=== PATIENT | male | born 1950 | race Caucasian/White ===

== ENCOUNTER → 2023-08-13 07:32 | Outpatient (REF) | payer MEDICARE, OTHER, SELFPAY ==
[2023-08-13 08:12] LABS: % Basophils 0.7 % (0-2); % Eosinophils 2.5 % (0-6); % Immature Granulocytes 1.1 % (0-0.5); % Lymphocytes 27.8 % (20.5-51.1); % Monocytes 11.7 % (1.7-9.3); % Neutrophils 56.2 % (42.2-75.2); Absolute Eosinophils 0.1 10^3/uL (0-0.7); Absolute Immature Granulocytes 0.1 10^3/uL (0-0.05); Absolute Lymphocytes 1.2 10^3/uL (1.2-3.4); Absolute Monocytes 0.5 10^3/uL (0.1-0.6); Absolute Neutrophils 2.5 10^3/uL (1.4-6.5); Hematocrit 29.2 % (39.0-52.0); Hemoglobin 9.4 g/dL (13.0-18.0); Mean Corp Hgb Conc. 32.2 g/dL (33.0-37.0); Mean Corpuscular Hgb 32.9 pg (27.0-31.0); Mean Corpuscular Volume 102.1 fL (80.0-94.0); Mean Platelet Volume 10.2 fL (7.4-10.4); Nucleated Red Blood Cells % 0 % (-); Platelet Count 190 10^3/uL (130-400); Red Blood Cell Count 2.86 10^6/uL (4.70-6.10); Red Cell Dist. Width 14.7 % (11.5-14.5); White Blood Cell Count 4.4 10^3/uL (4.8-10.8)
[2023-08-13 08:49] LABS: ALT (SGPT) 16 U/L (0-50); AST (SGOT) 14 U/L (17-59); Albumin 3.2 g/dl (3.5-5.0); Alkaline Phosphatase 59 U/L (38-126); Blood Urea Nitrogen 25 mg/dl (9-20); Calcium 9.1 mg/dl (8.4-10.2); Carbon Dioxide 22 mmol/L (22-30); Chloride 108 mmol/L (98-107); Glucose 166 mg/dl (70-99); Potassium 4.4 mmol/L (3.5-5.1); Sodium 134 mmol/L (135-145); Total Bilirubin 1.1 mg/dl (0.2-1.3); Total Protein 7.3 g/dl (6.3-8.2); eGFR > 60.00
[2023-08-13 11:16] LABS: Iron 103 ug/dl (49-181)
[2023-08-13 11:25] LABS: Percent Saturation 39 % (20-50); Total Iron Binding Capacity 263 ug/dl (261-462)
== END ==
LOC: REG 07:32
PROVIDERS: ATTENDING PHYSICIAN Internal Medicine Hematology & Oncology; FAMILY PHYSICIAN Internal Medicine Hematology & Oncology; OTHER PHYSICIAN Family Medicine; OTHER PHYSICIAN Internal Medicine Hematology & Oncology; REFERRING PHYSICIAN Internal Medicine Hematology & Oncology
DX: C61 Malignant neoplasm of prostate (principal); E53.9 Vitamin B deficiency, unspecified; D64.9 Anemia, unspecified; C90.00 Multiple myeloma not having achieved remission; C79.51 Secondary malignant neoplasm of bone; D64.81 Anemia due to antineoplastic chemotherapy; N39.0 Urinary tract infection, site not specified
CPT/HCPCS: 36415; 80053; 82728; 83540; 83550; 85025

== ENCOUNTER → 2023-08-20 08:43 | Outpatient (REF) | payer MEDICARE, OTHER, SELFPAY ==
[2023-08-20 09:15] LABS: % Basophils 0.2 % (0-2); % Eosinophils 3.4 % (0-6); % Immature Granulocytes 2.2 % (0-0.5); % Lymphocytes 37.3 % (20.5-51.1); % Neutrophils 42.9 % (42.2-75.2); Absolute Eosinophils 0.1 10^3/uL (0-0.7); Absolute Immature Granulocytes 0.1 10^3/uL (0-0.05); Absolute Lymphocytes 1.5 10^3/uL (1.2-3.4); Absolute Monocytes 0.6 10^3/uL (0.1-0.6); Absolute Neutrophils 1.8 10^3/uL (1.4-6.5); Hematocrit 32.5 % (39.0-52.0); Hemoglobin 10.3 g/dL (13.0-18.0); Mean Corp Hgb Conc. 31.7 g/dL (33.0-37.0); Mean Corpuscular Hgb 33.2 pg (27.0-31.0); Mean Corpuscular Volume 104.8 fL (80.0-94.0); Nucleated Red Blood Cells % 0.5 % (-); Red Cell Dist. Width 15.9 % (11.5-14.5); White Blood Cell Count 4.1 10^3/uL (4.8-10.8)
[2023-08-20 09:27] LABS: ALT (SGPT) 17 U/L (0-50); AST (SGOT) 13 U/L (17-59); Alkaline Phosphatase 66 U/L (38-126); Blood Urea Nitrogen 28 mg/dl (9-20); Calcium 7.9 mg/dl (8.4-10.2); Carbon Dioxide 21 mmol/L (22-30); Chloride 110 mmol/L (98-107); Glucose 166 mg/dl (70-99); Potassium 4.5 mmol/L (3.5-5.1); Sodium 135 mmol/L (135-145); Total Bilirubin 1.1 mg/dl (0.2-1.3); Total Protein 6.6 g/dl (6.3-8.2); eGFR > 60.00
[2023-08-20 10:00] LABS: PSA, Total - Diagnostic < 0.06 ng/ml (0.0-4.0)
[2023-08-20 10:40] LABS: Mean Platelet Volume 11.2 fL (7.4-10.4); Platelet Count 126 10^3/uL (130-400)
== END ==
LOC: REG 08:43
PROVIDERS: ATTENDING PHYSICIAN Internal Medicine Hematology & Oncology; OTHER PHYSICIAN Family Medicine; OTHER PHYSICIAN Internal Medicine Hematology & Oncology; REFERRING PHYSICIAN Specialist
DX: C61 Malignant neoplasm of prostate (principal); E53.9 Vitamin B deficiency, unspecified; D64.9 Anemia, unspecified; C90.00 Multiple myeloma not having achieved remission; D64.81 Anemia due to antineoplastic chemotherapy; N39.0 Urinary tract infection, site not specified
CPT/HCPCS: 36415; 80053; 84153; 84403; 85025

== ENCOUNTER → 2023-08-27 08:11 | Outpatient (REF) | payer MEDICARE, OTHER, SELFPAY ==
[2023-08-27 09:00] LABS: % Eosinophils 1.2 % (0-6); % Immature Granulocytes 0.7 % (0-0.5); % Monocytes 14.4 % (1.7-9.3); % Neutrophils 55.7 % (42.2-75.2); Absolute Eosinophils 0.1 10^3/uL (0-0.7); Absolute Lymphocytes 1.1 10^3/uL (1.2-3.4); Absolute Monocytes 0.6 10^3/uL (0.1-0.6); Absolute Neutrophils 2.2 10^3/uL (1.4-6.5); Hemoglobin 9.9 g/dL (13.0-18.0); Mean Corp Hgb Conc. 31.9 g/dL (33.0-37.0); Mean Corpuscular Hgb 32.7 pg (27.0-31.0); Mean Corpuscular Volume 102.3 fL (80.0-94.0); Mean Platelet Volume 11.2 fL (7.4-10.4); Nucleated Red Blood Cells % 0 % (-); Platelet Count 150 10^3/uL (130-400); Red Blood Cell Count 3.03 10^6/uL (4.70-6.10); Red Cell Dist. Width 16.3 % (11.5-14.5)
[2023-08-27 09:31] LABS: ALT (SGPT) 15 U/L (0-50); AST (SGOT) 12 U/L (17-59); Albumin 2.8 g/dl (3.5-5.0); Alkaline Phosphatase 64 U/L (38-126); Blood Urea Nitrogen 29 mg/dl (9-20); Calcium 8.5 mg/dl (8.4-10.2); Carbon Dioxide 20 mmol/L (22-30); Chloride 107 mmol/L (98-107); Glucose 176 mg/dl (70-99); Potassium 4.7 mmol/L (3.5-5.1); Sodium 136 mmol/L (135-145); Total Protein 6.9 g/dl (6.3-8.2); eGFR > 60.00
== END ==
LOC: REG 08:11
PROVIDERS: ATTENDING PHYSICIAN Internal Medicine Hematology & Oncology; FAMILY PHYSICIAN Family Medicine; OTHER PHYSICIAN Internal Medicine Cardiovascular Disease; REFERRING PHYSICIAN Internal Medicine Hematology & Oncology
DX: C61 Malignant neoplasm of prostate (principal); E53.9 Vitamin B deficiency, unspecified; D64.9 Anemia, unspecified
CPT/HCPCS: 36415; 80053; 85025

== ENCOUNTER 2023-08-30 21:15 | Observation (INO) | payer MEDICARE, OTHER, SELFPAY ==
[2023-08-30] VITALS (8 sets, daily range): BP systolic 120–142; BP diastolic 75–87; BMI 31.7; BMI 30.8
[2023-08-30 16:23] LABS: % Eosinophils 0.9 % (0-6); % Immature Granulocytes 1.2 % (0-0.5); % Lymphocytes 19.4 % (20.5-51.1); % Monocytes 18.2 % (1.7-9.3); % Neutrophils 60.3 % (42.2-75.2); Absolute Lymphocytes 0.7 10^3/uL (1.2-3.4); Absolute Monocytes 0.6 10^3/uL (0.1-0.6); Absolute Neutrophils 2.1 10^3/uL (1.4-6.5); Hematocrit 29.3 % (39.0-52.0); Hemoglobin 9.8 g/dL (13.0-18.0); Mean Corp Hgb Conc. 33.4 g/dL (33.0-37.0); Mean Corpuscular Hgb 33.1 pg (27.0-31.0); Nucleated Red Blood Cells % 2.1 % (-); Platelet Count 140 10^3/uL (130-400); Red Blood Cell Count 2.96 10^6/uL (4.70-6.10); Red Cell Dist. Width 16.1 % (11.5-14.5); White Blood Cell Count 3.4 10^3/uL (4.8-10.8)
[2023-08-30 16:32] LABS: INR 1.15; PT 14.8 Sec (11.4-14.6)
[2023-08-30 16:33] LABS: APTT 25.4 Sec (23.4-35.0)
--- NOTE | 2023-08-30 16:34 | ED.GENMED ---
History of Present Illness
General
Chief Complaint: Breathing Problem
Source: patient
Exam Limitations: none
Time Seen by Provider: 08/30/23 16:22
Travel History
Have you had any contact with someone who has COVID-19?: No
Do you have any symptoms of coronavirus? Fever > 100 degrees, chills, cough, shortness of breath, sore throat, loss of taste or smell, muscle aches, or headache?: No
History of Present Illness
History of Present Illness:
See MDM
Past History
Past History
ED Past Medical History: Cancer, HTN and Other (renal stones, diveticulitis, hx of urosepsis)
ED Past Surgical History: None
Social History
Tobacco: Non-smoker
Personal:
Living: with family
Employment: Employed
Phy Exam
Physical Exam
Physical Exam:
See MDM
Scores
Heart Failure Risk
Heart Failure Risk Score: Yes
History of Stroke or TIA: No
History of intubation for respiratory distress: No
Heart rate on ED arrival >/= 110: Yes
SaO2 <90% on arrival on room air: No
HR >/=110 during 3min walk test (or too ill to perform test): Yes
ECG has acute ischemic changes: No
Urea >/=12mmol/L (BUN 33.6mg/dL): Yes
Serum CO2>/=35mmol/L: No
Troponin I or T elevated to SC Level (0.4mg/dL): No
NT-proBNP >/=5,000ng/L (5,000pg/ml): Yes
HF Risk Score: 4
Admission Status: HIGH RISK 26.1% Consider SNF treatment or admission to hospital
Course
Orders/Labs/Results
Orders:
Orders
08/30/23 16:05
Electrocardiogram (*1) Urgent
Reason for Study: Tachycardia
08/30/23 16:06
EKG- Treatment ONCE
08/30/23 16:16
COVID-19 Antigen Urgent
Source: Nasal Swab
Complete Blood Count/With Diff Urgent
Comprehensive Metabolic Panel Urgent
Protime/PTT Urgent
Troponin I Urgent
Influenza A+B Rapid Molecular Urgent
EMELY Source: Nasal Swab
Specimen Description:
08/30/23 16:31
CT Chest Pe Study Urgent
Comment:
Reason For Exam: SOB, hx cancer
08/30/23 16:47
NT-proBNP Urgent
08/30/23 19:29
Furosemide [Lasix] 40 mg IV NOW STA
Abnormal Lab Results
08/30/23
16:16
WBC 3.4 L 10^3/uL
(4.8-10.8)
RBC 2.96 L 10^6/uL
(4.70-6.10)
Hgb 9.8 L g/dL
(13.0-18.0)
Hct 29.3 L %
(39.0-52.0)
MCV 99.0 H fL
(80.0-94.0)
MCH 33.1 H pg
(27.0-31.0)
RDW 16.1 H %
(11.5-14.5)
MPV 11.0 H fL
(7.4-10.4)
Absolute Lymphs (auto) 0.7 L 10^3/uL
(1.2-3.4)
Immature Gran % 1.2 H %
(0-0.5)
Lymphocytes % 19.4 L %
(20.5-51.1)
Monocytes % 18.2 H %
(1.7-9.3)
PT 14.8 H Sec
(11.4-14.6)
Carbon Dioxide 17 L mmol/L
(22-30)
BUN 48 H mg/dl
(9-20)
Glucose 289 H mg/dl
(70-99)
AST 14 L U/L
(17-59)
Albumin 3.1 L g/dl
(3.5-5.0)
08/30/23 16:16
08/30/23 16:16
Vital Signs
Initial and Last Documented VS:
Initial Vital Signs
Temp Pulse Resp BP Pulse Ox
98.1 F 115 18 125/75 95
08/30/23 16:03 08/30/23 16:03 08/30/23 16:03 08/30/23 16:03 08/30/23 16:03
Last Documented Vital Signs
Temp Pulse Resp BP Pulse Ox
98.1 F 110 30 138/87 91
08/30/23 16:03 08/30/23 18:45 08/30/23 18:45 08/30/23 18:16 08/30/23 18:45
MDM/Problems Addressed
Differential Diagnosis Includes:
HPI and MDM Narrative:
73-year-old male presenting for shortness of breath. He was seen by his process manufacturing engineer today and had an echo showing enlarged right ventricle. Given his tachycardia and history of active multiple myeloma, he was sent in to rule out PE. Patient
denies chest pain. He denies unilateral leg pain. He had developed bilateral distal leg pitting edema for which she was placed on Lasix.
Given his history, will obtain CT rule out PE
Physical exam
General: Well appearing and non-toxic
HEENT: protecting airway
Neck: appears supple
CV: No evidence of cyanosis. Tachycardic
Resp: No accessory muscle use. Tachypnea. Lungs clear
Abd: Non-distended
Extremities: No deformities. No leg tenderness
Neuro: alert
Psych: Normal affect
Skin: Intact
Problems Addressed including Acute and Chronic Conditions affecting care:
1. Shortness of breath
Acuity: acute
Prognosis: stable
Details: Given his history of cancer and worsening RV dilation on outpatient echo, will obtain CT to rule out PE
Updates
CT negative for PE. There are multiple nodules which could be metastatic disease. Given his elevated BNP, will give IV Lasix
I did touch base with his process manufacturing engineer who agrees with plan.
Differential Diagnosis (but not limited to): Pulmonary embolism, pneumonia
Testing considered: D-dimer but patient is high risk
Drug therapy (if applicable): OTC meds, please see d/c instruction regarding Rx drugs
Amount and/or Complexity of Data Reviewed
Clinical info obtained from: Patient
External data reviewed: N/A
Labs I independently reviewed (but not limited to): Elevated BNP
Radiology: The CT scan was personally and independently reviewed. In addition, official CT report reviewed.
Pulse Ox: not hypoxic
EKG independently reviewed: Sinus tachycardia, PACs, right bundle branch block, no STEMI
Gauge Maker Apprentice: N/A
Critical Care: N/A
Risk of Complication:
Social Determinants of health: Good social support
Discussed with other providers: Cardiology, hospitalist
Escalation of Care includes Admit/Obs: Given CHF exacerbation, will admit
Occasional wrong word or 'sound a like' substitutions may have occurred due to the inherent limitations of voice recognition software. Read the chart carefully and recognize, using context, where substitutions have occurred.
*Critical Care Note
Total Time (30-74mins, 75-104mins- exclusive of procedures): Not Applicable
ED Attending Note
-
Portions of this chart may have been created with voice recognition software.� Occasional wrong word or��sound alike� substitutions may have occurred due to the inherent limitations of voice recognition software.
Discharge Plan
Departure
Patient Disposition: Admit
Date of Disposition: 08/30/23
Time of Disposition: 19:35
Admit to: Telemetry
Presentation/result/management discussed w/ accepting MD/DO: Hospitalist
Discharge Problem:
Acute exacerbation of CHF (congestive heart failure)
Prescriptions:
No Action
aspirin 81 MG tablet,delayed release (DR/EC)
81 mg PO DAILY Qty: 0
valsartan 40 MG tablet
40 mg PO DAILY
red yeast rice 600 MG tablet
1,200 mg PO DAILY
cholecalciferol (vitamin D3) 1,000 UNITS tablet
1,000 units PO DAILY
cyanocobalamin (vitamin B-12) 1,000 mcg Tablet
1,000 mcg PO DAILY
acyclovir 400 mg Tablet
400 mg PO BID
tamsulosin [Flomax] 0.4 mg Capsule
0.4 mg PO QPM
dexamethasone 4 mg tablet
20 mg PO USEASDIRECTD
Patient Comments:
10/22/22- patients take with he gets valcade infuison
Rx Instructions:
Take once weekly on Sun/ for 3 weeks, 1 week off
loratadine [Claritin] 10 mg Tablet
10 mg PO DAILY PRN (Reason: allergies)
Xgeva 120 mg/1.7 mL (70 mg/mL) Solution
120 mg SC [id number]
coQ10 (ubiquinol) 100 mg Capsule
100 mg PO DAILY
zolpidem [Ambien] 5 mg Tablet
5 mg PO HS PRN (Reason: insomnia)
Patient Comments:
08/30/2023: last filled 04/23/23, 30 tabs for 30 days from [id number]
furosemide 40 mg tablet
40 mg PO DAILY
glipizide 5 mg tablet extended release 24hr
5 mg PO DAILY
sildenafil 100 mg tablet
100 mg PO DAILY PRN (Reason: ed)
metformin 750 mg tablet extended release 24 hr
1,500 mg PO BID
Pomalyst 2 mg capsule
2 mg PO USEASDIRECTD
Patient Comments:
08/30/2023: Pt just started cycle on Sunday (08/27/23)
Rx Instructions:
Take 1 tab daily for 21 days, 7 days off.
Kyprolis
0 mg IV USEASDIRECTD
Rx Instructions:
Once weekly for 3 weeks, 1 week off
Referrals:
Eloy Hunter MD [Family Provider] -
Interventions
Interventions:
*Risk Screen - Suicide Last Done: 08/30/23 16:03
*General Assessment Last Done: 08/30/23 16:03
*Neglect/Abuse Screening Last Done: 08/30/23 16:03
ED- Fall Risk Assessment Last Done: 08/30/23 17:41
*ED COVID-19 Vaccine History Last Done: 08/30/23 16:03
ED- Cardiac Assessment Last Done: 08/30/23 17:40
ED- Pulmonary Assessment Last Done: 08/30/23 17:40
[2023-08-30 16:45] LABS: ALT (SGPT) 22 U/L (0-50); AST (SGOT) 14 U/L (17-59); Albumin 3.1 g/dl (3.5-5.0); Alkaline Phosphatase 60 U/L (38-126); Blood Urea Nitrogen 48 mg/dl (9-20); Calcium 8.4 mg/dl (8.4-10.2); Carbon Dioxide 17 mmol/L (22-30); Chloride 107 mmol/L (98-107); Estimated Creatinine Clearance 56 ml/min; Glucose 289 mg/dl (70-99); Potassium 4.6 mmol/L (3.5-5.1); Sodium 135 mmol/L (135-145); Total Bilirubin 0.8 mg/dl (0.2-1.3); Total Protein 7.4 g/dl (6.3-8.2); Troponin I < 0.012 ng/ml; eGFR 57.65
[2023-08-30 16:55] LABS: COVID-19 Antigen Negative (Negative)
[2023-08-30 17:16] LABS: NT-proBNP 7040 pg/ml
[2023-08-30] MEDS: LASIX 40 MG IV (19:37)
--- NOTE | 2023-08-30 20:21 | HPS.HSE ---
Family Physician
-
Family Physician: Eloy Hunter
Chief Complaint
-
shortness of breath
History of Present Illness
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
June which has become significantly noticeable over the past few days. Shortness of breath with exertion. He denies any cough or hemoptysis or fevers or chills. He has also noticed increased heart rate over the past few days. Denies any
palpitations or dizziness. Denies any lower extremity edema. He was thought to be volume overloaded in June and was started on Lasix by his lead cashier Dr. Ginger Lal and lost 11 pounds at that time.
He was seen by Ginger and had echocardiogram today which showed enlarged RV and sent to emergency room to evaluate for pulmonary embolism.
Patient has history of multiple myeloma followed at [place]. He is currently on treatment with pomalidomide and Xgeva infusions which he has been on for a long time.
He is no longer on treatment for prostate cancer.
Denies smoking or alcohol use.
Medical History
Past Medical History
Past Medical History: Reports Other (multiple myeloma, anemia, prostate cancer status post prostatectomy and radiation, diabetes, hypertension, renal stones)
Past Surgical History: Reports None
Social History
Tobacco: Non-smoker
Alcohol: None
Drug: None
Family History
Family History: Not pertinent
Allergies / Home Medications
Allergies reflects when Allergies were last updated in [facility].
Home Medications with original date entered in [facility]
Allergy/Medication List:
Allergies
Allergy/AdvReac Type Severity Reaction Status Date / Time
bacitracin Allergy redness Verified 08/30/23 16:05
[From Neosporin
([id number])]
neomycin Allergy redness Verified 08/30/23 16:05
[From Neosporin
([id number])]
polymyxin B Allergy redness Verified 08/30/23 16:05
[From Neosporin
([id number])]
Home Medications
aspirin 81 mg tablet,delayed release 81 mg PO DAILY Blood clot prevention/tx ##0 03/12/15
valsartan 40 mg tablet 40 mg PO DAILY Blood pressure 03/12/15
red yeast rice 600 mg tablet 1,200 mg PO DAILY Supplement 11/13/15
cholecalciferol (vitamin D3) 25 mcg (1,000 unit) tablet 1,000 units PO DAILY Supplement 08/20/20
acyclovir 400 mg tablet 400 mg PO BID Infection 10/22/22
coQ10 (ubiquinol) 100 mg capsule 100 mg PO DAILY Supplement 10/22/22
cyanocobalamin (vitamin B-12) 1,000 mcg tablet 1,000 mcg PO DAILY Supplement 10/22/22
denosumab 120 mg/1.7 mL (70 mg/mL) subcutaneous solution (Xgeva) 120 mg SC [id number] Cancer 10/22/22
dexamethasone 4 mg tablet 20 mg PO USEASDIRECTD Anti-inflammatory 10/22/22
loratadine 10 mg tablet (Claritin) 10 mg PO DAILY PRN allergies 10/22/22
tamsulosin 0.4 mg capsule (Flomax) 0.4 mg PO QPM Urinary issue 10/22/22
zolpidem 5 mg tablet (Ambien) 5 mg PO HS PRN insomnia 01/15/23
Kyprolis 0 mg IV USEASDIRECTD 08/30/23
furosemide 40 mg tablet 40 mg PO DAILY 08/30/23
glipizide 5 mg tablet, extended release 24 hr 5 mg PO DAILY 08/30/23
metformin 750 mg tablet,extended release 24 hr 1,500 mg PO BID 08/30/23
pomalidomide 2 mg capsule (Pomalyst) 2 mg PO USEASDIRECTD 08/30/23
sildenafil 100 mg tablet 100 mg PO DAILY PRN ed 08/30/23
Review of Systems
-
History Source: Patient
A 12 point ROS was completed and negative except as noted: Yes
Constitutional: Reports No Symptoms
EENT: Reports No Symptoms
Respiratory: Reports See HPI
Cardiac: Reports See HPI
Abdomen/GI: Reports No Symptoms
: Reports No Symptoms
Musculoskeletal: Reports No Symptoms
Skin: Reports No Symptoms
Neurological: Reports No Symptoms
Endocrine: Reports No Symptoms
Hematologic/Lymphatic: Reports No Symptoms
Psych: Reports No Symptoms
Physical Exam
Vital Signs
Vital Signs
Temp Pulse Resp BP Pulse Ox
98.1 F 111 29 124/77 91
08/30/23 16:03 08/30/23 19:41 08/30/23 19:41 08/30/23 19:41 08/30/23 19:41
Physical Exam
General: Well Developed, Well Nourished and No Apparent Distress
HEENT: NormoCephalic, Moist mucous membranes and Atraumatic
Respiratory: Clear
Cardiac: S1/S2 and Regular Rhythm; No Murmur or Rub
GI: Soft, Non Tender, Non Distended and Normal Bowel Sounds; No Organomegaly
Rectal: Deferred by Provider
Musculoskeletal: No Clubbing, No Cyanosis and No Edema
Skin: No Rash
Neuro: Nonfocal/grossly intact
Laboratory Results
-
08/30/23 16:16
08/30/23 16:16
Laboratory Results
PT 14.8 Sec (11.4-14.6) H 08/30/23 16:16
INR 1.15 08/30/23 16:16
APTT 25.4 Sec (23.4-35.0) 08/30/23 16:16
Total Bilirubin 0.8 mg/dl (0.2-1.3) 08/30/23 16:16
AST 14 U/L (17-59) L 08/30/23 16:16
ALT 22 U/L (0-50) 08/30/23 16:16
Alkaline Phosphatase 60 U/L (38-126) 08/30/23 16:16
Troponin I < 0.012 ng/ml 08/30/23 16:16
Data Reviewed
-
Lab Data: Labs Reviewed by me
Old Records: Reviewed
Impression/Plan
-
IMPRESSION:
PLAN:
# Dyspnea secondary to acute on chronic HFpEF exacerbation
# Right ventricular dysfunction likely related to cardiotoxicity from myeloma medications
-CT PE does not show evidence of pulmonary embolism
-Echo shows EF of 55 to 60%, increased RV pressure with moderately enlarged right ventricle with moderate right ventricular dysfunction
-Cardiac BNP of 7000 from 500 in June
-Check I's and O's, daily weights
-40 IV Lasix daily
-Cardiology consulted
# Chronic pulmonary nodules within upper/mid lungs/right upper lobe apical cavitary nodule
-Prior PET scan did not show increased uptake on prior PET scan from 2021
-Thought to not related to malignancy by oncology
-Outpatient follow-up with pulmonary
Multiple myeloma
-Continue pomalidomide
-On Xgeva with dexamethasone
-Continue prophylactic acyclovir
Chronic anemia
-Hemoglobin stable
Chronic leukopenia
-Likely secondary to pomalidomide
Prostate cancer status post prostatectomy/radiation
-Continue tamsulosin
Type 2 diabetes
-Continue glipizide, metformin
Essential hypertension
-Continue valsartan
-Continue prophylactic aspirin
History of renal stones
Full code
DVT prophylaxis�heparin
Cardiac diet
--- NOTE | 2023-08-30 22:15 | PTCARENOTE ---
Patient received from ED via stretcher. Patient ambulated into the room. AAOx3, VSS. 96% on RA. Reports shortness of breath with exertion. Denies any pain. Patient and educated on medications, plan of care, and visiting hours. Patient given
call bal, made comfortable in the room.
[2023-08-31 03:30] VITALS: BP 112/57
[2023-08-31 05:30] VITALS: BMI 30.3
[2023-08-31 07:37] LABS: % Eosinophils 0.5 % (0-6); % Immature Granulocytes 1.2 % (0-0.5); % Lymphocytes 25.1 % (20.5-51.1); % Monocytes 15.4 % (1.7-9.3); % Neutrophils 57.8 % (42.2-75.2); Absolute Immature Granulocytes 0.1 10^3/uL (0-0.05); Absolute Lymphocytes 1.1 10^3/uL (1.2-3.4); Absolute Monocytes 0.7 10^3/uL (0.1-0.6); Absolute Neutrophils 2.4 10^3/uL (1.4-6.5); Hematocrit 31.1 % (39.0-52.0); Hemoglobin 10.3 g/dL (13.0-18.0); Mean Corp Hgb Conc. 33.1 g/dL (33.0-37.0); Mean Corpuscular Hgb 32.7 pg (27.0-31.0); Mean Corpuscular Volume 98.7 fL (80.0-94.0); Mean Platelet Volume 11.2 fL (7.4-10.4); Nucleated Red Blood Cells % 3.3 % (-); Platelet Count 149 10^3/uL (130-400); Red Blood Cell Count 3.15 10^6/uL (4.70-6.10); White Blood Cell Count 4.2 10^3/uL (4.8-10.8)
[2023-08-31 07:41] LABS: Glucose - Point of Care 191 mg/dl (70-99)
[2023-08-31 07:55] VITALS: BP 100/66
--- NOTE | 2023-08-31 08:03 | CON.CAR ---
Addendum entered and electronically signed by Thierno Covarrubias MD 08/31/23 10:19:
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
diuresis but now with RV dysfunction by echo with pulmonary hypertension. CT scan was negative for pulmonary embolus, proBNP 7040 and admitted for presumed acute on chronic HFpEF with RV involvement. He has diuresed very successfully overnight and
wants to go home now.
Allergies: Neosporin
Home medications: Acyclovir, aspirin, cholecalciferol, co-Q10, furosemide 40 mg a day, glipizide 5 mg daily, Chi prolapse, metformin 1500 mg twice daily, Pomalyst, red yeast rice, sildenafil, tamsulosin, valsartan 40 mg a day, Xgeva, Ambien
PMH: Diabetes, hypertension, hyperlipidemia, HFpEF, right bundle branch block, mild aortic stenosis, multiple myeloma, prostate cancer, status post prostatectomy, fatty liver, degenerative disc disease
PSH: Prostatectomy, cataracts
Social history non-smoker nonalcoholic, , retired
FH: Reviewed
ROS negative except as above
100/66, pulse 96, respirate 18, temp 37, sats 95%, weight is 90.3 kg, had been 94.6 kg on admission
Lungs are clear
Head neck exam is unremarkable, regular rate and rhythm, no obvious murmurs neck veins are okay, abdomen benign extremities without edema neuro nonfocal musculoskeletal intact, pulses intact
Hemoglobin 10.3, platelets 149, BUN and creatinine 40 and 1.2, potassium 4.5, bili is 1.5, proBNP 7040, troponin undetectable,
EKG sinus tach cardia, right bundle branch block, PVCs
Impression:
Presents 08/30/2022 with SOB
Acute on chronic heart failure with preserved EF, proBNP
Abnormal echocardiogram
Type 2 DM
Hyperlipidemia
Hypertension
Heart failure with preserved ejection fraction
RBBB
Mild aortic valve stenosis
Multiple myeloma on monthly Xgeva and pomalidomide infusions (Dr. Love Sandoval)
Chronic pulmonary nodules within upper/mid lungs/right upper lobe apical cavitary nodule
Prostate cancer s/p prostatectomy
Kidney Stones
Adenomatous polyps����
Lumbar Spine DDD, h/o sciatica
H/o Sepsis, 03/2015 E coli d/t prostatitis
Hx diverticulitis
Echo 08/30/2023: EF 55 to 60%.� Mild concentric LVH. Jose EPIQ left ventricular� global longitudinal strain is -16.1%. D-shaped interventricular septum in systole and diastole consistent with RV pressure and volume overload.� Moderately enlarged
RV with mild to moderate RV dysfunction.� Mild aortic stenosis peak/mean gradient 18/11 mmHg with MARYELLEN 1.5 cm�.� Mild TR with PAP 55 mmHg
Echocardiogram 03/29/2023:�EF 60 to 65%. Mild LVH. LV Jose epic global longitudinal strain is -17.5%. Dilated right ventricle with overall preserved RV systolic function. Trace MR. Trace to mild TR. Trileaflet mildly stenotic aortic valve with
peak/mean gradients 25/15 mmHg. Trivial aortic regurgitation.
Plan:
He seems improved at this time from a heart failure standpoint.
Okay to transition to oral furosemide. I will start 80 mg a day tomorrow.
Previously he has been on Jardiance and did not tolerate. Would not restart.
I discussed with Dr. Miles regarding addition of spironolactone. She would prefer to hold off.
Okay for discharge from cardiac standpoint.
Recommended cardiac medications at discharge:
Aspirin 81 mg a day
Furosemide 80 mg a day
Valsartan 40 mg a day
Other medications per hospitalist
Please order BMP and proBNP for next week
We will arrange for cardiac follow-up. Please call if questions.
Kyprolis associated with CHF and pulmonary hypertension, interstitial lung disease inhibits 26S proteasome
Original Note:
Documented by User: Whit Da Silva PA-C 08/31/23 10:05
Consultation
Consultation Request
Date/Time Consultation Requested: 08/30/2023
Date/Time Consultation Performed: 08/31/2023
Requesting Provider: Dr. Gipson
Performing Provider: Whit Da Silva PA-C for Dr. CHRISTIANO Covarrubias
Reason for Consultation: SOB
Medical History
-
History of Present Illness:
Patient is a 73-year-old male with past medical history of hypertension, hyperlipidemia, heart failure with preserved ejection fraction, right bundle branch block, mild aortic stenosis, multiple myeloma, prostate cancer status post prostatectomy who
presents to emergency department with complaints of shortness of breath since June. Patient was placed on Lasix as outpatient and diuresed at least 11 pounds. He was seen in outpatient cardiology office with ongoing shortness of breath despite
diuretic therapy and an echocardiogram was performed 08/30/2023 which demonstrated moderately enlarged RV with mild to moderate right ventricular dysfunction and PA pressure of 55 mmHg. There was concern given new findings patient may have pulmonary
embolism and he was sent to emergency department for evaluation. Workup in emergency department included CT chest which was negative for pulmonary embolism. There was numerous pulmonary nodules and diffuse fatty liver infiltration. proBNP was
7040 up from 545 in June. Troponin was undetectable. EKG demonstrated sinus tachycardia at 121 bpm with right bundle branch block and PVCs. Patient was provided IV Lasix 40 mg.
PMH:
Type 2 DM
Hyperlipidemia
Hypertension
Heart failure with preserved ejection fraction
RBBB
Mild aortic valve stenosis
Multiple myeloma
Prostate cancer s/p prostatectomy
Kidney Stones
Adenomatous polyps����
Moderate diffuse fatty liver
Lumbar Spine DDD, h/o sciatica
H/o Sepsis, 03/2015 E coli d/t prostatitis
Hx diverticulitis
Past Medical History
Past Medical History: Other (See HPI)
Past Surgical History: Urological (s/p Prostatectomy 08/24/2020) and Other (Cataract extraction)
Social History
Tobacco: Non-Smoker
Alcohol: None
Drug: None
Personal:
Living: With Family
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
Family History
Family History: Other (Father: Heart disease, hypertension. Mother: Diabetes, hypertension)
Allergies / Home Medications
Allergy/AdvReac Type Severity Reaction Status Date / Time
bacitracin Allergy redness Verified 08/30/23 16:05
[From Neosporin
([id number])]
neomycin Allergy redness Verified 08/30/23 16:05
[From Neosporin
([id number])]
polymyxin B Allergy redness Verified 08/30/23 16:05
[From Neosporin
([id number])]
Medication Instructions Recorded Confirmed Type
aspirin 81 mg tablet,delayed 81 mg PO DAILY Blood clot 03/12/15 08/30/23 History
release prevention/tx ##0
valsartan 40 mg tablet 40 mg PO DAILY Blood pressure 03/12/15 08/30/23 History
red yeast rice 600 mg tablet 1,200 mg PO DAILY Supplement 11/13/15 08/30/23 History
cholecalciferol (vitamin D3) 25 1,000 units PO DAILY Supplement 08/20/20 08/30/23 History
mcg (1,000 unit) tablet
acyclovir 400 mg tablet 400 mg PO BID Infection 10/22/22 08/30/23 History
coQ10 (ubiquinol) 100 mg capsule 100 mg PO DAILY Supplement 10/22/22 08/30/23 History
cyanocobalamin (vitamin B-12) 1,000 mcg PO DAILY Supplement 10/22/22 08/30/23 History
1,000 mcg tablet
denosumab 120 mg/1.7 mL (70 mg/mL) 120 mg SC [id number] Cancer 10/22/22 08/30/23 History
subcutaneous solution (Xgeva)
dexamethasone 4 mg tablet 20 mg PO USEASDIRECTD 10/22/22 08/30/23 History
Anti-inflammatory
loratadine 10 mg tablet (Claritin) 10 mg PO DAILY PRN allergies 10/22/22 08/30/23 History
tamsulosin 0.4 mg capsule (Flomax) 0.4 mg PO QPM Urinary issue 10/22/22 08/30/23 History
zolpidem 5 mg tablet (Ambien) 5 mg PO HS PRN insomnia 01/15/23 08/30/23 History
Kyprolis 0 mg IV USEASDIRECTD 08/30/23 08/30/23 History
furosemide 40 mg tablet 40 mg PO DAILY 08/30/23 08/30/23 History
glipizide 5 mg tablet, extended 5 mg PO DAILY 08/30/23 08/30/23 History
release 24 hr
metformin 750 mg tablet,extended 1,500 mg PO BID 08/30/23 08/30/23 History
release 24 hr
pomalidomide 2 mg capsule 2 mg PO USEASDIRECTD 08/30/23 08/30/23 History
(Pomalyst)
sildenafil 100 mg tablet 100 mg PO DAILY PRN ed 08/30/23 08/30/23 History
Review of Systems
-
History Source: Patient
All other systems: Negative unless noted
Physical Exam
Vital Signs
Temp Pulse Resp BP Pulse Ox
98.0 F 100 18 112/57 95
08/31/23 03:30 08/31/23 03:30 08/31/23 03:30 08/31/23 03:30 08/31/23 03:30
GEN: No distress, awake, Ox3
HEENT: supple, anicteric, mmm
LUNGS: CTA, no wheezes/rales
CV: Reg, S1/S2, 1/6 syst LSB murmur
ABD: soft, BS+, NT/ND
EXT: No edema, clubbing or cyanosis
NEURO: Gross non-focal
SKIN: No rash, warm dry, pink
Lab Results
08/31/23 07:13
Troponin I < 0.012 ng/ml 08/30/23 16:16
Ouc-X-Aaineovhlay Pept 7040 pg/ml 08/30/23 16:47
Impression / Plan
-
PCP: Eloy Hunter
Spa Associate: Ginger Lal
Impression:
Presents 08/30/2022 with SOB
Acute on chronic heart failure with preserved EF, proBNP
Abnormal echocardiogram
Type 2 DM
Hyperlipidemia
Hypertension
Heart failure with preserved ejection fraction
RBBB
Mild aortic valve stenosis
Multiple myeloma on monthly Xgeva and pomalidomide infusions (Dr. Love Sadnoval)
Chronic pulmonary nodules within upper/mid lungs/right upper lobe apical cavitary nodule
Prostate cancer s/p prostatectomy
Kidney Stones
Adenomatous polyps����
Lumbar Spine DDD, h/o sciatica
H/o Sepsis, 03/2015 E coli d/t prostatitis
Hx diverticulitis
Echo 08/30/2023: EF 55 to 60%. Mild concentric LVH. Jose EPIQ left ventricular global longitudinal strain is -16.1%. D-shaped interventricular septum in systole and diastole consistent with RV pressure and volume overload. Moderately enlarged
RV with mild to moderate RV dysfunction. Mild aortic stenosis peak/mean gradient 18/11 mmHg with MARYELLEN 1.5 cm�. Mild TR with PAP 55 mmHg
Echocardiogram 03/29/2023: EF 60 to 65%. Mild LVH. LV Jose epic global longitudinal strain is -17.5%. Dilated right ventricle with overall preserved RV systolic function. Trace MR. Trace to mild TR. Trileaflet mildly stenotic aortic valve with
peak/mean gradients 25/15 mmHg. Trivial aortic regurgitation.
Plan:
Patient is a 73-year-old male with past medical history of hypertension, hyperlipidemia, heart failure with preserved ejection fraction, right bundle branch block, mild aortic stenosis, multiple myeloma, prostate cancer status post prostatectomy who
presents to emergency department with complaints of shortness of breath since June. Patient was placed on Lasix as outpatient and diuresed at least 11 pounds. He was seen in outpatient cardiology office with ongoing shortness of breath despite
diuretic therapy and an echocardiogram was performed 08/30/2023 which demonstrated moderately enlarged RV with mild to moderate right ventricular dysfunction and PA pressure of 55 mmHg. There was concern given new findings patient may have pulmonary
embolism and he was sent to emergency department for evaluation. Workup in emergency department included CT chest which was negative for pulmonary embolism. There was numerous pulmonary nodules and diffuse fatty liver infiltration. proBNP was
7040 up from 545 in June. Troponin was undetectable. EKG demonstrated sinus tachycardia at 121 bpm with right bundle branch block and PVCs. Patient was provided IV Lasix 40 mg.
-Presented 08/30/2022 with persistent shortness of breath despite outpatient diuretic therapy.
-Acute on chronic heart failure with preserved ejection fraction, proBNP 7040 up from 545 in June 2023.
-Patient has good response and is down at least 3 to 4 pounds overnight if not more. Continue IV diuresis with Lasix 40 mg
-Monitor and trend electrolytes and renal function
-History of hypertension maintained on valsartan as outpatient. Continue to monitor blood pressure with diuresis with hold parameters
-Chronic anemia, hemoglobin stable at 10.3
-Diabetes maintained on metformin and glipizide as outpatient
-History of multiple myeloma maintained on monthly Xgeva and pomalidomide infusions (Dr. Love Sandoval)

Documented by User: Thierno Covarrubias MD 08/31/23 10:16
Data Reviewed
-
EKG: Tracing Personally Visualized and interpreted
Radiology: Image Personally Visualized and interpreted
CT Scan: Report Reviewed by me
Medical Tests (Nuc Med, Echo etc): Report Reviewed by me
Labs: Labs Reviewed by me
Old Records: Reviewed
[2023-08-31] MEDS: LASIX 40 MG IV (08:05)
[2023-08-31] MEDS: HEPARIN 5000 UNITS SC (08:05)
[2023-08-31 08:22] LABS: ALT (SGPT) 20 U/L (0-50); AST (SGOT) 13 U/L (17-59); Albumin 3.2 g/dl (3.5-5.0); Alkaline Phosphatase 67 U/L (38-126); Blood Urea Nitrogen 40 mg/dl (9-20); Calcium 8.1 mg/dl (8.4-10.2); Carbon Dioxide 18 mmol/L (22-30); Chloride 110 mmol/L (98-107); Estimated Creatinine Clearance 59 ml/min; Glucose 187 mg/dl (70-99); Potassium 4.5 mmol/L (3.5-5.1); Sodium 135 mmol/L (135-145); Total Bilirubin 1.5 mg/dl (0.2-1.3); Total Protein 7.9 g/dl (6.3-8.2); eGFR > 60.00
--- NOTE | 2023-08-31 11:06 | W.HF.CON ---
Heart Failure
- LV Function
Left ventricular function study result: LV Ejection fraction >40%
Ejection Fraction Percentage: 55-60
- ARNI
Patient already on ARNI: No
Heart Failure ARNI Not Indicated: LV Ejection Fraction >/= 40%
- ACEI/ARB
Patient already on ACEI/ARB: Yes
- Beta Margo
Patient already on Evidence Based Beta Margo: No
Heart Failure Evidence Based Beta Margo Not Indicated: LV Ejection Fraction > 40%
- Mineralocorticord Receptor Antagonist
Patient already on MRA: No
Heart Failure MRA Not Indicated: LV Ejection Fraction > 40%
- SGLT-2 Inhibitor
Patient already on SGLT-2 Inhibitor: No
Heart Failure SGLT-2 Inhibitor Not Indicated: LV Ejection Fraction >40%
- NYHA CHF Classification
NYHA CHF Classification Level: Class III - Symptoms w/ min exertion, interferes w/ nml daily activity
- ACC/AHA Stage
ACC/AHA Stage: Stage C: Symptomatic Heart Failure
[2023-08-31 11:55] VITALS: BP 107/66
[2023-08-31 11:56] LABS: Glucose - Point of Care 214 mg/dl (70-99)
--- NOTE | 2023-08-31 12:42 | W.DS.TRANS ---
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
-
Discharge Instructions:
Sleep Apnea Risk Intermediate
Discharge Diagnosis/Procedures Acute CHF.
Diet 2 Gram Sodium,Diabetic, Carb Controlled
Blood Work BMP and proBNP in 1 week
Instructions: *DCA Heart Failure Instructions
Stand-Alone Forms:
Changes to Home Medications: Yes
Discharge Medications:
DC Medications w/original date entered in [employer]
aspirin 81 mg tablet,delayed release 81 mg PO DAILY Blood clot prevention/tx ##0 03/12/15
valsartan 40 mg tablet 40 mg PO DAILY Blood pressure 03/12/15
red yeast rice 600 mg tablet 1,200 mg PO DAILY Supplement 11/13/15
cholecalciferol (vitamin D3) 25 mcg (1,000 unit) tablet 1,000 units PO DAILY Supplement 08/20/20
acyclovir 400 mg tablet 400 mg PO BID Infection 10/22/22
coQ10 (ubiquinol) 100 mg capsule 100 mg PO DAILY Supplement 10/22/22
cyanocobalamin (vitamin B-12) 1,000 mcg tablet 1,000 mcg PO DAILY Supplement 10/22/22
denosumab 120 mg/1.7 mL (70 mg/mL) subcutaneous solution (Xgeva) 120 mg SC [id number] Cancer 10/22/22
dexamethasone 4 mg tablet 20 mg PO USEASDIRECTD Anti-inflammatory 10/22/22
loratadine 10 mg tablet (Claritin) 10 mg PO DAILY PRN allergies 10/22/22
tamsulosin 0.4 mg capsule (Flomax) 0.4 mg PO QPM Urinary issue 10/22/22
zolpidem 5 mg tablet (Ambien) 5 mg PO HS PRN insomnia 01/15/23
Kyprolis 0 mg IV USEASDIRECTD Cancer 08/30/23
glipizide 5 mg tablet, extended release 24 hr 5 mg PO DAILY Diabetes 08/30/23
metformin 750 mg tablet,extended release 24 hr 1,500 mg PO BID Diabetes 08/30/23
pomalidomide 2 mg capsule (Pomalyst) 2 mg PO USEASDIRECTD Cancer 08/30/23
sildenafil 100 mg tablet 100 mg PO DAILY PRN ed 08/30/23
furosemide 80 mg tablet (Lasix) 80 mg PO DAILY #60 tabs 08/31/23
Home Medication Changes
Increased Lasix dose
Pending Results: No
[2023-08-31] MEDS: GLUCOTROL XL (EXTENDED RELEASE) 5 MG PO (12:55)
[2023-08-31] MEDS: GLUCOPHAGE XR EXTENDED RELEASE 1500 MG PO (12:55)
[2023-08-31] MEDS: DIOVAN 40 MG PO (12:55)
[2023-08-31] MEDS: ZOVIRAX 400 MG PO (12:56)
--- NOTE | 2023-08-31 13:15 | SUR.OPER ---
Patient ready for discharge. Removed IV. Went over discharge instructions with patient and patient's . Wheeled out for discharge.
--- NOTE | 2023-08-31 13:37 | W.PN.HOSP.TC ---
Today's Communication/Plan
-
- Discharge today.
Assessment / Plan
Assessment / Plan
Assessment:
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
June which has become significantly noticeable over the past few days.� Shortness of breath with exertion.� He denies any cough or hemoptysis or fevers or chills.� He has also noticed increased heart rate over the past few days.� Denies any
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 Ginger Lal and lost 11 pounds at that time.
He was seen by� Ginger and had echocardiogram today which showed enlarged RV and sent to emergency room to evaluate for pulmonary embolism. Patient has history of multiple myeloma followed at [facility].� He is currently on treatment with pomalidomide and
Xgeva infusions which he has been on for a long time. He is no longer on treatment for prostate cancer. Denies smoking or alcohol use.
Workup in emergency department included CT chest which was negative for pulmonary embolism.� There was numerous pulmonary nodules and diffuse fatty liver infiltration.��proBNP was 7040 up from 545 in June.� Troponin was undetectable.� EKG
demonstrated sinus tachycardia at 121 bpm with right bundle branch block and PVCs. Patient was provided IV Lasix 40 mg.
Impression:
* Acute on chronic heart failure with preserved EF
Plan:
Acute on chronic heart failure with preserved EF
- CT PE does not show evidence of pulmonary embolism
- Echo shows EF of 55 to 60%, increased RV pressure with moderately enlarged right ventricle with moderate right ventricular dysfunction
- proBNP 7040 up from 545 in June 2023.
- Received 40 IV Lasix
- Improved today; patient has good response and is down at least 3 to 4 pounds overnight if not more.
- Cleared for discharge from a cardiology stand-point.
- MM meds possibly contributory; would consider medication change per oncology outpatient.
- Follow-up with cardiology outpatient.
Chronic pulmonary nodules within upper/mid lungs/right upper lobe apical cavitary nodule
- Prior PET scan did not show increased uptake on prior PET scan from 2021
- Thought to not related to malignancy by oncology
- Outpatient follow-up with pulmonary
Multiple myeloma
- On pomalidomide
- On Xgeva with dexamethasone
- Continue prophylactic acyclovir
- Outpatient oncology follow-up to discuss medication changes
Chronic anemia
- Hemoglobin stable
Chronic leukopenia
- Likely secondary to pomalidomide
Prostate cancer status post prostatectomy/radiation
- Continue tamsulosin
Type 2 diabetes
- Continue glipizide, metformin
Essential hypertension
- Continue valsartan
- Continue prophylactic aspirin
DVT prophylaxis
- Heparin SC.
Code status
- Full.
Anticipated Discharge: Today
Subjective/Interval History
-
Date of Service: August 31, 2023
Objective Data
-
Labs:
Laboratory Results
08/31/23
07:13
WBC 4.2 L
Hgb 10.3 L
Hct 31.1 L
Plt Count 149
Sodium 135
Potassium 4.5
Chloride 110 H
Carbon Dioxide 18 L
BUN 40 H
Creatinine 1.2
Glucose 187 H
Calcium 8.1 L
Total Bilirubin 1.5 H
AST 13 L
ALT 20
Alkaline Phosphatase 67
Vital Signs:
Vital Signs
Temp Pulse Resp BP Pulse Ox
97.8 F 93 18 107/66 98
08/31/23 11:55 08/31/23 11:55 08/31/23 11:55 08/31/23 11:55 08/31/23 11:55
I&O
02/08/31/23 09/01/23
06:59 06:59 06:59
Intake Total 240 / 240
Balance 240 / 240
Review of Systems
-
History Source: Patient
Constitutional: Reports No Symptoms
Respiratory: Reports No Symptoms
Cardiac: Reports No Symptoms
Abdomen/GI: Reports No Symptoms
Genitourinary: Reports No Symptoms
Musculoskeletal: Reports No Symptoms
Skin: Reports No Symptoms
Neuro: Reports No Symptoms
Endocrine: Reports No Symptoms
Physical Exam
-
General: No Apparent Distress and Comfortable
HEENT: Normocephalic, Atraumatic, Moist Mucous Membranes and Anicteric
Respiratory: Clear to Auscultation
Cardiac: Regular Rhythm and S1/S2
GI: Soft, Nontender, Nondistended, Normal Bowel Sounds and No Hepatosplenomegaly
Genito-urinary: No Costovertebral Tender
Musculoskeletal: No Clubbing, No Cyanosis and No Edema
Neuro: Awake, Alert, Oriented and No Motor Deficits
Hematologic / Lymphatic: No Lymphadenopathy
Psych: Calm
--- NOTE | 2023-08-31 13:38 | CM ---
CM following re: d/c planning
Chart reviewed
CM met with the patient and his spouse at bedside; IA completed
Pt is here as observation, [facility] letter reviewed and copy provided
Pt states that he and his spouse reside in a [place] with 2[facility]
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
Pt has no previous SNF hx, has had VN provided by [facility] 3 yrs or so ago and the only DME owned is a r/w
Pt has prescription coverage and rx's are filled at [facility]
Pt PCP-Ministerio Hunter
Pt has been cleared medically stable for d/c and has no needs
PLAN; d/c home no needs
== END 2023-08-31 13:23 | disposition home or self-care (01) ==
LOC: 4 EAST ACU 21:15
PROVIDERS: Emergency Medicine; ADMITTING PHYSICIAN Hospitalist; ATTENDING PHYSICIAN Internal Medicine; CONSULT PHYSICIAN Internal Medicine Cardiovascular Disease; EMERGENCY PHYSICIAN Student in an Organized Health Care Education/Training Program; FAMILY PHYSICIAN Family Medicine
DX: I11.0 Hypertensive heart disease with heart failure (principal); I50.33 Acute on chronic diastolic (congestive) heart failure; C90.00 Multiple myeloma not having achieved remission; D64.9 Anemia, unspecified; R91.8 Other nonspecific abnormal finding of lung field; D72.819 Decreased white blood cell count, unspecified; E11.9 Type 2 diabetes mellitus without complications; K76.0 Fatty (change of) liver, not elsewhere classified; I45.10 Unspecified right bundle-branch block; I35.0 Nonrheumatic aortic (valve) stenosis; M51.36 Other intervertebral disc degeneration, lumbar region; Z11.52 Encounter for screening for COVID-19; Z79.61 Long term (current) use of immunomodulator; Z79.624 Long term (current) use of inhibitors of nucleotide synthesis; Z79.82 Long term (current) use of aspirin; Z79.84 Long term (current) use of oral hypoglycemic drugs; Z79.899 Other long term (current) drug therapy; Z85.46 Personal history of malignant neoplasm of prostate; Z87.442 Personal history of urinary calculi; Z90.79 Acquired absence of other genital organ(s); Z92.3 Personal history of irradiation
CPT/HCPCS: 71275; 80053; 82962; 83880; 84484; 85025; 85610; 85730; 87502; 87811; 93005; 93306; 93356; 96374; 99285; G0378; Q9967

== ENCOUNTER → 2023-09-03 09:22 | Outpatient (REF) | payer MEDICARE, OTHER, SELFPAY ==
[2023-09-03 10:06] LABS: % Basophils 0.5 % (0-2); % Eosinophils 1.3 % (0-6); % Immature Granulocytes 1.8 % (0-0.5); % Lymphocytes 24.2 % (20.5-51.1); % Monocytes 8.1 % (1.7-9.3); % Neutrophils 64.1 % (42.2-75.2); Absolute Eosinophils 0.1 10^3/uL (0-0.7); Absolute Immature Granulocytes 0.1 10^3/uL (0-0.05); Absolute Lymphocytes 0.9 10^3/uL (1.2-3.4); Absolute Monocytes 0.3 10^3/uL (0.1-0.6); Absolute Neutrophils 2.5 10^3/uL (1.4-6.5); Hematocrit 32.2 % (39.0-52.0); Hemoglobin 10.4 g/dL (13.0-18.0); Mean Corp Hgb Conc. 32.3 g/dL (33.0-37.0); Mean Corpuscular Hgb 32.4 pg (27.0-31.0); Mean Corpuscular Volume 100.3 fL (80.0-94.0); Mean Platelet Volume 11.2 fL (7.4-10.4); Nucleated Red Blood Cells % 0.5 % (-); Platelet Count 191 10^3/uL (130-400); Red Blood Cell Count 3.21 10^6/uL (4.70-6.10); Red Cell Dist. Width 16.3 % (11.5-14.5); White Blood Cell Count 3.9 10^3/uL (4.8-10.8)
[2023-09-03 11:32] LABS: ALT (SGPT) 17 U/L (0-50); AST (SGOT) 16 U/L (17-59); Albumin 3.2 g/dl (3.5-5.0); Alkaline Phosphatase 68 U/L (38-126); Blood Urea Nitrogen 34 mg/dl (9-20); Calcium 7.9 mg/dl (8.4-10.2); Carbon Dioxide 20 mmol/L (22-30); Chloride 109 mmol/L (98-107); Glucose 167 mg/dl (70-99); Potassium 4.9 mmol/L (3.5-5.1); Sodium 135 mmol/L (135-145); eGFR 57.65
[2023-09-03 11:37] LABS: NT-proBNP 1430 pg/ml
[2023-09-06 04:22] LABS: Albumin 2.67 g/dL (3.75-5.01); Alpha 1 Globulin 0.36 g/dL (0.19-0.46); Alpha 2 Globulin 0.75 g/dL (0.48-1.05); Free Kappa Light Chains,Quant 4590.04 mg/L (3.30-19.40); Free Lambda Light Chains,Quant 3.06 mg/L (5.71-26.30); IgA 4 mg/dL (68-408); IgG 3692 mg/dL (768-1632); IgM <10 mg/dL (35-263); Immunofixation Electrophoresis IFE Done; Kappa/Lambda Fr Light Ratio 1500.01 (0.26-1.65); Monoclonal Protein 3.74 g/dL (<=0.00); Total Protein-Electrophoresis 8.2 g/dL (6.3-8.2)
== END ==
LOC: REG 09:22
PROVIDERS: ATTENDING PHYSICIAN Internal Medicine Hematology & Oncology; FAMILY PHYSICIAN Internal Medicine Cardiovascular Disease; OTHER PHYSICIAN Internal Medicine Hematology & Oncology; REFERRING PHYSICIAN Family Medicine
DX: C61 Malignant neoplasm of prostate (principal); E53.9 Vitamin B deficiency, unspecified; D64.9 Anemia, unspecified; C90.00 Multiple myeloma not having achieved remission; C79.51 Secondary malignant neoplasm of bone; D64.81 Anemia due to antineoplastic chemotherapy; N39.0 Urinary tract infection, site not specified; I50.30 Unspecified diastolic (congestive) heart failure
CPT/HCPCS: 36415; 80053; 82784; 83521; 83880; 84155; 84165; 85025; 86334

== ENCOUNTER → 2023-09-05 12:50 | Outpatient (REF) | payer MEDICARE, OTHER, SELFPAY | LOC: RAD 12:50 | PROVIDERS: ATTENDING PHYSICIAN Internal Medicine Cardiovascular Disease; FAMILY PHYSICIAN Family Medicine; OTHER PHYSICIAN Internal Medicine Hematology & Oncology; REFERRING PHYSICIAN Internal Medicine Hematology & Oncology | DX: I26.99 Other pulmonary embolism without acute cor pulmonale (principal) | CPT/HCPCS: 71046; 78582; A9540; A9567 ==

== ENCOUNTER 2023-09-09 17:00 | Inpatient (IN) | payer MEDICARE, OTHER, SELFPAY ==
[2023-09-09] VITALS (9 sets, daily range): BP systolic 90–118; BP diastolic 59–71; BMI 31.7; BMI 31.4
--- NOTE | 2023-09-09 12:06 | ED.GENMED ---
History of Present Illness
<ЕЛЕНА Manuel - Last Filed: 09/09/23 15:24>
General
Chief Complaint: Musculo-Skeletal Complaint
Source: patient and spouse
Exam Limitations: none
Time Seen by Provider: 09/09/23 11:33
Nursing documentation reviewed up to this point in time: agreed with
Travel History
Have you had any contact with someone who has COVID-19?: No
Do you have any symptoms of coronavirus? Fever > 100 degrees, chills, cough, shortness of breath, sore throat, loss of taste or smell, muscle aches, or headache?: No
History of Present Illness
History of Present Illness:
73-year-old male past medical history multiple myeloma CHF prostate cancer prostatectomy hypertension, type 2 diabetes, right bundle branch block, nephrolithiasis, sciatica, diverticulitis presents to the ER for evaluation. Patient complains of
pain to the right abdominal/rib area since night. worse w/ laying on side. He denies any injury on Sunday he took Aleve which seemed to improve symptoms but pain continues. He feels a little shortness of breath is he is definitely
short of breath. He is followed by Dr.REnee Lion for CHF. CHF was diagnosed in June. Patient was recently admitted August 30 and discharged August 31 for congestive heart failure with preserved ejection fraction. During that visit
he had a CAT scan which was negative for PE and had an echo which showed an EF of 50-60% with RV pressure and volume overload. Patient was given Lasix at that time. He reports cardiology recently increased his Lasix from 40 mg a day to 120 mg for
2 days and now he is at 80 mg a day.
Cardiology also ordered a VQ scan which patient had 09/05 which was negative low prob for PE
Past History
<ЕЛЕНА Manuel - Last Filed: 09/09/23 15:24>
Past History
ED Past Medical History: Cancer, HTN and Other (renal stones, diveticulitis, hx of urosepsis)
ED Past Surgical History: None
Social History
Tobacco: Non-smoker
Personal:
Living: with family
Employment: Employed
Review of Systems
<ЕЛЕНА aMnuel - Last Filed: 09/09/23 15:24>
Review of Systems
Allergies reviewed?: Yes
All Other Systems: ROS reviewed and negative except as documented in HPI and ROS
Constitutional: Reports no symptoms; Denies fever, fatigue or chills
EENT: Reports no symptoms
Respiratory: Reports trouble breathing and other (pain to right rib area )
Cardiac: Denies chest pain
ABD/GI: Reports other (right upper abd pain ); Denies nausea or vomiting
: Reports no symptoms
Musculoskeletal: Reports no symptoms and other ( no l/e swelling )
Skin: Reports no symptoms
Neurological: Reports no symptoms
Psychiatric: Reports no symptoms
Phy Exam
<ЕЛЕНА Manuel - Last Filed: 09/09/23 15:24>
General Physical Exam
General Presentation: no apparent distress
General age: appears stated age
General Skin: warm and dry
General Habitus: normal
General Mental: alert
General Hydration: appears well hydrated
Cardiovascular Exam
Cardiovascular Exam: tachycardia
Pulmonary Exam
Pulmonary Exam: no respiratory distress and other (crackles b/l bases )
Gastrointestinal Exam
Gastrointestinal Exam: soft and other (tender ruq )
Neurological Exam
Neurological Exam: alert and oriented x3
[place] Coma Scale
Eye Opening: Spontaneous
Verbal Response: Oriented
Motor Response: Obeys Commands
GCS Total Score: 15
Musculoskeletal Exam
Musculoskeletal Exam: full ROM
Skin Exam
Skin Exam: normal color and warm/dry
Psychiatric Exam
Psychiatric Exam: normal mood/affect
<Ken Cohn DO - Last Filed: 09/09/23 16:02>
[place] Coma Scale
GCS Total Score: 15
Course
<ЕЛЕНА Manuel - Last Filed: 09/09/23 15:24>
Orders/Labs/Results
Orders:
Orders
09/09/23 12:27
Complete Blood Count/With Diff Routine
Comprehensive Metabolic Panel Urgent
Lipase Urgent
Pro-BNP [NT-proBNP] Urgent
09/09/23 12:29
Chest [CR Chest - 2 Views ] Urgent
Comment:
Reason For Exam: sob right rib pain
US Abdomen Complete/Upper Urgent
Comment:
Reason For Exam: ruq pain
09/09/23 14:19
UA Reflex to Culture [Urinalysis Reflex To Culture] Urgent
Date Specimen was Collected: 09/09/23
Time Specimen was Collected: 14:05
Urine Microscopic Reflex Cult Urgent
09/09/23 14:42
Add On- LAB Urgent
Tests Added?: lipase
09/09/23 15:17
CT Abd/pel Without Iv Or Oral Urgent
Comment:
Reason For Exam: ruq pain /tender
Abnormal Lab Results
09/09/23 09/09/23
12:27 14:19
WBC 4.7 L 10^3/uL
(4.8-10.8)
RBC 2.92 L 10^6/uL
(4.70-6.10)
Hgb 9.6 L g/dL
(13.0-18.0)
Hct 29.6 L %
(39.0-52.0)
MCV 101.4 H fL
(80.0-94.0)
MCH 32.9 H pg
(27.0-31.0)
MCHC 32.4 L g/dL
(33.0-37.0)
RDW 15.8 H %
(11.5-14.5)
Absolute Lymphs (auto) 0.7 L 10^3/uL
(1.2-3.4)
Immature Gran % 0.6 H %
(0-0.5)
Lymphocytes % 14.5 L %
(20.5-51.1)
Monocytes % 9.4 H %
(1.7-9.3)
Sodium 133 L mmol/L
(135-145)
Potassium 5.3 H mmol/L
(3.5-5.1)
BUN 31 H mg/dl
(9-20)
Creatinine 1.9 H mg/dL
(0.7-1.3)
Glucose 171 H mg/dl
(70-99)
Calcium 7.7 L mg/dl
(8.4-10.2)
Total Bilirubin 2.0 H mg/dl
(0.2-1.3)
AST 16 L U/L
(17-59)
Total Protein 8.4 H g/dl
(6.3-8.2)
Albumin 3.2 L g/dl
(3.5-5.0)
Ur Occult Blood Reflex Trace A
(Negative)
Urine Bacteria (Reflex) Few A
(Negative)
Urine Albumin (Reflex) 2+ A
(Neg - Trace)
09/09/23 12:27
09/09/23 12:27
Vital Signs
Initial and Last Documented VS:
Initial Vital Signs
Temp Pulse Resp BP Pulse Ox
98.5 F 102 16 118/63 98
09/09/23 10:19 09/09/23 10:19 09/09/23 10:19 09/09/23 10:19 09/09/23 10:19
Last Documented Vital Signs
Temp Pulse Resp BP Pulse Ox
98.3 F 99 29 107/70 93
09/09/23 14:00 09/09/23 12:45 09/09/23 12:45 09/09/23 12:13 09/09/23 12:45
Leather Carver consulted with Physician
Leather Carver consulted with physician?: Yes
Name of Physician Consulted: Harpreet
<Ken Cohn, DO - Last Filed: 09/09/23 16:02>
Orders/Labs/Results
Orders:
Orders
09/09/23 12:27
Complete Blood Count/With Diff Routine
Comprehensive Metabolic Panel Urgent
Lipase Urgent
Pro-BNP [NT-proBNP] Urgent
09/09/23 12:29
Chest [CR Chest - 2 Views ] Urgent
Comment:
Reason For Exam: sob right rib pain
US Abdomen Complete/Upper Urgent
Comment:
Reason For Exam: ruq pain
09/09/23 14:19
UA Reflex to Culture [Urinalysis Reflex To Culture] Urgent
Date Specimen was Collected: 09/09/23
Time Specimen was Collected: 14:05
Urine Microscopic Reflex Cult Urgent
09/09/23 14:42
Add On- LAB Urgent
Tests Added?: lipase
09/09/23 15:17
CT Abd/pel Without Iv Or Oral Urgent
Comment:
Reason For Exam: ruq pain /tender
Abnormal Lab Results
09/09/23 09/09/23
12:27 14:19
WBC 4.7 L 10^3/uL
(4.8-10.8)
RBC 2.92 L 10^6/uL
(4.70-6.10)
Hgb 9.6 L g/dL
(13.0-18.0)
Hct 29.6 L %
(39.0-52.0)
MCV 101.4 H fL
(80.0-94.0)
MCH 32.9 H pg
(27.0-31.0)
MCHC 32.4 L g/dL
(33.0-37.0)
RDW 15.8 H %
(11.5-14.5)
Absolute Lymphs (auto) 0.7 L 10^3/uL
(1.2-3.4)
Immature Gran % 0.6 H %
(0-0.5)
Lymphocytes % 14.5 L %
(20.5-51.1)
Monocytes % 9.4 H %
(1.7-9.3)
Sodium 133 L mmol/L
(135-145)
Potassium 5.3 H mmol/L
(3.5-5.1)
BUN 31 H mg/dl
(9-20)
Creatinine 1.9 H mg/dL
(0.7-1.3)
Glucose 171 H mg/dl
(70-99)
Calcium 7.7 L mg/dl
(8.4-10.2)
Total Bilirubin 2.0 H mg/dl
(0.2-1.3)
AST 16 L U/L
(17-59)
Total Protein 8.4 H g/dl
(6.3-8.2)
Albumin 3.2 L g/dl
(3.5-5.0)
Ur Occult Blood Reflex Trace A
(Negative)
Urine Bacteria (Reflex) Few A
(Negative)
Urine Albumin (Reflex) 2+ A
(Neg - Trace)
09/09/23 12:27
09/09/23 12:27
Vital Signs
Initial and Last Documented VS:
Initial Vital Signs
Temp Pulse Resp BP Pulse Ox
98.5 F 102 16 118/63 98
09/09/23 10:19 09/09/23 10:19 09/09/23 10:19 09/09/23 10:19 09/09/23 10:19
Last Documented Vital Signs
Temp Pulse Resp BP Pulse Ox
98.3 F 99 29 107/70 93
09/09/23 14:00 09/09/23 12:45 09/09/23 12:45 09/09/23 12:13 09/09/23 12:45
<ЕЛЕНА Manuel - Last Filed: 09/09/23 15:24>
MDM/Problems Addressed
Differential Diagnosis Includes:
not limited to: Muscular pain PE less likely, biliary colic renal colic
MDM/Problems Addressed:
73-year-old male with documented has history of CHF multiple myeloma hypertension recently admitted for CHF August 30 presents back to the ER with complaints of right lateral rib/side pain and shortness of breath. While here patient had full work
up had CT scan which was negative for PE and since then had V/Q which was low probability. Patient had his Lasix increased from 40-1 20 and now is an 80 mg. This pain started 3 days ago and has persisted. He does report however it is worse with
moving /laying on his right side. reports he is definitely short of breath. He denies any nausea vomiting fever chills. On exam he is awake alert not hypoxic crackles at bases. On exam he does seem mildly tender in the right upper quadrant
his white count is 4.7 his hemoglobin is 9.6 slightly low from 10.4 September 03 however at baseline. Patient does however have increased BUN of 31 creatinine 1.9 which is increased from prior admission likely from Lasix being increased . BUN 31
creatinine 1.9. Potassium however is minimally elevated at 5.3. Bilirubin elevated 2.0 which is increased from 09/03 (1.0). Cardiac BNP elevated 5498 was 1430 on 09/03. Ultrasound negative for biliary ductal dilatation normal gallbladder.
Patient evaluate ED physician will order plain dry scan of abdomen. Patient will require admission for hypoxia renal insufficiency discomfort fluid overload. Patient mated to Dr. Chester. CT pending.
<ЕЛЕНА Manuel - Last Filed: 09/09/23 15:24>
*Critical Care Note
Total Time (30-74mins, 75-104mins- exclusive of procedures): Not Applicable
Data Reviewed
Review of Other/Old Records Reveals: Other (Lung VQ scan done 09/05: Low probability of PE)
<Ken Cohn DO - Last Filed: 09/09/23 16:02>
*Radiology
Radiology exam reviewed: radiology read reviewed
*Pulse Oximetry
Patient hypoxic: yes
ED Attending Note
<ЕЛЕНА Manuel - Last Filed: 09/09/23 15:24>
-
Portions of this chart may have been created with voice recognition software.� Occasional wrong word or��sound alike� substitutions may have occurred due to the inherent limitations of voice recognition software.
<Ken Cohn DO - Last Filed: 09/09/23 16:02>
ED Attending Note
Patient seen and examined by attending physician: Yes
I performed the substantive portion of visit, reviewed & personally made and approve the management plan that is documented in note by myself or JIMI.: Yes
ED Attending Note:
73-year-old male presents with right lateral sore chest wall discomfort. Also with some generalized abdominal discomfort. Has been laying on the right side and wondered if it was musculoskeletal. He is currently being treated for multilobar lung
lobe with multiple medications. He is planned for right heart cath later this week. He does admit he has been short of breath with exertion. He feels like his abdomen is little bit distended. Exam: Awake and alert, mild crackles at bilateral
bases, heart regular, abdomen with mild diffuse tenderness. No rash. Assessment and plan: Labs reviewed. BNP is elevated again. Creatinine also elevated. Could be multifactorial. Likely will need right heart cath. Check CT abdomen without
contrast and. Case was discussed with Dr. Naqvi
Discharge Plan
Departure
Patient Disposition: Admit
Date of Disposition: 09/09/23
Time of Disposition: 15:23
Admit to: Telemetry
Admit to doctor: hospitalist
Presentation/result/management discussed w/ accepting MD/DO: Hospitalist
Patient with high blood pressure during this ER visit?: No
Condition: Fair
Covid-19: Not Applicable
Discharge Problem:
Acute dyspnea, hypoxia, renal insufficiency, Abdominal pain
Prescriptions:
No Action
aspirin 81 MG tablet,delayed release (DR/EC)
81 mg PO DAILY Qty: 0
valsartan 40 MG tablet
40 mg PO DAILY
red yeast rice 600 MG tablet
1,200 mg PO DAILY
cholecalciferol (vitamin D3) 1,000 UNITS tablet
1,000 units PO DAILY
cyanocobalamin (vitamin B-12) 1,000 mcg Tablet
1,000 mcg PO DAILY
acyclovir 400 mg Tablet
400 mg PO BID
tamsulosin [Flomax] 0.4 mg Capsule
0.4 mg PO QPM
dexamethasone 4 mg tablet
20 mg PO USEASDIRECTD
Patient Comments:
10/22/22- patients take with he gets valcade infuison
Rx Instructions:
Take once weekly on Mon/Tu for 3 weeks, 1 week off
loratadine [Claritin] 10 mg Tablet
10 mg PO DAILY PRN (Reason: allergies)
Xgeva 120 mg/1.7 mL (70 mg/mL) Solution
120 mg SC [id number]
coQ10 (ubiquinol) 100 mg Capsule
100 mg PO DAILY
zolpidem [Ambien] 5 mg Tablet
5 mg PO HS PRN (Reason: insomnia)
Patient Comments:
08/30/2023: last filled 10/16/23, 30 tabs for 30 days from [facility]
glipizide 5 mg tablet extended release 24hr
5 mg PO DAILY
sildenafil 100 mg tablet
100 mg PO DAILY PRN (Reason: ed)
metformin 750 mg tablet extended release 24 hr
1,500 mg PO BID
Pomalyst 2 mg capsule
2 mg PO USEASDIRECTD
Patient Comments:
08/30/2023: Pt just started cycle on Sunday (08/27/23)
Rx Instructions:
Take 1 tab daily for 21 days, 7 days off.
Kyprolis
0 mg IV USEASDIRECTD
Rx Instructions:
Once weekly for 3 weeks, 1 week off
furosemide [Lasix] 80 mg tablet
80 mg PO DAILY Qty: 60 0RF
Referrals:
Eloy Hunter MD [Family Provider] -
Interventions
Interventions:
*Risk Screen - Suicide Last Done: 09/09/23 11:46
*General Assessment Last Done: 09/09/23 11:46
*Neglect/Abuse Screening Last Done: 09/09/23 11:46
ED- Fall Risk Assessment Last Done: 09/09/23 12:43
*ED COVID-19 Vaccine History Last Done: 09/09/23 11:46
ED-Musculoskeletal Assessment Last Done: 09/09/23 12:43
[2023-09-09 12:34] LABS: % Basophils 0.2 % (0-2); % Eosinophils 0.4 % (0-6); % Immature Granulocytes 0.6 % (0-0.5); % Lymphocytes 14.5 % (20.5-51.1); % Monocytes 9.4 % (1.7-9.3); % Neutrophils 74.9 % (42.2-75.2); Absolute Lymphocytes 0.7 10^3/uL (1.2-3.4); Absolute Monocytes 0.4 10^3/uL (0.1-0.6); Absolute Neutrophils 3.5 10^3/uL (1.4-6.5); Hematocrit 29.6 % (39.0-52.0); Hemoglobin 9.6 g/dL (13.0-18.0); Mean Corp Hgb Conc. 32.4 g/dL (33.0-37.0); Mean Corpuscular Hgb 32.9 pg (27.0-31.0); Mean Corpuscular Volume 101.4 fL (80.0-94.0); Mean Platelet Volume 10.2 fL (7.4-10.4); Nucleated Red Blood Cells % 0 % (-); Platelet Count 248 10^3/uL (130-400); Red Blood Cell Count 2.92 10^6/uL (4.70-6.10); Red Cell Dist. Width 15.8 % (11.5-14.5); White Blood Cell Count 4.7 10^3/uL (4.8-10.8)
[2023-09-09 12:50] LABS: ALT (SGPT) 24 U/L (0-50); AST (SGOT) 16 U/L (17-59); Albumin 3.2 g/dl (3.5-5.0); Alkaline Phosphatase 68 U/L (38-126); Blood Urea Nitrogen 31 mg/dl (9-20); Calcium 7.7 mg/dl (8.4-10.2); Carbon Dioxide 23 mmol/L (22-30); Chloride 107 mmol/L (98-107); Estimated Creatinine Clearance 37 ml/min; Glucose 171 mg/dl (70-99); Potassium 5.3 mmol/L (3.5-5.1); Sodium 133 mmol/L (135-145); Total Protein 8.4 g/dl (6.3-8.2); eGFR 36.56
[2023-09-09 12:57] LABS: NT-proBNP 5490 pg/ml
[2023-09-09 14:32] LABS: Urine Albumin 2+ (Neg - Trace); Urine Bilirubin Negative (Negative); Urine Character Slightly Cloudy (Clear); Urine Color Yellow; Urine Glucose Negative (Negative); Urine Ketone Negative (Negative); Urine Leukocyte Negative (Negative); Urine Nitrite Negative (Negative); Urine Occult Blood Trace (Negative); Urine Specific Gravity 1.015 (<1.030); Urine Urobilinogen Negative (Neg - 1+)
[2023-09-09 14:50] LABS: Urine Amorphous Seen; Urine Squamous Cell 0-2 /LPF (Few)
[2023-09-09 14:51] LABS: Urine Red Blood Cell 0-2 /HPF (0-2); Urine White Cell 0-2 /HPF (0-5)
[2023-09-09 14:53] LABS: Glucose - Point of Care 77 mg/dl (70-99)
[2023-09-09 14:55] LABS: Urine Bacteria Few (Negative)
[2023-09-09 15:46] LABS: Lipase 28 U/L (23-300)
--- NOTE | 2023-09-09 16:04 | HPS.HSE ---
Family Physician
-
Family Physician: Eloy Hunter
Chief Complaint
-
Right upper quadrant pain
History of Present Illness
Patient is a 73-year-old male with a history of multiple myeloma receiving Krypolis and Pomalyst along with history of prostate cancer status post surgery and radiation therapy, diastolic congestive heart failure, type 2 diabetes mellitus who
presented with right upper abdomen and lower rib pain. Initially patient thought this was muscular. He describes it as achy. He does states that the pain is present with movement. He denies fever, chills, lightheadedness, nausea, vomiting,
constipation, diarrhea, shortness of breath. Family does admit that his abdomen is distended. He also admits to nocturia.
Patient's weight fluctuates between 200-203 pounds. He has been on higher dose Lasix given to him by his site acquisition specialist in preparation for his right heart cath this coming . As there is consideration for pulmonary hypertension. Patient's
workup in the emergency department finds him to have an unremarkable ultrasound, creatinine of almost 2, pulse ox of 92% on room air, with pro BNP of 5400. Patient is being admitted
Medical History
Past Medical History
Past Medical History: Reports Other
Additional Past Medical History:
Multiple myeloma
Prostate cancer
Type 2 diabetes mellitus
B12 deficiency
Diastolic congestive heart failure
Essential hypertension
Past Surgical History: Reports Other
Additional Past Surgical History:
Prostate cancer surgery
Stem cell harvest 2021
Social History
Tobacco: Former Smoker (Quit 40 years ago)
Alcohol: Occasional
Drug: None
Personal:
Living: With Family
Employment: Retired
Family History
Family History: Not pertinent
Allergies / Home Medications
Allergies reflects when Allergies were last updated in [facility].
Home Medications with original date entered in [facility]
Allergy/Medication List:
Allergies
Allergy/AdvReac Type Severity Reaction Status Date / Time
bacitracin Allergy redness Verified 09/09/23 10:19
[From Neosporin
([id number])]
neomycin Allergy redness Verified 09/09/23 10:19
[From Neosporin
([id number])]
polymyxin B Allergy redness Verified 09/09/23 10:19
[From Neosporin
([id number])]
Home Medications
Medications are not reconciled however I did review the list myself with the patient and these medications are correct
aspirin 81 mg tablet,delayed release 81 mg PO DAILY Blood clot prevention/tx ##0 03/12/15
valsartan 40 mg tablet 40 mg PO DAILY Blood pressure 03/12/15
red yeast rice 600 mg tablet 1,200 mg PO DAILY Supplement 11/13/15
cholecalciferol (vitamin D3) 25 mcg (1,000 unit) tablet 1,000 units PO DAILY Supplement 08/20/20
acyclovir 400 mg tablet 400 mg PO BID Infection 10/22/22
coQ10 (ubiquinol) 100 mg capsule 100 mg PO DAILY Supplement 10/22/22
cyanocobalamin (vitamin B-12) 1,000 mcg tablet 1,000 mcg PO DAILY Supplement 10/22/22
denosumab 120 mg/1.7 mL (70 mg/mL) subcutaneous solution (Xgeva) 120 mg SC [id number] Cancer 10/22/22
dexamethasone 4 mg tablet 20 mg PO USEASDIRECTD Anti-inflammatory 10/22/22
loratadine 10 mg tablet (Claritin) 10 mg PO DAILY PRN allergies 10/22/22
tamsulosin 0.4 mg capsule (Flomax) 0.4 mg PO QPM Urinary issue 10/22/22
zolpidem 5 mg tablet (Ambien) 5 mg PO HS PRN insomnia 01/15/23
glipizide 5 mg tablet, extended release 24 hr 5 mg PO DAILY Diabetes 08/30/23
metformin 750 mg tablet,extended release 24 hr 1,500 mg PO BID Diabetes 08/30/23
pomalidomide 2 mg capsule (Pomalyst) 2 mg PO USEASDIRECTD Cancer 08/30/23
sildenafil 100 mg tablet 100 mg PO DAILY PRN ed 08/30/23
furosemide 80 mg tablet (Lasix) 80 mg PO DAILY #60 tabs 08/31/23
Review of Systems
-
History Source: Patient and Family
A 12 point ROS was completed and negative except as noted: Yes
Constitutional: Denies Fever, Weight Gain, Weight Loss or Chills
EENT: Reports No Symptoms
Respiratory: Reports Trouble Breathing (Exertional); Denies Cough or Hemoptysis
Cardiac: Denies Chest Pain or Palpitations
Abdomen/GI: Reports Abdominal Pain (Right upper quadrant); Denies Nausea, Vomiting, Diarrhea or Constipated
: Reports No Symptoms
Musculoskeletal: Reports No Symptoms
Skin: Reports No Symptoms
Neurological: Reports No Symptoms; Denies Dizzy, Headache or Weakness
Endocrine: Reports No Symptoms
Hematologic/Lymphatic: Reports No Symptoms
Psych: Reports No Symptoms
Physical Exam
Vital Signs
Vital Signs
Temp Pulse Resp BP Pulse Ox
98.3 F 99 29 107/70 93
09/09/23 14:00 09/09/23 12:45 09/09/23 12:45 09/09/23 12:13 09/09/23 12:45
Physical Exam
General: Well Developed, Well Nourished and No Apparent Distress
HEENT: NormoCephalic, Anicteric and Atraumatic; No Oxygen
Respiratory: Crackles (At bases bilaterally otherwise clear); No Rhonchi
Cardiac: S1/S2, Regular Rhythm, Tachycardia, Murmur and Gallop
GI: Soft, Tender (Right upper quadrant), Distended and Organomegaly (Hepatomegaly by my exam); No Normal Bowel Sounds (Hyperactive bowel sounds)
Musculoskeletal: No Clubbing, No Cyanosis and No Edema
Skin: Warm and Dry
Neuro: Awake, Alert and Oriented
Psych: Calm
Laboratory Results
-
09/09/23 12:
09/09/23 12:
Laboratory Results
Total Bilirubin 2.0 mg/dl (0.2-1.3) H 09/09/23 12:
AST 16 U/L (17-59) L 09/09/23 12:
ALT 24 U/L (0-50) 09/09/23 12:
Alkaline Phosphatase 68 U/L (38-126) 09/09/23 12:
Lipase 28 U/L (23-300) 09/09/23 12:
Impression/Plan
-
Patient is a 73-year-old male
Right upper quadrant abdominal pain--normal LFTs, but still suspect possibly passive congestion as liver seems bigger on exam--abdominal ultrasound does not show ascites--suspect will improve with diuresis--however will hold for now
Acute borderline hypoxemic respiratory insufficiency--pulse ox 92% on room air--possibly due to passive congestion from acute congestive heart failure exacerbation, patient reportedly also has worsening pulmonary nodules--due to have appointment
with Dr. Marks tomorrow--will consult pulmonary
Possible acute diastolic congestive heart failure exacerbation--proBNP of 5490, suspect volume overload but hesitant to give diuretics as patient was on higher dose Lasix as an outpatient and creatinine now almost 2--also however, hesitant to give
IV fluids given heart failure--consult cardiology
Acute kidney injury--creatinine 1.9--likely combination of metformin, contrast from CAT scan to rule out PE (patient did not hold his metformin for 48 hours post CAT scan), valsartan, Lasix (patient has been on a higher than usual dose for the last
few days)--hold valsartan, metformin, Lasix--consult renal--think needs right heart cath sooner rather than later--urinalysis bland
Type 2 diabetes mellitus--hold metformin--Accu-Cheks with sliding scale coverage--continue glipizide
Multiple myeloma/history of prostate cancer--holding Kyprolis, Pomalyst, Xgeva--consult heme-onc--patient does take 20 mg of dexamethasone every Sunday--does not appear to need stress dose steroids at this point--watch for needs
Vitamin B12 deficiency--cont B12 supplementation
DVT prophylaxis
CODE STATUS--full code
--- NOTE | 2023-09-09 17:43 | W.CON.NEPH ---
Consultation
-
Date/Time Consultation Requested: 09/09/2023 5 PM
Date/Time Consultation Performed: 09/09/2023 6 PM
Requesting Provider: Dr. Bonilla
Performing Provider: Dr. Chiang
Reason for Consultation: Acute kidney injury
Medical History
-
Chief Complaint: Acute kidney injury
History of Present Illness:
Mr. Guidry is a 73-year-old gentleman with myeloma treated with Pomalyst as well as Krypolis. He has diabetes mellitus type 2 on oral medications. He was recently found to have right ventricular overload on echocardiogram. He was placed on Lasix
with escalating doses to try improve his volume status in preparation for a right heart cath this week. Recently his Lasix was increased from 40 mg daily to 80 mg daily. On he had developed right-sided rib and upper quadrant pain very
sensitive this did spontaneously improve though he still has some discomfort to palpation on that side. He came to the emergency room with his family given his above symptoms. He was found to have a creatinine 1.9 off his baseline rapidly acute
kidney injury with hyperkalemia and hyponatremia
Past Medical History
Multiple myeloma
Prostate cancer
Type 2 diabetes mellitus
B12 deficiency
Diastolic congestive heart failure
Essential hypertension
Prostate cancer surgery
Stem cell harvest 2021
Social History
Tobacco: Non-Smoker
Alcohol: Occasional
Family History
Family History: Not Pertinent
Allergies / Home Medications
Allergy/AdvReac Type Severity Reaction Status Date / Time
bacitracin Allergy redness Verified 09/09/23 10:19
[From Neosporin
([id number])]
neomycin Allergy redness Verified 09/09/23 10:19
[From Neosporin
([id number])]
polymyxin B Allergy redness Verified 09/09/23 10:19
[From Neosporin
([id number])]
Medication Instructions Recorded Confirmed Type
aspirin 81 mg tablet,delayed 81 mg PO DAILY Blood clot 03/12/15 09/09/23 History
release prevention/tx ##0
valsartan 40 mg tablet 40 mg PO DAILY Blood pressure 03/12/15 09/09/23 History
red yeast rice 600 mg tablet 1,200 mg PO DAILY Supplement 11/13/15 09/09/23 History
cholecalciferol (vitamin D3) 25 1,000 units PO DAILY Supplement 08/20/20 09/09/23 History
mcg (1,000 unit) tablet
acyclovir 400 mg tablet 400 mg PO BID Infection 10/22/22 09/09/23 History
coQ10 (ubiquinol) 100 mg capsule 100 mg PO DAILY Supplement 10/22/22 09/09/23 History
cyanocobalamin (vitamin B-12) 1,000 mcg PO DAILY Supplement 10/22/22 09/09/23 History
1,000 mcg tablet
denosumab 120 mg/1.7 mL (70 mg/mL) 120 mg SC [id number] Cancer 10/22/22 09/09/23 History
subcutaneous solution (Xgeva)
dexamethasone 4 mg tablet 20 mg PO UD Anti-inflammatory 10/22/22 09/09/23 History
loratadine 10 mg tablet (Claritin) 10 mg PO DAILY PRN allergies 10/22/22 09/09/23 History
tamsulosin 0.4 mg capsule (Flomax) 0.4 mg PO QPM Urinary issue 10/22/22 09/09/23 History
zolpidem 5 mg tablet (Ambien) 5 mg PO HS PRN insomnia 01/15/23 09/09/23 History
glipizide 5 mg tablet, extended 5 mg PO DAILY Diabetes 08/30/23 09/09/23 History
release 24 hr
metformin 750 mg tablet,extended 1,500 mg PO BID Diabetes 08/30/23 09/09/23 History
release 24 hr
pomalidomide 2 mg capsule 2 mg PO QPM Cancer 08/30/23 09/09/23 History
(Pomalyst)
sildenafil 100 mg tablet 100 mg PO DAILY PRN ed 08/30/23 09/09/23 History
furosemide 80 mg tablet (Lasix) 80 mg PO DAILY #60 tabs 08/31/23 09/09/23 Rx
Review of Systems
-
Right-sided abdominal pain. Dyspnea on exertion. No orthopnea. No change in oral intake. No diarrhea or constipation. No change in urine output. He denies edema. The remainder of the complete review of systems was negative
Physical Exam
Vital Signs
Vital Signs
Temp Pulse Resp BP Pulse Ox
98.3 F 103 28 108/61 92
09/09/23 14:00 09/09/23 15:45 09/09/23 15:45 09/09/23 16:00 09/09/23 15:45
Lab Results
WBC 4.7 10^3/uL (4.8-10.8) L 09/09/23 12:27
RBC 2.92 10^6/uL (4.70-6.10) L 09/09/23 12:27
Hgb 9.6 g/dL (13.0-18.0) L 09/09/23 12:27
Hct 29.6 % (39.0-52.0) L 09/09/23 12:27
Plt Count 248 10^3/uL (130-400) D 09/09/23 12:27
Sodium 133 mmol/L (135-145) L 09/09/23 12:27
Potassium 5.3 mmol/L (3.5-5.1) H 09/09/23 12:27
Chloride 107 mmol/L (98-107) 09/09/23 12:
Carbon Dioxide 23 mmol/L (22-30) 09/09/23 12:27
BUN 31 mg/dl (9-20) H 09/09/23 12:27
Creatinine 1.9 mg/dL (0.7-1.3) H 09/09/23 12:
eGFR 36.56 09/09/23 12:27
Glucose 171 mg/dl (70-99) H 09/09/23 12:27
Calcium 7.7 mg/dl (8.4-10.2) L 09/09/23 12:27
Jfu-O-Puvmpxjapij Pept 5490 pg/ml 09/09/23 12:27
Albumin 3.2 g/dl (3.5-5.0) L 09/09/23 12:
Physical Exam
General: AOx3
HEENT: PERRL, EOMI, Ear/Nose Intact, Hearing Normal, Oropharynx Clear/Moist, Neck Supple, Trachea Midline and No Thyromegaly
Respiratory: Clear
Cardiac: Regular Rate/Rhythm
Abdomen: Soft, Nondistended, Normal Bowel Sounds, No Hepatosplenomegaly and Other (Slightly tender to palpation in the right side)
Musculoskeletal: No Edema
Skin: No Rash and Normal Turgor
Psych: Mood/afflect pleasant and Insight/judgement good
Assessment/Plan
-
Assessment
Multiple myeloma on Krypolis and Pomalyst
Right ventricular overload on recent echocardiogram but with preserved ejection fraction
Diabetes mellitus type 2
Acute kidney injury
Hyperkalemia
Hyponatremia
Anemia
Right-sided abdominal pain
Plan
We will check a fractional increase of sodium. Clinically, he appears to be either euvolemic or slightly volume depleted. He has no resting shortness of breath or orthopnea. However he also has no orthostasis or lightheadedness.
Check orthostatic vital signs
There are plans for right heart catheterization this week
I would offer 500 cc of saline today
We will follow his basic metabolic panel along with you. If his potassium rises higher, Lokelma may be given
A bowel regimen is recommended
Data Reviewed
-
Radiology: Image Personally Visualized and interpreted (Chest x-ray on 09/08/2022 by my reading shows left eighth rib deformity elevated right hemidiaphragm atelectasis no edema)
CT Scan: Report Reviewed by me (CT scan on 09/09/2023 by my reading shows significant stool in the intestine)
Ultrasound: Report Reviewed by me (Ultrasound abdomen on 09/09/2023 shows liver cysts right kidney 12 cm left kidney 12.8 cm)
Medical Tests (Nuc Med, Echo etc): Report Reviewed by me (Echocardiogram on 08/30/2023 shows ejection fraction 55%, right ventricular overload)
Labs: Labs Reviewed by me
Old Records: Reviewed
[2023-09-09] MEDS: NSS 500 IV (18:09)
[2023-09-09 18:46] LABS: Urine Sodium 44 mmol/L (30-90)
[2023-09-09] MEDS: FLOMAX 0.400000000000000022 MG PO (18:49)
[2023-09-09] MEDS: ZOVIRAX 400 MG PO (19:34)
[2023-09-09] MEDS: LOVENOX 30 MG SC (19:34)
--- NOTE | 2023-09-09 21:28 | CON.CAR ---
Consultation
Consultation Request
Date/Time Consultation Requested: 09/09/23
Date/Time Consultation Performed: 09/09/23
Requesting Provider: Dr. Bonilla
Performing Provider: Dr. Montalvo
Reason for Consultation: Known to [facility] with plans for right heart catheterization this week fo
Medical History
-
Chief Complaint: Right rib pain
History of Present Illness:
I had the pleasure to meet Dasia Guidry in [id number] after he presented to [facility] ED with ongoing right rib/upper abdominal pain which started morning. Dasia denies recent trauma/falls/injury, forceful coughing and has no rash or prior
history of shingles. He describes pain as an constant ache worse with movement, touch or deep inspiration/cough. Denies chest pain or pressure. No fevers/chills. Denies nausea vomiting or recent GI illness. No diarrhea/melena or bright red
blood per rectum. No urinary complaints. No rash or ecchymosis. No recent travel or upper respiratory infections; denies recent COVID or flu. Workup reviewed with patient in detail including CT scan raising concern for right-sided colitis. CT
of the chest without acute abnormality or evidence of rib fracture/dislocation. He reports some shortness of breath but feels breathing is likely related to splinting because of rib pain. He took 1 Aleve yesterday with some improvement of pain but
overall avoids NSAIDs.
Cardiology consulted as patient is scheduled for a right heart catheterization for workup of pulmonary hypertension this week with Dr. Hodges. Dasia follows with Dr. Ginger Lal for RV dysfunction/heart failure with preserved ejection fraction
and pulmonary hypertension. He also has a history of mild aortic stenosis, hypertension, dyslipidemia on red yeast rice, CT imaging noting coronary atherosclerosis without history of [place], and aortic atherosclerosis without aneurysm and right bundle
branch block.. Additionally he has type 2 diabetes mellitus and fatty liver infiltration, prostate cancer status post prostatectomy, multiple myeloma followed by [facility], and a history of diverticulitis in 2016. He has no history of
thromboembolic disease with recent reassuring workup including CTA of the chest and VQ scan. He denies a history of sleep apnea. He has an upcoming new appointment with pulmonary, Dr. Hood this week. Over the last month he has had increased
weight intensification of diuretics most recently 80 mg daily with 2 days last week where he took an additional 40 mg in the evening. He took his Lasix 80 mg this morning.
Past medical history/past surgical history: Type 2 diabetes mellitus on metformin, hypertension, multiple myeloma, prostate cancer, heart failure with preserved ejection fraction, right-sided heart failure with pulmonary hypertension, diffuse fatty
liver disease, lumbar spine disease, diverticulitis in 2016, kidney stones, dyslipidemia, atherosclerosis of coronary arteries and aorta on CT imaging
Past surgical history: Prostatectomy Dr. Escalona 2020, bilateral pelvic lymphadenectomy 2020, cataract surgery
Past Medical History
Past Medical History: Other (See HPI)
Past Surgical History: Other (See HPI)
Social History
Tobacco: Non-Smoker
Alcohol: None
Drug: None
Personal:
Living: With Family
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
Family History
Family History: Other (Family history of hypertension, diabetes mellitus type 2, glaucoma, hypertension, lung cancer)
Allergies / Home Medications
Allergy/AdvReac Type Severity Reaction Status Date / Time
bacitracin Allergy redness Verified 09/09/23 10:19
[From Neosporin
([id number])]
neomycin Allergy redness Verified 09/09/23 10:19
[From Neosporin
([id number])]
polymyxin B Allergy redness Verified 09/09/23 10:19
[From Neosporin
([id number])]
Medication Instructions Recorded Confirmed Type
aspirin 81 mg tablet,delayed 81 mg PO DAILY Blood clot 03/12/15 09/09/23 History
release prevention/tx ##0
valsartan 40 mg tablet 40 mg PO DAILY Blood pressure 03/12/15 09/09/23 History
red yeast rice 600 mg tablet 1,200 mg PO DAILY Supplement 11/13/15 09/09/23 History
cholecalciferol (vitamin D3) 25 1,000 units PO DAILY Supplement 08/20/20 09/09/23 History
mcg (1,000 unit) tablet
acyclovir 400 mg tablet 400 mg PO BID Infection 10/22/22 09/09/23 History
coQ10 (ubiquinol) 100 mg capsule 100 mg PO DAILY Supplement 10/22/22 09/09/23 History
cyanocobalamin (vitamin B-12) 1,000 mcg PO DAILY Supplement 10/22/22 09/09/23 History
1,000 mcg tablet
denosumab 120 mg/1.7 mL (70 mg/mL) 120 mg SC [id number] Cancer 10/22/22 09/09/23 History
subcutaneous solution (Xgeva)
dexamethasone 4 mg tablet 20 mg PO UD Anti-inflammatory 10/22/22 09/09/23 History
loratadine 10 mg tablet (Claritin) 10 mg PO DAILY PRN allergies 10/22/22 09/09/23 History
tamsulosin 0.4 mg capsule (Flomax) 0.4 mg PO QPM Urinary issue 10/22/22 09/09/23 History
zolpidem 5 mg tablet (Ambien) 5 mg PO HS PRN insomnia 01/15/23 09/09/23 History
glipizide 5 mg tablet, extended 5 mg PO DAILY Diabetes 08/30/23 09/09/23 History
release 24 hr
metformin 750 mg tablet,extended 1,500 mg PO BID Diabetes 08/30/23 09/09/23 History
release 24 hr
pomalidomide 2 mg capsule 2 mg PO QPM Cancer 08/30/23 09/09/23 History
(Pomalyst)
sildenafil 100 mg tablet 100 mg PO DAILY PRN ed 08/30/23 09/09/23 History
furosemide 80 mg tablet (Lasix) 80 mg PO DAILY #60 tabs 08/31/23 09/09/23 Rx
Review of Systems
-
History Source: Patient
All other systems: Negative unless noted
Constitutional: No Symptoms
EENT: No Symptoms
Respiratory: Trouble Breathing
Cardiac: No Symptoms
Abdomen/GI: Abdominal Pain (Right upper quadrant abdominal/rib pain)
: No Symptoms
Musculoskeletal: No Symptoms
Skin: No Symptoms
Neurological: No Symptoms
Endocrine: No Symptoms
Hematologic/Lymphatic: No Symptoms
Physical Exam
Vital Signs
Temp Pulse Resp BP Pulse Ox
98.8 F 97 18 96/62 93
09/09/23 19:37 09/09/23 21:00 09/09/23 19:37 09/09/23 19:37 09/09/23 21:17
Lab Results
09/09/23 12:27
09/09/23 12:27
Jvx-S-Eociuhlyonm Pept 5490 pg/ml 09/09/23 12:27
lipase not elevated.
Reviewed prior twelve-lead EKGs and echocardiogram from March 29, 2023 and August 30, 2023.
Reviewed outpatient [facility] chart
Reviewed chest x-ray and CT scan of the abdomen pelvis done on admission
Physical Exam
General: Well Developed, Well Nourished, No Apparent Distress and Comfortable
HEENT: Normocephalic, Anicteric and Moist Mucous Membranes
Respiratory: Clear, Crackles (Faint right-sided crackles at base) and Non Labored Respirations; Negative Wheezes or Rhonchi
Cardiac: S1/S2, Regular Rhythm and Murmur (2/6 SM. No RV heave); Negative Peripheral Edema
GI: Tender (Right upper quadrant tenderness without rebound) and Distended
Musculoskeletal: No Edema
Skin: Warm; Negative Rash
Neuro: AO x 3 and Nonfocal/Grossly Intact
Psych: Calm
Impression / Plan
-
Candy Cutter Machine: Dr. Ginger Lal
Impression:
Right-sided upper abdominal pain/rib pain likely related to right-sided diverticulitis noted on CT scan
Acute renal insufficiency
Chronic RV dysfunction/heart failure with preserved ejection fraction and pulmonary hypertension, Workup ongoing with plan for right heart catheterization this week
Mild aortic stenosis
Hypertension
Dyslipidemia on red yeast rice
CT imaging noting coronary atherosclerosis without history of [place]
Aortic atherosclerosis without aneurysm
Right bundle branch block
Type 2 diabetes mellitus
Fatty liver infiltration
History of prostate cancer status post prostatectomy
Multiple myeloma
History of diverticulitis in 2016
Degenerative joint disease of lumbar spine
Plan:
Admitted with right upper abdominal pain who appears nontoxic with CT abdomen findings of right-sided colonic diverticulitis adjacent to the right lobe of the liver
-Discussed with hospitalist and antibiotics will be started
Acute renal insufficiency on increasing dose of diuretics
-Appears relatively euvolemic despite elevated proBNP
-IV fluid bolus ordered by nephrology
-Hold metformin and valsartan
-Will check renal function tomorrow prior to restarting Lasix 80 mg daily
-Nephrology consulted
RV dysfunction/pulmonary hypertension workup ongoing
-No acute or chronic thromboembolic disease on recent testing
-Will discuss with Dr. Hodges timing of right heart catheterization given acute right-sided diverticulitis
Hypotension with history of hypertension
-Will hold valsartan and Lasix
-Monitor blood pressure trends
Type 2 diabetes mellitus, per medicine
-Hemoglobin A1c ordered by primary and pending
Multiple myeloma�noted
Data Reviewed
-
EKG: Report Reviewed by me
Radiology: Report Reviewed by me
CT Scan: Report Reviewed by me
Medical Tests (Nuc Med, Echo etc): Report Reviewed by me
Labs: Labs Reviewed by me
Old Records: Reviewed
--- NOTE | 2023-09-09 21:41 | PTCARENOTE ---
Pt received at start of shift, HR SR/ST 80s-100s. Pt OOB in chair. 500 mL bag NSS infusing at 60mL/hr per order. Pt denies any abdominal discomfort at this time. States the pain he was feeling earlier has disappeared. Pt educated on cardiac cath
procedure and plan of care. Pt informed of NPO status at 0000. Pt denies SOB at rest. Informed to notify RN if SOB worsens, lightheadedness/dizziness occurs, or if pain returns. Call bal within reach.
[2023-09-09 22:06] LABS: Glucose - Point of Care 183 mg/dl (70-99)
[2023-09-10] VITALS (12 sets, daily range): BP systolic 85–120; BP diastolic 28–69; PULSE 90–94; O2SAT 94–97; BMI 31.2
[2023-09-10] MEDS: UNASYN IV ×5 (00:21→23:15)
[2023-09-10] MEDS: NSS IV ×3 (03:22→21:00)
[2023-09-10 03:35] LABS: Hematocrit 26.5 % (39.0-52.0); Hemoglobin 8.6 g/dL (13.0-18.0); Mean Corp Hgb Conc. 32.5 g/dL (33.0-37.0); Mean Corpuscular Hgb 32.5 pg (27.0-31.0); Mean Platelet Volume 10.4 fL (7.4-10.4); Platelet Count 220 10^3/uL (130-400); Red Blood Cell Count 2.65 10^6/uL (4.70-6.10); Red Cell Dist. Width 15.6 % (11.5-14.5); White Blood Cell Count 3.6 10^3/uL (4.8-10.8)
[2023-09-10 03:45] LABS: Blood Urea Nitrogen 36 mg/dl (9-20); Calcium 7.5 mg/dl (8.4-10.2); Carbon Dioxide 22 mmol/L (22-30); Chloride 110 mmol/L (98-107); Estimated Creatinine Clearance 35 ml/min; Glucose 121 mg/dl (70-99); HDL Cholesterol 30 mg/dl; LDL Cholesterol, Calculated 13 mg/dl; Potassium 4.1 mmol/L (3.5-5.1); Sodium 133 mmol/L (135-145); Total Cholesterol 52 mg/dl (50-199); Triglyceride 45 mg/dl (10-149); Very Low Density Lipoprotein 9 mg/dl (0-30); eGFR 34.38
[2023-09-10 08:52] LABS: Glucose - Point of Care 133 mg/dl (70-99)
[2023-09-10 09:08] LABS: Glycohemoglobin (HgbA1c) 6.5 % (4.0-5.6)
--- NOTE | 2023-09-10 10:00 | CON.PUL ---
Consultation
Consultation Request
Date/Time Consultation Requested: 09/10/23-9 AM
Date/Time Consultation Performed: 09/29-9:30 AM
Requesting Provider: Hospitalist
Performing Provider: Dr. Vargas
Reason for Consultation: Pulmonary nodules and pulmonary hypertension
Medical History
-
Chief Complaint: Abdominal pain
History of Present Illness:
73-year-old male with history of prostate cancer status post prostatectomy and radiation therapy who also has a history of multiple myeloma receiving Krypolis and Pomalyst, diastolic CHF and diabetes who presented with right upper abdominal pain and
recent workup for pulmonary hypertension including CT chest showed multiple pulmonary nodules slightly increased in size-patient was to have an appointment with Dr. Marks on 09/10/23 now in the hospital pulmonary is consulted 09/10/23. Patient states
that Sunday he started developing right-sided abdominal pain. His abdominal pain became very tender. He finally came to the emergency room was noted to have probable diverticulitis. Abdominal pain has improved. He has some mild shortness of
breath when climbing stairs. He has been diagnosed with diastolic CHF and pulmonary hypertension. Pulm hypertension workup ruled out acute and chronic venous thromboembolic disease with CT chest and VQ scan. Pulmonary nodules increased in size
and he was to see Dr. Marks today. He states that his last scans when reviewed at [facility] said that his pulmonary nodules were stable and benign, ever, he has not had a scan in over a year and now the nodules are slightly increased in size.
Denies any pleurisy, mopped assist, chest congestion, nausea, diarrhea, or weakness.
Past Medical History
Past Medical History: None (Prostate cancer status post prostatectomy and radiation-Dr. Escalona and [facility]. Multiple myeloma. Diabetes. B12 deficiency. Diastolic CHF. Hypertension. Pulmonary hypertension. Stem cell harvest station 2021.)
Social History
Tobacco: Former Smoker (Quit 40 years ago)
Alcohol: None
Personal:
Living: With Family
Occupational Exposures: No known asbestos exposure
Environmental Exposures: No known tuberculosis exposure
Family History
Family History: Reviewed & Not Pertinent
Allergies / Home Medications
Allergies
Allergy/AdvReac Type Severity Reaction Status Date / Time
bacitracin Allergy redness Verified 09/09/23 10:19
[From Neosporin
([id number])]
neomycin Allergy redness Verified 09/09/23 10:19
[From Neosporin
([id number])]
polymyxin B Allergy redness Verified 09/09/23 10:19
[From Neosporin
([id number])]
Home Medications
Medication Instructions Recorded Confirmed Last Taken Type
aspirin 81 mg tablet,delayed 81 mg PO DAILY Blood clot 03/12/15 09/09/23 09/09/23 History
release prevention/tx ##0
valsartan 40 mg tablet 40 mg PO DAILY Blood pressure 03/12/15 09/09/23 09/09/23 History
red yeast rice 600 mg tablet 1,200 mg PO DAILY Supplement 11/13/15 09/09/23 09/09/23 History
cholecalciferol (vitamin D3) 25 1,000 units PO DAILY Supplement 08/20/20 09/09/23 09/09/23 History
mcg (1,000 unit) tablet
acyclovir 400 mg tablet 400 mg PO BID Infection 10/22/22 09/09/23 09/09/23 History
coQ10 (ubiquinol) 100 mg capsule 100 mg PO DAILY Supplement 10/22/22 09/09/23 09/09/23 History
cyanocobalamin (vitamin B-12) 1,000 mcg PO DAILY Supplement 10/22/22 09/09/23 09/09/23 History
1,000 mcg tablet
denosumab 120 mg/1.7 mL (70 mg/mL) 120 mg SC [id number] Cancer 10/22/22 09/09/23 Unknown History
subcutaneous solution (Xgeva)
dexamethasone 4 mg tablet 20 mg PO UD Anti-inflammatory 10/22/22 09/09/23 Unknown History
loratadine 10 mg tablet (Claritin) 10 mg PO DAILY PRN allergies 10/22/22 09/09/23 Unknown History
tamsulosin 0.4 mg capsule (Flomax) 0.4 mg PO QPM Urinary issue 10/22/22 09/09/23 09/08/23 History
zolpidem 5 mg tablet (Ambien) 5 mg PO HS PRN insomnia 01/15/23 09/09/23 Unknown History
glipizide 5 mg tablet, extended 5 mg PO DAILY Diabetes 08/30/23 09/09/23 09/09/23 History
release 24 hr
metformin 750 mg tablet,extended 1,500 mg PO BID Diabetes 08/30/23 09/09/23 09/09/23 History
release 24 hr
pomalidomide 2 mg capsule 2 mg PO QPM Cancer 08/30/23 09/09/23 09/08/23 History
(Pomalyst)
sildenafil 100 mg tablet 100 mg PO DAILY PRN ed 08/30/23 09/09/23 Unknown History
furosemide 80 mg tablet (Lasix) 80 mg PO DAILY #60 tabs 08/31/23 09/09/23 09/09/23 Rx
Review of Systems
-
Unable to Obtain full review of systems at this time due to: Other (Per HPI)
Vitals / Labs / Diagnostic Testing
Vital Signs
Temp Pulse Resp BP Pulse Ox
98.1 F 98 18 96/66 94
09/10/23 07:00 09/10/23 05:45 09/10/23 07:00 09/10/23 02:36 09/10/23 07:00
Lab Data
09/10/23 02:48
09/10/23 02:48
Diagnostic Testing:
Physical Exam
-
Exam:
Well-nourished and well-developed in no apparent distress
HEENT-atraumatic, normocephalic
Neck-supple, no JVD, no bruit
Heart-regular rate and rhythm-no murmurs, rubs or gallops
Chest-clear to auscultation, no wheezes, rare crackles at the bases
Back-no tenderness
Abdomen-soft, nontender, nondistended, no hepatosplenomegaly
Extremities-no cyanosis, clubbing, edema and good peripheral pulses
Integument-intact, no rashes, lesions or ecchymosis
Neurology-alert and oriented, nonfocal motor and sensory exam
Assessment
-
73-year-old male with history of prostate cancer status post prostatectomy and radiation therapy who also has a history of multiple myeloma receiving Krypolis and Pomalyst, diastolic CHF and diabetes who presented with right upper abdominal pain and
recent workup for pulmonary hypertension including CT chest showed multiple pulmonary nodules slightly increased in size-patient was to have an appointment with Dr. Marks on 09/10/23 now in the hospital pulmonary is consulted 09/10/23.
Assessment
Abdominal pain/diverticulitis
Volume overload with elevated proBNP
Multiple pulmonary nodules-some increased in size
ANAI-serum creatinine 2.0
Pulm hypertension with negative workup for venous thromboembolic disease (CT chest and VQ scan) for right heart catheterization
Hypokalemia
Hyponatremia
Rluwce-secngulbvw-iuxlugyyoz 8.6
Leukopenia-WBC 3.6
Fatty liver infiltration
Mild hyperglycemia-171
Conditions present prior to admission:
Prostate cancer status post prostatectomy 2020 with bilateral pelvic lymphadenectomy and radiation-Dr. Escalona and [facility].
Multiple myeloma.
Diabetes.
B12 deficiency.
Diastolic CHF.
Hypertension.
Hyperlipidemia
Pulmonary hypertension.
Diastolic dysfunction with preserved left ventricular function
Mild aortic stenosis
Lumbar spine disease
History of diverticulitis 2015
Renal calculi
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
Cataract surgery
Plan
Patient's acute decompensation appears to be related mostly to his acute diverticulitis
CT chest was personally reviewed-continues to have numerous small well-defined pulmonary nodules but overall increased in size
Last PET scan was June 2022-he was told at [facility] that things were stable and likely benign
Patient was to have appointment with Dr. Marks in the office to review these nodules
Once medically stabilized would likely benefit from PET scan, close radiographic follow-up and consideration towards biopsy especially if oncology in need of additional tissue
Patient follows up with oncology closely
Current medications for multiple myeloma may have some side effect including causing congestion
I briefly spoke to him about CAR-T technology recently approved for multiple myeloma-[employer]
Nephrology following
Replace electrolytes
Avoid dye for now
Pulmonary hypertension does not appear to be primary pulmonary related-negative for acute and chronic venous thromboembolic disease, no obvious interstitial lung disease
For right heart catheterization once stabilized
Check cultures
Empiric antibiotics
Follow abdominal exam
Follow hemoglobin-macrocytic and currently 8.6-likely related to multiple myeloma-no signs of acute blood loss
Monitor blood sugar
Insulin supplementation as needed
DVT prophylaxis-on Lovenox
Nutrition after bowel rest for diverticulitis
Outpatient follow-up with Dr. Marks as outlined above
Diagnostic data:
Chest x-ray 03/12/2015-NAD
Chest x-ray 10/22/2022-left lower lobe pneumonia
Chest x-ray 09/09/2023-hypoinflated, basilar atelectasis, no evidence for right-sided rib fracture
CT abdomen and pelvis 06/30/2020-few tiny pulmonary nodules developed since 2018, 2.2 mm right lower lobe, 2.7 mm right lower lobe, 1.2 mm right lower lobe and 3 mm right lower lobe, chronic diverticulosis
CT chest 08/30/2023-numerous small well-defined pulmonary nodules mainly in the upper to mid lungs relatively sparing the lower lungs have increased in size and number when compared to PET scan June 2022, cavitation of a nodule in the apical
region of the right upper lobe, diffuse fatty infiltration
CT abdomen 09/09/2023-mild to moderate dependent atelectasis posterior right lung, several small well-defined pulmonary nodules in the right lung appears unchanged from previous CT, fatty infiltration of the liver, no abscess identified, right-sided
colonic diverticulitis
PET scan 12/22/2020-FDG avid mixed lytic sclerotic expansile lesion lateral left sixth ribs suspicious for metastatic disease, FDG avid sclerotic focus proximal right tibia suspicious for metastatic disease, T6/7 vertebral area also suspicious as
well as mildly enlarged left axillary lymph nodes
PET scan 06/21/2022-recurrent prostate cancer and prostatectomy surgical bed, moderate number of new small subcentimeter solid nodules in the lungs suspicious for metastatic disease
VQ scan 09/05/2023-low probability for pulm embolism
Echocardiogram 03/29/2023-EF 60-65%, trace mitral regurgitation, mildly stenotic aortic valve
Data Reviewed
-
EKG: Report reviewed by me
Radiology: Report reviewed by me
CT Scan: Image personally visualized and interpreted
Ultrasound: Report reviewed by me
Labs: Labs reviewed by me
Old Records: Reviewed
Total Time Spent with Patient (in minutes): 55
--- NOTE | 2023-09-10 10:33 | PTOTSP ---
Pt is independent with mobility without an assistive device. HR slightly elevated. No complaints. No skilled PT needs were identified. Will sign off.
[2023-09-10] MEDS: VITAMIN B-12 1000 MCG PO (10:40)
[2023-09-10] MEDS: VITAMIN D3 (cholecalciferol) 25 MCG PO (10:40)
[2023-09-10] MEDS: ASPIR LOW (ENTERIC COATED) 81 MG PO (10:40)
[2023-09-10] MEDS: ZOVIRAX 400 MG PO ×2 (10:41→19:45)
--- NOTE | 2023-09-10 11:45 | CON.ONC ---
Addendum entered and electronically signed by Andie Brown MD 09/10/23 19:47:
Pt seen and examined, chart reviewed. Agree with H&P as per ЕЛЕНА Rodriguez.
Myeloma currently well controlled.
Holding myeloma tx for now as pt requiring R heart cath for pulmonary hypertension, also has cellulitis.
Original Note:
Impression
Impression
Multiple myeloma (Carfilzomib, pomalidomide)
Hx Patt 9 prostate cancer s/p prostatectomy/XRT (2020)
Congestive heart failure
Hyponatremia
Acute kidney injury
Acute right-sided abdominal pain
Acute diverticulitis
Abdominal distention
Pulmonary HTN for right heart cath this week
Plan
Plan
Hold Carfilzomib and Pomalidomide
Most recent myeloma panel performed 09/03/23
Continue Acyclovir for prophylaxis
CBC w/ diff daily
Transfuse to maintain Hgb >7, PLT >20
Continue B12 supplement daily
3/4 Creat 2.0
Follow CMP. (Baseline creatinine 1.0-1.3)
Nephrology following
Await Cardiology recs for right heart cath
Treatment of diverticulitis per primary team
Continue Lovenox
Supportive care
[facility] office notified of patient's hospitalization.
We will follow along.
Patient History
History of Present Illness
Floyd Guidry is a very pleasant 73 year old male known to Dr. Lewis with [facility] for history of multiple myeloma. He also follows with Dr. Solo at [facility]. He is maintained on Carfilzomib, Pomalidomide, and dexamethasone. He has a hx prostate cancer
s/p prostatectomy and radiation with Dr. Escalona in 2020. Patient presented to the ER yesterday, 09/08, with complaints of RLQ abdominal tenderness x4 days unrelieved by Ibuprofen which became tender to the touch. Denies N/V/D or any changes in
appetite. He admits to shortness of breath, which has been ongoing. All imaging thus far has been negative for acute PE. He has hx CHF with preserved EF for which he follows with Dr. Ginger Lal. He was recently admitted at for CHF
exacerbation and discharged on Lasix. He has continued on Lasix daily at doses as high as 120mg; currently 80mg. He was scheduled for a right heart catheterization for workup of pulmonary hypertension this with Dr. Hodges. Labs in the ED
revealed elevated of Creatinine to 1.9. He has been admitted for further evaluation and workup.
Past-Medical/Surgical History
Multiple Myeloma (Carfilzomib, Pomalidomide, dex)
Hx Patt 4+5=9 prostate cancer s/p prostatectomy, XRT (Dr. Escalona, 2020)
Bilateral pelvic lymphadenectomy (2020)
Chronic pulmonary nodules
Chronic anemia (receives Aranesp)
Vitamin B12 deficiency
DM type 2 (A1c 6.5%)
Hypertension
Congestive heart failure
Pulmonary hypertension
Nephrolithiasis
Right bundle branch block
Diverticulitis (2015)
Former smoker (quit 40 years ago)
Sciatica
Fatty liver
Cataract surgery
Patient Medication
Medication Instructions Recorded Confirmed Last Taken Type
aspirin 81 mg tablet,delayed 81 mg PO DAILY Blood clot 03/12/15 09/09/23 09/09/23 History
release prevention/tx ##0
valsartan 40 mg tablet 40 mg PO DAILY Blood pressure 03/12/15 09/09/23 09/09/23 History
red yeast rice 600 mg tablet 1,200 mg PO DAILY Supplement 11/13/15 09/09/23 09/09/23 History
cholecalciferol (vitamin D3) 25 1,000 units PO DAILY Supplement 08/20/20 09/09/23 09/09/23 History
mcg (1,000 unit) tablet
acyclovir 400 mg tablet 400 mg PO BID Infection 10/22/22 09/09/23 09/09/23 History
coQ10 (ubiquinol) 100 mg capsule 100 mg PO DAILY Supplement 10/22/22 09/09/23 09/09/23 History
cyanocobalamin (vitamin B-12) 1,000 mcg PO DAILY Supplement 10/22/22 09/09/23 09/09/23 History
1,000 mcg tablet
denosumab 120 mg/1.7 mL (70 mg/mL) 120 mg SC [id number] Cancer 10/22/22 09/09/23 Unknown History
subcutaneous solution (Xgeva)
dexamethasone 4 mg tablet 20 mg PO UD Anti-inflammatory 10/22/22 09/09/23 Unknown History
loratadine 10 mg tablet (Claritin) 10 mg PO DAILY PRN allergies 10/22/22 09/09/23 Unknown History
tamsulosin 0.4 mg capsule (Flomax) 0.4 mg PO QPM Urinary issue 10/22/22 09/09/23 09/08/23 History
zolpidem 5 mg tablet (Ambien) 5 mg PO HS PRN insomnia 01/15/23 09/09/23 Unknown History
glipizide 5 mg tablet, extended 5 mg PO DAILY Diabetes 08/30/23 09/09/23 09/09/23 History
release 24 hr
metformin 750 mg tablet,extended 1,500 mg PO BID Diabetes 08/30/23 09/09/23 09/09/23 History
release 24 hr
pomalidomide 2 mg capsule 2 mg PO QPM Cancer 08/30/23 09/09/23 09/08/23 History
(Pomalyst)
sildenafil 100 mg tablet 100 mg PO DAILY PRN ed 08/30/23 09/09/23 Unknown History
furosemide 80 mg tablet (Lasix) 80 mg PO DAILY #60 tabs 08/31/23 09/09/23 09/09/23 Rx
Active Medications
Generic Name Dose Route Start Last Admin
Trade Name Freq PRN Reason Stop Dose Admin
Acetaminophen 650 mg 09/09/23 18:07
Acetaminophen 325 Mg Tablet PO 10/07/23 18:06
Q6HPRN PRN
mild pain/ fever>100.5F
Acyclovir Sodium 400 mg 09/09/23 20:00 09/10/23 10:41
Acyclovir Sodium 200 Mg Capsule PO 09/19/23 19:59 400 mg
BID SOULEYMANE Administration
Aspirin 81 mg 09/10/23 08:00 09/10/23 10:40
Aspirin 81 Mg (Enteric Coated) Tablet PO 10/08/23 07:59 81 mg
DAILY SOULEYMANE Administration
Cholecalciferol 25 mcg 09/10/23 08:00 09/10/23 10:40
Cholecalciferol (Vitamin D3) 25 Mcg Tablet (1,000 Units) PO 10/08/23 07:59 25 mcg
DAILY SOULEYMANE Administration
Cyanocobalamin 1,000 mcg 09/10/23 08:00 09/10/23 10:40
Cyanocobalamin 1,000 Mcg Tablet PO 10/08/23 07:59 1,000 mcg
DAILY SOULEYMANE Administration
Dextrose 12.5 grams 09/09/23 19:47
Dextrose 50% (0.5 Grams/Ml) 50 Ml Syringe IV 10/07/23 19:46
[id number] PRN
hypoglycemia
Protocol
Enoxaparin Sodium 30 mg 09/09/23 18:07 09/09/23 19:34
Enoxaparin Sodium 30 Mg/0.3 Ml Syringe SC 10/07/23 18:06 30 mg
QPM SOULEYMANE Administration
Glipizide 5 mg 09/10/23 08:00 09/10/23 10:40
Glipizide 5 Mg Extended Release (24 H) Tablet PO 10/08/23 07:59 Not Given
DAILY SOULEYMANE
Glucagon 1 mg 09/09/23 19:47
Glucagon 1 Mg Vial IM 10/07/23 19:46
PRN PRN
hypoglycemia
Protocol
Sodium Chloride 500 mls @ 60 mls/hr 09/09/23 18:00 09/10/23 03:22
Nss IV Not Given
.Q8H20M SOULEYMANE
Ampicillin Sodium/Sulbactam 120 mls @ 240 mls/hr 09/10/23 00:00 09/10/23 06:16
Sodium 3 gm/ Sodium Chloride IV 120 mls
Q6H SOULEYMANE Administration
Insulin Aspart 0 units 09/10/23 07:30 09/10/23 10:39
Insulin Aspart Low Resistance 300 Units/3 Ml Pen.Injctr SC 10/08/23 07:29 Not Given
AC SOULEYMANE
Protocol
Loratadine 10 mg 09/09/23 18:07
Loratadine 10 Mg Tablet PO 10/07/23 18:06
DAILY PRN
allergies
Sodium Chloride 0 flush 09/09/23 18:00
Sodium Chloride 0.9% (Flush) Syringe IV 10/07/23 17:59
PER PROTOCOL SOULEYMANE
Tamsulosin HCl 0.4 mg 09/09/23 18:07 09/09/23 18:49
Tamsulosin 0.4 Mg Capsule PO 10/07/23 18:06 0.4 mg
QPM SOULEYMANE Administration
Zolpidem Tartrate 5 mg 09/09/23 18:07
Zolpidem Tartrate 5 Mg Tablet PO 10/07/23 18:06
HS PRN
insomnia
09/03/23 IgG 3692, IgA 4, IgM <10, Free kappa .04, Free lambda .06, Free K/L ratio: 1500.01
09/09/23: CT abdomen/pelvis: Several well-defined pulmonary nodules within the right lower lung, and appear unchanged from CT of the abdomen and pelvis of November 02, 2022. These are likely benign, but consideration for continued surveillance with CT of
the chest.As described, findings suggestive of right-sided colonic diverticulitis, involving the right colon directly inferior to the right lobe of the liver. There is adjacent inflammatory stranding and edema, but no evidence of an abscess.There is
also probably a second focal area of mild diverticulitis involving the sigmoid colon as described.No evidence for free intraperitoneal air.Hepatomegaly with diffuse fatty infiltration of the liver. Low-density lesions within the liver appear
unchanged, compatible with cysts and/or hemangioma.Stable splenomegaly.Bony degenerative changes as described
Review of Systems
-
History Source: Patient, Family, Coordinated Provider and Records
Constitutional: Reports No Symptoms; Denies Fever or Chills
EENT: Reports No Symptoms
Respiratory: Reports Trouble Breathing
Cardiac: Reports No Symptoms
GI: Reports Abdominal Pain (improved per patient)
Breast: Reports N/A
: Reports No Symptoms
Musculoskeletal: Reports No Symptoms
Skin: Reports No Symptoms
Neuro: Reports No Symptoms
Endocrine: Reports No Symptoms
Hematologic/Lymphatic: Reports No Symptoms
Allergy / Immunology: Reports No Symptoms
Psych: Reports No Symptoms
Physical Exam
-
Patient OOB to the chair. Family at bedside. He states his pain/abdominal tenderness has improved. He denies fever, chills, N/V/D.
General: Well Developed, Well Nourished, No Apparent Distress, Comfortable and Conversant
HEENT: Negative Jaundice
Cardiology: S1 and S2
Pulmonary: Other (diminished, faint scattered crackles)
GI: Normal Bowel Sounds (hyperactive bowel sounds), Distended and Other (RUQ/RLQ slightly tender to palpation, denies rebound tenderness )
Genito-Urinary: Deferred by me
Musculoskeletal: No Edema
Extremities: Pulses Present
Neurology: Non Focal
Skin: Warm and Dry
Psych: Calm
Labs
Lab Results
WBC 3.6 10^3/uL (4.8-10.8) L 09/10/23 02:48
RBC 2.65 10^6/uL (4.70-6.10) L 09/10/23 02:48
Hgb 8.6 g/dL (13.0-18.0) L 09/10/23 02:48
Hct 26.5 % (39.0-52.0) L 09/10/23 02:48
MCV 100.0 fL (80.0-94.0) H 09/10/23 02:48
MCH 32.5 pg (27.0-31.0) H 09/10/23 02:48
MCHC 32.5 g/dL (33.0-37.0) L 09/10/23 02:48
RDW 15.6 % (11.5-14.5) H 09/10/23 02:48
Plt Count 220 10^3/uL (130-400) 09/10/23 02:48
MPV 10.4 fL (7.4-10.4) 09/10/23 02:48
Abs Immat Gran (auto) 0.0 10^3/uL (0-0.05) 09/09/23 12:
Absolute Neuts (auto) 3.5 10^3/uL (1.4-6.5) 09/09/23 12:27
Absolute Lymphs (auto) 0.7 10^3/uL (1.2-3.4) L 09/09/23 12:27
Absolute Monos (auto) 0.4 10^3/uL (0.1-0.6) 09/09/23 12:27
Absolute Eos (auto) 0.0 10^3/uL (0-0.7) 09/09/23 12:
Absolute Basos (auto) 0.0 10^3/uL (0-0.2) 09/09/23 12:27
Immature Gran % 0.6 % (0-0.5) H 09/09/23 12:
Neutrophils % 74.9 % (42.2-75.2) 09/09/23 12:
Lymphocytes % 14.5 % (20.5-51.1) L 09/09/23 12:
Monocytes % 9.4 % (1.7-9.3) H 09/09/23 12:
Eosinophils % 0.4 % (0-6) 09/09/23 12:27
Basophils % 0.2 % (0-2) 09/09/23 12:27
Creatinine 2.0 mg/dL (0.7-1.3) H 09/10/23 02:48
Vital Signs
Vital Signs
Temp Pulse Resp BP Pulse Ox
98.1 F 98 18 96/66 94
09/10/23 07:00 09/10/23 05:45 09/10/23 07:00 09/10/23 02:36 09/10/23 07:00
--- NOTE | 2023-09-10 11:59 | CM ---
Chart reviewed. Patient is independent of ADLS, lives with his in a 2 [address], 2 MP, 0 DME. Plan is for the patient to return home. CM to follow
[2023-09-10 12:32] LABS: Glucose - Point of Care 157 mg/dl (70-99)
--- NOTE | 2023-09-10 14:47 | W.PN.CARDCBS ---
Today's Communication / Plan
-
RECOMMENDATIONS:
-ColoRectal surgery is evaluating now
-Feeling better on IV ABx's.
-Right heart catheterization tentatively scheduled for . It can be done at any time but would wait until clinically euvolemic and labs back to baseline levels.
Impression / Plan
-
Saloon Keeper: Dr. Ginger Lal
Impression:
-Right-sided upper abdominal pain/rib pain likely related to right-sided diverticulitis noted on CT scan
-Acute renal insufficiency
-Pulmonary hypertension and chronic RV dysfunction/heart failure with preserved ejection fraction: Planned right heart catheterization once back to normal clinical status.
-Mild aortic stenosis
-Hypertension
-Dyslipidemia on red yeast rice
-CT imaging noting coronary atherosclerosis without history of SC
-Aortic atherosclerosis without aneurysm
-Right bundle branch block
-Type 2 diabetes mellitus
-Fatty liver infiltration
-History of prostate cancer status post prostatectomy
-Active Multiple myeloma
-History of diverticulitis in 2016
-Degenerative joint disease of lumbar spine
Plan:
-Admitted with right upper abdominal pain who appears nontoxic with CT abdomen findings of right-sided colonic diverticulitis adjacent to the right lobe of the liver
Feels better on IV antibiotics
ColoRectal evaluating now
-Acute renal insufficiency on increasing dose of diuretics
Probably will wait on right heart until closer to typical volume status
Cr mildly elevated from baseline
Clinically euvolemic but elevated proBNP and Cr. Difficult to assess.
IV fluid bolus ordered by nephrology
Holding metformin and valsartan
-RV dysfunction/pulmonary hypertension workup ongoing
Eventual right heart catheterization
-Hypotension with history of hypertension: Slowly improving
Will hold valsartan and Lasix
Follow blood pressures
-Type 2 diabetes mellitus, per medicine
Hemoglobin A1c ordered by primary and pending
Multiple myeloma
Follows with Dr. Lewis ; [facility].
Progress Note - Saloon Keeper
Subjective
Date of Service: September 10, 2023
Feels better post IV ABx's. Abdomen less tender. Breathing okay.
Total Time Spent with Patient (in minutes): 50 min
Objective
Labs:
09/10/23 02:48
09/10/23 02:48
Labs
Hgb 8.6 g/dL (13.0-18.0) L 09/10/23 02:48
Hct 26.5 % (39.0-52.0) L 09/10/23 02:48
Plt Count 220 10^3/uL (130-400) 09/10/23 02:48
Sodium 133 mmol/L (135-145) L 09/10/23 02:48
Potassium 4.1 mmol/L (3.5-5.1) 09/10/23 02:48
BUN 36 mg/dl (9-20) H 09/10/23 02:48
Creatinine 2.0 mg/dL (0.7-1.3) H 09/10/23 02:48
Glucose 121 mg/dl (70-99) H 09/10/23 02:48
Vital Signs and I&O:
Vital Signs
Temp Pulse Resp BP Pulse Ox
98.2 F 90 18 102/69 96
09/10/23 12:27 09/10/23 14:15 09/10/23 12:27 09/10/23 12:25 09/10/23 12:27
Vital Signs
Temp Pulse Resp BP Pulse Ox
98.2 F 90 18 102/69 96
09/10/23 12:27 09/10/23 14:15 09/10/23 12:27 09/10/23 12:25 09/10/23 12:27
Intake & Output
09/07/23 09/08/23 09/09/23 09/10/23
23:59 23:59 23:59 23:59
Intake Total 480 / 480 560 / 560
Balance 480 / 480 560 / 560
Physical Exam
Physical Exam
GEN: AAO x 3. No acute distress
HEENT: NC/AT, sclera are anicteric
LUNGS: Clear to bases bilaterally. No wheezing
CV: Regular rate and rhythm. Normal S1/S2. No S3, No S4. Murmur: None
ABD : Soft, very mild discomfort RUQ. Bowel sounds are present.
EXT: No CCE
NEURO: No focal neurologic deficits
--- NOTE | 2023-09-10 15:04 | CON.CRS ---
Consultation
-
Performing Provider: Александр Burnett MD
Reason for Consultation: diverticulitis
Medical History
-
History of Present Illness:
Patient is a 73-year-old male with a PMH of multiple myeloma (s/p stem cell transplant, on Carfilzomib, pomalidomide managed by Dr. Lewis), prostate cancer s/p RT and prostatectomy in 2020, HTN, HLD, CAD, DM, pulmonary hypertension (pending right
heart cath), episode of diverticulitis in 2015 (confirmed on CT) who presented on 09/09/2023 with 3 days of severe right-sided abdominal pain. Denies any N/V, fevers or change in bowel habits. His last colonoscopy was in [address] Murillo which
was significant for 1 tubular adenoma, diverticulitis and internal hemorrhoids. In the ED, a CT scan was done showing acute diverticulitis of the ascending colon as well as small segment of the sigmoid colon without free air or abscess. WBC was
4.7, Hb 9.6, and Cr 1.9. He was admitted for bowel rest and IV antibiotics.
Past Medical History
Past Medical History: Other (per HPI)
Past Surgical History: Other (Prostatectomy 2020, cataracts)
Social History
Tobacco: Former Smoker (Quit 40 years ago)
Alcohol: Occasional
Drug: None
Personal:
Living: With Family
Employment: Retired
Family History
Family History: Other (Denies CRC or IBD, mother had diverticulitis)
Allergies / Home Medications
Allergy/AdvReac Type Severity Reaction Status Date / Time
bacitracin Allergy redness Verified 09/09/23 10:19
[From Neosporin
([id number])]
neomycin Allergy redness Verified 09/09/23 10:19
[From Neosporin
([id number])]
polymyxin B Allergy redness Verified 09/09/23 10:19
[From Neosporin
([id number])]
Medication Instructions Recorded Confirmed Type
aspirin 81 mg tablet,delayed 81 mg PO DAILY Blood clot 03/12/15 09/09/23 History
release prevention/tx ##0
valsartan 40 mg tablet 40 mg PO DAILY Blood pressure 03/12/15 09/09/23 History
red yeast rice 600 mg tablet 1,200 mg PO DAILY Supplement 11/13/15 09/09/23 History
cholecalciferol (vitamin D3) 25 1,000 units PO DAILY Supplement 08/20/20 09/09/23 History
mcg (1,000 unit) tablet
acyclovir 400 mg tablet 400 mg PO BID Infection 10/22/22 09/09/23 History
coQ10 (ubiquinol) 100 mg capsule 100 mg PO DAILY Supplement 10/22/22 09/09/23 History
cyanocobalamin (vitamin B-12) 1,000 mcg PO DAILY Supplement 10/22/22 09/09/23 History
1,000 mcg tablet
denosumab 120 mg/1.7 mL (70 mg/mL) 120 mg SC [id number] Cancer 10/22/22 09/09/23 History
subcutaneous solution (Xgeva)
dexamethasone 4 mg tablet 20 mg PO UD Anti-inflammatory 10/22/22 09/09/23 History
loratadine 10 mg tablet (Claritin) 10 mg PO DAILY PRN allergies 10/22/22 09/09/23 History
tamsulosin 0.4 mg capsule (Flomax) 0.4 mg PO QPM Urinary issue 10/22/22 09/09/23 History
zolpidem 5 mg tablet (Ambien) 5 mg PO HS PRN insomnia 01/15/23 09/09/23 History
glipizide 5 mg tablet, extended 5 mg PO DAILY Diabetes 08/30/23 09/09/23 History
release 24 hr
metformin 750 mg tablet,extended 1,500 mg PO BID Diabetes 08/30/23 09/09/23 History
release 24 hr
pomalidomide 2 mg capsule 2 mg PO QPM Cancer 02/22/24 03/03/24 History
(Pomalyst)
sildenafil 100 mg tablet 100 mg PO DAILY PRN ed 08/30/23 09/09/23 History
furosemide 80 mg tablet (Lasix) 80 mg PO DAILY #60 tabs 08/31/23 09/09/23 Rx
Review of Systems
-
All other systems: Negative unless noted
A 10 point review of systems was completed, and was negative except as per HPI.
Physical Exam
Vital Signs
Temp 98.2 F 09/10/23 12:27
Pulse 90 09/10/23 14:15
Resp Rate 18 09/10/23 12:27
Blood pressure 102/69 09/10/23 12:25
SaO2 96 09/10/23 12:27
09/09/23 09/10/23 09/11/23
06:59 06:59 06:59
Actual Weight 91.7 kg
Body Mass Index (BMI) 31.2
Lab Results / Allergies
09/10/23 02:48
09/10/23 02:48
WBC 3.6 10^3/uL (4.8-10.8) L 09/10/23 02:48
Hgb 8.6 g/dL (13.0-18.0) L 09/10/23 02:48
Hct 26.5 % (39.0-52.0) L 09/10/23 02:48
Plt Count 220 10^3/uL (130-400) 09/10/23 02:48
Abs Immat Gran (auto) 0.0 10^3/uL (0-0.05) 09/09/23 12:27
Neutrophils % 74.9 % (42.2-75.2) 09/09/23 12:27
Allergy/AdvReac Type Severity Reaction Status Date / Time
bacitracin Allergy redness Verified 09/09/23 10:19
[From Neosporin
([id number])]
neomycin Allergy redness Verified 09/09/23 10:19
[From Neosporin
([id number])]
polymyxin B Allergy redness Verified 09/09/23 10:19
[From Neosporin
([id number])]
Physical Exam
General: Well Developed, No Apparent Distress and Comfortable
HEENT: Normocephalic and Atraumatic
Respiratory: Non Labored Respirations
GI: Soft, Non Distended and Tender (Minimally to mildly tender in the right hemiabdomen, no rebound or guarding)
Skin: Warm and Dry
Neuro: AO x 3
Data Reviewed
-
Radiology: Image Personally Visualized and interpreted and Discussed with Patient
Labs: Labs Reviewed by me and Discussed with Patient
Assessment / Plan
-
73-year-old male with a PMH of multiple myeloma (s/p stem cell transplant, on Carfilzomib, pomalidomide managed by Dr. Lewis), prostate cancer s/p RT and prostatectomy in 2020, HTN, HLD, CAD, DM, pulmonary hypertension (pending right heart cath),
episode of diverticulitis in 2015 (confirmed on CT) who presented on 09/09/2023 with 3 days of severe right-sided abdominal pain. Denies any N/V, fevers or change in bowel habits. His last colonoscopy was in [address] Murillo which was significant
for 1 tubular adenoma, diverticulitis and internal hemorrhoids. In the ED, a CT scan was done showing acute diverticulitis of the ascending colon as well as small segment of the sigmoid colon without free air or abscess. WBC was 4.7, Hb 9.6, and
Cr 1.9. He was admitted for bowel rest and IV antibiotics.
AFVSS (was mildly hypotensive overnight, but corrected itself this morning with fluids)
WBC 3.6
�Exam and CT most consistent with right-sided diverticulitis with segment of sigmoid diverticulitis; however, right-sided diverticulitis is atypical and differential also includes infectious (less likely, denies any N/V/D), inflammatory or ischemic;
explained the pathophysiology of uncomplicated versus complicated diverticulitis; urgent surgery for diverticulitis has increased risk for an open surgery as well as creation of an ostomy, therefore, if no signs of hemodynamic instability or
peritonitis, nonoperative management is recommended; I explained the risks of nonoperative management including, but not limited to, failure and needing an urgent surgery
�Agree with clear liquid diet for now
� Continue IV Unasyn; if any decline or failure to progress, would switch to IV Zosyn to cover for hospital�acquired bacteria
� Okay for DVT PPx
� OOB/IS
� Will benefit from repeat colonoscopy as outpatient; per the patient, he is scheduled for a repeat this month on 09/27
�Appreciate primary, cardiology, oncology and pulmonology
--- NOTE | 2023-09-10 15:29 | W.PN.NEPH.PH ---
Today's Communication / Plan
-
- no fluids or diuretics today
Assessment/Plan
-
Assessment
Multiple myeloma on Krypolis and Pomalyst
Right ventricular overload on recent echocardiogram but with preserved ejection fraction
Diabetes mellitus type 2
Acute kidney injury
Hyperkalemia
Hyponatremia
Anemia
Right-sided abdominal pain
Plan
Eder inconclusive at this time. Appears to be euvolemic at this time. He has no resting shortness of breath or orthopnea. No orthostasis or lightheadedness.
Agree with [facility] to better understand volume status
Hold off on diuresis and fluids today
K has normalized
Patient being treated with abx for diverticulitis with improvement in abd pain
Please avoid nephrotoxic agents (valsartan, etc) and dose all medications for GFR
We will follow his basic metabolic panel along with you.
-
-
Date of Service: September 10, 2023
CC / HPI / ROS
-
Chief Complaint:
ANAI
History of Present Illness:
ANAI bl 0.8, up to 2
hyponatremia
Review of Systems:
UOP not recorded
abd pain improved
Labs
-
Labs:
WBC 3.6 10^3/uL (4.8-10.8) L 09/10/23 02:48
RBC 2.65 10^6/uL (4.70-6.10) L 09/10/23 02:48
Hgb 8.6 g/dL (13.0-18.0) L 09/10/23 02:48
Hct 26.5 % (39.0-52.0) L 09/10/23 02:48
Plt Count 220 10^3/uL (130-400) 09/10/23 02:48
Sodium 133 mmol/L (135-145) L 09/10/23 02:48
Potassium 4.1 mmol/L (3.5-5.1) 09/10/23 02:48
Chloride 110 mmol/L (98-107) H 09/10/23 02:48
Carbon Dioxide 22 mmol/L (22-30) 09/10/23 02:48
BUN 36 mg/dl (9-20) H 09/10/23 02:48
Creatinine 2.0 mg/dL (0.7-1.3) H 09/10/23 02:48
eGFR 34.38 09/10/23 02:48
Glucose 121 mg/dl (70-99) H 09/10/23 02:48
Calcium 7.5 mg/dl (8.4-10.2) L 09/10/23 02:48
Tzh-A-Kfrgqwrwmsn Pept 5490 pg/ml 09/09/23 12:27
Albumin 3.2 g/dl (3.5-5.0) L 09/09/23 12:27
Physical Exam
-
Vital Signs:
Vital Signs
Temp Pulse Resp BP Pulse Ox
98.2 F 90 18 102/69 96
09/10/23 12:27 09/10/23 14:15 09/10/23 12:27 09/10/23 12:25 09/10/23 12:27
Cardiovascular:: Regular rate and rhythm
Respiratory:: Bilateral: Coarse
Lung Excursion:: Normal
Abdomen:: Soft and Tender
Bowel Sounds:: Normal
Extremity Edema:: +2: Bilateral:
Flowers Catheter: No
--- NOTE | 2023-09-10 15:48 | W.PN.HOSP.TC ---
Today's Communication/Plan
-
Continue IV Unasyn
Continue basal insulin with sliding scale corrections and Accu-Cheks; hold metformin, valsartan, glipizide.
IV fluid
Follow BMP and CBC.
Assessment / Plan
Assessment / Plan
Impression:
Presentation with RUQ abdominal pain.
Acute ANAI.
Acute hypoxemic respiratory failure.
Acute on chronic heart failure with preserved ejection fraction.
Conditions PETROPHYSICIST:
Prostate cancer status post prostatectomy 2020 with bilateral pelvic lymphadenectomy and radiation-Dr. Escalona and [facility].�
B12 deficiency.�
Diastolic heart failure with preserved ejection fraction.
Hyperlipidemia
Mild aortic stenosis
Lumbar spine disease
History of diverticulitis 2015
Renal calculi
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
Cataract surgery
Multiple myeloma
Chronic anemia
Chronic leukopenia
Essential hypertension
Diabetes mellitus type 2
Chronic pulmonary nodules
Plan:
Presentation with RUQ abdominal pain.
-CT scan with right-sided diverticulitis, inflammatory versus ischemic.
-Improved pain with initiation of IV Unasyn.
-Continue antibiotics due to risk of perforations.
-Continue liquid diet.
-Appreciate colorectal surgery evaluation.
-Patient would benefit from outpatient colonoscopy with resolution of current symptoms.
Acute ANAI.
-Presentation with increased creatinine at 1.9, hyperkalemia, hyponatremia, and corrected hypocalcemia of 8.14.
-Currently euvolemic with no orthostasis, lightheadedness, shortness of breath, orthopnea.
-Potassium normalized, mildly hyponatremic, follow BMP.
-Hold valsartan (nephrotoxic), metformin, and glipizide.
-Hold IV Lasix.
-IV fluid.
-Nephrology evaluation appreciated.
Acute hypoxemic respiratory failure.
-Current O2 sat 98% on room air.
-Outpatient appointment with Dr. Marks tomorrow.
-Patient scheduled for right heart catheterization with Dr. Hodges for PETROPHYSICIST, for pulmonary hypertension assessment.
-Prior studies including CT scan and VQ scan were negative for acute/chronic VTE disease.
-Recent CT chest with increased number of well-defined pulmonary nodules.
-PET scan June 2022 at [place] with stable/likely benign results.
-Outpatient oncology follow-up advised, patient may benefit from repeat PET scan.
-Pulmonary evaluation appreciated.
Acute on chronic heart failure with preserved ejection fraction.
-Patient with chronic RV dysfunction/heart failure with preserved EF on recent echo, suspected pulmonary hypertension due to aforementioned.
-Plan right heart catheterization for pending clinical improvement.
-proBNP 5490 although patient is euvolemic with no shortness of breath, orthopnea etc.
-Hold IV Lasix due to ongoing ANAI.
-Follow BMP and weight.
-Cardiology evaluation appreciated.
Multiple myeloma
-Hold pomalidomide and carfilzomib per oncology.
-Continue prophylactic acyclovir
-Continue outpatient oncology follow-up.
Anemia of chronic disease.
-Current hemoglobin 8.6. Likely due to multiple myeloma, no evidence of bleeding.
-Monitor hemoglobin level with CBC in AM.
Chronic leukopenia
- Likely secondary to pomalidomide
-Hold for now.
Prostate cancer status post prostatectomy/radiation
-Continue tamsulosin.
Type 2 diabetes
-A1c 6.5
-Hold glipizide and metformin.
-Continue basal insulin with Accu-Cheks and sliding scale coverage.
Essential hypertension
-Hold valsartan.
-Continue prophylactic aspirin.
Vitamin B12 deficiency
-Continue vitamin B12 supplementation.
DVT prophylaxis
-Lovenox
Anticipated Discharge: Within 24 hours
Subjective/Interval History
-
Date of Service: September 10, 2023
Objective Data
-
Vital Signs:
Vital Signs
Temp Pulse Resp BP Pulse Ox
98.2 F 90 18 102/69 96
09/10/23 12:27 09/10/23 14:15 09/10/23 12:27 09/10/23 12:25 09/10/23 12:27
I&O
09/09/23 09/10/23 09/11/23
06:59 06:59 06:59
Intake Total 480 / 480 560 / 560
Balance 480 / 480 560 / 560
Review of Systems
-
History Source: Patient
Constitutional: Reports No Symptoms
Respiratory: Reports No Symptoms
Cardiac: Reports No Symptoms
Abdomen/GI: Reports No Symptoms
Genitourinary: Reports No Symptoms
Musculoskeletal: Reports No Symptoms
Skin: Reports No Symptoms
Neuro: Reports No Symptoms
Endocrine: Reports No Symptoms
Physical Exam
-
General: No Apparent Distress and Comfortable
HEENT: Normocephalic, Atraumatic, Moist Mucous Membranes and Anicteric
Respiratory: Clear to Auscultation; Negative Rhonchi or Crackles
Cardiac: Regular Rhythm and S1/S2
GI: Soft, Nontender, Nondistended, Normal Bowel Sounds, Distended and No Hepatosplenomegaly
Genito-urinary: No Costovertebral Tender
Musculoskeletal: No Clubbing, No Cyanosis and No Edema
Skin: Warm and Dry
Neuro: Awake, Alert, Oriented, AO x 3 and No Motor Deficits
Hematologic / Lymphatic: No Lymphadenopathy
Psych: Calm and Intact Judgement/Insight
Data Reviewed
-
Diagnostic Radiology: Image personally visualized and interpreted, Report Reviewed by me and Discussed with Physician
CT Scan: Image personally visualized and interpreted, Report Reviewed by me and Discussed with Physician
Ultrasound: Image personally visualized and interpreted, Report Reviewed by me and Discussed with Physician
Labs: Labs Reviewed by me and Discussed with Physician
Old Records: Reviewed
--- NOTE | 2023-09-10 16:51 | W.PN.UPDATE ---
Update Note
Progress Note Update
Patient seen and examined
Discussed with resident
Impression:
Presentation with right upper quadrant abdominal pain
Acute right-sided diverticulitis
Acute CHF preserved EF
ANAI with serum creatinine up to 2.0
Hyperkalemia
-
Conditions prior to admission:
Multiple myeloma.
Chronic diastolic CHF
Essential hypertension
Dyslipidemia
Pulmonary hypertension.
Prostate CA.
Prior history of diverticulitis in 2016
History of nephrolithiasis
Plan:
Acute right-sided diverticulitis confirmed with CT scan
I evidence for complications including abscess or perforation
Initiated on Unasyn 09/08 with no improved pain
Continue IV antibiotics Unasyn
Bowel rest, diet downgraded to clear liquid.
Colorectal surgery evaluation appreciated
Acute CHF preserved EF.
Pulmonary hypertension.
Has recent workup negative for pulmonary embolism including CT PE and VQ scan.
Has been diuresed with recent hospitalization and increased dose of Lasix now with rising creatinine up to 2.
Currently stable respiratory status with no evidence of distress or increased work of breathing. Does not require supplemental oxygen
Hold further Lasix and monitor closely.
Right heart cath has been contemplated by cardiology with hope of better volume assessment.
ANAI likely in the settings of loop diuretics, angiotensin receptor kalen, NSAIDs.
FeNa 0.74 advocating for low volume status
Status post IV fluid bolus on admission
Monitor closely while off diuretics.
Hold Lasix and valsartan.
Nephrology input appreciated
Multiple myeloma.
On carfilzomib and pomalidomide.
Above regimen likely contributing to volume retention and decompensated CHF.
Hold given CHF as well as acute infection/diverticulitis
Continue acyclovir.
Neutropenia
Chronic normocytic anemia
Follow CBC closely
Type 2 diabetes [id number].
Hemoglobin A1c 6.5
Clear liquid diet.
Hold glipizide and metformin.
Basal bolus protocol.
[2023-09-10 17:02] LABS: Glucose - Point of Care 133 mg/dl (70-99)
[2023-09-10] MEDS: FLOMAX 0.400000000000000022 MG PO (18:09)
[2023-09-10] MEDS: LOVENOX SC (18:10)
[2023-09-10 21:33] LABS: Glucose - Point of Care 103 mg/dl (70-99)
--- NOTE | 2023-09-10 23:28 | PTCARENOTE ---
Pt received start of shift, HR SR w/BBB 80s-90s. Pt in bed, states they feel very tired. Reinforced RHC procedure with pt. Pt states no questions at this time regarding plan of care. Pt denies CP, abdominal pain, or SOB at rest. Informed to notify
RN if any changes, call bal within reach.
Upon obtaining evening vitals, pt woken from sleep. O2 88-90% RA. Placed on 1L NC, 95%.
[2023-09-11 03:09] VITALS: BP 122/76
[2023-09-11 04:11] LABS: Blood Urea Nitrogen 32 mg/dl (9-20); Calcium 7.5 mg/dl (8.4-10.2); Carbon Dioxide 22 mmol/L (22-30); Chloride 108 mmol/L (98-107); Estimated Creatinine Clearance 39 ml/min; Glucose 109 mg/dl (70-99); Magnesium 2.2 mg/dl (1.6-2.3); Potassium 4.4 mmol/L (3.5-5.1); Sodium 134 mmol/L (135-145); eGFR 39.01
[2023-09-11] MEDS: UNASYN IV ×4 (05:32→23:08)
[2023-09-11 06:00] VITALS: BMI 29.1
[2023-09-11 07:30] VITALS: BP 103/71
[2023-09-11 07:32] LABS: Glucose - Point of Care 113 mg/dl (70-99)
[2023-09-11] MEDS: ASPIR LOW (ENTERIC COATED) 81 MG PO (08:43)
[2023-09-11] MEDS: VITAMIN B-12 1000 MCG PO (08:43)
[2023-09-11] MEDS: ZOVIRAX 400 MG PO ×2 (08:43→19:05)
[2023-09-11] MEDS: VITAMIN D3 (cholecalciferol) 25 MCG PO (08:44)
--- NOTE | 2023-09-11 10:52 | W.PN.CARDCBS ---
Addendum entered and electronically signed by Greg Sagastume DO 09/11/23 11:44:
I saw and examined the patient.
The [employer] Helper's note was reviewed and I agree with the note.
Comment:
Plan:
Right heart cath scheduled for September 12
Cr improving
Nephrology following. Cont to hold lasix and nephrotoxic agents
Cont tx for diverticulitis.
Continues to improve.
Original Note:
Today's Communication / Plan
-
Continue treatment of diverticulitis
Right heart cath on
Follow creatinine. Continue to hold Lasix/nephrotoxic agents
Impression / Plan
-
Decal Transferrer: Dr. Ginger Lal
Impression:
-Right-sided upper abdominal pain/rib pain likely related to right-sided diverticulitis noted on CT scan
-Acute renal insufficiency
-Pulmonary hypertension and chronic RV dysfunction/heart failure with preserved ejection fraction: Planned right heart catheterization once back to normal clinical status.
-Mild aortic stenosis
-Hypertension
-Dyslipidemia on red yeast rice
-CT imaging noting coronary atherosclerosis without history of VA
-Aortic atherosclerosis without aneurysm
-Right bundle branch block
-Type 2 diabetes mellitus
-Fatty liver infiltration
-History of prostate cancer status post prostatectomy
-Active Multiple myeloma
-History of diverticulitis in 2016
-Degenerative joint disease of lumbar spine
Plan:
-He is improving from a diverticulitis standpoint. Tolerating clear liquids. Colorectal following. Continue antibiotics per their recommendations
-Creatinine improving, 1.8 on 09/10. Lasix, glipizide, metformin, valsartan remain on hold
-Plan for right heart cath on , 09/13/2023
-Blood pressure stable
-Discussed with patient and at bedside
Progress Note - Decal Transferrer
Subjective
Date of Service: September 11, 2023
Reports very mild residual right-sided abdominal pain. Denies shortness of breath
Objective
Labs:
09/10/23 02:48
09/11/23 03:27
Labs
Hgb 8.6 g/dL (13.0-18.0) L 09/10/23 02:48
Hct 26.5 % (39.0-52.0) L 09/10/23 02:48
Plt Count 220 10^3/uL (130-400) 09/10/23 02:48
Sodium 134 mmol/L (135-145) L 09/11/23 03:27
Potassium 4.4 mmol/L (3.5-5.1) 09/11/23 03:27
BUN 32 mg/dl (9-20) H 09/11/23 03:27
Creatinine 1.8 mg/dL (0.7-1.3) H 09/11/23 03:27
Glucose 109 mg/dl (70-99) H 09/11/23 03:27
Vital Signs and I&O:
Vital Signs
Temp Pulse Resp BP Pulse Ox
98.1 F 87 16 103/71 95
09/11/23 07:28 09/11/23 08:30 09/11/23 07:28 09/11/23 07:30 09/11/23 07:28
Vital Signs
Temp Pulse Resp BP Pulse Ox
98.1 F 87 16 103/71 95
09/11/23 07:28 09/11/23 08:30 09/11/23 07:28 09/11/23 07:30 09/11/23 07:28
Intake & Output
09/09/23 09/10/23 09/11/23 09/12/23
07:59 07:59 07:59 07:59
Intake Total 480 / 480 1390 / 1390 240 / 240
Balance 480 / 480 1390 / 1390 240 / 240
Physical Exam
Physical Exam
GEN: No distress, awake, alert, oriented x3. Sitting in chair
HEENT: supple, anicteric, mmm, EOMI
LUNGS: CTA bilaterally, no wheezes/rales
CV: Reg, S1/S2, no murmur
ABD: soft, BS+, NT/ND
EXT: No cyanosis, clubbing, edema
NEURO: Gross non-focal
SKIN: Warm, pink, dry. No rash
--- NOTE | 2023-09-11 10:53 | W.PN.PUL.V3 ---
Today's Communication / Plan
-
Wean oxygen.
Increase activity.
Out of bed.
Outpatient pulmonary follow-up
Assessment
-
73-year-old male with history of prostate cancer status post prostatectomy and radiation therapy who also has a history of multiple myeloma receiving Krypolis and Pomalyst, diastolic CHF and diabetes who presented with right upper abdominal pain and
recent workup for pulmonary hypertension including CT chest showed multiple pulmonary nodules slightly increased in size-patient was to have an appointment with Dr. Marks on 09/10/23 now in the hospital pulmonary is consulted 09/10/23.
Assessment
Abdominal pain/diverticulitis
Volume overload with elevated proBNP
Multiple pulmonary nodules-some increased in size
ANAI-serum creatinine 2.0
Pulm hypertension with negative workup for venous thromboembolic disease (CT chest and VQ scan) for right heart catheterization
Hypokalemia
Hyponatremia
Meamue-jbmgzjkrux-jmylkbkmtm 8.6
Leukopenia-WBC 3.6
Fatty liver infiltration
Mild hyperglycemia-171
Conditions present prior to admission:
Prostate cancer status post prostatectomy 2020 with bilateral pelvic lymphadenectomy and radiation-Dr. Escalona and [facility].
Multiple myeloma.
Diabetes.
B12 deficiency.
Diastolic CHF.
Hypertension.
Hyperlipidemia
Pulmonary hypertension.
Diastolic dysfunction with preserved left ventricular function
Mild aortic stenosis
Lumbar spine disease
History of diverticulitis 2016
Renal calculi
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
Cataract surgery
Plan
Abdominal pain improved with antibiotics and rest.
His most recent acute decompensation appears to be related mostly to his acute diverticulitis
Once again, his CT chest was personally reviewed-continues to have numerous small well-defined pulmonary nodules but overall increased in size
Last PET scan was June 2022-he was told at [place] that things were stable and likely benign
Patient was to have appointment with Dr. Marks in the office to review these nodules
Once medically stabilized would likely benefit from PET scan, close radiographic follow-up and consideration towards biopsy especially if oncology in need of additional tissue
Patient follows up with oncology closely
Current medications for multiple myeloma may have some side effect including causing congestion
Dr. Vargas briefly spoke to him about CAR-T technology recently approved for multiple myeloma-[employer]
Nephrology following.
Continue to replace electrolytes
Avoid dye for now
Pulmonary hypertension does not appear to be primary pulmonary related-negative for acute and chronic venous thromboembolic disease, no obvious interstitial lung disease
For right heart catheterization once stabilized-tentatively scheduled for 09/13/[address] Hodges
Cultures unrevealing-last cultures nasal swab 08/30/23
Empiric antibiotics
Follow abdominal exam-improved
Follow hemoglobin-macrocytic and currently 8.6-likely related to multiple myeloma-no signs of acute blood loss
Monitor blood sugar
Insulin supplementation as needed
DVT prophylaxis-on Lovenox
Nutrition after bowel rest for diverticulitis
Outpatient follow-up with Dr. Marks as outlined above
Diagnostic data:
Chest x-ray 03/12/2015-NAD
Chest x-ray 10/22/2022-left lower lobe pneumonia
Chest x-ray 09/09/2023-hypoinflated, basilar atelectasis, no evidence for right-sided rib fracture
CT abdomen and pelvis 06/30/2020-few tiny pulmonary nodules developed since 2017, 2.2 mm right lower lobe, 2.7 mm right lower lobe, 1.2 mm right lower lobe and 3 mm right lower lobe, chronic diverticulosis
CT chest 08/30/2023-numerous small well-defined pulmonary nodules mainly in the upper to mid lungs relatively sparing the lower lungs have increased in size and number when compared to PET scan June 2022, cavitation of a nodule in the apical
region of the right upper lobe, diffuse fatty infiltration
CT abdomen 09/09/2023-mild to moderate dependent atelectasis posterior right lung, several small well-defined pulmonary nodules in the right lung appears unchanged from previous CT, fatty infiltration of the liver, no abscess identified, right-sided
colonic diverticulitis
PET scan 12/22/2020-FDG avid mixed lytic sclerotic expansile lesion lateral left sixth ribs suspicious for metastatic disease, FDG avid sclerotic focus proximal right tibia suspicious for metastatic disease, T6/7 vertebral area also suspicious as
well as mildly enlarged left axillary lymph nodes
PET scan 06/21/2022-recurrent prostate cancer and prostatectomy surgical bed, moderate number of new small subcentimeter solid nodules in the lungs suspicious for metastatic disease
VQ scan 09/05/2023-low probability for pulm embolism
Echocardiogram 03/29/2023-EF 60-65%, trace mitral regurgitation, mildly stenotic aortic valve
Subjective Data
-
Date of Service:
Date of Service: September 11, 2023
Chief Complaint: Pulmonary Follow Up and Dyspnea Follow Up
Subjective:
No complaints of shortness of breath, chest pain, productive cough, abdominal pain, much improved
Review of Systems
General: Other ( per HPI)
Objective Data
Data Reviewed
Vital Signs / I&O:
Vital Signs
Temp Pulse Resp BP Pulse Ox
98.1 F 87 16 103/71 95
09/11/23 07:28 09/11/23 08:30 09/11/23 07:28 09/11/23 07:30 09/11/23 07:28
Intake and Output
09/10/23 09/11/23 09/12/23
06:59 06:59 06:59
Intake Total 480 / 480 1390 / 1390 240 / 240
Balance 480 / 480 1390 / 1390 240 / 240
SaO2: 95
Nasal Cannula flow liters per minute: 1
Labs/Micro/Reports
Lab Data
09/10/23 02:48
09/11/23 03:27
[2023-09-11 10:54] VITALS: BMI 31.4
[2023-09-11 11:24] VITALS: BP 127/56
--- NOTE | 2023-09-11 11:55 | CM ---
Chart reviewed. Patient is scheduled for a right heart cath on 09/13/23. Patient is independent of ADLS, lives with his in a 2 STH, 2 MP, 0 DME. Plan is for the patient to return home when medically stable. CM to follow
--- NOTE | 2023-09-11 12:08 | PTCARENOTE ---
Patient continues IV abx and now on full liquid diet. He is walking with family around the unit this shift and denies and pain, shortness of breath, palpitations. No edema seen upon assessment. Pt re-weighed with standing scale and weight updated in
chart. See reports/flowsheets/MAR for further care details.
--- NOTE | 2023-09-11 13:05 | W.PN.CRS1 ---
Today's Communication / Plan
-
Fulls.
Assessment/Plan
-
Ascending colon diverticulitis and possible mild sigmoid colon diverticulitis.
1. Pain and tenderness much improved.
2. Afebrile and nontachycardic.
3. Tolerating clears. Advanced to fulls.
4. Continue antibiotics.
Subjective Data
Subjective Data
Date of Service: September 11, 2023
Seen in AM. Discomfort much improved. Tolerating clears with BMs. In good spirits.
Objective Data
-
Vital Signs
Temp Pulse Resp BP Pulse Ox
98.5 F 88 18 127/56 96
09/11/23 11:18 09/11/23 12:00 09/11/23 11:18 09/11/23 11:24 09/11/23 11:18
Intake & Output
09/10/23 09/11/23 09/12/23
06:59 06:59 06:59
Intake Total 480 / 480 1390 / 1390 240 / 240
Balance 480 / 480 1390 / 1390 240 / 240
Intake:
Oral fluids 480 / 480 1170 / 1170 240 / 240
IV piggybacks 220 / 220
Other:
Number of approximated MODERATE 1 3 2
amounts of urine
Lab Results
09/10/23 02:48
09/11/23 03:27
Physical Exam
-
General: No Acute Distress
Chest: Clear
Cardiovascular: Regular Rate & Rhythm
Abdomen: Non Distended and Tender (Minimal right-sided)
--- NOTE | 2023-09-11 13:12 | W.PN.HOSP.TC ---
Addendum entered and electronically signed by Chico Rodríguez MD 09/11/23 16:23:
Patient seen and examined
Discussed with resident
Impression:
Presentation with right upper quadrant abdominal pain
Acute right-sided diverticulitis
Acute CHF preserved EF
ANAI with serum creatinine up to 2.0
Hyperkalemia
-
Conditions prior to admission:
Multiple myeloma.
Chronic diastolic CHF
Essential hypertension
Dyslipidemia
Pulmonary hypertension.
Prostate CA.
Prior history of diverticulitis in 2016
History of nephrolithiasis
Plan:
Acute right-sided diverticulitis confirmed with CT scan
I evidence for complications including abscess or perforation
Initiated on Unasyn 09/08 with no improved pain
Continue IV antibiotics Unasyn
Bowel rest, diet downgraded to full liquid.
Colorectal surgery evaluation appreciated
Acute CHF preserved EF.
Pulmonary hypertension.
Has recent workup negative for pulmonary embolism including CT PE and VQ scan.
Has been diuresed with recent hospitalization and increased dose of Lasix now with rising creatinine up to 2.
Currently stable respiratory status with no evidence of distress or increased work of breathing.� Does not require supplemental oxygen
Hold further Lasix and monitor closely.
Right heart cath has been contemplated by cardiology with hope of better volume assessment tentatively for 09/12
ANAI likely in the settings of loop diuretics, angiotensin receptor kalen, NSAIDs.
FeNa 0.74 advocating for low volume status
Status post IV fluid bolus on admission
Monitor closely while off diuretics.
Hold Lasix and valsartan.
Nephrology input appreciated
Multiple myeloma.
On carfilzomib and pomalidomide.
Above regimen likely contributing to volume retention and decompensated CHF.
Hold given CHF as well as acute infection/diverticulitis
Continue acyclovir.
Neutropenia
Chronic normocytic anemia
Follow CBC closely
Type 2 diabetes uim-czkbndw-oqgniptck.
Hemoglobin A1c 6.5
Clear liquid diet.
Hold glipizide and metformin.
Basal bolus protocol.
Original Note:
Today's Communication/Plan
-
Improving renal function
Continue holding Lasix and nephrotoxic agents
Continue antibiotics for now diverticulitis, pain greatly improved.
Continue clear diet, patient tolerating.
Assessment / Plan
Assessment / Plan
Impression:
Presentation with RUQ abdominal pain.
Acute ANAI.
Acute hypoxemic respiratory failure.
Acute on chronic heart failure with preserved ejection fraction.
Conditions [employer]:
Prostate cancer status post prostatectomy 2020 with bilateral pelvic lymphadenectomy and radiation-Dr. Escalona and [facility].�
B12 deficiency.�
Diastolic heart failure with preserved ejection fraction.
Hyperlipidemia
Mild aortic stenosis
Lumbar spine disease
History of diverticulitis 2015
Renal calculi
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
Cataract surgery
Multiple myeloma
Chronic anemia
Chronic leukopenia
Essential hypertension
Diabetes mellitus type 2
Chronic pulmonary nodules
Plan:
Presentation with RUQ abdominal pain.
-CT scan with right-sided diverticulitis, inflammatory versus ischemic with no evidence of complications including perforations or abscesses.
-Improved pain with initiation of IV Unasyn.
-Continue IV antibiotics due to risk of perforations.
-Bowel rest, continue liquid diet.
-Appreciate colorectal surgery evaluation.
-Patient would benefit from outpatient colonoscopy with resolution of current symptoms.
Acute ANAI.
-Presentation with increased creatinine at 1.9, hyperkalemia, hyponatremia, and corrected hypocalcemia of 8.14.
-Currently euvolemic with no orthostasis, lightheadedness, shortness of breath, orthopnea.
-Potassium normalized, mildly hyponatremic, follow BMP.
-Hold valsartan (nephrotoxic), metformin, and glipizide.
-Hold IV Lasix.
-IV fluid.
-Nephrology evaluation appreciated.
Acute hypoxemic respiratory failure.
-Currently stable respiratory status with O2 sat 98% on room air.
-Patient scheduled for right heart catheterization with Dr. Hodges for [employer], for pulmonary hypertension assessment.
-Prior studies including CT scan and VQ scan were negative for acute/chronic VTE disease.
-Recent CT chest with increased number of well-defined pulmonary nodules.
-PET scan June 2022 at [place] with stable/likely benign results.
-Outpatient oncology follow-up advised, patient may benefit from repeat PET scan.
-Pulmonary evaluation appreciated.
Acute on chronic heart failure with preserved ejection fraction.
-Patient with chronic RV dysfunction/heart failure with preserved EF on recent echo, suspected pulmonary hypertension due to aforementioned.
-Plan for right heart catheterization for in place with improving renal function.
-proBNP 5490 although patient is euvolemic with no shortness of breath, orthopnea etc.
-Hold IV Lasix and valsartan due to ongoing ANAI.
-Follow BMP and weight.
-Cardiology evaluation appreciated.
Multiple myeloma
-Hold pomalidomide and carfilzomib per oncology given current CHF exacerbation, acute diverticulitis likely worsened by above regimen.
-Continue prophylactic acyclovir
-Neutropenia
-Continue outpatient oncology follow-up.
Anemia of chronic disease.
-Current hemoglobin 8.6. Likely due to multiple myeloma, no evidence of bleeding.
-Monitor hemoglobin level with CBC in AM.
Chronic leukopenia
- Likely secondary to pomalidomide
-Hold for now.
Prostate cancer status post prostatectomy/radiation
-Continue tamsulosin.
Type 2 diabetes
-A1c 6.5
-Hold glipizide and metformin.
-Continue basal insulin with Accu-Cheks and sliding scale coverage.
Essential hypertension
-Hold valsartan.
-Continue prophylactic aspirin.
Vitamin B12 deficiency
-Continue vitamin B12 supplementation.
DVT prophylaxis
-Lovenox
Anticipated Discharge: 24 - 48 hours
Subjective/Interval History
-
Date of Service: September 11, 2023
Objective Data
-
Labs:
Laboratory Results
09/11/23
03:27
Sodium 134 L
Potassium 4.4
Chloride 108 H
Carbon Dioxide 22
BUN 32 H
Creatinine 1.8 H
Glucose 109 H
Calcium 7.5 L
Vital Signs:
Vital Signs
Temp Pulse Resp BP Pulse Ox
98.5 F 88 18 127/56 96
09/11/23 11:18 09/11/23 12:00 09/11/23 11:18 09/11/23 11:24 09/11/23 11:18
I&O
09/10/23 09/11/23 09/12/23
06:59 06:59 06:59
Intake Total 480 / 480 1390 / 1390 240 / 240
Balance 480 / 480 1390 / 1390 240 / 240
Review of Systems
-
History Source: Patient
Constitutional: Reports No Symptoms
Respiratory: Reports No Symptoms
Cardiac: Reports No Symptoms
Abdomen/GI: Reports No Symptoms
Genitourinary: Reports No Symptoms
Musculoskeletal: Reports No Symptoms
Skin: Reports No Symptoms
Neuro: Reports No Symptoms
Endocrine: Reports No Symptoms
Physical Exam
-
General: No Apparent Distress and Comfortable
HEENT: Normocephalic, Atraumatic, Moist Mucous Membranes and Anicteric
Respiratory: Clear to Auscultation; Negative Rhonchi or Crackles
Cardiac: Regular Rhythm and S1/S2
GI: Soft, Nontender, Nondistended, Normal Bowel Sounds, Distended and No Hepatosplenomegaly
Genito-urinary: No Costovertebral Tender
Musculoskeletal: No Clubbing, No Cyanosis and No Edema
Skin: Warm and Dry
Neuro: Awake, Alert, Oriented, AO x 3 and No Motor Deficits
Hematologic / Lymphatic: No Lymphadenopathy
Psych: Calm and Intact Judgement/Insight
Data Reviewed
-
Diagnostic Radiology: Image personally visualized and interpreted, Report Reviewed by me and Discussed with Physician
CT Scan: Image personally visualized and interpreted, Report Reviewed by me and Discussed with Physician
Ultrasound: Image personally visualized and interpreted, Report Reviewed by me and Discussed with Physician
Labs: Labs Reviewed by me and Discussed with Physician
Old Records: Reviewed
[2023-09-11 13:13] LABS: Glucose - Point of Care 128 mg/dl (70-99)
--- NOTE | 2023-09-11 13:29 | W.PN.ONC ---
Today's Communication / Plan
-
Mgmt of diverticulitis per CRS, liquid diet for now, antibiotics
Cardiac w/u ongoing, for right heart catheterization on
Monitor ANAI, likely from Lasix, though progression of myeloma could be contributory
09/03/23 myeloma labs noted for rising light chains and IgG - kyprolis and pomalyst stopped for progression + new cardiotoxicity
Will plan to update myeloma studies again in 1-2 weeks; further treatment plans TBD based on results of cardiac testing and discussions w/ Dr. Solo at [place]
DVT ppx
Impression
Impression
Acute right-sided abdominal pain, Acute diverticulitis
Multiple myeloma
Hx Patt 9 prostate cancer s/p prostatectomy/XRT (2020)
Congestive heart failure
Hyponatremia
Acute kidney injury
Acute right-sided abdominal pain
Acute diverticulitis
Abdominal distention
Pulmonary HTN for right heart cath this week
Plan
Plan
Mgmt of diverticulitis per CRS, liquid diet for now, antibiotics
Cardiac w/u ongoing, for right heart catheterization on
Monitor ANAI, likely from Lasix, though progression of myeloma could be contributory
09/03/23 myeloma labs noted for rising light chains and IgG - kyprolis and pomalyst stopped for progression + new cardiotoxicity
Will plan to update myeloma studies again in 1-2 weeks; further treatment plans TBD based on results of cardiac testing and discussions w/ Dr. Solo at [place]
DVT ppx
Subjective/Objective
Subjective/Objective
abd pain getting better
tolerating liquid diet
at bedside
Vital Signs:
Vital Signs
Temp Pulse Resp BP Pulse Ox
98.5 F 88 18 127/56 96
09/11/23 11:18 09/11/23 12:00 09/11/23 11:18 09/11/23 11:24 09/11/23 11:18
Lab Results:
Laboratory Data
WBC 3.6 10^3/uL (4.8-10.8) L 09/10/23 02:48
Hgb 8.6 g/dL (13.0-18.0) L 09/10/23 02:48
Plt Count 220 10^3/uL (130-400) 09/10/23 02:48
eGFR 39.01 09/11/23 03:27
[2023-09-11 14:48] VITALS: BP 95/68
--- NOTE | 2023-09-11 16:59 | W.PN.NEPH.PH ---
Today's Communication / Plan
-
no diuresis, no fluids
Assessment/Plan
-
Assessment
Multiple myeloma on Krypolis and Pomalyst
Right ventricular overload on recent echocardiogram but with preserved ejection fraction
Diabetes mellitus type 2
Acute kidney injury
Hyperkalemia
Hyponatremia
Anemia
Right-sided abdominal pain
Plan
Cr slightly improved
Eder inconclusive at this time. Appears to be euvolemic at this time. He has no resting shortness of breath or orthopnea. No orthostasis or lightheadedness.
Agree with [facility] to better understand volume status, planned for
Hold off on diuresis and fluids today
K has normalized
Patient being treated with abx for diverticulitis with improvement in abd pain
Please avoid nephrotoxic agents (valsartan, etc) and dose all medications for GFR
We will follow his basic metabolic panel along with you.
-
-
Date of Service: September 11, 2023
CC / HPI / ROS
-
Chief Complaint:
ANAI
History of Present Illness:
ANAI bl 0.8, up to 2, down to 1.8
hyponatremia
Review of Systems:
UOP not recorded
abd pain improved
Labs
-
Labs:
WBC 3.6 10^3/uL (4.8-10.8) L 09/10/23 02:48
RBC 2.65 10^6/uL (4.70-6.10) L 09/10/23 02:48
Hgb 8.6 g/dL (13.0-18.0) L 09/10/23 02:48
Hct 26.5 % (39.0-52.0) L 09/10/23 02:48
Plt Count 220 10^3/uL (130-400) 09/10/23 02:48
Sodium 134 mmol/L (135-145) L 09/11/23 03:27
Potassium 4.4 mmol/L (3.5-5.1) 09/11/23 03:27
Chloride 108 mmol/L (98-107) H 09/11/23 03:27
Carbon Dioxide 22 mmol/L (22-30) 09/11/23 03:27
BUN 32 mg/dl (9-20) H 09/11/23 03:27
Creatinine 1.8 mg/dL (0.7-1.3) H 09/11/23 03:27
eGFR 39.01 09/11/23 03:27
Glucose 109 mg/dl (70-99) H 09/11/23 03:27
Calcium 7.5 mg/dl (8.4-10.2) L 09/11/23 03:27
Crd-O-Mioxvvwnxqm Pept 5490 pg/ml 09/09/23 12:27
Albumin 3.2 g/dl (3.5-5.0) L 09/09/23 12:27
Physical Exam
-
Vital Signs:
Vital Signs
Temp Pulse Resp BP Pulse Ox
98.2 F 86 16 95/68 95
09/11/23 15:36 09/11/23 14:48 09/11/23 15:36 09/11/23 14:48 09/11/23 14:48
Cardiovascular:: Regular rate and rhythm
Respiratory:: Bilateral: Coarse
Lung Excursion:: Normal
Abdomen:: Nontender and Soft
Bowel Sounds:: Normal
Extremity Edema:: None: Bilateral:
Flowers Catheter: No
[2023-09-11] MEDS: LOVENOX SC (17:34)
[2023-09-11] MEDS: FLOMAX 0.400000000000000022 MG PO (17:35)
[2023-09-11 17:47] LABS: Glucose - Point of Care 111 mg/dl (70-99)
[2023-09-11 18:53] VITALS: BP 120/61
[2023-09-11 21:36] LABS: Glucose - Point of Care 118 mg/dl (70-99)
[2023-09-11 23:12] VITALS: BP 110/82
--- NOTE | 2023-09-11 23:18 | PTCARENOTE ---
Pt received start of shift, HR SR/ST w/ BBB 80s-100s. Pt OOB in chair with family in room. Pt appears in high spirits, states he is happy his tele box was working properly so that he could take a walk around the unit a couple times. Pt aware of plan
of care, no questions at this time. Pt denies any abdominal discomfort at rest, SOB, or lightheadedness/dizziness. Informed to notify RN if any changes, call bal within reach.
[2023-09-12] VITALS (8 sets, daily range): BP systolic 100–124; BP diastolic 56–81; BMI 31.5
[2023-09-12 05:08] LABS: Blood Urea Nitrogen 27 mg/dl (9-20); Calcium 7.2 mg/dl (8.4-10.2); Carbon Dioxide 23 mmol/L (22-30); Chloride 109 mmol/L (98-107); Estimated Creatinine Clearance 39 ml/min; Glucose 112 mg/dl (70-99); Magnesium 2.3 mg/dl (1.6-2.3); Potassium 4.1 mmol/L (3.5-5.1); Sodium 135 mmol/L (135-145); eGFR 39.01
[2023-09-12] MEDS: UNASYN IV ×4 (06:16→23:24)
[2023-09-12 06:58] LABS: Glucose - Point of Care 122 mg/dl (70-99)
--- NOTE | 2023-09-12 08:29 | W.PN.CRS1 ---
Today's Communication / Plan
-
LRD.
Assessment/Plan
-
Ascending colon diverticulitis and possible mild sigmoid colon diverticulitis.
1.� Pain and tenderness continues to improve.
2.� Afebrile and nontachycardic.
3.� Tolerating fulls. Advanced to LRD.
4.� Continue antibiotics.
Subjective Data
Subjective Data
Date of Service: September 12, 2023
Minimal discomfort. Tolerated fulls.
Objective Data
-
Vital Signs
Temp Pulse Resp BP Pulse Ox
98.2 F 88 18 124/56 97
09/12/23 07:02 09/12/23 07:45 09/12/23 07:02 09/12/23 07:02 09/12/23 07:02
Intake & Output
09/11/23 09/12/23 09/13/23
06:59 06:59 06:59
Intake Total 1390 / 1390 1060 / 1060
Balance 1390 / 1390 1060 / 1060
Intake:
Oral fluids 1170 / 1170 960 / 960
IV piggybacks 220 / 220 100 / 100
Other:
Number of approximated MODERATE 3 1
amounts of urine
Lab Results
09/10/23 02:48
09/12/23 04:23
Physical Exam
-
General: No Acute Distress
Chest: Clear
Cardiovascular: Regular Rate & Rhythm
Abdomen: Non Distended and Tender (minimal R sided)
--- NOTE | 2023-09-12 08:34 | W.PN.PUL.V3 ---
Today's Communication / Plan
-
antibiotics.
Increase activity.
Right heart catheter tomorrow
Assessment
-
73-year-old male with history of prostate cancer status post prostatectomy and radiation therapy who also has a history of multiple myeloma receiving Krypolis and Pomalyst, diastolic CHF and diabetes who presented with right upper abdominal pain and
recent workup for pulmonary hypertension including CT chest showed multiple pulmonary nodules slightly increased in size-patient was to have an appointment with Dr. Marks on 09/10/23 now in the hospital pulmonary is consulted 09/10/23.
Assessment
Abdominal pain/diverticulitis
Volume overload with elevated proBNP
Multiple pulmonary nodules-some increased in size
ANAI-serum creatinine 2.0
Pulm hypertension with negative workup for venous thromboembolic disease (CT chest and VQ scan) for right heart catheterization
Hypokalemia
Hyponatremia
Mbgcfl-fftkrtysjo-mnjhiwyerb 8.6
Leukopenia-WBC 3.6
Fatty liver infiltration
Mild hyperglycemia-171
Conditions present prior to admission:
Prostate cancer status post prostatectomy 2020 with bilateral pelvic lymphadenectomy and radiation-Dr. Escalona and [facility].
Multiple myeloma.
Diabetes.
B12 deficiency.
Diastolic CHF.
Hypertension.
Hyperlipidemia
Pulmonary hypertension.
Diastolic dysfunction with preserved left ventricular function
Mild aortic stenosis
Lumbar spine disease
History of diverticulitis 2016
Renal calculi
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
Cataract surgery
Plan
.
Abdominal exam continues to improve with antibiotics
His most recent acute decompensation appears to be related mostly to his acute diverticulitis
Once again, his CT chest was personally reviewed-continues to have numerous small well-defined pulmonary nodules but overall increased in size
Last PET scan was June 2022-he was told at [place] that things were stable and likely benign
Patient was to have appointment with Dr. Marks in the office to review these nodules
Once medically stabilized would likely benefit from PET scan, close radiographic follow-up and consideration towards biopsy especially if oncology in need of additional tissue
Patient follows up with oncology closely
Current medications for multiple myeloma may have some side effect including causing congestion
Dr. Vargas briefly spoke to him about CAR-T technology recently approved for multiple myeloma-[facility]
Nephrology following-correspondence reviewed
Continue to replace electrolytes
Pulmonary hypertension does not appear to be primary pulmonary related-negative for acute and chronic venous thromboembolic disease, no obvious interstitial lung disease
tentatively scheduled for right heart catheterization 09/13/[address] Hodges
Cultures unrevealing-last cultures nasal swab 08/30/23
Empiric antibiotics
Follow abdominal exam-improved
Follow hemoglobin-macrocytic and currently 8.6-likely related to multiple myeloma-no signs of acute blood loss
Monitor blood sugar
Insulin supplementation as needed
DVT prophylaxis-on Lovenox
Nutrition after bowel rest for diverticulitis
Outpatient follow-up with Dr. Marks as outlined above
Diagnostic data:
Chest x-ray 03/12/2015-NAD
Chest x-ray 10/22/2022-left lower lobe pneumonia
Chest x-ray 09/09/2023-hypoinflated, basilar atelectasis, no evidence for right-sided rib fracture
CT abdomen and pelvis 06/30/2020-few tiny pulmonary nodules developed since 2018, 2.2 mm right lower lobe, 2.7 mm right lower lobe, 1.2 mm right lower lobe and 3 mm right lower lobe, chronic diverticulosis
CT chest 08/30/2023-numerous small well-defined pulmonary nodules mainly in the upper to mid lungs relatively sparing the lower lungs have increased in size and number when compared to PET scan June 2022, cavitation of a nodule in the apical
region of the right upper lobe, diffuse fatty infiltration
CT abdomen 09/09/2023-mild to moderate dependent atelectasis posterior right lung, several small well-defined pulmonary nodules in the right lung appears unchanged from previous CT, fatty infiltration of the liver, no abscess identified, right-sided
colonic diverticulitis
PET scan 12/22/2020-FDG avid mixed lytic sclerotic expansile lesion lateral left sixth ribs suspicious for metastatic disease, FDG avid sclerotic focus proximal right tibia suspicious for metastatic disease, T6/7 vertebral area also suspicious as
well as mildly enlarged left axillary lymph nodes
PET scan 06/21/2022-recurrent prostate cancer and prostatectomy surgical bed, moderate number of new small subcentimeter solid nodules in the lungs suspicious for metastatic disease
VQ scan 09/05/2023-low probability for pulm embolism
Echocardiogram 03/29/2023-EF 60-65%, trace mitral regurgitation, mildly stenotic aortic valve
Subjective Data
-
Date of Service:
Date of Service: September 12, 2023
Chief Complaint: Pulmonary Follow Up and Dyspnea Follow Up
Subjective:
Feels better, less abdominal pain, no complaints shortness of breath or cough
Review of Systems
General: Other ( per HPI)
Objective Data
Data Reviewed
Vital Signs / I&O:
Vital Signs
Temp Pulse Resp BP Pulse Ox
98.2 F 88 18 124/56 97
09/12/23 07:02 09/12/23 07:45 09/12/23 07:02 09/12/23 07:02 09/12/23 07:02
Intake and Output
09/11/23 09/12/23 09/13/23
06:59 06:59 06:59
Intake Total 1390 / 1390 1060 / 1060
Balance 1390 / 1390 1060 / 1060
SaO2: 97
Nasal Cannula flow liters per minute: 1
Labs/Micro/Reports
Lab Data
09/10/23 02:48
09/12/23 04:23
[2023-09-12] MEDS: ASPIR LOW (ENTERIC COATED) 81 MG PO (09:30)
[2023-09-12] MEDS: VITAMIN D3 (cholecalciferol) 25 MCG PO (09:30)
[2023-09-12] MEDS: VITAMIN B-12 1000 MCG PO (09:30)
[2023-09-12] MEDS: ZOVIRAX 400 MG PO ×2 (09:31→19:39)
[2023-09-12] MEDS: FLUSH (NSS) 1 FLUSH IV (09:31)
[2023-09-12 09:35] LABS: NT-proBNP 2910 pg/ml
--- NOTE | 2023-09-12 09:48 | PTCARENOTE ---
Received patient this morning resting in bed. IV restarted by IV team, and unasyn given as scheduled. Dr. Miranda saw patient this morning and diet advanced to low residue. Patient would like to shower, will request order from physician.
[2023-09-12] MEDS: LASIX 40 MG IV (10:20)
--- NOTE | 2023-09-12 10:34 | W.PN.CARDCBS ---
Addendum entered and electronically signed by Ginger Lal MD 09/12/23 11:38:
I saw and examined the patient.
The Maintenance Electrician's note was reviewed and I agree with the note.
Comment:
-Diverticulitis symptomatically improving. Appreciate input from primary service and colorectal.
-Heart failure with preserved ejection fraction and right heart failure with pulmonary hypertension noted. Right heart failure and pulmonary hypertension is a newer diagnosis with prior outpatient plan once euvolemic to undergo right heart
catheterization. [place] to be possibly related to chemotherapy/immunotherapy.
-Patient given 1 dose of 40 IV Lasix now. Follow creatinine. Appreciate nephrology input.
-Avoid nephrotoxic medication.
-Right heart cath if he remains stable tomorrow.
-In addition he was previously scheduled to see pulmonary as an outpatient lung nodules had been noted on recent testing some with cavitation. Will need follow-up.
-Sinus tachycardia has been acute on chronic since last hospital stay and echocardiogram. Will add low-dose beta-kalen. Thyroid function test normal.
Original Note:
Today's Communication / Plan
-
IV lasix 40mg x1 today
RHC in AM
toprol 25mg daily
Impression / Plan
-
Shoe Repairer: Dr. Ginger Lal
Impression:
-Right-sided upper abdominal pain/rib pain likely related to right-sided diverticulitis noted on CT scan
-Acute renal insufficiency
-Pulmonary hypertension and chronic RV dysfunction/heart failure with preserved ejection fraction: Planned right heart catheterization once back to normal clinical status.
-Mild aortic stenosis
-Hypertension
-Dyslipidemia on red yeast rice
-CT imaging noting coronary atherosclerosis without history of [place]
-Aortic atherosclerosis without aneurysm
-Right bundle branch block
-Type 2 diabetes mellitus
-Fatty liver infiltration
-History of prostate cancer status post prostatectomy
-Active Multiple myeloma
-History of diverticulitis in 2016
-Degenerative joint disease of lumbar spine
Plan:
-Now on low residue diet. Colorectal following. Continue antibiotics.
-Creatinine stable at 1.8. Repeat proBNP elevated at 2910. Will give 40 mg IV Lasix x 1 today. Dry weight ~199 pounds. Outpatient lasix, glipizide, metformin, valsartan remain on hold
-Plan for right heart cath on , 09/13/2023
-noted to be tachy at times on review of tele. start toprol 25mg daily and follow
-Blood pressure stable
Progress Note - Shoe Repairer
Subjective
Date of Service: September 12, 2023
tolerating diet. abd pain improving
Objective
Labs:
09/10/23 02:48
09/12/23 04:23
Labs
Hgb 8.6 g/dL (13.0-18.0) L 09/10/23 02:48
Hct 26.5 % (39.0-52.0) L 09/10/23 02:48
Plt Count 220 10^3/uL (130-400) 09/10/23 02:48
Sodium 135 mmol/L (135-145) 09/12/23 04:23
Potassium 4.1 mmol/L (3.5-5.1) 09/12/23 04:23
BUN 27 mg/dl (9-20) H 09/12/23 04:23
Creatinine 1.8 mg/dL (0.7-1.3) H 09/12/23 04:23
Glucose 112 mg/dl (70-99) H 09/12/23 04:23
Vital Signs and I&O:
Vital Signs
Temp Pulse Resp BP Pulse Ox
98.2 F 88 18 124/56 97
09/12/23 07:02 09/12/23 07:45 09/12/23 07:02 09/12/23 07:02 09/12/23 08:34
Vital Signs
Temp Pulse Resp BP Pulse Ox
98.2 F 88 18 124/56 97
09/12/23 07:02 09/12/23 07:45 09/12/23 07:02 09/12/23 07:02 09/12/23 08:34
Intake & Output
09/10/23 09/11/23 09/12/23 09/13/23
07:59 07:59 07:59 07:59
Intake Total 480 / 480 1390 / 1390 1060 / 1060
Balance 480 / 480 1390 / 1390 1060 / 1060
--- NOTE | 2023-09-12 10:55 | W.PN.NEPH.PH ---
Today's Communication / Plan
-
follow bmp
Assessment/Plan
-
Assessment
Multiple myeloma on Krypolis and Pomalyst
Right ventricular overload on recent echocardiogram but with preserved ejection fraction
Diabetes mellitus type 2
Acute kidney injury
Hyperkalemia
Hyponatremia
Anemia
Right-sided abdominal pain
Plan
Cr unchanged at 1.8 , uop not recorded and weights unchanged
lasix 40mg IV provided times one by cardiology this am
Eder inconclusive at this time. Appears to be euvolemic at this time. He has no resting shortness of breath or orthopnea. No orthostasis or lightheadedness.
Agree with [facility] to better understand volume status, planned for
K has normalized
Patient being treated with abx for diverticulitis with improvement in abd pain and diet advancing
Please avoid nephrotoxic agents (valsartan, etc) and dose all medications for GFR
We will follow his basic metabolic panel along with you.
-
-
Date of Service: September 12, 2023
CC / HPI / ROS
-
Chief Complaint:
ANAI
History of Present Illness:
ANAI bl 0.8, up to 2, down to 1.8
hyponatremia
Review of Systems:
UOP not recorded
abd pain improved
no fevers
Labs
-
Labs:
WBC 3.6 10^3/uL (4.8-10.8) L 09/10/23 02:48
RBC 2.65 10^6/uL (4.70-6.10) L 09/10/23 02:48
Hgb 8.6 g/dL (13.0-18.0) L 09/10/23 02:48
Hct 26.5 % (39.0-52.0) L 09/10/23 02:48
Plt Count 220 10^3/uL (130-400) 09/10/23 02:48
Sodium 135 mmol/L (135-145) 09/12/23 04:23
Potassium 4.1 mmol/L (3.5-5.1) 09/12/23 04:23
Chloride 109 mmol/L (98-107) H 09/12/23 04:23
Carbon Dioxide 23 mmol/L (22-30) 09/12/23 04:23
BUN 27 mg/dl (9-20) H 09/12/23 04:23
Creatinine 1.8 mg/dL (0.7-1.3) H 09/12/23 04:23
eGFR 39.01 09/12/23 04:23
Glucose 112 mg/dl (70-99) H 09/12/23 04:23
Calcium 7.2 mg/dl (8.4-10.2) L 09/12/23 04:23
Bau-K-Itvkgnwkqup Pept 2910 pg/ml 09/12/23 04:23
Albumin 3.2 g/dl (3.5-5.0) L 09/09/23 12:27
Physical Exam
-
Vital Signs:
Vital Signs
Temp Pulse Resp BP Pulse Ox
98.2 F 88 18 124/56 97
09/12/23 07:02 09/12/23 07:45 09/12/23 07:02 09/12/23 07:02 09/12/23 08:34
Cardiovascular:: Regular rate and rhythm
Respiratory:: Bilateral: Coarse
Lung Excursion:: Normal
Abdomen:: Soft and Tender (right sided)
Bowel Sounds:: Normal
Extremity Edema:: None: Bilateral:
Flowers Catheter: No
[2023-09-12] MEDS: TOPROL XL 25 MG PO (11:19)
--- NOTE | 2023-09-12 11:48 | W.PN.HOSP.TC ---
Addendum entered and electronically signed by Chico Rodríguez MD 09/12/23 16:14:
Patient seen and examined
Discussed with resident
Impression:
Presentation with right upper quadrant abdominal pain
Acute right-sided diverticulitis
Acute CHF preserved EF
ANAI with serum creatinine up to 2.0
Hyperkalemia
-
Conditions prior to admission:
Multiple myeloma.
Chronic diastolic CHF
Essential hypertension
Dyslipidemia
Pulmonary hypertension.
Prostate CA.
Prior history of diverticulitis in 2016
History of nephrolithiasis
Plan:
Acute right-sided diverticulitis confirmed with CT scan
I evidence for complications including abscess or perforation
Initiated on Unasyn 09/08 with no improved pain
Continue IV antibiotics Unasyn
With pain improved, diet being advanced to low residue today
Colorectal surgery evaluation appreciated
Acute CHF preserved EF.
Pulmonary hypertension.
Has recent workup negative for pulmonary embolism including CT PE and VQ scan.
Has been diuresed with recent hospitalization and increased dose of Lasix now with rising creatinine up to 2.
Currently stable respiratory status with no evidence of distress or increased work of breathing.� Does not require supplemental oxygen
Lasix IV 40 mg provided on 09/11 in anticipation of right heart catheterization 09/12
Initiated on low-dose of Toprol
Right heart cath has been contemplated by cardiology with hope of better volume assessment tentatively for 09/12
ANAI likely in the settings of loop diuretics, angiotensin receptor kalen, NSAIDs.
FeNa 0.74 advocating for low volume status
Status post IV fluid bolus on admission
Creatinine plateaued at 1.8
Monitor closely while off diuretics.
Hold Lasix and valsartan.
Nephrology input appreciated
Multiple myeloma.
On carfilzomib and pomalidomide.
Above regimen likely contributing to volume retention and decompensated CHF.
Hold given CHF as well as acute infection/diverticulitis
Continue acyclovir.
Neutropenia
Chronic normocytic anemia
Follow CBC closely
Type 2 diabetes [id number]-[id number].
Hemoglobin A1c 6.5
Clear liquid diet.
Hold glipizide and metformin.
Basal bolus protocol.
Original Note:
Today's Communication/Plan
-
Significantly improved diverticulitis symptoms
Creatinine plateaued at 1.8.
Received IV Lasix 40 mg this a.m. by cardiology, follow creatinine.
Currently euvolemic with no orthostasis, lightheadedness, shortness of breath, orthopnea.
Right heart cath tomorrow if he continues to be stable.
Potassium and sodium levels normalized. Follow BMP.
Toprol for acute on chronic sinus tachycardia, normal thyroid function test.
Assessment / Plan
Assessment / Plan
Impression:
Acute on chronic sinus tachycardia
Significantly improved diverticulitis symptoms.
Acute ANAI with plateaued creatinine at 1.8.
Acute hypoxemic respiratory failure.
Acute on chronic heart failure with preserved ejection fraction.
Conditions [facility]:
Prostate cancer status post prostatectomy 2020 with bilateral pelvic lymphadenectomy and radiation-Dr. Escalona and [facility].�
B12 deficiency.�
Diastolic heart failure with preserved ejection fraction.
Hyperlipidemia
Mild aortic stenosis
Lumbar spine disease
History of diverticulitis 2015
Renal calculi
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
Cataract surgery
Multiple myeloma
Chronic anemia
Chronic leukopenia
Essential hypertension
Diabetes mellitus type 2
Chronic pulmonary nodules
Plan:
Presentation with RUQ abdominal pain.
-Diverticulitis symptoms got significantly improved.
-Continue IV antibiotics.
-Bowel rest, diet advanced to LRD.
-Patient remained afebrile and nontachycardic at baseline.
-Appreciate colorectal surgery evaluation.
-Patient would benefit from outpatient colonoscopy with resolution of current symptoms.
Acute ANAI.
-Creatinine plateaued at 1.8.
-Currently euvolemic with no orthostasis, lightheadedness, shortness of breath, orthopnea.
-Potassium and sodium levels normalized. Follow BMP.
-Received IV Lasix 40 mg this a.m. by cardiology.
-Hold valsartan (nephrotoxic), metformin, and glipizide.
-IV fluid.
-Nephrology evaluation appreciated.
Acute hypoxemic respiratory failure.
-Currently stable respiratory status with O2 sat 98% on room air.
-Patient scheduled for right heart catheterization with Dr. Hodges for [facility], for pulmonary hypertension assessment.
-Prior studies including CT scan and VQ scan were negative for acute/chronic VTE disease.
-Recent CT chest with increased number of well-defined pulmonary nodules.
-PET scan June 2022 at [place] with stable/likely benign results.
-Outpatient oncology follow-up advised, patient may benefit from repeat PET scan.
-Pulmonary evaluation appreciated.
Acute on chronic heart failure with preserved ejection fraction.
-Patient with chronic RV dysfunction/heart failure with preserved EF on recent echo, suspected pulmonary hypertension due to aforementioned.
-Plan for right heart catheterization for in place with improving renal function.
-proBNP 5490 although patient is euvolemic with no shortness of breath, orthopnea etc.
-Hold IV Lasix and valsartan due to ongoing ANAI.
-Follow BMP and weight.
-Cardiology evaluation appreciated.
Multiple myeloma
-Hold pomalidomide and carfilzomib per oncology given current CHF exacerbation, acute diverticulitis likely worsened by above regimen.
-Continue prophylactic acyclovir
-Neutropenia
-Continue outpatient oncology follow-up.
Anemia of chronic disease.
-Current hemoglobin 8.6. Likely due to multiple myeloma, no evidence of bleeding.
-Monitor hemoglobin level with CBC in AM.
Chronic leukopenia
- Likely secondary to pomalidomide
-Hold for now.
Prostate cancer status post prostatectomy/radiation
-Continue tamsulosin.
Type 2 diabetes
-A1c 6.5
-Hold glipizide and metformin.
-Continue basal insulin with Accu-Cheks and sliding scale coverage.
Essential hypertension
-Hold valsartan.
-Continue prophylactic aspirin.
Vitamin B12 deficiency
-Continue vitamin B12 supplementation.
DVT prophylaxis
-Lovenox
Anticipated Discharge: 24 - 48 hours
Subjective/Interval History
-
Date of Service: September 12, 2023
Objective Data
-
Labs:
Laboratory Results
09/12/23
04:23
Sodium 135
Potassium 4.1
Chloride 109 H
Carbon Dioxide 23
BUN 27 H
Creatinine 1.8 H
Glucose 112 H
Calcium 7.2 L
Vital Signs:
Vital Signs
Temp Pulse Resp BP Pulse Ox
98.1 F 79 18 112/81 97
09/12/23 11:15 09/12/23 11:15 09/12/23 11:15 09/12/23 11:15 09/12/23 11:15
I&O
09/11/23 09/12/23 09/13/23
06:59 06:59 06:59
Intake Total 1390 / 1390 1060 / 1060 240 / 240
Balance 1390 / 1390 1060 / 1060 240 / 240
Review of Systems
-
History Source: Patient
Constitutional: Reports No Symptoms
Respiratory: Reports No Symptoms
Cardiac: Reports No Symptoms
Abdomen/GI: Reports No Symptoms
Genitourinary: Reports No Symptoms
Musculoskeletal: Reports No Symptoms
Skin: Reports No Symptoms
Neuro: Reports No Symptoms
Endocrine: Reports No Symptoms
Physical Exam
-
General: No Apparent Distress and Comfortable
HEENT: Normocephalic, Atraumatic, Moist Mucous Membranes and Anicteric
Respiratory: Clear to Auscultation; Negative Rhonchi or Crackles
Cardiac: Regular Rhythm and S1/S2
GI: Soft, Nontender, Nondistended, Normal Bowel Sounds, Distended and No Hepatosplenomegaly
Genito-urinary: No Costovertebral Tender
Musculoskeletal: No Clubbing, No Cyanosis and No Edema
Skin: Warm and Dry
Neuro: Awake, Alert, Oriented, AO x 3 and No Motor Deficits
Hematologic / Lymphatic: No Lymphadenopathy
Psych: Calm and Intact Judgement/Insight
Data Reviewed
-
Diagnostic Radiology: Image personally visualized and interpreted, Report Reviewed by me and Discussed with Physician
CT Scan: Image personally visualized and interpreted, Report Reviewed by me and Discussed with Physician
Ultrasound: Image personally visualized and interpreted, Report Reviewed by me and Discussed with Physician
Labs: Labs Reviewed by me and Discussed with Physician
Old Records: Reviewed
[2023-09-12 12:44] LABS: Glucose - Point of Care 99 mg/dl (70-99)
--- NOTE | 2023-09-12 14:23 | CM ---
Chart reviewed. Patient is independent of ADLS, lives with his in a 2 [address], 2 MP, 0 DME. 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 Patient currently with no needs. CM to follow
[2023-09-12 17:35] LABS: Glucose - Point of Care 107 mg/dl (70-99)
[2023-09-12] MEDS: LOVENOX SC (17:36)
[2023-09-12] MEDS: FLOMAX 0.400000000000000022 MG PO (18:28)
[2023-09-12 21:18] LABS: Glucose - Point of Care 113 mg/dl (70-99)
--- NOTE | 2023-09-12 23:52 | PTCARENOTE ---
Pt rec'd at beginning of shift awake,alert no c/o pain. Npo after mn for probable ht cath.Sinus on telemetry with BBB.
[2023-09-13] VITALS (10 sets, daily range): BP systolic 108–126; BP diastolic 59–75; BMI 31.2
[2023-09-13] MEDS: UNASYN IV ×4 (05:21→23:56)
[2023-09-13 05:58] LABS: Blood Urea Nitrogen 26 mg/dl (9-20); Calcium 7.7 mg/dl (8.4-10.2); Carbon Dioxide 26 mmol/L (22-30); Chloride 106 mmol/L (98-107); Estimated Creatinine Clearance 39 ml/min; Glucose 119 mg/dl (70-99); Potassium 4.1 mmol/L (3.5-5.1); Sodium 136 mmol/L (135-145); eGFR 39.01
[2023-09-13 08:30] LABS: Glucose - Point of Care 128 mg/dl (70-99)
[2023-09-13] MEDS: ASPIR LOW (ENTERIC COATED) 81 MG PO (08:30)
[2023-09-13] MEDS: TOPROL XL 25 MG PO (08:30)
[2023-09-13] MEDS: FLUSH (NSS) 1 FLUSH IV (08:31)
--- NOTE | 2023-09-13 09:28 | W.PN.CRS1 ---
Today's Communication / Plan
-
Continue low residue diet for couple of weeks.
He has a scheduled surveillance colonoscopy later this month and I advised him to contact Dr. Murillo to discuss the timing.
No plans for surgery, will follow as needed.
Assessment/Plan
-
Ascending colon diverticulitis and possible mild sigmoid colon diverticulitis.
Subjective Data
Subjective Data
Date of Service: September 13, 2023
His pain has almost completely resolved. His appetite is good and his bowels are functioning. He is tolerating low residue diet.
Objective Data
-
Vital Signs
Temp Pulse Resp BP Pulse Ox
97.8 F 80 20 112/59 94
09/13/23 07:12 09/13/23 07:30 09/13/23 07:12 09/13/23 07:15 09/12/23 23:22
Intake & Output
09/12/23 09/13/23 09/14/23
06:59 06:59 06:59
Intake Total 1060 / 1060 1180 / 1180
Balance 1060 / 1060 1180 / 1180
Intake:
Oral fluids 960 / 960 960 / 960
IV piggybacks 100 / 100 220 / 220
Other:
Number of approximated MODERATE 1 1
amounts of urine
Number of approximated LARGE 1
amounts of urine
Lab Results
09/10/23 02:48
09/13/23 05:13
Physical Exam
-
General: No Acute Distress
Abdomen: Soft, Non Distended and Non Tender
--- NOTE | 2023-09-13 09:32 | PTCARENOTE ---
Patient NPO x meds this morning, scheduled for RHC. at the bedside, patient offers no complaints.
--- NOTE | 2023-09-13 09:54 | W.PN.PUL.V3 ---
Today's Communication / Plan
-
Increase activity.
Right heart catheterization.
Outpatient pulmonary follow-up for nodules including cavitary one and potential need for PET scan and bronchoscopy
Assessment
-
73-year-old male with history of prostate cancer status post prostatectomy and radiation therapy who also has a history of multiple myeloma receiving Krypolis and Pomalyst, diastolic CHF and diabetes who presented with right upper abdominal pain and
recent workup for pulmonary hypertension including CT chest showed multiple pulmonary nodules slightly increased in size-patient was to have an appointment with Dr. Marks on 09/10/23 now in the hospital pulmonary is consulted 09/10/23.
Assessment
Abdominal pain/diverticulitis
Volume overload with elevated proBNP
Multiple pulmonary nodules-some increased in size
ANAI-serum creatinine 2.0
Pulm hypertension with negative workup for venous thromboembolic disease (CT chest and VQ scan) for right heart catheterization
Hypokalemia
Hyponatremia
Bcoowe-gozdvfmrkz-hinjsgevdc 8.6
Leukopenia-WBC 3.6
Fatty liver infiltration
Mild hyperglycemia-171
Conditions present prior to admission:
Prostate cancer status post prostatectomy 2020 with bilateral pelvic lymphadenectomy and radiation-Dr. Escalona and [facility].
Multiple myeloma.
Diabetes.
B12 deficiency.
Diastolic CHF.
Hypertension.
Hyperlipidemia
Pulmonary hypertension.
Diastolic dysfunction with preserved left ventricular function
Mild aortic stenosis
Lumbar spine disease
History of diverticulitis 2016
Renal calculi
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
Cataract surgery
Plan
His abdominal exam continues to improve with antibiotics
His most recent acute decompensation appears to be related mostly to his acute diverticulitis
Once again, his CT chest was personally reviewed-continues to have numerous small well-defined pulmonary nodules but overall increased in size
Last PET scan was June 2022-he was told at [facility] that things were stable and likely benign
Patient was to have appointment with Dr. Marks in the office to review these nodules
Once medically stabilized would likely benefit from PET scan, close radiographic follow-up and consideration towards biopsy especially if oncology in need of additional tissue
Patient follows up with oncology closely
Current medications for multiple myeloma may have some side effect including causing congestion
Dr. Vargas briefly spoke to him about CAR-T technology recently approved for multiple myeloma-[employer]
Nephrology following-correspondence reviewed
Continue to replace electrolytes
Pulmonary hypertension does not appear to be primary pulmonary related-negative for acute and chronic venous thromboembolic disease, no obvious interstitial lung disease
Right heart catheterization 09/13/[address] Hodges
Pulmonary vasodilators per cardiology-Pulmonary hypertension may be related to hematologic medications including Pomalyst
Cultures unrevealing-last cultures nasal swab 08/30/23
Empiric antibiotics
Follow abdominal exam-improved.
Colorectal surgery following-correspondence reviewed.
Oncology following-correspondence reviewed
Follow hemoglobin-macrocytic and currently 8.6-likely related to multiple myeloma-no signs of acute blood loss
Monitor blood sugar
Insulin supplementation as needed
DVT prophylaxis-on Lovenox
Nutrition after bowel rest for diverticulitis
Reviewed with nursing.
Pulmonary will sign off- Please call with questions
Outpatient follow-up with Dr. Marks as outlined above
Diagnostic data:
Chest x-ray 03/12/2015-NAD
Chest x-ray 10/22/2022-left lower lobe pneumonia
Chest x-ray 09/09/2023-hypoinflated, basilar atelectasis, no evidence for right-sided rib fracture
CT abdomen and pelvis 06/30/2020-few tiny pulmonary nodules developed since 2018, 2.2 mm right lower lobe, 2.7 mm right lower lobe, 1.2 mm right lower lobe and 3 mm right lower lobe, chronic diverticulosis
CT chest 08/30/2023-numerous small well-defined pulmonary nodules mainly in the upper to mid lungs relatively sparing the lower lungs have increased in size and number when compared to PET scan June 2022, cavitation of a nodule in the apical
region of the right upper lobe, diffuse fatty infiltration
CT abdomen 09/09/2023-mild to moderate dependent atelectasis posterior right lung, several small well-defined pulmonary nodules in the right lung appears unchanged from previous CT, fatty infiltration of the liver, no abscess identified, right-sided
colonic diverticulitis
PET scan 12/22/2020-FDG avid mixed lytic sclerotic expansile lesion lateral left sixth ribs suspicious for metastatic disease, FDG avid sclerotic focus proximal right tibia suspicious for metastatic disease, T6/7 vertebral area also suspicious as
well as mildly enlarged left axillary lymph nodes
PET scan 06/21/2022-recurrent prostate cancer and prostatectomy surgical bed, moderate number of new small subcentimeter solid nodules in the lungs suspicious for metastatic disease
VQ scan 09/05/2023-low probability for pulm embolism
Echocardiogram 03/29/2023-EF 60-65%, trace mitral regurgitation, mildly stenotic aortic valve
Subjective Data
-
Date of Service:
Date of Service: September 13, 2023
Chief Complaint: Pulmonary Follow Up and Dyspnea Follow Up
Subjective:
. Abdominal pain improved, no complaints shortness of breath, chest pain, productive cough
Review of Systems
General: Other ( per HPI)
Objective Data
Data Reviewed
Vital Signs / I&O:
Vital Signs
Temp Pulse Resp BP Pulse Ox
97.8 F 80 20 112/59 94
09/13/23 07:12 09/13/23 07:30 09/13/23 07:12 09/13/23 07:15 09/12/23 23:22
Intake and Output
09/12/23 09/13/23 09/14/23
06:59 06:59 06:59
Intake Total 1060 / 1060 1180 / 1180
Balance 1060 / 1060 1180 / 1180
SaO2: 94
Nasal Cannula flow liters per minute: 1
Physical Exam
General: Respiratory Distress (n) and Comfortable
HEENT: Normocephalic, Anicteric and Moist Mucous Membranes
Cardiovascular: Regular Rhythm
Respiratory: Wheeze (n), Crackles (n), Rhonchi (n), Non-Labored Respirations, Accessory Resp Muscle Use (n) and Stridor (n)
GI: Non Distended and Non Tender
Neurology: Awake, Alert and AO x 3
Skin: Warm, Good Color, Cyanosis (n) and Jaundice (n)
Labs/Micro/Reports
Lab Data
09/10/23 02:48
09/13/23 05:13
--- NOTE | 2023-09-13 10:08 | PTCARENOTE ---
Report given to the canvas shop laborer, patient sent in his bed for RHC.
--- NOTE | 2023-09-13 11:17 | ITS.CL.CATH ---
[employer] - Catheterization
Cardiac Catheterization
Procedure Report:
RIGHT HEART CATHETERIZATION
Date of Procedure: September 13, 2023
Referring: Dr. Ginger Lal
INDICATION: Right heart failure, multiple myeloma on chemotherapy
Hemodynamics (mmHg):
RA (m) : 13
RV (s/d,m) : 77/12, 17
PA (s/d, m) : 77/23, 48
PCWP (m) : 18
Cardiac Output : 5.2 L/min
Cardiac Index : 2.5 L/min/m-2
Systemic vascular resistance: 13.5 Wood units or 1077 mzwrf-nzx-ay(-5)
Pulmonary vascular resistance: 5.8 Wood units or 461 rfstk-jpl-nc(-5)
RADIATION SUMMARY: Fluoro Time (min): 1, Dose (mGy): 11, DAP (Gy.cm2) : 1.8
CONCLUSION:
1. Postcapillary pulmonary hypertension with hemodynamics most consistent with group 2 and group 5 with mean PA pressure of 48 mmHg, pulmonary capillary wedge pressure 18 mmHg and PVR 5.8 Wood units.
RECOMMENDATIONS:
1. Dr. Lal will evaluate with planned initiation of sildenafil during this hospital stay.
Copy to: Dr. Ginger Lal
--- NOTE | 2023-09-13 11:26 | W.PN.NEPH.PH ---
Today's Communication / Plan
-
follow bmp
lasix 40mg IV daily
Assessment/Plan
-
Assessment
Multiple myeloma on Krypolis and Pomalyst
Right ventricular overload on recent echocardiogram but with preserved ejection fraction
Diabetes mellitus type 2
Acute kidney injury
Hyperkalemia
Hyponatremia
Anemia
Right-sided abdominal pain
Plan
Cr unchanged at 1.8 ,
s/p RHC PWCP 18, CI 2.5
lasix 40mg IV provided daily (discussed with cardiology)
Eder inconclusive at this time. Appears to be euvolemic at this time. He has no resting shortness of breath or orthopnea. No orthostasis or lightheadedness.
Patient being treated with abx for diverticulitis with improvement in abd pain and diet advancing
Please avoid nephrotoxic agents (valsartan, etc) and dose all medications for GFR
We will follow his basic metabolic panel along with you.
-
-
Date of Service: September 13, 2023
CC / HPI / ROS
-
Chief Complaint:
ANAI
History of Present Illness:
ANAI bl 0.8, up to 2, down to 1.8
hemodynamically stable
s/p RHC 09/13/23, PCWP ~18
Review of Systems:
weights down
abd pain improved
no fevers
Labs
-
Labs:
WBC 3.6 10^3/uL (4.8-10.8) L 09/10/23 02:48
RBC 2.65 10^6/uL (4.70-6.10) L 09/10/23 02:48
Hgb 8.6 g/dL (13.0-18.0) L 09/10/23 02:48
Hct 26.5 % (39.0-52.0) L 09/10/23 02:48
Plt Count 220 10^3/uL (130-400) 09/10/23 02:48
Sodium 136 mmol/L (135-145) 09/13/23 05:13
Potassium 4.1 mmol/L (3.5-5.1) 09/13/23 05:13
Chloride 106 mmol/L (98-107) 09/13/23 05:13
Carbon Dioxide 26 mmol/L (22-30) 09/13/23 05:13
BUN 26 mg/dl (9-20) H 09/13/23 05:13
Creatinine 1.8 mg/dL (0.7-1.3) H 09/13/23 05:13
eGFR 39.01 09/13/23 05:13
Glucose 119 mg/dl (70-99) H 09/13/23 05:13
Calcium 7.7 mg/dl (8.4-10.2) L 09/13/23 05:13
Kmk-Q-Qfwuxipfocs Pept 2910 pg/ml 09/12/23 04:23
Albumin 3.2 g/dl (3.5-5.0) L 09/09/23 12:27
Physical Exam
-
Vital Signs:
Vital Signs
Temp Pulse Resp BP Pulse Ox
97.8 F 80 20 112/59 94
09/13/23 07:12 09/13/23 07:30 09/13/23 07:12 09/13/23 07:15 09/13/23 09:54
Cardiovascular:: Regular rate and rhythm
Respiratory:: Bilateral: Coarse
Lung Excursion:: Normal
Abdomen:: Nontender and Soft
Bowel Sounds:: Normal
Extremity Edema:: +1: Bilateral: (trace)
Flowers Catheter: No
--- NOTE | 2023-09-13 11:36 | PTCARENOTE ---
Patient returned from the [employer] at 1100 after RHC. Right brachial dressing dry and intact with strong brachial and radial pulses. Monitoring VS, pulse ox 98% on RA. Dr. Hodges in to speak with the patient and his family with results. Dr. Valencia
also in to see the patient and will given lasix IV as ordered.
--- NOTE | 2023-09-13 11:43 | W.PN.ONC ---
Today's Communication / Plan
-
Mgmt of diverticulitis per CRS, liquid diet for now, antibiotics
Cardiac catheterization completed results pending
Monitor CBC not checked since 09/09
Monitor ANAI, likely from Lasix, though progression of myeloma could be contributory
Discontinued kyprolis and pomalyst stopped for progression + new cardiotoxicity
Will plan to update myeloma studies again in 1-2 weeks
Further treatment plans TBD based on results of cardiac testing and discussions w/ Dr. Solo at [facility]
DVT ppx
Impression
Impression
Acute right-sided abdominal pain, Acute diverticulitis
Multiple myeloma
Hx [place] 9 prostate cancer s/p prostatectomy/XRT (2020)
Congestive heart failure
Hyponatremia
Acute kidney injury
Acute right-sided abdominal pain
Acute diverticulitis
Abdominal distention
Pulmonary HTN for right heart cath this week
Subjective/Objective
Subjective/Objective
Seen post catheterization. Alert and awake
Vital Signs:
Vital Signs
Temp Pulse Resp BP Pulse Ox
97.8 F 80 20 112/59 94
09/13/23 07:12 09/13/23 07:30 09/13/23 07:12 09/13/23 07:15 09/13/23 09:54
PE:
HEENT: no scleral icterus
Heart: Regular
Lungs clear without rales or rhonchi
Extremities: without pretibial edema
Lab Results:
Laboratory Data
WBC 3.6 10^3/uL (4.8-10.8) L 09/10/23 02:48
Hgb 8.6 g/dL (13.0-18.0) L 09/10/23 02:48
Plt Count 220 10^3/uL (130-400) 09/10/23 02:48
eGFR 39.01 09/13/23 05:13
[2023-09-13 12:10] LABS: Glucose - Point of Care 110 mg/dl (70-99)
[2023-09-13] MEDS: ZOVIRAX 400 MG PO ×2 (12:30→20:51)
[2023-09-13] MEDS: VITAMIN B-12 1000 MCG PO (12:31)
[2023-09-13] MEDS: VITAMIN D3 (cholecalciferol) 25 MCG PO (12:31)
[2023-09-13] MEDS: LASIX 40 MG IV (14:09)
--- NOTE | 2023-09-13 14:53 | W.PN.HOSP.TC ---
Today's Communication/Plan
-
Diet has been advanced
Continue IV antibiotics
IV Lasix.
Initiated on Revatio
Assessment / Plan
Assessment / Plan
Impression:
Acute on chronic sinus tachycardia
Significantly improved diverticulitis symptoms.
Acute ANAI with plateaued creatinine at 1.8.
Acute hypoxemic respiratory failure.
Acute on chronic heart failure with preserved ejection fraction.
Conditions [place]:
Prostate cancer status post prostatectomy 2020 with bilateral pelvic lymphadenectomy and radiation-Dr. Escalona and [facility].�
B12 deficiency.�
Diastolic heart failure with preserved ejection fraction.
Hyperlipidemia
Mild aortic stenosis
Lumbar spine disease
History of diverticulitis 2015
Renal calculi
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
Cataract surgery
Multiple myeloma
Chronic anemia
Chronic leukopenia
Essential hypertension
Diabetes mellitus type 2
Chronic pulmonary nodules
Plan:
Presentation with RUQ abdominal pain.
-Diverticulitis symptoms got significantly improved.
-Continue IV antibiotics.
-Bowel rest, diet advanced to LRD.
-Patient remained afebrile and nontachycardic at baseline.
-Appreciate colorectal surgery evaluation.
-Patient would benefit from outpatient colonoscopy with resolution of current symptoms.
Acute ANAI.
-Creatinine plateaued at 1.8.
-Currently euvolemic with no orthostasis, lightheadedness, shortness of breath, orthopnea.
-Potassium and sodium levels normalized. Follow BMP.
-Received IV Lasix 40 mg this a.m. by cardiology.
-Hold valsartan (nephrotoxic), metformin, and glipizide.
-IV fluid.
-Nephrology evaluation appreciated.
Acute hypoxemic respiratory failure secondary to severe pulmonary hypertension
Acute on chronic heart failure preserved EF
-Currently stable respiratory status with O2 sat 98% on room air.
-Patient scheduled for right heart catheterization with Dr. Hodges for [place], for pulmonary hypertension assessment.
-Prior studies including CT scan and VQ scan were negative for acute/chronic VTE disease.
-Recent CT chest with increased number of well-defined pulmonary nodules.
-PET scan June 2022 at [facility] with stable/likely benign results.
-RHC 09/12 findings consistent with severe pulmonary hypertension with PAP 77 mmHg. PCWP 18, CI 2.5
Concern for carfilzomib induced pulmonary hypertension. Currently off.
Single dose of IV Lasix 40 mg provided on 09/12.
Initiated on Revatio.
Multiple myeloma
-Hold pomalidomide and carfilzomib per oncology given current CHF exacerbation, acute diverticulitis likely worsened by above regimen.
-Continue prophylactic acyclovir
-Neutropenia
-Continue outpatient oncology follow-up.
Anemia of chronic disease.
-Monitor hemoglobin level with CBC in AM.
Chronic leukopenia
- Likely secondary to pomalidomide
-Hold for now.
Prostate cancer status post prostatectomy/radiation
-Continue tamsulosin.
Type 2 diabetes
-A1c 6.5
-Hold glipizide and metformin.
-Continue basal insulin with Accu-Cheks and sliding scale coverage. Remains euglycemic. This is likely reflection of decreased renal clearance.
Essential hypertension
-Hold valsartan.
-Continue prophylactic aspirin.
Vitamin B12 deficiency
-Continue vitamin B12 supplementation.
DVT prophylaxis
-Lovenox
Anticipated Discharge: 24 - 48 hours
Subjective/Interval History
-
Date of Service: September 13, 2023
Objective Data
-
Labs:
Laboratory Results
09/13/23
05:13
Sodium 136
Potassium 4.1
Chloride 106
Carbon Dioxide 26
BUN 26 H
Creatinine 1.8 H
Glucose 119 H
Calcium 7.7 L
Vital Signs:
Vital Signs
Temp Pulse Resp BP Pulse Ox
98.0 F 76 20 126/72 98
09/13/23 12:14 09/13/23 12:00 09/13/23 12:14 09/13/23 12:00 09/13/23 12:14
I&O
09/12/23 09/13/23 09/14/23
06:59 06:59 06:59
Intake Total 1060 / 1060 1180 / 1180 120 / 120
Balance 1060 / 1060 1180 / 1180 120 / 120
Physical Exam
-
General: Well Developed and No Apparent Distress
HEENT: Normocephalic, Atraumatic and Moist Mucous Membranes
Respiratory: Clear to Auscultation
Cardiac: Regular Rhythm and S1/S2; Negative Murmur, Rub or Gallop
GI: Soft, Nontender, Nondistended and Normal Bowel Sounds; Negative Organomegaly
Rectal: Deferred by Provider
Musculoskeletal: No Clubbing, No Cyanosis and No Edema
Skin: Negative Rash
Neuro: Nonfocal/Grossly Intact
--- NOTE | 2023-09-13 15:00 | PTCARENOTE ---
VSS, dressing right brachial area dry and intact, no hematoma noted, strong radial and brachial pulses. Patient was oob to the bathroom, tolerated a light lunch, resting comfortably. New IV site placed by IV team and IV lasix given as ordered.
[2023-09-13] MEDS: REVATIO 20 MG PO ×2 (15:55→22:27)
[2023-09-13 17:00] LABS: Glucose - Point of Care 114 mg/dl (70-99)
--- NOTE | 2023-09-13 18:24 | W.PN.UPDATE ---
Update Note
Progress Note Update
Had a long discussion with patient tonight regarding right heart catheterization.
Hemodynamics (mmHg):
RA (m) : 13
RV (s/d,m) : 77/12, 17
PA (s/d, m) : 77/23, 48
PCWP (m) : 18
Cardiac Output : 5.2 L/min
Cardiac Index : 2.5 L/min/m-2
Systemic vascular resistance: 13.5 Wood units or 1077 pbend-tye-cs(-5)
Pulmonary vascular resistance: 5.8 Wood units or 461 zfdgj-kwf-to(-5)
Patient with predominantly precapillary pulmonary arterial hypertension and after volume resuscitation earlier in the admission some minor contribution from postcapillary pulmonary hypertension.
Who group 5 predominantly related to chemotherapy as suspected etiology.
Patient started on Revatio 20 mg 3 times daily. We discussed this at great length. As an outpatient if tolerating treatment we will also proceed with initiation of endothelin receptor antagonist.
Have discussed plan with pulmonary, oncology and primary service. All questions answered. I will make follow-up appointment with me 1120 on September 19
[2023-09-13] MEDS: FLOMAX 0.400000000000000022 MG PO (18:32)
[2023-09-13] MEDS: LOVENOX SC (18:32)
[2023-09-13 21:24] LABS: Glucose - Point of Care 120 mg/dl (70-99)
--- NOTE | 2023-09-13 22:55 | PTCARENOTE ---
assumed care of patient at the change of shift. family and friends at the bedside. patient denies any pain. no abdominal pain. improved appetite as well per patient. SR on tele with a BBB 70s-80s. bp stable. clear, diminished lungs at the bases.
denies any sob. ambulating in the room independently. answered all questions. patient eager to go home tomorrow.
[2023-09-14 04:41] VITALS: BP 107/63
[2023-09-14 05:09] LABS: Blood Urea Nitrogen 23 mg/dl (9-20); Calcium 7.7 mg/dl (8.4-10.2); Carbon Dioxide 24 mmol/L (22-30); Chloride 108 mmol/L (98-107); Estimated Creatinine Clearance 37 ml/min; Glucose 106 mg/dl (70-99); Potassium 3.8 mmol/L (3.5-5.1); Sodium 133 mmol/L (135-145); eGFR 36.56
[2023-09-14 06:00] VITALS: BMI 30.9
[2023-09-14] MEDS: UNASYN IV ×2 (06:22→11:58)
[2023-09-14 07:05] VITALS: BP 110/60
[2023-09-14 07:09] LABS: Glucose - Point of Care 120 mg/dl (70-99)
--- NOTE | 2023-09-14 08:14 | PN.CDI ---
Addendum entered and electronically signed by Chico Rodríguez MD 09/21/23 17:31:
No further comments
Original Note:
CDI
- -
CDI:
Physician Documentation Request
Admit Date: 09/09/23 17:00
Dear Doctor Marcos,
Clinical Indicators:
Patient admitted with acute on chronic diastolic heart failure.
09/08 H & P, 'Acute borderline hypoxemic respiratory insufficiency--pulse ox 92% on room air'.
09/10 RN note, 'pt woken from sleep. O2 88-90% RA. Placed on 1L NC, 95%.
09/12 PN' Acute hypoxemic respiratory failure secondary to severe pulmonary hypertension.'
Maximum 02 requirements: 1 L NC.
Recognized standard criteria for respiratory failure includes:
(Source: [facility] Hospitalist May 2013)
ABGs (1 or more)
�PO2 <60 or RA SpO2 <91%
�PcO2 >50 and pH <7.35
�pO2 decrease or pcO2 increase by 10 mmHg from baseline if known Symptoms:
�Tachypnea, SOB, dyspnea
�Pallor or cyanosis
�Anxiety or restlessness
�Use of accessory muscles
�Retractions (grunting in newborns)
�Unable to speak in complete sentences
Supplemental O2 requirement of 40% (5LPM) or more Intubation is not required
Based on the above information and the recognized standard for respiratory failure could you please verify this diagnoses is still accurate and reflective of the patient�s condition to ensure quality of the medical record.
Please clarify in the Progress Notes:
�Respiratory failure is/was present and is a clinical diagnosis based on .
(please include this additional support in the medical record).
�After study, respiratory failure has been ruled out.
�Other
Use of terms such as suspected, likely, concern for, or probable (associated with a specific diagnosis that is being evaluated, monitored, or treated as if it exists) are acceptable and can be coded in the inpatient setting, when documented at the
time of discharge.
Thank you,
GABRIEL Barroso RN
CDI Specialist
available via tiger text
Please use your independent medical judgment in providing your response.
[2023-09-14] MEDS: VITAMIN D3 (cholecalciferol) 25 MCG PO (08:22)
[2023-09-14] MEDS: TOPROL XL 25 MG PO (08:22)
[2023-09-14] MEDS: ZOVIRAX 400 MG PO (08:22)
[2023-09-14] MEDS: VITAMIN B-12 1000 MCG PO (08:22)
[2023-09-14] MEDS: ASPIR LOW (ENTERIC COATED) 81 MG PO (08:22)
[2023-09-14] MEDS: REVATIO 20 MG PO ×2 (08:22→12:33)
[2023-09-14] MEDS: LASIX 40 MG IV (08:23)
[2023-09-14 10:54] LABS: % Basophils 0.9 % (0-2); % Eosinophils 0.9 % (0-6); % Immature Granulocytes 0.9 % (0-0.5); % Lymphocytes 40.2 % (20.5-51.1); % Neutrophils 47.1 % (42.2-75.2); Absolute Lymphocytes 0.9 10^3/uL (1.2-3.4); Absolute Monocytes 0.2 10^3/uL (0.1-0.6); Hematocrit 26.3 % (39.0-52.0); Hemoglobin 8.9 g/dL (13.0-18.0); Mean Corp Hgb Conc. 33.8 g/dL (33.0-37.0); Mean Corpuscular Hgb 33.2 pg (27.0-31.0); Mean Corpuscular Volume 98.1 fL (80.0-94.0); Mean Platelet Volume 10.2 fL (7.4-10.4); Nucleated Red Blood Cells % 0 % (-); Platelet Count 162 10^3/uL (130-400); Red Blood Cell Count 2.68 10^6/uL (4.70-6.10); Red Cell Dist. Width 14.8 % (11.5-14.5)
[2023-09-14 10:58] LABS: White Blood Cell Count 2.2 10^3/uL (4.8-10.8)
--- NOTE | 2023-09-14 11:04 | CM ---
Chart reviewed. Patient is independent of ADLS, lives with his in a 2 STH, 2 MP, 0 DME. Patient currently with no discharge needs. Plan is for the patient to return home.
--- NOTE | 2023-09-14 11:35 | W.DS.TRANS ---
DC Summary - Thermal Intelligence Analyst
-
Discharge Instructions:
Sleep Apnea Risk Intermediate
Discharge Diagnosis/Procedures CHF
Pulmonary HTN
MM
CKD
Acute Diverticulitis
Diet 2 Gram Sodium,Diabetic, Carb Controlled,Low
Residue
Additional Diets Fluid restriction 50 to 55 ounces
Blood Work BMP and CBC in one week
Specialty Instructions Weigh Daily
Instructions:
Stand-Alone Forms:
Changes to Home Medications: Yes
Discharge Medications:
DC Medications w/original date entered in [place]
aspirin 81 mg tablet,delayed release 81 mg PO DAILY Blood clot prevention/tx ##0 03/12/15
red yeast rice 600 mg tablet 1,200 mg PO DAILY Supplement 11/13/15
cholecalciferol (vitamin D3) 25 mcg (1,000 unit) tablet 1,000 units PO DAILY Supplement 08/20/20
acyclovir 400 mg tablet 400 mg PO BID Infection 10/22/22
coQ10 (ubiquinol) 100 mg capsule 100 mg PO DAILY Supplement 10/22/22
cyanocobalamin (vitamin B-12) 1,000 mcg tablet 1,000 mcg PO DAILY Supplement 10/22/22
denosumab 120 mg/1.7 mL (70 mg/mL) subcutaneous solution (Xgeva) 120 mg SC [id number] Cancer 10/22/22
dexamethasone 4 mg tablet 20 mg PO UD Anti-inflammatory 10/22/22
loratadine 10 mg tablet (Claritin) 10 mg PO DAILY PRN allergies 10/22/22
tamsulosin 0.4 mg capsule (Flomax) 0.4 mg PO QPM Urinary issue 10/22/22
zolpidem 5 mg tablet (Ambien) 5 mg PO HS PRN insomnia 01/15/23
furosemide 80 mg tablet (Lasix) 80 mg PO DAILY #60 tabs 08/31/23
amoxicillin 875 mg-potassium clavulanate 125 mg tablet 1 tab PO Q12H #20 tabs 09/14/23
metoprolol succinate 25 mg tablet,extended release 24 hr 25 mg PO DAILY #60 tabs 09/14/23
sildenafil (pulm.hypertension) 20 mg tablet 20 mg PO TID #90 tabs 09/14/23
Home Medication Changes
Valsartan, Metformin, glipizide stopped
Toprol, Revatio initiated
Complete total of 14 days course of antibiotics
Pending Results: No
[2023-09-14 11:47] LABS: Glucose - Point of Care 139 mg/dl (70-99)
--- NOTE | 2023-09-14 11:59 | W.PN.ONC ---
Today's Communication / Plan
-
New onset right heart failure hold therapeutic intervention for MM
Patient appears to be responding to cardiac Rx manipulation
Agree with 10,000 units of Procrit today
Follow-up in the office in 1 week for Aranesp
Monitor ANAI, likely from Lasix, though progression of myeloma
Will plan to update myeloma studies again in 1-2 weeks; further treatment plans TBD based on results of cardiac testing and discussions w/ Dr. Solo at [facility]
Anticipate discharge
Impression
Impression
Acute right-sided abdominal pain, Acute diverticulitis
Multiple myeloma
Hx [place] 9 prostate cancer s/p prostatectomy/XRT (2020)
Congestive heart failure
Hyponatremia
Acute kidney injury
Acute right-sided abdominal pain
Acute diverticulitis
Abdominal distention
Pulmonary HTN for right heart cath this week
Subjective/Objective
Subjective/Objective
No new complaints anxious for discharge.
Vital Signs:
Vital Signs
Temp Pulse Resp BP Pulse Ox
97.9 F 73 12 110/60 92
09/14/23 07:03 09/14/23 07:30 09/14/23 07:03 09/14/23 07:05 09/14/23 08:30
Physical examination: Unchanged
Lab Results:
Laboratory Data
WBC 2.2 10^3/uL (4.8-10.8) L* 09/14/23 10:28
Hgb 8.9 g/dL (13.0-18.0) L 09/14/23 10:28
Plt Count 162 10^3/uL (130-400) D 09/14/23 10:28
eGFR 36.56 09/14/23 04:41
[2023-09-14 12:08] VITALS: BP 102/48
[2023-09-14] MEDS: RETACRIT 10000 UNITS SC (12:46)
--- NOTE | 2023-09-14 13:26 | W.DS.TRANS ---
DC Summary - Mental Health Worker
-
Discharge Instructions:
Sleep Apnea Risk Intermediate
Discharge Diagnosis/Procedures CHF
Pulmonary HTN
MM
CKD
Acute Diverticulitis
Diet 2 Gram Sodium,Diabetic, Carb Controlled,Low
Residue
Additional Diets Fluid restriction 50 to 55 ounces
Blood Work BMP and CBC in one week
Specialty Instructions Weigh Daily
Instructions:
Stand-Alone Forms: DC Instructions- Cath/EP Lab
Changes to Home Medications: Yes
Discharge Medications:
DC Medications w/original date entered in [employer]
aspirin 81 mg tablet,delayed release 81 mg PO DAILY Blood clot prevention/tx ##0 03/12/15
red yeast rice 600 mg tablet 1,200 mg PO DAILY Supplement 11/13/15
cholecalciferol (vitamin D3) 25 mcg (1,000 unit) tablet 1,000 units PO DAILY Supplement 08/20/20
acyclovir 400 mg tablet 400 mg PO BID Infection 10/22/22
coQ10 (ubiquinol) 100 mg capsule 100 mg PO DAILY Supplement 10/22/22
cyanocobalamin (vitamin B-12) 1,000 mcg tablet 1,000 mcg PO DAILY Supplement 10/22/22
denosumab 120 mg/1.7 mL (70 mg/mL) subcutaneous solution (Xgeva) 120 mg SC [id number] Cancer 10/22/22
dexamethasone 4 mg tablet 20 mg PO UD Anti-inflammatory 10/22/22
loratadine 10 mg tablet (Claritin) 10 mg PO DAILY PRN allergies 10/22/22
tamsulosin 0.4 mg capsule (Flomax) 0.4 mg PO QPM Urinary issue 10/22/22
zolpidem 5 mg tablet (Ambien) 5 mg PO HS PRN insomnia 01/15/23
furosemide 80 mg tablet (Lasix) 80 mg PO DAILY #60 tabs 08/31/23
amoxicillin 875 mg-potassium clavulanate 125 mg tablet 1 tab PO Q12H #20 tabs 09/14/23
metoprolol succinate 25 mg tablet,extended release 24 hr 25 mg PO DAILY #60 tabs 09/14/23
sildenafil (pulm.hypertension) 20 mg tablet 20 mg PO TID #90 tabs 09/14/23
Home Medication Changes
Pending Results: No
--- NOTE | 2023-09-14 13:27 | W.DCSUMMARY ---
Documented by User: Geovanny Park MD, Resident 09/14/23 15:39
Discharge Summary
Discharge Data
Date of Admission: 09/09/23
Date of Discharge: 09/14/23
-
Pending Results: No
Hospital Course
This is a 73-year-old male who was recently discharged from the hospital after treatment for acute heart failure with preserved ejection fraction who presented 9 days after discharge with severe right upper quadrant abdominal pain that does not
radiate. He has a past medical history of hypertension, diverticulitis, prostate cancer s/p prostatectomy, and multiple myeloma. Initial workup in the ED with CT scan with oral contrast demonstrated right-sided colonic diverticulitis with no
evidence of free intraperitoneal air. His chest x-ray demonstrated linear atelectasis and abdominal ultrasound consistent with hepatosplenomegaly but no acute biliary or hepatic issues. Patient has ongoing evaluation and treatment with IV Lasix by
his overhead garage door hanger in preparation for scheduled right heart cath for possible pulmonary hypertension workup.
Patient was seen in consultation with pulmonology, cardiology, colorectal surgery, oncology and nephrology.
Diverticulitis:
Patient's workup in the ED with CT scan showing acute diverticulitis of the ascending colon and small segment of the sigmoid colon without free air or abscess. He was admitted for bowel rest and IV antibiotics with Unasyn. His abdominal pain
improved with antibiotics and his diet was upgraded to clear liquid and subsequently to LRD. Patient was advised to follow-up with Dr. Murillo and schedule surveillance colonoscopy and to continue low residue diet for a couple of weeks. Patient
remained afebrile, tolerating low residual diet with complete resolution of abdominal pain. Patient has been transitioned to oral Augmentin for the next 2 weeks to complete antibiotic course.
HFpEF:
Patient has a history of heart failure with preserved ejection fraction, followed by Dr. Lal with negative workup for PE including CT of chest and VQ scan. He was scheduled for right heart cath [employer] and was placed on IV Lasix by cardiology in
anticipation for the procedure. Patient presented to the ED with worsening renal function with rising creatinine due to IV Lasix. His IV Lasix, and other nephrotoxic medications like valsartan, metformin and glipizide were held with improvement of
function. His carfilzomib and pomalidomide we also held which was thought to be contributing to the pulmonary hypertension. Over the course of 4 days, his renal function improved with creatinine plateaued at 1.9. He underwent an uneventful right
heart catheterization and initiation of Toprol by cardiology. His right heart cath on 09/12 was consistent with severe pulmonary hypertension PAP 77 mmHg. PCWP 18, CI 2.5. Patient was started on Revatio 20 mg 3 times daily and his outpatient dose
of Lasix 80 mg daily and is currently tolerating medications. Patient currently does not have any chest pain, shortness of breath, edema, and is currently euvolemic. Patient is advised to follow-up outpatient with Dr. Lal for further workup
and possible initiation of endothelin receptor antagonist. He is also advised to follow-up with outpatient oncology for further monitoring and management of his multiple myeloma.
Multiple myeloma:
Patient's new onset right heart failure and acute diverticulitis thought to be exacerbated by multiple myeloma intervention. Carfilzomib and pomalidomide on hold by oncologist. Patient advised to follow-up outpatient with oncology in 1 to 2 weeks
for further treatment plans and further discussions with Dr. Solo at [facility].
CKD 3B:
Patient presented with worsening renal function likely due to IV Lasix. His creatinine trended down plateaued at 1.9 with IV fluid and hold on nephrotoxic regimens. Patient was seen in consultation with nephrology. S/p C, IV Lasix was initiated
with close monitoring of renal function. Patient is currently euvolemic with no orthopnea or shortness of breath at rest. Patient currently denies orthostasis, lightheadedness, and is hemodynamically stable for discharge. Patient will follow-up
outpatient with nephrology for BMP in 1 to 2 weeks.
Type 2 diabetes:
Patient with current A1c of 6.5. He remained euglycemic while in the hospital with hold on his glipizide and metformin. Patient is now being discharged with current hold on the above medications and advised to monitor his daily glucose, and
follow-up with his primary to determine if he needs a reduced dose of glipizide only.
Discharge Plan
-
Patient Disposition: Home (Routine Discharge)
Discharge Diagnosis/Procedures: CHF
Pulmonary HTN
MM
CKD
Acute Diverticulitis
Condition: Good
Diet: 2 Gram Sodium, Low Residue and Diabetic, Carb Controlled
Additional Diets: Fluid restriction 50 to 55 ounces
Blood Work: BMP and CBC in one week
Specialty Instructions: Weigh Daily- Call MD for wt gain/loss 3 lbs overnight/5 lbs in 1 week
Stand Alone Forms: DC Instructions- Cath/EP Lab
Referrals:
April Marks MD [Active] - in one to two weeks (Assess CPAP, decide whether PET scan as needed or biopsy needed)
Eloy Hunter MD [Family Provider] - in one week
Ginger Lal MD [Active] - 09/20/23 11:20 am (Office [facility] at [facility])
Additional Discharge Medication Instructions: Stop Valzartan, Metformin and Glipizide.
Stop Pomalyst.
Prescriptions:
New
metoprolol succinate 25 mg Tablet Extended Release 24 Hr
25 mg PO DAILY Qty: 60 0RF
sildenafil (pulm.hypertension) 20 mg Tablet
20 mg PO TID Qty: 90 0RF
amoxicillin-pot clavulanate 875-125 mg tablet
1 tab PO Q12H Qty: 20 0RF
Continued
aspirin 81 MG tablet,delayed release (DR/EC)
81 mg PO DAILY Qty: 0
red yeast rice 600 MG tablet
1,200 mg PO DAILY
cholecalciferol (vitamin D3) 1,000 UNITS tablet
1,000 units PO DAILY
cyanocobalamin (vitamin B-12) 1,000 mcg Tablet
1,000 mcg PO DAILY
acyclovir 400 mg Tablet
400 mg PO BID
tamsulosin [Flomax] 0.4 mg Capsule
0.4 mg PO QPM
dexamethasone 4 mg tablet
20 mg PO UD
Patient Comments:
10/22/22- patients take with he gets toddcade infuison
Rx Instructions:
Take once weekly on before treatment for 3 weeks, 1 week off
loratadine [Claritin] 10 mg Tablet
10 mg PO DAILY PRN (Reason: allergies)
Xgeva 120 mg/1.7 mL (70 mg/mL) Solution
120 mg SC [id number]
coQ10 (ubiquinol) 100 mg Capsule
100 mg PO DAILY
zolpidem [Ambien] 5 mg Tablet
5 mg PO HS PRN (Reason: insomnia)
Patient Comments:
08/30/2023: last filled 04/23/23, 30 tabs for [address] [facility]#[id number]
furosemide [Lasix] 80 mg tablet
80 mg PO DAILY Qty: 60 0RF
Discontinued
valsartan 40 MG tablet
40 mg PO DAILY
glipizide 5 mg tablet extended release 24hr
5 mg PO DAILY
sildenafil 100 mg tablet
100 mg PO DAILY PRN (Reason: ed)
metformin 750 mg tablet extended release 24 hr
1,500 mg PO BID
Pomalyst 2 mg capsule
2 mg PO QPM
Patient Comments:
08/30/2023: Pt just started cycle on Sunday (08/27/23)
Rx Instructions:
09/09/23--Take 1 tab daily for 21 days, 7 days off.
Discharge Orders:
Discharge Patient (As Directed); Ordered 09/14/23
Ordered By: Chico Rodríguez
Care Plan Goals
Care Plan Goals:
Problem: Readiness for enhanced knowledge related to diagnosis and treatment plan
Goal: Understand your diagnosis and treatment plan needs, including medications if applicable.
Instructions: Know your diagnosis, underlying causes and treatment plan options, including medications if applicable. Consult with your health care team to learn about your diagnosis and treatment plan, including medications if applicable.
Discharge Date and Time
Discharge Date/Time: 09/14/23 13:00

Documented by User: Chico Rodríguez MD 09/14/23 17:31
Discharge Summary
Discharge Data
Date of Admission: 09/09/23
Date of Discharge: 09/14/23
Discharge Plan
-
Patient Disposition: Home (Routine Discharge)
Discharge Diagnosis/Procedures: CHF
Pulmonary HTN
MM
CKD
Acute Diverticulitis
Condition: Good
Diet: 2 Gram Sodium, Low Residue and Diabetic, Carb Controlled
Additional Diets: Fluid restriction 50 to 55 ounces
Blood Work: BMP and CBC in one week
Specialty Instructions: Weigh Daily- Call MD for wt gain/loss 3 lbs overnight/5 lbs in 1 week
Stand Alone Forms: DC Instructions- Cath/EP Lab
Referrals:
April Marks MD [Active] - in one to two weeks (Assess CPAP, decide whether PET scan as needed or biopsy needed)
Eloy Hunter MD [Family Provider] - in one week
Ginger Lal MD [Active] - 09/20/23 11:20 am (Office [facility] at [facility])
Additional Discharge Medication Instructions: Stop Valzartan, Metformin and Glipizide.
Stop Pomalyst.
Prescriptions:
New
metoprolol succinate 25 mg Tablet Extended Release 24 Hr
25 mg PO DAILY Qty: 60 0RF
sildenafil (pulm.hypertension) 20 mg Tablet
20 mg PO TID Qty: 90 0RF
amoxicillin-pot clavulanate 875-125 mg tablet
1 tab PO Q12H Qty: 20 0RF
Continued
aspirin 81 MG tablet,delayed release (DR/EC)
81 mg PO DAILY Qty: 0
red yeast rice 600 MG tablet
1,200 mg PO DAILY
cholecalciferol (vitamin D3) 1,000 UNITS tablet
1,000 units PO DAILY
cyanocobalamin (vitamin B-12) 1,000 mcg Tablet
1,000 mcg PO DAILY
acyclovir 400 mg Tablet
400 mg PO BID
tamsulosin [Flomax] 0.4 mg Capsule
0.4 mg PO QPM
dexamethasone 4 mg tablet
20 mg PO UD
Patient Comments:
10/22/22- patients take with he gets toddcade infuison
Rx Instructions:
Take once weekly on before treatment for 3 weeks, 1 week off
loratadine [Claritin] 10 mg Tablet
10 mg PO DAILY PRN (Reason: allergies)
Xgeva 120 mg/1.7 mL (70 mg/mL) Solution
120 mg SC [id number]
coQ10 (ubiquinol) 100 mg Capsule
100 mg PO DAILY
zolpidem [Ambien] 5 mg Tablet
5 mg PO HS PRN (Reason: insomnia)
Patient Comments:
08/30/2023: last filled 04/23/23, 30 tabs for [address] [facility]#[id number]
furosemide [Lasix] 80 mg tablet
80 mg PO DAILY Qty: 60 0RF
Discontinued
valsartan 40 MG tablet
40 mg PO DAILY
glipizide 5 mg tablet extended release 24hr
5 mg PO DAILY
sildenafil 100 mg tablet
100 mg PO DAILY PRN (Reason: ed)
metformin 750 mg tablet extended release 24 hr
1,500 mg PO BID
Pomalyst 2 mg capsule
2 mg PO QPM
Patient Comments:
08/30/2023: Pt just started cycle on Sunday (08/27/23)
Rx Instructions:
09/09/23--Take 1 tab daily for 21 days, 7 days off.
Discharge Orders:
Discharge Patient (As Directed); Ordered 09/14/23
Ordered By: Chico Rodríguez
Care Plan Goals
Care Plan Goals:
Problem: Readiness for enhanced knowledge related to diagnosis and treatment plan
Goal: Understand your diagnosis and treatment plan needs, including medications if applicable.
Instructions: Know your diagnosis, underlying causes and treatment plan options, including medications if applicable. Consult with your health care team to learn about your diagnosis and treatment plan, including medications if applicable.
Discharge Date and Time
Discharge Date/Time: 09/14/23 13:00
--- NOTE | 2023-09-14 14:12 | PTCARENOTE ---
Pt seen by Jluis and Marcos. Telemetry and IV device removed. Discharge instructions reviewed reviewed with pt and his regarding activity and driving guidelines, wound care, pain management, medications and their possible side effects,
reporting cares and concerns and follow up appt's. Excellent understanding verbalized. Pt escorted out via wheelchair and pt discharged to home.
--- NOTE | 2023-09-14 14:30 | W.PN.NEPH.PH ---
Today's Communication / Plan
-
- Cr stable
- for d/c
Assessment/Plan
-
Assessment
Multiple myeloma on Krypolis and Pomalyst
Right ventricular overload on recent echocardiogram but with preserved ejection fraction
Diabetes mellitus type 2
Acute kidney injury
Hyperkalemia
Hyponatremia
Anemia
Right-sided abdominal pain
Plan
Cr unchanged at 1.9. likely baseline around 1.8-2.2
s/p RHC PWCP 18, CI 2.5
lasix 80mg daily (ok with cardiology as well)
Eder inconclusive at this time. Appears to be euvolemic at this time. He has no resting shortness of breath or orthopnea. No orthostasis or lightheadedness.
Patient being treated with abx for diverticulitis with improvement in abd pain and diet advancing
Please avoid nephrotoxic agents (valsartan, etc) and dose all medications for GFR
Can follow up in nephrology clinic in 4-6 weeks.
-
-
Date of Service: September 14, 2023
CC / HPI / ROS
-
Chief Complaint:
ANAI
History of Present Illness:
ANAI up to 2, down to 1.9. prior baseline 0.9
hemodynamically stable
s/p RHC 09/13/23, PCWP ~18
Review of Systems:
weights down
abd pain improved
no fevers
Labs
-
Labs:
WBC 2.2 10^3/uL (4.8-10.8) L* 09/14/23 10:28
RBC 2.68 10^6/uL (4.70-6.10) L 09/14/23 10:28
Hgb 8.9 g/dL (13.0-18.0) L 09/14/23 10:28
Hct 26.3 % (39.0-52.0) L 09/14/23 10:28
Plt Count 162 10^3/uL (130-400) D 09/14/23 10:28
Sodium 133 mmol/L (135-145) L 09/14/23 04:41
Potassium 3.8 mmol/L (3.5-5.1) 09/14/23 04:41
Chloride 108 mmol/L (98-107) H 09/14/23 04:41
Carbon Dioxide 24 mmol/L (22-30) 09/14/23 04:41
BUN 23 mg/dl (9-20) H 09/14/23 04:41
Creatinine 1.9 mg/dL (0.7-1.3) H 09/14/23 04:41
eGFR 36.56 09/14/23 04:41
Glucose 106 mg/dl (70-99) H 09/14/23 04:41
Calcium 7.7 mg/dl (8.4-10.2) L 09/14/23 04:41
Auv-U-Eotysvszhhe Pept 2910 pg/ml 09/12/23 04:23
Albumin 3.2 g/dl (3.5-5.0) L 09/09/23 12:27
Physical Exam
-
Vital Signs:
Vital Signs
Temp Pulse Resp BP Pulse Ox
97.8 F 77 18 102/48 92
09/14/23 12:09 09/14/23 12:08 09/14/23 12:09 09/14/23 12:08 09/14/23 08:30
Cardiovascular:: Regular rate and rhythm
Respiratory:: Bilateral: Coarse
Lung Excursion:: Normal
Abdomen:: Nontender and Soft
Bowel Sounds:: Normal
Extremity Edema:: None: Bilateral:
Flowers Catheter: No
--- NOTE | 2023-09-14 15:01 | W.PN.CARDCBS ---
Today's Communication / Plan
-
Stable cardiology status for discharge
Discharged on Lasix 80 mg daily
Continue Revatio
Follow-up arranged
Impression / Plan
-
Dry Room Operator: Dr. Ginger Lal
Impression:
-Acute diastolic CHF
-Acute renal insufficiency
-Pulmonary hypertension and chronic RV dysfunction/heart failure with preserved ejection fraction
-Right-sided upper abdominal pain/rib pain likely related to right-sided diverticulitis noted on CT scan
-Mild aortic stenosis
-Hypertension
-Dyslipidemia on red yeast rice
-CT imaging noting coronary atherosclerosis without history of [place]
-Aortic atherosclerosis without aneurysm
-Right bundle branch block
-Type 2 diabetes mellitus
-Fatty liver infiltration
-History of prostate cancer status post prostatectomy
-Active Multiple myeloma
-History of diverticulitis in 2015
-Degenerative joint disease of lumbar spine
Right heart catheterization 09/13/2023
Hemodynamics (mmHg):
RA (m) : 13
RV (s/d,m) : 77/12, 17
PA (s/d, m) : 77/23, 48
PCWP (m) : 18
Cardiac Output : 5.2 L/min
Cardiac Index : 2.5 L/min/m-2
Systemic vascular resistance: 13.5 Wood units or 1077 [id number](-5)
Pulmonary vascular resistance: 5.8 Wood units or 461 [id number](-5)
RADIATION SUMMARY:� Fluoro Time (min): 1, Dose (mGy): 11, DAP (Gy.cm2) : 1.8
CONCLUSION:
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
Plan:
Stable cardiology status for discharge
Pulmonary capital wedge pressure 18 on 09/12 which is just above normal
No significant response to further IV Lasix and creatinine increased slightly to 1.9
Weight is 200 pounds on 09/14/2023 and dry weight is reported as 199 point
Revatio has been started for pulmonary hypertension
Has follow-up with Dr. Ginger Lal next week
Discussed with primary service as well as nephrology and hematology
Will discharge on Lasix 80 mg daily which was outpatient dose
Progress Note - Dry Room Operator
Subjective
Date of Service: September 14, 2023
No complaints
Objective
Labs:
09/14/23 10:28
09/14/23 04:41
Labs
Hgb 8.9 g/dL (13.0-18.0) L 09/14/23 10:28
Hct 26.3 % (39.0-52.0) L 09/14/23 10:28
Plt Count 162 10^3/uL (130-400) D 09/14/23 10:28
Sodium 133 mmol/L (135-145) L 09/14/23 04:41
Potassium 3.8 mmol/L (3.5-5.1) 09/14/23 04:41
BUN 23 mg/dl (9-20) H 09/14/23 04:41
Creatinine 1.9 mg/dL (0.7-1.3) H 09/14/23 04:41
Glucose 106 mg/dl (70-99) H 09/14/23 04:41
Vital Signs and I&O:
Vital Signs
Temp Pulse Resp BP Pulse Ox
97.8 F 77 18 102/48 92
09/14/23 12:09 09/14/23 12:09/14/23 12:09/14/23 12:08 09/14/23 08:30
Vital Signs
Temp Pulse Resp BP Pulse Ox
97.8 F 77 18 102/48 92
09/14/23 12:09 09/14/23 12:08 09/14/23 12:09 09/14/23 12:08 09/14/23 08:30
Intake & Output
09/12/23 09/13/23 09/14/23 09/15/23
06:59 06:59 06:59 06:59
Intake Total 1060 / 1060 1180 / 1180 1090 / 1090 240 / 240
Balance 1060 / 1060 1180 / 1180 1090 / 1090 240 / 240
Physical Exam
Physical Exam
General: Well developed, well nourished in NAD.
Neck: Supple, no JVD, HJR, carotids +2 B/L, no bruits bilaterally.
Heart: Non displaced PMI, RRR, no murmurs, No S3, S4, no rubs.
Lungs: Clear to auscultation bilaterally, no wheeze, rhonchi, rubs bilaterally,
normal expiratory phase.
Extremities: No clubbing, cyanosis or edema bilaterally.
Neuro: Grossly nonfocal, awake, alert and oriented x3.
--- NOTE | 2023-09-14 17:32 | W.PN.UPDATE ---
Update Note
Progress Note Update
Patient seen and examined
Discussed with cardiology, oncology, nephrology.
Impression/plan:*
Acute right-sided diverticulitis improved.
Diet has been advanced
Transition to oral antibiotics to complete total 14-day course of treatment
Acute CHF with severe pulmonary hypertension
Suspected capillary hypertension related to carfilzomib treatment.
Acute hypoxic respiratory failure improved and currently off oxygen supplementation.
Reinstate preadmission dose of Lasix at 80 mg a day.
Initiated on Revatio.
With ANAI on CKD (creatinine 1.8 likely baseline) hold valsartan.
Follow-up BMP as outpatient
Multiple myeloma with pancytopenia
Hemoglobin at baseline
Will give dose of Epogen prior to discharge
Follow-up next week for iron infusion
Type 2 diabetes
Hemoglobin A1c 6.5.
Metformin has been discontinued due to abnormal renal function.
Remains diet controlled and euglycemic while off glipizide.
Plan is to monitor blood glucose as outpatient and reconcile options for treatment. Current goal is to avoid hypoglycemia.
== END 2023-09-14 13:00 | disposition home or self-care (01) | DRG 286 ==
LOC: IVU 17:00
PROVIDERS: Internal Medicine Interventional Cardiology; Nurse Practitioner; ADMITTING PHYSICIAN Internal Medicine; ATTENDING PHYSICIAN Internal Medicine; CONSULT PHYSICIAN Internal Medicine Cardiovascular Disease; CONSULT PHYSICIAN Internal Medicine Hematology & Oncology; CONSULT PHYSICIAN Specialist; EMERGENCY PHYSICIAN Emergency Medicine; FAMILY PHYSICIAN Family Medicine; OTHER PHYSICIAN Internal Medicine Critical Care Medicine; OTHER PHYSICIAN Surgery; REFERRING PHYSICIAN Internal Medicine Hematology & Oncology
PROC: 4A023N6 Measurement of Cardiac Sampling and Pressure, Right Heart, Percutaneous Approach (ICD-10-PCS; 2023-09-13)
DX: I13.0 Hypertensive heart and chronic kidney disease with heart failure and stage 1 through stage 4 chronic kidney disease, or unspecified chronic kidney disease (principal); I50.33 Acute on chronic diastolic (congestive) heart failure; J96.01 Acute respiratory failure with hypoxia; C90.00 Multiple myeloma not having achieved remission; N17.9 Acute kidney failure, unspecified; E87.1 Hypo-osmolality and hyponatremia; K57.32 Diverticulitis of large intestine without perforation or abscess without bleeding; D61.818 Other pancytopenia; J98.11 Atelectasis; I50.82 Biventricular heart failure; E11.649 Type 2 diabetes mellitus with hypoglycemia without coma; E11.36 Type 2 diabetes mellitus with diabetic cataract; E11.65 Type 2 diabetes mellitus with hyperglycemia; E11.22 Type 2 diabetes mellitus with diabetic chronic kidney disease; E87.5 Hyperkalemia; I27.29 Other secondary pulmonary hypertension; K76.0 Fatty (change of) liver, not elsewhere classified; E53.8 Deficiency of other specified B group vitamins; N18.32 Chronic kidney disease, stage 3b; I25.10 Atherosclerotic heart disease of native coronary artery without angina pectoris; D63.8 Anemia in other chronic diseases classified elsewhere; I35.0 Nonrheumatic aortic (valve) stenosis; E78.5 Hyperlipidemia, unspecified; M47.816 Spondylosis without myelopathy or radiculopathy, lumbar region; I95.9 Hypotension, unspecified; E87.6 Hypokalemia; Z85.46 Personal history of malignant neoplasm of prostate; Z90.79 Acquired absence of other genital organ(s); Z79.84 Long term (current) use of oral hypoglycemic drugs; Z79.82 Long term (current) use of aspirin; Z87.891 Personal history of nicotine dependence; Z88.1 Allergy status to other antibiotic agents; Z79.52 Long term (current) use of systemic steroids; Z87.442 Personal history of urinary calculi; Z87.19 Personal history of other diseases of the digestive system; Z92.21 Personal history of antineoplastic chemotherapy
CPT/HCPCS: 71046; 74176; 76700; 80048; 80053; 80061; 81003; 81015; 82570; 82962; 83036; 83690; 83735; 83880; 84300; 85025; 85027; 97162; 97165; 99285; Q5106

== ENCOUNTER → 2023-09-18 09:07 | Outpatient (REF) | payer MEDICARE, OTHER, SELFPAY ==
[2023-09-18 09:45] LABS: % Basophils 0.5 % (0-2); % Eosinophils 0.5 % (0-6); % Immature Granulocytes 0.5 % (0-0.5); % Lymphocytes 21.5 % (20.5-51.1); % Monocytes 19.6 % (1.7-9.3); % Neutrophils 57.4 % (42.2-75.2); Absolute Lymphocytes 0.5 10^3/uL (1.2-3.4); Absolute Monocytes 0.4 10^3/uL (0.1-0.6); Absolute Neutrophils 1.3 10^3/uL (1.4-6.5); Hematocrit 29.4 % (39.0-52.0); Hemoglobin 9.4 g/dL (13.0-18.0); Mean Corpuscular Hgb 32.8 pg (27.0-31.0); Mean Corpuscular Volume 102.4 fL (80.0-94.0); Mean Platelet Volume 10.7 fL (7.4-10.4); Platelet Count 172 10^3/uL (130-400); Red Blood Cell Count 2.87 10^6/uL (4.70-6.10); Red Cell Dist. Width 15.1 % (11.5-14.5); White Blood Cell Count 2.2 10^3/uL (4.8-10.8)
[2023-09-18 10:56] LABS: NT-proBNP 2920 pg/ml
[2023-09-18 10:57] LABS: ALT (SGPT) 17 U/L (0-50); AST (SGOT) 16 U/L (17-59); Albumin 3.1 g/dl (3.5-5.0); Alkaline Phosphatase 75 U/L (38-126); Blood Urea Nitrogen 24 mg/dl (9-20); Calcium 8.1 mg/dl (8.4-10.2); Carbon Dioxide 23 mmol/L (22-30); Chloride 109 mmol/L (98-107); Glucose 129 mg/dl (70-99); Potassium 4.1 mmol/L (3.5-5.1); Sodium 136 mmol/L (135-145); Total Protein 9.7 g/dl (6.3-8.2); eGFR 30.66
[2023-09-19 17:03] LABS: Beta-2-Microglobulin 24.8 mg/L (<=3.0)
[2023-09-21 01:15] LABS: Albumin 2.76 g/dL (3.75-5.01); Alpha 1 Globulin 0.39 g/dL (0.19-0.46); Free Kappa Light Chains,Quant 9154.91 mg/L (3.30-19.40); Free Lambda Light Chains,Quant 3.19 mg/L (5.71-26.30); IgA 4 mg/dL (68-408); IgG 5434 mg/dL (768-1632); IgM <10 mg/dL (35-263); Immunofixation Electrophoresis IFE Done; Kappa/Lambda Fr Light Ratio 2869.88 (0.26-1.65); Total Protein-Electrophoresis 10.6 g/dL (6.3-8.2)
== END ==
LOC: OIDL 09:07
PROVIDERS: ATTENDING PHYSICIAN Internal Medicine Hematology & Oncology; FAMILY PHYSICIAN Family Medicine
DX: C61 Malignant neoplasm of prostate (principal); E53.9 Vitamin B deficiency, unspecified; C90.00 Multiple myeloma not having achieved remission; C79.51 Secondary malignant neoplasm of bone; D64.81 Anemia due to antineoplastic chemotherapy; N39.0 Urinary tract infection, site not specified
CPT/HCPCS: 36415; 80053; 82232; 82784; 83521; 83880; 84155; 84165; 85025; 86334

== ENCOUNTER → 2023-09-24 08:45 | Outpatient (REF) | payer MEDICARE, OTHER, SELFPAY ==
[2023-09-24 10:40] LABS: % Basophils 0.5 % (0-2); % Eosinophils 0.3 % (0-6); % Immature Granulocytes 0.3 % (0-0.5); % Lymphocytes 23.9 % (20.5-51.1); % Monocytes 9.9 % (1.7-9.3); % Neutrophils 65.1 % (42.2-75.2); Absolute Lymphocytes 0.9 10^3/uL (1.2-3.4); Absolute Monocytes 0.4 10^3/uL (0.1-0.6); Absolute Neutrophils 2.4 10^3/uL (1.4-6.5); Hematocrit 27.1 % (39.0-52.0); Hemoglobin 8.4 g/dL (13.0-18.0); Mean Corpuscular Hgb 31.6 pg (27.0-31.0); Mean Corpuscular Volume 101.9 fL (80.0-94.0); Nucleated Red Blood Cells % 0 % (-); Red Blood Cell Count 2.66 10^6/uL (4.70-6.10); Red Cell Dist. Width 15.4 % (11.5-14.5); White Blood Cell Count 3.6 10^3/uL (4.8-10.8)
[2023-09-24 11:01] LABS: ALT (SGPT) 22 U/L (0-50); AST (SGOT) 24 U/L (17-59); Albumin 2.8 g/dl (3.5-5.0); Alkaline Phosphatase 69 U/L (38-126); Blood Urea Nitrogen 39 mg/dl (9-20); Calcium 9.1 mg/dl (8.4-10.2); Carbon Dioxide 25 mmol/L (22-30); Chloride 106 mmol/L (98-107); Glucose 151 mg/dl (70-99); Potassium 4.4 mmol/L (3.5-5.1); Sodium 134 mmol/L (135-145); Total Bilirubin 1.2 mg/dl (0.2-1.3); eGFR 27.62
[2023-09-24 11:33] LABS: Total Protein 12.2 g/dl (6.3-8.2)
[2023-09-24 11:45] LABS: Mean Platelet Volume 10.6 fL (7.4-10.4); Platelet Count 119 10^3/uL (130-400)
== END ==
LOC: REG 08:45
PROVIDERS: ATTENDING PHYSICIAN Internal Medicine Hematology & Oncology
DX: C61 Malignant neoplasm of prostate (principal); E53.9 Vitamin B deficiency, unspecified; D64.9 Anemia, unspecified; C90.00 Multiple myeloma not having achieved remission; C79.51 Secondary malignant neoplasm of bone; D64.81 Anemia due to antineoplastic chemotherapy; N39.0 Urinary tract infection, site not specified
CPT/HCPCS: 36415; 80053; 85025

== ENCOUNTER → 2023-09-25 12:21 | Outpatient (REF) | payer MEDICARE, OTHER, SELFPAY ==
[2023-09-25 10:38] LABS: Hematocrit 24.2 % (39.0-52.0); Hemoglobin 7.8 g/dL (13.0-18.0); Mean Corp Hgb Conc. 32.2 g/dL (33.0-37.0); Mean Corpuscular Hgb 32.8 pg (27.0-31.0); Mean Corpuscular Volume 101.7 fL (80.0-94.0); Mean Platelet Volume 10.3 fL (7.4-10.4); Platelet Count 92 10^3/uL (130-400); Red Blood Cell Count 2.38 10^6/uL (4.70-6.10); Red Cell Dist. Width 15.2 % (11.5-14.5); White Blood Cell Count 3.1 10^3/uL (4.8-10.8)
[2023-09-25 11:51] LABS: % Basophils 0.3 % (0-2); % Immature Granulocytes 0.6 % (0-0.5); % Lymphocytes 17.7 % (20.5-51.1); % Monocytes 8.2 % (1.7-9.3); % Neutrophils 73.2 % (42.2-75.2); Absolute Lymphocytes 0.6 10^3/uL (1.2-3.4); Absolute Monocytes 0.3 10^3/uL (0.1-0.6); Absolute Neutrophils 2.3 10^3/uL (1.4-6.5); Nucleated Red Blood Cells % 0 % (-)
[2023-09-25 13:08] LABS: ALT (SGPT) 25 U/L (0-50); AST (SGOT) 28 U/L (17-59); Albumin 2.7 g/dl (3.5-5.0); Alkaline Phosphatase 64 U/L (38-126); Blood Urea Nitrogen 41 mg/dl (9-20); Calcium 8.3 mg/dl (8.4-10.2); Carbon Dioxide 24 mmol/L (22-30); Chloride 103 mmol/L (98-107); Glucose 311 mg/dl (70-99); LDH 328 U/L (120-246); Potassium 4.2 mmol/L (3.5-5.1); Sodium 129 mmol/L (135-145); Total Bilirubin 0.9 mg/dl (0.2-1.3); eGFR 25.09
[2023-09-25 13:14] LABS: Total Protein 11.9 g/dl (6.3-8.2)
[2023-09-25 13:15] LABS: Uric Acid 16.1 mg/dl (3.5-8.5)
== END ==
LOC: OIDL 12:21
PROVIDERS: ATTENDING PHYSICIAN Internal Medicine Hematology & Oncology
DX: C61 Malignant neoplasm of prostate (principal)
CPT/HCPCS: 80053; 83615; 84550; 85025

== ENCOUNTER → 2023-10-09 08:13 | Outpatient (REF) | payer MEDICARE, OTHER, SELFPAY ==
[2023-10-09 09:17] LABS: % Basophils 0.4 % (0-2); % Eosinophils 1.8 % (0-6); % Immature Granulocytes 1.1 % (0-0.5); % Lymphocytes 11.4 % (20.5-51.1); % Monocytes 8.9 % (1.7-9.3); % Neutrophils 76.4 % (42.2-75.2); Absolute Eosinophils 0.1 10^3/uL (0-0.7); Absolute Lymphocytes 0.3 10^3/uL (1.2-3.4); Absolute Monocytes 0.3 10^3/uL (0.1-0.6); Absolute Neutrophils 2.1 10^3/uL (1.4-6.5); Hematocrit 31.9 % (39.0-52.0); Hemoglobin 10.4 g/dL (13.0-18.0); Mean Corp Hgb Conc. 32.6 g/dL (33.0-37.0); Mean Corpuscular Hgb 31.9 pg (27.0-31.0); Mean Corpuscular Volume 97.9 fL (80.0-94.0); Mean Platelet Volume 10.4 fL (7.4-10.4); Nucleated Red Blood Cells % 0 % (-); Platelet Count 176 10^3/uL (130-400); Red Blood Cell Count 3.26 10^6/uL (4.70-6.10); Red Cell Dist. Width 16.5 % (11.5-14.5); White Blood Cell Count 2.8 10^3/uL (4.8-10.8)
[2023-10-11 13:08] LABS: Albumin 2.82 g/dL (3.75-5.01); Alpha 1 Globulin 0.36 g/dL (0.19-0.46); Alpha 2 Globulin 0.63 g/dL (0.48-1.05); Free Kappa Light Chains,Quant 2736.88 mg/L (3.30-19.40); Free Lambda Light Chains,Quant <1.37 mg/L (5.71-26.30); IgA <2 mg/dL (68-408); IgG 4772 mg/dL (768-1632); IgM <10 mg/dL (35-263); Immunofixation Electrophoresis IFE Done; Total Protein-Electrophoresis 9.2 g/dL (6.3-8.2)
== END ==
LOC: REG 08:13
PROVIDERS: ATTENDING PHYSICIAN Internal Medicine Hematology & Oncology; FAMILY PHYSICIAN Family Medicine; OTHER PHYSICIAN Internal Medicine Cardiovascular Disease; OTHER PHYSICIAN Internal Medicine Hematology & Oncology; REFERRING PHYSICIAN Internal Medicine Hematology & Oncology
DX: C61 Malignant neoplasm of prostate (principal); E53.9 Vitamin B deficiency, unspecified; D64.9 Anemia, unspecified; C90.00 Multiple myeloma not having achieved remission; C79.51 Secondary malignant neoplasm of bone; D64.81 Anemia due to antineoplastic chemotherapy; N39.0 Urinary tract infection, site not specified
CPT/HCPCS: 36415; 82784; 83521; 84155; 84165; 85025; 86334

== ENCOUNTER → 2023-10-11 07:40 | Outpatient (REF) | payer MEDICARE, OTHER, SELFPAY ==
[2023-10-11 08:16] LABS: % Basophils 0.4 % (0-2); % Eosinophils 1.6 % (0-6); % Immature Granulocytes 0.4 % (0-0.5); % Lymphocytes 19.1 % (20.5-51.1); % Monocytes 8.4 % (1.7-9.3); % Neutrophils 70.1 % (42.2-75.2); Absolute Lymphocytes 0.5 10^3/uL (1.2-3.4); Absolute Monocytes 0.2 10^3/uL (0.1-0.6); Absolute Neutrophils 1.8 10^3/uL (1.4-6.5); Hematocrit 30.4 % (39.0-52.0); Mean Corp Hgb Conc. 32.9 g/dL (33.0-37.0); Mean Corpuscular Hgb 32.1 pg (27.0-31.0); Mean Corpuscular Volume 97.4 fL (80.0-94.0); Mean Platelet Volume 10.5 fL (7.4-10.4); Nucleated Red Blood Cells % 0 % (-); Platelet Count 189 10^3/uL (130-400); Red Blood Cell Count 3.12 10^6/uL (4.70-6.10); Red Cell Dist. Width 16.9 % (11.5-14.5); White Blood Cell Count 2.5 10^3/uL (4.8-10.8)
[2023-10-11 08:42] LABS: Glycohemoglobin (HgbA1c) 7.2 % (4.0-5.6)
[2023-10-11 08:46] LABS: ALT (SGPT) 38 U/L (0-50); AST (SGOT) 16 U/L (17-59); Albumin 3.3 g/dl (3.5-5.0); Alkaline Phosphatase 71 U/L (38-126); Blood Urea Nitrogen 24 mg/dl (9-20); Calcium 8.8 mg/dl (8.4-10.2); Carbon Dioxide 26 mmol/L (22-30); Chloride 100 mmol/L (98-107); Glucose 186 mg/dl (70-99); Potassium 4.4 mmol/L (3.5-5.1); Sodium 133 mmol/L (135-145); Total Bilirubin 0.9 mg/dl (0.2-1.3); eGFR 48.55
[2023-10-14 14:01] LABS: Albumin 2.86 g/dL (3.75-5.01); Alpha 1 Globulin 0.38 g/dL (0.19-0.46); Free Kappa Light Chains,Quant 2985.41 mg/L (3.30-19.40); Free Lambda Light Chains,Quant <1.37 mg/L (5.71-26.30); IgA <2 mg/dL (68-408); IgG 4282 mg/dL (768-1632); IgM <10 mg/dL (35-263); Immunofixation Electrophoresis IFE Done; Total Protein-Electrophoresis 9.6 g/dL (6.3-8.2)
== END ==
LOC: REG 07:40
PROVIDERS: ATTENDING PHYSICIAN Family Medicine; FAMILY PHYSICIAN Internal Medicine Hematology & Oncology
DX: E11.8 Type 2 diabetes mellitus with unspecified complications (principal); C90.00 Multiple myeloma not having achieved remission; N18.32 Chronic kidney disease, stage 3b; C79.51 Secondary malignant neoplasm of bone; I27.20 Pulmonary hypertension, unspecified; I10 Essential (primary) hypertension; C61 Malignant neoplasm of prostate; E53.9 Vitamin B deficiency, unspecified; D64.9 Anemia, unspecified; D64.81 Anemia due to antineoplastic chemotherapy; N39.0 Urinary tract infection, site not specified
CPT/HCPCS: 36415; 80053; 82784; 83036; 83521; 84155; 84165; 85025; 86334

== ENCOUNTER → 2023-10-17 08:39 | Outpatient (REF) | payer MEDICARE, OTHER, SELFPAY ==
[2023-10-17 09:10] LABS: % Eosinophils 4.5 % (0-6); % Immature Granulocytes 0.5 % (0-0.5); Absolute Eosinophils 0.1 10^3/uL (0-0.7); Absolute Lymphocytes 0.4 10^3/uL (1.2-3.4); Absolute Monocytes 0.2 10^3/uL (0.1-0.6); Absolute Neutrophils 1.3 10^3/uL (1.4-6.5); Hematocrit 28.4 % (39.0-52.0); Hemoglobin 9.3 g/dL (13.0-18.0); Mean Corp Hgb Conc. 32.7 g/dL (33.0-37.0); Mean Corpuscular Volume 97.6 fL (80.0-94.0); Mean Platelet Volume 9.8 fL (7.4-10.4); Nucleated Red Blood Cells % 0 % (-); Platelet Count 127 10^3/uL (130-400); Red Blood Cell Count 2.91 10^6/uL (4.70-6.10); Red Cell Dist. Width 16.9 % (11.5-14.5)
[2023-10-17 09:36] LABS: ALT (SGPT) 21 U/L (0-50); AST (SGOT) 15 U/L (17-59); Albumin 3.1 g/dl (3.5-5.0); Alkaline Phosphatase 62 U/L (38-126); Blood Urea Nitrogen 23 mg/dl (9-20); Calcium 9.6 mg/dl (8.4-10.2); Carbon Dioxide 26 mmol/L (22-30); Chloride 102 mmol/L (98-107); Glucose 196 mg/dl (70-99); Iron 121 ug/dl (49-181); Potassium 4.1 mmol/L (3.5-5.1); Sodium 132 mmol/L (135-145); Total Bilirubin 0.9 mg/dl (0.2-1.3); Total Protein 9.3 g/dl (6.3-8.2); eGFR 44.93
[2023-10-17 09:41] LABS: NT-proBNP 1190 pg/ml
[2023-10-17 09:45] LABS: Percent Saturation 53 % (20-50); Total Iron Binding Capacity 225 ug/dl (261-462)
== END ==
LOC: REG 08:39
PROVIDERS: ATTENDING PHYSICIAN Internal Medicine Hematology & Oncology; FAMILY PHYSICIAN Internal Medicine Cardiovascular Disease; OTHER PHYSICIAN Family Medicine; REFERRING PHYSICIAN Internal Medicine Hematology & Oncology
DX: C61 Malignant neoplasm of prostate (principal); E53.9 Vitamin B deficiency, unspecified; D64.9 Anemia, unspecified; C90.00 Multiple myeloma not having achieved remission; C79.51 Secondary malignant neoplasm of bone; D64.81 Anemia due to antineoplastic chemotherapy; I27.21 Secondary pulmonary arterial hypertension; I50.32 Chronic diastolic (congestive) heart failure
CPT/HCPCS: 36415; 80053; 82728; 83540; 83550; 83880; 85025

== ENCOUNTER → 2023-10-24 08:46 | Outpatient (REF) | payer MEDICARE, OTHER, SELFPAY ==
[2023-10-24 10:21] LABS: % Basophils 1.1 % (0-2); % Eosinophils 3.2 % (0-6); % Immature Granulocytes 0.5 % (0-0.5); % Lymphocytes 16.3 % (20.5-51.1); % Monocytes 16.8 % (1.7-9.3); % Neutrophils 62.1 % (42.2-75.2); Absolute Eosinophils 0.1 10^3/uL (0-0.7); Absolute Lymphocytes 0.3 10^3/uL (1.2-3.4); Absolute Monocytes 0.3 10^3/uL (0.1-0.6); Absolute Neutrophils 1.2 10^3/uL (1.4-6.5); Hematocrit 26.8 % (39.0-52.0); Hemoglobin 8.6 g/dL (13.0-18.0); Mean Corp Hgb Conc. 32.1 g/dL (33.0-37.0); Mean Corpuscular Hgb 32.1 pg (27.0-31.0); Mean Platelet Volume 10.9 fL (7.4-10.4); Nucleated Red Blood Cells % 0 % (-); Platelet Count 128 10^3/uL (130-400); Red Blood Cell Count 2.68 10^6/uL (4.70-6.10); Red Cell Dist. Width 17.3 % (11.5-14.5); White Blood Cell Count 1.9 10^3/uL (4.8-10.8)
[2023-10-24 11:03] LABS: ALT (SGPT) 21 U/L (0-50); AST (SGOT) 22 U/L (17-59); Alkaline Phosphatase 60 U/L (38-126); Blood Urea Nitrogen 32 mg/dl (9-20); Calcium 9.9 mg/dl (8.4-10.2); Carbon Dioxide 26 mmol/L (22-30); Chloride 104 mmol/L (98-107); Glucose 153 mg/dl (70-99); Sodium 133 mmol/L (135-145); Total Bilirubin 0.6 mg/dl (0.2-1.3); Total Protein 10.4 g/dl (6.3-8.2); eGFR 39.01
== END ==
LOC: REG 08:46
PROVIDERS: ATTENDING PHYSICIAN Internal Medicine Hematology & Oncology; FAMILY PHYSICIAN Family Medicine; OTHER PHYSICIAN Internal Medicine Hematology & Oncology; REFERRING PHYSICIAN Internal Medicine Hematology & Oncology
DX: C61 Malignant neoplasm of prostate (principal); E53.9 Vitamin B deficiency, unspecified; D64.9 Anemia, unspecified; C90.00 Multiple myeloma not having achieved remission; C79.51 Secondary malignant neoplasm of bone; D64.81 Anemia due to antineoplastic chemotherapy
CPT/HCPCS: 36415; 80053; 85025

== ENCOUNTER → 2023-10-31 07:57 | Outpatient (REF) | payer MEDICARE, OTHER, SELFPAY ==
[2023-10-31 08:26] LABS: % Basophils 0.6 % (0-2); % Eosinophils 0.8 % (0-6); % Immature Granulocytes 1.7 % (0-0.5); % Lymphocytes 20.4 % (20.5-51.1); % Monocytes 10.8 % (1.7-9.3); % Neutrophils 65.7 % (42.2-75.2); Absolute Immature Granulocytes 0.1 10^3/uL (0-0.05); Absolute Lymphocytes 0.7 10^3/uL (1.2-3.4); Absolute Monocytes 0.4 10^3/uL (0.1-0.6); Absolute Neutrophils 2.3 10^3/uL (1.4-6.5); Hematocrit 26.4 % (39.0-52.0); Hemoglobin 8.5 g/dL (13.0-18.0); Mean Corp Hgb Conc. 32.2 g/dL (33.0-37.0); Mean Corpuscular Volume 99.2 fL (80.0-94.0); Mean Platelet Volume 10.4 fL (7.4-10.4); Nucleated Red Blood Cells % 0.6 % (-); Platelet Count 128 10^3/uL (130-400); Red Blood Cell Count 2.66 10^6/uL (4.70-6.10); Red Cell Dist. Width 17.9 % (11.5-14.5); White Blood Cell Count 3.5 10^3/uL (4.8-10.8)
[2023-10-31 09:07] LABS: ALT (SGPT) 20 U/L (0-50); AST (SGOT) 24 U/L (17-59); Albumin 2.8 g/dl (3.5-5.0); Alkaline Phosphatase 71 U/L (38-126); Blood Urea Nitrogen 33 mg/dl (9-20); Calcium 11.1 mg/dl (8.4-10.2); Carbon Dioxide 25 mmol/L (22-30); Chloride 105 mmol/L (98-107); Glucose 113 mg/dl (70-99); Potassium 3.9 mmol/L (3.5-5.1); Sodium 133 mmol/L (135-145); Total Bilirubin 0.7 mg/dl (0.2-1.3); eGFR 34.38
[2023-10-31 09:30] LABS: Total Protein 12.1 g/dl (6.3-8.2)
[2023-11-02 14:40] LABS: Albumin 2.23 g/dL (3.75-5.01); Alpha 1 Globulin 0.35 g/dL (0.19-0.46); Alpha 2 Globulin 0.55 g/dL (0.48-1.05); Free Kappa Light Chains,Quant 10520.74 mg/L (3.30-19.40); Free Lambda Light Chains,Quant <1.37 mg/L (5.71-26.30); IgA <2 mg/dL (68-408); IgG 7234 mg/dL (768-1632); IgM <10 mg/dL (35-263); Immunofixation Electrophoresis IFE Done; Monoclonal Protein 7.96 g/dL (<=0.00); Total Protein-Electrophoresis 11.5 g/dL (6.3-8.2)
== END ==
LOC: REG 07:57
PROVIDERS: ATTENDING PHYSICIAN Internal Medicine Hematology & Oncology
DX: C61 Malignant neoplasm of prostate (principal); E53.9 Vitamin B deficiency, unspecified; D64.9 Anemia, unspecified; C90.00 Multiple myeloma not having achieved remission; C79.51 Secondary malignant neoplasm of bone; D64.81 Anemia due to antineoplastic chemotherapy; N39.0 Urinary tract infection, site not specified
CPT/HCPCS: 36415; 80053; 82784; 83521; 84155; 84165; 85025; 86334

== ENCOUNTER → 2023-11-01 14:20 | Outpatient (REF) | payer MEDICARE, OTHER, SELFPAY ==
[2023-11-01 15:47] LABS: ALT (SGPT) 26 U/L (0-50); AST (SGOT) 27 U/L (17-59); Albumin 2.8 g/dl (3.5-5.0); Alkaline Phosphatase 79 U/L (38-126); Blood Urea Nitrogen 33 mg/dl (9-20); Calcium 10.7 mg/dl (8.4-10.2); Carbon Dioxide 23 mmol/L (22-30); Chloride 105 mmol/L (98-107); Glucose 155 mg/dl (70-99); Potassium 3.7 mmol/L (3.5-5.1); Sodium 132 mmol/L (135-145); Total Bilirubin 0.6 mg/dl (0.2-1.3); eGFR 34.38
[2023-11-01 15:53] LABS: Total Protein 11.9 g/dl (6.3-8.2)
[2023-11-01 16:55] LABS: LDH 302 U/L (120-246)
== END ==
LOC: OIDL 14:20
PROVIDERS: ATTENDING PHYSICIAN Internal Medicine Hematology & Oncology
DX: C61 Malignant neoplasm of prostate (principal)
CPT/HCPCS: 80053; 83615; 84550

== ENCOUNTER → 2023-11-03 09:42 | Outpatient (REF) | payer MEDICARE, OTHER, SELFPAY ==
[2023-11-03 10:56] LABS: Blood Urea Nitrogen 35 mg/dl (9-20); Carbon Dioxide 23 mmol/L (22-30); Chloride 104 mmol/L (98-107); Glucose 191 mg/dl (70-99); Potassium 4.2 mmol/L (3.5-5.1); Sodium 127 mmol/L (135-145); Uric Acid 0.5 mg/dl (3.5-8.5)
== END ==
LOC: REG 09:42
PROVIDERS: ATTENDING PHYSICIAN Internal Medicine Hematology & Oncology; FAMILY PHYSICIAN Family Medicine; OTHER PHYSICIAN Internal Medicine Cardiovascular Disease; REFERRING PHYSICIAN Internal Medicine Hematology & Oncology
DX: C61 Malignant neoplasm of prostate (principal); E53.9 Vitamin B deficiency, unspecified; D64.9 Anemia, unspecified; C90.00 Multiple myeloma not having achieved remission; C79.51 Secondary malignant neoplasm of bone; D64.81 Anemia due to antineoplastic chemotherapy; N39.0 Urinary tract infection, site not specified; D63.0 Anemia in neoplastic disease
CPT/HCPCS: 36415; 80048; 84550

== ENCOUNTER 2023-11-03 17:05 | Inpatient (IN) | payer MEDICARE, OTHER, SELFPAY ==
[2023-11-03] VITALS (9 sets, daily range): BP systolic 85–138; BP diastolic 54–76; BMI 31.3; BMI 31.0
--- NOTE | 2023-11-03 12:52 | ED.GENMED ---
History of Present Illness
<Yulissa Rust PA-C - Last Filed: 11/03/23 15:23>
General
Chief Complaint: Musculo-Skeletal Complaint
Source: patient
Exam Limitations: none
Time Seen by Provider: 11/03/23 12:16
Nursing documentation reviewed up to this point in time: agreed with
Travel History
Have you had any contact with someone who has COVID-19?: No
Do you have any symptoms of coronavirus? Fever > 100 degrees, chills, cough, shortness of breath, sore throat, loss of taste or smell, muscle aches, or headache?: No
History of Present Illness
History of Present Illness:
73 y/o M with h/o HFpEF on lasix, CKD, MM refractery to treatment, pulm htn
had a fall yesterday where he tripped up the steps and hit his right ribs with his elbow
had pain with breathing yesterdya, took aleve but wakes up today with less pain
however he is alittle sob- he claims not to be but family can see it
apparently 4 days ago, he had to reduce his lasix dose due to rising cr levels
now he has gained 5 pounds in the past few days
no leg swelling, chest pain, fever, cough, weakness.
pt says he feels ok but his family wanted his ribs to be checked out
Past History
<Yulissa Rust PA-C - Last Filed: 11/03/23 15:23>
Past History
ED Past Medical History: Cancer, HTN and Other (renal stones, diveticulitis, hx of urosepsis)
ED Past Surgical History: None
Social History
Tobacco: Non-smoker
Personal:
Living: with family
Employment: Employed
Review of Systems
<Yulissa Rust PA-C - Last Filed: 11/03/23 15:23>
Review of Systems
Allergies reviewed?: Yes
All Other Systems: Not applicable
Phy Exam
<Yulissa Rust PA-C - Last Filed: 11/03/23 15:23>
Physical Exam
Physical Exam:
GENERAL: Alert , in no apparent distress
EYE: pupils equal and reactive
NECK: Supple
ENT: o/p clr, mmm.
CARDIAC: Regular rate and rhythm .
chest wall: mild right loewr rib tenderness;
LUNGS: mildly tachypneic, left lower lobe crackles
no cough, no edema
ABDOMEN: Soft, without focal tenderness, no r/g, no cvat, normal bowel sounds
no bruising
no RUQ tenderness;
NEUROLOGICAL: Alert and oriented, no focal neuro deficits
SKIN: Warm and dry, skin intact.
MUSCULOSKELETAL: No edema, well perfused. neg robi's sign
PSYCH: Normal and appropriate interaction.
Course
<Yulissa Rust PA-C - Last Filed: 11/03/23 15:23>
Orders/Labs/Results
Orders:
Orders
11/03/23 10:22
Ribs, Right 3 View W/PA Chest [CR Ribs-right 3 Vw W/pa Chest*] Urgent
Comment:
Reason For Exam: fall going up the steps
11/03/23 12:45
CT Chest W/o Iv Contrast Urgent
Comment: also right rib trauma
Reason For Exam: L pleural effusion vs pna;
11/03/23 12:47
Electrocardiogram (*1) Stat
Reason for Study: Other
Other Reason for Exam: chest pain
Cardiac Monitoring- Treatment ONCE
EKG- Treatment ONCE
11/03/23 12:55
Complete Blood Count/With Diff Urgent
Comprehensive Metabolic Panel Urgent
NT-proBNP Urgent
Troponin I Urgent
Comment: ADDED
11/03/23 13:41
Add On- LAB Urgent
Tests Added?: troponin
11/03/23 13:46
Procalcitonin Urgent
PCT Algorithmm Indication: Respiratory
Blood Culture Q30M
EMELY Source: Blood/Venous
Specimen Description:
Blood Culture Q30M
EMELY Source: Blood/Venous
Specimen Description:
11/03/23 14:43
Piperacillin/Tazo 3.375 Gram [Zosyn] 3.375 gram in 50 ml IV NOW
Abnormal Lab Results
11/03/23 11/03/23
12:55 13:46
RBC 2.65 L 10^6/uL
(4.70-6.10)
Hgb 8.4 L g/dL
(13.0-18.0)
Hct 25.6 L %
(39.0-52.0)
MCV 96.6 H fL
(80.0-94.0)
MCH 31.7 H pg
(27.0-31.0)
MCHC 32.8 L g/dL
(33.0-37.0)
RDW 18.2 H %
(11.5-14.5)
Plt Count 105 L 10^3/uL
(130-400)
Abs Immat Gran (auto) 0.3 H 10^3/uL
(0-0.05)
Absolute Lymphs (auto) 0.4 L 10^3/uL
(1.2-3.4)
Immature Gran % 6.2 H %
(0-0.5)
Neutrophils % 78.9 H %
(42.2-75.2)
Lymphocytes % 6.7 L %
(20.5-51.1)
Sodium 124 L mmol/L
(135-145)
BUN 38 H mg/dl
(9-20)
Creatinine 2.5 H mg/dL
(0.7-1.3)
Glucose 141 H mg/dl
(70-99)
Total Protein 10.8 H g/dl
(6.3-8.2)
Albumin 2.7 L g/dl
(3.5-5.0)
Procalcitonin 1.71 H ng/ml
(0.0-0.25)
11/03/23 12:55
11/03/23 12:55
Vital Signs
Initial and Last Documented VS:
Initial Vital Signs
Temp Pulse Resp BP Pulse Ox
97.9 F 117 17 105/64 93
11/03/23 10:21 11/03/23 10:21 11/03/23 10:21 11/03/23 10:21 11/03/23 10:21
Last Documented Vital Signs
Temp Pulse Resp BP Pulse Ox
97.9 F 107 28 104/62 92
11/03/23 10:21 11/03/23 15:00 11/03/23 15:00 11/03/23 15:00 11/03/23 15:00
<Levy Roy MD - Last Filed: 11/03/23 14:07>
Orders/Labs/Results
Orders:
Orders
11/03/23 10:22
Ribs, Right 3 View W/PA Chest [CR Ribs-right 3 Vw W/pa Chest*] Urgent
Comment:
Reason For Exam: fall going up the steps
11/03/23 12:45
CT Chest W/o Iv Contrast Urgent
Comment: also right rib trauma
Reason For Exam: L pleural effusion vs pna;
11/03/23 12:47
Electrocardiogram (*1) Stat
Reason for Study: Other
Other Reason for Exam: chest pain
Cardiac Monitoring- Treatment ONCE
EKG- Treatment ONCE
11/03/23 12:55
Complete Blood Count/With Diff Urgent
Comprehensive Metabolic Panel Urgent
NT-proBNP Urgent
Troponin I Urgent
Comment: ADDED
11/03/23 13:41
Add On- LAB Urgent
Tests Added?: troponin
11/03/23 13:46
Procalcitonin Urgent
PCT Algorithmm Indication: Respiratory
Blood Culture Q30M
EMELY Source: Blood/Venous
Specimen Description:
Blood Culture Q30M
EMELY Source: Blood/Venous
Specimen Description:
11/03/23 14:43
Piperacillin/Tazo 3.375 Gram [Zosyn] 3.375 gram in 50 ml IV NOW
Abnormal Lab Results
11/03/23 11/03/23
12:55 13:46
RBC 2.65 L 10^6/uL
(4.70-6.10)
Hgb 8.4 L g/dL
(13.0-18.0)
Hct 25.6 L %
(39.0-52.0)
MCV 96.6 H fL
(80.0-94.0)
MCH 31.7 H pg
(27.0-31.0)
MCHC 32.8 L g/dL
(33.0-37.0)
RDW 18.2 H %
(11.5-14.5)
Plt Count 105 L 10^3/uL
(130-400)
Abs Immat Gran (auto) 0.3 H 10^3/uL
(0-0.05)
Absolute Lymphs (auto) 0.4 L 10^3/uL
(1.2-3.4)
Immature Gran % 6.2 H %
(0-0.5)
Neutrophils % 78.9 H %
(42.2-75.2)
Lymphocytes % 6.7 L %
(20.5-51.1)
Sodium 124 L mmol/L
(135-145)
BUN 38 H mg/dl
(9-20)
Creatinine 2.5 H mg/dL
(0.7-1.3)
Glucose 141 H mg/dl
(70-99)
Total Protein 10.8 H g/dl
(6.3-8.2)
Albumin 2.7 L g/dl
(3.5-5.0)
Procalcitonin 1.71 H ng/ml
(0.0-0.25)
11/03/23 12:55
11/03/23 12:55
Vital Signs
Initial and Last Documented VS:
Initial Vital Signs
Temp Pulse Resp BP Pulse Ox
97.9 F 117 17 105/64 93
11/03/23 10:21 11/03/23 10:21 11/03/23 10:21 11/03/23 10:21 11/03/23 10:21
Last Documented Vital Signs
Temp Pulse Resp BP Pulse Ox
97.9 F 107 28 104/62 92
11/03/23 10:21 11/03/23 15:00 11/03/23 15:00 11/03/23 15:00 11/03/23 15:00
<Yulissa Rust PA-C - Last Filed: 11/03/23 15:23>
MDM/Problems Addressed
Differential Diagnosis Includes:
pna, pleural effusion, rib fx, ptx
MDM/Problems Addressed:
73 y/o M with h/o pulm htn, mult myeloma, chf on lasix, ckd
here with multiple compltains
intially just right rib epifanio after tripping up the steps
but also with 5 pounds ewight gain after dec lasix recently due to rising cr
and pt is tachypneic
not coughing, no fever
on cxr pt has new effusion and what looks like pna
compared to old imaging this is new
ct suspicious more for infection than atelectasis
sodoium 124, cr 2.5, trop neg, bnp elevated
procal elevated
will treat with zosyn, pt was hospitalized last month at [facility] and has multiple myeloma
s/o hospitalist.
<Yulissa Rust PA-C - Last Filed: 11/03/23 15:23>
*Critical Care Note
Total Time (30-74mins, 75-104mins- exclusive of procedures): Not Applicable
ED Attending Note
<Yulissa Rust PA-C - Last Filed: 11/03/23 15:23>
-
Portions of this chart may have been created with voice recognition software.� Occasional wrong word or��sound alike� substitutions may have occurred due to the inherent limitations of voice recognition software.
<Levy Roy MD - Last Filed: 11/03/23 14:07>
ED Attending Note
Patient seen and examined by attending physician: Yes
I performed the substantive portion of visit, reviewed & personally made and approve the management plan that is documented in note by myself or JIMI.: Yes
ED Attending Note:
73-year-old male presents with evaluation after a fall. Also noted to be shortness of breath. History of multiple myeloma. History of cardiac disease and renal disease. History of pulmonary hypertension.
On exam patient is mildly tachypneic at rest. He has got some rhonchi left greater than right base. Mildly tachycardic and regular.
Labs show a effusion/infiltrate left base. Progressive hyponatremia. Chronic renal disease and chronic anemia.
Patient warrants admission for tachypnea at rest, left lower lobe infiltrate/effusion, possible mild CHF and progressive hyponatremia.
Discharge Plan
Departure
Patient Disposition: Admit
Date of Disposition: 11/03/23
Time of Disposition: 14:42
Admit to: Telemetry
Presentation/result/management discussed w/ accepting MD/DO: Hospitalist
Condition: Fair
Covid-19: Not Applicable
Discharge Problem:
Pneumonia, Pleural effusion
Prescriptions:
No Action
aspirin 81 MG tablet,delayed release (DR/EC)
81 mg PO DAILY Qty: 0
red yeast rice 600 MG tablet
1,200 mg PO DAILY
cholecalciferol (vitamin D3) 1,000 UNITS tablet
1,000 units PO DAILY
cyanocobalamin (vitamin B-12) 1,000 mcg Tablet
1,000 mcg PO DAILY
acyclovir 400 mg Tablet
400 mg PO BID
tamsulosin [Flomax] 0.4 mg Capsule
0.4 mg PO QPM
dexamethasone 4 mg tablet
20 mg PO UD
Patient Comments:
10/22/22- patients take with he gets valcade infuison
Rx Instructions:
Take once weekly on before treatment for 3 weeks, 1 week off
loratadine [Claritin] 10 mg Tablet
10 mg PO DAILY PRN (Reason: allergies)
Xgeva 120 mg/1.7 mL (70 mg/mL) Solution
120 mg SC [id number]
coQ10 (ubiquinol) 100 mg Capsule
100 mg PO DAILY
zolpidem [Ambien] 5 mg Tablet
5 mg PO HS PRN (Reason: insomnia)
Patient Comments:
08/30/2023: last filled 04/23/23, 30 tabs for 30 days from [facility][id number]
furosemide [Lasix] 80 mg tablet
80 mg PO DAILY Qty: 60 0RF
sildenafil (pulm.hypertension) 20 mg Tablet
20 mg PO TID Qty: 90 0RF
Referrals:
Eloy Hunter MD [Family Provider] -
Interventions
Interventions:
*Risk Screen - Suicide Last Done: 11/03/23 10:21
*General Assessment Last Done: 11/03/23 10:21
*Neglect/Abuse Screening Last Done: 11/03/23 10:21
ED- Fall Risk Assessment Last Done: 11/03/23 11:29
*ED COVID-19 Vaccine History Last Done: 11/03/23 10:21
ED-Musculoskeletal Assessment Last Done: 11/03/23 11:27
Discharge Date and Time
Print Language: ESTONIAN
[2023-11-03 13:03] LABS: % Basophils 0.2 % (0-2); % Eosinophils 0.2 % (0-6); % Immature Granulocytes 6.2 % (0-0.5); % Lymphocytes 6.7 % (20.5-51.1); % Monocytes 7.8 % (1.7-9.3); % Neutrophils 78.9 % (42.2-75.2); Absolute Immature Granulocytes 0.3 10^3/uL (0-0.05); Absolute Lymphocytes 0.4 10^3/uL (1.2-3.4); Absolute Monocytes 0.4 10^3/uL (0.1-0.6); Absolute Neutrophils 4.4 10^3/uL (1.4-6.5); Hematocrit 25.6 % (39.0-52.0); Hemoglobin 8.4 g/dL (13.0-18.0); Mean Corp Hgb Conc. 32.8 g/dL (33.0-37.0); Mean Corpuscular Hgb 31.7 pg (27.0-31.0); Mean Corpuscular Volume 96.6 fL (80.0-94.0); Mean Platelet Volume 10.1 fL (7.4-10.4); Nucleated Red Blood Cells % 0 % (-); Platelet Count 105 10^3/uL (130-400); Red Blood Cell Count 2.65 10^6/uL (4.70-6.10); Red Cell Dist. Width 18.2 % (11.5-14.5); White Blood Cell Count 5.5 10^3/uL (4.8-10.8)
[2023-11-03 13:14] LABS: ALT (SGPT) 20 U/L (0-50); AST (SGOT) 23 U/L (17-59); Albumin 2.7 g/dl (3.5-5.0); Alkaline Phosphatase 72 U/L (38-126); Blood Urea Nitrogen 38 mg/dl (9-20); Carbon Dioxide 25 mmol/L (22-30); Chloride 103 mmol/L (98-107); Estimated Creatinine Clearance 28 ml/min; Glucose 141 mg/dl (70-99); Potassium 4.4 mmol/L (3.5-5.1); Sodium 124 mmol/L (135-145); Total Bilirubin 0.6 mg/dl (0.2-1.3); Total Protein 10.8 g/dl (6.3-8.2)
[2023-11-03 13:23] LABS: NT-proBNP 2760 pg/ml
[2023-11-03 14:29] LABS: Procalcitonin 1.71 ng/ml (0.0-0.25)
[2023-11-03] MEDS: ZOSYN 50 IV ×2 (15:03→23:39)
[2023-11-03 15:05] LABS: Troponin I < 0.012 ng/ml
--- NOTE | 2023-11-03 16:06 | HPS.HSE ---
Family Physician
-
Family Physician: Eloy Hunter
Chief Complaint
-
Fall and difficulty breathing.
History of Present Illness
73 y/o male with MM on treatment, had a hair cut and tripped and fell 2 steps. He has had some difficulty breathing. His creatinine was elevated and Lasix was decreased from 80 mg to 40 mg by oncology I also send he gained 5 pounds overnight. No
fever reported.
Patient has a history of multiple myeloma diagnosed in November 2020. He follows with Dr. Aleman at [facility] and also with Dr. Isa Lewis. He was maintained on Carfilzomib, Pomalidomide, and dexamethasone. When he developed pulmonary artery
hypertension he was switched to Tecvayli . (Last dose of Tecvayli was on . ) He was started on Ambrisentan and sildenafil which he still on.His creatinine was 1.8 in July and went up to 2.2 in late September 2023.
Patient is also maintained on acyclovir prophylaxis along with Bactrim prophylaxis for PCP which he has been taking. Daughter who is a pharmacist at bedside also indicates that his uric acid did go up when he had a gap in his treatment.
Medical History
Past Medical History
Past Medical History: Reports Other
Additional Past Medical History:
hypertension, diverticulosis, enlarged prostate, nephrolithiasis, history of prostate cancer, arthritis, multiple myeloma , chronic heart failure with preserved ejection fraction diabetes
Past Surgical History: Reports Other
Additional Past Surgical History:
Prostatectomy, cataract surgery
Social History
Tobacco: Former Smoker (Quit 40 years ago)
Alcohol: None
Drug: None
Personal:
Living: With Family
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
Family History
Family History: CAD (Father) and Other (Mother likely had myelodysplastic syndrome)
Allergies / Home Medications
Allergies reflects when Allergies were last updated in [facility].
Home Medications with original date entered in [facility]
Allergy/Medication List:
Allergies
Allergy/AdvReac Type Severity Reaction Status Date / Time
bacitracin Allergy redness Verified 09/09/23 10:19
[From Neosporin
([id number])]
neomycin Allergy redness Verified 09/09/23 10:19
[From Neosporin
([id number])]
polymyxin B Allergy redness Verified 09/09/23 10:19
[From Neosporin
([id number])]
Home Medications
aspirin 81 mg tablet,delayed release 81 mg PO DAILY Blood clot prevention/tx ##0 03/12/15
red yeast rice 600 mg tablet 1,200 mg PO DAILY Supplement 11/13/15
cholecalciferol (vitamin D3) 25 mcg (1,000 unit) tablet 1,000 units PO DAILY Supplement 08/20/20
acyclovir 400 mg tablet 400 mg PO BID Infection 10/22/22
coQ10 (ubiquinol) 100 mg capsule 100 mg PO DAILY Supplement 10/22/22
cyanocobalamin (vitamin B-12) 1,000 mcg tablet 1,000 mcg PO DAILY Supplement 10/22/22
denosumab 120 mg/1.7 mL (70 mg/mL) subcutaneous solution (Xgeva) 120 mg SC [id number] Cancer 10/22/22
dexamethasone 4 mg tablet 20 mg PO UD Anti-inflammatory 10/22/22
loratadine 10 mg tablet (Claritin) 10 mg PO DAILY PRN allergies 10/22/22
tamsulosin 0.4 mg capsule (Flomax) 0.4 mg PO QPM Urinary issue 10/22/22
zolpidem 5 mg tablet (Ambien) 5 mg PO HS PRN insomnia 01/15/23
furosemide 80 mg tablet (Lasix) 80 mg PO DAILY #60 tabs 08/31/23
sildenafil (pulm.hypertension) 20 mg tablet 20 mg PO TID #90 tabs 09/14/23
Bactrim DS 1 tablet p.o.3 times a week
Ambrisentan 10 mg PO daily
Lasix 40 mg p.o. daily for the past 4 days-was on 80 mg daily prior to that
Review of Systems
-
A 12 point ROS was completed and negative except as noted: Yes
Constitutional: Reports Weight Gain and Fatigue; Denies Fever
Respiratory: Reports Trouble Breathing (Mild)
Cardiac: Reports Other (Rib pain from falling); Denies Chest Pain
Physical Exam
Vital Signs
Vital Signs
Temp Pulse Resp BP Pulse Ox
97.9 F 107 28 104/62 92
11/03/23 10:21 11/03/23 15:00 11/03/23 15:00 11/03/23 15:00 11/03/23 15:00
Physical Exam
General: No Apparent Distress
Respiratory: Rales (Right base) and Decreased Breath Sounds (Left base)
Cardiac: S1/S2, Regular Rhythm and Murmur (Systolic murmur at apex)
GI: Soft and Non Tender
Musculoskeletal: Other (Mild pedal edema bilaterally)
Psych: Intact Judgment/Insight
Laboratory Results
-
11/03/23 12:55
11/03/23 12:55
Laboratory Results
Total Bilirubin 0.6 mg/dl (0.2-1.3) 11/03/23 12:55
AST 23 U/L (17-59) 11/03/23 12:55
ALT 20 U/L (0-50) 11/03/23 12:55
Alkaline Phosphatase 72 U/L (38-126) 11/03/23 12:55
Troponin I Cancelled 11/03/23 13:00
Data Reviewed
-
Diagnostic Radiology: Report Reviewed by me (Chest x-ray, no rib fracture, new left pleural effusion, moderate subpleural airspace consolidation in the left lower lobe consistent with pneumonia)
CT Scan: Report Reviewed by me (CT of the chest-small pleural effusion, moderate left lower lobe consolidation, numerous bilateral pulmonary nodules, stable hypodense hepatic lesion, probable splenomegaly, mild ascites)
Medical Tests (Nuc Med, Echo, EKG etc): Image Personally Visualized and interpreted (EKG-sinus tachycardia, right bundle branch block) and Report Reviewed by me (Echo 03/07/2022-normal LV size and systolic function. Ejection fraction 60 to 65%, mild
concentric LVH, normal diastolic function mild )
Impression/Plan
-
IMPRESSION/PLAN:
# Pneumonia left lower lobe consolidation small left pleural effusion
Admit for treatment in immunocompromised patient
Zosyn and doxycycline
Sputum culture if possible-blood cultures have been obtained
Check Legionella
Unlikely PCP is he is on prophylaxis
Infectious disease consultation
Check Covid 19
No hypoxia noted
# Refractory Multiple myeloma-on Tecvayli now with acyclovir and Bactrim prophylaxis
Patient follows with Dr. Aleman at [facility] and also Dr. Isa Lewis
# Acute kidney injury-on CKD-Check U/A and urine sodium.
Check uric acid levels to rule out Crystal induced nephropathy.
USS kidney and Bladder
Renal eval.
Hold off on Lasix
? Acyclovir needs to be changed
# Chronic heart failure with preserved ejection fraction-Lasix 80 mg normal dose was reduced to 40 mg 4 days ago because of elevated creatinine not on
ARB/Arni because of elevated creatinine.
While the patient has gained weight with this pneumonia and worsening renal function I would not initiate Lasix now.
He is not hypoxic
# Hyponatremia-check serum and urine osmolality studies, urine sodium, tsh,cortisol
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
# Anemia-due to multiple myeloma
# Thrombocytopenia-due to multiple myeloma
# Hypoalbuminemia
# Diabetes mellitus-diet controlled now
# History of prostate cancer status post prostatectomy and radiation-follows with Dr. Escalona-technically cleared with very low PSA-Continue Flomax
# Pulmonary nodules
# Vitamin B12 deficiency-on supplement
# Systemic hypertension-not on any medicines at present
# Chronic right bundle branch block
# Diverticulosis
# Sciatica
# Insomnia-continue Ambien
# Ex-smoker
# Fatty liver
# DVT prophylaxis-subcutaneous heparin
# Full code
Very complicated medical history and decision making
Time over 75 min
Detailed discussion with patient's , daughter who is a pharmacist at bedside regarding plan of care
[2023-11-03 17:27] LABS: Uric Acid < 0.5 mg/dl (3.5-8.5)
[2023-11-03 18:01] LABS: Osmolality Serum 289 mOsm/kg (275-300)
[2023-11-03] MEDS: VIBRAMYCIN 100 MG PO (18:36)
[2023-11-03] MEDS: FLOMAX 0.400000000000000022 MG PO (18:36)
--- NOTE | 2023-11-03 19:05 | TRANSFER ---
Received pt from ED. Pt transferred from stretcher contact guard. Pt AAO*4 pt c/o Right Rib pain 09/15. VSS. tele placed on patient #[id number]. Pt oriented to room/ unit.
--- NOTE | 2023-11-03 19:11 | W.CON.NEPH ---
Consultation
-
Date/Time Consultation Requested: November 03, 2023 6 PM
Date/Time Consultation Performed: November 03, 2023 7 PM
Requesting Provider: Dr. Martins
Performing Provider: Dr. Chiang
Reason for Consultation: Acute kidney injury edema
Medical History
-
Chief Complaint: Acute kidney injury
History of Present Illness:
Mr. Guidry is a 73-year-old gentleman with treatment refractory myeloma treated with Tecvayli recently. It was felt that this was not working and was subsequently discontinued on Sunday. His Bactrim which she was taking for prophylaxis was also
discontinued at that time. He was switched to Ambrisentan. He started this yesterday. He also has pulmonary hypertension which was found on a September admission for which he takes sildenafil 5 mg 3 times daily this is confirmed by him and his
daughter. After his September admission he was seen at [facility] where he was also admitted and received intravenous Lasix diuresis. They state that his creatinine at a maximal was 2.2 during admission. After discharge his weight was 84
kg and he was maintained on Lasix 80 mg daily. In October, his creatinine began to rise slowly and there was concern that the Lasix was responsible and he was reduced to 40 mg orally daily for the last 4 days. His weight has subsequently risen 10
pounds. He has no symptoms however. His creatinine had continued to rise now at 2.5 representing acute kidney injury. Recently he also had hypercalcemia at 11 as well as hyperuricemia at 16. In the oncology outpatient office he received
rasburicase. He did not recall treatment for his hypercalcemia though this also improved as well.
Today he fell 2 steps. For this as well as some shortness of breath he came to the emergency room and was admitted after suspicion for pneumonia on x-ray. We are asked to assist with management of his renal function and electrolytes. He is also
noted to have a sodium level of 124.
Past Medical History
Multiple myeloma
Prostate cancer
Type 2 diabetes mellitus
B12 deficiency
Diastolic congestive heart failure
Essential hypertension
Prostate cancer surgery
Stem cell harvest 2021
Pulmonary arterial hypertension
Social History
Tobacco: Non-Smoker
Alcohol: Occasional
Family History
Family History: Not Pertinent
Allergies / Home Medications
Allergy/AdvReac Type Severity Reaction Status Date / Time
bacitracin Allergy redness Verified 09/09/23 10:19
[From Neosporin
([id number])]
neomycin Allergy redness Verified 09/09/23 10:19
[From Neosporin
([id number])]
polymyxin B Allergy redness Verified 09/09/23 10:19
[From Neosporin
([id number])]
�Medication �Instructions �Recorded �Confirmed �Type
aspirin 81 mg tablet,delayed 81 mg PO DAILY Blood clot 03/12/15 11/03/23 History
release prevention/tx ##0
red yeast rice 600 mg tablet 1,200 mg PO DAILY Supplement 11/13/15 11/03/23 History
cholecalciferol (vitamin D3) 25 1,000 units PO DAILY Supplement 08/20/20 11/03/23 History
mcg (1,000 unit) tablet
acyclovir 400 mg tablet 400 mg PO BID Infection 10/22/22 11/03/23 History
coQ10 (ubiquinol) 100 mg capsule 100 mg PO DAILY Supplement 10/22/22 11/03/23 History
cyanocobalamin (vitamin B-12) 1,000 mcg PO DAILY Supplement 10/22/22 11/03/23 History
1,000 mcg tablet
denosumab 120 mg/1.7 mL (70 mg/mL) 120 mg SC [id number] Cancer 10/22/22 11/03/23 History
subcutaneous solution (Xgeva)
dexamethasone 4 mg tablet 20 mg PO UD Anti-inflammatory 10/22/22 11/03/23 History
loratadine 10 mg tablet (Claritin) 10 mg PO DAILY PRN allergies 10/22/22 11/03/23 History
tamsulosin 0.4 mg capsule (Flomax) 0.4 mg PO QPM Urinary issue 10/22/22 11/03/23 History
zolpidem 5 mg tablet (Ambien) 5 mg PO HS PRN insomnia 01/15/23 11/03/23 History
furosemide 80 mg tablet (Lasix) 80 mg PO DAILY #60 tabs 08/31/23 11/03/23 Rx
sildenafil (pulm.hypertension) 20 20 mg PO TID #90 tabs 09/14/23 11/03/23 Rx
mg tablet
Review of Systems
-
Shortness of breath mild. No chest pain no abdominal pain. No issues with urine output. Appetite has been normal. Minimal edema reported and unchanged. The remainder of the complete review of systems was negative.
Physical Exam
Vital Signs
Vital Signs
Temp Pulse Resp BP Pulse Ox
98.6 F 112 20 138/74 94
11/03/23 18:15 11/03/23 18:15 11/03/23 18:15 11/03/23 18:15 11/03/23 18:37
Lab Results
WBC 5.5 10^3/uL (4.8-10.8) 11/03/23 12:55
RBC 2.65 10^6/uL (4.70-6.10) L 11/03/23 12:55
Hgb 8.4 g/dL (13.0-18.0) L 11/03/23 12:55
Hct 25.6 % (39.0-52.0) L 11/03/23 12:55
Plt Count 105 10^3/uL (130-400) L 11/03/23 12:55
Sodium 124 mmol/L (135-145) L 11/03/23 12:55
Potassium 4.4 mmol/L (3.5-5.1) 11/03/23 12:55
Chloride 103 mmol/L (98-107) 11/03/23 12:55
Carbon Dioxide 25 mmol/L (22-30) 11/03/23 12:55
BUN 38 mg/dl (9-20) H 11/03/23 12:55
Creatinine 2.5 mg/dL (0.7-1.3) H 11/03/23 12:55
eGFR 26.30 11/03/23 12:55
Glucose 141 mg/dl (70-99) H 11/03/23 12:55
Calcium 9.0 mg/dl (8.4-10.2) 11/03/23 12:55
Cwn-C-Mclpfqjefdt Pept 2760 pg/ml 11/03/23 12:55
Albumin 2.7 g/dl (3.5-5.0) L 11/03/23 12:55
Physical Exam
Patient is awake alert oriented and in no distress. Mood and affect were pleasant, insight and judgment were good. Pupils are equal round and reactive to light, extraocular movements are intact, sclera were anicteric. Hearing was normal, ears and
nose are intact. Oropharynx was clear. Neck was supple with trachea midline and no thyromegaly. Heart was regular rate and rhythm without rubs. Lower extremities with 1+ edema. Lungs were clear to auscultation bilaterally and with normal
excursion. Abdomen was soft, nontender, with normal active bowel sounds, and no hepatosplenomegaly. Skin was without rash and with normal turgor.
Data Reviewed
-
Radiology: Image Personally Visualized and interpreted (Chest x-ray on November 03, 2023 by my reading shows left lower lobe opacity, left effusion, right upper lobe nodules)
CT Scan: Report Reviewed by me (CT chest without contrast on November 03, 2023 shows left lower lobe consolidation multiple pulm nodules, hypodense liver lesion, mild ascites)
Medical Tests (Nuc Med, Echo etc): Image Personally Visualized and interpreted (EKG on 11/03/2023 by read shows sinus tachycardia with right bundle branch block)
Labs: Labs Reviewed by me (Sodium 124, potassium 4.4, bicarb 25, BUN 30, creatinine 2.5, calcium 9, uric acid less than 0.5, proBNP 2760, troponin less than 0.012)
Old Records: Reviewed (On November 01, 2023 calcium 10.7 uric acid 16 creatinine 2.0 sodium 132)
Assessment/Plan
-
Assessment
Multiple myeloma refractory to treatment
Right ventricular heart failure with preserved ejection fraction
Diabetes mellitus type 2
Acute kidney injury
Hyponatremia
Anemia
Left lower lobe pneumonia
Edema
Plan
I do not believe the diuretics are responsible for his acute kidney injury. However, his weights are elevated he does have pulmonary hypertension and so IV Lasix 40 mg will be given today
We will follow his basic metabolic profile. I suspect that his rising creatinine is a consequence of his difficult to control myeloma. We may also be seeing aftereffects from the hyperuricemia and hypercalcemia still
I suspect that his hyponatremia is in part pseudohyponatremia given that he has extremely high levels of IgG kappa
Basic fluid restriction
Repeat urine studies
Doxycycline for pneumonia
Sildenafil dosing has been adjusted after reconciliation with the patient and his daughter
We discussed the possibility of kidney biopsy given that he has multiple possibilities for myeloma affecting the kidney (hyperuricemia, hypercalcemia, myeloma kidney/cast nephropathy). While this would not change overall treatment, it may allow
more focused attention on nonrenal issues
[2023-11-03 20:27] LABS: Cortisol, Random 11.5 ug/dl
[2023-11-03 20:43] LABS: TSH 1.89 uIU/ml (0.47-4.68)
[2023-11-03] MEDS: REVATIO 5 MG PO (21:42)
[2023-11-03] MEDS: MUCINEX 600 MG PO (21:44)
[2023-11-03] MEDS: ZOVIRAX 400 MG PO (21:44)
[2023-11-03] MEDS: HEPARIN 5000 UNITS SC (21:44)
[2023-11-03] MEDS: LASIX 40 MG IV (21:45)
[2023-11-03 22:48] LABS: Osmolality Urine 258 mOsm/kg (300-900)
[2023-11-03 23:04] LABS: COVID-19 Antigen Negative (Negative)
[2023-11-03 23:05] LABS: Urine Albumin Trace (Neg - Trace); Urine Bilirubin Negative (Negative); Urine Character Clear (Clear); Urine Color Yellow; Urine Glucose Negative (Negative); Urine Ketone Negative (Negative); Urine Leukocyte Negative (Negative); Urine Nitrite Negative (Negative); Urine Occult Blood 2+ (Negative); Urine Squamous Cell 0-2 /LPF (Few); Urine Urobilinogen Negative (Neg - 1+)
[2023-11-03 23:06] LABS: Urine Bacteria Moderate (Negative); Urine Red Blood Cell 0-2 /HPF (0-2); Urine Sodium 9 mmol/L (30-90); Urine White Cell 0-2 /HPF (0-5)
[2023-11-04 03:20] VITALS: BP 102/61
[2023-11-04] MEDS: ZOSYN 50 IV ×2 (05:56→11:06)
[2023-11-04 07:00] VITALS: BP 104/60
[2023-11-04 07:11] LABS: Blood Urea Nitrogen 39 mg/dl (9-20); Calcium 8.3 mg/dl (8.4-10.2); Carbon Dioxide 21 mmol/L (22-30); Chloride 103 mmol/L (98-107); Estimated Creatinine Clearance 26 ml/min; Glucose 94 mg/dl (70-99); Potassium 3.6 mmol/L (3.5-5.1); Sodium 128 mmol/L (135-145); eGFR 23.98
[2023-11-04 07:13] LABS: % Basophils 0.4 % (0-2); % Eosinophils 0.2 % (0-6); % Immature Granulocytes 5.8 % (0-0.5); % Lymphocytes 14.4 % (20.5-51.1); % Monocytes 8.7 % (1.7-9.3); % Neutrophils 70.5 % (42.2-75.2); Absolute Immature Granulocytes 0.3 10^3/uL (0-0.05); Absolute Lymphocytes 0.7 10^3/uL (1.2-3.4); Absolute Monocytes 0.4 10^3/uL (0.1-0.6); Absolute Neutrophils 3.2 10^3/uL (1.4-6.5); Hematocrit 24.3 % (39.0-52.0); Mean Corp Hgb Conc. 32.9 g/dL (33.0-37.0); Mean Corpuscular Hgb 32.1 pg (27.0-31.0); Mean Corpuscular Volume 97.6 fL (80.0-94.0); Mean Platelet Volume 10.9 fL (7.4-10.4); Nucleated Red Blood Cells % 0 % (-); Platelet Count 111 10^3/uL (130-400); Red Blood Cell Count 2.49 10^6/uL (4.70-6.10); Red Cell Dist. Width 17.8 % (11.5-14.5); White Blood Cell Count 4.5 10^3/uL (4.8-10.8)
[2023-11-04] MEDS: HEPARIN 5000 UNITS SC ×2 (07:46→20:19)
[2023-11-04] MEDS: ASPIR LOW (ENTERIC COATED) 81 MG PO (07:46)
[2023-11-04] MEDS: MUCINEX 600 MG PO (07:46)
[2023-11-04] MEDS: ZOVIRAX 400 MG PO (07:47)
[2023-11-04] MEDS: REVATIO 5 MG PO ×3 (07:47→20:20)
[2023-11-04] MEDS: VITAMIN B-12 1000 MCG PO (07:48)
[2023-11-04] MEDS: VIBRAMYCIN 100 MG PO ×2 (07:48→20:20)
--- NOTE | 2023-11-04 10:26 | CON.CAR ---
Consultation
Consultation Request
Date/Time Consultation Requested: 11/03/2023 16: 00
Date/Time Consultation Performed: 11/04/2023 7: 30
Requesting Provider: Lakshmi
Performing Provider: Jo
Reason for Consultation: chf
Medical History
-
Chief Complaint: Right rib pain after fall
History of Present Illness:
Dasia has a history of diastolic CHF, pulmonary hypertension, hypertension, multiple myeloma followed at [place] ( Dr. Aleman) and Dr. Lewis, prostate cancer status post prostatectomy, mild aortic stenosis, type 2 diabetes with fatty infiltrate, renal
insufficiency, right bundle branch block, radiation colitis, lumbar spine disease, diverticulitis in 2015, kidney stones, dyslipidemia, atherosclerosis of coronary arteries and aorta on CT imaging
Past surgical history: Prostatectomy Dr. Escalona 2020, bilateral pelvic lymphadenectomy 2020, cataract surgery
He suffered a fall and was seen in the ER with complaint of right rib pain. Subsequent workup revealed right-sided pneumonia and acute diastolic CHF with worsening renal insufficiency. Of note Lasix was decreased to 40 mg daily because of renal
sufficiency by oncology 1 week ago. At present time he denies complaints. He has fatigue which has been chronic.
Past Medical History
Past Medical History: Other (See HPI)
Past Surgical History: Other (See HPI)
Social History
Tobacco: Non-Smoker
Alcohol: Occasional
Drug: None
Personal:
Living: With Family
Employment: Retired
Family History
Family History: CAD (Father of heart disease, mother had diabetes)
Allergies / Home Medications
Allergy/AdvReac Type Severity Reaction Status Date / Time
bacitracin Allergy redness Verified 09/09/23 10:19
[From Neosporin
([id number])]
neomycin Allergy redness Verified 09/09/23 10:19
[From Neosporin
([id number])]
polymyxin B Allergy redness Verified 09/09/23 10:19
[From Neosporin
([id number])]
�Medication �Instructions �Recorded �Confirmed �Type
aspirin 81 mg tablet,delayed 81 mg PO DAILY Blood clot 03/12/15 11/03/23 History
release prevention/tx ##0
red yeast rice 600 mg tablet 1,200 mg PO DAILY Supplement 11/13/15 11/03/23 History
cholecalciferol (vitamin D3) 25 1,000 units PO DAILY Supplement 08/20/20 11/03/23 History
mcg (1,000 unit) tablet
acyclovir 400 mg tablet 400 mg PO BID Infection 10/22/22 11/03/23 History
coQ10 (ubiquinol) 100 mg capsule 100 mg PO DAILY Supplement 10/22/22 11/03/23 History
cyanocobalamin (vitamin B-12) 1,000 mcg PO DAILY Supplement 10/22/22 11/03/23 History
1,000 mcg tablet
denosumab 120 mg/1.7 mL (70 mg/mL) 120 mg SC [id number] Cancer 10/22/22 11/03/23 History
subcutaneous solution (Xgeva)
dexamethasone 4 mg tablet 20 mg PO UD Anti-inflammatory 10/22/22 11/03/23 History
loratadine 10 mg tablet (Claritin) 10 mg PO DAILY PRN allergies 10/22/22 11/03/23 History
tamsulosin 0.4 mg capsule (Flomax) 0.4 mg PO QPM Urinary issue 10/22/22 11/03/23 History
zolpidem 5 mg tablet (Ambien) 5 mg PO HS PRN insomnia 01/15/23 11/03/23 History
furosemide 80 mg tablet (Lasix) 80 mg PO DAILY #60 tabs 08/31/23 11/03/23 Rx
sildenafil (pulm.hypertension) 20 20 mg PO TID #90 tabs 09/14/23 11/03/23 Rx
mg tablet
Review of Systems
-
History Source: Patient
All other systems: Negative unless noted
Constitutional: Weight Gain (Weight gain of approximately 5 pounds over the past week after Lasix was decreased)
EENT: No Symptoms
Respiratory: Trouble Breathing
Cardiac: No Symptoms
Abdomen/GI: No Symptoms
: No Symptoms
Musculoskeletal: Other (Right rib pain after fall)
Skin: No Symptoms
Neurological: No Symptoms
Endocrine: No Symptoms
Hematologic/Lymphatic: No Symptoms
Physical Exam
Vital Signs
Temp Pulse Resp BP Pulse Ox
98.3 F 110 18 104/60 94
11/04/23 07:00 11/04/23 07:00 11/04/23 07:00 11/04/23 07:00 11/04/23 07:00
General: Well developed, well nourished in NAD.
Neck: Supple, no JVD, HJR, carotids +2 B/L, no bruits bilaterally.
Heart: Non displaced PMI, RRR, 2/6 basal systolic murmur, No S3, S4, no rubs.
Lungs: Crackles at the left base
Extremities: No clubbing, cyanosis or edema bilaterally.
Neuro: Grossly nonfocal, awake, alert and oriented x3.
Lab Results
11/04/23 05:20
11/04/23 05:20
Troponin I Cancelled 11/03/23 13:00
Twr-E-Gptoxbtvhrw Pept 2760 pg/ml 11/03/23 12:55
Impression / Plan
-
Director Business Development: Dr. Ginger Lal
Impression:
-Acute diastolic CHF
-Acute renal insufficiency
-Pneumonia
-Pulmonary hypertension and chronic RV dysfunction/heart failure with preserved ejection fraction
-Right-sided upper abdominal pain/rib pain likely related to right-sided diverticulitis noted on CT scan
-Mild aortic stenosis
-Hypertension
-Dyslipidemia on red yeast rice
-CT imaging noting coronary atherosclerosis without history of ME
-Aortic atherosclerosis without aneurysm
-Right bundle branch block
-Type 2 diabetes mellitus
-Fatty liver infiltration
-History of prostate cancer status post prostatectomy
-Active Multiple myeloma
-History of diverticulitis in 2016
-Degenerative joint disease of lumbar spine
Echocardiogram 08/30/2023: Ejection fraction 55 to 60%, D-shaped septum in systole and diastole consistent with RV pressure and volume overload, mild aortic stenosis with mean gradient of 11 mmHg aortic valve area 1.5 cm�, mild TR with PA systolic of
55 mmHg
Right heart catheterization 09/13/2023
Hemodynamics (mmHg):
RA (m) : 13
RV (s/d,m) : 77/12, 17
PA (s/d, m) : 77/23, 48
PCWP (m) : 18
Cardiac Output : 5.2 L/min
Cardiac Index : 2.5 L/min/m-2
Systemic vascular resistance: 13.5 Wood units or 1077 [id number](-5)
Pulmonary vascular resistance: 5.8 Wood units or 461 [id number]-[id number](-5)
RADIATION SUMMARY:� Fluoro Time (min): 1, Dose (mGy): 11, DAP (Gy.cm2) : 1.8
CONCLUSION:
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
Plan:
He presents with possible CHF with a 5 pound weight gain after Lasix have been decreased from 80 mg daily to 40 mg daily. proBNP was elevated as well
He received IV Lasix by nephrology but creatinine has worsened to 2.7
Of note his weight is similar to discharge weight in September 2023.
Hold Lasix for now.
Recheck echocardiogram
Discussed with primary service and is felt possible worsening renal insufficiency may be due to worsening multiple myeloma
Discussed with patient's by phone as well.
Data Reviewed
-
EKG: Tracing Personally Visualized and interpreted
Radiology: Report Reviewed by me
CT Scan: Report Reviewed by me
Medical Tests (Nuc Med, Echo etc): Report Reviewed by me
Labs: Labs Reviewed by me
Old Records: Reviewed
--- NOTE | 2023-11-04 10:50 | W.PN.NEPH.PH ---
Today's Communication / Plan
-
po lasix
Assessment/Plan
-
Assessment
Multiple myeloma refractory to treatment
Right ventricular heart failure with preserved ejection fraction
Diabetes mellitus type 2
Acute kidney injury
Hyponatremia
Anemia
Left lower lobe pneumonia
Edema
Plan
urine does not suggest myeloma kidney
it may be possible that rise in Cr preadmit was from recent hyperuricemia/hypercalcemia
recent rise overnight could be from rapid diuresis/weight loss
He is still above EDW and so will give regular lasix 80mg po today
follow BMP
continue doxycycline for PNA
check Ueso
-
-
Date of Service: November 04, 2023
CC / HPI / ROS
-
Chief Complaint:
ANAI
History of Present Illness:
ANAI/Cr up to 2.7
K stable
weights down after IV lasix
BP stable
Abx for PNA
Review of Systems:
no CP/SOB
Labs
-
Labs:
WBC 4.5 10^3/uL (4.8-10.8) L 11/04/23 05:20
RBC 2.49 10^6/uL (4.70-6.10) L 11/04/23 05:20
Hgb 8.0 g/dL (13.0-18.0) L 11/04/23 05:20
Hct 24.3 % (39.0-52.0) L 11/04/23 05:20
Plt Count 111 10^3/uL (130-400) L 11/04/23 05:20
Sodium 128 mmol/L (135-145) L 11/04/23 05:20
Potassium 3.6 mmol/L (3.5-5.1) 11/04/23 05:20
Chloride 103 mmol/L (98-107) 11/04/23 05:20
Carbon Dioxide 21 mmol/L (22-30) L 11/04/23 05:20
BUN 39 mg/dl (9-20) H 11/04/23 05:20
Creatinine 2.7 mg/dL (0.7-1.3) H 11/04/23 05:20
eGFR 23.98 11/04/23 05:20
Glucose 94 mg/dl (70-99) 11/04/23 05:20
Calcium 8.3 mg/dl (8.4-10.2) L 11/04/23 05:20
Duu-H-Tzbbgzhldgi Pept 2760 pg/ml 11/03/23 12:55
Albumin 2.7 g/dl (3.5-5.0) L 11/03/23 12:55
Physical Exam
-
Vital Signs:
Vital Signs
Temp Pulse Resp BP Pulse Ox
98.3 F 110 18 104/60 94
11/04/23 07:00 11/04/23 07:00 11/04/23 07:00 11/04/23 07:00 11/04/23 07:00
Cardiovascular:: Regular rate and rhythm
Respiratory:: Bilateral: Coarse
Lung Excursion:: Normal
Abdomen:: Nontender and Soft
Bowel Sounds:: Normal
Extremity Edema:: None: Bilateral:
[2023-11-04] MEDS: VITAMIN D3 (cholecalciferol) 25 MCG PO (11:06)
[2023-11-04] MEDS: LASIX 80 MG PO (11:07)
[2023-11-04 11:20] VITALS: BP 113/70
--- NOTE | 2023-11-04 11:40 | CON.ID ---
Consultation
-
Date/Time Consultation Requested: November 03, 2023 1803
Date/Time Consultation Performed: November 04, 2023 1140
Requesting Provider: Dr. Neel Martins
Performing Provider: Dr. Kamilah English
Reason for Consultation: PNA
Chief Complaint / Past History
Chief Complaint
Fall, right rib pain
History of Present Illness
73-year-old male with diabetes mellitus type 2, heart failure with preserved EF, refractory multiple myeloma recently changed regimen to Tecvayli about a month ago with prophylactic acyclovir and 3 times weekly Bactrim double strength. On Sunday he
went to get a haircut but he tripped on the steps of the [employer]. He landed on the right side. He scraped his knees and fingers which were bleeding. He then had persistent right-sided rib pain. He therefore came to the ER yesterday. The
rib/chest x-ray showed left lower lobe opacity with small pleural effusion. He then had chest CT which ruled out PE but showed moderate left lobe consolidation representing atelectasis or pneumonia. Patient reports no cough or shortness of
breath. Rib pain has resolved. No fevers or chills at home. No urinary symptoms. No abdominal pain or diarrhea. No ill contacts. his admission blood culture is now positive for Pseudomonas. Patient also noted to have progressive worsening
renal function outpatient. His Lasix dose was decreased.
Past History
Additional Past Medical History:
Refractory Multiple myeloma (Tecvayli)
DM type 2
Hypertension
Congestive heart failure preserved EF
Pulmonary hypertension
Nephrolithiasis
Pulmonary nodules
Diverticulitis
Fatty liver
hx [place] 9 prostate cancer s/p prostatectomy/XRT (2020)
Allergy History:
bacitracin [From Neosporin ([id number]-xnx-toljs)] Allergy (Verified 09/09/23 10:19)
redness
neomycin [From Neosporin (pfx-hpd-stsvi)] Allergy (Verified 09/09/23 10:19)
redness
polymyxin B [From Neosporin ([id number]-twb-gqjta)] Allergy (Verified 09/09/23 10:19)
redness
Medications Reviewed: Yes
Current Antibiotics:
Zosyn
Doxycycline
Social History
Tobacco: Former Smoker
Alcohol: None
Drug: None
Personal:
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
Family History
Family History: Not Pertinent
Review of Systems
Review of Systems
General: Negative Fever, Chills or Change in Appetite
HEENT: Negative Sinus Problems
Cardiovascular: Negative Chest Pain or Dyspnea
Respiratory: Negative Dyspnea or Cough
Gasteroenterology: Other (no diarrhea); Negative Nausea or Vomiting
Genital / Urological: Negative Dysuria or Flank Pain
Endocrine: Negative Weakness
Skin / Hair / Nails: Negative Rash
Neurological: Negative Headache or Dizziness
All systems: All other systems were reviewed and were negative
Vital Signs
Temp Pulse Resp BP Pulse Ox
98.3 F 110 18 104/60 94
11/04/23 07:00 11/04/23 11:07 11/04/23 07:00 11/04/23 11:07 11/04/23 07:00
Physical Exam
Physical Exam
Constitutional: No Acute Distress and Comfortable
Eyes: No Conjunctival Hemorrhage and Sclera Anicteric
Cardiovascular: Regular Rate and S1/S2
Pulmonary: Rales (crackles left base)
Gastrointestinal: Soft, Non Tender, Non Distended and Normal Bowel Sounds
Extremities: Negative Edema
Wound: Other (Abrasions/shallow wounds on several distal fingers, and knees)
Neurological: AO x 3
Lab / Diagnostic Study Results
11/04/23 05:20
11/04/23 05:20
Abs Immat Gran (auto) 0.3 10^3/uL (0-0.05) H 11/04/23 05:20
Absolute Neuts (auto) 3.2 10^3/uL (1.4-6.5) 11/04/23 05:20
Absolute Lymphs (auto) 0.7 10^3/uL (1.2-3.4) L 11/04/23 05:20
Absolute Monos (auto) 0.4 10^3/uL (0.1-0.6) 11/04/23 05:20
Absolute Basos (auto) 0.0 10^3/uL (0-0.2) 11/04/23 05:20
Immature Gran % 5.8 % (0-0.5) H 11/04/23 05:20
Neutrophils % 70.5 % (42.2-75.2) 11/04/23 05:20
Lymphocytes % 14.4 % (20.5-51.1) L 11/04/23 05:20
Monocytes % 8.7 % (1.7-9.3) 11/04/23 05:20
Eosinophils % 0.2 % (0-6) 11/04/23 05:20
Basophils % 0.4 % (0-2) 11/04/23 05:20
Procalcitonin 1.71 ng/ml (0.0-0.25) H 11/03/23 13:46
Urine WBC 0-2 /HPF (0-5) 11/03/23 22:35
Ur Squamous Epith Cells 0-2 /LPF (Few) 11/03/23 22:35
Microbiology Results
Micro:
11/03/23 13:46 Blood Culture - Preliminary
Blood/Venous Pseudomonas aeruginosa
Gram Stain - Preliminary
11/03/23 22:35 Legionella Urinary Antigen - Final
Urine Negative for Legionella pneumophila Serogroup 1 antigen.
A negative result does not rule out the possiblity of
Legionella infection due to other serogroups or species of
Legionella. Clinical correlation is recommended.
11/03/23 13:46 Blood Culture - Pending
Blood/Venous
11/03/[address]: Moderate left lower lobe consolidation. This may represent atelectasis or pneumonia. This is more suggestive of pneumonia. New. Numerous bilateral various sized rounded pulmonary nodules consistent with malignancy until proven
otherwise. Stable
Assessment / Plan
#Pseudomonas bacteremia
- probable source from recent falls sustaining several bleeding abrasions/wounds
- Narrow Zosyn to cefepime.
-Repeat blood cultures
# Possible LLL Pneumonia
- pt without respiratory symptoms
- procalcitonin can be falsely elevated in setting of ANAI.
- Can continue doxycycline for now.
# ANAI on CKD
- hold prophylactic Bactrim.
-Reduce prophylactic Acyclovir to 400mg daily.
# Refractory multiple myeloma (Tecvayli)
Care Review
Plan reviewed with: Physician (Dr. Martins)
--- NOTE | 2023-11-04 11:43 | CM ---
Patient seen bedside
HX MM
IA completed.
Patient lives with spouse in a 3 story home with 2 steps to enter.
Patients Bed and bath on 2nd floor.
Patient drives.
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
Has had [facility] in the past.
No hx acute or skilled rehab.
Independent prior to admission.
PT evals (P).
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
Pharmacy: [facility]
Plan: possible VN needs, await PT eval.
--- NOTE | 2023-11-04 12:48 | W.PN.HOSP.TC ---
Today's Communication/Plan
-
Antibiotics
repeat BC
Lasix
Follow Creat
Weight better
Assessment / Plan
Assessment / Plan
Feels okay
Cardiovascular system S1-S2 appreciated
Chest few rales bilaterally decreased breath sounds on the left side
Abdomen soft and nontender
No pedal edema
Pseudomonas in blood cultures 1 set
# Pneumonia left lower lobe consolidation small left pleural effusion
Admit for treatment in immunocompromised patient
Zosyn and doxycycline May change to cefepime-Doxy
Sputum culture if possible-blood cultures have been obtained
Check Legionella-negative
Unlikely PCP is he is on prophylaxis
Infectious disease consultation consulted
No hypoxia noted
Unclear if this is Pseudomonas pneumonia
# Refractory Multiple myeloma-on Tecvayli now with acyclovir and Bactrim prophylaxis
Patient follows with Dr. Aleman at [place] and also Dr. Isa Lewis
# Acute kidney injury-on CKD-Check U/A and urine sodium.
Uric acid levels are unremarkable
USS kidney and Bladder-moderate chronic bilateral chronic disease, no hydronephrosis, small volume ascites, hepatic steatosis
Renal eval appreciated
Lasix restarted
Slightly elevated creatinine likely secondary to Lasix yesterday. Follow
? Acyclovir needs to be changed
# Chronic heart failure with preserved ejection fraction-Lasix 80 mg normal dose was reduced to 40 mg 4 days ago because of elevated creatinine not on
ARB/Arni because of elevated creatinine.
While the patient has gained weight with this pneumonia and worsening renal function I would not initiate Lasix now.
He is not hypoxic
Lasix restarted at 80 mg daily
# Hyponatremia-check serum and urine osmolality studies, urine sodium, tsh,cortisol
Spuriously secondary to hypogammaglobulinemia
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
# Anemia-due to multiple myeloma
# Thrombocytopenia-due to multiple myeloma
# Hypoalbuminemia
# Diabetes mellitus-diet controlled now
# History of prostate cancer status post prostatectomy and radiation-follows with Dr. Escalona-technically cleared with very low PSA-Continue Flomax
# Pulmonary nodules
# Vitamin B12 deficiency-on supplement
# Systemic hypertension-not on any medicines at present
# Chronic right bundle branch block
# Diverticulosis
# Sciatica
# Insomnia-continue Ambien
# Ex-smoker
# Hepatic Steatosis
# DVT prophylaxis-subcutaneous heparin
# Full code
D/W Renal , Cards and ID
Anticipated Discharge: > 48 hours
Subjective/Interval History
-
Date of Service: November 04, 2023
Objective Data
-
Labs:
Laboratory Results
11/04/23
05:20
WBC 4.5 L
Hgb 8.0 L
Hct 24.3 L
Plt Count 111 L
Sodium 128 L
Potassium 3.6
Chloride 103
Carbon Dioxide 21 L
BUN 39 H
Creatinine 2.7 H
Glucose 94
Calcium 8.3 L
Vital Signs:
Vital Signs
Temp Pulse Resp BP Pulse Ox
97.7 F 103 18 113/70 93
11/04/23 11:20 11/04/23 11:20 11/04/23 11:20 11/04/23 11:20 11/04/23 11:20
I&O
11/03/23 11/04/23 11/05/23
06:59 06:59 06:59
Intake Total 240 / 240
Balance 240 / 240
[2023-11-04 15:20] VITALS: BP 106/71
[2023-11-04] MEDS: FLOMAX 0.400000000000000022 MG PO (17:21)
[2023-11-04 19:05] VITALS: BP 107/64
[2023-11-04] MEDS: MAXIPIME 2000 MG IV (20:20)
[2023-11-04] MEDS: STERILE WATER FOR INJECTION 10 ML IV (20:20)
[2023-11-04] MEDS: MUCINEX PO (20:20)
[2023-11-04 23:00] VITALS: BP 116/64
[2023-11-05 03:05] VITALS: BP 101/61
[2023-11-05 06:00] VITALS: BMI 30.4
[2023-11-05 08:00] VITALS: BP 101/67
[2023-11-05 08:02] LABS: Hematocrit 26.3 % (39.0-52.0); Hemoglobin 8.6 g/dL (13.0-18.0); Mean Corp Hgb Conc. 32.7 g/dL (33.0-37.0); Mean Corpuscular Hgb 31.9 pg (27.0-31.0); Mean Corpuscular Volume 97.4 fL (80.0-94.0); Mean Platelet Volume 10.7 fL (7.4-10.4); Platelet Count 115 10^3/uL (130-400); Red Cell Dist. Width 18.3 % (11.5-14.5); White Blood Cell Count 4.1 10^3/uL (4.8-10.8)
--- NOTE | 2023-11-05 08:20 | W.PN.HOSP.TC ---
Today's Communication/Plan
-
see bold
Assessment / Plan
Assessment / Plan
Gen: NAD, AAOx3.
Eyes: EOMI, PERRLA, no scleral icterus.
Neck: supple.
CV: RRR, +S1/S2, no m/r/g.
Resp: CTAB, no rales, wheezes, or rhonchi.
Abd: +BS, soft, NT, mild-mod distention with ascites
Skin: No rashes.
Neuro: CN 2-12 intact, non-focal.
Psych: Normal mood and affect.
11/03/23 13:46 Blood/Venous Blood Culture - Preliminary
No Growth in 24 hours- Final report to follow
11/03/23 13:46 Blood/Venous Blood Culture - Preliminary
Pseudomonas aeruginosa
11/03/23 13:46 Blood/Venous Gram Stain - Preliminary
11/03/23 22:35 Urine Legionella Urinary Antigen - Final
Negative for Legionella pneumophila Serogroup 1 antigen.
A negative result does not rule out the possiblity of
Legionella infection due to other serogroups or species of
Legionella. Clinical correlation is recommended.
Renal U/S:
1. MODERATE CHRONIC BILATERAL RENAL DISEASE.
2. No sonographic evidence for hydronephrosis or nephrolithiasis.
3. Small volume of ascites.
4. Severe diffuse hepatic steatosis.
CT chest: Small left pleural effusion. New. Moderate left lower lobe consolidation. This may represent atelectasis or pneumonia. This is more suggestive of pneumonia. New. Numerous bilateral various sized rounded pulmonary nodules consistent with
malignancy until proven otherwise. Stable. Stable hypodense hepatic lesion possibly hemangioma. Resect disease not excluded. Probable splenomegaly. Spleen is not completely imaged. Stable. Mild ascites about the upper abdomen. Progressed.
LLL Pneumonia with small left pleural effusion:
-immunocompromised patient
-COVID/Flu NEG, legionella urinary antigen negative
-BCxs above, one with Pseudomonas
-ID following
-currently on Cefepime/Doxy
Acute on chronic hyponatremia:
-serum Osm normal at 289
-UOsm 258, Eder 9
-TSH/cortisol normal
ANAI on CKD3b:
-renal following
-Renal U/S above, no hydro
-uric acid <0.5
-cont Lasix as per renal as dry wt up (will decide on dosing today based on Cr)
Chronic HFpEF:
-lasix dosing on a daily basis
-cardiology following
-check echo
Other problems:
Refractory Multiple myeloma: on Tecvayli with acyclovir and Bactrim prophylaxis. Follows with Dr. Aleman at [place] and also Dr. Isa Lewis.
Obesity due to excess calories, BMI 30.3, encourage weight loss, affects all aspects of care
Pulmonary hypertension (WHO Group 5): cont Ambrisentan/sildenafil
Anemia and thrombocytopenia due to multiple myeloma: Trend CBC (today with pancytopenia)
DM2: Diet controlled
h/o prostate CA s/p prostatectomy and XRT: technically cleared with very low PSA. Continue Flomax.
h/o Pulmonary nodules
Vitamin B12 deficiency
Chronic RBBB
Diverticulosis
Sciatica
Insomnia: continue Ambien
Hepatic Steatosis
FULL/Heparin
Total time spent on today's encounter was 50 minutes which included time spent in counseling the patient/family regarding diagnosis and treatment plan as listed above, goals of care, and symptom management. Case was discussed with nursing staff,
specialists, and care coordinators/case management. All labs and imaging personally reviewed by me. Remainder the time spent in detailed review of previous records, lab data, imaging, and other medical provider documentation.
Anticipated Discharge: 24 - 48 hours
Subjective/Interval History
-
Date of Service: November 05, 2023
Denies CP/SOB.
Objective Data
-
Labs:
Laboratory Results
11/05/23
07:19
WBC Pending
Hgb Pending
Hct Pending
Plt Count Pending
Sodium Pending
Potassium Pending
Chloride Pending
Carbon Dioxide Pending
BUN Pending
Creatinine Pending
Glucose Pending
Calcium Pending
Vital Signs:
Vital Signs
Temp Pulse Resp BP Pulse Ox
98.0 F 105 20 101/61 94
11/05/23 03:05 11/05/23 03:05 11/05/23 03:05 11/05/23 03:05 11/05/23 03:05
I&O
11/04/23 11/05/23 11/06/23
06:59 06:59 06:59
Intake Total 240 / 240
Balance 240 / 240
[2023-11-05 09:03] LABS: Blood Urea Nitrogen 41 mg/dl (9-20); Calcium 8.2 mg/dl (8.4-10.2); Carbon Dioxide 20 mmol/L (22-30); Chloride 106 mmol/L (98-107); Estimated Creatinine Clearance 27 ml/min; Glucose 99 mg/dl (70-99); Potassium 3.6 mmol/L (3.5-5.1); Sodium 129 mmol/L (135-145)
[2023-11-05] MEDS: VIBRAMYCIN 100 MG PO ×2 (10:03→20:21)
[2023-11-05] MEDS: MUCINEX 600 MG PO (10:03)
[2023-11-05] MEDS: ASPIR LOW (ENTERIC COATED) 81 MG PO (10:04)
[2023-11-05] MEDS: ZOVIRAX 400 MG PO ×2 (10:04→20:21)
[2023-11-05] MEDS: VITAMIN B-12 1000 MCG PO (10:05)
[2023-11-05] MEDS: HEPARIN 5000 UNITS SC ×2 (10:05→20:20)
[2023-11-05] MEDS: REVATIO 5 MG PO (10:06)
[2023-11-05] MEDS: VITAMIN D3 (cholecalciferol) 25 MCG PO (12:49)
--- NOTE | 2023-11-05 12:50 | W.PN.NEPH.PH ---
Today's Communication / Plan
-
lasix 80 mg daily as per home dose
Assessment/Plan
-
Assessment
Multiple myeloma refractory to treatment
Right ventricular heart failure with preserved ejection fraction
Diabetes mellitus type 2
Acute kidney injury
Hyponatremia
Anemia
Left lower lobe pneumonia
Edema
Plan
ANAI-felt to be from recent hyperuricemia/hypercalcemia
recent rise could be from rapid diuresis/weight loss
cr better today at 2.5
he will cont home dose of lasix now at 80mg PO daily
wt and edema decreasing
mild hyponatremia improving with diuresis
monitor met acidosis
abx per ID
echo is pending
d/w pt and at bedside
d/w ID, holding bactrim as he is not on active chemo
-
-
Date of Service: November 05, 2023
CC / HPI / ROS
-
Chief Complaint:
ANAI
History of Present Illness:
ANAI/Cr better at 2.5
K stable
weights down
BP stable
Abx for PNA
Review of Systems:
no CP/SOB
no fever
Labs
-
Labs:
WBC 4.1 10^3/uL (4.8-10.8) L 11/05/23 07:19
RBC 2.70 10^6/uL (4.70-6.10) L 11/05/23 07:19
Hgb 8.6 g/dL (13.0-18.0) L 11/05/23 07:19
Hct 26.3 % (39.0-52.0) L 11/05/23 07:19
Plt Count 115 10^3/uL (130-400) L 11/05/23 07:19
Sodium 129 mmol/L (135-145) L 11/05/23 07:19
Potassium 3.6 mmol/L (3.5-5.1) 11/05/23 07:19
Chloride 106 mmol/L (98-107) 11/05/23 07:19
Carbon Dioxide 20 mmol/L (22-30) L 11/05/23 07:19
BUN 41 mg/dl (9-20) H 11/05/23 07:19
Creatinine 2.5 mg/dL (0.7-1.3) H 11/05/23 07:19
eGFR 26.30 11/05/23 07:19
Glucose 99 mg/dl (70-99) 11/05/23 07:19
Calcium 8.2 mg/dl (8.4-10.2) L 11/05/23 07:19
Vkv-G-Zphidzkzwuv Pept 2760 pg/ml 11/03/23 12:55
Albumin 2.7 g/dl (3.5-5.0) L 11/03/23 12:55
Physical Exam
-
Vital Signs:
Vital Signs
Temp Pulse Resp BP Pulse Ox
98.0 F 104 20 101/67 93
11/05/23 08:00 11/05/23 08:00 11/05/23 08:00 11/05/23 08:00 11/05/23 08:00
Cardiovascular:: Regular rate and rhythm
Respiratory:: Bilateral: CTA
Lung Excursion:: Normal
Abdomen:: Nontender and Soft
Extremity Edema:: None: Bilateral: (trace)
Flowers Catheter: No
[2023-11-05 13:00] VITALS: BP 109/66
--- NOTE | 2023-11-05 13:35 | W.PN.ID1 ---
Date of Service
Date of Service: November 05, 2023
Today's Communication
Continue cefepime pending susceptibility data.
Assessment / Plan
#Pseudomonas bacteremia
- probable source from recent falls sustaining several bleeding abrasions/wounds
-Repeat blood cultures negative to date
- Continue cefepime pending sensitivity.
# Possible LLL Pneumonia
- pt without respiratory symptoms
- procalcitonin can be falsely elevated in setting of ANAI.
- Can continue doxycycline for now.
# ANAI on CKD, improving
# Refractory multiple myeloma (recent Tecvayli dsicontinued)
- no need to resume prophylactic Bactrim.
- Continue prophylactic acyclovir 400mg po bid.
#Additional Past Medical History:
Refractory Multiple myeloma
DM type 2
Hypertension
Congestive heart failure preserved EF
Pulmonary hypertension
Nephrolithiasis
Pulmonary nodules
Diverticulitis
Fatty liver
hx Patt 9 prostate cancer s/p prostatectomy/XRT (2020)
Chief Complaint
-: Bacteremia
Subjective / Review of Systems
Feels well.
Vital Signs / Physical Exam
Vital Signs
Vital Signs
Temp Pulse Resp BP Pulse Ox
98.0 F 104 20 101/67 93
11/05/23 08:00 11/05/23 08:00 11/05/23 08:00 11/05/23 08:00 11/05/23 08:00
Physical Exam
Constitutional: No Acute Distress and Comfortable
Cardiovascular: Regular Rate and S1/S2
Pulmonary: Clear
Gastrointestinal: Soft, Non Tender and Non Distended
Neurological: AO x 3
Objective Data
Lab Data
Lab Results
11/05/23 07:19
11/05/23 07:19
Estimated Creat Clear 27 ml/min 04/29/24 07:19
Total Bilirubin 0.6 mg/dl (0.2-1.3) 11/03/23 12:55
AST 23 U/L (17-59) 11/03/23 12:55
ALT 20 U/L (0-50) 11/03/23 12:55
Alkaline Phosphatase 72 U/L (38-126) 11/03/23 12:55
Most recent labs reviewed.
Micro Results:
11/04/23 13:13 Blood Culture - Preliminary
Blood/Venous No Growth in 24 hours- Final report to follow
11/03/23 13:46 Blood Culture - Preliminary
Blood/Venous Pseudomonas aeruginosa
Gram Stain - Preliminary
11/04/23 13:48 Blood Culture - Pending
Blood/Venous
11/03/23 13:46 Blood Culture - Preliminary
Blood/Venous No Growth in 24 hours- Final report to follow
11/03/23 22:35 Legionella Urinary Antigen - Final
Urine Negative for Legionella pneumophila Serogroup 1 antigen.
A negative result does not rule out the possiblity of
Legionella infection due to other serogroups or species of
Legionella. Clinical correlation is recommended.
11/03/[address]: Moderate left lower lobe consolidation. This may represent atelectasis or pneumonia. This is more suggestive of pneumonia. New. Numerous bilateral various sized rounded pulmonary nodules consistent with malignancy until proven
otherwise. Stable
Care Review
Plan reviewed with: Physician (Dr. Olivas)
[2023-11-05] MEDS: LASIX 80 MG PO (13:43)
[2023-11-05 13:49] LABS: Body Fluid for Eosinophils No Eosinophils seen
--- NOTE | 2023-11-05 14:02 | W.PN.CARDCBS ---
Today's Communication / Plan
-
Cardiac stable. Discussed with patient and family.
Diuretic dosing per nephrology.
He has pulmonary hypertension and was on sildenafil 20 mg 3 times daily and Ambrisentan 10 mg daily. Unclear why sildenafil was de-escalated to 5 mg 3 times daily. Will increase to 10 mg 3 times daily and if tolerates go back to dosing of 20 mg 3
times daily which is appropriate dosing for pulmonary hypertension.
Impression / Plan
-
Assessment Analyst: Dr. Ginger Lal
Impression:
-Acute on chronic diastolic CHF
-Acute renal insufficiency in the setting of multiple myeloma failing current treatment
-Pneumonia
-Pseudomonas bacteremia
-Pulmonary hypertension and chronic RV dysfunction/heart failure with preserved ejection fraction
-Right-sided upper abdominal pain/rib pain likely related to right-sided diverticulitis noted on CT scan
-Mild aortic stenosis
-Hypertension
-Dyslipidemia on red yeast rice
-CT imaging noting coronary atherosclerosis without history of RI
-Aortic atherosclerosis without aneurysm
-Right bundle branch block
-Type 2 diabetes mellitus
-Fatty liver infiltration
-History of prostate cancer status post prostatectomy
-Active Multiple myeloma
-History of diverticulitis in 2016
-Degenerative joint disease of lumbar spine
Hyponatremia
Echocardiogram 08/30/2023: Ejection fraction 55 to 60%, D-shaped septum in systole and diastole consistent with RV pressure and volume overload, mild aortic stenosis with mean gradient of 11 mmHg aortic valve area 1.5 cm�, mild TR with PA systolic of
55 mmHg
Echo 11/05/2023: Mildly reduced left ventricular systolic function. Global hypokinesis. Abnormal (paradoxical) septal motion consistent with left bundle branch block. Flattened septum in systole consistent with RV pressure overload. Left ventricular
ejection fraction is 40-45 %. Trace mitral regurgitation. Aortic valve peak/mean gradients are 23/15 mmHg. MARYELLEN 1.2 cm2. Mild aortic stenosis. Estimated pulmonary artery pressure of 30-35 mmHg.
Right heart catheterization 09/13/2023
Hemodynamics (mmHg):
RA (m) : 13
RV (s/d,m) : 77/12, 17
PA (s/d, m) : 77/23, 48
PCWP (m) : 18
Cardiac Output : 5.2 L/min
Cardiac Index : 2.5 L/min/m-2
Systemic vascular resistance: 13.5 Wood units or 1077 [id number](-5)
Pulmonary vascular resistance: 5.8 Wood units or 461 [id number]-rr(-5)
RADIATION SUMMARY:� Fluoro Time (min): 1, Dose (mGy): 11, DAP (Gy.cm2) : 1.8
CONCLUSION:
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
Plan:
Cardiac lowe and from a pulmonary hypertension point of view he remains stable. Volume status clinically stable. Nephrology is dosing diuretic. Near his usual baseline.
Initially he presented with possible CHF with a 5 pound weight gain after Lasix had been decreased from 80 mg daily to 40 mg daily. proBNP was elevated as well. This was in the setting of infection in addition.
Nephrology currently managing his diuretic. Elevation in creatinine more likely reflects myeloma than related to diuretic.
Current weight is near baseline. On discharge will need Lasix dosing to be determined 40 to 80 mg daily.
He already has follow-up with me.
He has pulmonary hypertension and was on sildenafil 20 mg 3 times daily and Ambrisentan 10 mg daily. Unclear why sildenafil was de-escalated to 5 mg 3 times daily. Will increase to 10 mg 3 times daily and if tolerates go back to dosing of 20 mg 3
times daily which is appropriate dosing for pulmonary hypertension.
Echocardiogram reviewed with improved PA pressure. Ejection fraction mildly depressed. Discussed with the patient and his daughters at the bedside. His daughter Bridget was on the phone.
Pulmonary nodule once again seen noted. He unfortunately has not been able to be seen in the pulmonary office given recurrent admissions. He understands the importance.
Have reached out to Dr. Lewis who he follows with for oncology. He also follows with Dr. Simon Solo at [facility] and they were considering 1 of 4 treatments. They will need to await patient getting over infection and then I would
be glad to assess from a cardiac point of view.
Recent fall for which he is working on increasing activity with physical therapy
Progress Note - Assessment Analyst
Subjective
Date of Service: November 05, 2023
Denies chest pain, palpitations and dizziness.
Objective
Labs:
11/05/23 07:19
11/05/23 07:19
Labs
Hgb 8.6 g/dL (13.0-18.0) L 11/05/23 07:19
Hct 26.3 % (39.0-52.0) L 11/05/23 07:19
Plt Count 115 10^3/uL (130-400) L 11/05/23 07:19
Sodium 129 mmol/L (135-145) L 11/05/23 07:19
Potassium 3.6 mmol/L (3.5-5.1) 11/05/23 07:19
BUN 41 mg/dl (9-20) H 11/05/23 07:19
Creatinine 2.5 mg/dL (0.7-1.3) H 11/05/23 07:19
Glucose 99 mg/dl (70-99) 11/05/23 07:19
Troponins
11/03/23 11/03/23
12:55 13:00
Troponin I < 0.012 Cancelled
Vital Signs and I&O:
Vital Signs
Temp Pulse Resp BP Pulse Ox
98.0 F 104 20 101/67 93
11/05/23 08:00 11/05/23 13:43 11/05/23 08:00 11/05/23 13:43 11/05/23 08:00
Vital Signs
Temp Pulse Resp BP Pulse Ox
98.0 F 104 20 101/67 93
11/05/23 08:00 11/05/23 13:43 11/05/23 08:00 11/05/23 13:43 11/05/23 08:00
Intake & Output
11/03/23 11/04/23 11/05/23 11/06/23
06:59 06:59 06:59 06:59
Intake Total 240 / 240
Balance 240 / 240
Physical Exam
Physical Exam
General: Well developed, well nourished in NAD.
Heart: Non displaced PMI, RRR, no murmurs, No S3, S4, no rubs.
Lungs: Clear to auscultation bilaterally, no wheeze, rhonchi, rubs bilaterally,
Extremities: No clubbing, cyanosis or edema bilaterally.
Neuro: Grossly nonfocal, awake, alert and oriented x3.
[2023-11-05 16:00] VITALS: BP 114/62
[2023-11-05 16:06] LABS: Protein/creatinine Ratio 6.4; Urine Protein 761 mg/dl
[2023-11-05] MEDS: REVATIO 10 MG PO ×2 (16:56→22:23)
[2023-11-05] MEDS: FLOMAX 0.400000000000000022 MG PO (16:56)
[2023-11-05 19:33] VITALS: BP 104/62
[2023-11-05] MEDS: STERILE WATER FOR INJECTION 10 ML IV (20:20)
[2023-11-05] MEDS: MAXIPIME 2000 MG IV (20:20)
[2023-11-05] MEDS: MUCINEX PO ×2 (20:21→20:39)
[2023-11-05 22:46] VITALS: BP 95/59
[2023-11-06 03:20] VITALS: BP 99/60
--- NOTE | 2023-11-06 08:23 | W.PN.HOSP.TC ---
Addendum entered and electronically signed by Petey Boateng MD 11/06/23 13:42:
Case discussed with the entire team including Amador Hagan Vuppali and Estela Carrington. The pt has been cleared for discharge.
Total time spent on d/c = 46 min. This included today's physical exam, progress note, review of laboratory and diagnostic data, preparation of discharge documents and prescriptions, and discussions about the pt's hospital course and discharge plan
with the patient and other faculty i on call medical assistant involved in the patient's care.
Addendum entered and electronically signed by Petey Boateng MD 11/06/23 11:22:
Sepsis, POA
Original Note:
Today's Communication/Plan
-
see bold
Assessment / Plan
Assessment / Plan
Gen: NAD, AAOx3.
Eyes: EOMI, PERRLA, no scleral icterus.
Neck: supple.
CV: remains RRR, +S1/S2, no m/r/g.
Resp: remains CTAB, no rales, wheezes, or rhonchi.
Abd: remains +BS, soft, NT, mild-mod distention with ascites
Skin: No rashes.
Neuro: CN 2-12 intact, non-focal.
Psych: Normal mood and affect.
11/03/23 13:46 Blood/Venous Blood Culture - Preliminary
Pseudomonas aeruginosa
11/03/23 13:46 Blood/Venous Gram Stain - Preliminary
11/04/23 13:48 Blood/Venous Blood Culture - Preliminary
No Growth in 24 hours- Final report to follow
11/03/23 13:46 Blood/Venous Blood Culture - Preliminary
No Growth in 48 hours- Final report to follow
11/04/23 13:13 Blood/Venous Blood Culture - Preliminary
No Growth in 24 hours- Final report to follow
11/03/23 22:35 Urine Legionella Urinary Antigen - Final
Negative for Legionella pneumophila Serogroup 1 antigen.
A negative result does not rule out the possibility of
Legionella infection due to other serogroups or species of
Legionella. Clinical correlation is recommended.
Renal U/S:
1. MODERATE CHRONIC BILATERAL RENAL DISEASE.
2. No sonographic evidence for hydronephrosis or nephrolithiasis.
3. Small volume of ascites.
4. Severe diffuse hepatic steatosis.
CT chest: Small left pleural effusion. New. Moderate left lower lobe consolidation. This may represent atelectasis or pneumonia. This is more suggestive of pneumonia. New. Numerous bilateral various sized rounded pulmonary nodules consistent with
malignancy until proven otherwise. Stable. Stable hypodense hepatic lesion possibly hemangioma. Resect disease not excluded. Probable splenomegaly. Spleen is not completely imaged. Stable. Mild ascites about the upper abdomen. Progressed.
Echo: Normal left ventricular chamber size. Normal left ventricular wall thickness.
Mildly reduced left ventricular systolic function. Global hypokinesis. Abnormal
(paradoxical) septal motion consistent with left bundle branch block. Flattened
septum in systole consistent with RV pressure overload. Left ventricular
ejection fraction is 40-45 %.
Mildly dilated right ventricle with normal right ventricular function.
Thickened mitral valve leaflets. Mitral valve opens normally. Trace mitral
regurgitation.
Trileaflet aortic valve. Thickened aortic valve with restricted leaflet motion.
Peak/mean gradients are 23/15 mmHg. Using an LVOT of 2.0 cm the calculated
valve area is 1.2 cm2. Mild aortic stenosis.
Structurally normal tricuspid valve. Tricuspid valve opens normally. Estimated
pulmonary artery pressure of 30-35 mmHg. Mild tricuspid regurgitation.
Compared to prior study 08/30/2023 ejection fraction in the setting of sinus
tachycardia is now 40 to 45% previously 55 to 60%. Pulmonary artery pressure
has improved from prior 55 mmHg to now 30 to 35 mmHg
LLL Pneumonia with small left pleural effusion:
-immunocompromised patient
-COVID/Flu NEG, legionella urinary antigen negative
-BCxs above, one with Pseudomonas
-ID following
-currently on Cefepime/Doxy
Acute on chronic hyponatremia:
-serum Osm normal at 289
-UOsm 258, Eder 9
-TSH/cortisol normal
-cont daily lasix as per renal
ANAI on CKD3b:
-renal following
-Renal U/S above, no hydro
-uric acid <0.5
-cont daily lasix as per renal
Chronic HFpEF:
-cont Lasix
-echo above
-cardiology following
Other problems:
Refractory Multiple myeloma: on Tecvayli with acyclovir and Bactrim prophylaxis. Follows with Dr. Aleman at [place] and also Dr. Isa Lewis.
Obesity due to excess calories, BMI 30.3, encourage weight loss, affects all aspects of care
Pulmonary hypertension (WHO Group 5): cont Ambrisentan/sildenafil
Anemia and thrombocytopenia due to multiple myeloma: Trend CBC (today with pancytopenia)
DM2: Diet controlled
h/o prostate CA s/p prostatectomy and XRT: technically cleared with very low PSA. Continue Flomax.
h/o Pulmonary nodules
Vitamin B12 deficiency
Chronic RBBB
Diverticulosis
Sciatica
Insomnia: continue Ambien
Hepatic Steatosis
FULL/Heparin
Anticipated Discharge: Within 24 hours
Subjective/Interval History
-
Date of Service: November 06, 2023
Denies CP/SOB.
Objective Data
-
Vital Signs:
Vital Signs
Temp Pulse Resp BP Pulse Ox
98.5 F 106 24 99/60 93
11/06/23 03:20 11/06/23 03:20 11/06/23 03:20 11/06/23 03:20 11/06/23 03:20
I&O
11/05/23 11/06/23 11/07/23
06:59 06:59 06:59
Intake Total 540 / 540
Balance 540 / 540
[2023-11-06] MEDS: VITAMIN D3 (cholecalciferol) 25 MCG PO (08:35)
[2023-11-06] MEDS: MUCINEX PO (08:35)
[2023-11-06] MEDS: VITAMIN B-12 1000 MCG PO (08:35)
[2023-11-06] MEDS: ASPIR LOW (ENTERIC COATED) 81 MG PO (08:35)
[2023-11-06 08:36] VITALS: BP 115/57
[2023-11-06] MEDS: ZOVIRAX 400 MG PO (08:36)
[2023-11-06] MEDS: REVATIO 10 MG PO ×2 (08:36→15:41)
[2023-11-06] MEDS: VIBRAMYCIN 100 MG PO (08:36)
[2023-11-06] MEDS: HEPARIN 5000 UNITS SC (08:43)
[2023-11-06 09:03] LABS: Hematocrit 23.2 % (39.0-52.0); Hemoglobin 7.8 g/dL (13.0-18.0); Mean Corp Hgb Conc. 33.6 g/dL (33.0-37.0); Mean Corpuscular Hgb 32.6 pg (27.0-31.0); Mean Corpuscular Volume 97.1 fL (80.0-94.0); Mean Platelet Volume 10.7 fL (7.4-10.4); Platelet Count 120 10^3/uL (130-400); Red Blood Cell Count 2.39 10^6/uL (4.70-6.10); Red Cell Dist. Width 18.3 % (11.5-14.5); White Blood Cell Count 4.7 10^3/uL (4.8-10.8)
[2023-11-06 09:16] LABS: Blood Urea Nitrogen 42 mg/dl (9-20); Calcium 7.6 mg/dl (8.4-10.2); Carbon Dioxide 23 mmol/L (22-30); Chloride 105 mmol/L (98-107); Estimated Creatinine Clearance 30 ml/min; Glucose 148 mg/dl (70-99); Potassium 3.5 mmol/L (3.5-5.1); Sodium 130 mmol/L (135-145); eGFR 29.07
--- NOTE | 2023-11-06 10:10 | W.PN.NEPH.PH ---
Today's Communication / Plan
-
cont lasix daily
Assessment/Plan
-
Assessment
Multiple myeloma refractory to treatment
Right ventricular heart failure with preserved ejection fraction
Diabetes mellitus type 2
Acute kidney injury
Hyponatremia
Anemia
Left lower lobe pneumonia
Edema
Plan
ANAI-felt to be from recent hyperuricemia/hypercalcemia
recent rise could be from rapid diuresis/weight loss
cr better today at 2.3, U PCR 7.gm/gm of cr
he will cont home dose of lasix now at 80mg PO daily, echo noted EF 40-45%
wt and edema decreasing
mild hyponatremia improving with diuresis
monitor met acidosis
abx per ID
echo is pending
d/w pt
holding bactrim as he is not on active chemo
d/w plan
pt wishes to f/u Dr Chiang
-
-
Date of Service: November 06, 2023
CC / HPI / ROS
-
Chief Complaint:
ANAI
History of Present Illness:
ANAI/Cr better at 2.3
K stable
weights stable
BP stable
Abx for PNA
Review of Systems:
no CP/SOB
no fever
Labs
-
Labs:
WBC 4.7 10^3/uL (4.8-10.8) L 11/06/23 08:39
RBC 2.39 10^6/uL (4.70-6.10) L 11/06/23 08:39
Hgb 7.8 g/dL (13.0-18.0) L 11/06/23 08:39
Hct 23.2 % (39.0-52.0) L 11/06/23 08:39
Plt Count 120 10^3/uL (130-400) L 11/06/23 08:39
Sodium 130 mmol/L (135-145) L 11/06/23 08:39
Potassium 3.5 mmol/L (3.5-5.1) 11/06/23 08:39
Chloride 105 mmol/L (98-107) 11/06/23 08:39
Carbon Dioxide 23 mmol/L (22-30) 11/06/23 08:39
BUN 42 mg/dl (9-20) H 11/06/23 08:39
Creatinine 2.3 mg/dL (0.7-1.3) H 11/06/23 08:39
eGFR 29.07 11/06/23 08:39
Glucose 148 mg/dl (70-99) H 11/06/23 08:39
Calcium 7.6 mg/dl (8.4-10.2) L 11/06/23 08:39
Gsv-L-Ymuweavgnov Pept 2760 pg/ml 11/03/23 12:55
Albumin 2.7 g/dl (3.5-5.0) L 11/03/23 12:55
Physical Exam
-
Vital Signs:
Vital Signs
Temp Pulse Resp BP Pulse Ox
99.0 F 106 18 115/57 95
11/06/23 08:36 11/06/23 08:36 11/06/23 08:36 11/06/23 08:36 11/06/23 08:36
Cardiovascular:: Regular rate and rhythm
Respiratory:: Bilateral: CTA
Lung Excursion:: Normal
Abdomen:: Nontender and Soft
Extremity Edema:: None: Bilateral:
Flowers Catheter: No
[2023-11-06 10:23] VITALS: BMI 30.5
[2023-11-06] MEDS: LASIX 80 MG PO (10:34)
--- NOTE | 2023-11-06 11:00 | PN.CDI ---
CDI
- -
CDI:
Physician Documentation Request
Admit Date: 11/03/23 17:05
Dear Doctor Tasneem,
Please review the following and provide your response in the progress notes.
Clinical Indicators:
Pt admitted with PNA/ Acute on Chronic Diastolic CHF /MM immunocompromised
On admission HR 117, RR 31, WBC 4.5 on 11/03
Progress note 11/05,' LLL Pneumonia with small left pleural effusion:-immunocompromised patient..-BCxs above, one with Pseudomonas ID following currently on Cefepime/Doxy...'
Please clarify which of the following most accurately describes the status of the patient's infection:
Sepsis-POA
- Systemic manifestations of infection, with 2 or more SIRS criteria which include:
- Fever >100.4 degrees F or hypothermia < 96.8 degrees F
- Leukocytosis - WBC > 12,000 or leukopenia - WBC < 4,000 or > 10% bands
- Tachycardia > 90 beats per minute
- Tachypnea - RR > 20 breaths per minute or PaCO2 , 32mmHg
Source: Merck Manual 2013
Pneumonia only Without Systemic Illness
Other
Use of terms such as suspected, likely, concern for, or probable (associated with a specific diagnosis that is being evaluated, monitored, or treated as if it exists) are acceptable and can be coded in the inpatient setting, when documented at the
time of discharge.
Thank you,
Eliza Pan RN
CDI Specialist
[place] [facility]
Please use your independent medical judgment in providing your response.
[2023-11-06 11:30] VITALS: BP 101/63
--- NOTE | 2023-11-06 12:15 | W.PN.CARDCBS ---
Addendum entered and electronically signed by Thierno Covarrubias MD 11/06/23 20:31:
Patient interviewed. Will review. Agree with findings and recommendations.
Patient offers no complaints at this time.
Allergies, home medications, PMH/PSH/FH: Reviewed
ROS: No new complaint this he is comfortable.
127/71, pulse 116 respiratory rate 20, afebrile,
Head neck exam unremarkable diminished breath sounds, regular rate and rhythm, JVD okay, soft aortic stenosis murmur, trace to 1+ edema
Hemoglobin 7.8, sodium 130, potassium 3.5, creatinine 2.3
Plan:
He seems relatively compensated from the standpoint of acute on chronic HFpEF in regards to his pulmonary hypertension.
Discussed with Dr. Miles regarding sildenafil which will be increased back to 20 mg 3 times daily. Ambrisentan will continue at 10 mg a day.
Defer diuretic management to nephrology.
Antibiotic treatment for bacteremia per ID.
Anemia per hematology/oncology
Previously a had been on carvedilol which has been stopped. His outpatient could be considered for either bradycardia.
Okay for discharge from our standpoint.
Original Note:
Today's Communication / Plan
-
Increase sildenafil to 20 mg TID in AM
Cont ambrisentan at 10 mg daily
Impression / Plan
-
Mix Crusher Operator: Dr. Ginger Lal
Impression:
-Acute on chronic diastolic CHF
-Acute renal insufficiency in the setting of multiple myeloma failing current treatment
-Pneumonia
-Pseudomonas bacteremia
-Pulmonary hypertension and chronic RV dysfunction/heart failure with preserved ejection fraction
-Right-sided upper abdominal pain/rib pain likely related to right-sided diverticulitis noted on CT scan
-Mild aortic stenosis
-Hypertension
-Dyslipidemia on red yeast rice
-CT imaging noting coronary atherosclerosis without history of DC
-Aortic atherosclerosis without aneurysm
-Right bundle branch block
-Type 2 diabetes mellitus
-Fatty liver infiltration
-History of prostate cancer status post prostatectomy
-Active Multiple myeloma
-History of diverticulitis in 2016
-Degenerative joint disease of lumbar spine
Hyponatremia
Echocardiogram 08/30/2023: Ejection fraction 55 to 60%, D-shaped septum in systole and diastole consistent with RV pressure and volume overload, mild aortic stenosis with mean gradient of 11 mmHg aortic valve area 1.5 cm�, mild TR with PA systolic of
55 mmHg
Echo 11/05/2023: Mildly reduced left ventricular systolic function. Global hypokinesis. Abnormal (paradoxical) septal motion consistent with left bundle branch block. Flattened septum in systole consistent with RV pressure overload. Left ventricular
ejection fraction is 40-45 %. Trace mitral regurgitation. Aortic valve peak/mean gradients are 23/15 mmHg. MARYELLEN 1.2 cm2. Mild aortic stenosis. Estimated pulmonary artery pressure of 30-35 mmHg.
Right heart catheterization 09/13/2023
Hemodynamics (mmHg):
RA (m) : 13
RV (s/d,m) : 77/12, 17
PA (s/d, m) : 77/23, 48
PCWP (m) : 18
Cardiac Output : 5.2 L/min
Cardiac Index : 2.5 L/min/m-2
Systemic vascular resistance: 13.5 Wood units or 1077 [id number](-5)
Pulmonary vascular resistance: 5.8 Wood units or 461 [id number](-5)
RADIATION SUMMARY:� Fluoro Time (min): 1, Dose (mGy): 11, DAP (Gy.cm2) : 1.8
CONCLUSION:
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
Plan:
-Patient reports that he feels symptomatically improved and he wants to be discharged to home although his daughter thinks he might benefit from another day in the hospital.
-From a cardiac standpoint, it seems as though the sildenafil dose was lowered to 5 mg TID due to hypotension although this is not totally clear. Patient has tolerated the increase in the dose back to 10 mg TID starting 11/06/23 AM. Will increase to
sildenafil 20 mg TID starting 11/07/23 and this will be his dose moving forward.
-Patient mentions that there was also consideration for increasing the dose of ambrisentan as well, but for now we will continue ambrisentan 5 mg daily.
-Echo repeated this admission showed an improved PA pressure
-EF down to 40-45% by echo 11/05/23. GDMT is limited by hypotension.
-Patient transitioned to Lasix 80 mg PO daily per nephrology. Elevation in creatinine more likely reflects myeloma than related to diuretic.
-Patient has follow up with nephrology, pulmonology and cardiology. Will write appointments down for patient and . Their daughter, Bridget, is also helping to coordinate care.
-Pulmonary nodule once again seen noted. He unfortunately has not been able to be seen in the pulmonary office given recurrent admissions. He understands the importance.
-Patient follow locally with Dr. Lewis for oncology. He also follows with Dr. Simon Solo at [facility] and they were considering 1 of 4 treatments. They will need to await patient getting over infection and then cardiology can
help assess from a cardiac point of view.
-Patient can be discharged from a cardiac standpoint pending what patient and family decide.
Progress Note - Mix Crusher Operator
Subjective
Date of Service: November 06, 2023
He says he is overwhelmed
Objective
Labs:
11/06/23 08:39
11/06/23 08:39
Labs
Hgb 7.8 g/dL (13.0-18.0) L 11/06/23 08:39
Hct 23.2 % (39.0-52.0) L 11/06/23 08:39
Plt Count 120 10^3/uL (130-400) L 11/06/23 08:39
Sodium 130 mmol/L (135-145) L 11/06/23 08:39
Potassium 3.5 mmol/L (3.5-5.1) 11/06/23 08:39
BUN 42 mg/dl (9-20) H 11/06/23 08:39
Creatinine 2.3 mg/dL (0.7-1.3) H 11/06/23 08:39
Glucose 148 mg/dl (70-99) H 11/06/23 08:39
Troponins
11/03/23 11/03/23
12:55 13:00
Troponin I < 0.012 Cancelled
Vital Signs and I&O:
Vital Signs
Temp Pulse Resp BP Pulse Ox
99.0 F 106 18 115/57 95
11/06/23 08:36 11/06/23 08:36 11/06/23 08:36 11/06/23 08:36 11/06/23 08:36
Vital Signs
Temp Pulse Resp BP Pulse Ox
99.0 F 106 18 115/57 95
11/06/23 08:36 11/06/23 08:36 11/06/23 08:36 11/06/23 08:36 11/06/23 08:36
Intake & Output
11/04/23 11/05/23 11/06/23 11/07/23
06:59 06:59 06:59 06:59
Intake Total 240 / 240 540 / 540
Balance 240 / 240 540 / 540
Physical Exam
Physical Exam
General: AAO x3
Heart: SR on tele
Lungs: No audible wheeze
Extremities: No edema B/L
Neuro: Grossly nonfocal
--- NOTE | 2023-11-06 12:19 | W.PN.ID1 ---
Date of Service
Date of Service: November 06, 2023
Today's Communication
can dc home. see below abx recs
Assessment / Plan
#anaerobic GP bacilli bacteremia (1 of 2 sets) -?contaminant
#Pseudomonas bacteremia
- probable source from recent falls sustaining several bleeding abrasions/wounds
-Repeat blood cultures negative to date
- Transition cefepime to Levofloxacin 750 mg po q48 through 11/11 and metronidazole 500mg po tid through 11/11 . QTc 506
# Possible LLL Pneumonia
- pt without respiratory symptoms
- procalcitonin can be falsely elevated in setting of ANAI.
- Discontinue doxycycline . Abx as above.
# ANAI on CKD, improving
# Refractory multiple myeloma (recent Tecvayli dsicontinued)
- no need to resume prophylactic Bactrim.
- Continue prophylactic acyclovir 400mg po bid.
#Additional Past Medical History:
Refractory Multiple myeloma
DM type 2
Hypertension
Congestive heart failure preserved EF
Pulmonary hypertension
Nephrolithiasis
Pulmonary nodules
Diverticulitis
Fatty liver
hx Brewer 9 prostate cancer s/p prostatectomy/XRT (2020)
Chief Complaint
-: Bacteremia
Vital Signs / Physical Exam
Vital Signs
Vital Signs
Temp Pulse Resp BP Pulse Ox
99.0 F 106 18 115/57 95
11/06/23 08:36 11/06/23 08:36 11/06/23 08:36 11/06/23 08:36 11/06/23 08:36
Physical Exam
Constitutional: No Acute Distress
Pulmonary: Clear
Objective Data
Lab Data
Lab Results
11/06/23 08:39
11/06/23 08:39
Estimated Creat Clear 30 ml/min 11/06/23 08:39
Total Bilirubin 0.6 mg/dl (0.2-1.3) 11/03/23 12:55
AST 23 U/L (17-59) 11/03/23 12:55
ALT 20 U/L (0-50) 11/03/23 12:55
Alkaline Phosphatase 72 U/L (38-126) 11/03/23 12:55
Most recent labs reviewed.
Micro Results:
11/03/23 13:46 Blood Culture - Preliminary
Blood/Venous Positive culture in progress
Gram Stain - Preliminary
11/03/23 13:46 Blood Culture - Preliminary
Blood/Venous Pseudomonas aeruginosa
Gram Stain - Preliminary
11/04/23 13:48 Blood Culture - Preliminary
Blood/Venous No Growth in 24 hours- Final report to follow
11/04/23 13:13 Blood Culture - Preliminary
Blood/Venous No Growth in 24 hours- Final report to follow
11/03/23 22:35 Legionella Urinary Antigen - Final
Urine Negative for Legionella pneumophila Serogroup 1 antigen.
A negative result does not rule out the possiblity of
Legionella infection due to other serogroups or species of
Legionella. Clinical correlation is recommended.
11/03/[address]: Moderate left lower lobe consolidation. This may represent atelectasis or pneumonia. This is more suggestive of pneumonia. New. Numerous bilateral various sized rounded pulmonary nodules consistent with malignancy until proven
otherwise. Stable
Care Review
Plan reviewed with: Physician (dr. crum)
[2023-11-06 12:24] LABS: Glucose - Point of Care 141 mg/dl (70-99)
--- NOTE | 2023-11-06 12:46 | CON.ONC ---
Impression
Impression
IgG kappa myeloma, progressive despite recent teclistamab
pseudomonas bacteremia
acute on chronic diastolic CHF, pulm HTN with chronic RV dysfunction
anemia from myeloma, chemo, CKD
Acute on chronic kidney disease
Hyperuricemia, s/p elitek on 11/02/23
Hypercalcemia, treated w/ Xgeva 10/31
Plan
Plan
Mgmt of infection per ID and CHF per cardiology
Ideally will initiate next line of therapy for myeloma in the next week or so, due to aggressive nature of his disease
Will follow-up with him as outpatient if he's discharged soon on oral abx.
Patient History
History of Present Illness
Dasia is a patient of mine, with multiple myeloma, recently on teclistamab and recently found to have significant disease progression with rising total protein, M-spike, IgG and free kappa. He was given rasburicase on 11/01 for uric acid of 16. He was
admitted via ER after trip and fall on Sunday morning, with resulting rib pain. He was admitted for possible pneumonia, and ultimately found to have pseudomonas bacteremia, for which he's been on cefepime. He was found to be in decompensated heart
failure and was diuresed. His acute on chronic CKD has improved slightly since admission.
His breathing is feeling better. He remains weak.
Past-Medical/Surgical History
Past Medical History
Past Medical History: Reports Other
Additional Past Medical History:
hypertension, diverticulosis, enlarged prostate, nephrolithiasis, history of prostate cancer, arthritis, multiple myeloma, pulm htn, chronic heart failure with preserved ejection fraction diabetes
Past Surgical History: Prostatectomy, cataract surgery
Social History
Tobacco: Former Smoker (Quit 40 years ago)
Alcohol: None
Drug: None
Personal:
Living: With Family
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
Family History
Family History: CAD (Father) and Other (Mother likely had myelodysplastic syndrome)
Patient Medication
�Medication �Instructions �Recorded �Confirmed �Last Taken �Type
aspirin 81 mg tablet,delayed 81 mg PO DAILY Blood clot 03/12/15 11/03/23 11/03/23 History
release prevention/tx ##0
red yeast rice 600 mg tablet 1,200 mg PO DAILY Supplement 11/13/15 11/03/23 09/09/23 History
cholecalciferol (vitamin D3) 25 1,000 units PO DAILY Supplement 08/20/20 11/03/23 09/09/23 History
mcg (1,000 unit) tablet
acyclovir 400 mg tablet 400 mg PO BID Infection 10/22/22 11/03/23 11/03/23 History
coQ10 (ubiquinol) 100 mg capsule 100 mg PO DAILY Supplement 10/22/22 11/03/23 09/09/23 History
cyanocobalamin (vitamin B-12) 1,000 mcg PO DAILY Supplement 10/22/22 11/03/23 09/09/23 History
1,000 mcg tablet
denosumab 120 mg/1.7 mL (70 mg/mL) 120 mg SC [id number] Cancer 10/22/22 11/03/23 Unknown History
subcutaneous solution (Xgeva)
dexamethasone 4 mg tablet 20 mg PO UD Anti-inflammatory 10/22/22 11/03/23 Unknown History
loratadine 10 mg tablet (Claritin) 10 mg PO DAILY PRN allergies 10/22/22 11/03/23 Unknown History
tamsulosin 0.4 mg capsule (Flomax) 0.4 mg PO QPM Urinary issue 10/22/22 11/03/23 09/08/23 History
zolpidem 5 mg tablet (Ambien) 5 mg PO HS PRN insomnia 01/15/23 11/03/23 Unknown History
sildenafil (pulm.hypertension) 20 20 mg PO TID #90 tabs 09/14/23 11/03/23 11/03/23 Rx
mg tablet
furosemide 80 mg tablet (Lasix) 80 mg PO DAILY Fluid 11/04/23 11/03/23 Unknown History
Retention/Swelling
Active Medications
Generic Name Dose Route Start Last Admin
Trade Name Freq PRN Reason Stop Dose Admin
Acyclovir Sodium 400 mg 11/05/23 20:00 11/06/23 08:36
Acyclovir Sodium 200 Mg Capsule PO 11/15/23 19:59 400 mg
BID SOULEYMANE Administration
Albuterol Sulfate 2.5 mg 11/03/23 18:03
Albuterol Nebs 2.5 Mg/3 Ml Ampul INH
R Q4HPRN PRN
shortness of breath/wheezing
Protocol
Aspirin 81 mg 11/04/23 08:00 11/06/23 08:35
Aspirin 81 Mg (Enteric Coated) Tablet PO 12/02/23 07:59 81 mg
DAILY SOULEYMANE Administration
Cefepime HCl 2,000 mg 11/04/23 20:00 11/05/23 20:20
Cefepime Hcl 2,000 Mg/12.5 Ml Vial IV 2,000 mg
Q24H SOULEYMANE Administration
Cholecalciferol 25 mcg 11/05/23 12:14 11/06/23 08:35
Cholecalciferol (Vitamin D3) 25 Mcg Tablet (1,000 Units) PO 12/02/23 07:59 25 mcg
DAILY SOULEYMANE Administration
Cyanocobalamin 1,000 mcg 11/04/23 08:00 11/06/23 08:35
Cyanocobalamin 1,000 Mcg Tablet PO 12/02/23 07:59 1,000 mcg
DAILY SOULEYMANE Administration
Doxycycline Hyclate 100 mg 11/04/23 08:00 11/06/23 08:36
Doxycycline 100 Mg Capsule PO 100 mg
Q12 SOULEYMANE Administration
Furosemide 80 mg 11/06/23 11:00 11/06/23 10:34
Furosemide 80 Mg Tablet PO 12/04/23 10:59 80 mg
DAILY SOULEYMANE Administration
Guaifenesin 600 mg 11/03/23 20:00 11/06/23 08:35
Guaifenesin 600 Mg Extended Release Tablet PO 12/01/23 19:59 Not Given
Q12 SOULEYMANE
Heparin Sodium 5,000 units 11/03/23 20:00 11/06/23 08:43
Heparin 5,000 Units/Ml 1 Ml Vial SC 12/01/23 19:59 5,000 units
Q12 SOULEYMANE Administration
Loratadine 10 mg 11/03/23 18:03
Loratadine 10 Mg Tablet PO 12/01/23 18:02
DAILY PRN
allergies
Metronidazole 500 mg 11/06/23 16:00
Metronidazole 500 Mg Tablet PO 11/13/23 08:01
TID SOULEYMANE
Ambrisentan ( 0 mg 11/04/23 08:00
Letairis) 10 Mg PO 12/02/23 07:59
Tablet - 10mg Po DAILY SOULEYMANE
Daily
Sildenafil Citrate 10 mg 11/05/23 15:37 11/06/23 08:36
Sildenafil 20 Mg Tablet PO 12/01/23 21:59 10 mg
TID SOULEYMANE Administration
Sodium Chloride 0 flush 11/03/23 19:00
Sodium Chloride 0.9% (Flush) Syringe IV 12/01/23 18:59
PER PROTOCOL SOULEYMANE
Sterile Water 10 ml 11/04/23 20:00 11/05/23 20:20
Sterile Water For Injection 10 Ml Vial IV 12/02/23 19:59 10 ml
Q24H SOULEYMANE Administration
Tamsulosin HCl 0.4 mg 11/03/23 18:03 11/05/23 16:56
Tamsulosin 0.4 Mg Capsule PO 12/01/23 18:02 0.4 mg
QPM SOULEYMANE Administration
Zolpidem Tartrate 5 mg 11/03/23 18:03
Zolpidem Tartrate 5 Mg Tablet PO 12/01/23 18:02
HS PRN
insomnia
Review of Systems
-
All Other Systems: Not reviewed unless documented
Physical Exam
-
General: Well Developed, Well Nourished, No Apparent Distress and Comfortable
HEENT: Negative Jaundice
Cardiology: Normal Sinus Rhythm
Pulmonary: Clear
GI: Soft
Musculoskeletal: No Edema
Neurology: Non Focal
Skin: Warm and Dry
Labs
Lab Results
WBC 4.7 10^3/uL (4.8-10.8) L 11/06/23 08:39
RBC 2.39 10^6/uL (4.70-6.10) L 11/06/23 08:39
Hgb 7.8 g/dL (13.0-18.0) L 11/06/23 08:39
Hct 23.2 % (39.0-52.0) L 11/06/23 08:39
MCV 97.1 fL (80.0-94.0) H 11/06/23 08:39
MCH 32.6 pg (27.0-31.0) H 11/06/23 08:39
MCHC 33.6 g/dL (33.0-37.0) 11/06/23 08:39
RDW 18.3 % (11.5-14.5) H 11/06/23 08:39
Plt Count 120 10^3/uL (130-400) L 11/06/23 08:39
MPV 10.7 fL (7.4-10.4) H 11/06/23 08:39
Abs Immat Gran (auto) 0.3 10^3/uL (0-0.05) H 11/04/23 05:20
Absolute Neuts (auto) 3.2 10^3/uL (1.4-6.5) 11/04/23 05:20
Absolute Lymphs (auto) 0.7 10^3/uL (1.2-3.4) L 11/04/23 05:20
Absolute Monos (auto) 0.4 10^3/uL (0.1-0.6) 11/04/23 05:20
Absolute Eos (auto) 0.0 10^3/uL (0-0.7) 11/04/23 05:20
Absolute Basos (auto) 0.0 10^3/uL (0-0.2) 11/04/23 05:20
Immature Gran % 5.8 % (0-0.5) H 11/04/23 05:20
Neutrophils % 70.5 % (42.2-75.2) 11/04/23 05:20
Lymphocytes % 14.4 % (20.5-51.1) L 11/04/23 05:20
Monocytes % 8.7 % (1.7-9.3) 11/04/23 05:20
Eosinophils % 0.2 % (0-6) 11/04/23 05:20
Basophils % 0.4 % (0-2) 11/04/23 05:20
Creatinine 2.3 mg/dL (0.7-1.3) H 11/06/23 08:39
Vital Signs
Vital Signs
Temp Pulse Resp BP Pulse Ox
99.0 F 106 18 115/57 95
11/06/23 08:36 11/06/23 08:36 11/06/23 08:36 11/06/23 08:36 11/06/23 08:36
[2023-11-06 13:22] LABS: Total Protein 11.6 g/dl (6.3-8.2)
--- NOTE | 2023-11-06 13:42 | W.DCSUMMARY ---
Addendum entered and electronically signed by Petey Boateng MD 11/07/23 09:25:
Correction, as EF now 40-45%, pt had acute HFrEF
Original Note:
Discharge Summary
Discharge Data
Date of Admission: 11/03/23
Date of Discharge: 11/06/23
-
Pending Results: No
Hospital Course
Primary diagnoses:
Sepsis due to left lower lobe pneumonia
Pseudomonas bacteremia, like due to wounds/abrasions from falls
Acute on chronic hyponatremia
Acute kidney injury on chronic kidney disease stage 3b
Secondary diagnoses:
Chronic heart failure with preserved ejection fraction
Refractory Multiple myeloma
Obesity due to excess calories
Pulmonary hypertension (WHO Group 5)
Pancytopenia
Type 2 diabetes mellitus
h/o prostate cancer s/p prostatectomy and radiation
h/o Pulmonary nodules
Vitamin B12 deficiency
Chronic right bundle branch
Diverticulosis
Sciatica
Insomnia
Hepatic Steatosis
Consultants:
Cardiology
Nephrology
Infectious disease
Hematology/oncology
Imaging:
Renal U/S:
1. MODERATE CHRONIC BILATERAL RENAL DISEASE.
2. No sonographic evidence for hydronephrosis or nephrolithiasis.
3. Small volume of ascites.
4. Severe diffuse hepatic steatosis.
CT chest: Small left pleural effusion. New. Moderate left lower lobe consolidation. This may represent atelectasis or pneumonia. This is more suggestive of pneumonia. New. Numerous bilateral various sized rounded pulmonary nodules consistent with
malignancy until proven otherwise. Stable. Stable hypodense hepatic lesion possibly hemangioma. Resect disease not excluded. Probable splenomegaly. Spleen is not completely imaged. Stable. Mild ascites about the upper abdomen. Progressed.
Echo: Normal left ventricular chamber size. Normal left ventricular wall thickness.
Mildly reduced left ventricular systolic function. Global hypokinesis. Abnormal
(paradoxical) septal motion consistent with left bundle branch block. Flattened
septum in systole consistent with RV pressure overload. Left ventricular
ejection fraction is 40-45 %.
Mildly dilated right ventricle with normal right ventricular function.
Thickened mitral valve leaflets. Mitral valve opens normally. Trace mitral
regurgitation.
Trileaflet aortic valve. Thickened aortic valve with restricted leaflet motion.
Peak/mean gradients are 23/15 mmHg. Using an LVOT of 2.0 cm the calculated
valve area is 1.2 cm2. Mild aortic stenosis.
Structurally normal tricuspid valve. Tricuspid valve opens normally. Estimated
pulmonary artery pressure of 30-35 mmHg. Mild tricuspid regurgitation.
Compared to prior study 08/30/2023 ejection fraction in the setting of sinus
tachycardia is now 40 to 45% previously 55 to 60%. Pulmonary artery pressure
has improved from prior 55 mmHg to now 30 to 35 mmHg
Sepsis due to left lower lobe pneumonia, Pseudomonas bacteremia: Imaging above. Patient had tachycardia and tachypnea with source of infection being left lower lobe pneumonia on admission and therefore met sepsis criteria. COVID and flu testing
were negative. Patient was placed on Zosyn and doxycycline. 1 of 2 blood cultures on admission grew Pseudomonas. The patient's Pseudomonas bacteremia was likely like due to wounds/abrasions from falls. Patient improved clinically. He was seen in
consultation by infectious disease. At discharge she will be on Flagyl and Levaquin through November 12, 2023.
Acute on chronic hyponatremia: Patient's sodium on admission was 133 and was 130 at the time of discharge. Serum Osm was normal at 289, UOsm 258, Eder 9, TSH/cortisol normal. Patient was seen in consultation by nephrology and they recommended
continuing the patient's home Lasix dosing.
Acute kidney injury on chronic kidney disease stage 3b: The patient's creatinine admission was 2.0. It peaked at 2.7 and was 2.3 at the time of discharge. Patient's Lasix was continued. He was seen by nephrology. His acute kidney injury was
likely due to acute infection.
Discharge Plan
-
Patient Disposition: Home (Routine Discharge)
Discharge Diagnosis/Procedures: Sepsis due to left lower lobe pneumonia, Pseudomonas bacteremia, acute on chronic hyponatremia, acute kidney injury on chronic kidney disease stage IIIb
Condition: Good
Diet: 2 Gram Sodium and Diabetic, Carb Controlled
Activity: As tolerated
Driving Restrictions: As prior to admission
Blood Work: BMP and CBC in 1 week, prescription from PCP
Specialty Instructions: Weigh Daily- Call MD for wt gain/loss 3 lbs overnight/5 lbs in 1 week
Referrals:
Eloy Hunter MD [Family Provider] - in less than 1 week
Additional Discharge Medication Instructions: -Take sildenafil 20 mg three times a day starting 11/07/23 AM.
-Continue taking ambrisentan (Letairis) 5mg once a day
Prescriptions:
New
metronidazole 500 mg Tablet
500 mg PO TID Qty: 21 0RF
levofloxacin 750 mg tablet
750 mg PO Q48H Qty: 4 0RF
Continued
aspirin 81 MG tablet,delayed release (DR/EC)
81 mg PO DAILY Qty: 0
red yeast rice 600 MG tablet
1,200 mg PO DAILY
cholecalciferol (vitamin D3) 1,000 UNITS tablet
1,000 units PO DAILY
cyanocobalamin (vitamin B-12) 1,000 mcg Tablet
1,000 mcg PO DAILY
acyclovir 400 mg Tablet
400 mg PO BID
tamsulosin [Flomax] 0.4 mg Capsule
0.4 mg PO QPM
dexamethasone 4 mg tablet
20 mg PO UD
Patient Comments:
10/22/22- patients take with he gets valcade infuison
Rx Instructions:
Take once weekly on before treatment for 3 weeks, 1 week off
loratadine [Claritin] 10 mg Tablet
10 mg PO DAILY PRN (Reason: allergies)
Xgeva 120 mg/1.7 mL (70 mg/mL) Solution
120 mg SC [id number]
coQ10 (ubiquinol) 100 mg Capsule
100 mg PO DAILY
zolpidem [Ambien] 5 mg Tablet
5 mg PO HS PRN (Reason: insomnia)
Patient Comments:
08/30/2023: last filled 04/23/23, 30 tabs for 30 days from [id number]
sildenafil (pulm.hypertension) 20 mg Tablet
20 mg PO TID Qty: 90 0RF
furosemide [Lasix] 80 mg tablet
80 mg PO DAILY
Discharge Orders:
Discharge Patient (As Directed); Ordered 11/06/23
Ordered By: Petey Boateng
Discharge Date and Time
Print Language: VIET[place]ESE
--- NOTE | 2023-11-06 14:46 | CM ---
Patient for d/c home today.
Spouse will transport.
patient requested outpatient PT, script obtained from MD.
IMM completed.
Plan: d/c home, no needs.
[2023-11-06 15:00] VITALS: BP 127/71
[2023-11-06] MEDS: FLAGYL 500 MG PO (15:41)
--- NOTE | 2023-11-07 08:43 | PN.CDI ---
CDI
- -
CDI:
Physician Documentation Request
Admit Date: 11/03/23 17:05
Dear Doctor Tasneem,
Please review the following and provide your response in the progress notes.
Clinical Indicators:
Pt admitted with Sepsis 08/10 PNA /Acute on Chronic Diastolic CHF
ECHO this admit 11/04 , ' Flattened septum in systole consistent with RV pressure overload. Left ventricular ejection fraction is 40-45 %....Compared to prior study 08/30/2023 ejection fraction in the setting of sinus tachycardia is now 40 to 45%
previously 55 to 60%....'
Please provide further specificity regarding the most likely type and acuity of CHF you are evaluating, treating or monitoring.
Acute Systolic CHF
Acute on Chronic Diastolic CHF ( no change in documentation)
Other
Use of terms such as suspected, likely, concern for, or probable (associated with a specific diagnosis that is being evaluated, monitored, or treated as if it exists) are acceptable and can be coded in the inpatient setting, when documented at the
time of discharge.
Thank you,
Eliza Pan
CDI Specialist
[place] [employer]
Please use your independent medical judgment in providing your response.
== END 2023-11-06 17:06 | disposition home health service (06) | DRG 871 ==
LOC: 4 WEST ACU 17:05
PROVIDERS: Physician Assistant; ADMITTING PHYSICIAN Hospitalist; ATTENDING PHYSICIAN Internal Medicine; CONSULT PHYSICIAN Internal Medicine Cardiovascular Disease; CONSULT PHYSICIAN Internal Medicine Hematology & Oncology; CONSULT PHYSICIAN Internal Medicine Infectious Disease; CONSULT PHYSICIAN Specialist; EMERGENCY PHYSICIAN Emergency Medicine; FAMILY PHYSICIAN Family Medicine
DX: A41.52 Sepsis due to Pseudomonas (principal); I50.21 Acute systolic (congestive) heart failure; J18.9 Pneumonia, unspecified organism; I13.0 Hypertensive heart and chronic kidney disease with heart failure and stage 1 through stage 4 chronic kidney disease, or unspecified chronic kidney disease; C90.00 Multiple myeloma not having achieved remission; E87.1 Hypo-osmolality and hyponatremia; D61.818 Other pancytopenia; E87.20 Acidosis, unspecified; N17.9 Acute kidney failure, unspecified; N18.32 Chronic kidney disease, stage 3b; E66.09 Other obesity due to excess calories; I27.29 Other secondary pulmonary hypertension; E11.22 Type 2 diabetes mellitus with diabetic chronic kidney disease; Z68.30 Body mass index [BMI] 30.0-30.9, adult; Z79.82 Long term (current) use of aspirin
CPT/HCPCS: 36415; 71101; 71250; 76770; 80048; 80053; 81003; 81015; 81099; 82533; 82570; 82784; 82962; 83521; 83615; 83880; 83930; 83935; 84145; 84155; 84156; 84165; 84300; 84443; 84484; 84550; 85025; 85027; 86334; 87040; 87149; 87186; 87205; 87449; 87811; 93005; 93306; 96365; 97161; 99285

== ENCOUNTER 2023-11-21 18:15 | Inpatient (IN) | payer MEDICARE, OTHER, SELFPAY ==
[2023-11-21 14:35] VITALS: BP 101/54
[2023-11-21 16:01] LABS: % Basophils 0.5 % (0-2); % Eosinophils 1.6 % (0-6); % Immature Granulocytes 5.8 % (0-0.5); % Lymphocytes 9.5 % (20.5-51.1); % Monocytes 8.2 % (1.7-9.3); % Neutrophils 74.4 % (42.2-75.2); Absolute Eosinophils 0.1 10^3/uL (0-0.7); Absolute Immature Granulocytes 0.2 10^3/uL (0-0.05); Absolute Lymphocytes 0.4 10^3/uL (1.2-3.4); Absolute Monocytes 0.3 10^3/uL (0.1-0.6); Absolute Neutrophils 2.8 10^3/uL (1.4-6.5); Hemoglobin 8.2 g/dL (13.0-18.0); Mean Corp Hgb Conc. 32.8 g/dL (33.0-37.0); Mean Corpuscular Hgb 32.4 pg (27.0-31.0); Mean Corpuscular Volume 98.8 fL (80.0-94.0); Mean Platelet Volume 11.1 fL (7.4-10.4); Nucleated Red Blood Cells % 0.8 % (-); Platelet Count 117 10^3/uL (130-400); Red Blood Cell Count 2.53 10^6/uL (4.70-6.10); Red Cell Dist. Width 20.3 % (11.5-14.5); White Blood Cell Count 3.8 10^3/uL (4.8-10.8)
--- NOTE | 2023-11-21 16:03 | ED.GENMED ---
History of Present Illness
<Nessa Valladares NP - Last Filed: 11/21/23 22:06>
General
Chief Complaint: Weakness
Source: patient, spouse and family
Exam Limitations: none
Time Seen by Provider: 11/21/23 15:14
Nursing documentation reviewed up to this point in time: agreed with
Travel History
Have you had any contact with someone who has COVID-19?: No
Do you have any symptoms of coronavirus? Fever > 100 degrees, chills, cough, shortness of breath, sore throat, loss of taste or smell, muscle aches, or headache?: No
History of Present Illness
History of Present Illness:
Patient to ED for increased fatigue/weakness, hypotension, confusion. He was discharged from [facility] on Sunday after 10day admission for multiple myeloma treatment. Family states she has been sleeping since . Today he was seen by
Raul[facility] for scheduled cardiololgy appt. SHe referred him to ED for hypotension and confusion. Family denies fever/chillls. He denies any pain. Prior to his admission to [facility] he had a fall. On admission, CT found a perispleenic hematoma.
Family states he had a repeat CT on Sunday prior to his discharge. Hematoma is resolving however he was found to have severe sigmoid diverticulitis with suspected mural abscess. Placed on Augmentin 875mb bid and discharged home. Recommendation
was for repeat CT in 10 days. He denies any abdominal pain, n/v/d. No vomiting. Family unsure if his current presentation is due to his recent cancer treatment or if he is septic.
Past History
<Nessa Valladares NP - Last Filed: 11/21/23 22:06>
Past History
ED Past Medical History: Cancer, HTN and Other (renal stones, diveticulitis, hx of urosepsis)
ED Past Surgical History: None
Social History
Tobacco: Non-smoker
Personal:
Living: with family
Employment: Employed
Review of Systems
<Nessa Valladares NP - Last Filed: 11/21/23 22:06>
Review of Systems
Allergies reviewed?: Yes
All Other Systems: ROS reviewed and negative except as documented in HPI and ROS
Constitutional: Reports fatigue
EENT: Reports no symptoms
Respiratory: Reports other (Pulse ox 88-89% RA. Placed on 3L NC, maintaining at 94%)
Cardiac: Reports no symptoms
ABD/GI: Reports no symptoms
: Reports no symptoms
Musculoskeletal: Reports no symptoms
Skin: Reports no symptoms
Neurological: Reports weakness
Psychiatric: Reports no symptoms
Phy Exam
<Nessa Valladares NP - Last Filed: 11/21/23 22:06>
General Physical Exam
General Presentation: mild distress
General age: appears stated age
General Skin: warm and dry
General Habitus: normal
General Mental: alert
Cardiovascular Exam
Cardiovascular Exam: regular rate/rhythm
Pulmonary Exam
Pulmonary Exam: chest non tender
Oxygen Status: oxygen 3 liters via NC
Breath Sounds: Crackles: left lower and right lower
Gastrointestinal Exam
Gastrointestinal Exam: normal bowel sounds, non tender, soft and no organomegaly
Musculoskeletal Exam
Musculoskeletal Exam: full ROM and edema
Skin Exam
Skin Exam: normal color, warm/dry and no rash
Psychiatric Exam
Psychiatric Exam: normal mood/affect
Course
<Nessa Valladares NP - Last Filed: 11/21/23 22:06>
Orders/Labs/Results
Orders:
Orders
11/21/23 Dinner
Regular
At Your Request: Full Participation
11/21/23 15:28
0.9% Sodium Chloride 1000 ml [Nss] 1,000 ml IV BOLUS
CR Chest - 2 Views Urgent
Comment:
Reason For Exam: weakness
11/21/23 15:30
Complete Blood Count/With Diff Urgent
Comprehensive Metabolic Panel Urgent
Lactic Acid Urgent
NT-proBNP Urgent
Comment: ADD ON
Prothrombin Time Urgent
Troponin I Urgent
Blood Culture Q30M
EMELY Source: Blood/Venous
Specimen Description:
11/21/23 15:36
COVID-19 Antigen Urgent
Source: Nasal Swab
Influenza A+B Rapid Molecular Urgent
EMELY Source: Nasal Swab
Specimen Description:
11/21/23 15:37
Blood Culture Q30M
EMELY Source: Blood/Venous
Specimen Description:
11/21/23 16:19
Add On- LAB Urgent
Tests Added?: ProBNP
11/21/23 16:28
ABG [Arterial Blood Gas] Urgent
%Oxygen/Room Air: 3L NC
11/21/23 16:59
Urinalysis Reflex To Culture Urgent
Date Specimen was Collected: 11/21/23
Time Specimen was Collected: 16:51
Urine Microscopic Reflex Cult Urgent
Urine Culture Urgent
EMELY Source: U
Specimen Description:
Date Specimen was Collected: 11/21/23
Time Specimen was Collected: 16:51
11/21/23 17:08
Furosemide [Lasix] 20 mg IV NOW STA
Peripheral Venous Lwr Ext Bilat US [US Periph Venous LOWER Ext David] Urgent
Comment:
Reason For Exam: swelling
11/21/23 18:00
Admit/Transfer Patient As Directed
Co-Sign Provider:
Level of Care: Inpatient admission
Assign to:: IMU- Intermediate Care
Physician / Group: mery
Diagnosis: SIRS/ cytokine release syndrome
Reason for Hospitalization: SIRS/ cytokine release syndrome
Expected length of stay greater than two midnights?: Yes
ELOS- Estimated Length of Stay in days: 2
I certify the patient meets the requirements for IP care: Yes
Piperacillin/Tazo 4.5 Gram [Zosyn] 4.5 gram in 100 ml IV Q6H
11/21/23 18:01
Code Status As Directed
Resuscitation Status: Full Code
11/21/23 18:03
Chest/Abd/Pelvis w Contrast CT [CT Chest/abd/pel W Iv Cont] Urgent
Comment:
Reason For Exam: sepsis unclear source, cavitary nod, diverticuliti
11/21/23 19:53
Activity As Directed
Activity Level: As Tolerated
Vital Signs As Directed
Frequency: Per unit guidelines
DX Deep Vein Thrombosis Video Routine
11/21/23 20:00
Heparin 5,000 units SC Q12
VANCOMYCIN Pharmacy to Dose [VANCOCIN Pharmacy to Dose] 1 each Pharmacy To Prepare [Call Pharmacy To Prepare] 0 ml IV PER PROTOCOL
11/22/23 06:00
Complete Blood Count/With Diff IN AM
Comprehensive Metabolic Panel IN AM
Abnormal Lab Results
11/21/23 11/21/23 11/21/23
15:30 16:28 16:59
WBC 3.8 L 10^3/uL
(4.8-10.8)
RBC 2.53 L 10^6/uL
(4.70-6.10)
Hgb 8.2 L g/dL
(13.0-18.0)
Hct 25.0 L %
(39.0-52.0)
MCV 98.8 H fL
(80.0-94.0)
MCH 32.4 H pg
(27.0-31.0)
MCHC 32.8 L g/dL
(33.0-37.0)
RDW 20.3 H %
(11.5-14.5)
Plt Count 117 L 10^3/uL
(130-400)
MPV 11.1 H fL
(7.4-10.4)
Abs Immat Gran (auto) 0.2 H 10^3/uL
(0-0.05)
Absolute Lymphs (auto) 0.4 L 10^3/uL
(1.2-3.4)
Immature Gran % 5.8 H %
(0-0.5)
Lymphocytes % 9.5 L %
(20.5-51.1)
PT 19.4 H Sec
(11.4-14.6)
pH 7.49 H
(7.35-7.45)
pCO2 29 L mmHg
(35-48)
pO2 78 L mmHg
(83-108)
Sodium 134 L mmol/L
(135-145)
Chloride 108 H mmol/L
(98-107)
BUN 38 H mg/dl
(9-20)
Creatinine 1.5 H mg/dL
(0.7-1.3)
Glucose 140 H mg/dl
(70-99)
Calcium 7.6 L mg/dl
(8.4-10.2)
Total Protein 9.1 H g/dl
(6.3-8.2)
Albumin 2.8 L g/dl
(3.5-5.0)
Ur Occult Blood Reflex 2+ A
(Negative)
Urine Bacteria (Reflex) Many A
(Negative)
Urine Albumin (Reflex) 1+ A
(Neg - Trace)
11/21/23 15:30
11/21/23 15:30
Vital Signs
Initial and Last Documented VS:
Initial Vital Signs
Temp Pulse Resp BP Pulse Ox
98.7 F 105 16 101/54 92
11/21/23 14:35 11/21/23 14:35 11/21/23 14:35 11/21/23 14:35 11/21/23 14:35
Last Documented Vital Signs
Temp Pulse Resp BP Pulse Ox
98.7 F 108 25 100/61 95
11/21/23 14:35 11/21/23 21:30 11/21/23 21:30 11/21/23 20:02 11/21/23 21:40
<Gautam Tucker MD - Last Filed: 11/21/23 19:00>
Orders/Labs/Results
Orders:
Orders
11/21/23 Dinner
Regular
At Your Request: Full Participation
11/21/23 15:28
0.9% Sodium Chloride 1000 ml [Nss] 1,000 ml IV BOLUS
CR Chest - 2 Views Urgent
Comment:
Reason For Exam: weakness
11/21/23 15:30
Complete Blood Count/With Diff Urgent
Comprehensive Metabolic Panel Urgent
Lactic Acid Urgent
NT-proBNP Urgent
Comment: ADD ON
Prothrombin Time Urgent
Troponin I Urgent
Blood Culture Q30M
EMELY Source: Blood/Venous
Specimen Description:
11/21/23 15:36
COVID-19 Antigen Urgent
Source: Nasal Swab
Influenza A+B Rapid Molecular Urgent
EMELY Source: Nasal Swab
Specimen Description:
11/21/23 15:37
Blood Culture Q30M
EMELY Source: Blood/Venous
Specimen Description:
11/21/23 16:19
Add On- LAB Urgent
Tests Added?: ProBNP
11/21/23 16:28
ABG [Arterial Blood Gas] Urgent
%Oxygen/Room Air: 3L NC
11/21/23 16:59
Urinalysis Reflex To Culture Urgent
Date Specimen was Collected: 11/21/23
Time Specimen was Collected: 16:51
Urine Microscopic Reflex Cult Urgent
Urine Culture Urgent
EMELY Source: U
Specimen Description:
Date Specimen was Collected: 11/21/23
Time Specimen was Collected: 16:51
11/21/23 17:08
Furosemide [Lasix] 20 mg IV NOW STA
Peripheral Venous Lwr Ext Bilat US [US Periph Venous LOWER Ext David] Urgent
Comment:
Reason For Exam: swelling
11/21/23 18:00
Admit/Transfer Patient As Directed
Co-Sign Provider:
Level of Care: Inpatient admission
Assign to:: IMU- Intermediate Care
Physician / Group: mery
Diagnosis: SIRS/ cytokine release syndrome
Reason for Hospitalization: SIRS/ cytokine release syndrome
Expected length of stay greater than two midnights?: Yes
ELOS- Estimated Length of Stay in days: 2
I certify the patient meets the requirements for IP care: Yes
Piperacillin/Tazo 4.5 Gram [Zosyn] 4.5 gram in 100 ml IV Q6H
11/21/23 18:01
Code Status As Directed
Resuscitation Status: Full Code
11/21/23 18:03
Chest/Abd/Pelvis w Contrast CT [CT Chest/abd/pel W Iv Cont] Urgent
Comment:
Reason For Exam: sepsis unclear source, cavitary nod, diverticuliti
11/21/23 19:53
Activity As Directed
Activity Level: As Tolerated
Vital Signs As Directed
Frequency: Per unit guidelines
DX Deep Vein Thrombosis Video Routine
11/21/23 20:00
Heparin 5,000 units SC Q12
VANCOMYCIN Pharmacy to Dose [VANCOCIN Pharmacy to Dose] 1 each Pharmacy To Prepare [Call Pharmacy To Prepare] 0 ml IV PER PROTOCOL
11/22/23 06:00
Complete Blood Count/With Diff IN AM
Comprehensive Metabolic Panel IN AM
Abnormal Lab Results
11/21/23 11/21/23 11/21/23
15:30 16:28 16:59
WBC 3.8 L 10^3/uL
(4.8-10.8)
RBC 2.53 L 10^6/uL
(4.70-6.10)
Hgb 8.2 L g/dL
(13.0-18.0)
Hct 25.0 L %
(39.0-52.0)
MCV 98.8 H fL
(80.0-94.0)
MCH 32.4 H pg
(27.0-31.0)
MCHC 32.8 L g/dL
(33.0-37.0)
RDW 20.3 H %
(11.5-14.5)
Plt Count 117 L 10^3/uL
(130-400)
MPV 11.1 H fL
(7.4-10.4)
Abs Immat Gran (auto) 0.2 H 10^3/uL
(0-0.05)
Absolute Lymphs (auto) 0.4 L 10^3/uL
(1.2-3.4)
Immature Gran % 5.8 H %
(0-0.5)
Lymphocytes % 9.5 L %
(20.5-51.1)
PT 19.4 H Sec
(11.4-14.6)
pH 7.49 H
(7.35-7.45)
pCO2 29 L mmHg
(35-48)
pO2 78 L mmHg
(83-108)
Sodium 134 L mmol/L
(135-145)
Chloride 108 H mmol/L
(98-107)
BUN 38 H mg/dl
(9-20)
Creatinine 1.5 H mg/dL
(0.7-1.3)
Glucose 140 H mg/dl
(70-99)
Calcium 7.6 L mg/dl
(8.4-10.2)
Total Protein 9.1 H g/dl
(6.3-8.2)
Albumin 2.8 L g/dl
(3.5-5.0)
Ur Occult Blood Reflex 2+ A
(Negative)
Urine Bacteria (Reflex) Many A
(Negative)
Urine Albumin (Reflex) 1+ A
(Neg - Trace)
11/21/23 15:30
11/21/23 15:30
Vital Signs
Initial and Last Documented VS:
Initial Vital Signs
Temp Pulse Resp BP Pulse Ox
98.7 F 105 16 101/54 92
11/21/23 14:35 11/21/23 14:35 11/21/23 14:35 11/21/23 14:35 11/21/23 14:35
Last Documented Vital Signs
Temp Pulse Resp BP Pulse Ox
98.7 F 108 25 100/61 95
11/21/23 14:35 11/21/23 21:30 11/21/23 21:30 11/21/23 20:02 11/21/23 21:40
<Nessa Valladares NP - Last Filed: 11/21/23 22:06>
*Critical Care Note
Total Time (30-74mins, 75-104mins- exclusive of procedures): Not Applicable
ED Attending Note
<Nessa Valladares NP - Last Filed: 11/21/23 22:06>
-
Portions of this chart may have been created with voice recognition software.� Occasional wrong word or��sound alike� substitutions may have occurred due to the inherent limitations of voice recognition software.
<Gautam Tucker MD - Last Filed: 11/21/23 19:00>
ED Attending Note
Patient seen and examined by attending physician: Yes
ED Attending Note:
Patient with history of multiple myeloma, discharged from [facility] 2 days ago, after receiving immunotherapy as well as discharged home on Augmentin secondary to diverticulitis seen on CT scan, presents to ED secondary to
worsening generalized weakness along with confusion. Denies nausea, vomiting, or diarrhea. Denies headache. Denies dizziness. Denies chest pain. Denies coughing. Patient does have leg swelling, but states that it has improved after receiving
IV diuresis during recent hospitalization.
Physical Exam
General: mild distress, not acutely ill. afebrile
Head: nc/at. eomi
Neck: supple. no meningeal signs.
Heart: s1/s2 regular rate and rhythm, no murmur. equal radial pulses.
Lungs: no acute respiratory distress. crackles bilaterally
Abdomen: normal bowel sounds. not tender.
Neuro: alert and oriented. no focal neurological deficits
Skin: no rash
Psychiatric: well kept. interactive and cooperative
Extremities: LE b/l edema. no calf tenderness.
Patient's presenting symptoms, i.e. mental status change, likely multifactorial, including recent treatment via immunotherapy along with ongoing diverticulitis. In light of patient's immunocompromise state, along with mental status change, patient
will be admitted for further evaluation treatment, including IV antibiotics as well as IV diuresis.
Blood culture pending.
Discharge Plan
Departure
Patient Disposition: Admit
Date of Disposition: 11/21/23
Time of Disposition: 17:09
Presentation/result/management discussed w/ accepting MD/DO: Hospitalist
Patient with high blood pressure during this ER visit?: No
Condition: Fair
Covid-19: Not Applicable
Discharge Problem:
Fluid overload, Weakness, Hypoxemia
Interventions
Interventions:
*Risk Screen - Suicide Last Done: 11/21/23 14:35
*General Assessment Last Done: 11/21/23 14:35
*Neglect/Abuse Screening Last Done: 11/21/23 14:35
ED- Fall Risk Assessment Last Done: 11/21/23 15:23
*ED COVID-19 Vaccine History Last Done: 11/21/23 15:23
*Nursing Disposition Last Done: 11/21/23 19:48
ED- Cardiac Assessment Last Done: 11/21/23 15:23
ED- Neurological Assessment Last Done: 11/21/23 15:23
ED- Pulmonary Assessment Last Done: 11/21/23 15:23
Discharge Date and Time
Discharge Date/Time: 11/21/23 19:48
[2023-11-21 16:04] LABS: Lactic Acid 1.7 mmol/L (0.7-2.0)
[2023-11-21 16:05] VITALS: BP 100/63
[2023-11-21 16:07] LABS: COVID-19 Antigen Negative (Negative)
[2023-11-21 16:14] LABS: ALT (SGPT) 18 U/L (0-50); AST (SGOT) 21 U/L (17-59); Albumin 2.8 g/dl (3.5-5.0); Alkaline Phosphatase 114 U/L (38-126); Blood Urea Nitrogen 38 mg/dl (9-20); Calcium 7.6 mg/dl (8.4-10.2); Carbon Dioxide 22 mmol/L (22-30); Chloride 108 mmol/L (98-107); Glucose 140 mg/dl (70-99); Potassium 3.9 mmol/L (3.5-5.1); Sodium 134 mmol/L (135-145); Total Bilirubin 0.8 mg/dl (0.2-1.3); Total Protein 9.1 g/dl (6.3-8.2); eGFR 48.55
[2023-11-21 16:17] LABS: INR 1.63; PT 19.4 Sec (11.4-14.6)
[2023-11-21 16:26] LABS: Troponin I < 0.012 ng/ml
--- NOTE | 2023-11-21 16:31 | W.PN.CARDCBS ---
Today's Communication / Plan
-
being admitted for sepsis work up
check proBNP, EKG
will follow
Impression / Plan
-
Primary Manager Transport: Dr. Ginger Lal
PCP: Dr. Hunter
Assessment:
-Hypoxia
-Hypotension
-Confusion
-Concern for septic shock
-Admission to [facility], discharged 11/19/2023 after initiation of Talvey therapy for refractory myeloma
-Diverticular abscess, treated with Augmentin
-Concern for septic emboli of lungs by review of records from [place]
-Pulmonary hypertension and chronic RV dysfunction/heart failure with preserved ejection fraction
-Mild aortic stenosis
-Hypertension
-Dyslipidemia on red yeast rice
-CT imaging noting coronary atherosclerosis without history of NV
-Aortic atherosclerosis without aneurysm
-Right bundle branch block
-Type 2 diabetes mellitus
-Fatty liver infiltration
-History of prostate cancer status post prostatectomy
-Active Multiple myeloma
-History of diverticulitis in 2016
-Degenerative joint disease of lumbar spine
-Hyponatremia
Echocardiogram 08/30/2023: Ejection fraction 55 to 60%, D-shaped septum in systole and diastole consistent with RV pressure and volume overload, mild aortic stenosis with mean gradient of 11 mmHg aortic valve area 1.5 cm�, mild TR with PA systolic of
55 mmHg
Echo 11/05/2023: Mildly reduced left ventricular systolic function. Global hypokinesis. Abnormal (paradoxical) septal motion consistent with left bundle branch block. Flattened septum in systole consistent with RV pressure overload. Left ventricular
ejection fraction is 40-45 %. Trace mitral regurgitation. Aortic valve peak/mean gradients are 23/15 mmHg. MARYELLEN 1.2 cm2. Mild aortic stenosis. Estimated pulmonary artery pressure of 30-35 mmHg.
Right heart catheterization 09/13/2023
Hemodynamics (mmHg):
RA (m) : 13
RV (s/d,m) : 77/12, 17
PA (s/d, m) : 77/23, 48
PCWP (m) : 18
Cardiac Output : 5.2 L/min
Cardiac Index : 2.5 L/min/m-2
Systemic vascular resistance: 13.5 Wood units or 1077 [id number](-5)
Pulmonary vascular resistance: 5.8 Wood units or 461 [id number]-yb(-5)
CONCLUSION:
1.� Postcapillary pulmonary hypertension with hemodynamics most consistent with group 2 and group 5 with mean PA pressure of 48 mmHg, pulmonary capillary wedge pressure 18 mmHg and PVR 5.8 Wood units
Plan:
-Patient was seen in office today and was noted to be confused, hypoxic, and hypotensive so sent urgently to ER. He had recent admission to [facility] (discharged Sunday11/19/23) where he was started on Talvey for refractory/resistant myeloma.
-CXR pending
-labs pending
-Check EKG - in SR with PVCs on tele in ER
-BP 100/63. pulse ox 96% on supp O2
-needs work up for sepsis. is critically ill however appears to be somewhat improved from presentation to office.
-has evidence of volume overload with B/L LE edema on exam, however diuresis may be limited at this time due to hypotension. during [facility] admission had LE US negative for DVT and was started on lasix. Check proBNP
-he had a CT scan with diverticular abscess and was on Augmentin
-There was also concern for septic emboli of the lungs
-He underwent TTE 11/13/23 at [facility] with increased pulmonary artery pressures 57mmHg, not felt to be far off from baseline with RV dysfunction which is known, stable mild
-His pulmonary hypertension is felt to be likely secondary to prior immunotherapy (kyprolis), WHO group 1/5 with NYHA class 2 symptoms. most recent RHC as above
-Discussed with patient and family at bedside
Progress Note - Manager Transport
Subjective
Date of Service: November 21, 2023
denies CP. reports breathing ok at present
Objective
Labs:
11/21/23 15:30
11/21/23 15:30
Labs
Hgb 8.2 g/dL (13.0-18.0) L 11/21/23 15:30
Hct 25.0 % (39.0-52.0) L 11/21/23 15:30
Plt Count 117 10^3/uL (130-400) L 11/21/23 15:30
PT 19.4 Sec (11.4-14.6) H 11/21/23 15:30
INR 1.63 11/21/23 15:30
Sodium 134 mmol/L (135-145) L 11/21/23 15:30
Potassium 3.9 mmol/L (3.5-5.1) 11/21/23 15:30
BUN 38 mg/dl (9-20) H 11/21/23 15:30
Creatinine 1.5 mg/dL (0.7-1.3) H 11/21/23 15:30
Glucose 140 mg/dl (70-99) H 11/21/23 15:30
Troponins
11/21/23
15:30
Troponin I < 0.012
Vital Signs and I&O:
Vital Signs
Temp Pulse Resp BP Pulse Ox
98.7 F 102 18 100/63 96
11/21/23 14:35 11/21/23 16:15 11/21/23 16:15 11/21/23 16:05 11/21/23 16:15
Vital Signs
Temp Pulse Resp BP Pulse Ox
98.7 F 102 18 100/63 96
11/21/23 14:35 11/21/23 16:15 11/21/23 16:15 11/21/23 16:05 11/21/23 16:15
Physical Exam
Physical Exam
GEN: No distress, awake, alert, oriented x3. on supp O2. appears lethargic
HEENT: supple, anicteric, mmm, eomi
LUNGS: CTA B/L, no wheezes
CV: Reg, S1/S2, 1/6 syst LSB
ABD: soft, BS+, NT/ND
EXT: No cyanosis, clubbing. 3+ edema of B/L LE
NEURO: Gross non-focal
SKIN: Warm, pink, dry. No rash
[2023-11-21 16:34] LABS: B.E. -0.8 mmol/L; HCO3 22.1 mmol/L (21-28); O2 Saturation % 97.5 % (94-98); PCO2 29 mmHg (35-48); PO2 78 mmHg (83-108); pH 7.49 (7.35-7.45)
[2023-11-21 16:57] LABS: NT-proBNP 7260 pg/ml
[2023-11-21 17:02] VITALS: BP 104/66
[2023-11-21 17:07] LABS: Urine Albumin 1+ (Neg - Trace); Urine Bilirubin Negative (Negative); Urine Character Clear (Clear); Urine Color Yellow; Urine Glucose Negative (Negative); Urine Ketone Negative (Negative); Urine Leukocyte Negative (Negative); Urine Nitrite Negative (Negative); Urine Occult Blood 2+ (Negative); Urine Specific Gravity 1.015 (<1.030); Urine Urobilinogen Negative (Neg - 1+)
[2023-11-21 17:14] LABS: Urine Squamous Cell 0-2 /LPF (Few)
[2023-11-21 17:15] LABS: Urine Bacteria Many (Negative); Urine Red Blood Cell 0-2 /HPF (0-2); Urine White Cell 0-2 /HPF (0-5)
[2023-11-21] MEDS: LASIX 20 MG IV (17:29)
--- NOTE | 2023-11-21 18:06 | HPS.HSE ---
Family Physician
-
Family Physician: Eloy Hunter
Chief Complaint
-
confusion, weakness, hypoxia
History of Present Illness
73-year-old male past medical history of HFpEF, chronic right bundle branch block, pulmonary hypertension, mild aortic stenosis, hypertension, multiple myeloma, CKD 3B, obesity, type 2 diabetes, prostate cancer status post prostatectomy and
radiation, B12 deficiency, diverticulitis,, sciatica, insomnia, hepatic steatosis, hyponatremia, Pseudomonas bacteremia, renal stones, presenting for increased fatigue and weakness, hypotension and confusion that started 2 days ago that he was
discharged from [place].
He was discharged from [place] on Sunday after 10-day admission for multiple myeloma treatment with Talvey which he completed this recent Sunday. He has been sleeping a lot since discharge. Today he was seen by his strip machine operator Dr. Lal for
routine cardiology appointment. She referred him to the emergency room for hypotension and confusion. Family denies fevers or chills. He denies any pain.
Prior to his admission to [place] he had a fall. During admission he was found to have perisplenic hematoma. In addition for treatment of multiple myeloma he was also given a lot of IV fluids and developed pulmonary edema and was subsequently
diuresed. He had repeat CT scan on Sunday prior to discharge and hematoma was resolving however he was found to have severe sigmoid diverticulitis with suspected mural abscess without symptoms. He was started on Augmentin and discharged home.
Plan was for repeat CAT scan 10 days. He denies any abdominal pain, nausea vomiting or diarrhea. Denies vomiting.
He does have lower extreme edema which is improved after diuresis. He does have shortness of breath and cough which is ongoing. No chest pain.
He also has a history of cavitary lung lesions unclear whether this was due to infection or metastases. There was discussion for evaluation with PET scan.
Medical History
Past Medical History
Past Medical History: Reports Other ( HFpEF, chronic right bundle branch block, pulmonary hypertension, mild aortic stenosis, hypertension, multiple myeloma, CKD 3B, obesity, type 2 diabetes, prostate cancer status post prostatectomy and radiation,
B12 deficiency, diverticulitis,, sciatica, insomnia, hepatic steatosis, hyponatremia, Ps)
Past Surgical History: Reports None
Social History
Tobacco: Non-smoker
Alcohol: None
Drug: None
Family History
Family History: Not pertinent
Allergies / Home Medications
Allergies reflects when Allergies were last updated in [facility].
Home Medications with original date entered in [facility]
Allergy/Medication List:
Allergies
Allergy/AdvReac Type Severity Reaction Status Date / Time
bacitracin Allergy redness Verified 09/09/23 10:19
[From Neosporin
([id number])]
neomycin Allergy redness Verified 09/09/23 10:19
[From Neosporin
([id number])]
polymyxin B Allergy redness Verified 09/09/23 10:19
[From Neosporin
([id number])]
Home Medications
red yeast rice 600 mg tablet 1,200 mg PO DAILY Supplement 11/13/15
cholecalciferol (vitamin D3) 25 mcg (1,000 unit) tablet 1,000 units PO DAILY Supplement 08/20/20
acyclovir 400 mg tablet 400 mg PO BID Infection 10/22/22
coQ10 (ubiquinol) 100 mg capsule 100 mg PO DAILY Supplement 10/22/22
cyanocobalamin (vitamin B-12) 1,000 mcg tablet 1,000 mcg PO DAILY Supplement 10/22/22
denosumab 120 mg/1.7 mL (70 mg/mL) subcutaneous solution (Xgeva) 120 mg SC [id number] Cancer 10/22/22
loratadine 10 mg tablet (Claritin) 10 mg PO DAILY PRN allergies 10/22/22
tamsulosin 0.4 mg capsule (Flomax) 0.4 mg PO QPM Urinary issue 10/22/22
zolpidem 5 mg tablet (Ambien) 5 mg PO HS PRN insomnia 01/15/23
furosemide 80 mg tablet (Lasix) 80 mg PO DAILY Fluid Retention/Swelling 11/04/23
ambrisentan 5 mg tablet (Letairis) 5 mg PO DAILY 11/21/23
amoxicillin 875 mg-potassium clavulanate 125 mg tablet 1 tab PO BID Infection 11/21/23
guaifenesin 600 mg tablet, extended release 12 hr (Mucinex) 600 mg PO BID Congestion 11/21/23
sildenafil (pulm.hypertension) 20 mg tablet 20 mg PO TID pulmonary hypertension 11/21/23
sulfamethoxazole 800 mg-trimethoprim 160 mg tablet 1 tab PO MOWEFR@0800 prophylaxis 11/21/23
talquetamab-tgvs 1 dose SC Q2W multiple myeloma 11/21/23
Review of Systems
-
History Source: Patient
A 12 point ROS was completed and negative except as noted: Yes
Constitutional: Reports No Symptoms
EENT: Reports No Symptoms
Respiratory: Reports No Symptoms
Cardiac: Reports No Symptoms
Abdomen/GI: Reports No Symptoms
: Reports No Symptoms
Musculoskeletal: Reports No Symptoms
Skin: Reports No Symptoms
Neurological: Reports No Symptoms
Endocrine: Reports No Symptoms
Hematologic/Lymphatic: Reports No Symptoms
Psych: Reports No Symptoms
Physical Exam
Vital Signs
Vital Signs
Temp Pulse Resp BP Pulse Ox
98.7 F 103 24 104/66 95
11/21/23 14:35 11/21/23 17:15 11/21/23 17:15 11/21/23 17:02 11/21/23 17:15
Physical Exam
General: Well Developed, Well Nourished and No Apparent Distress
HEENT: NormoCephalic, Moist mucous membranes and Atraumatic
Respiratory: Clear
Cardiac: S1/S2 and Regular Rhythm; No Murmur or Rub
GI: Soft, Non Tender, Non Distended and Normal Bowel Sounds; No Organomegaly
Rectal: Deferred by Provider
Musculoskeletal: No Clubbing, No Cyanosis and No Edema
Skin: No Rash
Neuro: Nonfocal/grossly intact
Laboratory Results
-
11/21/23 15:30
11/21/23 15:30
Laboratory Results
PT 19.4 Sec (11.4-14.6) H 11/21/23 15:30
INR 1.63 11/21/23 15:
pH 7.49 (7.35-7.45) H 11/21/23 16:28
pCO2 29 mmHg (35-48) L 11/21/23 16:28
pO2 78 mmHg (83-108) L 11/21/23 16:
HCO3 22.1 mmol/L (21-28) 11/21/23 16:28
Lactic Acid 1.7 mmol/L (0.7-2.0) 11/21/23 15:
Total Bilirubin 0.8 mg/dl (0.2-1.3) 11/21/23 15:30
AST 21 U/L (17-59) 11/21/23 15:30
ALT 18 U/L (0-50) 11/21/23 15:30
Alkaline Phosphatase 114 U/L (38-126) 11/21/23 15:30
Troponin I < 0.012 ng/ml 11/21/23 15:30
Data Reviewed
-
Lab Data: Labs Reviewed by me
Old Records: Reviewed
Impression/Plan
-
IMPRESSION:
PLAN:
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
-Urinalysis negative
-Chest x-ray shows small stable left pleural effusion with associated atelectasis/pneumonia
-Check CT chest abdomen pelvis with IV contrast to evaluate for infectious etiology
-Check blood cultures
-Chronic antibiotics from Augmentin to vancomycin/Zosyn
-ID consulted
-May require neurology consult as well
#Recent diverticulitis by imaging
-Patient clinically without symptoms of diverticulitis
-Check repeat CT abdomen pelvis
History of Pseudomonas bacteremia secondary to wound/abrasion from fall
Chronic HFpEF
-Cardiac BNP 7200
-Given 1 L of IV fluids for sepsis picture however appears volume loaded on examination
-20 IV Lasix given
-Keep volume neutral for now, can diurese further after treatment of sepsis picture and after patient receives IV contrast for CT scan
-Venous ultrasound pending
Chronic right bundle branch block
History of pulmonary hypertension, WHO group 5
-Continue Ambrisentan, sildenafil
CKD 3B
-Creatinine 1.5 which is improved from baseline of 1.8-2
Chronic hyponatremia
-Improved
Refractory multiple myeloma status post treatment with Talvey
-Continue acyclovir
-Hold Bactrim for prophylaxis while on IV antibiotic
Recent splenic hematoma
-Improved on recent CT scan
Pancytopenia secondary to multiple myeloma
Type 2 diabetes
-not on medication
Prostate cancer status post prostatectomy/radiation
-Continue tamsulosin
History of pulmonary nodules secondary to metastases from myeloma versus prostate cancer versus cavitary infectious lesions
-Patient has had these pulmonary nodules previously unknown whether the etiology is prostate cancer metastases versus multiple myeloma versus infection
Vitamin B12 deficiency
Sciatica
Insomnia
-Hold zolpidem
Hepatic steatosis
Full code
DVT prophylaxis�heparin
Regular diet
[2023-11-21] MEDS: VANCOCIN 540 MG IV (19:12)
--- NOTE | 2023-11-21 19:23 | PHA.VAN.IN ---
Addendum entered and electronically signed by Dianna Taylor, [facility] 11/21/23 20:48:
MRSA PCR screen ordered per protocol
Original Note:
Assessment
- Assessment
Renal Function: Other (11/06/23 SCR = 2.3)
Concomitant Antimicrobials: ZOSYN
- Previous Dosing Experience
Previous Regimen: DOSING BY RANDOM LEVELS
Date of Regimen: 10/22/22
Provided Trough of: UNKNOWN
Provided AUC of: UNKNOWN
Patient's SCR is: Elevated compared to previous dosing experience (10/22/22 SCR: 1.1)
Patient's weight is: Decreased compared to previous dosing experience (10/22/22 WT = 98.1 KG)
Plan
- Plan
Initial / Loading Dose: 2GM
Maintenance Regimen: DOSING BY RANDOM LEVELS
Monitoring: RANDOM VANCOMYCIN LEVEL 11/22/23 AM
Pharmacokinetics Vancomycin I
- -
Patient Age: 73
Patient Sex: Male
Vancomycin Day #: 1
Indication: Pulmonary/Respiratory
Requesting Provider: MIGUEL
Pertinent Antimicrobial Allergies:
Allergies
bacitracin [From Neosporin ([id number])] Allergy (Verified 09/09/23 10:19)
redness
neomycin [From Neosporin ([id number])] Allergy (Verified 09/09/23 10:19)
redness
polymyxin B [From Neosporin ([id number]-tje-ccpry)] Allergy (Verified 09/09/23 10:19)
redness
Height / Weight:
Height 5 ft 6.5 in
Actual Weight 91.626 kg
Pertinent Past Medical History: MULTIPLE MYELOMA, CAVITARY LUNG LESIONS
- Vital Signs / Lab Results
Temp Pulse Resp BP Pulse Ox
98.7 F 101 23 104/66 96
11/21/23 14:35 11/21/23 17:30 11/21/23 17:30 11/21/23 17:02 11/21/23 17:30
Lab Results - Hematology
11/21/23
15:30
WBC 3.8 L
Lab Results - Chemistry
11/21/23
15:30
BUN 38 H
Creatinine 1.5 H
Albumin 2.8 L
11/21/23
15:30
Lactic Acid 1.7
Lab Results - Urine
11/21/23
16:59
Urine Nitrite (Reflex) Negative
Leukocyte Esterase Rfl Negative
Urine WBC (Reflex) 0-2
Ur Squamous Epith Cells 0-2
Urine Bacteria (Reflex) Many A
Microbiology Results
11/21/23 15:36 Influenza Types A & B (ARMEN) - Final
Nasal Swab Negative for Influenza A & B, NAAT
Negative results must be combined with clinical observations
and patient history.
Nucleic Acid Amplification test (NAAT)performed on the
[employer] platform.
[2023-11-21 19:59] VITALS: BMI 30.9
[2023-11-21 20:02] VITALS: BP 100/61
[2023-11-21 20:09] VITALS: BMI 30.9
[2023-11-21] MEDS: REVATIO 10 MG PO (21:44)
[2023-11-21] MEDS: HEPARIN 5000 UNITS SC (21:45)
[2023-11-21] MEDS: ZOVIRAX 400 MG PO (21:45)
[2023-11-21] MEDS: MUCINEX 600 MG PO (21:45)
[2023-11-21 22:00] VITALS: BP 105/54
[2023-11-21] MEDS: ZOSYN 100 IV (22:05)
[2023-11-21] MEDS: TYLENOL 650 MG PO (23:32)
[2023-11-22] VITALS (42 sets, daily range): BP systolic 81–114; BP diastolic 43–71; BMI 31.0
[2023-11-22] MEDS: ZOSYN 100 IV ×4 (04:50→21:39)
--- NOTE | 2023-11-22 05:08 | PTCARENOTE ---
Floyd was admitted into room 3353 overnight from the ED. Oriented to room and use of call bal. Tele monitor applied showing NSR/ST with PVCs. 3L NC in place. Febrile; Tylenol provided. Patient forgetful overnight and attempted to get out of bed to
void without utilizing the call bal for assistance. Education provided on fall prevention and how to use the call bal; pt verbalized understanding. Assisted with the urinal. Tolerating IV Abx. Bed alarm set. Tray table and call bal within reach.
[2023-11-22 05:30] LABS: % Basophils 0.2 % (0-2); % Eosinophils 1.6 % (0-6); % Immature Granulocytes 6.3 % (0-0.5); % Lymphocytes 11.4 % (20.5-51.1); % Monocytes 9.8 % (1.7-9.3); % Neutrophils 70.7 % (42.2-75.2); Absolute Eosinophils 0.1 10^3/uL (0-0.7); Absolute Immature Granulocytes 0.3 10^3/uL (0-0.05); Absolute Lymphocytes 0.5 10^3/uL (1.2-3.4); Absolute Monocytes 0.4 10^3/uL (0.1-0.6); Absolute Neutrophils 3.2 10^3/uL (1.4-6.5); Hematocrit 23.9 % (39.0-52.0); Hemoglobin 7.8 g/dL (13.0-18.0); Mean Corp Hgb Conc. 32.6 g/dL (33.0-37.0); Mean Corpuscular Hgb 32.4 pg (27.0-31.0); Mean Corpuscular Volume 99.2 fL (80.0-94.0); Mean Platelet Volume 11.1 fL (7.4-10.4); Nucleated Red Blood Cells % 0.4 % (-); Platelet Count 138 10^3/uL (130-400); Red Blood Cell Count 2.41 10^6/uL (4.70-6.10); Red Cell Dist. Width 20.8 % (11.5-14.5); White Blood Cell Count 4.5 10^3/uL (4.8-10.8)
[2023-11-22 05:48] LABS: Vancomycin Random 16.3 ug/ml
[2023-11-22 07:34] LABS: ALT (SGPT) 16 U/L (0-50); AST (SGOT) 18 U/L (17-59); Albumin 2.5 g/dl (3.5-5.0); Alkaline Phosphatase 109 U/L (38-126); Blood Urea Nitrogen 33 mg/dl (9-20); Calcium 6.6 mg/dl (8.4-10.2); Carbon Dioxide 20 mmol/L (22-30); Chloride 111 mmol/L (98-107); Estimated Creatinine Clearance 49 ml/min; Glucose 103 mg/dl (70-99); Potassium 3.8 mmol/L (3.5-5.1); Sodium 137 mmol/L (135-145); Total Bilirubin 0.9 mg/dl (0.2-1.3); Total Protein 8.5 g/dl (6.3-8.2); eGFR 52.74
[2023-11-22] MEDS: HEPARIN 5000 UNITS SC ×2 (08:22→19:48)
[2023-11-22] MEDS: VITAMIN B-12 1000 MCG PO (08:22)
[2023-11-22] MEDS: ZOVIRAX 400 MG PO ×2 (08:22→19:48)
[2023-11-22] MEDS: REVATIO 10 MG PO ×2 (08:22→16:15)
[2023-11-22] MEDS: MUCINEX 600 MG PO ×2 (08:22→19:48)
[2023-11-22] MEDS: VITAMIN D3 (cholecalciferol) 25 MCG PO (08:22)
--- NOTE | 2023-11-22 08:49 | PHA.VAN.FU ---
Vancomycin Assessment / Plan
- Assessment
Renal Function: Stable
WBC's are: Stable
Concomitant Antimicrobials: piperacillin/tazobactam
- Assessment - Therapeutic Drug Monitoring
Random Level: 16.3 - drawn ~10H after 2000mg loading dose
- Dosing Plan
Dosing by Level: Re-dose today (Vanc 1250mg)
- Monitoring Plan
Random Level: 11/22 0600
- Follow Up
Pharmacy will continue to follow.
Vancomycin Follow UP
- -
Patient Age: 73
Patient Sex: Male
Vancomycin Day #: 2
Indication: Pulmonary/Respiratory
Requesting Provider: Dr. Gipson
Pertinent Antimicrobial Allergies:
bacitracin / neomycin /polymyxin B [From Neosporin] - redness
Height / Weight:
Height 5 ft 7 in
Actual Weight 89.8 kg
Pertinent Past Medical History: BMI ~31, Multiple myeloma, CKD, DM2
- Vital Signs / Lab Results
Temp Pulse Resp BP Pulse Ox
99.1 F 96 24 99/65 96
11/22/23 07:32 11/22/23 06:00 11/22/23 06:00 11/22/23 06:00 11/22/23 05:30
Lab Results - Hematology
11/21/23 11/22/23
15:30 05:11
WBC 3.8 L 4.5 L
Lab Results - Chemistry
11/21/23 11/22/23 11/22/23
15:30 05:11 06:34
BUN 38 H Cancelled 33 H
Creatinine 1.5 H Cancelled 1.4 H
Estimated Creat Clear Cancelled 49
Albumin 2.8 L Cancelled 2.5 L
11/21/23
15:30
Lactic Acid 1.7
Lab Results - Urine
11/21/23
16:59
Urine Nitrite (Reflex) Negative
Leukocyte Esterase Rfl Negative
Ur Squamous Epith Cells 0-2
Microbiology Results
11/21/23 15:36 Influenza Types A & B (ARMEN) - Final
Nasal Swab Negative for Influenza A & B, NAAT
Negative results must be combined with clinical observations
and patient history.
Nucleic Acid Amplification test (NAAT)performed on the
[employer] platform.
Therapeutic Drug Monitoring
Random Vancomycin 16.3 ug/ml 11/22/23 05:11
--- NOTE | 2023-11-22 09:15 | W.PN.CARDCBS ---
Today's Communication / Plan
-
Cont supportive care and broad spectrum abx.
Will consider additional lasix today if bp can tolerate.
Impression / Plan
-
.
Primary Radio Presenter: Dr. Ginger Lal
PCP: Dr. Hunter
Impression:
-Hypoxia
-Hypotension
-Confusion
-Concern for septic shock
-Admission to [facility], discharged 11/19/2023 after initiation of Talvey therapy for refractory myeloma
-Active Multiple myeloma
-Diverticular abscess, treated with Augmentin, with hx diverticulitis 2015
-Concern for septic emboli of lungs by review of records from [place]
-Pulmonary hypertension and chronic RV dysfunction/heart failure with preserved ejection fraction
-Mild aortic stenosis
-Hypertension
-Dyslipidemia on red yeast rice
-CT imaging noting coronary atherosclerosis without history of IN
-Aortic atherosclerosis without aneurysm
-Right bundle branch block
-Type 2 diabetes mellitus
-Fatty liver infiltration
-Hx prostate cancer status post prostatectomy
-Degenerative joint disease of lumbar spine
-Hyponatremia
Echocardiogram 08/30/2023: Ejection fraction 55 to 60%, D-shaped septum in systole and diastole consistent with RV pressure and volume overload, mild aortic stenosis with mean gradient of 11 mmHg aortic valve area 1.5 cm�, mild TR with PA systolic of
55 mmHg
Echo 11/05/2023: Mildly reduced left ventricular systolic function. Global hypokinesis. Abnormal (paradoxical) septal motion consistent with left bundle branch block. Flattened septum in systole consistent with RV pressure overload. Left ventricular
ejection fraction is 40-45 %. Trace mitral regurgitation. Aortic valve peak/mean gradients are 23/15 mmHg. MARYELLEN 1.2 cm2. Mild aortic stenosis. Estimated pulmonary artery pressure of 30-35 mmHg.
Right heart catheterization 09/13/2023
Hemodynamics (mmHg):
RA (m) : 13
RV (s/d,m) : 77/12, 17
PA (s/d, m) : 77/23, 48
PCWP (m) : 18
Cardiac Output : 5.2 L/min
Cardiac Index : 2.5 L/min/m-2
Systemic vascular resistance: 13.5 Wood units or 1077 [id number]-zj(-5)
Pulmonary vascular resistance: 5.8 Wood units or 461 [id number]-[id number](-5)
CONCLUSION:
1.� Postcapillary pulmonary hypertension with hemodynamics most consistent with group 2 and group 5 with mean PA pressure of 48 mmHg, pulmonary capillary wedge pressure 18 mmHg and PVR 5.8 Wood units
Plan:
HPI: Patient was seen in office 11/21/2023 and was noted to be confused, hypoxic, and hypotensive with SBP 80s mmHg and Pox 89-90%, so sent urgently to ER. He had recent admission to [facility] (discharged Sunday11/19/23) where he was started on Talvey
for refractory/resistant myeloma.
Cont work up and tx of sepsis as per primary service. Cont broad spectrum abx.
He had CT abd with diverticular abscess and concern for septic emobli to lungs, at [facility] and had been on Augmentin
Venous u/s neg for DVT
Chest xray Nov 21 2023: Stable small left pleural effusion with associated atelectasis and/or pneumonia.
CT chest/abd/pelvis Nov 21 2023:
1. Acute diverticulitis of the mid sigmoid colon, progressed. Resolving diverticulitis of the hepatic flexure.
2. New 2.7 cm rim-enhancing subcapsular right hepatic lobe cystic lesion highly suggestive of abscess.
3. Findings suggesting splenic infarcts, new from prior.
4. Small left pleural effusion with associated left lower lobe atelectasis and/or pneumonia, slightly progressed.
5. Grossly stable scattered small bilateral upper lung zone nodules. Differential includes septic emboli versus metastases.
pBNP 7260, higher than recent admit. Cr stable at 1.4.
Received IVF and lasix November 20. Consider addtional lasix IV if bp can tolerate.
-He underwent TTE 11/13/23 at [facility] with increased PASP 57mmHg, not felt to be far off from baseline with RV dysfunction, which is known, stable mild
His pulmonary hypertension is felt to be likely secondary to prior immunotherapy (kyprolis), WHO group 1/5 with NYHA class 2 symptoms. most recent RHC as above
Family has been updated last 24 hrs.
Progress Note - Radio Presenter
Subjective
Date of Service: November 22, 2023
Pt seen and examined. No complaints. No chest pain or shortness of breath.
Objective
Labs:
11/22/23 05:11
11/22/23 06:34
Labs
Hgb 7.8 g/dL (13.0-18.0) L 11/22/23 05:11
Hct 23.9 % (39.0-52.0) L 11/22/23 05:11
Plt Count 138 10^3/uL (130-400) 11/22/23 05:11
PT 19.4 Sec (11.4-14.6) H 11/21/23 15:30
INR 1.63 11/21/23 15:30
Sodium 137 mmol/L (135-145) 11/22/23 06:34
Potassium 3.8 mmol/L (3.5-5.1) 11/22/23 06:34
BUN 33 mg/dl (9-20) H 11/22/23 06:34
Creatinine 1.4 mg/dL (0.7-1.3) H 11/22/23 06:34
Glucose 103 mg/dl (70-99) H 11/22/23 06:34
Troponins
11/21/23
15:30
Troponin I < 0.012
Vital Signs and I&O:
Vital Signs
Temp Pulse Resp BP Pulse Ox
99.1 F 96 24 99/65 96
11/22/23 07:32 11/22/23 06:00 11/22/23 06:00 11/22/23 06:00 11/22/23 05:30
Vital Signs
Temp Pulse Resp BP Pulse Ox
99.1 F 96 24 99/65 96
11/22/23 07:32 11/22/23 06:00 11/22/23 06:00 11/22/23 06:00 11/22/23 05:30
Intake & Output
11/20/23 11/21/23 11/22/23 11/23/23
06:59 06:59 06:59 06:59
Intake Total 100 / 100
Output Total 550 / 550 150 / 150
Balance -450 / -450 -150 / -150
Physical Exam
Physical Exam
General: No acute distress, AAOX3
Neck: Negative JVD
Heart: Regular, Negative S3 positive S1/S2, Negative S4, No murmur
Lungs: CTA b/l, negative wheezes/rales/rhonchi
Abd: Positive BS, NT/ND, neg rebound/rigidity/guarding
Ext: Negative cyanosis/clubbing/edema
Neuro: nonfocal
--- NOTE | 2023-11-22 09:38 | CON.ID ---
Consultation
-
Date/Time Consultation Requested: November 21, 20236
Date/Time Consultation Performed: November 22, 2023 0997
Requesting Provider: Dr. Neel Martins
Performing Provider: Dr. Kamilah English
Reason for Consultation: Sepsis concern for septic emboli
Chief Complaint / Past History
Chief Complaint
Weakness
History of Present Illness
History obtained from patient as well as review of outside and medical records. 73-year-old male with diabetes mellitus type 2, heart failure with preserved EF, refractory multiple myeloma recent hospitalization 11/02 to 11/05 at with PNA,
Pseudomonas and anaerobic bacteremia after a fall sustaining abrasions. He was discharged on Levofloxacin and metronidazole through 11/12/23. He was then electively admitted at [facility] on 11/12/2023 for infusion of new regimen Talvey for refractory
multiple myeloma. He had baseline chest CT on November 11 which showed multifocal cavitary nodules concerning for septic emboli versus cavitating metastases, small pleural effusion on the left with associated compressive atelectasis, suspected perisplenic
hematoma and possible laceration. On November 12, TTE showed no vegetations, blood cultures were negative. Patient received 10 days of Talvey. Hospital course complicated by pulmonary edema/volume overload requiring diuresis. He had repeat CAT scan on
November 18 which showed resolving splenic subcapsular hematoma with evolving splenic infarcts. There is moderate to severe sigmoid diverticulitis with findings suggestive of intramural abscess. There were hyperenhancing lesions in the liver which were
present on the prior examination. Patient was asymptomatic without abdominal pain. He was discharged on a 10-day course of Augmentin and plan for repeat CAT scan in 2 weeks. The day after discharge from [facility], patient became very weak and
lethargic. He slept a lot. He was somewhat confused. Blood pressure was low. He therefore came back to [facility] on November 20. He spiked a fever last night 101. He had CT of the chest abdomen pelvis which showed acute diverticulitis of
mixed sigmoid colon which has progressed compared to October CAT scan, resolving diverticulitis of the hepatic flexure. There is new 2.7 cm rim-enhancing subcapsular right hepatic lobe cystic lesion suggestive of abscess. Also with splenic infarcts.
He is currently on vancomycin and Zosyn. Today patient reports again he has no abdominal pain. No nausea or vomiting. He did not have fevers at home. No cough or shortness of breath. No urinary symptoms. No headache.
Past History
Additional Past Medical History:
Refractory Multiple myeloma
DM type 2
Hypertension
Congestive heart failure slight reduced EF
Pulmonary hypertension
Nephrolithiasis
CKD3b
Pulmonary nodules
Diverticulitis
Fatty liver
hx [place] 9 prostate cancer s/p prostatectomy/XRT (2020) with recurrence by PET
Allergy History:
bacitracin [From Neosporin ([id number])] Allergy (Verified 09/09/23 10:19)
redness
neomycin [From Neosporin ([id number])] Allergy (Verified 09/09/23 10:19)
redness
polymyxin B [From Neosporin ([id number])] Allergy (Verified 09/09/23 10:19)
redness
Medications Reviewed: Yes
Current Antibiotics:
Vancomycin
Zosyn
Social History
Tobacco: Non-Smoker
Alcohol: None
Drug: None
Personal:
Living: With Family
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
Family History
Family History: Not Pertinent
Review of Systems
Review of Systems
General: Change in Appetite
HEENT: Negative Stiff Neck, Sinus Problems or Headache
Cardiovascular: Edema; Negative Chest Pain
Respiratory: Negative Dyspnea or Cough
Gasteroenterology: Other (no diarrhea); Negative Nausea or Vomiting
Genital / Urological: Negative Dysuria or Flank Pain
Endocrine: Weakness
Musculoskeletal: Negative Arthralgias
Skin / Hair / Nails: Negative Rash
Neurological: Negative Headache or Dizziness
All systems: All other systems were reviewed and were negative
Vital Signs
Temp Pulse Resp BP Pulse Ox
99.1 F 96 24 99/65 96
11/22/23 07:32 11/22/23 06:00 11/22/23 06:00 11/22/23 06:00 11/22/23 05:30
Selected Entries
11/21/23
22:42
Temp 101.0 F H
Physical Exam
Physical Exam
Constitutional: No Acute Distress and Comfortable
Eyes: No Conjunctival Hemorrhage and Sclera Anicteric
Pharynx: Benign
Oral: No Thrush
Cardiovascular: Other (tachycardic)
Pulmonary: Clear
Gastrointestinal: Soft, Non Tender, Non Distended and Normal Bowel Sounds
Genito-Urinary: Negative CVA Tenderness
Extremities: Edema (1+ ble)
Musculoskeletal: Negative Spinal Tenderness
Neurological: AO x 3
Lab / Diagnostic Study Results
11/22/23 05:11
11/22/23 06:34
Abs Immat Gran (auto) 0.3 10^3/uL (0-0.05) H 11/22/23 05:11
Absolute Neuts (auto) 3.2 10^3/uL (1.4-6.5) 11/22/23 05:11
Absolute Lymphs (auto) 0.5 10^3/uL (1.2-3.4) L 11/22/23 05:11
Absolute Monos (auto) 0.4 10^3/uL (0.1-0.6) 11/22/23 05:11
Absolute Basos (auto) 0.0 10^3/uL (0-0.2) 11/22/23 05:11
Immature Gran % 6.3 % (0-0.5) H 11/22/23 05:11
Neutrophils % 70.7 % (42.2-75.2) 11/22/23 05:11
Lymphocytes % 11.4 % (20.5-51.1) L 11/22/23 05:11
Monocytes % 9.8 % (1.7-9.3) H 11/22/23 05:11
Eosinophils % 1.6 % (0-6) 11/22/23 05:11
Basophils % 0.2 % (0-2) 11/22/23 05:11
PT 19.4 Sec (11.4-14.6) H 11/21/23 15:30
INR 1.63 11/21/23 15:30
Lactic Acid 1.7 mmol/L (0.7-2.0) 11/21/23 15:30
Ur Squamous Epith Cells 0-2 /LPF (Few) 11/21/23 16:59
Microbiology Results
Micro:
11/21/23 22:05 Nasal Screen MRSA (PCR) - Final
Nose Staph aureus MRSA
11/21/23 16:59 Urine Culture - NO GROWTH
Urine
11/21/23 15:36 Influenza Types A & B (ARMEN) - Final
Nasal Swab Negative for Influenza A & B, NAAT
Negative results must be combined with clinical observations
and patient history.
Nucleic Acid Amplification test (NAAT)performed on the
[employer] ID NOW platform.
11/21/23 15:30 Blood Culture - Pending
Blood/Venous
11/21/23 15:37 Blood Culture - Pending
Blood/Venous
11/21/23 CT a/p w IV contrast: Acute diverticulitis of the mid sigmoid colon, progressed. Resolving diverticulitis of the hepatic flexure. New 2.7 cm rim-enhancing subcapsular right hepatic lobe cystic lesion highly suggestive of abscess. Findings
suggesting splenic infarcts, new from prior. Small left pleural effusion with associated left lower lobe atelectasis and/or pneumonia, slightly progressed. Grossly stable scattered small bilateral upper lung zone nodules. Differential includes
septic emboli versus metastases.
11/21/23 CXR: Stable small left pleural effusion with associated atelectasis and/or pneumonia.
[facility] imaging:
11/19/23 CT a/p with IV contrast: Moderate to severe sigmoid diverticulitis diverticulitis with findings are suggestive of intramural abscesses. Smaller subcapsular splenic fluid collection, significantly decreased in size since chest CT on 11/12/2023,
likely reflecting a resolving subcapsular hematoma with evolving splenic infarcts.Redemonstrated partially visualized pulmonary nodules in the right lung some of which are cavitary, may reflect septic emboli versus metastases.Soft tissue thickening
in the prostatic bed compatible with known prostate cancer recurrence, which is similar to 09/09/2023. Local invasion of prostate cancer to the adjacent structures will be better characterized on MRI.Hyperenhancing lesions in the liver, which were
present on the prior examination. These lesions are not well characterized. See above description. MRI of the liver can be considered for further evaluation.Stable nonspecific perihepatic complex ascites. Indeterminant whether the hyperattenuating
components are enhancing or represent hemorrhagic/proteinaceous material.
11/12/2023 CT chest wo: Multifocal cavitating nodules are concerning for septic emboli versus cavitating metastases. Small left pleural effusion and associated compressive atelectasis.
Mixed lytic and sclerotic lesion in the lateral left fifth and sixth ribs may reflect metastatic disease or sequelae of multiple myeloma. Suspected perisplenic hematoma and possible laceration, incompletely characterized.
Assessment / Plan
# Progression of sigmoid diverticulitis compared to 09/2023 - pt wo abdominal sxs
# New liver lesion suspicious for abscess
# Fever
# MRSA colonization
- Follow blood cx's.
- If, able aspirate liver abscess for aerobic and anaerobic cultures
- Continue Vancomycin and Zosyn for now.
# Splenic infarct
-Suspect due to recent fall on to right side in October 2023
- 11/[address] showed travon-splenic, subcapsular hematoma.
11/[address]: resolving splenic hematoma with evolving infarct
- 11/12 outside blood cx's negatove
-11/12 outside TTE negative
# Pulmonary nodules, some cavitary are not new
- Suspect metastasis
# Change in mental status due to ICANS from Talvey per Hem/onc
- Now on steroid.
# Refractory multiple myeloma
# Recurrent prostate ca
Care Review
Plan reviewed with: Physician (Dr. Martins)
--- NOTE | 2023-11-22 09:47 | W.PN.HOSP.TC ---
Addendum entered and electronically signed by Neel Martins MD 11/22/23 11:43:
Spoke to patient's and daughter on the phone and updated regarding plan of care and CT findings. They had a lot of questions all were answered.
They requested Palliative care
Rec OP Palliative care ( Case management to give information)
Original Note:
Today's Communication/Plan
-
IV AB
Await CX
Hold Lasix today
IS added
Assessment / Plan
Assessment / Plan
73-year-old male with multiple myeloma had a treatment at [facility] and was discharged on 11/18/2023. He was got Talvey and increment doses. Once he got home he was sleeping a lot. He saw Dr. Lal in the office and was referred to the ER because
of confusion and hypotension. Patient denies any dysuria, abdominal pain, diarrhea, cough, shortness of breath, chest pain, fever. During the admission he was given IV fluids and developed pulmonary edema and needed to be diuresed. He had a
perisplenic hematoma where he had a fall while going to [facility] prior to admission to [facility]. That is resolving. On the CT patient was found to have severe sigmoid diverticulitis with suspected mural abscess without symptoms. He was started on
Augmentin and was discharged home. Plan was to repeat CAT scan in [address] of the chest abdomen pelvis-acute diverticulitis of the mid sigmoid colon progressed. Resolving diverticulitis of the hepatic flexure. New 2.7 cm rim-enhancing subcapsular right hepatic lobe cystic lesion suggestive of an abscess. Findings
suggestive of splenic infarct. Small left pleural effusion associated left lower lobe atelectasis and/or pneumonia progress. Scattered small bilateral upper lobe zone nodules septic emboli versus metastasis.
Echo 11/05/2023-mildly reduced LV systolic function. Global hypokinesis. Paradoxical septal motion consistent with left bundle branch block. Flattened septum in systole consistent with RV pressure overload. Ejection fraction 40 to 45%. Pulmonary
pressure 30-35 mm Hg.
# Hypotension-likely secondary to shock-septic shock
As needed start for Levophed ordered to keep MAP above 65 mmHg.
Hold Lasix now
# Sepsis likely-likely not mounting much symptoms of infection secondary to his low immunity. Source of infection likely diverticulitis. Lesion in the liver is concerning for an abscess. Lung lesions septic emboli versus metastasis.
Broad-spectrum antibiotics
Blood cultures are pending
Will request colorectal to weigh in
Infectious disease has been consulted
Currently on vancomycin and Zosyn. Will for antibiotic changed to infectious disease
#Multiple myeloma diagnosed in November 2020.
He follows with Dr. Aleman at [facility] and also with Dr. Isa Lewis.
He was maintained on Carfilzomib, Pomalidomide, and dexamethasone.
When he developed pulmonary artery hypertension he was switched to Tecvayli .
Currently on Talvey started last admission at [facility] .
Patient is also maintained on acyclovir prophylaxis along with Bactrim prophylaxis
Heme eval
# Acute hypoxic respiratory insufficiency-secondary to pneumonia versus atelectasis
IS
Continue antibiotics
# TME likely secondary infection-Improving.
# Hyponatremia
# Pancytopenia secondary to multiple myeloma
# Chronic heart failure Combined HFPEF and HFREF-on Lasix 80 mg daily as Op-Hold due to Hypotension.

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
# ANAI - Creat better -? Also has CKD since creat up since Aug 2023
# Mild aortic stenosis
# Hypertension-Not on meds now
# Dyslipidemia /Atherosclerosis-Red Yeast Rice
# Right bundle branch block
# Type 2 diabetes-Diet controlled now
# Hepatic steatosis
# History of prostate cancer status post prostatectomy and radiation-follows with Dr. Escalona-technically cleared with very low PSA-Continue Flomax
# Pulmonary nodules
# Vitamin B12 deficiency-on supplement
# Diverticulosis
# Hypoalbuminemia
# Sciatica
# Insomnia-continue Ambien
# Ex-smoker
# SCds for DVT Prophylaxis
# Full CODE
Discussed with infectious disease
Unfortunately patient is in a very tough spot given his advanced disease and also symptoms of infection. Close monitoring
High Risk situation
D/W OP nephrology
Time spent 52 min
Anticipated Discharge: > 48 hours
Subjective/Interval History
-
Date of Service: November 22, 2023
Objective Data
-
Labs:
Laboratory Results
11/22/23 11/22/23
05:11 06:34
WBC 4.5 L
Hgb 7.8 L
Hct 23.9 L
Plt Count 138
Sodium Cancelled 137
Potassium Cancelled 3.8
Chloride Cancelled 111 H
Carbon Dioxide Cancelled 20 L
BUN Cancelled 33 H
Creatinine Cancelled 1.4 H
Glucose Cancelled 103 H
Calcium Cancelled 6.6 L*
Total Bilirubin Cancelled 0.9
AST Cancelled 18
ALT Cancelled 16
Alkaline Phosphatase Cancelled 109
Vital Signs:
Vital Signs
Temp Pulse Resp BP Pulse Ox
99.1 F 96 24 99/65 96
11/22/23 07:32 11/22/23 06:00 11/22/23 06:00 11/22/23 06:00 11/22/23 05:30
I&O
11/21/23 11/22/23 11/23/23
06:59 06:59 06:59
Intake Total 100 / 100
Output Total 550 / 550 150 / 150
Balance -450 / -450 -150 / -150
--- NOTE | 2023-11-22 10:58 | PTCARENOTE ---
Assumed care of patient this morning. He is oriented x2, disoriented to month. Pt SR to ST with exertion on monitor. +2 LE edema. BP has been soft, 80s-90s systolic. Order for Levophed, see SEP. Pt was on 3L NC but needed to increase to 4L. Lungs
with crackles. Pt denies any SOB but patient looks dyspneic at rest and on exertion. Pt has urgency and stress incontinence, wear his own briefs from home. Pt's family in room and updated per my ability. They also asked for an update from doctor and
made aware. Assessment, care and VS as charted.
--- NOTE | 2023-11-22 11:06 | CM ---
CM following re: discharge planning.
Reviewed pt's chart, met with pt. Pt's spouse, daughter and brother in law at bedside.
Pt is a 73 year old male, admitted with primary dx of Hypotension-likely secondary to shock-septic shock.
Pt reports he lives with spouse in a 2SH, 2 steps to enter, has 2 supportive daughters, ambulates without any assistive devices, had [facility] in the past and was going to outpatient PT/OT. Per spouse, pt had many hospitalization in the past months,
became weaker and per spouse pt will need some support at discharge. Both pt and his family are open to accept any recommendations: SNF or home PT. Per family is SNF level of care recommended then preferred SNF will be [facility] or [facility]. If home PT
recommended then family preferred [facility].
Pt's spouse stated that pt has a [employer] insurance policy and per family request a list of private duty caregiver services provided to pt's and his family.
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
PT and OT will evaluate the pt to determine a level of care at discharge.
PCP: Eloy Hunter
Pharmacy: [facility]
D/c plan: most likely home with [facility], caregiver services and family support.
CM will follow with discharge plan updates as hospitalization progresses
--- NOTE | 2023-11-22 11:09 | CON.ONC ---
Impression
Impression
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
Rule out sepsis
Recent diverticular abscess
Refractory multiple myeloma with associated pancytopenia
Recent Pseudomonas bacteremia
Recent splenic hematoma
Pulmonary hypertension
History of B12 deficiency
History of prostate carcinoma
Plan
Plan
As per NCI CTCAE neurotoxicity scale patient initially grade 1 when reevaluated appears to be progressing to grade 2
Levophed for blood pressure support
Initiate dexamethasone 10 mg IVPB every 6 hours
Neurology evaluation for consideration of EEG and and seizure prophylaxis
Patient History
History of Present Illness
73-year-old male past medical history of refractory IgG kappa multiple myeloma, HFpEF, chronic right bundle branch block, pulmonary hypertension, mild aortic stenosis, hypertension, CKD 3B, obesity, type 2 diabetes, prostate cancer status post
prostatectomy and radiation, B12 deficiency, diverticulitis,, sciatica, insomnia, hepatic steatosis, hyponatremia, Pseudomonas bacteremia, renal stones, presenting following a prolonged hospitalization at [facility] with for increased fatigue, weakness,
hypotension and confusion. He was recently started on salvage therapy with Talvey Prior to his [facility] admission he had a fall resulting in a perisplenic hematoma. His hospitalization was further complicated asymptomatic severe sigmoid diverticulitis
with suspected mural abscess without symptoms. He was started on Augmentin and discharged with plan for follow-up CT in 10 days. Unfortunately his current symptoms seem to reflect sepsis. He is improving with broad-spectrum antibiotic intravenous
antibiotics.
Past-Medical/Surgical History
Past Medical History
HFpEF, chronic right bundle branch block, pulmonary hypertension, mild aortic stenosis, hypertension, multiple myeloma, CKD 3B, obesity, type 2 diabetes, prostate cancer status post prostatectomy and radiation, B12 deficiency, diverticulitis,,
sciatica, insomnia, hepatic steatosis, hyponatremia
Social History
Tobacco: Non-smoker
Alcohol: None
Drug: None
Family History
Family History: Not pertinent
Allergies / Home Medications
Patient Medication
�Medication �Instructions �Recorded �Confirmed �Last Taken �Type
red yeast rice 600 mg tablet 1,200 mg PO DAILY Supplement 11/13/15 11/21/23 11/21/23 History
acyclovir 400 mg tablet 400 mg PO BID Infection 10/22/22 11/21/23 11/21/23 History
coQ10 (ubiquinol) 100 mg capsule 100 mg PO DAILY Supplement 10/22/22 11/21/23 11/21/23 History
cyanocobalamin (vitamin B-12) 1,000 mcg PO DAILY Supplement 10/22/22 11/21/23 11/21/23 History
1,000 mcg tablet
denosumab 120 mg/1.7 mL (70 mg/mL) 120 mg SC [id number] Cancer 10/22/22 11/21/23 1 Month Ago History
subcutaneous solution (Xgeva) ~10/22/23
loratadine 10 mg tablet (Claritin) 10 mg PO DAILY PRN allergies 10/22/22 11/21/23 Unknown History
tamsulosin 0.4 mg capsule (Flomax) 0.4 mg PO QPM Urinary issue 10/22/22 11/21/23 11/20/23 History
zolpidem 5 mg tablet (Ambien) 5 mg PO HS PRN insomnia 01/15/23 11/21/23 Unknown History
furosemide 80 mg tablet (Lasix) 80 mg PO DAILY Fluid 11/04/23 11/21/23 11/21/23 History
Retention/Swelling
ambrisentan 5 mg tablet (Letairis) 5 mg PO DAILY Endothelin Receptor 11/21/23 11/21/23 11/21/23 History
Antag
amoxicillin 875 mg-potassium 1 tab PO BID Infection 11/21/23 11/21/23 11/21/23 History
clavulanate 125 mg tablet
guaifenesin 600 mg tablet, 600 mg PO BID Congestion 11/21/23 11/21/23 11/21/23 History
extended release 12 hr (Mucinex)
sildenafil (pulm.hypertension) 20 20 mg PO TID pulmonary hypertension 11/21/23 11/21/23 11/21/23 History
mg tablet
sulfamethoxazole 800 1 tab PO MOWEFR@0800 prophylaxis 11/21/23 11/21/23 11/21/23 History
mg-trimethoprim 160 mg tablet
talquetamab-tgvs 1 dose SC Q2W multiple myeloma 11/21/23 11/21/23 11/17/23 History
cholecalciferol (vitamin D3) 25 25 mcg PO DAILY Supplement 11/22/23 11/22/23 11/21/23 History
mcg (1,000 unit) tablet (Vitamin
D3)
Active Medications
Generic Name Dose Route Start Last Admin
Trade Name Freq PRN Reason Stop Dose Admin
Acetaminophen 650 mg 11/21/23 23:10 11/21/23 23:32
Acetaminophen 325 Mg Tablet PO 12/19/23 23:09 650 mg
Q4HPRN PRN Administration
mild pain/ fever>100.5F
Acyclovir Sodium 400 mg 11/21/23 20:00 11/22/23 08:22
Acyclovir Sodium 200 Mg Capsule PO 12/20/23 19:59 400 mg
BID SOULEYMANE Administration
Cholecalciferol 25 mcg 11/22/23 08:00 11/22/23 08:22
Cholecalciferol (Vitamin D3) 25 Mcg Tablet (1,000 Units) PO 12/20/23 07:59 25 mcg
DAILY SOULEYMANE Administration
Cyanocobalamin 1,000 mcg 11/22/23 08:00 11/22/23 08:22
Cyanocobalamin 1,000 Mcg Tablet PO 12/20/23 07:59 1,000 mcg
DAILY SOULEYMANE Administration
Guaifenesin 600 mg 11/21/23 20:00 11/22/23 08:22
Guaifenesin 600 Mg Extended Release Tablet PO 12/19/23 19:59 600 mg
BID SOULEYMANE Administration
Heparin Sodium 5,000 units 11/21/23 20:00 11/22/23 08:22
Heparin 5,000 Units/Ml 1 Ml Vial SC 12/19/23 19:59 5,000 units
Q12 SOULEYMANE Administration
Vancomycin HCl 1 each/ Device 0 mls @ 0 mls/hr 11/21/23 20:00
IV
PER PROTOCOL SOULEYMANE
Protocol
As Directed
Piperacillin Sod/Tazobactam Sod 4.5 gram in 100 mls @ 100 mls/hr 11/21/23 18:00 11/22/23 10:08
Zosyn IV 100 mls
Q6H SOULEYMANE Administration
Vancomycin HCl 1,250 mg/ 275 mls @ 183.33 mls/hr 11/22/23 10:00
Sodium Chloride IV 11/22/23 11:29
ONCE ONE
Norepinephrine Bitartrate 4 mg in 250 mls @ 0 mls/hr 11/22/23 11:00
Levophed IV
PER PROTOCOL SOULEYMANE
Protocol
Per Protocol
Loratadine 10 mg 11/21/23 20:22
Loratadine 10 Mg Tablet PO 12/19/23 20:21
DAILYPRN PRN
allergies
Ambrisentan [ 0 mg 11/22/23 08:00
Letairis] 5 Mg PO 12/20/23 07:59
Tablet - 1 Tablet ( DAILY SOULEYMANE
5mg) Po Daily
Sildenafil Citrate 10 mg 11/21/23 22:00 11/22/23 08:22
Sildenafil 20 Mg Tablet PO 12/19/23 21:59 10 mg
TID SOULEYMANE Administration
Sodium Chloride 0 flush 11/21/23 19:00
Sodium Chloride 0.9% (Flush) Syringe IV 12/19/23 18:59
PER PROTOCOL SOULEYMANE
Tamsulosin HCl 0.4 mg 11/22/23 18:00
Tamsulosin 0.4 Mg Capsule PO 12/20/23 17:59
QPM SOULEYMANE
Review of Systems
-
Continues to complain of fatigue but improved. No localizing symptoms. 12 point review of systems fails to elicit additional complaints other than those complaints noted in the HPI.
Physical Exam
-
Physical Exam
General: Well Developed, Well Nourished and No Apparent Distress
HEENT: NormoCephalic, Moist mucous membranes and Atraumatic
Respiratory: Clear
Cardiac: S1/S2 and Regular Rhythm; No Murmur or Rub
GI: Soft, Non Tender, Non Distended and Normal Bowel Sounds; No Organomegaly
Musculoskeletal: No Clubbing, No Cyanosis and No Edema
Skin: No Rash areas of ecchymosis noted
Neuro: Nonfocal/grossly intact
Labs
Lab Results
WBC 4.5 10^3/uL (4.8-10.8) L 11/22/23 05:11
RBC 2.41 10^6/uL (4.70-6.10) L 11/22/23 05:11
Hgb 7.8 g/dL (13.0-18.0) L 11/22/23 05:11
Hct 23.9 % (39.0-52.0) L 11/22/23 05:11
MCV 99.2 fL (80.0-94.0) H 11/22/23 05:11
MCH 32.4 pg (27.0-31.0) H 11/22/23 05:11
MCHC 32.6 g/dL (33.0-37.0) L 11/22/23 05:11
RDW 20.8 % (11.5-14.5) H 11/22/23 05:11
Plt Count 138 10^3/uL (130-400) 11/22/23 05:11
MPV 11.1 fL (7.4-10.4) H 11/22/23 05:11
Abs Immat Gran (auto) 0.3 10^3/uL (0-0.05) H 11/22/23 05:11
Absolute Neuts (auto) 3.2 10^3/uL (1.4-6.5) 11/22/23 05:11
Absolute Lymphs (auto) 0.5 10^3/uL (1.2-3.4) L 11/22/23 05:11
Absolute Monos (auto) 0.4 10^3/uL (0.1-0.6) 11/22/23 05:11
Absolute Eos (auto) 0.1 10^3/uL (0-0.7) 11/22/23 05:11
Absolute Basos (auto) 0.0 10^3/uL (0-0.2) 11/22/23 05:11
Immature Gran % 6.3 % (0-0.5) H 11/22/23 05:11
Neutrophils % 70.7 % (42.2-75.2) 11/22/23 05:11
Lymphocytes % 11.4 % (20.5-51.1) L 11/22/23 05:11
Monocytes % 9.8 % (1.7-9.3) H 11/22/23 05:11
Eosinophils % 1.6 % (0-6) 11/22/23 05:11
Basophils % 0.2 % (0-2) 11/22/23 05:11
Creatinine 1.4 mg/dL (0.7-1.3) H 11/22/23 06:34
Vital Signs
Vital Signs
Temp Pulse Resp BP Pulse Ox
99.1 F 107 32 90/51 92
11/22/23 07:32 11/22/23 10:02 11/22/23 10:02 11/22/23 10:02 11/22/23 10:54
[2023-11-22] MEDS: VANCOCIN 275 MG IV (11:10)
[2023-11-22] MEDS: LEVOPHED 250 IV (11:24)
--- NOTE | 2023-11-22 11:31 | CON.CRS ---
Consultation
-
Date/Time Consultation Requested: 11/22/2023
Date/Time Consultation Performed: 11/22/2023
Requesting Provider: Neel Martins MD
Performing Provider: Levy Miranda MD
Reason for Consultation: diverticulitis
Medical History
-
Chief Complaint: confusion/weakness
History of Present Illness:
73-year-old male, with a past medical history of multiple myeloma (s/p stem cell transplant, on Carfilzomib, pomalidomide managed by Dr. Lewis), prostate cancer s/p RT and prostatectomy in 2020, HTN, HLD, CAD, DM, pulmonary hypertension, presents
to the ER on 11/21/2023 complaining of confusion and weakness. The patient's symptoms started 2 days ago after his discharge from [facility]. He underwent a 10-day admission at [facility] for multiple myeloma treatment with Talvey which was completed 5 days
ago. While at [facility], he had a CT this previous Sunday which showed diverticulosis and he was started on abx. He was seen yesterday by his crop farm helper Dr. Lal for a cardiology appointment. Due to hypotension and confusion she referred him to
the ER. Prior to his admission to [facility], he was admitted to [facility] on 11/03/2023 through 11/06/2023 due to sepsis from left lower lobe pneumonia and Pseudomonas bacteremia. At discharge he was on Levaquin and Flagyl which was completed
on November 12, 2023. He also been admitted at [facility] on 09/09/2023 through 09/14/2023. During that admission he was found to have a ascending colon diverticulitis and possible mid sigmoid colon diverticulitis. At that time he was advised to
continue on a low residue diet for a few weeks as well as outpatient antibiotics. He had a surveillance colonoscopy with Dr. Murillo scheduled on 09/28/2023 but was canceled. His last colonoscopy was in [address] Murillo which showed one tubular
adenoma, diverticulitis and internal hemorrhoids.
He underwent a CT of the chest abdomen and pelvis yesterday due to sepsis. Findings included acute diverticulitis of the mid sigmoid colon which has progressed and resolving diverticulitis of the hepatic flexure. There is a new 2.7 cm
rim-enhancing subcapsular right hepatic lobe cystic lesion highly suggestive of an abscess. There are suggestive of splenic infarct which is new from his prior scan from 09/09/2023. He also has small left pleural effusion with left lower lobe
atelectasis and or pneumonia which is slightly progressed and grossly stable scattered small bilateral upper lung zone nodules. Differential includes septic emboli versus metastasis. On admission his WBC is 3.8 and 4.5 today. He remains
hypotensive in the 80s to 90s/ 50s. His pulse ranges from 90s to 105. Tmax was last night at 101.0. He was started on IV Vanco and Zosyn and is requiring a megan gtt.
Past Medical History
Past Medical History: Cancer (Multiple myeloma, Prostate cancer), HTN and Other (type 2 diabetes mellitus, B12 deficiency, diastolic congestive heart failure, pulmonary arterial hypertension, chronic right bundle branch block, mild aortic stenosis,
obesity, CKD, B12 deficiency, diverticulitis, sciatica, insomnia, hepatic steatosis, renal stones, hx of urosepsis )
Past Surgical History: Urological (Prostate cancer surgery ) and Other (Stem cell harvest 2021, prostate cancer status post prostatectomy and radiation, cataracts)
Social History
Tobacco: Former Smoker (Quit 40 years ago)
Alcohol: None
Drug: None
Family History
Family History: Other (mother had diverticulitis)
Allergies / Home Medications
Allergy/AdvReac Type Severity Reaction Status Date / Time
bacitracin Allergy redness Verified 09/09/23 10:19
[From Neosporin
([id number])]
neomycin Allergy redness Verified 09/09/23 10:19
[From Neosporin
([id number])]
polymyxin B Allergy redness Verified 09/09/23 10:19
[From Neosporin
([id number])]
�Medication �Instructions �Recorded �Confirmed �Type
red yeast rice 600 mg tablet 1,200 mg PO DAILY Supplement 11/13/15 11/21/23 History
acyclovir 400 mg tablet 400 mg PO BID Infection 10/22/22 11/21/23 History
coQ10 (ubiquinol) 100 mg capsule 100 mg PO DAILY Supplement 10/22/22 11/21/23 History
cyanocobalamin (vitamin B-12) 1,000 mcg PO DAILY Supplement 10/22/22 11/21/23 History
1,000 mcg tablet
denosumab 120 mg/1.7 mL (70 mg/mL) 120 mg SC [id number] Cancer 10/22/22 11/21/23 History
subcutaneous solution (Xgeva)
loratadine 10 mg tablet (Claritin) 10 mg PO DAILY PRN allergies 10/22/22 11/21/23 History
tamsulosin 0.4 mg capsule (Flomax) 0.4 mg PO QPM Urinary issue 10/22/22 11/21/23 History
zolpidem 5 mg tablet (Ambien) 5 mg PO HS PRN insomnia 01/15/23 11/21/23 History
furosemide 80 mg tablet (Lasix) 80 mg PO DAILY Fluid 11/04/23 11/21/23 History
Retention/Swelling
ambrisentan 5 mg tablet (Letairis) 5 mg PO DAILY Endothelin Receptor 11/21/23 11/21/23 History
Antag
amoxicillin 875 mg-potassium 1 tab PO BID Infection 11/21/23 11/21/23 History
clavulanate 125 mg tablet
guaifenesin 600 mg tablet, 600 mg PO BID Congestion 11/21/23 11/21/23 History
extended release 12 hr (Mucinex)
sildenafil (pulm.hypertension) 20 20 mg PO TID pulmonary hypertension 11/21/23 11/21/23 History
mg tablet
sulfamethoxazole 800 1 tab PO MOWEFR@0800 prophylaxis 11/21/23 11/21/23 History
mg-trimethoprim 160 mg tablet
talquetamab-tgvs 1 dose SC Q2W multiple myeloma 11/21/23 11/21/23 History
cholecalciferol (vitamin D3) 25 25 mcg PO DAILY Supplement 11/22/23 11/22/23 History
mcg (1,000 unit) tablet (Vitamin
D3)
Review of Systems
-
History Source: Patient
All other systems: Negative unless noted
Constitutional: Other (weakness)
A 10 point review of systems was completed, and was negative except as per HPI.
Physical Exam
Vital Signs
Temp 99.1 F 11/22/23 07:32
Pulse 107 11/22/23 10:02
Resp Rate 32 11/22/23 10:02
Blood pressure 90/51 11/22/23 10:02
SaO2 92 11/22/23 10:54
11/21/23 11/22/23 11/23/23
06:59 06:59 06:59
Actual Weight 89.8 kg
Body Mass Index (BMI) 31.0
Lab Results / Allergies
11/22/23 05:11
11/22/23 06:34
WBC 4.5 10^3/uL (4.8-10.8) L 11/22/23 05:11
Hgb 7.8 g/dL (13.0-18.0) L 11/22/23 05:11
Hct 23.9 % (39.0-52.0) L 11/22/23 05:11
Plt Count 138 10^3/uL (130-400) 11/22/23 05:11
Abs Immat Gran (auto) 0.3 10^3/uL (0-0.05) H 11/22/23 05:11
Neutrophils % 70.7 % (42.2-75.2) 11/22/23 05:11
Allergy/AdvReac Type Severity Reaction Status Date / Time
bacitracin Allergy redness Verified 09/09/23 10:19
[From Neosporin
([id number])]
neomycin Allergy redness Verified 09/09/23 10:19
[From Neosporin
([id number])]
polymyxin B Allergy redness Verified 09/09/23 10:19
[From Neosporin
([id number])]
Physical Exam
General: Well Developed, Well Nourished and No Apparent Distress
GI: Soft, Non Tender and Non Distended
Skin: Warm and Dry
Neuro: AO x 3
Data Reviewed
-
CT Scan: Image Personally Visualized and interpreted, Report Reviewed by me, Discussed with Physician and Discussed with Patient
Labs: Labs Reviewed by me, Discussed with Physician and Discussed with Patient
Old Records: Reviewed
Assessment / Plan
-
Assessment: 73yo male with multiple myeloma s/p immunotherapy at [facility] with now sepsis and sigmoid diverticulitis noted on CT scan
Plan:
Discussed CT with Dr. Valencia in IR. In comparing with prior films, diverticulosis appears chronic appearing and he isn't quite convinced this is diverticulitis. Liver abscess also is present on films from a year ago and he believes this may be due
to a hemangioma. Patient is non-tender on exam. No plans for surgery at this time. Discussed with patient. Will follow.
[2023-11-22] MEDS: DECADRON 52.5 MG IV ×2 (13:22→17:35)
--- NOTE | 2023-11-22 13:26 | PTCARENOTE ---
Patient getting EEG at bedside.
--- NOTE | 2023-11-22 14:39 | CON.NEURO4 ---
Consultation - Neurology 4
-
CONSULTING PHYSICIAN: Harjinder Christianson
REFERRING PHYSICIAN: Hospitalist/Oncology
DICTATED BY: Harjinder Christianson
DATE/TIME OF REQUEST: 11/22/23
DATE/TIME OF CONSULTATION: 11/22/23
Reason for Consultation: Encephalopathy, concern for neurotoxicity of Talvey for multiple myeloma
History of Present Illness:
The patient is a 73-year-old man with a past medical history of refractory multiple myeloma, heart failure preserved ejection fraction, pulmonary hypertension, type 2 diabetes mellitus and CKD who presents to the hospital due to generalized
weakness and fatigue along with confusion which seem to start around 11/18.
He had had a recent hospitalization here for diverticulitis with abscess and was treated with antibiotics. He had recently completed a course of Talvey for treatment of multiple myeloma, follows with Dr. Lewis here as well as Dr. Aleman at
[facility].
Patient could not remember his visit with his interior design teacher Amisha and she sent him to the emergency room for evaluation. Family had seen that he seemed disoriented along with memory loss. There did not seem to be any unilateral weakness or
overt aphasia. He had not complained of headache or neck stiffness.
Family relates that the patient has not had any history of neurologic symptoms in the past no history of TIA or stroke or involvement of the brain with multiple myeloma. He had developed confusion with sepsis due to urinary tract infection many
years ago. He used to take Ambient for insomnia but no longer does, at this time not on any HOUSE PAINTER HELPER acting medications.
Patient did have one fever to 101F, has been started on Vancomycin and Zosyn.
Patient was seen by Dr. Gonsalez of oncology and was started on IV steroids due to concern for neurologic toxicity and Cytokine release syndrome.
Past Medical History: Multiple myeloma, CKD, HFpEF, Pulmonary hypertension, Type 2 diabetes mellitus, prostate cancer, nephrolithiasis, di verticulitis
Surgical History: Prostatectomy
Family History: Non-contributory
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
Review of Symptoms:
Patient denies any fever, headache, chest pain, shortness of breath, GI or symptoms.
Physical Exam:
Middle elderly age man in no acute distress has EEG leads on the head no signs of meningismus oropharynx is clear eyes are clear, abdomen soft nontender no lower extremity edema or rashes are seen
Neurologic Examination:
Mental status shows an awake and alert patient, minimal drowsiness, has a sense of humor and does joke some. He is able to name all of his family including daughters and . He does have decreased memory recall to recent events. He can obey
three-step command well. No evidence of aphasia with fluent speech comprehension is intact repetition is intact naming intact. He has some difficulty with more complex commands for example when asked to name the last months of the year he says
July. He has difficulty with calculations. He can name the current president and previous president. He is aware of current events with [place] in [place] complex as well as war with [place] and [place].
Cranial nerve examination shows pupils 3 mm equal round and reactive to light bilaterally visual mortensen intact confrontation bilaterally resting gaze midline extraocular's are full smile is symmetric no dysarthria tongue is midline
Motor examination shows no pronator drift normal bulk and tone no abnormal movements or parkinsonism no fix, power 5/5 for shoulder abduction arm flexion hip flexion bilaterally
Intact grossly to light touch in upper and lower extremity
Reflexes unobtainable throughout
Normal finger-nose testing bilateral
Gait examination deferred
Impressions
1. Encephalopathy. High suspicion for neurotoxicity related to Talvey. Agree seems grade 1, has confusion but not showing significantly decreased level of consciousness. No overt seizures thus far. Encephalopathy due to sepsis certainly is
possible. Neurologic examination not showing focal neurologic deficits.
2. Multiple myeloma
3. History of recent diverticulitis
4. CKD
5. Diabetes mellitus
6. Pulmonary hypertension
7. History of heart failure preserved ejection fraction
Recommendations:
1. Check EEG
2. If EEG study does not show significant epileptiform discharges or other severe abnormalities then would lean toward monitoring off prophylactic seizure medication for time being. Follow mental status and repeat an EEG tomorrow to reassess.
3. No strong indication for CT head felt at this time with clear reasons for confusion, nonfocal neurologic examination not supportive of stroke or structural lesion. If seizure or worsening mental status occurs would image with CT head non
contrast at first and then brain MRI without contrast
4. Neurologic checks
5. Notify us if seizure activity
6. Minimize sedating medications
7. Follow cultures, WBC's, fevers, on antibiotics currently
8. Continue the IV steroids
9. I placed call to his oncologist at [facility] to discuss
Will follow
Discussed patient care with: Patient and his family. Hospitalist and oncology over [employer].
[2023-11-22] MEDS: NON-FORMULARY ITEM 5 MG PO (14:46)
--- NOTE | 2023-11-22 14:56 | W.PN.UPDATE ---
Update Note
Progress Note Update
Neuro consulted per D/W Heme
EEG with No Sz, so Hold Keppra
Repeat EEG in am
If worse needs an MRI Brain
Also [facility] was contacted by colorectal, the lesion in liver likely hemangioma not abscess.
No Drainage
Await Blood CX
case discussed with Ruth Elder Wong, [place], Allred
[2023-11-22] MEDS: TYLENOL 650 MG PO (16:17)
--- NOTE | 2023-11-22 16:20 | EEG.RPT ---
Electroencephalogram Report
Recording
Date of EE11/22/23
Type of EEG: Routine
Length of EEG recordin mins
Done with Video Recording: Yes
Patient Status: Inpatient
Recording Conditions: Awake
Hyperventilation Performed: No
Photic Stimulation Performed: Yes
Report
METHODS
A 21 channel digitized electroencephalogram was performed at [facility]. The 10/20 international system of electrode placement was used. In addition to EEG, the patient was monitored for EKG. The duration of the recording was 62 minutes.
BACKGROUND
During the awake state, with the eyes closed, the background consisted of a normal amplitude, 9-10 Hertz posterior reactive rhythm that attenuated appropriately with eye opening. Beta activity was distributed diffusely with an anterior predominance.
There was a normal anterior-posterior voltage gradient. With eye opening the background activity changed to a low voltage mixture of alpha, beta, and occasional theta range frequencies. There were no significant asymmetries of background activity
noted.
PHOTIC STIMULATION
Photic stimulation using a step-lowe increase in photic frequency varying from 1-31 Hertz resulted in no driving responses but no appearance of abnormal activity.
ABNORMAL EEG ACTIVITY
None
CLINICAL EVENTS
None
INTERPRETATION AND CLINICAL CORRELATION
This EEG is normal during the awake state as well as during the activation procedures of photic stimulation. The study was at times obscured by muscle artifact. No seizures were noted during the recording. A normal EEG, in itself, does not rule out
a diagnosis of epilepsy. If clinical suspicion for seizure persists, a sleep-deprived and/or prolonged recording may be warranted.
[2023-11-22] MEDS: FLOMAX 0.400000000000000022 MG PO (17:35)
[2023-11-22 18:33] LABS: Glucose - Point of Care 535 mg/dl (70-99)
--- NOTE | 2023-11-22 18:37 | PTCARENOTE ---
Patient and family requesting that patient have blood sugar checks premeal. She reports while he was at [facility] and last time he was here at , he was having it checked. Also, now that he is getting steroids, pt's reports that his blood sugar
will be high. TT to , order for accuchecks AC&HS. Pt had already eaten dinner when family asked for blood sugar checks. I advised patient and family it will likely be high currently but they insisted he still have it checked at the present
moment. Accucheck read HIGH. Ordered STAT blood glucose and sent to lab. Awaiting results.
[2023-11-22 18:57] LABS: Glucose 459 mg/dl (70-99)
[2023-11-22] MEDS: NOVOLOG FLEXPEN-LOW RESISTANCE SC (19:47)
[2023-11-22] MEDS: NOVOLOG FLEXPEN 6 UNITS SC (19:47)
[2023-11-22] MEDS: REVATIO 20 MG PO (21:39)
[2023-11-22 22:06] LABS: Glucose - Point of Care 490 mg/dl (70-99)
[2023-11-22 22:16] LABS: Glucose 454 mg/dl (70-99)
[2023-11-22] MEDS: NOVOLOG FLEXPEN 10 UNITS SC (22:34)
[2023-11-23] VITALS (47 sets, daily range): BP systolic 75–118; BP diastolic 46–73; PULSE 83–89; O2SAT 98; BMI 31.0
[2023-11-23] MEDS: DECADRON 52.5 MG IV ×5 (00:15→23:24)
--- NOTE | 2023-11-23 00:44 | PTCARENOTE ---
Received call from Pt daughter concerning Pt's recent fevers and diagnoses, Neurotoxicity and Cytokine Release Syndrome. Reviewed Oncology note with daughter that states Pt was started on q6 hr steroid treatment (Decadron 10mg) for Neurotoxicity
and CRS. Pt's daughter stated that during Pt's recent visit at [facility] for treatment of Multiple Mylenoma, the family was educated on followup treatment in case Pt developed Cytokinase Release Syndrome. Pt's daughter was concerned that he was not
receiving the correct treatment and insisted that this nurse contact the On-call Oncology tonight to find out. [place] text sent to On-call Oncology to address family concerns. Awaiting response. Overnight CANDY BUTCHER made aware - Will follow up with
morning RN.
[2023-11-23 00:52] LABS: Glucose - Point of Care 416 mg/dl (70-99)
[2023-11-23 01:11] LABS: Glucose 396 mg/dl (70-99)
[2023-11-23] MEDS: NOVOLOG FLEXPEN 15 UNITS SC (01:59)
[2023-11-23 03:33] LABS: Glucose - Point of Care 369 mg/dl (70-99)
[2023-11-23 03:34] LABS: % Basophils 0.2 % (0-2); % Eosinophils 0.2 % (0-6); % Immature Granulocytes 1.8 % (0-0.5); % Lymphocytes 9.7 % (20.5-51.1); % Monocytes 3.2 % (1.7-9.3); % Neutrophils 84.9 % (42.2-75.2); Absolute Immature Granulocytes 0.1 10^3/uL (0-0.05); Absolute Lymphocytes 0.4 10^3/uL (1.2-3.4); Absolute Monocytes 0.1 10^3/uL (0.1-0.6); Absolute Neutrophils 3.7 10^3/uL (1.4-6.5); Hematocrit 23.4 % (39.0-52.0); Hemoglobin 7.7 g/dL (13.0-18.0); Mean Corp Hgb Conc. 32.9 g/dL (33.0-37.0); Mean Corpuscular Hgb 32.9 pg (27.0-31.0); Mean Platelet Volume 10.8 fL (7.4-10.4); Nucleated Red Blood Cells % 0 % (-); Platelet Count 117 10^3/uL (130-400); Red Blood Cell Count 2.34 10^6/uL (4.70-6.10); Red Cell Dist. Width 20.6 % (11.5-14.5); White Blood Cell Count 4.4 10^3/uL (4.8-10.8)
[2023-11-23] MEDS: ZOSYN 100 IV ×2 (03:49→10:06)
[2023-11-23 03:55] LABS: ALT (SGPT) 22 U/L (0-50); AST (SGOT) 16 U/L (17-59); Albumin 2.6 g/dl (3.5-5.0); Alkaline Phosphatase 134 U/L (38-126); Blood Urea Nitrogen 38 mg/dl (9-20); Calcium 7.2 mg/dl (8.4-10.2); Carbon Dioxide 22 mmol/L (22-30); Chloride 111 mmol/L (98-107); Estimated Creatinine Clearance 49 ml/min; Glucose 326 mg/dl (70-99); Magnesium 2.3 mg/dl (1.6-2.3); Potassium 4.2 mmol/L (3.5-5.1); Sodium 137 mmol/L (135-145); Total Bilirubin 0.5 mg/dl (0.2-1.3); Total Protein 8.8 g/dl (6.3-8.2); eGFR 52.74
[2023-11-23 03:59] LABS: Vancomycin Random 15.3 ug/ml
[2023-11-23] MEDS: NOVOLOG FLEXPEN 20 UNITS SC (04:18)
[2023-11-23 07:41] LABS: Glucose - Point of Care 268 mg/dl (70-99)
--- NOTE | 2023-11-23 08:06 | PHA.VAN.FU ---
Vancomycin Assessment / Plan
- Assessment
Renal Function: Stable
WBC's are: Stable
In the past 24 hrs, patient has been: Afebrile
Concomitant Antimicrobials: piperacillin/tazobactam
- Assessment - Therapeutic Drug Monitoring
Random Level: 15.3 - drawn ~16H after previous dose of 1250mg
- Dosing Plan
Dosing by Level: Re-dose today (Vanc 1250mg)
- Monitoring Plan
Random Level: 11/23 0600
- Follow Up
Pharmacy will continue to follow.
Vancomycin Follow UP
- -
Patient Age: 73
Patient Sex: Male
Vancomycin Day #: 3
Indication: Pulmonary/Respiratory
Requesting Provider: Dr. Gipson / [facility]
Pertinent Antimicrobial Allergies:
bacitracin / neomycin /polymyxin B [From Neosporin] - redness
Height / Weight:
Height 5 ft 7 in
Actual Weight 89.7 kg
Pertinent Past Medical History: BMI ~31, Multiple myeloma, CKD, DM2
- Vital Signs / Lab Results
Temp Pulse Resp BP Pulse Ox
98.7 F 78 18 97/57 93
11/23/23 03:31 11/23/23 07:30 11/23/23 07:30 11/23/23 07:30 11/23/23 02:30
Lab Results - Hematology
11/21/23 11/22/23 11/23/23
15:30 05:11 03:24
WBC 3.8 L 4.5 L 4.4 L
Lab Results - Chemistry
11/21/23 11/22/23 11/22/23
15:30 05:11 06:34
BUN 38 H Cancelled 33 H
Creatinine 1.5 H Cancelled 1.4 H
Estimated Creat Clear Cancelled 49
Albumin 2.8 L Cancelled 2.5 L
11/23/23
03:24
BUN 38 H
Creatinine 1.4 H
Estimated Creat Clear 49
Albumin 2.6 L
11/21/23
15:30
Lactic Acid 1.7
Microbiology Results
11/22/23 12:51 Respiratory Culture - Final
Sputum Gram Stain - Final
11/21/23 15:30 Blood Culture - Preliminary
Blood/Venous No Growth in 24 hours- Final report to follow
11/21/23 15:37 Blood Culture - Preliminary
Blood/Venous No Growth in 24 hours- Final report to follow
11/21/23 16:59 Urine Culture - Final
Urine NO GROWTH
11/21/23 22:05 Nasal Screen MRSA (PCR) - Final
Nose Staph aureus MRSA
11/21/23 15:36 Influenza Types A & B ([facility]EN) - Final
Nasal Swab Negative for Influenza A & B, NAAT
Negative results must be combined with clinical observations
and patient history.
Nucleic Acid Amplification test (NAAT)performed on the
[employer] platform.
Therapeutic Drug Monitoring
Random Vancomycin 15.3 ug/ml 11/23/23 03:24
[2023-11-23] MEDS: NOVOLOG FLEXPEN-LOW RESISTANCE 3 UNITS SC (08:13)
[2023-11-23] MEDS: VITAMIN D3 (cholecalciferol) 25 MCG PO (08:13)
[2023-11-23] MEDS: VITAMIN B-12 1000 MCG PO (08:13)
[2023-11-23] MEDS: MUCINEX 600 MG PO ×2 (08:17→20:40)
[2023-11-23] MEDS: ZOVIRAX 400 MG PO ×2 (08:17→20:41)
[2023-11-23] MEDS: REVATIO 20 MG PO ×3 (08:18→21:56)
[2023-11-23] MEDS: HEPARIN SC (08:18)
[2023-11-23] MEDS: NON-FORMULARY ITEM 5 MG PO (08:18)
--- NOTE | 2023-11-23 08:31 | W.PN.HOSP.TC ---
Today's Communication/Plan
-
PT/OT
defer to onc/ID starting ACTEMRA and BACTRIM
cont vanco/zosyn
wean levophed
Assessment / Plan
Assessment / Plan
73-year-old male with multiple myeloma had a treatment at [facility] and was discharged on 11/18/2023. He got Talvey at increment doses. Once he got home he was sleeping a lot. He saw Dr. Lal in the office and was referred to the ER because of
confusion and hypotension. Patient denies any dysuria, abdominal pain, diarrhea, cough, shortness of breath, chest pain, fever. During the admission at [facility]?, he was given IV fluids and developed pulmonary edema and needed to be diuresed. He had
a perisplenic hematoma where he had a fall while going to [facility] prior to admission to [facility]. That is resolving. On the CT patient was found to have severe sigmoid diverticulitis with suspected mural abscess without symptoms. He was started on
Augmentin and was discharged home. Plan was to repeat CAT scan in 10 days
Hypotension--likely secondary to septic shock (likely not mounting much symptoms of infection secondary to his low immunity)--possibly due to diverticulitis (being treated prior to admission)--blood cultures negative, MRSA screen positive--no
abscess on CT scan as determined by IRAD/colorectal, the lesion in liver likely hemangioma not abscess so no drainage needed--continues on levophed to keep MAP > 65--lasix on hold---Lung lesions septic emboli versus metastasis--cont vanco/zosyn for
now--apprec ID, CRS, onc, IRAD
TME likely secondary infection plus neurotoxicity from chemo (Talvey)--apprec onc, neuro--no seizures on EEG--consider brain imaging
Multiple myeloma-- diagnosed in November 2020--He follows with Dr. Aleman at [facility] and also with Dr. Isa Lewis--(He was maintained on Carfilzomib, Pomalidomide, and dexamethasone)--When he developed pulmonary artery hypertension he was switched to
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
currently--PLUS, there is some discussion about being on ACTEMRA for cytokine storm prevention--will defer to ID, onc
Acute hypoxic respiratory insufficiency--secondary to pneumonia versus atelectasis--IS--Continue antibiotics--CT scan chest/ab/pelvis shows Small left pleural effusion with associated left lower lobe atelectasis and/or pneumonia, slightly progressed
and Grossly stable scattered small bilateral upper lung zone nodules--Differential includes septic emboli versus metastases.
Hyponatremia--resolved
Pancytopenia secondary to multiple myeloma--noted
Chronic heart failure Combined HFPEF and HFREF--on Lasix 80 mg daily as Op--Hold due to Hypotension
Type 2 diabetes--Diet controlled now--blood sugars very elevated with steroids--will need adjustments--steroids could also be contributing to TME (although TME better and steroids still given)
Pulmonary hypertension WHO Group 5 - on Ambrisentan and sildenafil
SCds for DVT Prophylaxis
Full CODE
updated and daughter.....11/22
other PMH:
Doubt ANAI--creat 1.4 (likely baseline)-- CKD since creat up since Aug 2023
Mild aortic stenosis
Essential Hypertension-Not on meds now
Dyslipidemia /Atherosclerosis-Red Yeast Rice
Right bundle branch block
Hepatic steatosis
History of prostate cancer status post prostatectomy and radiation-follows with Dr. Escalona--technically cleared with very low PSA--Continue Flomax
Pulmonary nodules
Vitamin B12 deficiency-on supplement
Diverticulosis
Hypoalbuminemia
Sciatica
Insomnia-continue Ambien
Ex-smoker

CT of the chest abdomen pelvis-acute diverticulitis of the mid sigmoid colon progressed. Resolving diverticulitis of the hepatic flexure. New 2.7 cm rim-enhancing subcapsular right hepatic lobe cystic lesion suggestive of an abscess. Findings
suggestive of splenic infarct. Small left pleural effusion associated left lower lobe atelectasis and/or pneumonia progress. Scattered small bilateral upper lobe zone nodules septic emboli versus metastasis.
Echo 11/05/2023-mildly reduced LV systolic function. Global hypokinesis. Paradoxical septal motion consistent with left bundle branch block. Flattened septum in systole consistent with RV pressure overload. Ejection fraction 40 to 45%. Pulmonary
pressure 30-35 mm Hg.
Anticipated Discharge: > 48 hours
Subjective/Interval History
-
Date of Service: November 23, 2023
pt seems more like himself but very weak
Objective Data
-
Labs:
Laboratory Results
11/22/23 11/23/23 11/23/23
21:53 00:42 03:24
WBC 4.4 L
Hgb 7.7 L
Hct 23.4 L
Plt Count 117 L
Sodium 137
Potassium 4.2
Chloride 111 H
Carbon Dioxide 22
BUN 38 H
Creatinine 1.4 H
Glucose 454 H* 396 H 326 H
Calcium 7.2 L
Total Bilirubin 0.5
AST 16 L
ALT 22
Alkaline Phosphatase 134 H
Vital Signs:
max temp for 24 hours
11/22/23
16:24
Temp 100.3 F
Vital Signs
Temp Pulse Resp BP Pulse Ox
97.9 F 78 18 97/57 93
11/23/23 07:25 11/23/23 07:30 11/23/23 07:30 11/23/23 07:30 11/23/23 02:30
I&O
11/22/23 11/23/23 11/24/23
06:59 06:59 06:59
Intake Total 100 / 100 1135 / 1135
Output Total 550 / 550 650 / 650
Balance -450 / -450 485 / 485
Review of Systems
-
All other systems: Reviewed and negative
Physical Exam
-
General: Well Developed, Well Nourished, No Apparent Distress and Other (appears weak)
HEENT: Normocephalic, Atraumatic and Oxygen
Respiratory: Clear to Auscultation; Negative Wheezes, Rales, Rhonchi or Crackles
Cardiac: Regular Rhythm and S1/S2; Negative Murmur
GI: Soft, Nontender, Nondistended and Normal Bowel Sounds
Musculoskeletal: No Clubbing, No Cyanosis and No Edema
Skin: Warm
Neuro: Awake and Alert
Psych: Calm
--- NOTE | 2023-11-23 09:00 | W.PN.CRS1 ---
Today's Communication / Plan
-
Continue regular diet; care per primary
CRS to sign off; please call for questions/concerns
Assessment/Plan
-
73-year-old male with PMH of multiple myeloma (recent admission at [place] for 10 days for inpatient treatment of MM, admission C/B fall with splenic hematoma and diagnosis of acute diverticulitis with intramural abscess on 11/18, discharged with
Augmentin x 10 days), CHF, RBBB, pulmonary hypertension, , HTN, CKD stage III, DM, prostate cancer s/p resection and RT, who presents on 11/20 with weakness and fatigue associated with AMS; Tmax yesterday of 101.0, repeat CT showing sigmoid
diverticulitis, cystic liver lesion c/f abscess, resolved hepatic flexure diverticulitis and concern for splenic infarcts, stable splenic hematoma; upon review with radiology, diverticulitis this is very mild, no intramural abscess identified and
liver cyst is hemangioma
� No abdominal pain and tolerating diet; more likely severe diverticulosis versus very mild case of diverticulitis; no surgical intervention indicated
� Continue regular diet
� Continue IV Zosyn and vancomycin; would treat diverticulitis for total of 14 days
�Continue care per hospitalist and consultants
� CRS to sign off; please call for questions or concerns
Subjective Data
Subjective Data
Date of Service: November 23, 2023
No overnight events.
Denies abdominal pain
Denies nausea/vomiting. Tolerating regular diet.
+flatus +BMs +voiding
Objective Data
-
Vital Signs
Temp Pulse Resp BP Pulse Ox
97.9 F 78 18 97/57 93
11/23/23 07:25 11/23/23 07:30 11/23/23 07:30 11/23/23 07:30 11/23/23 02:30
Intake & Output
11/22/23 11/23/23 11/24/23
06:59 06:59 06:59
Intake Total 100 / 100 1135 / 1135
Output Total 550 / 550 650 / 650
Balance -450 / -450 485 / 485
Intake:
Oral fluids 660 / 660
IV piggybacks 475 / 475
Output:
Urine, Voided 550 / 550 650 / 650
Other:
Number of approximated MODERATE 1
amounts of urine
Number of approximated LARGE 1
amounts of urine
How many times incontinent 1 1
MODERATE amount urine
Lab Results
11/23/23 03:24
11/23/23 03:24
Physical Exam
-
General: No Acute Distress and AOx3
HEENT: Grossly Normal
Abdomen: Soft, Non Distended, Non Tender, No Guarding and No Rebound
Skin: Warm and Dry
[2023-11-23 09:38] LABS: Glycohemoglobin (HgbA1c) 7.3 % (4.0-5.6)
[2023-11-23] MEDS: LEVOPHED 250 IV (10:06)
--- NOTE | 2023-11-23 10:24 | W.PN.ID1 ---
Date of Service
Date of Service: November 23, 2023
Today's Communication
Transition to Augmentin 875mg po bid through 11/29/23.
Assessment / Plan
# Progression of sigmoid diverticulitis compared to 09/2023 - pt wo abdominal sxs
Diverticulitis mild, per colorectal
# Liver lesion = old hemangioma, not abscess, per radiology and colorectal.
# Fever x 1 - resolved
# MRSA colonization
- blood cx's negative to date.
- DC Vanco/Zosyn
- Transition to Augmentin 875mg po bid through 11/29/23.
# Splenic infarct
-Suspect due to recent fall on to right side in October 2023
- 11/[address] showed travon-splenic, subcapsular hematoma.
11/[address]: resolving splenic hematoma with evolving infarct
- 11/12 outside blood cx's negative
-11/12 outside TTE negative
# Pulmonary nodules, some cavitary are not new
- Suspect metastasis
# Change in mental status due to ICANS from Talvey per Hem/onc
- improving on steroid.
# Refractory multiple myeloma, recent new regimen Talvey
# Recurrent prostate ca
# s/p recent Pseudomonas, Eubacterium bacteremia
source from abrasions after fall
completed 10 days of antibiotics on 11/11
#Additional Past Medical History:
Refractory Multiple myeloma
DM type 2
Hypertension
Congestive heart failure slight reduced EF
Pulmonary hypertension
Nephrolithiasis
CKD3b
Pulmonary nodules
Diverticulitis
Fatty liver
hx Patt 9 prostate cancer s/p prostatectomy/XRT (2020) with recurrence by PET
Chief Complaint
-: Fever
Subjective / Review of Systems
Feels much improved on steroid. Mental status better.
Vital Signs / Physical Exam
Vital Signs
Vital Signs
Temp Pulse Resp BP Pulse Ox
97.9 F 78 18 97/57 93
11/23/23 07:25 11/23/23 07:30 11/23/23 07:30 11/23/23 07:30 11/23/23 02:30
Physical Exam
Constitutional: No Acute Distress and Comfortable
Pulmonary: Coarse (left lung)
Gastrointestinal: Soft, Non Tender and Non Distended
Extremities: Edema
Neurological: AO x 3
Objective Data
Lab Data
Lab Results
11/23/23 03:24
11/23/23 03:24
PT 19.4 Sec (11.4-14.6) H 11/21/23 15:30
INR 1.63 11/21/23 15:30
Estimated Creat Clear 49 ml/min 11/23/23 03:24
Lactic Acid 1.7 mmol/L (0.7-2.0) 11/21/23 15:30
Total Bilirubin 0.5 mg/dl (0.2-1.3) 11/23/23 03:24
AST 16 U/L (17-59) L 11/23/23 03:24
ALT 22 U/L (0-50) 11/23/23 03:24
Alkaline Phosphatase 134 U/L (38-126) H 11/23/23 03:24
Most recent labs reviewed.
Micro Results:
11/22/23 12:51 Respiratory Culture - Final
Sputum Gram Stain - Final
11/21/23 15:30 Blood Culture - Preliminary
Blood/Venous No Growth in 24 hours- Final report to follow
11/21/23 15:37 Blood Culture - Preliminary
Blood/Venous No Growth in 24 hours- Final report to follow
11/21/23 16:59 Urine Culture - Final
Urine NO GROWTH
11/21/23 22:05 Nasal Screen MRSA (PCR) - Final
Nose Staph aureus MRSA
11/21/23 15:36 Influenza Types A & B (ARMEN) - Final
Nasal Swab Negative for Influenza A & B, NAAT
Negative results must be combined with clinical observations
and patient history.
Nucleic Acid Amplification test (NAAT)performed on the
[employer] platform.
11/21/23 CT a/p w IV contrast: Acute diverticulitis of the mid sigmoid colon, progressed. Resolving diverticulitis of the hepatic flexure. New 2.7 cm rim-enhancing subcapsular right hepatic lobe cystic lesion highly suggestive of abscess. Findings
suggesting splenic infarcts, new from prior. Small left pleural effusion with associated left lower lobe atelectasis and/or pneumonia, slightly progressed. Grossly stable scattered small bilateral upper lung zone nodules. Differential includes
septic emboli versus metastases.
11/21/23 CXR: Stable small left pleural effusion with associated atelectasis and/or pneumonia.
[facility] imaging:
11/19/23 CT a/p with IV contrast: Moderate to severe sigmoid diverticulitis diverticulitis with findings are suggestive of intramural abscesses. Smaller subcapsular splenic fluid collection, significantly decreased in size since chest CT on 11/12/2023,
likely reflecting a resolving subcapsular hematoma with evolving splenic infarcts.Redemonstrated partially visualized pulmonary nodules in the right lung some of which are cavitary, may reflect septic emboli versus metastases.Soft tissue thickening
in the prostatic bed compatible with known prostate cancer recurrence, which is similar to 09/09/2023. Local invasion of prostate cancer to the adjacent structures will be better characterized on MRI.Hyperenhancing lesions in the liver, which were
present on the prior examination. These lesions are not well characterized. See above description. MRI of the liver can be considered for further evaluation.Stable nonspecific perihepatic complex ascites. Indeterminant whether the hyperattenuating
components are enhancing or represent hemorrhagic/proteinaceous material.
11/12/2023 CT chest wo: Multifocal cavitating nodules are concerning for septic emboli versus cavitating metastases. Small left pleural effusion and associated compressive atelectasis.
Mixed lytic and sclerotic lesion in the lateral left fifth and sixth ribs may reflect metastatic disease or sequelae of multiple myeloma. Suspected perisplenic hematoma and possible laceration, incompletely characterized.
--- NOTE | 2023-11-23 11:05 | EEG.RPT ---
Electroencephalogram Report
Recording
Date of EE11/23/23
Type of EEG: Routine
Length of EEG recordin minutes
Patient Status: Inpatient
Hyperventilation Performed: No
Photic Stimulation Performed: Yes
Report
digitized electroencephalogram was performed at [facility]. The 10/20 international system of electrode placement was used. In addition to EEG, the patient was monitored for EKG. The duration of the recording was 24 minutes.
BACKGROUND
During the awake state, with the eyes closed, the background consisted of a normal amplitude, 9 Hertz posterior reactive rhythm that attenuated appropriately with eye opening. Beta activity was distributed diffusely with an anterior predominance.
There was a normal anterior-posterior voltage gradient. With eye opening the background activity changed to a low voltage mixture of alpha, beta, and occasional theta range frequencies. There were no significant asymmetries of background activity
noted.
PHOTIC STIMULATION
Photic stimulation using a step-lowe increase in photic frequency varying from 1-31 Hertz resulted in no driving responses but no appearance of abnormal activity.
ABNORMAL EEG ACTIVITY
None
CLINICAL EVENTS
None
INTERPRETATION AND CLINICAL CORRELATION
This EEG is normal during the awake and drowsy state as well as during the activation procedures of photic stimulation. The study was at times obscured by muscle artifact. No seizures were noted during the recording. A normal EEG, in itself, does
not rule out a diagnosis of epilepsy. If clinical suspicion for seizure persists, a sleep-deprived and/or prolonged recording may be warranted.
[2023-11-23 11:19] LABS: Glucose - Point of Care 419 mg/dl (70-99)
[2023-11-23] MEDS: AUGMENTIN 875 MG/125 MG 1 TABLET PO ×2 (11:26→20:41)
[2023-11-23 11:43] LABS: Glucose 406 mg/dl (70-99)
--- NOTE | 2023-11-23 11:57 | W.PN.NEURO.1 ---
Today's Communication / Plan
-
No strong indication for CT head felt at this time with clear reasons for confusion, nonfocal neurologic examination not supportive of stroke or structural lesion. If seizure or worsening mental status occurs would image with CT head non contrast
at first and then brain MRI without contrast
Neuro Assessment/Plan
Assessment
Impressions
1. Encephalopathy. High suspicion for neurotoxicity related to Talvey. Agree seems grade 1, has confusion but not showing significantly decreased level of consciousness. No overt seizures thus far. Encephalopathy due to sepsis certainly is
possible.
2. Multiple myeloma
EEG x 2 have been unremarkable
Plan
Recommendations:
No strong indication for CT head felt at this time with clear reasons for confusion, nonfocal neurologic examination not supportive of stroke or structural lesion. If seizure or worsening mental status occurs would image with CT head non contrast
at first and then brain MRI without contrast
We will follow as needed. Please contact us with additional questions or issues.
Subjective/Objective
Subjective Data
Date of Service: November 23, 2023
Objective Data
Vital Signs
Temp Pulse Resp BP Pulse Ox
36.6 C 85 25 102/64 91
11/23/23 07:25 11/23/23 11:00 11/23/23 11:00 11/23/23 11:00 11/23/23 11:00
Lab Results
11/23/23 03:24
11/23/23 11:21
PT 19.4 Sec (11.4-14.6) H 11/21/23 15:30
INR 1.63 11/21/23 15:30
Sodium 137 mmol/L (135-145) 11/23/23 03:24
Potassium 4.2 mmol/L (3.5-5.1) 11/23/23 03:24
BUN 38 mg/dl (9-20) H 11/23/23 03:24
Glucose 406 mg/dl (70-99) H 11/23/23 11:21
Calcium 7.2 mg/dl (8.4-10.2) L 11/23/23 03:24
Gkh-J-Klhfsrfafke Pept 7260 pg/ml 11/21/23 15:30
Patient Allergies
bacitracin [From Neosporin ([id number])] Allergy (Verified 09/09/23 10:19)
redness
neomycin [From Neosporin ([id number])] Allergy (Verified 09/09/23 10:19)
redness
polymyxin B [From Neosporin ([id number]-[id number])] Allergy (Verified 09/09/23 10:19)
redness
Data Reviewed
-
Labs: Report Reviewed
Reviewed with: Physician
Old Records: Summarized
Past History
Past History
ED Past Medical History: Cancer, HTN and Other (renal stones, diverticulitis, urosepsis)
ED Past Surgical History: None
Social History
Tobacco: Non-smoker
Personal:
Living: with family
Employment: Employed
Family History
Family History: Other (reviewed and noncontributory)
Medications
-
Medications:
Generic Name Dose Route Start Last Admin
Trade Name Freq PRN Reason Stop Dose Admin
Acetaminophen 650 mg 11/21/23 23:10 11/22/23 16:17
Acetaminophen 325 Mg Tablet PO 12/19/23 23:09 650 mg
Q4HPRN PRN Administration
mild pain/ fever>100.5F
Acyclovir Sodium 400 mg 11/21/23 20:00 11/23/23 08:17
Acyclovir Sodium 200 Mg Capsule PO 12/20/23 19:59 400 mg
BID SOULEYMANE Administration
Amoxicillin/Clavulanate Potassium 1 tablet 11/23/23 11:00 11/23/23 11:26
Amoxicillin (875 Mg)/Clavulanate (125 Mg) Tablet PO 11/29/23 20:01 1 tablet
Q12 SOULEYMANE Administration
Cholecalciferol 25 mcg 11/22/23 08:00 11/23/23 08:13
Cholecalciferol (Vitamin D3) 25 Mcg Tablet (1,000 Units) PO 12/20/23 07:59 25 mcg
DAILY SOULEYMANE Administration
Cyanocobalamin 1,000 mcg 11/22/23 08:00 11/23/23 08:13
Cyanocobalamin 1,000 Mcg Tablet PO 12/20/23 07:59 1,000 mcg
DAILY SOULEYMANE Administration
Dextrose 12.5 grams 11/23/23 09:32
Dextrose 50% (0.5 Grams/Ml) 50 Ml Syringe IV 12/21/23 09:31
[id number] PRN
hypoglycemia
Protocol
Glucagon 1 mg 11/23/23 09:32
Glucagon 1 Mg Vial IM 12/21/23 09:31
PRN PRN
hypoglycemia
Protocol
Guaifenesin 600 mg 11/21/23 20:00 11/23/23 08:17
Guaifenesin 600 Mg Extended Release Tablet PO 12/19/23 19:59 600 mg
BID SOULEYMANE Administration
Heparin Sodium 5,000 units 11/21/23 20:00 11/23/23 08:18
Heparin 5,000 Units/Ml 1 Ml Vial SC 12/19/23 19:59 Not Given
Q12 SOULEYMANE
Norepinephrine Bitartrate 4 mg in 250 mls @ 0 mls/hr 11/22/23 11:00 11/23/23 10:06
Levophed IV 250 mls
PER PROTOCOL SOULEYMANE Administration
Protocol
Per Protocol
Dexamethasone Sodium Phosphate 52.5 mls @ 210 mls/hr 11/22/23 13:00 11/23/23 11:27
10 mg/ Sodium Chloride IV 11/25/23 06:14 52.5 mls
Q6 SOULEYMANE Administration
Insulin Glargine 10 units/ 0.1 mls @ 0 mls/hr 11/23/23 22:00
Device IA 12/21/23 21:59
HS SOULEYMANE
As Directed
Insulin Aspart 8 units 11/23/23 11:30
Insulin Aspart (100 Units/Ml) 3 Ml Flexpen SC 12/21/23 11:29
AC SOULEYMANE
Insulin Aspart 0 units 11/23/23 11:30
Insulin Aspart Moderate Resistance 300 Units/3 Ml Pen.Injctr IA 12/21/23 11:29
AC SOULEYMANE
Protocol
Loratadine 10 mg 11/21/23 20:22
Loratadine 10 Mg Tablet PO 12/19/23 20:21
DAILYPRN PRN
allergies
Ambrisentan [ 0 mg 11/22/23 15:00 11/23/23 08:18
Letairis] 5 Mg PO 12/20/23 14:59 5 mg
Tablet - 1 Tablet ( DAILY SOULEYMANE Administration
5mg) Po Daily
Sildenafil Citrate 20 mg 11/22/23 22:00 11/23/23 08:18
Sildenafil 20 Mg Tablet PO 12/20/23 21:59 20 mg
TID SOULEYMANE Administration
Sodium Chloride 0 flush 11/21/23 19:00
Sodium Chloride 0.9% (Flush) Syringe IV 12/19/23 18:59
PER PROTOCOL SOULEYMANE
Tamsulosin HCl 0.4 mg 11/22/23 18:00 11/22/23 17:35
Tamsulosin 0.4 Mg Capsule PO 12/20/23 17:59 0.4 mg
QPM SOULEYMANE Administration
[2023-11-23] MEDS: NOVOLOG FLEXPEN 8 UNITS SC (12:00)
[2023-11-23] MEDS: NOVOLOG FLEXPEN-MODERATE RESISTANCE 11 UNITS SC (12:01)
--- NOTE | 2023-11-23 12:55 | W.PN.ONC ---
Today's Communication / Plan
-
neurologically improved
cont steroids
CBC stable
myeloma panel pending
Impression
Impression
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
Rule out sepsis
Recent diverticular abscess
Refractory multiple myeloma with associated pancytopenia
Recent Pseudomonas bacteremia
Recent splenic hematoma
Pulmonary hypertension
History of B12 deficiency
History of prostate carcinoma
Plan
Plan
neurologically improved today - no confusion
cont steroids - dex 10 IV q6
follow clinically
neurology following
CBC stable
myeloma panel pending
Subjective/Objective
Subjective/Objective
feels better - no confusion
Vital Signs:
Vital Signs
Temp Pulse Resp BP Pulse Ox
98.5 F 78 23 90/56 92
11/23/23 11:30 11/23/23 12:00 11/23/23 12:00 11/23/23 12:00 11/23/23 11:30
Lab Results:
Laboratory Data
WBC 4.4 10^3/uL (4.8-10.8) L 11/23/23 03:24
Hgb 7.7 g/dL (13.0-18.0) L 11/23/23 03:24
Plt Count 117 10^3/uL (130-400) L 11/23/23 03:24
PT 19.4 Sec (11.4-14.6) H 11/21/23 15:30
INR 1.63 11/21/23 15:30
eGFR 52.74 11/23/23 03:24
Exam:
Gen: awake in NAD
Neuro: A&O x3
--- NOTE | 2023-11-23 13:10 | W.PN.CARDCBS ---
Today's Communication / Plan
-
Would hold off on resuming diuretics while requiring pressure support, wean norepi as able
Impression / Plan
-
.
Primary Firer Glost Kiln: Dr. Ginger Lal
PCP: Dr. Hunter
Impression:
-Hypoxia
-Hypotension
-Confusion
-Concern for septic shock
-Admission to [facility], discharged 11/19/2023 after initiation of Talvey therapy for refractory myeloma
-Active Multiple myeloma
-Diverticular abscess, treated with Augmentin, with hx diverticulitis 2015
-Concern for septic emboli of lungs by review of records from [place]
-Pulmonary hypertension and chronic RV dysfunction/heart failure with preserved ejection fraction
-Mild aortic stenosis
-Hypertension
-Dyslipidemia on red yeast rice
-CT imaging noting coronary atherosclerosis without history of [place]
-Aortic atherosclerosis without aneurysm
-Right bundle branch block
-Type 2 diabetes mellitus
-Fatty liver infiltration
-Hx prostate cancer status post prostatectomy
-Degenerative joint disease of lumbar spine
-Hyponatremia
Echocardiogram 08/30/2023: Ejection fraction 55 to 60%, D-shaped septum in systole and diastole consistent with RV pressure and volume overload, mild aortic stenosis with mean gradient of 11 mmHg aortic valve area 1.5 cm�, mild TR with PA systolic of
55 mmHg
Echo 11/05/2023: Mildly reduced left ventricular systolic function. Global hypokinesis. Abnormal (paradoxical) septal motion consistent with left bundle branch block. Flattened septum in systole consistent with RV pressure overload. Left ventricular
ejection fraction is 40-45 %. Trace mitral regurgitation. Aortic valve peak/mean gradients are 23/15 mmHg. MARYELLEN 1.2 cm2. Mild aortic stenosis. Estimated pulmonary artery pressure of 30-35 mmHg.
Right heart catheterization 09/13/2023
Hemodynamics (mmHg):
RA (m) : 13
RV (s/d,m) : 77/12, 17
PA (s/d, m) : 77/23, 48
PCWP (m) : 18
Cardiac Output : 5.2 L/min
Cardiac Index : 2.5 L/min/m-2
Systemic vascular resistance: 13.5 Wood units or 1077 [id number]-[id number](-5)
Pulmonary vascular resistance: 5.8 Wood units or 461 [id number]-[id number](-5)
CONCLUSION:
1.� Postcapillary pulmonary hypertension with hemodynamics most consistent with group 2 and group 5 with mean PA pressure of 48 mmHg, pulmonary capillary wedge pressure 18 mmHg and PVR 5.8 Wood units
Venous u/s neg for DVT
Chest xray Nov 21 2023: Stable small left pleural effusion with associated atelectasis and/or pneumonia.
CT chest/abd/pelvis Nov 21 2023:
1. Acute diverticulitis of the mid sigmoid colon, progressed. Resolving diverticulitis of the hepatic flexure.
2. New 2.7 cm rim-enhancing subcapsular right hepatic lobe cystic lesion highly suggestive of abscess.
3. Findings suggesting splenic infarcts, new from prior.
4. Small left pleural effusion with associated left lower lobe atelectasis and/or pneumonia, slightly progressed.
5. Grossly stable scattered small bilateral upper lung zone nodules. Differential includes septic emboli versus metastases.
HPI: Patient was seen in cardiology office 11/21/2023 and was noted to be confused, hypoxic, and hypotensive with SBP 80s mmHg and Pox 89-90%, so sent urgently to ER. He had recent admission to [facility] (discharged Sunday11/19/23) where he was started
on Talvey for refractory/resistant myeloma.
Plan:
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
Still requiring pressor support with norepinephrine, wean as able
Hold off on resuming lasix while requiring pressors, hopefully can add back tomorrow
Continues on abrisentan and sildenafil for PH
Discussed with patient and family at bedside
Progress Note - Firer Glost Kiln
Subjective
Date of Service: November 23, 2023
No acute overnight events. They tell me his mental status is back at baseline this morning. Not offering any cardiac meds today.
Objective
Labs:
11/23/23 03:24
11/23/23 11:21
Labs
Hgb 7.7 g/dL (13.0-18.0) L 11/23/23 03:24
Hct 23.4 % (39.0-52.0) L 11/23/23 03:24
Plt Count 117 10^3/uL (130-400) L 11/23/23 03:24
PT 19.4 Sec (11.4-14.6) H 11/21/23 15:30
INR 1.63 11/21/23 15:30
Sodium 137 mmol/L (135-145) 11/23/23 03:24
Potassium 4.2 mmol/L (3.5-5.1) 11/23/23 03:24
BUN 38 mg/dl (9-20) H 11/23/23 03:24
Creatinine 1.4 mg/dL (0.7-1.3) H 11/23/23 03:24
Glucose 406 mg/dl (70-99) H 11/23/23 11:21
Troponins
11/21/23
15:30
Troponin I < 0.012
Vital Signs and I&O:
Vital Signs
Temp Pulse Resp BP Pulse Ox
98.5 F 78 23 90/56 92
11/23/23 11:30 11/23/23 12:00 11/23/23 12:00 11/23/23 12:00 11/23/23 11:30
Vital Signs
Temp Pulse Resp BP Pulse Ox
98.5 F 78 23 90/56 92
11/23/23 11:30 11/23/23 12:00 11/23/23 12:00 11/23/23 12:00 11/23/23 11:30
Intake & Output
11/21/23 11/22/23 11/23/23 11/24/23
06:59 06:59 06:59 06:59
Intake Total 100 / 100 1135 / 1135 512 / 512
Output Total 550 / 550 650 / 650 625 / 625
Balance -450 / -450 485 / 485 -113 / -113
Physical Exam
Physical Exam
Gen: NAD, AAOx3
HEENT: NC/AT, sclera anicteric
Neck: No JVD
CV: RRR, NL s1/s2
Lungs: CTAB
Abd: S/ND
Ext: Tubigrip's in place
Skin: Warm, dry
Neuro: Non-focal
[2023-11-23 16:27] LABS: Glucose - Point of Care 416 mg/dl (70-99)
--- NOTE | 2023-11-23 16:27 | CM ---
Patient with Hx multiple myeloma on chemo with Dx Acute hypoxic respiratory insufficiency--secondary to pneumonia versus atelectasis. O2 4L. Receiving Levophed gtt, IV Decadron. PT & OT recommend acute rehab. Physiatry Eval pending.
Spoke with Byron Reyes; she will review the referral and follow up with CM on Sunday.
Spoke with patient's Chanda; discussed the [facility] referral process. expressed concern of whether patient can get his second dose of chemo if he is at [facility], which is scheduled for 12/03- urged her to discuss with oncologist.
Plan follow up after seen by Physiatry.
[2023-11-23 16:53] LABS: Glucose 394 mg/dl (70-99)
[2023-11-23] MEDS: NOVOLOG FLEXPEN 12 UNITS SC (16:55)
[2023-11-23] MEDS: NOVOLOG FLEXPEN-MODERATE RESISTANCE 9 UNITS SC (16:55)
--- NOTE | 2023-11-23 17:13 | PTCARENOTE ---
Received this am with IV Levofed infusing at 2mcg, maps 65-70s. Generalized anasarca, lower extremities +2-3- Tubigrip stockinette placed to LE. OOB to recliner chair most of the day. Ox3 slightly forgetful. LC remains on RAIR. Appetite is
good, accu checks RR- required lab draws to confirm- Insulin coverage per that reading. Adequate urine output. Reviewed low Na diet and FR with pt and . will bring measured water bottle in. Weaning levo, tolerating 1mcg will monitor.
[2023-11-23] MEDS: FLOMAX 0.400000000000000022 MG PO (17:38)
--- NOTE | 2023-11-23 18:39 | CON.MD ---
Consultation - Medical
-
Referring Provider: Dr. Merna Bonilla
Chief Complaint:
History of Present Illness: 73-year-old right-handed male with PMH (as below) presented to [facility] on 11/21/2023 with weakness, hypotension, and confusion. He was recently discharged from [place] 2 days prior after treatment for multiple
myeloma with Talvey. He was given lots of IV fluid and developed some pulmonary edema requiring diuresis. Also had a fall previously with a perisplenic hematoma. Also with severe sigmoid diverticulitis with suspected mural abscess without
symptoms and started on Augmentin prior to discharge home. [place] to have sepsis requiring Levophed and started on broad-spectrum antibiotics IV. Concern for immune effector cell neurotoxicity post talquetamab per oncology and neurology. EEG with
no seizure activity and Keppra held. Also with acute hypoxic respiratory insufficiency thought secondary to pneumonia versus atelectasis, also noted with scattered small bilateral upper lung zone nodules with differential of septic emboli versus
metastasis. Pancytopenia secondary to multiple myeloma. Completing course of Augmentin through 11/29/2023 for diverticulitis.
Overall feeling better but still fatigued. Given that he looks short of breath but he does not feel short of breath. Denies any vision problems or dizziness at this time. No bladder or bowel concerns. No pain.
Past Medical History: Chronic HFpEF, chronic right bundle branch block, pulmonary hypertension, mild aortic stenosis, hypertension, multiple myeloma, CKD 3B, obesity, type 2 diabetes, prostate cancer status post prostatectomy and radiation, B12
deficiency, diverticulitis, sciatica, insomnia, hepatic steatosis, hyponatremia, Pseudomonas bacteremia, renal stones
Procedure History: Prostatectomy, stem cell transplant, cataracts
Family History: Mother with diverticulitis
Social History:
Functional Level Premorbidly: Independent with all activities
Functional Level Currently:�� Supervision for transfers. Ambulating 40 feet with rolling walker min assist. Min assist toileting, min assist lower extremity self-care, min assist toilet transfer.
Tobacco: Former smoker quit 40 years ago
Alcohol: Denies
Drug use: Denies
Lives with:
24-hour assistance available: Yes
Number of floors: 2
# steps to enter: 2
# steps to second floor: Full flight
Potential First floor set up: No
Driving: Yes
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
Allergies:
Allergy/AdvReac Type Severity Reaction Status Date / Time
bacitracin Allergy redness Verified 09/09/23 10:19
[From Neosporin
([id number])]
neomycin Allergy redness Verified 09/09/23 10:19
[From Neosporin
([id number])]
polymyxin B Allergy redness Verified 09/09/23 10:19
[From Neosporin
([id number])]
Review of Systems:
Constitutional: (x) abNormal _fatigue
Eye: (x) Normal _
Ear/Nose/Throat: (x) Normal _
Respiratory: (x) Normal _
Cardiovascular: (x) Normal _
Gastrointestinal: (x) Normal _
Genitourinary: (x) Normal _
Musculoskeletal: (x) Normal _
Integumentary: (x) Normal _
Neurologic: (x) Normal _denies any numbness or tingling
Psychiatric: (x) Normal _
Endocrine: (x) Normal _
Hematologic/Lymphatic: (x) Normal _
Allergic/Immunologic: (x) Normal _
Medications:
Active Current Visit Medication List
Category Date Time Status
Acetaminophen [Tylenol] Med 11/21/23 23:10 Active
650 mg PO Q4HPRN PRN
Acyclovir [Zovirax] Med 11/21/23 20:00 Active
400 mg PO BID
Amoxicillin 875 mg/Clav 125 mg [Augmentin 875 mg/125 mg Med 11/23/23 11:00 Active
]
1 tablet PO Q12
Cholecalciferol (Vitamin D3) [VITAMIN D3 ( Med 11/22/23 08:00 Active
cholecalciferol)]
25 mcg PO DAILY
Cyanocobalamin [Vitamin B-12] Med 11/22/23 08:00 Active
1,000 mcg PO DAILY
Dexamethasone Sod Phosphate [Decadron] 10 mg Med 11/22/23 13:00 Active
0.9% Sodium Chloride 50 ml [Nss] 50 ml
IV Q6
Dextrose 50%-Water [Dextrose 50% Syringe] Med 11/23/23 09:32 Active
12.5 grams IV [id number] PRN
Flush (0.9% Sodium Chloride) [Flush (Nss)] Med 11/21/23 19:00 Active
See Dose Instructions IV PER PROTOCOL
Glucagon [GlucaGen] Med 11/23/23 09:32 Active
1 mg IM PRN PRN
Guaifenesin [Mucinex] Med 11/21/23 20:00 Active
600 mg PO BID
Heparin Med 11/21/23 20:00 Active
5,000 units SC Q12
Insulin Aspart Corrective Mod [Novolog Flexpen-Moderate Med 11/23/23 11:30 Active
Resistance]
See Protocol SC AC
Insulin Aspart Pen [Novolog Flexpen] Med 11/23/23 16:30 Active
12 units SC AC
Insulin Glargine Lantus [Lantus] 20 units Med 11/23/23 22:00 Active
Subcutaneous Insulin Syringe [Syringe-Insulin] 0 unit
SC HS
Loratadine [Claritin] Med 11/21/23 20:22 Active
10 mg PO DAILYPRN PRN
NORepinephrine 4 MG/250 ML [Levophed] Med 11/22/23 11:00 Active
4 mg in 250 ml IV PER PROTOCOL
Sildenafil Citrate [Revatio] Med 11/22/23 22:00 Active
20 mg PO TID
Tamsulosin [Flomax] Med 11/22/23 18:00 Active
0.4 mg PO QPM
ambrisentan [Letairis] Med 11/22/23 15:00 Active
See Dose Instructions PO DAILY
Vitals:
Temp Pulse Resp BP Pulse Ox
98 F 80 20 113/60 97
11/23/23 15:45 11/23/23 17:00 11/23/23 17:00 11/23/23 17:00 11/23/23 17:00
Height 5 ft 7 in
Actual Weight 89.7 kg
Body Mass Index (BMI) 31.0
Physical Exam:
General Appearance/Observation: Well-developed, well-nourished male in no apparent distress.
Pain/Comfort Assessment: Denies
Mood/Affect: Appropriate
Integumentary/Operative Site: No concerns noted during course of exam
Eyes: Conjunctiva/Lids: normal ��� Pupils: pupils equal round and reactive to light and Accommodation
Ears/Nose/Throat: oral mucosa moist,� throat clear.������������ Lips/Teeth/Gums: normal
Neck: No muscle spasm or tenderness
Cardiovascular: Heart: regular, no murmur
Pulses: dorsalis pedis 2+ bilaterally
Respiratory: Respiratory Effort/Chest Expansion: normal ������ Auscultation: Clear to auscultation bilaterally
Gastrointestinal: abdomen not tender, no distension, normal abdominal bowel sounds
Genitourinary: No Flowers
Extremities: Edema: None Cyanosis: None Trophic changes: None
Neurology Exam:
Orientation: Alert, Oriented to self, Time, Place
Memory: Intact for recent medical concerns
Comprehension: Intact
Two step command: Intact
Calculation: Unable to do subtraction 21-3
Cranial Nerves:
�� CNII: Pupillary light reflex: Intact��� Visual Field: Intact
�� CN III, IV, : Extraocular muscles: Intact
�� CN V: Facial Sensation at Forehead: Intact, Maxilla: Intact, Mandible: Intact
�� CN VII: Facial movement: Symmetric
�� CN VIII: Hearing: Normal
�� CN IX/X: Speech & swallow: Normal, Position of Uvula: Midline
�� CN XI: Shoulder shrug: Symmetric
�� CN XII: Tongue protrusion: Midline
Sensory:
�� Light touch: Intact in bilateral upper and lower extremities
�� Babinski: Down going bilaterally
�� Clonus: None
�� Abelino: Negative bilaterally
Cerebellar: Dysmetria/Ataxia: None
Musculoskeletal:Motor: (Manual muscle scale 0-5)
Muscle SA EF WE EE FF FA HF KE DF EHL PF
Right� 5 5 5 5 5 5 5 5 5 5 5
Left 5 5 5 5 5 5 5 5 5 5 5
Tone: Normal in all extremities
Range of Motion: Passively within normal limits in all extremities
Lab Results
Laboratory Data
11/23/23 03:24
11/23/23 16:32
PT 19.4 Sec (11.4-14.6) H 11/21/23 15:30
INR 1.63 11/21/23 15:30
Total Bilirubin 0.5 mg/dl (0.2-1.3) 11/23/23 03:24
AST 16 U/L (17-59) L 11/23/23 03:24
ALT 22 U/L (0-50) 11/23/23 03:24
Alkaline Phosphatase 134 U/L (38-126) H 11/23/23 03:24
Total Protein 8.8 g/dl (6.3-8.2) H 11/23/23 03:24
Albumin 2.6 g/dl (3.5-5.0) L 11/23/23 03:24
Diagnostic Results: as per HPI
Assessment
73-year-old M PMH (Chronic HFpEF, chronic right bundle branch block, pulmonary hypertension, mild aortic stenosis, hypertension, multiple myeloma, CKD 3B, obesity, type 2 diabetes, prostate cancer status post prostatectomy and radiation, B12
deficiency, diverticulitis, sciatica, insomnia, hepatic steatosis, hyponatremia, Pseudomonas bacteremia, renal stones) with 11/21/2023 encephalopathy thought secondary to immune effector cell neurotoxicity post talquetamab and sepsis from
diverticulitis
Plan
PM&R PT/OT to increase independence with ADLs, improve balance, coordination, endurance, strength, mobility, community reintegration, decreased burden of care on others and family education.
Encephalopathy: Thought secondary to immune effector cell neurotoxicity post talquetamab and sepsis from diverticulitis
Sepsis: Augmentin per ID
HTN: continue medications, monitor closely
Pancytopenia: From chemotherapy.
Diabetes mellitus: Accu-Cheks, NovoLog, insulin sliding scale, glargine
Chronic CHF: Monitor fluid status, monitor weights.
FEN: Regular
Psych: Psychology consult.� Monitor mood, adjust medications as needed.
Skin: monitor for pressure sores/rashes/lesions.
Pain: acetaminophen as needed.
Bowel: Colace and Senna, PRN bisacodyl.
Bladder: Flomax. Time void, PVRs, PRN straight cath.
GI Prophylaxis: Pantoprazole
DVT Prophylaxis: Mechanical and heparin.
Pulmonary: Incentive spirometry
Obesity: Continue to program counselor patient about diet adjustments to control obesity. Body habitus and increased force to move body and extremities causes further difficulty with functional tasks.
Safety: Continue to reinforce assistance with all transfers.
Code Status:� Full code
Dispo (date/plan/equipment needs): Home with family care.
Functional and Medical Goals: Modified Independent with ADL�s, ambulation, transfers
Discharge Destination: Acute inpatient rehabilitation
A total of 60 minutes were spent with the patient preparing for the evaluation, obtaining history, performing examination and evaluation, counseling, data review, case management, care coordination, border machine operator, and EMR documentation.
Summary of recommendations:
- Discharge Destination: Acute inpatient rehabilitation
Encephalopathy: Thought secondary to immune effector cell neurotoxicity post talquetamab and sepsis from diverticulitis
Sepsis: Augmentin per ID
HTN: continue medications, monitor closely
Pancytopenia: From chemotherapy.
Thank you for allowing me to care for your patient. Please contact me with any questions or concerns.
[2023-11-23] MEDS: HEPARIN 5000 UNITS SC (20:41)
[2023-11-23 21:35] LABS: Glucose - Point of Care 386 mg/dl (70-99)
[2023-11-23] MEDS: LANTUS 0.200000000000000011 UNITS SC (21:56)
[2023-11-23] MEDS: NOVOLOG FLEXPEN 10 UNITS SC (22:38)
[2023-11-24] VITALS (23 sets, daily range): BP systolic 85–126; BP diastolic 47–78; BMI 30.6
--- NOTE | 2023-11-24 00:16 | PTCARENOTE ---
Assumed care of pt after walking rounds. Patient is alert and oriented x 3 but does lose train of thought at times and needs redirection. Pleasant and cooperative, using call light to request assistance from staff. Ambulated to bathroom with 1
assist. Patient brushed teeth and assisted with hygiene while OOB. Pulse ox >92 on room air at rest and with activity. Lungs diminished in bases, tachypnea with exertion, occasional dry Nonproductive. patient denies any pain at this time. Abdomen
soft with bowel tones x 4. tolerated diet at dinner. Pt aware of fluid restriction but admits 'it's tough' to comply. MAP remains > 65
--- NOTE | 2023-11-24 03:45 | PTCARENOTE ---
MAP continues at > 65 with BP 1o1/56. Pt sleeping soundly but pulse ox 88% on room air. 2L NC reapplied and pulse ox 95%. Pt aroused easily for staff to apply oxygen and then returned to sleep.
[2023-11-24] MEDS: FLUSH (NSS) 2 FLUSH IV (05:31)
[2023-11-24] MEDS: DECADRON 52.5 MG IV ×4 (05:31→23:57)
[2023-11-24 05:34] LABS: ALT (SGPT) 24 U/L (0-50); AST (SGOT) 18 U/L (17-59); Albumin 2.5 g/dl (3.5-5.0); Alkaline Phosphatase 117 U/L (38-126); Blood Urea Nitrogen 41 mg/dl (9-20); Calcium 7.5 mg/dl (8.4-10.2); Carbon Dioxide 21 mmol/L (22-30); Chloride 113 mmol/L (98-107); Estimated Creatinine Clearance 58 ml/min; Glucose 269 mg/dl (70-99); Magnesium 2.3 mg/dl (1.6-2.3); Potassium 4.1 mmol/L (3.5-5.1); Sodium 137 mmol/L (135-145); Total Bilirubin 0.4 mg/dl (0.2-1.3); Total Protein 8.3 g/dl (6.3-8.2); eGFR > 60.00
--- NOTE | 2023-11-24 07:25 | PTCARENOTE ---
episode of MAP < 65 but with retaking of BP MAP >65
[2023-11-24] MEDS: MUCINEX 600 MG PO ×2 (07:30→20:15)
[2023-11-24] MEDS: AUGMENTIN 875 MG/125 MG 1 TABLET PO ×2 (07:30→20:16)
[2023-11-24] MEDS: VITAMIN B-12 1000 MCG PO (07:30)
[2023-11-24] MEDS: ZOVIRAX 400 MG PO ×2 (07:30→20:16)
[2023-11-24] MEDS: REVATIO 20 MG PO ×3 (07:30→20:16)
[2023-11-24] MEDS: HEPARIN 5000 UNITS SC ×2 (07:30→20:16)
[2023-11-24] MEDS: VITAMIN D3 (cholecalciferol) 25 MCG PO (07:30)
[2023-11-24] MEDS: NON-FORMULARY ITEM 5 MG PO (07:31)
--- NOTE | 2023-11-24 07:52 | W.PN.CARDCBS ---
Today's Communication / Plan
-
Mental status continues to improve. 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
He is off pressors. Bp stable.
Resume lasix with 40 mg IV X 1 today and then likely resume outpt oral lasix 80 mg daily starting tomorrow November 24.
Continues on abrisentan and sildenafil for PTNH
Discussed with patient and daughter via phone
Impression / Plan
-
.
Primary Carpenter Maintenance: Dr. Ginger Lal
PCP: Dr. Hunter
Impression:
-Hypoxia, improved
-Hypotension, improved
-Confusion, improved
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
-Admission to [facility], discharged 11/19/2023 after initiation of Talvey therapy for refractory myeloma
-Active Multiple myeloma
-Diverticular abscess, treated with Augmentin, with hx diverticulitis 2016
-Concern for septic emboli of lungs by review of records from [place]
-Pulmonary hypertension and chronic RV dysfunction/heart failure with preserved ejection fraction
-Mild aortic stenosis
-Hypertension
-Dyslipidemia on red yeast rice
-CT imaging noting coronary atherosclerosis without history of [place]
-Aortic atherosclerosis without aneurysm
-Right bundle branch block
-Type 2 diabetes mellitus
-Fatty liver infiltration
-Hx prostate cancer status post prostatectomy
-Degenerative joint disease of lumbar spine
-Hyponatremia
Echocardiogram 08/30/2023: Ejection fraction 55 to 60%, D-shaped septum in systole and diastole consistent with RV pressure and volume overload, mild aortic stenosis with mean gradient of 11 mmHg aortic valve area 1.5 cm�, mild TR with PA systolic of
55 mmHg
Echo 11/05/2023: Mildly reduced left ventricular systolic function. Global hypokinesis. Abnormal (paradoxical) septal motion consistent with left bundle branch block. Flattened septum in systole consistent with RV pressure overload. Left ventricular
ejection fraction is 40-45 %. Trace mitral regurgitation. Aortic valve peak/mean gradients are 23/15 mmHg. MARYELLEN 1.2 cm2. Mild aortic stenosis. Estimated pulmonary artery pressure of 30-35 mmHg.
Right heart catheterization 09/13/2023
Hemodynamics (mmHg):
RA (m) : 13
RV (s/d,m) : 77/12, 17
PA (s/d, m) : 77/23, 48
PCWP (m) : 18
Cardiac Output : 5.2 L/min
Cardiac Index : 2.5 L/min/m-2
Systemic vascular resistance: 13.5 Wood units or 1077 [id number]-wib-ac(-5)
Pulmonary vascular resistance: 5.8 Wood units or 461 [id number]-[id number](-5)
CONCLUSION:
1.� Postcapillary pulmonary hypertension with hemodynamics most consistent with group 2 and group 5 with mean PA pressure of 48 mmHg, pulmonary capillary wedge pressure 18 mmHg and PVR 5.8 Wood units
Venous u/s neg for DVT
Chest xray Nov 21 2023: Stable small left pleural effusion with associated atelectasis and/or pneumonia.
CT chest/abd/pelvis Nov 21 2023:
1. Acute diverticulitis of the mid sigmoid colon, progressed. Resolving diverticulitis of the hepatic flexure.
2. New 2.7 cm rim-enhancing subcapsular right hepatic lobe cystic lesion highly suggestive of abscess.
3. Findings suggesting splenic infarcts, new from prior.
4. Small left pleural effusion with associated left lower lobe atelectasis and/or pneumonia, slightly progressed.
5. Grossly stable scattered small bilateral upper lung zone nodules. Differential includes septic emboli versus metastases.
HPI: Patient was seen in cardiology office 11/21/2023 and was noted to be confused, hypoxic, and hypotensive with SBP 80s mmHg and Pox 89-90%, so sent urgently to ER. He had recent admission to [facility] (discharged Sunday11/19/23) where he was started
on Talvey for refractory/resistant myeloma.
Plan:
Mental status continues to improve. 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
He is off pressors. Bp stable.
Resume lasix with 40 mg IV X 1 today and then likely resume outpt oral lasix 80 mg daily starting tomorrow November 24.
Continues on abrisentan and sildenafil for PTNH
Discussed with patient and daughter via phone
Progress Note - Carpenter Maintenance
Subjective
Date of Service: November 24, 2023
Pt seen and examined. No complaints. No chest pain or shortness of breath.
Objective
Labs:
11/23/23 03:24
11/24/23 04:39
Labs
Hgb 7.7 g/dL (13.0-18.0) L 11/23/23 03:24
Hct 23.4 % (39.0-52.0) L 11/23/23 03:24
Plt Count 117 10^3/uL (130-400) L 11/23/23 03:24
PT 19.4 Sec (11.4-14.6) H 11/21/23 15:30
INR 1.63 11/21/23 15:30
Sodium 137 mmol/L (135-145) 11/24/23 04:39
Potassium 4.1 mmol/L (3.5-5.1) 11/24/23 04:39
BUN 41 mg/dl (9-20) H 11/24/23 04:39
Creatinine 1.2 mg/dL (0.7-1.3) 11/24/23 04:39
Glucose 269 mg/dl (70-99) H 11/24/23 04:39
Troponins
11/21/23
15:30
Troponin I < 0.012
Vital Signs and I&O:
Vital Signs
Temp Pulse Resp BP Pulse Ox
97.6 F 86 19 111/78 97
11/24/23 02:37 11/24/23 07:19 11/24/23 07:19 11/24/23 07:19 11/24/23 07:19
Vital Signs
Temp Pulse Resp BP Pulse Ox
97.6 F 86 19 111/78 97
11/24/23 02:37 11/24/23 07:19 11/24/23 07:19 11/24/23 07:19 11/24/23 07:19
Intake & Output
11/22/23 11/23/23 11/24/23 11/25/23
06:59 06:59 06:59 06:59
Intake Total 100 / 100 1135 / 1135 1389.5 / 1389.5
Output Total 550 / 550 650 / 650 1000 / 1000
Balance -450 / -450 485 / 485 389.5 / 389.5
Physical Exam
Physical Exam
General: No acute distress, AAOX3
Neck: Negative JVD
Heart: Regular, Negative S3 positive S1/S2, Negative S4, No murmur
Lungs: CTA b/l, negative wheezes/rales/rhonchi
Abd: Positive BS, NT/ND, neg rebound/rigidity/guarding
Ext: Negative cyanosis/clubbing/edema
Neuro: nonfocal
[2023-11-24 07:54] LABS: Glucose - Point of Care 291 mg/dl (70-99)
--- NOTE | 2023-11-24 07:55 | W.PN.HOSP.TC ---
Today's Communication/Plan
-
cont to wean O2
consider blood transfusion
adjust insulin as pt comes off steroids (has 4 more bags due)
PT/OT
consider restarting diuretics
anticipate d/c to [place] hopefully Sunday
Assessment / Plan
Assessment / Plan
pt is a 73 year old male
pt seen by Dr. Sifuentes--agrees with acute rehab--shooting for Sunday
septic shock (likely not mounting much symptoms of infection secondary to his low immunity)--possibly due to diverticulitis (being treated prior to admission)--blood cultures negative, MRSA screen positive--no abscess on CT scan as determined by
IRAD/colorectal, the lesion in liver likely hemangioma not abscess so no drainage needed--off levophed--lasix on hold---Lung lesions septic emboli versus metastasis--back on augmentin--apprec ID, CRS, onc, IRAD
TME likely secondary infection plus neurotoxicity from chemo (Talvey)--resolved--apprec onc, neuro--no seizures on EEG--on high dose steroids per onc
Multiple myeloma-- diagnosed in November 2020--He follows with Dr. Aleman at [facility] and also with Dr. Isa Lewis--(He was maintained on Carfilzomib, Pomalidomide, and dexamethasone)--When he developed pulmonary artery hypertension he was switched to
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
currently--PLUS, there is some discussion about being on ACTEMRA for cytokine storm prevention--will defer to ID, onc
Acute hypoxic respiratory insufficiency--secondary to pneumonia versus atelectasis--IS--Continue antibiotics--CT scan chest/ab/pelvis shows Small left pleural effusion with associated left lower lobe atelectasis and/or pneumonia, slightly progressed
and Grossly stable scattered small bilateral upper lung zone nodules--Differential includes septic emboli versus metastases.
Hyponatremia--resolved
Pancytopenia secondary to multiple myeloma--noted--HGB down to 7.7, consider blood transfusion
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
Type 2 diabetes--Diet controlled now--blood sugars very elevated with steroids--will need adjustments--steroids could also be contributing to TME (although TME better and steroids still given)--added lantus AND novolog with meals
Pulmonary hypertension WHO Group 5 - on Ambrisentan and sildenafil
SCds for DVT Prophylaxis
Full CODE
updated and daughter.....11/22
other PMH:
Doubt ANAI--creat 1.4 (likely baseline)-- CKD since creat up since Aug 2023
Mild aortic stenosis
Essential Hypertension-Not on meds now
Dyslipidemia /Atherosclerosis-Red Yeast Rice
Right bundle branch block
Hepatic steatosis
History of prostate cancer status post prostatectomy and radiation-follows with Dr. Escalona--technically cleared with very low PSA--Continue Flomax
Pulmonary nodules
Vitamin B12 deficiency-on supplement
Diverticulosis
Hypoalbuminemia
Sciatica
Insomnia-continue Ambien
Ex-smoker

CT of the chest abdomen pelvis-acute diverticulitis of the mid sigmoid colon progressed. Resolving diverticulitis of the hepatic flexure. New 2.7 cm rim-enhancing subcapsular right hepatic lobe cystic lesion suggestive of an abscess. Findings
suggestive of splenic infarct. Small left pleural effusion associated left lower lobe atelectasis and/or pneumonia progress. Scattered small bilateral upper lobe zone nodules septic emboli versus metastasis.
Echo 11/05/2023-mildly reduced LV systolic function. Global hypokinesis. Paradoxical septal motion consistent with left bundle branch block. Flattened septum in systole consistent with RV pressure overload. Ejection fraction 40 to 45%. Pulmonary
pressure 30-35 mm Hg.
Anticipated Discharge: 24 - 48 hours
Subjective/Interval History
-
Date of Service: November 24, 2023
pt feels better--did not need to go back on pressors
Objective Data
-
Labs:
Laboratory Results
11/24/23
04:39
Sodium 137
Potassium 4.1
Chloride 113 H
Carbon Dioxide 21 L
BUN 41 H
Creatinine 1.2
Glucose 269 H
Calcium 7.5 L
Total Bilirubin 0.4
AST 18
ALT 24
Alkaline Phosphatase 117
Vital Signs:
max temp for 24 hours
11/23/23
19:31
Temp 98.5 F
Vital Signs
Temp Pulse Resp BP Pulse Ox
97.6 F 86 19 111/78 97
11/24/23 02:37 11/24/23 07:19 11/24/23 07:19 11/24/23 07:19 11/24/23 07:19
I&O
11/23/23 11/24/23 11/25/23
06:59 06:59 06:59
Intake Total 1135 / 1135 1389.5 / 1389.5
Output Total 650 / 650 1000 / 1000
Balance 485 / 485 389.5 / 389.5
Review of Systems
-
All other systems: Reviewed and negative
Physical Exam
-
General: Well Developed, Well Nourished, No Apparent Distress and Other (appears SOB with speaking)
HEENT: Normocephalic, Atraumatic and Oxygen
Respiratory: Clear to Auscultation and Decreased Breath Sounds; Negative Wheezes, Rales, Rhonchi or Crackles
Cardiac: Regular Rhythm and S1/S2; Negative Murmur
GI: Soft, Nontender, Nondistended and Normal Bowel Sounds
Musculoskeletal: No Clubbing and No Cyanosis; Negative No Edema (2+ LE edema bilaterally)
Skin: Warm
Neuro: Awake and Alert
Psych: Calm
[2023-11-24] MEDS: NOVOLOG FLEXPEN 12 UNITS SC ×3 (08:17→17:38)
[2023-11-24] MEDS: NOVOLOG FLEXPEN-MODERATE RESISTANCE 5 UNITS SC (08:18)
[2023-11-24] MEDS: LASIX 40 MG IV (09:30)
--- NOTE | 2023-11-24 10:34 | W.PN.ONC2 ---
Today's Communication / Plan
-
neurological symptoms resolved and vitals stable.
continue IV steroids and will start taper tomorrow if clinically remains stable
Impression
Impression
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
Rule out sepsis
Recent diverticular abscess
Refractory multiple myeloma with associated pancytopenia
Recent Pseudomonas bacteremia
Recent splenic hematoma
Pulmonary hypertension
History of B12 deficiency
History of prostate carcinoma
Plan
Plan
neurologically improved 11/22 and at baseline today. Vital signs improving now on pressors and afebrile.
cont steroids - dex 10 IV q6 today with plan to start tapering tomorrow by 10 mg every 24-48 hours as long as symptoms do not recur. will go to 10 mg q8 tomorrow.
follow clinically
neurology following
CBC stable. transfuse for hgb < 7.0 g/dl, plts < 10K
myeloma panel pending
Subjective/Objective
Chief Complaint
ICANS/CRS 2/2 to bispecific therapy for MM
Subjective
pt's neurology symptoms resolved yesterday after steroid initiation and remains at baseline. hemodynamics also improving, weaned on levophed this am. Denies fevers, chills, word finding difficulty, lethargy.
Vital Signs:
Vital Signs
Temp Pulse Resp BP Pulse Ox
97.3 F 84 19 101/52 94
11/24/23 07:58 11/24/23 09:30 11/24/23 07:19 11/24/23 09:30 11/24/23 08:02
Lab Results:
Laboratory Data
WBC 4.4 10^3/uL (4.8-10.8) L 11/23/23 03:24
Hgb 7.7 g/dL (13.0-18.0) L 11/23/23 03:24
Plt Count 117 10^3/uL (130-400) L 11/23/23 03:24
PT 19.4 Sec (11.4-14.6) H 11/21/23 15:30
INR 1.63 11/21/23 15:30
eGFR > 60.00 11/24/23 04:39
Physical Exam
HEENT: No Jaundice
Cardiology: Normal Sinus Rhythm
Pulmonary: Clear
Extremities: No Edema
Neuro: Non Focal
Review of Systems
Review of Systems
Constitutional: Denies Fever
Respiratory: Denies Dyspnea
Neurological: Reports Other (denies confusion); Denies Headache
--- NOTE | 2023-11-24 12:04 | PTCARENOTE ---
Assumed care of Pt at shift change; Pt resting comfortably in bed with BiPAP mask on. Small liquid BM in bed - cleaned up and assisted with breakfast. Pt confused at times, repeating questions, slow processing/slow speech. Pt's daughter
confirmed Pt is not confused at baseline. +3/4 pitting edema of b/l LE. Flowers draining clear yellow urine. NSR on monitor; BP stable; HR ~ 70's; Will continue to monitor and assess.
[2023-11-24 12:19] LABS: Glucose - Point of Care 407 mg/dl (70-99)
[2023-11-24 12:41] LABS: Glucose 346 mg/dl (70-99)
[2023-11-24] MEDS: NOVOLOG FLEXPEN-MODERATE RESISTANCE 7 UNITS SC (12:44)
[2023-11-24 16:48] LABS: Glucose - Point of Care 478 mg/dl (70-99)
[2023-11-24 17:31] LABS: Glucose 427 mg/dl (70-99)
[2023-11-24] MEDS: FLOMAX 0.400000000000000022 MG PO (17:36)
[2023-11-24] MEDS: NOVOLOG FLEXPEN-MODERATE RESISTANCE 11 UNITS SC (17:38)
--- NOTE | 2023-11-24 18:03 | W.PN.UPDATE ---
Update Note
Progress Note Update
Call with high blood sugar of 4 12:27 time blood sugar 346 got 19 units on a moderate scale Dr. Bonilla has increased the Lantus dosing from 20 to 24 units for tonight will place on high resistance scale and discontinue moderate go ahead and give
23 units of aspartame now
[2023-11-24 19:52] LABS: Glucose - Point of Care 491 mg/dl (70-99)
[2023-11-24] MEDS: AMBIEN 5 MG PO (20:16)
[2023-11-24] MEDS: NOVOLOG FLEXPEN 20 UNITS SC (20:17)
[2023-11-24 22:32] LABS: Glucose 418 mg/dl (70-99)
[2023-11-24] MEDS: LANTUS 0.239999999999999991 UNITS SC (22:41)
[2023-11-24 22:47] LABS: Glucose - Point of Care 365 mg/dl (70-99)
--- NOTE | 2023-11-24 23:22 | PTCARENOTE ---
1939 2hr recheck of accucheck d/t being high earlier resulted 491. Stat glucose 418. Shereen CHRISTIANSEN TT'd and order entered for 20units Novolog. Pt received med as ordered.
2233 2 hr recheck of accucheck resulted 365. Due for scheduled Lantus 24 units. Shereen CHRISTIANSEN TT'd and updated. Will give scheduled Lantus 24 units and recheck accucheck in 2 hrs. Pt currently resting comfortably.
[2023-11-25] VITALS (16 sets, daily range): BP systolic 104–143; BP diastolic 45–96; BMI 31.4
[2023-11-25 00:48] LABS: Glucose - Point of Care 320 mg/dl (70-99)
[2023-11-25] MEDS: NOVOLOG FLEXPEN 8 UNITS SC (01:13)
--- NOTE | 2023-11-25 01:15 | PTCARENOTE ---
0030 accucheck 320. Shereen CHRISTIANSEN TT'd and updated. Order entered for 8 units Novolog. Pt received med as ordered. Will recheck accucheck at 0300.
[2023-11-25 03:21] LABS: Glucose - Point of Care 290 mg/dl (70-99)
[2023-11-25 05:02] LABS: Hematocrit 21.9 % (39.0-52.0); Hemoglobin 7.5 g/dL (13.0-18.0); Mean Corp Hgb Conc. 34.2 g/dL (33.0-37.0); Mean Corpuscular Hgb 33.6 pg (27.0-31.0); Mean Corpuscular Volume 98.2 fL (80.0-94.0); Mean Platelet Volume 11.9 fL (7.4-10.4); Platelet Count 128 10^3/uL (130-400); Red Blood Cell Count 2.23 10^6/uL (4.70-6.10); White Blood Cell Count 3.9 10^3/uL (4.8-10.8)
[2023-11-25 05:09] LABS: ALT (SGPT) 34 U/L (0-50); AST (SGOT) 19 U/L (17-59); Albumin 2.6 g/dl (3.5-5.0); Alkaline Phosphatase 115 U/L (38-126); Blood Urea Nitrogen 48 mg/dl (9-20); Calcium 7.9 mg/dl (8.4-10.2); Carbon Dioxide 21 mmol/L (22-30); Chloride 112 mmol/L (98-107); Estimated Creatinine Clearance 63 ml/min; Glucose 251 mg/dl (70-99); Magnesium 2.2 mg/dl (1.6-2.3); Potassium 4.4 mmol/L (3.5-5.1); Sodium 137 mmol/L (135-145); Total Bilirubin 0.4 mg/dl (0.2-1.3); Total Protein 8.3 g/dl (6.3-8.2); eGFR > 60.00
[2023-11-25] MEDS: DECADRON 52.5 MG IV (05:09)
[2023-11-25] MEDS: MUCINEX 600 MG PO ×2 (08:19→20:02)
[2023-11-25] MEDS: AUGMENTIN 875 MG/125 MG 1 TABLET PO ×2 (08:19→20:02)
[2023-11-25] MEDS: ZOVIRAX 400 MG PO ×2 (08:19→20:02)
[2023-11-25] MEDS: VITAMIN B-12 1000 MCG PO (08:19)
[2023-11-25] MEDS: VITAMIN D3 (cholecalciferol) 25 MCG PO (08:19)
[2023-11-25] MEDS: REVATIO 20 MG PO ×3 (08:19→20:03)
[2023-11-25] MEDS: HEPARIN 5000 UNITS SC ×2 (08:19→20:02)
[2023-11-25] MEDS: NON-FORMULARY ITEM 5 MG PO (08:20)
--- NOTE | 2023-11-25 08:22 | W.PN.HOSP.TC ---
Today's Communication/Plan
-
transfuse 1 unit pRBC for HGB 7.5
OK to shower
restart diuretics
PT/OT
hopeful [place] tomorrow?
Assessment / Plan
Assessment / Plan
pt is a 73 year old male
pt seen by Dr. Sifuentes--agrees with acute rehab--shooting for Sunday
septic shock (likely not mounting much symptoms of infection secondary to his low immunity)--possibly due to diverticulitis (being treated prior to admission)--blood cultures negative, MRSA screen positive--no abscess on CT scan as determined by
IRAD/colorectal, the lesion in liver likely hemangioma not abscess so no drainage needed--off levophed--lasix to restart--Lung lesions septic emboli versus metastasis--back on augmentin--apprec ID, CRS, onc, IRAD
TME likely secondary infection plus neurotoxicity from chemo (Talvey)--resolved--apprec onc, neuro--no seizures on EEG--on high dose steroids per onc--taper once high dose treatment finished
Multiple myeloma-- diagnosed in November 2020--He follows with Dr. Aleman at [facility] and also with Dr. Isa Lewis--(He was maintained on Carfilzomib, Pomalidomide, and dexamethasone)--When he developed pulmonary artery hypertension he was switched to
Tecvayli--Currently on Talvey started last admission at [facility] (most recent admission, d/c from there 2 days [employer] here)--Patient is also maintained on acyclovir prophylaxis along with Bactrim prophylaxis, will defer to ID and onc, Bactrim is being held
currently--PLUS, there is some discussion about being on ACTEMRA for cytokine storm prevention--will defer to ID, onc
Acute hypoxic respiratory insufficiency--secondary to pneumonia versus atelectasis--IS--Continue antibiotics--CT scan chest/ab/pelvis shows Small left pleural effusion with associated left lower lobe atelectasis and/or pneumonia, slightly progressed
and Grossly stable scattered small bilateral upper lung zone nodules--Differential includes septic emboli versus metastases.
Hyponatremia--resolved
Pancytopenia secondary to multiple myeloma--noted--HGB down to 7.7, consider blood transfusion
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
Type 2 diabetes--Diet controlled--blood sugars very elevated with steroids--will need adjustments--steroids could also be contributing to TME (although TME better and steroids still given)--added lantus AND novolog with meals and adjust from there
Pulmonary hypertension WHO Group 5 - on Ambrisentan and sildenafil
SCds for DVT Prophylaxis
Full CODE
updated and daughter.....11/22
other PMH:
Doubt ANAI--creat 1.4 (likely baseline)-- CKD since creat up since Aug 2023
Mild aortic stenosis
Essential Hypertension-Not on meds now
Dyslipidemia /Atherosclerosis-Red Yeast Rice
Right bundle branch block
Hepatic steatosis
History of prostate cancer status post prostatectomy and radiation-follows with Dr. Escalona--technically cleared with very low PSA--Continue Flomax
Pulmonary nodules
Vitamin B12 deficiency-on supplement
Diverticulosis
Hypoalbuminemia
Sciatica
Insomnia-continue Ambien
Ex-smoker

CT of the chest abdomen pelvis-acute diverticulitis of the mid sigmoid colon progressed. Resolving diverticulitis of the hepatic flexure. New 2.7 cm rim-enhancing subcapsular right hepatic lobe cystic lesion suggestive of an abscess. Findings
suggestive of splenic infarct. Small left pleural effusion associated left lower lobe atelectasis and/or pneumonia progress. Scattered small bilateral upper lobe zone nodules septic emboli versus metastasis.
Echo 11/05/2023-mildly reduced LV systolic function. Global hypokinesis. Paradoxical septal motion consistent with left bundle branch block. Flattened septum in systole consistent with RV pressure overload. Ejection fraction 40 to 45%. Pulmonary
pressure 30-35 mm Hg.
Anticipated Discharge: 24 - 48 hours
Subjective/Interval History
-
Date of Service: November 25, 2023
pt wants to shower--off O2--still seems winded
Objective Data
-
Labs:
Laboratory Results
11/24/23 11/25/23
19:48 04:07
WBC 3.9 L
Hgb 7.5 L
Hct 21.9 L
Plt Count 128 L
Sodium 137
Potassium 4.4
Chloride 112 H
Carbon Dioxide 21 L
BUN 48 H
Creatinine 1.1
Glucose 418 H 251 H
Calcium 7.9 L
Total Bilirubin 0.4
AST 19
ALT 34
Alkaline Phosphatase 115
Vital Signs:
max temp for 24 hours
11/24/23
23:00
Temp 98.4 F
Vital Signs
Temp Pulse Resp BP Pulse Ox
97.8 F 67 19 124/72 93
11/25/23 03:00 11/25/23 06:00 11/25/23 06:00 11/25/23 04:00 11/25/23 00:00
I&O
11/24/23 11/25/23 11/26/23
06:59 06:59 06:59
Intake Total 1389.5 / 1389.5 104 / 104
Output Total 1000 / 1000
Balance 389.5 / 389.5 104 / 104
Review of Systems
-
All other systems: Reviewed and negative
Physical Exam
-
General: Well Developed, Well Nourished and No Apparent Distress
HEENT: Normocephalic, Atraumatic and Oxygen
Respiratory: Clear to Auscultation and Other (winded with talking); Negative Wheezes or Rhonchi
Cardiac: Regular Rhythm and S1/S2; Negative Murmur
GI: Soft, Nontender, Nondistended and Normal Bowel Sounds
Musculoskeletal: No Clubbing, No Cyanosis and No Edema
Neuro: Awake
Psych: Calm
[2023-11-25 08:30] LABS: Glucose - Point of Care 272 mg/dl (70-99)
[2023-11-25] MEDS: NOVOLOG FLEXPEN 12 UNITS SC (09:03)
[2023-11-25] MEDS: NOVOLOG FLEXPEN-HIGH RESISTANCE 7 UNITS SC (09:03)
--- NOTE | 2023-11-25 09:15 | W.PN.CARDCBS ---
Today's Communication / Plan
-
Lasix 20 mg IV x 1 after transfusion.
Oral Lasix resumed by primary service 80 mg daily.
Heart rate and blood pressure stable off pressors
Impression / Plan
-
.
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 Ginger Lal
PCP: Dr. Hunter
Impression:
-Hypoxia, improved
-Hypotension, improved
-Confusion, improved
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
-Admission to [facility], discharged 11/19/2023 after initiation of Talvey therapy for refractory myeloma
-Active Multiple myeloma
-Diverticular abscess, treated with Augmentin, with hx diverticulitis 2016
-Concern for septic emboli of lungs by review of records from [place]
-Pulmonary hypertension and chronic RV dysfunction/heart failure with preserved ejection fraction
-Mild aortic stenosis
-Hypertension
-Dyslipidemia on red yeast rice
-CT imaging noting coronary atherosclerosis without history of NM
-Aortic atherosclerosis without aneurysm
-Right bundle branch block
-Type 2 diabetes mellitus
-Fatty liver infiltration
-Hx prostate cancer status post prostatectomy
-Degenerative joint disease of lumbar spine
-Hyponatremia
Echocardiogram 08/30/2023: Ejection fraction 55 to 60%, D-shaped septum in systole and diastole consistent with RV pressure and volume overload, mild aortic stenosis with mean gradient of 11 mmHg aortic valve area 1.5 cm�, mild TR with PA systolic of
55 mmHg
Echo 11/05/2023: Mildly reduced left ventricular systolic function. Global hypokinesis. Abnormal (paradoxical) septal motion consistent with left bundle branch block. Flattened septum in systole consistent with RV pressure overload. Left ventricular
ejection fraction is 40-45 %. Trace mitral regurgitation. Aortic valve peak/mean gradients are 23/15 mmHg. MARYELLEN 1.2 cm2. Mild aortic stenosis. Estimated pulmonary artery pressure of 30-35 mmHg.
Right heart catheterization 09/13/2023
Hemodynamics (mmHg):
RA (m) : 13
RV (s/d,m) : 77/12, 17
PA (s/d, m) : 77/23, 48
PCWP (m) : 18
Cardiac Output : 5.2 L/min
Cardiac Index : 2.5 L/min/m-2
Systemic vascular resistance: 13.5 Wood units or 1077 [id number](-5)
Pulmonary vascular resistance: 5.8 Wood units or 461 [id number](-5)
CONCLUSION:
1.� Postcapillary pulmonary hypertension with hemodynamics most consistent with group 2 and group 5 with mean PA pressure of 48 mmHg, pulmonary capillary wedge pressure 18 mmHg and PVR 5.8 Wood units
Venous u/s neg for DVT
Chest xray Nov 21 2023: Stable small left pleural effusion with associated atelectasis and/or pneumonia.
CT chest/abd/pelvis Nov 21 2023:
1. Acute diverticulitis of the mid sigmoid colon, progressed. Resolving diverticulitis of the hepatic flexure.
2. New 2.7 cm rim-enhancing subcapsular right hepatic lobe cystic lesion highly suggestive of abscess.
3. Findings suggesting splenic infarcts, new from prior.
4. Small left pleural effusion with associated left lower lobe atelectasis and/or pneumonia, slightly progressed.
5. Grossly stable scattered small bilateral upper lung zone nodules. Differential includes septic emboli versus metastases.
HPI: Patient was seen in cardiology office 11/21/2023 and was noted to be confused, hypoxic, and hypotensive with SBP 80s mmHg and Pox 89-90%, so sent urgently to ER. He had recent admission to [facility] (discharged Sunday11/19/23) where he was started
on Talvey for refractory/resistant myeloma.
Plan:
Mental status improved. 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
Steroid taper as per oncology.
Blood pressure remained stable off pressors
Weight is up since admission. Received lasix with 40 mg IV X 1 November 23.
Receiving transfusion and will give additional Lasix 20 mg IV after transfusion.
Likely resume outpt oral lasix 80 mg daily.
Continues on abrisentan and sildenafil for PTNH
Possible discharge to [facility] [place] rehab next 24 hours
Discussed with patient and daughter via phone in the last 24 hours
Progress Note - Gasoline Truck Crane Operator
Subjective
Date of Service: November 25, 2023
Pt seen and examined. No complaints. No chest pain or shortness of breath.
Objective
Labs:
11/25/23 04:07
11/25/23 04:07
Labs
Hgb 7.5 g/dL (13.0-18.0) L 11/25/23 04:07
Hct 21.9 % (39.0-52.0) L 11/25/23 04:07
Plt Count 128 10^3/uL (130-400) L 11/25/23 04:07
PT 19.4 Sec (11.4-14.6) H 11/21/23 15:30
INR 1.63 11/21/23 15:30
Sodium 137 mmol/L (135-145) 11/25/23 04:07
Potassium 4.4 mmol/L (3.5-5.1) 11/25/23 04:07
BUN 48 mg/dl (9-20) H 11/25/23 04:07
Creatinine 1.1 mg/dL (0.7-1.3) 11/25/23 04:07
Glucose 251 mg/dl (70-99) H 11/25/23 04:07
Vital Signs and I&O:
Vital Signs
Temp Pulse Resp BP Pulse Ox
97.8 F 67 19 124/72 93
11/25/23 03:00 11/25/23 06:00 11/25/23 06:00 11/25/23 04:00 11/25/23 00:00
Vital Signs
Temp Pulse Resp BP Pulse Ox
97.8 F 67 19 124/72 93
11/25/23 03:00 11/25/23 06:00 11/25/23 06:00 11/25/23 04:00 11/25/23 00:00
Intake & Output
11/23/23 11/24/23 11/25/23 11/26/23
06:59 06:59 06:59 06:59
Intake Total 1135 / 1135 1389.5 / 1389.5 104 / 104
Output Total 650 / 650 1000 / 1000
Balance 485 / 485 389.5 / 389.5 104 / 104
Physical Exam
Physical Exam
General: No acute distress, AAOX3
Neck: Negative JVD
Heart: Regular, Negative S3 positive S1/S2, Negative S4, No murmur
Lungs: CTA b/l, negative wheezes/rales/rhonchi
Abd: Positive BS, NT/ND, neg rebound/rigidity/guarding
Ext: Negative cyanosis/clubbing/edema
Neuro: nonfocal
[2023-11-25] MEDS: LASIX 80 MG PO (09:45)
--- NOTE | 2023-11-25 10:04 | W.PN.ONC2 ---
Today's Communication / Plan
-
- neuro exam unremarkable and vitals stable
- decrease dex to 10mg q8 today with taper by 10 mg every 24 hours over next 3 days assuming no change in clinical status.
Impression
Impression
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
Rule out sepsis
Recent diverticular abscess
Refractory multiple myeloma with associated pancytopenia
Recent Pseudomonas bacteremia
Recent splenic hematoma
Pulmonary hypertension
History of B12 deficiency
History of prostate carcinoma
Plan
Plan
neurological symptoms improved 11/22 after steroid initiation and remain at baseline today. Pressors stopped 11/23 am and vitals remain stable, afebrile.
cont steroids - taper to dex 10 mg q8 today and if no change in clinical status, decrease to 10 mg q12 tomorrow, then 10 mg daily on 11/26, then stop 11/27.
neurology following
1 unit pRBCs ordered today for hgb 7.5 g/dl. CBC daily.
myeloma panel pending
continue acyclovir ppx.
Subjective/Objective
Chief Complaint
MM, ICANS/CRS due to bispecific therapy
Subjective
pts mental status remains at baseline with no recurrent lethargy, confusion. Vitals continue to improve off pressors, remains afebrile, no complaints this am.
Vital Signs:
Vital Signs
Temp Pulse Resp BP Pulse Ox
97.8 F 95 19 143/96 93
11/25/23 03:00 11/25/23 09:45 11/25/23 06:00 11/25/23 09:45 11/25/23 00:00
Lab Results:
Laboratory Data
WBC 3.9 10^3/uL (4.8-10.8) L 11/25/23 04:07
Hgb 7.5 g/dL (13.0-18.0) L 11/25/23 04:07
Plt Count 128 10^3/uL (130-400) L 11/25/23 04:07
PT 19.4 Sec (11.4-14.6) H 11/21/23 15:30
INR 1.63 11/21/23 15:30
eGFR > 60.00 11/25/23 04:07
Physical Exam
HEENT: Moist Mucous Membranes; No Jaundice
Cardiology: Normal Sinus Rhythm
Pulmonary: Clear; No Rhonchi
GI: Soft
Extremities: No Edema
Neuro: Non Focal
Review of Systems
Review of Systems
Constitutional: Denies Fever
Respiratory: Denies Dyspnea or Cough
Cardiovascular: Denies Chest Pain
Neurological: Denies Headache
Orders
Orders
Orders From Last 24 Hours
11/25/23 14:00
Dexamethasone Sod Phosphate [Decadron] 10 mg IV Q8H
[2023-11-25 12:33] LABS: Glucose - Point of Care 459 mg/dl (70-99)
[2023-11-25 13:00] LABS: Glucose 425 mg/dl (70-99)
[2023-11-25] MEDS: NOVOLOG FLEXPEN-HIGH RESISTANCE 14 UNITS SC ×2 (13:03→17:13)
[2023-11-25] MEDS: NOVOLOG FLEXPEN 14 UNITS SC (13:03)
[2023-11-25] MEDS: LASIX 20 MG IV (14:15)
[2023-11-25] MEDS: DECADRON 10 MG IV ×2 (14:15→21:23)
--- NOTE | 2023-11-25 16:37 | PTCARENOTE ---
Placed back on 2L O2 in AM due to low saturation ~ 89%; 1 unit PRBC's ordered for hgb 7.5; SpO2 improved s/p blood transfusion, Pt placed back on RA with steady sat of 94-96%; Continues to have elevated blood sugars requiring stat glucose labs -
Hospitalist made aware, adjustments made to insulin regimen. Will continue to monitor and assess.
[2023-11-25 16:49] LABS: Glucose - Point of Care 512 mg/dl (70-99)
[2023-11-25 17:09] LABS: Glucose 464 mg/dl (70-99)
[2023-11-25] MEDS: NOVOLOG FLEXPEN 20 UNITS SC ×2 (17:13→21:22)
[2023-11-25] MEDS: FLOMAX 0.400000000000000022 MG PO (17:13)
[2023-11-25] MEDS: AMBIEN 5 MG PO (20:02)
[2023-11-25 20:19] LABS: Glucose - Point of Care 493 mg/dl (70-99)
[2023-11-25 21:01] LABS: Glucose 463 mg/dl (70-99)
[2023-11-25] MEDS: LANTUS 0.299999999999999989 UNITS SC (21:23)
--- NOTE | 2023-11-25 21:32 | PTCARENOTE ---
Accucheck result at 1999 493. Stat glucose 463. Fiona CHRISTIANSEN TT'd and made aware. Order entered for 20 units Novolog and will give scheduled 34 units Lantus. Pt currently resting in bed. Call bal remains within reach. Will continue to monitor.
[2023-11-25] MEDS: BACTROBAN 2% OINTMENT 1 APPLIC NASAL (22:31)
[2023-11-25 23:40] LABS: Glucose - Point of Care 387 mg/dl (70-99)
[2023-11-25] MEDS: NOVOLOG FLEXPEN 15 UNITS SC (23:58)
[2023-11-26] VITALS (10 sets, daily range): BP systolic 108–132; BP diastolic 56–71; PULSE 81–83; O2SAT 94; BMI 30.2
--- NOTE | 2023-11-26 00:07 | PTCARENOTE ---
Recheck of accucheck 387. Chanelle CHRISTIANSEN tt'd and order entered for 15units Novolog and given. Next accucheck at 0300.
[2023-11-26 03:11] LABS: Glucose - Point of Care 271 mg/dl (70-99)
[2023-11-26 04:34] LABS: Hematocrit 23.3 % (39.0-52.0); Hemoglobin 7.8 g/dL (13.0-18.0); Mean Corp Hgb Conc. 33.5 g/dL (33.0-37.0); Mean Corpuscular Hgb 32.4 pg (27.0-31.0); Mean Corpuscular Volume 96.7 fL (80.0-94.0); Mean Platelet Volume 10.8 fL (7.4-10.4); Platelet Count 119 10^3/uL (130-400); Red Blood Cell Count 2.41 10^6/uL (4.70-6.10); Red Cell Dist. Width 19.9 % (11.5-14.5); White Blood Cell Count 3.6 10^3/uL (4.8-10.8)
[2023-11-26 04:55] LABS: Blood Urea Nitrogen 53 mg/dl (9-20); Calcium 7.9 mg/dl (8.4-10.2); Carbon Dioxide 23 mmol/L (22-30); Chloride 110 mmol/L (98-107); Estimated Creatinine Clearance 62 ml/min; Glucose 225 mg/dl (70-99); Magnesium 1.9 mg/dl (1.6-2.3); Potassium 4.3 mmol/L (3.5-5.1); Sodium 135 mmol/L (135-145); eGFR > 60.00
[2023-11-26] MEDS: DECADRON 10 MG IV ×3 (05:09→22:31)
[2023-11-26] MEDS: FLUSH (NSS) 2 FLUSH IV (05:10)
[2023-11-26] MEDS: LASIX 80 MG PO (08:06)
[2023-11-26] MEDS: AUGMENTIN 875 MG/125 MG 1 TABLET PO ×2 (08:06→20:47)
[2023-11-26] MEDS: VITAMIN D3 (cholecalciferol) 25 MCG PO (08:06)
[2023-11-26] MEDS: MUCINEX 600 MG PO ×2 (08:06→20:46)
[2023-11-26] MEDS: BACTRIM DS 800 MG/160 MG 1 TABLET PO (08:06)
[2023-11-26] MEDS: HEPARIN 5000 UNITS SC ×2 (08:08→20:45)
[2023-11-26] MEDS: REVATIO 20 MG PO ×3 (08:09→20:51)
[2023-11-26] MEDS: NON-FORMULARY ITEM 5 MG PO (08:09)
[2023-11-26] MEDS: VITAMIN B-12 1000 MCG PO (08:09)
[2023-11-26] MEDS: BACTROBAN 2% OINTMENT 1 APPLIC NASAL ×2 (08:09→20:44)
[2023-11-26] MEDS: ZOVIRAX 400 MG PO ×2 (08:09→20:48)
[2023-11-26 08:18] LABS: Glucose - Point of Care 250 mg/dl (70-99)
[2023-11-26] MEDS: NOVOLOG FLEXPEN-HIGH RESISTANCE 7 UNITS SC (08:21)
[2023-11-26] MEDS: NOVOLOG FLEXPEN 20 UNITS SC (08:22)
--- NOTE | 2023-11-26 08:43 | PN.DE.MGMTRT ---
Insulin Management
- -
11/26/2023: Diabetes Management Consult
73 year old male who presented with increased fatigue and weakness, hypotension and confusion x 2 days on 11/20, diabetes eval is requested on 11/25.
PMH: HTN, HFpEF, RBBB, pulmonary HTN, mild , multiple myeloma, CKD 3B, obesity, prostate cancer s/p Prostatectomy and radiation, B12 deficiency, diverticulitis, sciatica, insomnia, hepatic steatosis, hyponatremia, Pseudomonas bacteremia, renal
stones and T2DM. A1C 7.3% on admission, Cr 1.1, eGFR>60
Pt awake, A/O x3, sitting up in chair, offers no complaints, able to discuss diabetes management.
Reports he was taking Metformin 1000mg BID and Glipizide 5mg BID, both were put on hold while at [place].
Current diabetes regimen includes: Lantus 30 nits @ HS, NovoLog 20 units AC and high corrective with meals.
Pt was started on high dose IV steroids- Dexa 10mg Q8hrs, contributing to Hyperglycemia.
Glucose has trended up to 512, requiring 4 to 14 units of corrective insulin.
Will change Lantus dose to BID--> Lantus to 30 units BID, 1st dose NOW. Increase NovoLog to 25 units AC and change to moderate corrective with meals.
Pt states he has a glucose monitor (Skuid) at home and has been monitoring his sugars daily.
Will follow and adjust further if needed.
Diabetes History
- -
Type of Diabetes: 2
Pre-Admission Diabetes Regimen
11/26/23
04:02
Creatinine 1.1
Lab Results
Hemoglobin A1c 7.3 % (4.0-5.6) H 11/23/23 03:24
Insulin Pump Settings
IP Diabetes Regimen
11/25/23 11/25/23 11/25/23
12:17 12:40 16:32
Glucose 425 H
POC Glucose 459 H* 512 H*
11/25/23 11/25/23 11/25/23
16:44 20:07 20:36
Glucose 464 H* 463 H*
POC Glucose 493 H*
11/25/23 11/26/23 11/26/23
23:29 03:00 04:02
Glucose 225 H
POC Glucose 387 H 271 H
11/26/23
08:06
Glucose
POC Glucose 250 H
Meal type: Dinner
Meal type: Breakfast
Amount consumed: 100%
Amount consumed: 100%
Patient Education
--- NOTE | 2023-11-26 08:45 | PTCARENOTE ---
Patient received from night time nanny. Patient resting comfortably in bed. AAO, FELICIA. Neuro checks fine. No events noted over night. No complaints of pain at this time. Accuchecks much better and getting closer to normal range overnight. Plan to
go to [facility] today pending PT eval and recommendation or downgrade at minimum. Call bal in reach.
--- NOTE | 2023-11-26 08:51 | W.PN.CARDCBS ---
Today's Communication / Plan
-
Cont oral Lasix
Outpt cardiac follow up
Impression / Plan
-
.
Primary Manager Ccu: Dr. Ginger Lal
PCP: Dr. Hunter
Impression:
-Hypoxia, improved
-Hypotension, improved
-Confusion, improved
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
-Admission to [facility], discharged 11/19/2023 after initiation of Talvey therapy for refractory myeloma
-Active Multiple myeloma
-Diverticular abscess, treated with Augmentin, with hx diverticulitis 2016
-Concern for septic emboli of lungs by review of records from [place]
-Pulmonary hypertension and chronic RV dysfunction/heart failure with preserved ejection fraction
-Mild aortic stenosis
-Hypertension
-Dyslipidemia on red yeast rice
-CT imaging noting coronary atherosclerosis without history of VA
-Aortic atherosclerosis without aneurysm
-Right bundle branch block
-Type 2 diabetes mellitus
-Fatty liver infiltration
-Hx prostate cancer status post prostatectomy
-Degenerative joint disease of lumbar spine
-Hyponatremia
Echocardiogram 08/30/2023: Ejection fraction 55 to 60%, D-shaped septum in systole and diastole consistent with RV pressure and volume overload, mild aortic stenosis with mean gradient of 11 mmHg aortic valve area 1.5 cm�, mild TR with PA systolic of
55 mmHg
Echo 11/05/2023: Mildly reduced left ventricular systolic function. Global hypokinesis. Abnormal (paradoxical) septal motion consistent with left bundle branch block. Flattened septum in systole consistent with RV pressure overload. Left ventricular
ejection fraction is 40-45 %. Trace mitral regurgitation. Aortic valve peak/mean gradients are 23/15 mmHg. MARYELLEN 1.2 cm2. Mild aortic stenosis. Estimated pulmonary artery pressure of 30-35 mmHg.
Right heart catheterization 09/13/2023
Hemodynamics (mmHg):
RA (m) : 13
RV (s/d,m) : 77/12, 17
PA (s/d, m) : 77/23, 48
PCWP (m) : 18
Cardiac Output : 5.2 L/min
Cardiac Index : 2.5 L/min/m-2
Systemic vascular resistance: 13.5 Wood units or 1077 [id number](-5)
Pulmonary vascular resistance: 5.8 Wood units or 461 [id number](-5)
CONCLUSION:
1.� Postcapillary pulmonary hypertension with hemodynamics most consistent with group 2 and group 5 with mean PA pressure of 48 mmHg, pulmonary capillary wedge pressure 18 mmHg and PVR 5.8 Wood units
Venous u/s neg for DVT
Chest xray Nov 21 2023: Stable small left pleural effusion with associated atelectasis and/or pneumonia.
CT chest/abd/pelvis Nov 21 2023:
1. Acute diverticulitis of the mid sigmoid colon, progressed. Resolving diverticulitis of the hepatic flexure.
2. New 2.7 cm rim-enhancing subcapsular right hepatic lobe cystic lesion highly suggestive of abscess.
3. Findings suggesting splenic infarcts, new from prior.
4. Small left pleural effusion with associated left lower lobe atelectasis and/or pneumonia, slightly progressed.
5. Grossly stable scattered small bilateral upper lung zone nodules. Differential includes septic emboli versus metastases.
HPI: Patient was seen in cardiology office 11/21/2023 and was noted to be confused, hypoxic, and hypotensive with SBP 80s mmHg and Pox 89-90%, so sent urgently to ER. He had recent admission to [facility] (discharged Sunday11/19/23) where he was started
on Talvey for refractory/resistant myeloma.
Plan:
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
Steroid taper as per oncology.
HR and blood pressure remain stable
Weight is improved. Cont Lasix 80 mg daily.
Continues on abrisentan and sildenafil for PTNH
Possible discharge to [facility] next 24 hours
Outpt follow up with Dr Miles.
Please recall if needed.
Progress Note - Manager Ccu
Subjective
Date of Service: November 26, 2023
Pt seen and examined. No complaints. No chest pain or shortness of breath.
Objective
Labs:
11/26/23 04:02
11/26/23 04:02
Labs
Hgb 7.8 g/dL (13.0-18.0) L 11/26/23 04:02
Hct 23.3 % (39.0-52.0) L 11/26/23 04:02
Plt Count 119 10^3/uL (130-400) L 11/26/23 04:02
PT 19.4 Sec (11.4-14.6) H 11/21/23 15:30
INR 1.63 11/21/23 15:30
Sodium 135 mmol/L (135-145) 11/26/23 04:02
Potassium 4.3 mmol/L (3.5-5.1) 11/26/23 04:02
BUN 53 mg/dl (9-20) H 11/26/23 04:02
Creatinine 1.1 mg/dL (0.7-1.3) 11/26/23 04:02
Glucose 225 mg/dl (70-99) H 11/26/23 04:02
Vital Signs and I&O:
Vital Signs
Temp Pulse Resp BP Pulse Ox
98.0 F 69 15 128/64 95
11/26/23 03:19 11/26/23 08:06 11/26/23 06:00 11/26/23 08:06 11/26/23 04:40
Vital Signs
Temp Pulse Resp BP Pulse Ox
98.0 F 69 15 128/64 95
11/26/23 03:19 11/26/23 08:06 11/26/23 06:00 11/26/23 08:06 11/26/23 04:40
Intake & Output
11/24/23 11/25/23 11/26/23 11/27/23
06:59 06:59 06:59 06:59
Intake Total 1389.5 / 1389.5 104 / 104 1070 / 1070
Output Total 1000 / 1000
Balance 389.5 / 389.5 104 / 104 1070 / 1070
Physical Exam
Physical Exam
General: No acute distress, AAOX3
Neck: Negative JVD
Heart: Regular, Negative S3 positive S1/S2, Negative S4, No murmur
Lungs: CTA b/l, negative wheezes/rales/rhonchi
Abd: Positive BS, NT/ND, neg rebound/rigidity/guarding
Ext: Negative cyanosis/clubbing/edema
Neuro: nonfocal
--- NOTE | 2023-11-26 09:02 | CM ---
Addendum entered by Makayla Sr 11/26/23 15:07:
Plan for discharge home when medically appropriate, CM updated patient and plan is for discharge home with [facility] when medically appropriate.
Addendum entered by Makayla Sr 11/26/23 11:26:
Therapy recommending home with [facility]. Byron called to state that patient should go home. CM called to patient to review discharge planning needs. Patient very concerned about patient ability to be able to handle the home care. Patient
reluctant to have patient come home, due to frequent hospitalizations recently but would accept [facility], liaison made aware. CM will review with physician. CM will continue to follow for discharge planning needs.
Plan; home with [facility]
Original Note:
Patient seen at bedside with physician. Patient anticipates possible transition to [facility]. Patient for PT/OT to see him for updated notes. Per [facility] possible Bed pending discharges but pending therapy assessment. Patient given IMM to review. not
at bedside at this time. CM will continue to follow for discharge planning needs.
Plan; [facility] pending therapy assessment
--- NOTE | 2023-11-26 10:03 | W.PN.HOSP.TC ---
Today's Communication/Plan
-
await DM DIE CAST ENGINEER
weaning steroids
adjusting insulin
d/c planning
Assessment / Plan
Assessment / Plan
pt is a 73 year old male
pt seen by Dr. Sifuentes--agrees with acute rehab--shooting for Sunday
septic shock (likely not mounting much symptoms of infection secondary to his low immunity)--possibly due to diverticulitis (being treated prior to admission)--blood cultures negative, MRSA screen positive--no abscess on CT scan as determined by
IRAD/colorectal, the lesion in liver likely hemangioma not abscess so no drainage needed--off levophed--lasix to restart--Lung lesions septic emboli versus metastasis--back on augmentin--apprec ID, CRS, onc, IRAD
TME likely secondary infection plus neurotoxicity from chemo (Talvey)--resolved--apprec onc, neuro--no seizures on EEG--on high dose steroids per onc--taper once high dose treatment finished
Multiple myeloma-- diagnosed in November 2020--He follows with Dr. Aleman at [place] and also with Dr. Isa Lewis--(He was maintained on Carfilzomib, Pomalidomide, and dexamethasone)--When he developed pulmonary artery hypertension he was switched to
Tecvayli--Currently on Talvey started last admission at [place] (most recent admission, d/c from there 2 days GEOPHYSICS SCIENTIST here)--Patient is also maintained on acyclovir prophylaxis along with Bactrim prophylaxis--PLUS, there is some discussion about being on
ACTEMRA for cytokine storm prevention--defer to onc
Acute hypoxic respiratory insufficiency--secondary to pneumonia versus atelectasis--IS--Continue antibiotics--CT scan chest/ab/pelvis shows Small left pleural effusion with associated left lower lobe atelectasis and/or pneumonia, slightly progressed
and Grossly stable scattered small bilateral upper lung zone nodules--Differential includes septic emboli versus metastases.
Hyponatremia--resolved
Pancytopenia secondary to multiple myeloma--noted--HGB down to 7.7, consider blood transfusion
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
Type 2 diabetes--Diet controlled--blood sugars very elevated with steroids--have been adjusting all weekend--consult DIE CAST ENGINEER-DM
Pulmonary hypertension WHO Group 5 - on Ambrisentan and sildenafil
SCds for DVT Prophylaxis
Full CODE
updated and daughter.....11/22
other PMH:
Doubt ANAI--creat 1.4 (likely baseline)-- CKD since creat up since Aug 2023
Mild aortic stenosis
Essential Hypertension-Not on meds now
Dyslipidemia /Atherosclerosis-Red Yeast Rice
Right bundle branch block
Hepatic steatosis
History of prostate cancer status post prostatectomy and radiation-follows with Dr. Escalona--technically cleared with very low PSA--Continue Flomax
Pulmonary nodules
Vitamin B12 deficiency-on supplement
Diverticulosis
Hypoalbuminemia
Sciatica
Insomnia-continue Ambien
Ex-smoker

CT of the chest abdomen pelvis-acute diverticulitis of the mid sigmoid colon progressed. Resolving diverticulitis of the hepatic flexure. New 2.7 cm rim-enhancing subcapsular right hepatic lobe cystic lesion suggestive of an abscess. Findings
suggestive of splenic infarct. Small left pleural effusion associated left lower lobe atelectasis and/or pneumonia progress. Scattered small bilateral upper lobe zone nodules septic emboli versus metastasis.
Echo 11/05/2023-mildly reduced LV systolic function. Global hypokinesis. Paradoxical septal motion consistent with left bundle branch block. Flattened septum in systole consistent with RV pressure overload. Ejection fraction 40 to 45%. Pulmonary
pressure 30-35 mm Hg.
Anticipated Discharge: 24 - 48 hours
Subjective/Interval History
-
Date of Service: November 26, 2023
pt sitting having breakfast--diet changed to diabetic diet Friday 11/24
Objective Data
-
Labs:
Laboratory Results
11/26/23
04:02
WBC 3.6 L
Hgb 7.8 L
Hct 23.3 L
Plt Count 119 L
Sodium 135
Potassium 4.3
Chloride 110 H
Carbon Dioxide 23
BUN 53 H
Creatinine 1.1
Glucose 225 H
Calcium 7.9 L
Vital Signs:
max temp for 24 hours
11/25/23
22:44
Temp 98.4 F
Vital Signs
Temp Pulse Resp BP Pulse Ox
98.0 F 69 15 128/64 95
11/26/23 03:19 11/26/23 08:06 11/26/23 06:00 11/26/23 08:06 11/26/23 04:40
I&O
11/25/23 11/26/23 11/27/23
06:59 06:59 06:59
Intake Total 104 / 104 1070 / 1070
Balance 104 / 104 1070 / 1070
Review of Systems
-
All other systems: Reviewed and negative
Physical Exam
-
General: Well Developed, Well Nourished and No Apparent Distress
HEENT: Normocephalic and Atraumatic
Respiratory: Clear to Auscultation; Negative Wheezes or Rhonchi
Cardiac: Regular Rhythm and S1/S2; Negative Murmur
GI: Soft, Nontender, Nondistended and Normal Bowel Sounds
Musculoskeletal: No Clubbing and No Cyanosis; Negative No Edema (2+ LE edema bilaterally)
Skin: Warm
Neuro: Awake and Alert
Psych: Calm
[2023-11-26] MEDS: LANTUS 0.299999999999999989 UNITS SC ×2 (11:52→22:30)
[2023-11-26 11:57] LABS: Glucose - Point of Care 264 mg/dl (70-99)
[2023-11-26] MEDS: NOVOLOG FLEXPEN-HIGH RESISTANCE 4 UNITS SC (12:27)
[2023-11-26] MEDS: NOVOLOG FLEXPEN 25 UNITS SC ×2 (12:27→16:50)
--- NOTE | 2023-11-26 12:34 | W.PN.ID1 ---
Date of Service
Date of Service: November 26, 2023
Today's Communication
Continue Augmentin 875mg po bid through 11/29/23.
ID will sign off.
Assessment / Plan
# Progression of sigmoid diverticulitis compared to 09/2023 - pt wo abdominal sxs
Diverticulitis mild, per colorectal
# Liver lesion = old hemangioma, not abscess, per radiology and colorectal.
# Fever x 1 - resolved
# MRSA colonization
- blood cx's negative to date.
- Continue Augmentin 875mg po bid through 11/29/23.
# Splenic infarct
-Suspect due to recent fall on to right side in October 2023
- 11/[address] showed travon-splenic, subcapsular hematoma.
11/[address]: resolving splenic hematoma with evolving infarct
- 11/12 outside blood cx's negative
-11/12 outside TTE negative
# Pulmonary nodules, some cavitary are not new
- Suspect metastasis
# Change in mental status due to ICANS from Talvey per Hem/onc
- improving on steroid.
# Refractory multiple myeloma, recent new regimen Talvey
# Recurrent prostate ca
# s/p recent Pseudomonas, Eubacterium bacteremia
source from abrasions after fall
completed 10 days of antibiotics on 11/11
#Additional Past Medical History:
Refractory Multiple myeloma
DM type 2
Hypertension
Congestive heart failure slight reduced EF
Pulmonary hypertension
Nephrolithiasis
CKD3b
Pulmonary nodules
Diverticulitis
Fatty liver
hx [place] prostate cancer s/p prostatectomy/XRT (2020) with recurrence by PET
Chief Complaint
-: Other (Diverticulitis)
Subjective / Review of Systems
Feels well.
Vital Signs / Physical Exam
Vital Signs
Vital Signs
Temp Pulse Resp BP Pulse Ox
97.4 F 69 15 128/64 95
11/26/23 11:35 11/26/23 08:06 11/26/23 06:00 11/26/23 08:06 11/26/23 04:40
Physical Exam
Constitutional: No Acute Distress
Gastrointestinal: Soft, Non Tender and Non Distended
Neurological: AO x 3
Objective Data
Lab Data
Lab Results
11/26/23 04:02
11/26/23 04:02
PT 19.4 Sec (11.4-14.6) H 11/21/23 15:30
INR 1.63 11/21/23 15:30
Estimated Creat Clear 62 ml/min 11/26/23 04:02
Lactic Acid 1.7 mmol/L (0.7-2.0) 11/21/23 15:30
Total Bilirubin 0.4 mg/dl (0.2-1.3) 11/25/23 04:07
AST 19 U/L (17-59) 11/25/23 04:07
ALT 34 U/L (0-50) 11/25/23 04:07
Alkaline Phosphatase 115 U/L (38-126) 11/25/23 04:07
Most recent labs reviewed.
Micro Results:
11/21/23 15:30 Blood Culture - Preliminary
Blood/Venous No Growth in 4 days- Final report to follow
11/21/23 15:37 Blood Culture - Preliminary
Blood/Venous No Growth in 4 days- Final report to follow
11/22/23 12:51 Respiratory Culture - Final
Sputum Gram Stain - Final
11/21/23 16:59 Urine Culture - Final
Urine NO GROWTH
11/21/23 22:05 Nasal Screen MRSA (PCR) - Final
Nose Staph aureus MRSA
11/21/23 15:36 Influenza Types A & B (ARMEN) - Final
Nasal Swab Negative for Influenza A & B, NAAT
Negative results must be combined with clinical observations
and patient history.
Nucleic Acid Amplification test (NAAT)performed on the
[employer] platform.
11/21/23 CT a/p w IV contrast: Acute diverticulitis of the mid sigmoid colon, progressed. Resolving diverticulitis of the hepatic flexure. New 2.7 cm rim-enhancing subcapsular right hepatic lobe cystic lesion highly suggestive of abscess. Findings
suggesting splenic infarcts, new from prior. Small left pleural effusion with associated left lower lobe atelectasis and/or pneumonia, slightly progressed. Grossly stable scattered small bilateral upper lung zone nodules. Differential includes
septic emboli versus metastases.
11/21/23 CXR: Stable small left pleural effusion with associated atelectasis and/or pneumonia.
CECIL[facility] imaging:
11/19/23 CT a/p with IV contrast: Moderate to severe sigmoid diverticulitis diverticulitis with findings are suggestive of intramural abscesses. Smaller subcapsular splenic fluid collection, significantly decreased in size since chest CT on 11/12/2023,
likely reflecting a resolving subcapsular hematoma with evolving splenic infarcts.Redemonstrated partially visualized pulmonary nodules in the right lung some of which are cavitary, may reflect septic emboli versus metastases.Soft tissue thickening
in the prostatic bed compatible with known prostate cancer recurrence, which is similar to 09/09/2023. Local invasion of prostate cancer to the adjacent structures will be better characterized on MRI.Hyperenhancing lesions in the liver, which were
present on the prior examination. These lesions are not well characterized. See above description. MRI of the liver can be considered for further evaluation.Stable nonspecific perihepatic complex ascites. Indeterminant whether the hyperattenuating
components are enhancing or represent hemorrhagic/proteinaceous material.
11/12/2023 CT chest wo: Multifocal cavitating nodules are concerning for septic emboli versus cavitating metastases. Small left pleural effusion and associated compressive atelectasis.
Mixed lytic and sclerotic lesion in the lateral left fifth and sixth ribs may reflect metastatic disease or sequelae of multiple myeloma. Suspected perisplenic hematoma and possible laceration, incompletely characterized.
[2023-11-26 12:38] LABS: Glucose - Point of Care 234 mg/dl (70-99)
[2023-11-26 13:55] LABS: Albumin 1.77 g/dL (3.75-5.01); Alpha 1 Globulin 0.34 g/dL (0.19-0.46); Alpha 2 Globulin 0.64 g/dL (0.48-1.05); Free Kappa Light Chains,Quant 5205.93 mg/L (3.30-19.40); IgA <2 mg/dL (68-408); IgG 5738 mg/dL (768-1632); IgM <10 mg/dL (35-263); Immunofixation Electrophoresis IFE Done; Kappa/Lambda Fr Light Ratio 2602.96 (0.26-1.65); Total Protein-Electrophoresis 9.1 g/dL (6.3-8.2)
[2023-11-26 16:46] LABS: Glucose - Point of Care 185 mg/dl (70-99)
[2023-11-26] MEDS: FLOMAX 0.400000000000000022 MG PO (16:49)
[2023-11-26] MEDS: NOVOLOG FLEXPEN-HIGH RESISTANCE 2 UNITS SC (16:50)
--- NOTE | 2023-11-26 17:30 | PTCARENOTE ---
Report called to Joann Bray RN. Patient left via patient transport wheel chair. Patient left with all known belongings. Patients home medication, Letairis, given back to patient to take with.
--- NOTE | 2023-11-26 20:35 | W.PN.ONC2 ---
Today's Communication / Plan
-
Doing well with steroid taper, continue
Myeloma responding well to therapy so far.
Impression
Impression
CRS with immune effector cell neurotoxicity (ICANS) post talquetamab, resolved
Recent diverticular abscess
Refractory multiple myeloma with associated pancytopenia
Recent Pseudomonas bacteremia
Recent splenic hematoma
Pulmonary hypertension
History of B12 deficiency
History of prostate carcinoma
Plan
Plan
neurological symptoms improved 11/22 after steroid initiation and remain at baseline today. Pressors stopped 11/23 am and vitals remain stable, afebrile.
cont steroids - taper to dex 10 mg q12 tomorrow 11/26, decrease to 10 mg daily on 11/27, then stop 11/28.
neurology following
myeloma panel shows nice decrease in kappa light chain, 50% reduction since 10/30
continue acyclovir ppx.
Subjective/Objective
Chief Complaint
Heme/Onc follow up of MM, ICANS/CRS due to bispecific therapy
Subjective
Feels well today, denies fever.
Vital Signs:
Vital Signs
Temp Pulse Resp BP Pulse Ox
98.1 F 75 18 110/58 94
11/26/23 18:54 11/26/23 18:54 11/26/23 18:54 11/26/23 18:54 11/26/23 18:54
Lab Results:
Laboratory Data
WBC 3.6 10^3/uL (4.8-10.8) L 11/26/23 04:02
Hgb 7.8 g/dL (13.0-18.0) L 11/26/23 04:02
Plt Count 119 10^3/uL (130-400) L 11/26/23 04:02
PT 19.4 Sec (11.4-14.6) H 11/21/23 15:30
INR 1.63 11/21/23 15:30
eGFR > 60.00 11/26/23 04:02
Physical Exam
Awake, alert, non-toxic appearing
HEENT: Moist Mucous Membranes; No Jaundice
Cardiology: Normal Sinus Rhythm, S1 and S2
Pulmonary: Clear; No Wheezes
GI: Soft and Normal Bowel Sounds
Extremities: No C/C/E
Neuro: Non Focal
Review of Systems
Review of Systems
Constitutional: Reports Fatigue; Denies Fever
Head: Denies Sore Throat or Hearing Loss
Respiratory: Denies Dyspnea or Cough
Cardiovascular: Denies Chest Pain or Palpitations
Gastrointestinal: Denies Nausea/Vomiting or Diarrhea
Genitourinary: Denies Hematuria or Other
Skin: Denies Rash or Pruritis
Neurological: Denies Headache or Numbness
Psychiatric: Denies Depression or Insomnia
Hem/Lymphatic: Reports Easy Bruising; Denies Night Sweats
[2023-11-26 21:25] LABS: Glucose - Point of Care 166 mg/dl (70-99)
[2023-11-26] MEDS: AMBIEN 5 MG PO (22:30)
[2023-11-27 05:08] VITALS: BMI 30.2
[2023-11-27 06:22] LABS: Hematocrit 27.3 % (39.0-52.0); Mean Corpuscular Volume 97.2 fL (80.0-94.0); Mean Platelet Volume 10.7 fL (7.4-10.4); Platelet Count 146 10^3/uL (130-400); Red Blood Cell Count 2.81 10^6/uL (4.70-6.10); Red Cell Dist. Width 20.3 % (11.5-14.5); White Blood Cell Count 4.3 10^3/uL (4.8-10.8)
[2023-11-27 07:00] VITALS: BP 114/62
[2023-11-27 07:12] LABS: ALT (SGPT) 41 U/L (0-50); AST (SGOT) 16 U/L (17-59); Albumin 2.9 g/dl (3.5-5.0); Alkaline Phosphatase 98 U/L (38-126); Blood Urea Nitrogen 57 mg/dl (9-20); Calcium 7.9 mg/dl (8.4-10.2); Carbon Dioxide 23 mmol/L (22-30); Chloride 107 mmol/L (98-107); Estimated Creatinine Clearance 57 ml/min; Glucose 224 mg/dl (70-99); Magnesium 1.8 mg/dl (1.6-2.3); Potassium 4.6 mmol/L (3.5-5.1); Sodium 134 mmol/L (135-145); Total Bilirubin 0.8 mg/dl (0.2-1.3); Total Protein 8.6 g/dl (6.3-8.2); eGFR > 60.00
--- NOTE | 2023-11-27 07:20 | PN.DE.MGMTRT ---
Insulin Management
- -
11/27/2023: Diabetes Management Consult Follow up
Patient admitted 11/20 with increased fatigue and weakness, hypotension and confusion.
PMH: HTN, HFpEF, RBBB, pulmonary HTN, mild , multiple myeloma, CKD 3B, obesity, prostate cancer s/p Prostatectomy and radiation, B12 deficiency, diverticulitis, sciatica, insomnia, hepatic steatosis, hyponatremia, Pseudomonas bacteremia, renal
stones and T2DM. A1C 7.3% on admission, Cr 1.1, eGFR>60
Cr 1.2, eGFR > 60 today.
Pt awake, A/O x3, sitting up in chair, offers no complaints, able to discuss diabetes management; patient conferenced in by phone for discussion.
Current diabetes regimen includes: Lantus 30 units BID, Just increased yesterday AM, NovoLog 25 units AC and high corrective with meals.
Patient also receiving IV steroids- Dexa 10mg Q8hrs, contributing to Hyperglycemia.
Glucose improved yesterday after AM lantus dose started, pre dinner 185, HS 166. Patient for discharge today, he reported to Dr. Calvo he did not want to take insulin. Will stop Lantus 30 units BID and continue novolog 25 units AC with moderate
corrective until discharge. Restarted metformin 1000 BID and glipizide 5 mg BID, both with first doses this AM.
In the past patient has taken an SGLT2 but had UTI. There are no other PO meds to consider. Discussed with patient and insulin may be required temporarily.
Pt states he has a glucose monitor (Exent) at home and has been monitoring his sugars daily. Patient to test fasting and 2 hours after each meal and report to primary Doctor. is concerned that patient CR might elevate. Patient does get
weekly labs, to report her concern to primary doctor. If glucose remains elevated after steroids stopped to contact Dr. Hunter for further instructions.
Patient has my number for further questions.
Diabetes History
- -
Type of Diabetes: 2
Pre-Admission Diabetes Regimen
11/27/23
05:11
Creatinine 1.2
Lab Results
Hemoglobin A1c 7.3 % (4.0-5.6) H 11/23/23 03:24
Insulin Pump Settings
IP Diabetes Regimen
11/26/23 11/26/23 11/26/23
08:06 11:46 12:26
Glucose
POC Glucose 250 H 264 H 234 H
11/26/23 11/26/23 11/27/23
16:36 21:23 05:11
Glucose 224 H
POC Glucose 185 H 166 H
Meal type: Dinner
Meal type: Breakfast
Amount consumed: 100%
Amount consumed: 95%
Patient Education
--- NOTE | 2023-11-27 07:28 | W.PN.HOSP.TC ---
Today's Communication/Plan
-
anticipate DC today after seen by Oncology and confirm DM regimen with DM [employer]OR [employer]UM WORKER
need to confirm Decadron taper
Assessment / Plan
Assessment / Plan
pt is a 73 year old male with hx HFpEF, pulmonary HTN, DM 2, multiple myeloma recently discharged from [place] after 10 day admission for MM treatment with Talvey presents to the ER with increased fatigue and confusion. Prior to [place] admission,
patient had a fall and he was found to have a perisplenic hematoma; repeat CT showed resolving hematoma but new severe sigmoid diverticulitis with mural abscess (no abdominal symptoms) and he was discharged on Augmentin. [facility] [place] course c/b
iatrogenic fluid overload s/p diuresis.
septic shock (likely not mounting much symptoms of infection secondary to his low immunity)
Progression of acute diverticulitis
MRSA colonization
-blood cultures negative
-Lung lesions septic emboli versus metastasis-
-no abscess on CT scan as determined by IRAD/colorectal, the lesion in liver likely hemangioma not abscess so no drainage needed
-off levophed-
-lasix to restart
-s/p course Vanc/Zosyn transitioned to Augmentin through 11/29/23
-apprec ID, CRS, onc, IRAD
TME likely secondary infection plus neurotoxicity from chemo (Talvey)--resolved--apprec onc, neuro--no seizures on EEG--on high dose steroids per onc--taper once high dose treatment finished
Multiple myeloma-- diagnosed in November 2020--He follows with Dr. Aleman at [place] and also with Dr. Isa Lewis--(He was maintained on Carfilzomib, Pomalidomide, and dexamethasone)--When he developed pulmonary artery hypertension he was switched to
Tecvayli--Currently on Talvey started last admission at [place] (most recent admission, d/c from there 2 days D[employer] WORK[employer] here)--Patient is also maintained on acyclovir prophylaxis along with Bactrim prophylaxis--PLUS, there is some discussion about being on
ACTEMRA for cytokine storm prevention--defer to onc
Acute hypoxic respiratory insufficiency--secondary to pneumonia versus atelectasis--IS--Continue antibiotics--CT scan chest/ab/pelvis shows Small left pleural effusion with associated left lower lobe atelectasis and/or pneumonia, slightly progressed
and Grossly stable scattered small bilateral upper lung zone nodules--Differential includes septic emboli versus metastases.
Hyponatremia--resolved
Pancytopenia secondary to multiple myeloma--noted--HGB down to 7.7, consider blood transfusion
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
Type 2 diabetes--Diet controlled--blood sugars very elevated with steroids
-appreciate DM COLOR DRUM WORKER consult
-given decadron taper nearing completion (confirming with Onc) - stop insulin on DC and resume oral meds (he had been off these controlling BGL with diet). Follow final recs from DM [employer] DRUM WORKER
Pulmonary hypertension WHO Group 5 - on Ambrisentan and sildenafil
SCds for DVT Prophylaxis
Full CODE
updated and daughter.....11/22
other PMH:
Doubt ANAI--creat 1.4 (likely baseline)-- CKD since creat up since Aug 2023
Mild aortic stenosis
Essential Hypertension-Not on meds now
Dyslipidemia /Atherosclerosis-Red Yeast Rice
Right bundle branch block
Hepatic steatosis
History of prostate cancer status post prostatectomy and radiation-follows with Dr. Escalona--technically cleared with very low PSA--Continue Flomax
Pulmonary nodules
Vitamin B12 deficiency-on supplement
Diverticulosis
Hypoalbuminemia
Sciatica
Insomnia-continue Ambien
Ex-smoker

CT of the chest abdomen pelvis-acute diverticulitis of the mid sigmoid colon progressed. Resolving diverticulitis of the hepatic flexure. New 2.7 cm rim-enhancing subcapsular right hepatic lobe cystic lesion suggestive of an abscess. Findings
suggestive of splenic infarct. Small left pleural effusion associated left lower lobe atelectasis and/or pneumonia progress. Scattered small bilateral upper lobe zone nodules septic emboli versus metastasis.
Echo 11/05/2023-mildly reduced LV systolic function. Global hypokinesis. Paradoxical septal motion consistent with left bundle branch block. Flattened septum in systole consistent with RV pressure overload. Ejection fraction 40 to 45%. Pulmonary
pressure 30-35 mm Hg.
Anticipated Discharge: Within 24 hours
Subjective/Interval History
-
Date of Service: November 27, 2023
feeling well
wants to go home
Objective Data
-
Labs:
Laboratory Results
11/27/23
05:11
WBC 4.3 L
Hgb 9.0 L
Hct 27.3 L
Plt Count 146 D
Sodium 134 L
Potassium 4.6
Chloride 107
Carbon Dioxide 23
BUN 57 H
Creatinine 1.2
Glucose 224 H
Calcium 7.9 L
Total Bilirubin 0.8
AST 16 L
ALT 41
Alkaline Phosphatase 98
Vital Signs:
Vital Signs
Temp Pulse Resp BP Pulse Ox
98.1 F 70 18 111/56 95
11/26/23 23:00 11/26/23 23:00 11/26/23 23:00 11/26/23 23:00 11/27/23 00:02
I&O
11/26/23 11/27/23 11/28/23
06:59 06:59 06:59
Intake Total 1070 / 1070 1040 / 1040
Output Total 250 / 250
Balance 1070 / 1070 790 / 790
Review of Systems
-
History Source: Patient
All other systems: Reviewed and negative
Physical Exam
-
General: Well Developed, Well Nourished and No Apparent Distress
HEENT: Normocephalic and Atraumatic
Respiratory: Clear to Auscultation; Negative Wheezes or Rhonchi
Cardiac: Regular Rhythm and S1/S2; Negative Murmur
GI: Soft, Nontender, Nondistended and Normal Bowel Sounds
Musculoskeletal: No Clubbing and No Cyanosis; Negative No Edema (2+ LE edema bilaterally)
Skin: Warm
Neuro: Awake and Alert
Psych: Calm
Data Reviewed
-
Diagnostic Radiology: Report Reviewed by me
Labs: Labs Reviewed by me
[2023-11-27 08:23] LABS: Glucose - Point of Care 217 mg/dl (70-99)
[2023-11-27] MEDS: LANTUS 0.299999999999999989 UNITS SC (08:23)
[2023-11-27] MEDS: HEPARIN 5000 UNITS SC (08:24)
[2023-11-27] MEDS: NOVOLOG FLEXPEN 25 UNITS SC ×2 (08:25→11:33)
[2023-11-27] MEDS: NOVOLOG FLEXPEN-MODERATE RESISTANCE 3 UNITS SC (08:26)
[2023-11-27] MEDS: DECADRON 10 MG IV (08:30)
[2023-11-27] MEDS: ZOVIRAX 400 MG PO (08:31)
[2023-11-27] MEDS: VITAMIN D3 (cholecalciferol) 25 MCG PO (08:31)
[2023-11-27] MEDS: LASIX 80 MG PO (08:31)
[2023-11-27] MEDS: VITAMIN B-12 1000 MCG PO (08:31)
[2023-11-27] MEDS: REVATIO 20 MG PO (08:31)
[2023-11-27] MEDS: AUGMENTIN 875 MG/125 MG 1 TABLET PO (08:31)
[2023-11-27] MEDS: MUCINEX 600 MG PO (08:31)
[2023-11-27] MEDS: NON-FORMULARY ITEM 5 MG PO (08:32)
[2023-11-27] MEDS: BACTROBAN 2% OINTMENT 1 APPLIC NASAL (08:32)
--- NOTE | 2023-11-27 10:12 | W.PN.ONC ---
Today's Communication / Plan
-
d/c home
steroid course to finish tomorrow am
Augmentin through 11/28
add'l myeloma treatment TBD, likely next dose of Talvey 12/03, with possible post-dose in-hospital observation
Impression
Impression
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
Recent diverticular abscess
Refractory multiple myeloma with associated pancytopenia
Recent Pseudomonas bacteremia
Recent splenic hematoma
Pulmonary hypertension
History of B12 deficiency
History of prostate carcinoma
Plan
Plan
neurological symptoms improved 11/22 after steroid initiation and remain at baseline today. Pressors stopped 11/23 am and vitals remain stable, afebrile.
cont steroids - taper dex, final dose 11/27 am. reviewed w/ patient. Rx sent to pharmacy.
myeloma panel shows nice decrease in kappa light chain, 50% reduction since 10/30
continue acyclovir, bactrim ppx.
Augmentin through 11/28 for diverticulitis
due for next dose of Talvey 12/03. I'll discuss w/ Dr. Solo the possible need for add'l supportive care (ie, 48hr post-treatment hospital observation)
Subjective/Objective
Subjective/Objective
feeling better, eager to go home
only c/o nasal sores
walked w/ PT, doesn't qualify for inpatient rehab
Vital Signs:
Vital Signs
Temp Pulse Resp BP Pulse Ox
98.0 F 76 18 114/62 95
11/27/23 07:00 11/27/23 08:31 11/27/23 07:00 11/27/23 08:31 11/27/23 07:00
Lab Results:
Laboratory Data
WBC 4.3 10^3/uL (4.8-10.8) L 11/27/23 05:11
Hgb 9.0 g/dL (13.0-18.0) L 11/27/23 05:11
Plt Count 146 10^3/uL (130-400) D 11/27/23 05:11
PT 19.4 Sec (11.4-14.6) H 11/21/23 15:30
INR 1.63 11/21/23 15:30
eGFR > 60.00 11/27/23 05:11
--- NOTE | 2023-11-27 10:15 | CM ---
Patient for discharge home with . Patient to have [facility] to follow for PT/OT and nursing. Patient to provide transportation and IMM completed and placed on chart. CM will continue to follow for discharge planning needs.
Plan; home with [facility]
--- NOTE | 2023-11-27 10:51 | VNURNOTE ---
Home Health Liaison spoke with patient's Chanda at 1030 to discuss [facility] nurse/therapy, visits, schedule and homebound status. Chanda is agreeable and understands that visits at home will be 2-3 x per week to assess and teach medical management.
Patient has a scale and is able to log a daily weight.
[facility] contact information provided. Chanda is aware that [facility] will contact them for start of care in 1-2 days after discharge from .
[facility] referral completed in [facility].
[2023-11-27 11:27] LABS: Glucose - Point of Care 257 mg/dl (70-99)
[2023-11-27] MEDS: GLUCOPHAGE 1000 MG PO (11:32)
[2023-11-27] MEDS: GLUCOTROL 5 MG PO (11:32)
[2023-11-27] MEDS: NOVOLOG FLEXPEN-MODERATE RESISTANCE 5 UNITS SC (11:33)
--- NOTE | 2023-11-27 12:06 | W.DS.TRANS ---
DC Summary - It Senior Analyst
-
Discharge Instructions:
Sleep Apnea Risk Intermediate
Discharge Diagnosis/Procedures Toxic metabolic encephalopathy thought due to
septic shock but felt more due to neurotoxicity
from chemotherapy, multiple myeloma, acute
hypoxemic respiratory insufficiency resolved,
hyponatremia, pancytopenia secondary to multiple
myeloma, chronic mixed congestive heart failure
, pulmonary hypertension, history of prostate
cancer, vitamin B12 deficiency, hyperlipidemia,
essential hypertension, diet-controlled type 2
diabetes mellitus
Diet Diabetic, Carb Controlled
Activity As tolerated
Driving Restrictions As prior to admission
Bathing Restrictions None
Specialty Instructions Weigh Daily
Instructions:
Stand-Alone Forms:
Changes to Home Medications: Yes
Discharge Medications:
DC Medications w/original date entered in [employer]
red yeast rice 600 mg tablet 1,200 mg PO DAILY Supplement 11/13/15
acyclovir 400 mg tablet 400 mg PO BID Infection 10/22/22
coQ10 (ubiquinol) 100 mg capsule 100 mg PO DAILY Supplement 10/22/22
cyanocobalamin (vitamin B-12) 1,000 mcg tablet 1,000 mcg PO DAILY Supplement 10/22/22
denosumab 120 mg/1.7 mL (70 mg/mL) subcutaneous solution (Xgeva) 120 mg SC [id number] Cancer 10/22/22
loratadine 10 mg tablet (Claritin) 10 mg PO DAILY PRN allergies 10/22/22
tamsulosin 0.4 mg capsule (Flomax) 0.4 mg PO QPM Urinary issue 10/22/22
zolpidem 5 mg tablet (Ambien) 5 mg PO HS PRN insomnia 01/15/23
furosemide 80 mg tablet (Lasix) 80 mg PO DAILY Fluid Retention/Swelling 11/04/23
ambrisentan 5 mg tablet (Letairis) 5 mg PO DAILY Endothelin Receptor Antag 11/21/23
guaifenesin 600 mg tablet, extended release 12 hr (Mucinex) 600 mg PO BID Congestion 11/21/23
sildenafil (pulm.hypertension) 20 mg tablet 20 mg PO TID pulmonary hypertension 11/21/23
sulfamethoxazole 800 mg-trimethoprim 160 mg tablet 1 tab PO MOWEFR@0800 prophylaxis 11/21/23
talquetamab-tgvs 1 dose SC Q2W multiple myeloma 11/21/23
cholecalciferol (vitamin D3) 25 mcg (1,000 unit) tablet (Vitamin D3) 25 mcg PO DAILY Supplement 11/22/23
amoxicillin 875 mg-potassium clavulanate 125 mg tablet 1 tab PO BID Infection #5 tabs 11/27/23
dexamethasone 4 mg tablet 8 mg (2 x 4 mg) PO BID #4 tabs 11/27/23
glipizide 5 mg tablet 5 mg PO BID@0800,1700 #60 tabs 11/27/23
metformin 1,000 mg tablet 1,000 mg PO BID@0800,1700 #60 tabs 11/27/23
mupirocin 2 % topical ointment 1 applic intranasal BID #15 grams 11/27/23
Home Medication Changes
Decadron was prescribed by Dr. Lewis. Please call us if you need us to resend the script. Take 8mg this evening and 8mg tomorrow morning then stop.
Resume your Glipizide and Metformin. Your blood glucose levels may remain high for several days given Decadron use (last dose tomorrow morning).
For Mupirocin for MRSA colonization: Apply to each nare ever evening x 5 days each month until 22g tube runs out
No need to steel pickler Glipizide, Metformin, or Augmentin today if you have enough pills at home.
Take Augmentin through 11/29/23.
Pending Results: No
[2023-11-27 13:18] VITALS: BP 144/84
--- NOTE | 2023-11-27 15:38 | W.DCSUMMARY ---
Discharge Summary
Discharge Data
Date of Admission: 11/21/23
Date of Discharge: 11/27/23
-
Pending Results: No
Hospital Course
Discharging Physician : Dr. Shilpi Calvo
Disposition : Home with Home Health
Primary care physician : Dr. Eloy Hunter
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
Recent diverticular abscess
Refractory multiple myeloma with associated pancytopenia
Recent Pseudomonas bacteremia
Recent splenic hematoma
Hospital Course :
Mr. Floyd Guidry is a 73 year old male with hx HFpEF, pulmonary HTN, DM 2, multiple myeloma, recent admission 10/30 for [facility] PNA and Pseudomonas bacteremia, followed by recent admission at [facility] for MM treatment with Talvey presents to the ER with
increased fatigue and confusion. Prior to [facility] admission, patient had a fall and he was found to have a perisplenic hematoma; repeat CT at [facility] showed resolving hematoma but new severe sigmoid diverticulitis with mural abscess (no abdominal
symptoms) and he was discharged on Augmentin. [facility] course c/b iatrogenic fluid overload s/p diuresis.
Triage vitals with Pulse 105, T 98.7, BP 101/54. Labs with creatinine 1.5 (within baseline), WBC 3.8. He was found to be volume overloaded. Chest/abdomen/Pelvis CT with progression of acute diverticulitis and abnormality right hepatic lobe. He
was admitted for sepsis 2/2 acute diverticulitis versus SIRS 2/2 cytokine release syndrome from Talvey/immune effector cell associated neurotoxicity syndrome. He was started on Vanc/Zosyn. He was admitted to medicine with cardiology, Oncology,
Neurology, and CRS consulting.
Neurology agreed encephalopathy concerning for neurotoxicity related to Talvey. EEG obtained without evidence of seizure activity. He was started on high dose steroids with taper per Oncology and improvement noted. He is dicharged with 2 more
days of Decadron 8mg.
Regarding progression diverticulitis on CT, patient had no abdominal pain. Evaluated by CRS and no surgical intervention indicated. He was transitioned back to Augmentin which he will continue through 02/29/24.
Regarding abnormality right hepatic lobe reported as abscess but per CRS felt to be hemangioma.
Hospital course c/b severe hyperglycemia while on steroids. Given his last dose of Decadron is tomorrow morning, no need to DC on insulin. He will resume his metformin and Glipizide. He will monitor BGL closely and follow up with his PCP. This
was discussed with DM DIRECTOR PEDIATRIC.
Time spent on discharge was 45 minutes.
Important imaging findings :
Chest/Abdomen/Pelvis CT 11/21/23
IMPRESSION:
1. Acute diverticulitis of the mid sigmoid colon, progressed. Resolving diverticulitis of the hepatic flexure.
2. New 2.7 cm rim-enhancing subcapsular right hepatic lobe cystic lesion highly suggestive of abscess.
3. Findings suggesting splenic infarcts, new from prior.
4. Small left pleural effusion with associated left lower lobe atelectasis and/or pneumonia, slightly progressed.
5. Grossly stable scattered small bilateral upper lung zone nodules. Differential includes septic emboli versus metastases.
LE US 11/21/23
IMPRESSION:
1. No evidence of deep venous thrombosis in the bilateral lower extremities as described above.
CXR 11/21/23
IMPRESSION:
Stable small left pleural effusion with associated atelectasis and/or pneumonia.
Procedure findings :
Discharge Plan
-
Patient Disposition: Home with Home Care
Discharge Diagnosis/Procedures: Toxic metabolic encephalopathy thought due to septic shock but felt more due to neurotoxicity from chemotherapy, multiple myeloma, acute hypoxemic respiratory insufficiency resolved, hyponatremia, pancytopenia
secondary to multiple myeloma, chronic mixed congestive heart failure, pulmonary hypertension, history of prostate cancer, vitamin B12 deficiency, hyperlipidemia, essential hypertension, diet-controlled type 2 diabetes mellitus
Condition: Good
Diet: Diabetic, Carb Controlled
Activity: As tolerated
Driving Restrictions: As prior to admission
Bathing Restrictions: None
Specialty Instructions: Weigh Daily- Call MD for wt gain/loss 3 lbs overnight/5 lbs in 1 week
Referrals:
Eloy Hunter MD [Family Provider] - in less than 1 week
Joann Henderson PA-C [Specified Professional Personl] - 12/27/23 3:00 pm (You have a cardiology follow up with Joann Henderson PA-C on December 26 at 3 pm in [address] [facility] [address] [facility]. If you are unable to make this please call [phone] to
reschedule)
Additional Discharge Medication Instructions:
Decadron was prescribed by Dr. Lewis. Please call us if you need us to resend the script. Take 8mg this evening and 8mg tomorrow morning then stop.
Resume your Glipizide and Metformin. Your blood glucose levels may remain high for several days given Decadron use (last dose tomorrow morning).
For Mupirocin for MRSA colonization: Apply to each nare ever evening x 5 days each month until 22g tube runs out
No need to lease picker Glipizide, Metformin, or Augmentin today if you have enough pills at home.
Take Augmentin through 11/29/23.
Prescriptions:
New
mupirocin 2 % Ointment
1 applic intranasal BID Qty: 15 0RF
metformin 1,000 mg Tablet
1,000 mg PO BID@0800,1700 Qty: 60 0RF
glipizide 5 mg Tablet
5 mg PO BID@0800,1700 Qty: 60 0RF
dexamethasone 4 mg tablet
8 mg PO BID Qty: 4 0RF
Rx Instructions:
Take 8mg evening of 11/26 and 8mg morning of 11/27 then stop
Continued
red yeast rice 600 MG tablet
1,200 mg PO DAILY
cyanocobalamin (vitamin B-12) 1,000 mcg Tablet
1,000 mcg PO DAILY
acyclovir 400 mg Tablet
400 mg PO BID
tamsulosin [Flomax] 0.4 mg Capsule
0.4 mg PO QPM
loratadine [Claritin] 10 mg Tablet
10 mg PO DAILY PRN (Reason: allergies)
Xgeva 120 mg/1.7 mL (70 mg/mL) Solution
120 mg SC [id number]
coQ10 (ubiquinol) 100 mg Capsule
100 mg PO DAILY
zolpidem [Ambien] 5 mg Tablet
5 mg PO HS PRN (Reason: insomnia)
furosemide [Lasix] 80 mg tablet
80 mg PO DAILY
sulfamethoxazole-trimethoprim 800-160 mg tablet
1 tab PO MOWEFR@0800
ambrisentan [Letairis] 5 mg tablet
5 mg PO DAILY
guaifenesin [Mucinex] 600 mg Tablet Extended Release 12hr
600 mg PO BID
sildenafil (pulm.hypertension) 20 mg tablet
20 mg PO TID
talquetamab-tgvs
1 dose SC Q2W
cholecalciferol (vitamin D3) [Vitamin D3] 25 mcg (1,000 unit) Tablet
25 mcg PO DAILY
amoxicillin-pot clavulanate 875-125 mg tablet
1 tab PO BID Qty: 5 0RF
Discharge Orders:
Discharge Patient (As Directed); Ordered 11/27/23
Ordered By: Shilpi Calvo
Discharge Date and Time
Discharge Date/Time: 11/27/23 13:23
Print Language: AUSTRIAN
== END 2023-11-27 13:23 | disposition home health service (06) | DRG 871 ==
LOC: 2 NORTH 18:15
PROVIDERS: Hospitalist; Internal Medicine; Internal Medicine Hematology & Oncology; Nurse Practitioner; Nurse Practitioner Family; ADMITTING PHYSICIAN Hospitalist; ATTENDING PHYSICIAN Student in an Organized Health Care Education/Training Program; CONSULT PHYSICIAN Internal Medicine Hematology & Oncology; CONSULT PHYSICIAN Physical Medicine & Rehabilitation; CONSULT PHYSICIAN Student in an Organized Health Care Education/Training Program; CONSULT PHYSICIAN Surgery; EMERGENCY PHYSICIAN Emergency Medicine; FAMILY PHYSICIAN Family Medicine; OTHER PHYSICIAN Internal Medicine Infectious Disease
DX: A41.89 Other specified sepsis (principal); D61.810 Antineoplastic chemotherapy induced pancytopenia; R65.21 Severe sepsis with septic shock; G92.8 Other toxic encephalopathy; J18.9 Pneumonia, unspecified organism; K75.0 Abscess of liver; C90.00 Multiple myeloma not having achieved remission; I50.42 Chronic combined systolic (congestive) and diastolic (congestive) heart failure; I13.0 Hypertensive heart and chronic kidney disease with heart failure and stage 1 through stage 4 chronic kidney disease, or unspecified chronic kidney disease; E87.1 Hypo-osmolality and hyponatremia; I76 Septic arterial embolism; C79.9 Secondary malignant neoplasm of unspecified site; J98.11 Atelectasis; D73.5 Infarction of spleen; N18.32 Chronic kidney disease, stage 3b; K76.0 Fatty (change of) liver, not elsewhere classified; I25.10 Atherosclerotic heart disease of native coronary artery without angina pectoris; E11.22 Type 2 diabetes mellitus with diabetic chronic kidney disease; G92.00 Immune effector cell-associated neurotoxicity syndrome, grade unspecified; I27.21 Secondary pulmonary arterial hypertension; K57.30 Diverticulosis of large intestine without perforation or abscess without bleeding
CPT/HCPCS: 71046; 71260; 74177; 80048; 80053; 80202; 81003; 81015; 82784; 82805; 82947; 82962; 83036; 83521; 83605; 83735; 83880; 84155; 84165; 84484; 85025; 85027; 85610; 86334; 86850; 86900; 86901; 86920; 87040; 87086; 87205; 87502; 87641; 87811; 93970; 95813; 95816; 96374; 96375; 97116; 97163; 97167; 97530; 97535; 99284; P9016; Q9967

== ENCOUNTER → 2023-11-30 08:13 | Outpatient (REF) | payer MEDICARE, OTHER, SELFPAY ==
[2023-11-30 09:19] LABS: % Basophils 0.2 % (0-2); % Eosinophils 0.5 % (0-6); % Immature Granulocytes 1.5 % (0-0.5); % Lymphocytes 9.5 % (20.5-51.1); % Monocytes 4.5 % (1.7-9.3); % Neutrophils 83.8 % (42.2-75.2); Absolute Immature Granulocytes 0.1 10^3/uL (0-0.05); Absolute Lymphocytes 0.6 10^3/uL (1.2-3.4); Absolute Monocytes 0.3 10^3/uL (0.1-0.6); Absolute Neutrophils 5.5 10^3/uL (1.4-6.5); Hematocrit 33.7 % (39.0-52.0); Mean Corp Hgb Conc. 33.2 g/dL (33.0-37.0); Mean Corpuscular Hgb 31.9 pg (27.0-31.0); Mean Platelet Volume 10.3 fL (7.4-10.4); Nucleated Red Blood Cells % 0 % (-); Platelet Count 152 10^3/uL (130-400); Red Blood Cell Count 3.51 10^6/uL (4.70-6.10); Red Cell Dist. Width 20.6 % (11.5-14.5); White Blood Cell Count 6.6 10^3/uL (4.8-10.8)
[2023-11-30 09:26] LABS: Hemoglobin 11.2 g/dL (13.0-18.0)
[2023-11-30 09:32] LABS: ALT (SGPT) 21 U/L (0-50); AST (SGOT) 17 U/L (17-59); Alkaline Phosphatase 75 U/L (38-126); Blood Urea Nitrogen 52 mg/dl (9-20); Calcium 8.1 mg/dl (8.4-10.2); Carbon Dioxide 24 mmol/L (22-30); Chloride 106 mmol/L (98-107); Glucose 87 mg/dl (70-99); Potassium 4.3 mmol/L (3.5-5.1); Sodium 135 mmol/L (135-145); Total Bilirubin 1.3 mg/dl (0.2-1.3); Total Protein 8.6 g/dl (6.3-8.2); eGFR 57.65
[2023-12-01 23:21] LABS: Beta-2-Microglobulin 20.4 mg/L (<=3.0)
[2023-12-03 03:05] LABS: Albumin 2.51 g/dL (3.75-5.01); Alpha 2 Globulin 0.79 g/dL (0.48-1.05); Free Kappa Light Chains,Quant 3213.16 mg/L (3.30-19.40); Free Lambda Light Chains,Quant 2.49 mg/L (5.71-26.30); IgA 2 mg/dL (68-408); IgG 4072 mg/dL (768-1632); IgM <10 mg/dL (35-263); Immunofixation Electrophoresis IFE Done; Kappa/Lambda Fr Light Ratio 1290.43 (0.26-1.65); Total Protein-Electrophoresis 8.7 g/dL (6.3-8.2)
== END ==
LOC: REG 08:13
PROVIDERS: ATTENDING PHYSICIAN Internal Medicine Hematology & Oncology; FAMILY PHYSICIAN Family Medicine
DX: C61 Malignant neoplasm of prostate (principal); E53.9 Vitamin B deficiency, unspecified; D64.9 Anemia, unspecified; C90.00 Multiple myeloma not having achieved remission; C79.51 Secondary malignant neoplasm of bone; D64.81 Anemia due to antineoplastic chemotherapy; N39.0 Urinary tract infection, site not specified; D63.1 Anemia in chronic kidney disease; N18.30 Chronic kidney disease, stage 3 unspecified
CPT/HCPCS: 36415; 80053; 82232; 82784; 83521; 84155; 84165; 85025; 86334

== ENCOUNTER 2023-12-03 04:20 | Inpatient (IN) | payer MEDICARE, OTHER, SELFPAY ==
[2023-12-03] VITALS (42 sets, daily range): BP systolic 88–129; BP diastolic 45–97; BMI 28.8; BMI 28.0
[2023-12-03 00:38] LABS: % Basophils 0.4 % (0-2); % Eosinophils 0.4 % (0-6); % Immature Granulocytes 3.1 % (0-0.5); % Lymphocytes 11.4 % (20.5-51.1); % Monocytes 4.8 % (1.7-9.3); % Neutrophils 79.9 % (42.2-75.2); Absolute Immature Granulocytes 0.2 10^3/uL (0-0.05); Absolute Lymphocytes 0.9 10^3/uL (1.2-3.4); Absolute Monocytes 0.4 10^3/uL (0.1-0.6); Absolute Neutrophils 6.2 10^3/uL (1.4-6.5); Hematocrit 30.8 % (39.0-52.0); Hemoglobin 10.5 g/dL (13.0-18.0); Mean Corp Hgb Conc. 34.1 g/dL (33.0-37.0); Mean Corpuscular Hgb 32.8 pg (27.0-31.0); Mean Corpuscular Volume 96.3 fL (80.0-94.0); Nucleated Red Blood Cells % 0 % (-); Platelet Count 114 10^3/uL (130-400); Red Cell Dist. Width 19.8 % (11.5-14.5); White Blood Cell Count 7.7 10^3/uL (4.8-10.8)
--- NOTE | 2023-12-03 00:48 | ED.GENMED ---
History of Present Illness
General
Chief Complaint: Weakness
Source: patient, family, ambulance crew, previous radiology exam and previous hospital records (Recent hospitalization November 20 until November 26 as well as recent hospitalization November 02 to November 05.)
Exam Limitations: none
Time Seen by Provider: 12/03/23 00:10
Nursing documentation reviewed up to this point in time: agreed with
Travel History
Have you had any contact with someone who has COVID-19?: No
Do you have any symptoms of coronavirus? Fever > 100 degrees, chills, cough, shortness of breath, sore throat, loss of taste or smell, muscle aches, or headache?: No
History of Present Illness
History of Present Illness:
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 He has history of heart failure with preserved EF, pulmonary hypertension, type 2 diabetes, refractory multiple myeloma who was hospitalized here November 02 until November 05 for treatment of
sepsis due to left lower lobe pneumonia, Pseudomonas bacteremia which was thought to be related to wounds/abrasions related to falls, acute on chronic hyponatremia, acute kidney injury on chronic kidney disease stage IIIb.
After that hospitalization he was hospitalized for 10 days at [facility] for multiple myeloma treatment with Talvey. That hospitalization was complicated by IV fluid overload/pulmonary edema requiring diuresis. He was also found to have sigmoid
diverticulitis with a suspected mural abscess without symptoms, treated with course of Augmentin.
Shortly after discharge from [facility] he was again hospitalized here November 20 until November 26 due to confusion, weakness, hypoxia. Symptoms were thought to be neurotoxicity related Talvey, improved with initiation of steroids.
During this most recent hospitalization he was also treated for CHF, CT of the chest abdomen pelvis noted progression of acute diverticulitis, he was treated for sepsis due to acute diverticulitis versus SIRS due to cytokine release syndrome from
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
He was discharged to home on the , continued Augmentin until completion on November 28.
He was also discharged on an oral steroid taper which completed November 27.
He presents tonight with complaints of progressive weakness and inability to stand tonight but has had no recurrent falls.
He complains of 5-6 day history of left inferior scapular to left superior flank pain. He has had a rare intermittent dry cough and was noted to have a fever tonight of 101.6 �F. He was given Tylenol at 9 PM.
He was also noted to be moderately hypoxic this afternoon during nurse visit with pulse ox of 85 to 86%.
and daughter have noted some dyspnea on exertion with pulse ox ranging 86 to 94% over the past several days.
He has been weighing himself daily and weight has been stable, unchanged. He has had no lower extremity edema.
He denies diarrhea or constipation, denies dysuria and urgency and or hematuria. Appetite has been fair.
Past History
Past History
ED Past Medical History: Cancer (Prostate cancer status post prostatectomy and radiation. Multiple myeloma), CHF, HTN, NIDDM, Renal failure and Other (renal stones, diverticulitis, urosepsis)
ED Past Surgical History: Urological
Social History
Tobacco: Non-smoker
Personal:
Living: with family
Employment: Retired
Family History
Family History: Other (reviewed and noncontributory)
Phy Exam
Physical Exam
Physical Exam:
GENERAL: 73-year-old male appears his stated age, awake, mildly fatigued, intermittently briefly mildly confused noted to have mild resting tachypnea but overall pleasant, easily communicative. Daughter and are accompanying. Oral temperature
99.8 �F.
EYE: pupils equal and reactive. anicteric
NECK: Supple, nontender, no meningismus, no significant adenopathy. Mild JVD.
ENT: posterior pharynx is clear, oral mucosa is mildly dry. TM clear b/l, nares patent.
CARDIAC: Regular rate and rhythm. no murmur.
LUNGS: Mild resting tachypnea, markedly decreased breath sounds left base with positive egophony left lower lobe third of the way up. No rales nor rhonchi.
ABDOMEN: Rotund, soft, nondistended, without focal tenderness, no r/g, mild left CVA tenderness with percussion. Normoactive BS.
NEUROLOGICAL: Awake, very minimally drowsy, oriented x 3, no focal neuro deficits. Motor strength is 5/5 bilaterally. Gross sensation is intact.
SKIN: Mildly hot to touch and dry, normal color, skin intact. No rash.
MUSCULOSKELETAL: No C/C/E. peripheral pulses are full and equal b/l. No palpable tenderness.
PSYCH: Normal and appropriate interaction.
Scores
Heart Failure Risk
Heart Failure Risk Score: Yes
History of Stroke or TIA: No
History of intubation for respiratory distress: No
Heart rate on ED arrival >/= 110: No
SaO2 <90% on arrival on room air: Yes
HR >/=110 during 3min walk test (or too ill to perform test): Yes
ECG has acute ischemic changes: No
Urea >/=12mmol/L (BUN 33.6mg/dL): Yes
Serum CO2>/=35mmol/L: No
Troponin I or T elevated to RI Level (0.4mg/dL): No
NT-proBNP >/=5,000ng/L (5,000pg/ml): No
HF Risk Score: 4
Admission Status: HIGH RISK 26.1% Consider SNF treatment or admission to hospital
Course
Orders/Labs/Results
Orders:
Orders
12/03/23 00:13
Complete Blood Count/With Diff Urgent
12/03/23 00:26
Lactic Acid Urgent
Urinalysis Reflex To Culture Urgent
Blood Culture Urgent
EMELY Source: Blood/Venous
Specimen Description:
Blood Culture Urgent
EMELY Source: Blood/Venous
Specimen Description:
12/03/23 00:27
COVID-19 Antigen Urgent
Source: Nasal Swab
Influenza A+B Rapid Molecular Urgent
EMELY Source: Nasal Swab
Specimen Description:
CR Chest - 2 Views Urgent
Comment:
Reason For Exam: cough, fever
12/03/23 00:29
Electrocardiogram (*1) Urgent
Reason for Study: Shortness of Breath
EKG- Treatment ONCE
12/03/23 00:53
Comprehensive Metabolic Panel Urgent
NT-proBNP Urgent
Troponin I Urgent
12/03/23 04:00
Admit/Transfer Patient As Directed
Co-Sign Provider:
Level of Care: Inpatient admission
Assign to:: IMU- Intermediate Care
Physician / Group: [email or web address]
Diagnosis: symtomatic Lt pleural effusion, acute hypoxia
Reason for Hospitalization: Lt Pleural effusion : symptomatic plus associated hypoxic RI
Likely multifactorial encephalopathy plus deconditioning +/_ steroid induced
myopathy
ANAI - Cardio renal syndrome ?
Hyponatremia
Chr combined CHF
Hypotension
Expected length of stay greater than two midnights?: Yes
ELOS- Estimated Length of Stay in days: 7
I certify the patient meets the requirements for IP care: Yes
12/03/23 04:07
Code Status As Directed
Resuscitation Status: Full Code
Abnormal Lab Results
12/03/23 12/03/23
00:13 00:53
RBC 3.20 L 10^6/uL
(4.70-6.10)
Hgb 10.5 L g/dL
(13.0-18.0)
Hct 30.8 L %
(39.0-52.0)
MCV 96.3 H fL
(80.0-94.0)
MCH 32.8 H pg
(27.0-31.0)
RDW 19.8 H %
(11.5-14.5)
Plt Count 114 L D 10^3/uL
(130-400)
Abs Immat Gran (auto) 0.2 H 10^3/uL
(0-0.05)
Absolute Lymphs (auto) 0.9 L 10^3/uL
(1.2-3.4)
Immature Gran % 3.1 H %
(0-0.5)
Neutrophils % 79.9 H %
(42.2-75.2)
Lymphocytes % 11.4 L %
(20.5-51.1)
Sodium 129 L mmol/L
(135-145)
Carbon Dioxide 19 L mmol/L
(22-30)
BUN 59 H mg/dl
(9-20)
Creatinine 1.7 H mg/dL
(0.7-1.3)
Glucose 191 H mg/dl
(70-99)
Calcium 7.7 L mg/dl
(8.4-10.2)
AST 15 L U/L
(17-59)
Albumin 2.6 L g/dl
(3.5-5.0)
12/03/23 00:13
12/03/23 00:53
Vital Signs
Temp: 99.8 F
Initial and Last Documented VS:
Initial Vital Signs
Temp Pulse Resp BP Pulse Ox
98.7 F 105 20 90/51 92
12/03/23 00:04 12/03/23 00:04 12/03/23 00:04 12/03/23 00:04 12/03/23 00:04
Last Documented Vital Signs
Temp Pulse Resp BP Pulse Ox
98.3 F 96 32 95/57 91
12/03/23 02:51 12/03/23 04:15 12/03/23 04:15 12/03/23 04:15 12/03/23 04:15
MDM/Problems Addressed
Differential Diagnosis Includes:
Patient presents with generalized weakness, mild confusion, acutely febrile.
He has known refractory multiple myeloma, recent hospitalizations for diverticulitis, sepsis, pseudomonal bacteremia, left lower lobe pneumonia, CHF.
Significant concern for recurrence of all of these as well as concern for left pleural effusion versus recurrent left lower lobe pneumonia, concern for UTI, pyelonephritis, left ureteric stone.
Due to recent hospitalization with fluid overload, hypoxia will be judicious with IV fluids.
Noted to be mildly hypotensive with blood pressure 90/51 but according to family this is his baseline.
Pulse ox 88% room air, placed on 2 L nasal cannula.
Will check labs/sepsis workup as well as CHF workup and will plan for chest x-ray.
To consider additional imaging depending on results and clinical course.
Due to chronic immunocompromise, recent hospitalization for sepsis, pneumonia, diverticulitis and current/recurrent fever, severe generalized weakness, significant concern for recurrent sepsis thus patient will require acute hospitalization.
Chronic conditions affecting care: DM, HTN, Neurological disorder, Immunosuppressed, Kidney disease and Cancer
*Radiology
Radiology exam reviewed: preliminary read by ED provider (Chest x-ray shows very large left pleural effusion which has markedly progressed from previous film November 20.)
*Pulse Oximetry
Patient hypoxic: yes
*EKG
Interpreted by ED Provider?: Yes
Interpretation: abnormal
Comparison EKG: no changes (Unchanged from previous November 03, 2023)
Rate: normal
Rhythm: sinus and PVC's
[place]: normal axis
QRS Pattern: right bundle branch block
Ischemia: non-specific ST changes
*[employer] Interpretation
Rate: normal
Interpretation: normal
Rhythm: sinus and PVC's
*Critical Care Note
Total Time (30-74mins, 75-104mins- exclusive of procedures): Not Applicable
Update Note
Update Note:
Labs show normal white blood cell count of 7.7. Moderate but overall stable anemia with hemoglobin of 10.5. Mild thrombocytopenia with platelet count of 114 extracted down from 152, 3 days ago.
Chemistries show moderate hyponatremia of 129, similar sporadic hyponatremia noted in the past.
Creatinine at 1.7, has trended up from 1.33 days ago. BUN has trended up slightly from 52 to now 59.
Moderate hypocalcemia of 7.7, with low albumin of 2.6, hypocalcemia corrects up to 8.82.
Lactic acid is normal at 1.8.
BNP is elevated at 1770 but this is markedly improved from previous at 7260. Upon review of records, baseline BNP appears to be in the 500-600 range.
Chest x-ray remarkable for large left pleural effusion that is markedly increased from previous film earlier this month.
I suspect this effusion is cause for hypoxia and resting tachypnea.
With uptrend in BUN and creatinine, improvement in BNP and overall clinically patient appears mildly dry I am hesitant to give IV diuretics for effusion.
Fever reported at home with borderline fever of 99.8 �F upon arrival to the ED, has since remained afebrile. Normal lactic acid is reassuring. At this point we will hold off on antibiotics and discuss treatment plans with admitting hospitalist.
Blood cultures are pending.
ED Attending Note
-
Portions of this chart may have been created with voice recognition software.� Occasional wrong word or��sound alike� substitutions may have occurred due to the inherent limitations of voice recognition software.
Discharge Plan
Departure
Patient Disposition: Admit
Date of Disposition: 12/03/23
Time of Disposition: 02:27
Admit to: Telemetry
Admit to doctor: Miguel
Presentation/result/management discussed w/ accepting MD/DO: Hospitalist
Condition: Fair
Discharge Problem:
Symptomatic left pleural effusion, fever r/o sepsis, Multiple myeloma not having achieved remission, Hyponatremia, Hypoxemia, Hypertensive heart and chronic kidney disease with heart failure and stage 1 through stage 4 chronic kidney disease, or
unspecified chronic kidney disease
Interventions
Interventions:
*Risk Screen - Suicide Last Done: 12/03/23 00:04
*General Assessment Last Done: 12/03/23 00:04
*Neglect/Abuse Screening Last Done: 12/03/23 00:04
ED- Fall Risk Assessment Last Done: 12/03/23 02:56
*ED COVID-19 Vaccine History Last Done: 12/03/23 00:04
ED- Cardiac Assessment Last Done: 12/03/23 02:53
ED- Neurological Assessment Last Done: 12/03/23 02:54
ED- Pulmonary Assessment Last Done: 12/03/23 02:54
[2023-12-03 00:50] LABS: Lactic Acid 1.8 mmol/L (0.7-2.0)
[2023-12-03 01:00] LABS: COVID-19 Antigen Negative (Negative)
[2023-12-03 01:14] LABS: ALT (SGPT) 18 U/L (0-50); AST (SGOT) 15 U/L (17-59); Albumin 2.6 g/dl (3.5-5.0); Alkaline Phosphatase 69 U/L (38-126); Blood Urea Nitrogen 59 mg/dl (9-20); Calcium 7.7 mg/dl (8.4-10.2); Carbon Dioxide 19 mmol/L (22-30); Chloride 105 mmol/L (98-107); Estimated Creatinine Clearance 36 ml/min; Glucose 191 mg/dl (70-99); Potassium 3.8 mmol/L (3.5-5.1); Sodium 129 mmol/L (135-145); Total Bilirubin 0.6 mg/dl (0.2-1.3); Total Protein 7.7 g/dl (6.3-8.2); eGFR 41.78
[2023-12-03 01:25] LABS: Troponin I < 0.012 ng/ml
[2023-12-03 01:56] LABS: NT-proBNP 1770 pg/ml
--- NOTE | 2023-12-03 03:49 | HPS.HSE ---
Family Physician
-
Family Physician: Eloy Hunter
Chief Complaint
-
weakness, SoB , gait dysfunction , Hypoxia
History of Present Illness
HPI
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 CHF. Adverse rxn to Multiple myeloma immunotherapy seen at ER for evalaution for
weakness and ambulatory dysfunction plus Lt scapula pain
Weakness
- progressive weakness since DC'd
- associated with and inability to stand up tonight
- denied falls.
Acute left inferior scapular to left superior flank pain.
- intermittent dry cough
- fever tonight of 101.6 �F - was given Tylenol at 9 PM.
- pain was worsened with deep breathin
Acute Hypoxia
During nurse visit with pulse ox of 85 to 86%.
- Familty reports POS dyspnea on exertion over the past several days.
- report daily and weight has been stable, unchanged.
- No lower extremity edema
- HX CHF
ROS
denies diarrhea or constipation, denies dysuria and urgency and or hematuria
Medical History
Past Medical History
Past Medical History: Reports Other
Additional Past Medical History:
Mild aortic stenosis
Essential Hypertension-Not on meds now
Dyslipidemia /Atherosclerosis-Red Yeast Rice
Right bundle branch block
Hepatic steatosis
History of prostate cancer status post prostatectomy and radiation-follows with Dr. Escalona--technically cleared with very low PSA--Continue Flomax
Pulmonary nodules
Vitamin B12 deficiency-on supplement
Diverticulosis
Hypoalbuminemia
Sciatica
Insomnia-continue Ambien
Ex-smoker
renal stones, diverticulitis, urosepsis
Diet controlled NIDDM
Past Surgical History: Reports Urological (Prostate cancer status post prostatectomy and radiation) and Other
Social History
Tobacco: Non-smoker
Alcohol: None
Personal:
Living: With Family
Family History
Family History: Not pertinent
Allergies / Home Medications
Allergies reflects when Allergies were last updated in [employer].
Home Medications with original date entered in [employer]
Allergy/Medication List:
Allergies
Allergy/AdvReac Type Severity Reaction Status Date / Time
bacitracin Allergy redness Verified 09/09/23 10:19
[From Neosporin
([id number])]
neomycin Allergy redness Verified 09/09/23 10:19
[From Neosporin
([id number])]
polymyxin B Allergy redness Verified 09/09/23 10:19
[From Neosporin
([id number])]
Home Medications
red yeast rice 600 mg tablet 1,200 mg PO DAILY Supplement 11/13/15
acyclovir 400 mg tablet 400 mg PO BID Infection 10/22/22
coQ10 (ubiquinol) 100 mg capsule 100 mg PO DAILY Supplement 10/22/22
cyanocobalamin (vitamin B-12) 1,000 mcg tablet 1,000 mcg PO DAILY Supplement 10/22/22
denosumab 120 mg/1.7 mL (70 mg/mL) subcutaneous solution (Xgeva) 120 mg SC [id number] Cancer 10/22/22
loratadine 10 mg tablet (Claritin) 10 mg PO DAILY PRN allergies 10/22/22
tamsulosin 0.4 mg capsule (Flomax) 0.4 mg PO QPM Urinary issue 10/22/22
zolpidem 5 mg tablet (Ambien) 5 mg PO HS PRN insomnia 01/15/23
furosemide 80 mg tablet (Lasix) 80 mg PO DAILY Fluid Retention/Swelling 11/04/23
ambrisentan 5 mg tablet (Letairis) 5 mg PO DAILY Endothelin Receptor Antag 11/21/23
guaifenesin 600 mg tablet, extended release 12 hr (Mucinex) 600 mg PO BID Congestion 11/21/23
sildenafil (pulm.hypertension) 20 mg tablet 20 mg PO TID pulmonary hypertension 11/21/23
sulfamethoxazole 800 mg-trimethoprim 160 mg tablet 1 tab PO MOWEFR@0800 prophylaxis 11/21/23
talquetamab-tgvs 1 dose SC Q2W multiple myeloma 11/21/23
cholecalciferol (vitamin D3) 25 mcg (1,000 unit) tablet (Vitamin D3) 25 mcg PO DAILY Supplement 11/22/23
amoxicillin 875 mg-potassium clavulanate 125 mg tablet 1 tab PO BID Infection #5 tabs 11/27/23
dexamethasone 4 mg tablet 8 mg (2 x 4 mg) PO BID #4 tabs 11/27/23
glipizide 5 mg tablet 5 mg PO BID@0800,1700 #60 tabs 11/27/23
metformin 1,000 mg tablet 1,000 mg PO BID@0800,1700 #60 tabs 11/27/23
mupirocin 2 % topical ointment 1 applic intranasal BID #15 grams 11/27/23
Review of Systems
-
Constitutional: Reports Fever and Fatigue
EENT: Reports No Symptoms
Respiratory: Reports Trouble Breathing
Cardiac: Reports No Symptoms
Abdomen/GI: Reports No Symptoms
: Reports No Symptoms
Musculoskeletal: Reports No Symptoms
Skin: Reports No Symptoms
Neurological: Reports Weakness
Endocrine: Reports No Symptoms
Hematologic/Lymphatic: Reports No Symptoms
Psych: Reports No Symptoms
Physical Exam
Vital Signs
Vital Signs
Temp Pulse Resp BP Pulse Ox
98.3 F 91 22 90/58 94
12/03/23 02:51 12/03/23 02:45 12/03/23 02:45 12/03/23 02:17 12/03/23 02:54
Physical Exam
General: Conversant (pleasant ) and Other (intermittently confused )
HEENT: NormoCephalic, Anicteric and Other
Respiratory: Other (slight tacypnic, left base with positive egophony up to left lower lobe third )
Cardiac: S1/S2 and Regular Rhythm
Breast: Deferred by me
GI: Soft, Non Tender, Non Distended and Normal Bowel Sounds
Rectal: Deferred by Provider
Genito-urinary: Deferred by me
Skin: Warm and Dry
Neuro: Alert (intermitently lethargic ) and Nonfocal/grossly intact
Psych: Calm and Confused
Laboratory Results
-
12/03/23 00:13
12/03/23 00:53
Laboratory Results
Lactic Acid 1.8 mmol/L (0.7-2.0) 12/03/23 00:26
Total Bilirubin 0.6 mg/dl (0.2-1.3) 12/03/23 00:53
AST 15 U/L (17-59) L 12/03/23 00:53
ALT 18 U/L (0-50) 12/03/23 00:53
Alkaline Phosphatase 69 U/L (38-126) 12/03/23 00:53
Troponin I < 0.012 ng/ml 12/03/23 00:53
Data Reviewed
-
Diagnostic Radiology: Discussed with Physician
Lab Data: Labs Reviewed by me
Old Records: Reviewed
Impression/Plan
-
Reviewed VS: Tmax 99.[address] RR22 BP 90/60 POx 87 - 92 %
Data
nl WCC
Hgb 10.5 - 11.2 on 11/30/23
Plt 114 - basline is 115- 150
Na 129
CO2 19
Cr 1.7 - baseline is 1.1 - 1.3
Alb 2.6
NEG TPNI
p BNP 1770 - improved from 7260 as of 11/21/23
NAG MA @ 5
NEG Covid
BC x sent
11/21/23 CXR: Stable small left pleural effusion with associated atelectasis and/or pneumonia.
12/03/23 my view on CXR: larger Lt sided pleural effusion
11/05/23 ECHO
LVEF 40-45
global hypokinesis
nl RV function
mild : Peak/mean gradients are 23/15 mmHg. Using an LVOT of 2.0 cm the calculated valve area is 1.2 cm2.
PASP has improved from prior 55 mmHg to now 30 to 35 mmHg
Last hospitalist admission: - 11/27/23
Principal Discharge diagnosis :
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
Recent diverticular abscess
Refractory multiple myeloma with associated pancytopenia
Recent Pseudomonas bacteremia
Recent splenic hematoma
ASSESSMENT & PLAN
Complex medical issues with high level medical decison making
Interval large expansion of Lt Pleural effusion : symptomatic plus associated hypoxic RI plus Lt sided pleurisy
Chronic mixed CHF with EF 40-45 and HFpEF
Hypotension: Due to recent overdiuresis lasix was held upon DC aslso due to hypotension
Acute hypoxic respiratory insufficiency
Interval decreased proBNP
- Held Diuresis to hypotension
- O2 support to keep POx > 93%
- DCA card consult
- IR consult for Dx and Rxtic lt thoracentesis
Intermittent lethargy with weakness,acute ambulatory dysfunction
- Likely multifactorial encephalopathy plus deconditioning +/_ steroid induced myopathy
- Recent neurotoxicity from chemo (Talvey)
- on high dose steroids per onc on lat admission
- PT/OT to eval for SNF
ANAI - Cardio renal syndrome ?
Hyponatremia
Documented CKD3b but noted last 3 prior eGFR > 60
- trend Cr
- Renal consult
[place] fever at home to 101 per ER
Recent [facility] admission with septic shock
Recent HX acute diverticulitis
MRSA colonization
Recent completion of IP ABx and OP ABx ( course Vanc/Zosyn transitioned to Augmentin through 11/29/23)
- Hold off ABx for now ( Normal lactate )
- BCx sent
- ID consult due to immunocompromised host with hi risk for sepsis
Multiple myeloma-- diagnosed in November 2020
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
Known to Dr. Aleman at [facility] and also with Dr. Isa Banegas
- He was maintained on Carfilzomib, Pomalidomide, and dexamethasone
- When he developed pulmonary artery hypertension he was switched to Tecvayli-
- Currently on Talvey started last admission at [facility]
- Patient is also maintained on acyclovir prophylaxis along with Bactrim prophylaxis
T2DM
- BG 191 on Steroid
- held metformin
- cont Glipizide
- add ISS low
Pulmonary hypertension WHO Group 5
- improved on Ambrisentan and sildenafil
Mild
DVT Px: SCD
Code: Full
IMU
[2023-12-03] MEDS: LEVOPHED 250 IV (06:10)
[2023-12-03 06:35] LABS: % Basophils 0.2 % (0-2); % Eosinophils 0.4 % (0-6); % Immature Granulocytes 1.8 % (0-0.5); % Lymphocytes 11.5 % (20.5-51.1); % Monocytes 5.7 % (1.7-9.3); % Neutrophils 80.4 % (42.2-75.2); Absolute Immature Granulocytes 0.2 10^3/uL (0-0.05); Absolute Monocytes 0.5 10^3/uL (0.1-0.6); Absolute Neutrophils 6.7 10^3/uL (1.4-6.5); Hematocrit 29.2 % (39.0-52.0); Mean Corp Hgb Conc. 34.2 g/dL (33.0-37.0); Mean Corpuscular Hgb 32.5 pg (27.0-31.0); Mean Corpuscular Volume 94.8 fL (80.0-94.0); Mean Platelet Volume 10.2 fL (7.4-10.4); Nucleated Red Blood Cells % 0 % (-); Platelet Count 123 10^3/uL (130-400); Red Blood Cell Count 3.08 10^6/uL (4.70-6.10); Red Cell Dist. Width 19.9 % (11.5-14.5); White Blood Cell Count 8.3 10^3/uL (4.8-10.8)
[2023-12-03 06:51] LABS: Blood Urea Nitrogen 59 mg/dl (9-20); Calcium 7.4 mg/dl (8.4-10.2); Carbon Dioxide 22 mmol/L (22-30); Chloride 104 mmol/L (98-107); Estimated Creatinine Clearance 36 ml/min; Glucose 161 mg/dl (70-99); LDH 220 U/L (120-246); Potassium 4.2 mmol/L (3.5-5.1); Sodium 132 mmol/L (135-145); Total Protein 7.9 g/dl (6.3-8.2); eGFR 41.78
--- NOTE | 2023-12-03 07:25 | PTCARENOTE ---
Pt admitted to IMU for pleural effusion. AAOx3 but drowsy. BP 88/52 MAP 62. POX on 2L 92-93%. RR's 25. SR on CM. Pt just wants to sleep. Chronic back pain with movement. Lungs very diminished. Danielle CHRISTIANSEN TT'd re: BP. Order entered for Levophed gtt.
Levophed gtt initiated at 2mcq/min for MAP > 65. Day shift RN updated on events.
[2023-12-03 08:49] LABS: Glucose - Point of Care 166 mg/dl (70-99)
[2023-12-03 08:51] LABS: Creatine Phosphokinase < 20 U/L (55-170)
[2023-12-03] MEDS: ZOSYN 50 IV ×3 (08:59→20:52)
[2023-12-03] MEDS: BACTRIM DS 800 MG/160 MG 1 TABLET PO (08:59)
[2023-12-03] MEDS: ZOVIRAX 400 MG PO ×2 (08:59→20:52)
[2023-12-03] MEDS: MUCINEX 600 MG PO ×2 (08:59→20:52)
[2023-12-03] MEDS: BACTROBAN 2% OINTMENT 1 APPLIC NASAL ×2 (08:59→20:52)
[2023-12-03] MEDS: VITAMIN D3 (cholecalciferol) 25 MCG PO (08:59)
[2023-12-03] MEDS: NOVOLOG FLEXPEN-LOW RESISTANCE 1 UNITS SC (09:38)
[2023-12-03] MEDS: DECADRON 8 MG PO ×2 (09:39→20:52)
[2023-12-03] MEDS: OMNIPAQUE 50 ML PO (09:39)
--- NOTE | 2023-12-03 10:04 | W.CON.NEPH ---
Consultation
-
Date/Time Consultation Requested: December 03, 2023 9 AM
Date/Time Consultation Performed: December 03, 2019 4:10 AM
Requesting Provider: Dr. Dorantes
Performing Provider: Dr. Chiang
Reason for Consultation: ANAI, hyponatremia
Medical History
-
Chief Complaint: Acute kidney injury
History of Present Illness:
Mr. Guidry is a 73-year-old gentleman with treatment refractory myeloma treated with different regimens over time unfortunately none have been successful. He was admitted in October with a left-sided pneumonia. He had then gone to the [facility]
[place] for another round of chemotherapy. This was complicated by volume overload. After that admission he was readmitted to [facility] with a finding of diverticulitis as well as an abdominal abscess. He was given antibiotics and
discharged on Augmentin therapy. Shortly after discharge he began developing diarrhea. He took Imodium to slow the diarrhea down but began feeling severely weak and developed left-sided shoulder pain. He came to emergency room and was admitted.
He was noted to have hyponatremia with a sodium level around 130 as well as acute kidney injury with a creatinine of 1.7.
Past Medical History
Multiple myeloma
Prostate cancer
Type 2 diabetes mellitus
B12 deficiency
Diastolic congestive heart failure
Essential hypertension
Prostate cancer surgery
Stem cell harvest 2021
Pulmonary arterial hypertension
Social History
Tobacco: Non-Smoker
Alcohol: Occasional
Family History
Family History: Not Pertinent
Allergies / Home Medications
Allergy/AdvReac Type Severity Reaction Status Date / Time
bacitracin Allergy redness Verified 09/09/23 10:19
[From Neosporin
([id number])]
neomycin Allergy redness Verified 09/09/23 10:19
[From Neosporin
([id number]-usc-[id number])]
polymyxin B Allergy redness Verified 09/09/23 10:19
[From Neosporin
([id number])]
�Medication �Instructions �Recorded �Confirmed �Type
red yeast rice 600 mg tablet 1,200 mg PO DAILY Supplement 11/13/15 12/03/23 History
acyclovir 400 mg tablet 400 mg PO BID Infection 10/22/22 12/03/23 History
coQ10 (ubiquinol) 100 mg capsule 100 mg PO DAILY Supplement 10/22/22 12/03/23 History
cyanocobalamin (vitamin B-12) 1,000 mcg PO DAILY Supplement 10/22/22 12/03/23 History
1,000 mcg tablet
denosumab 120 mg/1.7 mL (70 mg/mL) 120 mg SC [id number] Cancer 10/22/22 12/03/23 History
subcutaneous solution (Xgeva)
loratadine 10 mg tablet (Claritin) 10 mg PO DAILY PRN allergies 10/22/22 12/03/23 History
tamsulosin 0.4 mg capsule (Flomax) 0.4 mg PO QPM Urinary issue 10/22/22 12/03/23 History
zolpidem 5 mg tablet (Ambien) 5 mg PO HS PRN insomnia 01/15/23 12/03/23 History
furosemide 80 mg tablet (Lasix) 80 mg PO DAILY Fluid 11/04/23 12/03/23 History
Retention/Swelling
ambrisentan 5 mg tablet (Letairis) 5 mg PO DAILY Endothelin Receptor 11/21/23 12/03/23 History
Antag
guaifenesin 600 mg tablet, 600 mg PO BID Congestion 11/21/23 12/03/23 History
extended release 12 hr (Mucinex)
sildenafil (pulm.hypertension) 20 20 mg PO TID pulmonary hypertension 11/21/23 12/03/23 History
mg tablet
sulfamethoxazole 800 1 tab PO MOWEFR@0800 prophylaxis 11/21/23 12/03/23 History
mg-trimethoprim 160 mg tablet
talquetamab-tgvs 1 dose SC Q2W multiple myeloma 11/21/23 12/03/23 History
cholecalciferol (vitamin D3) 25 25 mcg PO DAILY Supplement 11/22/23 12/03/23 History
mcg (1,000 unit) tablet (Vitamin
D3)
amoxicillin 875 mg-potassium 1 tab PO BID Infection #5 tabs 11/27/23 12/03/23 Rx
clavulanate 125 mg tablet
dexamethasone 4 mg tablet 8 mg (2 x 4 mg) PO BID #4 tabs 11/27/23 12/03/23 Rx
glipizide 5 mg tablet 5 mg PO BID@0800,1700 #60 tabs 11/27/23 12/03/23 Rx
metformin 1,000 mg tablet 1,000 mg PO BID@0800,1700 #60 tabs 11/27/23 12/03/23 Rx
mupirocin 2 % topical ointment 1 applic intranasal BID #15 grams 11/27/23 12/03/23 Rx
Review of Systems
-
Left shoulder pain and weakness diffuse
All other systems: Negative unless noted
Physical Exam
Vital Signs
Vital Signs
Temp Pulse Resp BP Pulse Ox
99 F 93 26 88/52 92
12/03/23 07:30 12/03/23 05:45 12/03/23 05:45 12/03/23 05:43 12/03/23 05:45
Lab Results
WBC 8.3 10^3/uL (4.8-10.8) 12/03/23 06:20
RBC 3.08 10^6/uL (4.70-6.10) L 12/03/23 06:20
Hgb 10.0 g/dL (13.0-18.0) L 12/03/23 06:20
Hct 29.2 % (39.0-52.0) L 12/03/23 06:20
Plt Count 123 10^3/uL (130-400) L 12/03/23 06:20
Sodium 132 mmol/L (135-145) L 12/03/23 06:20
Potassium 4.2 mmol/L (3.5-5.1) 12/03/23 06:20
Chloride 104 mmol/L (98-107) 12/03/23 06:20
Carbon Dioxide 22 mmol/L (22-30) 12/03/23 06:20
BUN 59 mg/dl (9-20) H 12/03/23 06:20
Creatinine 1.7 mg/dL (0.7-1.3) H 12/03/23 06:20
eGFR 41.78 12/03/23 06:20
Glucose 161 mg/dl (70-99) H 12/03/23 06:20
Calcium 7.4 mg/dl (8.4-10.2) L 12/03/23 06:20
Pca-G-Kjeopmxmyhd Pept 1770 pg/ml 12/03/23 00:53
Albumin 2.6 g/dl (3.5-5.0) L 12/03/23 00:53
Physical Exam
Patient is awake alert oriented and in no distress. Mood and affect were pleasant, insight and judgment were good. Pupils are equal round and reactive to light, extraocular movements are intact, sclera were anicteric. Hearing was normal, ears and
nose are intact. Oropharynx was clear. Neck was supple with trachea midline and no thyromegaly. Heart was regular rate and rhythm without rubs. Lower extremities without edema. Lungs were clear to auscultation bilaterally and with normal
excursion. Abdomen was soft, nontender, with normal active bowel sounds, and no hepatosplenomegaly. Skin was without rash and with normal turgor.
Data Reviewed
-
Radiology: Image Personally Visualized and interpreted (Chest x-ray on December 03, 2023 by my reading shows large left-sided opacification, likely effusion)
Medical Tests (Nuc Med, Echo etc): Image Personally Visualized and interpreted (EKG on December 03, 2023 by my reading shows normal sinus rhythm PVCs right bundle branch block)
Labs: Labs Reviewed by me (Hemoglobin 10.0, white count 8.3, creatinine 1.7, bicarbonate 22, potassium 4.2, sodium 132, calcium 7.4)
Old Records: Reviewed (On November 30, 2023 creatinine 1.3)
Assessment/Plan
-
Assessment
Multiple myeloma refractory to treatment
Right ventricular heart failure with preserved ejection fraction
Diabetes mellitus type 2
Acute kidney injury
Hyponatremia
Anemia
Left lower lobe pneumonia/effusion
Diarrhea
Diverticulitis
Liver abscess
Plan
ANAI likely from diarrhea
Hyponatremia also likely potentiated by diarrhea
Weakness may be related to immunotherapy. His sodium level was not quite low enough to suspect that this was a cause.
Check urine studies
Does not appear to be volume depleted, will hold on IV fluids
Continue antibiotic coverage for diverticulitis and abscess
--- NOTE | 2023-12-03 10:14 | CON.CAR ---
Consultation
Consultation Request
Date/Time Consultation Requested: 12/03/2023 at 4 AM
Date/Time Consultation Performed: 12/03/2023 at 10 AM
Requesting Provider: Dr. Rivera
Performing Provider: Thierno Covarrubias MD
Reason for Consultation: Shortness of breath/HFmrEF/pleural effusion/pulmonary hypertension
Medical History
-
Chief Complaint: Dyspnea weakness
History of Present Illness:
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 There is a history of multiple myalgias [place] and prostate cancer. Initially he achieved remission but in 2022 has had recurrence and has
required hospital stays for HFpEF and severe pulmonary hypertension, possibly drug-induced from Kyprolis. Recently he has been at the [facility] and received teclistamab for refractory multiple myeloma. Prior to this he was treated
with rasburicase. He has had hospital stays for heart failure and pulmonary hypertension. He is hide right heart catheterization. He is now on Ambrisentan and sildenafil for his pulmonary hypertension. He was admitted on November 20 with confusion
and possible sepsis/SIRS. It was felt that his encephalopathy could be neurotoxicity from teclistamab, treated with steroids. He was felt to have hepatic flexure diverticulitis. There is also history of recent fall with perisplenic hematoma,
prior to his admission to the [facility]. He was discharged on November 26. He returned in the cover creaser hours of December 02 with severe pleuritic left inferior scapular to left superior flank pain with dry cough and fever, worse lying
down. He was hypoxemic with pulse oximetry of 85 to 86% with increasing dyspnea on exertion. He is weak. Currently he is sitting on the side of the bed very uncomfortable, at bedside. He is scheduled to go to interventional radiology shortly.
Past Medical History
Past Medical History: CAD (Coronary artery calcification on CT scan), Cancer (Prostate cancer, refractory multiple myeloma), CHF (HFpEF with severe pulmonary hypertension suspected secondary to Kyprolis), HTN, Hypercholesterolemia, NIDDM, Valvular
Disease (Mild aortic stenosis) and Other (CKD, degenerative disc disease, fatty liver, pneumonia, diverticulitis,, history of urosepsis)
Past Surgical History: Urological (Perineal prostatectomy)
Social History
Tobacco: Non-Smoker
Alcohol: None
Drug: None
Personal:
Living: With Family
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
Family History
Family History: Reviewed & Not Pertinent
Allergies / Home Medications
Allergy/AdvReac Type Severity Reaction Status Date / Time
bacitracin Allergy redness Verified 09/09/23 10:19
[From Neosporin
([id number]-uvo-[id number])]
neomycin Allergy redness Verified 09/09/23 10:19
[From Neosporin
(toh-zmk-kytth)]
polymyxin B Allergy redness Verified 09/09/23 10:19
[From Neosporin
([id number])]
�Medication �Instructions �Recorded �Confirmed �Type
red yeast rice 600 mg tablet 1,200 mg PO DAILY Supplement 11/13/15 12/03/23 History
acyclovir 400 mg tablet 400 mg PO BID Infection 10/22/22 12/03/23 History
coQ10 (ubiquinol) 100 mg capsule 100 mg PO DAILY Supplement 10/22/22 12/03/23 History
cyanocobalamin (vitamin B-12) 1,000 mcg PO DAILY Supplement 10/22/22 12/03/23 History
1,000 mcg tablet
denosumab 120 mg/1.7 mL (70 mg/mL) 120 mg SC Q5MUNEE Cancer 10/22/22 12/03/23 History
subcutaneous solution (Xgeva)
loratadine 10 mg tablet (Claritin) 10 mg PO DAILY PRN allergies 10/22/22 12/03/23 History
tamsulosin 0.4 mg capsule (Flomax) 0.4 mg PO QPM Urinary issue 10/22/22 12/03/23 History
zolpidem 5 mg tablet (Ambien) 5 mg PO HS PRN insomnia 01/15/23 12/03/23 History
furosemide 80 mg tablet (Lasix) 80 mg PO DAILY Fluid 11/04/23 12/03/23 History
Retention/Swelling
ambrisentan 5 mg tablet (Letairis) 5 mg PO DAILY Endothelin Receptor 11/21/23 12/03/23 History
Antag
guaifenesin 600 mg tablet, 600 mg PO BID Congestion 11/21/23 12/03/23 History
extended release 12 hr (Mucinex)
sildenafil (pulm.hypertension) 20 20 mg PO TID pulmonary hypertension 11/21/23 12/03/23 History
mg tablet
sulfamethoxazole 800 1 tab PO MOWEFR@0800 prophylaxis 11/21/23 12/03/23 History
mg-trimethoprim 160 mg tablet
talquetamab-tgvs 1 dose SC Q2W multiple myeloma 11/21/23 12/03/23 History
cholecalciferol (vitamin D3) 25 25 mcg PO DAILY Supplement 11/22/23 12/03/23 History
mcg (1,000 unit) tablet (Vitamin
D3)
amoxicillin 875 mg-potassium 1 tab PO BID Infection #5 tabs 11/27/23 12/03/23 Rx
clavulanate 125 mg tablet
dexamethasone 4 mg tablet 8 mg (2 x 4 mg) PO BID #4 tabs 11/27/23 12/03/23 Rx
glipizide 5 mg tablet 5 mg PO BID@0800,1700 #60 tabs 11/27/23 12/03/23 Rx
metformin 1,000 mg tablet 1,000 mg PO BID@0800,1700 #60 tabs 11/27/23 12/03/23 Rx
mupirocin 2 % topical ointment 1 applic intranasal BID #15 grams 11/27/23 12/03/23 Rx
Review of Systems
-
All other systems: Negative unless noted
Physical Exam
Vital Signs
Temp Pulse Resp BP Pulse Ox
37.2 C 93 26 88/52 92
12/03/23 07:30 12/03/23 05:45 12/03/23 05:45 12/03/23 05:43 12/03/23 05:45
Lab Results
12/03/23 06:20
12/03/23 06:20
Troponin I < 0.012 ng/ml 12/03/23 00:53
Tdn-P-Ltqbqsqstry Pept 1770 pg/ml 12/03/23 00:53
Physical Exam
General: Other (Chronically ill-appearing, markedly uncomfortable)
HEENT: Normocephalic
Respiratory: Other (Limited exam, markedly diminished on left, relatively clear on right but patient is very limited in ability to take deep breaths)
Cardiac: Murmur (Soft systolic murmur at base, JVD okay)
GI: Non Tender (Patient upright limited exam) and Non Distended
Musculoskeletal: No Edema
Skin: Warm and Other
Neuro: AO x 3
Psych: Other (And severe pain)
Impression / Plan
-
Primary Airport Attendant: Dr. Ginger Lal
PCP: Dr. Hunter
Impression:
-Left pleural effusion with severe pleuritic pain
-Acute kidney injury
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
-Admission to [facility], discharged 11/19/2023 after initiation of Talvey (talquetamab) therapy for refractory myeloma
-Active Multiple myeloma
-Diverticular abscess, treated with Augmentin, with hx diverticulitis 2015
-Ching-Splenic hematoma following fall 2023
-Recent left lower lobe pneumonia 10/2023
-Recent Pseudomonas bacteremia
-Concern for septic emboli of lungs by review of records from [place], not confirmed
-Pulmonary hypertension and chronic RV dysfunction/heart failure with preserved ejection fraction
-Mild aortic stenosis
-Hypertension
-Dyslipidemia on red yeast rice
-CT imaging noting coronary atherosclerosis without history of ME
-Aortic atherosclerosis without aneurysm
-Right bundle branch block
-Type 2 diabetes mellitus
-Fatty liver infiltration
-Hx prostate cancer status post prostatectomy
-Degenerative joint disease of lumbar spine
-Hyponatremia
Echocardiogram 08/30/2023: Ejection fraction 55 to 60%, D-shaped septum in systole and diastole consistent with RV pressure and volume overload, mild aortic stenosis with mean gradient of 11 mmHg aortic valve area 1.5 cm�, mild TR with PA systolic of
55 mmHg
Echo 11/05/2023: Mildly reduced left ventricular systolic function. Global hypokinesis. Abnormal (paradoxical) septal motion consistent with left bundle branch block. Flattened septum in systole consistent with RV pressure overload. Left ventricular
ejection fraction is 40-45 %. Trace mitral regurgitation. Aortic valve peak/mean gradients are 23/15 mmHg. MARYELLEN 1.2 cm2. Mild aortic stenosis. Estimated pulmonary artery pressure of 30-35 mmHg.
Right heart catheterization 09/13/2023
Hemodynamics (mmHg):
RA (m) : 13
RV (s/d,m) : 77/12, 17
PA (s/d, m) : 77/23, 48
PCWP (m) : 18
Cardiac Output : 5.2 L/min
Cardiac Index : 2.5 L/min/m-2
Systemic vascular resistance: 13.5 Wood units or 1077 inztx-nni-op(-5)
Pulmonary vascular resistance: 5.8 Wood units or 461 cogup-xuo-ct(-5)
Plan:
He presents with a very large left pleural effusion significantly increased since the chest CT of November 20.
I suspect his cardiac status is largely unchanged.
At this point he does not seem volume overloaded so my concern is that his effusion relates more to an inflammatory infectious process rather than heart failure in the setting of severe left chest pain.
Agree with probably proceeding with thoracentesis. Presumably he will need a chest tube if there is evidence of empyema.
Colchicine might be a good agent to consider within the limits of renal function for pain relief after his thoracentesis.
Continue supportive care with norepinephrine, antibiotics as per primary service.
Since there is no evidence of heart failure at present agree with holding furosemide. Continue Ambrisentan, hold sildenafil until blood pressure rises.
He may need a follow-up echo to exclude pericardial effusion, but at present okay to hold off. He is scheduled for a CT scan of the abdomen and pelvis and we will probably visualize the pericardium at that time.
Data Reviewed
-
EKG: Tracing Personally Visualized and interpreted (Sinus rhythm, right bundle branch block, PVCs, cannot exclude IMI)
Radiology: Image Personally Visualized and interpreted (Large left pleural effusion/atelectasis involving two thirds of left hemithorax)
Labs: Labs Reviewed by me (Hemoglobin 10 white count 8.3, left shift platelets 123, sodium 132, BUN and creatinine 59 and 1.7, creatinine had been 1.2 on November 26 and 1.3 on November 29, sodium 132, calcium 7.4, proBNP 1770, undetectable troponin, proBNP
had been 7260, lowest recent troponin was 1190)
Old Records: Reviewed
[2023-12-03] MEDS: ULTRAM 25 MG PO (11:01)
[2023-12-03 11:04] LABS: Phosphorus 4.4 mg/dl (2.5-4.5)
--- NOTE | 2023-12-03 11:26 | CON.ID ---
Consultation
-
Date/Time Consultation Requested: December 03, 2023 0541
Date/Time Consultation Performed: December 03, 2023 1130
Requesting Provider: Dr. Duong Dorantes
Performing Provider: Dr. Kamilah English
Reason for Consultation: Sepsis
Chief Complaint / Past History
Chief Complaint
Weakness and shortness of breath
History of Present Illness
73-year-old male with diabetes mellitus, hypertension, heart failure with reduced EF, CKD 3, refractory multiple myeloma and failed several treatment course and received new regimen Talvey at [facility] early November who has had multiple recent
hospitalizations including pneumonia, Pseudomonas and anaerobic bacteremia, and most recently hospitalized from November 20 to November 26 with ICANS from Talvey, and mild asymptomatic diverticulitis seen on CAT scan. He was transition to Augmentin which he
completed at home on November 28. He presented back to the hospital early this morning due to progressive weakness, fever of over 101 last night, shortness of breath, and cough. Chest x-ray shows large left pleural effusion with associated atelectasis
and or pneumonia. He underwent thoracentesis this morning. No headache. No rhinorrhea. No chest pain. No nausea or vomiting. Had diarrhea towards the end of Augmentin which resolved after off of the antibiotic. No dysuria or urinary urgency.
No ill contacts.
Past History
Additional Past Medical History:
Refractory Multiple myeloma, recent new regimen Talvey
DM type 2
Hypertension
Congestive heart failure slight reduced EF
Pulmonary hypertension
Nephrolithiasis
CKD3b
Pulmonary nodules
Diverticulitis
Fatty liver
hx [place] 9 prostate cancer s/p prostatectomy/XRT (2020) with recurrence by PET
Allergy History:
bacitracin [From Neosporin ([id number])] Allergy (Verified 09/09/23 10:19)
redness
neomycin [From Neosporin (xaz-avt-soskn)] Allergy (Verified 09/09/23 10:19)
redness
polymyxin B [From Neosporin (eno-zlr-orwru)] Allergy (Verified 09/09/23 10:19)
redness
Medications Reviewed: Yes
Current Antibiotics:
zosyn
Social History
Tobacco: Non-Smoker
Alcohol: None
Drug: None
Personal:
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
Family History
Family History: Not Pertinent
Review of Systems
Review of Systems
General: Fever, Chills and Change in Appetite
HEENT: Negative Sinus Problems, Headache or Pharyngitis
Cardiovascular: Edema; Negative Chest Pain
Respiratory: Dyspnea and Cough
Gasteroenterology: Other (no diarrhea); Negative Nausea or Vomiting
Genital / Urological: Negative Dysuria or Flank Pain
Endocrine: Weakness and Fatigue
Skin / Hair / Nails: Negative Rash
Neurological: Negative Headache or Dizziness
All systems: All other systems were reviewed and were negative
Vital Signs
Temp Pulse Resp BP Pulse Ox
99 F 93 26 88/52 92
12/03/23 07:30 12/03/23 05:45 12/03/23 05:45 12/03/23 05:43 12/03/23 05:45
Physical Exam
Physical Exam
Constitutional: Comfortable
Head: Other (No frontal or maxillary sinus tenderness)
Eyes: Sclera Anicteric
Cardiovascular: Regular Rate and S1/S2
Pulmonary: Other (Decreased breath sound left base)
Gastrointestinal: Soft, Non Tender, Non Distended and Normal Bowel Sounds
Genito-Urinary: Negative CVA Tenderness
Extremities: Negative Edema
Neurological: AO x 3 and Tremors; Negative Meningeal Signs
Lab / Diagnostic Study Results
12/03/23 06:20
12/03/23 06:20
Abs Immat Gran (auto) 0.2 10^3/uL (0-0.05) H 12/03/23 06:20
Absolute Neuts (auto) 6.7 10^3/uL (1.4-6.5) H 12/03/23 06:20
Absolute Lymphs (auto) 1.0 10^3/uL (1.2-3.4) L 12/03/23 06:20
Absolute Monos (auto) 0.5 10^3/uL (0.1-0.6) 12/03/23 06:20
Absolute Basos (auto) 0.0 10^3/uL (0-0.2) 12/03/23 06:20
Immature Gran % 1.8 % (0-0.5) H 12/03/23 06:20
Neutrophils % 80.4 % (42.2-75.2) H 12/03/23 06:20
Lymphocytes % 11.5 % (20.5-51.1) L 12/03/23 06:20
Monocytes % 5.7 % (1.7-9.3) 12/03/23 06:20
Eosinophils % 0.4 % (0-6) 12/03/23 06:20
Basophils % 0.2 % (0-2) 12/03/23 06:20
Lactic Acid 1.8 mmol/L (0.7-2.0) 12/03/23 00:26
Microbiology Results
Micro:
12/03/23 00:27 Influenza Types A & B (ARMEN) - Final
Nasal Swab Negative for Influenza A & B, NAAT
Negative results must be combined with clinical observations
and patient history.
Nucleic Acid Amplification test (NAAT)performed on the
[employer] platform.
12/03/23 00:26 Blood Culture - Pending
Blood/Venous
12/03/23 00:26 Blood Culture - Pending
Blood/Venous
12/03/23 CXR: Moderate to large left pleural effusion with associated atelectasis and/or pneumonia, progressed.
Assessment / Plan
# PNA
# Left pleural effusion
# hypotension on pressor
- s/p thora of 1.1L punch color fluid.
Fluid exudative
Await culture, path
- Continue Zosyn
- Follow blood cx's.
# Refractory multiple myeloma , recent Talvey
- Continue prophylactic acyclovir and Bactrim MWF.
--- NOTE | 2023-12-03 11:52 | PTCARENOTE ---
pt currently off floor for thoracentesis.
[2023-12-03 12:32] LABS: Body Fluid pH 7.41
[2023-12-03 12:55] LABS: Body Fluid Mononuclear 24.2 %; Body Fluid Polymorphonuclear 75.8 %; Body Fluid WBC 1007 /CUMM
[2023-12-03 13:20] LABS: Body Fluid Amylase 59 U/L; Body Fluid Glucose 172 mg/dl; Body Fluid LDH 323 U/L; Body Fluid Protein 5.7 g/dl; Body Fluid Triglycerides < 30 mg/dl
[2023-12-03 13:44] LABS: Body Fluid Second Tech AMA
[2023-12-03] MEDS: ROXICODONE 5 MG PO (14:16)
[2023-12-03 14:40] LABS: Glucose - Point of Care 205 mg/dl (70-99)
--- NOTE | 2023-12-03 14:46 | W.PN.UPDATE ---
Update Note
Progress Note Update
Nonbillable note
Admission H&P/lab/imaging see review
Shock -suspected sepsis. Source unclear. Maintain on empiric antibiotic and added Zosyn. Small was on Levophed wean off as possible. Earlier in the month patient had CT abdomen pelvis showing likely hepatic hemangioma and splenic hematoma.
Repeat CT abdomen pelvis ordered
Left-sided effusion -s/p drainage of 1.1 L ventricular fluid. Await cytopathology and culture report.
Acute kidney injury -suspected with diarrhea and hypotension. Lasix needs to be held with simultaneous ongoing hypotension as well. Nephrology help appreciated.
[2023-12-03] MEDS: NOVOLOG FLEXPEN-LOW RESISTANCE 2 UNITS SC (15:12)
[2023-12-03 18:02] LABS: Glucose - Point of Care 331 mg/dl (70-99)
[2023-12-03] MEDS: NOVOLOG FLEXPEN-LOW RESISTANCE 4 UNITS SC (18:09)
[2023-12-03] MEDS: FLOMAX 0.400000000000000022 MG PO (18:10)
--- NOTE | 2023-12-03 19:47 | PTCARENOTE ---
day shift note. assessment as chrted. pt weaned down to 1 mcg/min of levophed to keep map above 65. pt went to [facility] this am for thoracentesis on left side. 1100 mls drained per report from [facility], pt had ct scan of abdomen however he was not able to
drink the po contrast. oob in chair most of the day with family in room. medicated for left upper back pain with ultram and erin per order. pt reports much better relief of pain with 5 mg roxicodone. sinus rythym on monitor.
[2023-12-03 21:01] LABS: Glucose - Point of Care 383 mg/dl (70-99)
[2023-12-03 21:48] LABS: Glucose - Point of Care 375 mg/dl (70-99)
[2023-12-04] VITALS (43 sets, daily range): BP systolic 77–136; BP diastolic 46–84; PULSE 83–87; O2SAT 93–94; BMI 27.7
[2023-12-04] MEDS: ZOSYN 50 IV ×3 (05:37→17:27)
[2023-12-04 05:41] LABS: Hematocrit 29.7 % (39.0-52.0); Hemoglobin 9.9 g/dL (13.0-18.0); Mean Corp Hgb Conc. 33.3 g/dL (33.0-37.0); Mean Corpuscular Hgb 32.1 pg (27.0-31.0); Mean Corpuscular Volume 96.4 fL (80.0-94.0); Mean Platelet Volume 10.5 fL (7.4-10.4); Platelet Count 139 10^3/uL (130-400); Red Blood Cell Count 3.08 10^6/uL (4.70-6.10); Red Cell Dist. Width 19.4 % (11.5-14.5); White Blood Cell Count 10.3 10^3/uL (4.8-10.8)
[2023-12-04 06:28] LABS: Blood Urea Nitrogen 63 mg/dl (9-20); Calcium 7.4 mg/dl (8.4-10.2); Carbon Dioxide 22 mmol/L (22-30); Chloride 103 mmol/L (98-107); Estimated Creatinine Clearance 40 ml/min; Glucose 270 mg/dl (70-99); Potassium 4.7 mmol/L (3.5-5.1); Sodium 131 mmol/L (135-145); eGFR 48.55
[2023-12-04 07:44] LABS: Glucose - Point of Care 337 mg/dl (70-99)
[2023-12-04] MEDS: NOVOLOG FLEXPEN-LOW RESISTANCE 4 UNITS SC (08:27)
[2023-12-04] MEDS: ZOVIRAX 400 MG PO ×2 (08:28→19:41)
[2023-12-04] MEDS: BACTROBAN 2% OINTMENT 1 APPLIC NASAL ×2 (08:28→19:41)
[2023-12-04] MEDS: DECADRON 8 MG PO ×2 (08:28→19:41)
[2023-12-04] MEDS: VITAMIN D3 (cholecalciferol) 25 MCG PO (08:28)
[2023-12-04] MEDS: MUCINEX 600 MG PO ×2 (08:28→19:41)
--- NOTE | 2023-12-04 09:32 | W.PN.CARDCBS ---
Today's Communication / Plan
-
Hold lasix for now, follow Cr and daily weights
Impression / Plan
-
Primary Lasting Room Supervisor: Dr. Ginger Lal
PCP: Dr. Hunter
Impression:
-Left pleural effusion with severe pleuritic pain
-Acute kidney injury
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
-Admission to [facility], discharged 11/19/2023 after initiation of Talvey (talquetamab) therapy for refractory myeloma
-Active Multiple myeloma
-Diverticular abscess, treated with Augmentin, with hx diverticulitis 2015
-Ching-Splenic hematoma following fall 2023
-Recent left lower lobe pneumonia 10/2023
-Recent Pseudomonas bacteremia
-Concern for septic emboli of lungs by review of records from [place], not confirmed
-Pulmonary hypertension and chronic RV dysfunction/heart failure with preserved ejection fraction
-Mild aortic stenosis
-Hypertension
-Dyslipidemia on red yeast rice
-CT imaging noting coronary atherosclerosis without history of MD
-Aortic atherosclerosis without aneurysm
-Right bundle branch block
-Type 2 diabetes mellitus
-Fatty liver infiltration
-Hx prostate cancer status post prostatectomy
-Degenerative joint disease of lumbar spine
-Hyponatremia
Echocardiogram 08/30/2023: Ejection fraction 55 to 60%, D-shaped septum in systole and diastole consistent with RV pressure and volume overload, mild aortic stenosis with mean gradient of 11 mmHg aortic valve area 1.5 cm�, mild TR with PA systolic of
55 mmHg
Echo 11/05/2023: Mildly reduced left ventricular systolic function. Global hypokinesis. Abnormal (paradoxical) septal motion consistent with left bundle branch block. Flattened septum in systole consistent with RV pressure overload. Left ventricular
ejection fraction is 40-45 %. Trace mitral regurgitation. Aortic valve peak/mean gradients are 23/15 mmHg. MARYELLEN 1.2 cm2. Mild aortic stenosis. Estimated pulmonary artery pressure of 30-35 mmHg.
Right heart catheterization 09/13/2023
Hemodynamics (mmHg):
RA (m) : 13
RV (s/d,m) : 77/12, 17
PA (s/d, m) : 77/23, 48
PCWP (m) : 18
Cardiac Output : 5.2 L/min
Cardiac Index : 2.5 L/min/m-2
Systemic vascular resistance: 13.5 Wood units or 1077 [id number](-5)
Pulmonary vascular resistance: 5.8 Wood units or 461 dzquo-juc-gk(-5)
Plan:
He presents with a very large left pleural effusion significantly increased since the chest CT of November 20
Underwent L thoracenteisis with removal of over 1L of pleural fluid
Wean O2 as able
Does not appear to be overtly volume overloaded on exam
Just weaned off pressor so would hold off on diuretics at least for today
Continue Ambrisentan, hold sildenafil until blood pressure stabilizes
Progress Note - Lasting Room Supervisor
Subjective
Date of Service: December 04, 2023
NAOE. Pressors weaned off. Resting comfortably OOB to chair. Tells me breathing is more comfortable following thoracentesis.
Objective
Labs:
12/04/23 05:07
12/04/23 05:07
Labs
Hgb 9.9 g/dL (13.0-18.0) L 12/04/23 05:07
Hct 29.7 % (39.0-52.0) L 12/04/23 05:07
Plt Count 139 10^3/uL (130-400) 12/04/23 05:07
Sodium 131 mmol/L (135-145) L 12/04/23 05:07
Potassium 4.7 mmol/L (3.5-5.1) 12/04/23 05:07
BUN 63 mg/dl (9-20) H 12/04/23 05:07
Creatinine 1.5 mg/dL (0.7-1.3) H 12/04/23 05:07
Glucose 270 mg/dl (70-99) H 12/04/23 05:07
Troponins
12/03/23 12/03/23
00:17 00:53
Troponin I Cancelled < 0.012
Vital Signs and I&O:
Vital Signs
Temp Pulse Resp BP Pulse Ox
97.9 F 74 18 115/84 98
12/04/23 02:53 12/04/23 03:30 12/04/23 03:30 12/04/23 03:30 12/04/23 03:46
Vital Signs
Temp Pulse Resp BP Pulse Ox
97.9 F 74 18 115/84 98
12/04/23 02:53 12/04/23 03:30 12/04/23 03:30 12/04/23 03:30 12/04/23 03:46
Intake & Output
12/02/23 12/03/23 12/04/23 12/05/23
06:59 06:59 06:59 06:59
Intake Total 240 / 240
Output Total 500 / 500
Balance -260 / -260
Physical Exam
Physical Exam
Gen: NAD, AAOx3, OOB to chair
HEENT: NC/AT, sclera anicteric
Neck: No JVD
CV: RRR, NL s1/s2, no M/R/G
Lungs: No increased WOB on 2L NC
Abd: S/ND
Ext: No LE edema
Skin: Warm, dry
Neuro: Non-focal
--- NOTE | 2023-12-04 10:36 | W.PN.ID1 ---
Date of Service
Date of Service: December 04, 2023
Today's Communication
Consult Pulm.
Assessment / Plan
# Left empyema
# Hypotension resolved
# Immunocompromised host: Refractory multiple myeloma, recent Talvey
- s/p thora of 1.1L punch color fluid.
Fluid exudative
Cx: GNR
- Consult pulmonary
- Continue Zosyn pending identification of organism
- Continue prophylactic acyclovir and Bactrim MWF.
#Additional Past Medical History:
Refractory Multiple myeloma, recent new regimen Talvey
DM type 2
Hypertension
Congestive heart failure slight reduced EF
Pulmonary hypertension
Nephrolithiasis
CKD3b
Pulmonary nodules
Diverticulitis
Fatty liver
hx [place] 9 prostate cancer s/p prostatectomy/XRT (2020) with recurrence by PET
Chief Complaint
-: Pneumonia and Other (empyema)
Subjective / Review of Systems
He feels much improved today.
SOB/cough better after thoracentesis.
and daughter at bedside.
Vital Signs / Physical Exam
Vital Signs
Vital Signs
Temp Pulse Resp BP Pulse Ox
97.9 F 99 24 104/63 95
12/04/23 02:53 12/04/23 10:30 12/04/23 10:30 12/04/23 10:25 12/04/23 08:00
Physical Exam
Constitutional: No Acute Distress
Cardiovascular: Regular Rate and S1/S2
Pulmonary: Other (Decreased BS left base)
Gastrointestinal: Soft, Non Tender and Non Distended
Extremities: Negative Edema
Neurological: AO x 3
Objective Data
Lab Data
Lab Results
12/04/23 05:07
12/04/23 05:07
Estimated Creat Clear 40 ml/min 12/04/23 05:07
Lactic Acid 1.8 mmol/L (0.7-2.0) 12/03/23 00:26
Total Bilirubin 0.6 mg/dl (0.2-1.3) 12/03/23 00:53
AST 15 U/L (17-59) L 12/03/23 00:53
ALT 18 U/L (0-50) 12/03/23 00:53
Alkaline Phosphatase 69 U/L (38-126) 12/03/23 00:53
Most recent labs reviewed.
Micro Results:
12/03/23 12:02 Body Fluid Culture - Preliminary
Pleural Fluid Gram negative bacilli
Gram Stain - Preliminary
12/03/23 00:26 Blood Culture - Preliminary
Blood/Venous No Growth in 24 hours- Final report to follow
12/03/23 00:26 Blood Culture - Preliminary
Blood/Venous No Growth in 24 hours- Final report to follow
12/03/23 12:02 Fungal Smear - Pending
Pleural Fluid Fungal Culture - Preliminary
Culture in progress.
Positive cultures are reported as soon as detected.
Final report to follow in four to five weeks.
12/03/23 00:27 Influenza Types A & B (ARMEN) - Final
Nasal Swab Negative for Influenza A & B, NAAT
Negative results must be combined with clinical observations
and patient history.
Nucleic Acid Amplification test (NAAT)performed on the
[employer] platform.
12/03/23 CXR: Moderate to large left pleural effusion with associated atelectasis and/or pneumonia, progressed.
Care Review
Plan reviewed with: Physician (Dr. Harjinder Dorantes)
--- NOTE | 2023-12-04 10:57 | W.PN.NEPH.PH ---
Today's Communication / Plan
-
- hold lasix and fluids
Assessment/Plan
-
Assessment
Multiple myeloma refractory to treatment
Right ventricular heart failure with preserved ejection fraction
Diabetes mellitus type 2
Acute kidney injury
Hyponatremia
Anemia
Left lower lobe pneumonia/effusion
Diarrhea
Diverticulitis
Liver abscess
Plan
ANAI likely from diarrhea
Hyponatremia also likely potentiated by diarrhea
s/p L thora with 1.1 L fluid removal, breathing is improved
Weakness may be related to immunotherapy. His sodium level was not quite low enough to suspect that this was a cause.
urine studies not completed
hold lasix and IVF at this time
Continue antibiotic coverage for diverticulitis and abscess
-
-
Date of Service: December 04, 2023
CC / HPI / ROS
-
Chief Complaint:
ANAI
History of Present Illness:
diarrhea
ANAI
SOB s/p thora
Review of Systems:
feeling better today
Cr improved from prior
Labs
-
Labs:
WBC 10.3 10^3/uL (4.8-10.8) 12/04/23 05:07
RBC 3.08 10^6/uL (4.70-6.10) L 12/04/23 05:07
Hgb 9.9 g/dL (13.0-18.0) L 12/04/23 05:07
Hct 29.7 % (39.0-52.0) L 12/04/23 05:07
Plt Count 139 10^3/uL (130-400) 12/04/23 05:07
Sodium 131 mmol/L (135-145) L 12/04/23 05:07
Potassium 4.7 mmol/L (3.5-5.1) 12/04/23 05:07
Chloride 103 mmol/L (98-107) 12/04/23 05:07
Carbon Dioxide 22 mmol/L (22-30) 12/04/23 05:07
BUN 63 mg/dl (9-20) H 12/04/23 05:07
Creatinine 1.5 mg/dL (0.7-1.3) H 12/04/23 05:07
eGFR 48.55 12/04/23 05:07
Glucose 270 mg/dl (70-99) H 12/04/23 05:07
Calcium 7.4 mg/dl (8.4-10.2) L 12/04/23 05:07
Phosphorus 4.4 mg/dl (2.5-4.5) 12/03/23 06:20
Juj-P-Peqzqgfwqmm Pept 1770 pg/ml 12/03/23 00:53
Albumin 2.6 g/dl (3.5-5.0) L 12/03/23 00:53
Physical Exam
-
Vital Signs:
Vital Signs
Temp Pulse Resp BP Pulse Ox
97.9 F 99 24 104/63 95
12/04/23 02:53 12/04/23 10:30 12/04/23 10:30 12/04/23 10:25 12/04/23 08:00
Cardiovascular:: Regular rate and rhythm
Respiratory:: Bilateral: Coarse
Lung Excursion:: Normal
Abdomen:: Nontender and Soft
Bowel Sounds:: Normal
Extremity Edema:: None: Bilateral:
Flowers Catheter: No
[2023-12-04] MEDS: NON-FORMULARY ITEM 5 MG PO (11:02)
--- NOTE | 2023-12-04 11:12 | CON.PUL ---
Consultation
Consultation Request
Date/Time Consultation Requested: 12/04/2023-11:30 AM
Date/Time Consultation Performed: 12/04/2023-11:30 AM
Requesting Provider: Hospitalist
Performing Provider: Dr. Vargas
Reason for Consultation: Pleural effusion/infection
Medical History
-
Chief Complaint: Shortness of breath
History of Present Illness:
73-year-old male with a history of prostate cancer and multiple myeloma refractory to treatment as well as diastolic dysfunction developed significant shortness of breath noted to have large left pleural effusion status postthoracentesis-feeling
much improved-pulmonary consulted for shortness of breath/pleural effusion/infection 12/04/2023. He is feeling much improved after the thoracentesis. He denies any chest pain, pleurisy, productive cough, chest congestion, fevers, chills, night
sweats, abdominal pain, or increased leg swelling.
Past Medical History
Past Medical History: None (Prostate cancer status post prostatectomy and radiation-Dr. Escalona and [facility]. Multiple myeloma. Diabetes. B12 deficiency. Diastolic CHF. Hypertension. Pulm hypertension. Stem cell harvest station 2021.)
Social History
Tobacco: Former Smoker (Quit over 40 years ago)
Alcohol: None
Drug: None
Personal:
Living: With Family
Occupational Exposures: No known asbestos exposure
Environmental Exposures: No known tuberculosis exposure
Family History
Family History: Reviewed & Not Pertinent
Allergies / Home Medications
Allergies
Allergy/AdvReac Type Severity Reaction Status Date / Time
bacitracin Allergy redness Verified 09/09/23 10:19
[From Neosporin
([id number])]
neomycin Allergy redness Verified 09/09/23 10:19
[From Neosporin
(kso-emz-wmweu)]
polymyxin B Allergy redness Verified 09/09/23 10:19
[From Neosporin
(sbp-[id number])]
Home Medications
�Medication �Instructions �Recorded �Confirmed �Last Taken �Type
red yeast rice 600 mg tablet 1,200 mg PO DAILY Supplement 11/13/15 12/03/23 11/21/23 History
acyclovir 400 mg tablet 400 mg PO BID Infection 10/22/22 12/03/23 11/21/23 History
coQ10 (ubiquinol) 100 mg capsule 100 mg PO DAILY Supplement 10/22/22 12/03/23 11/21/23 History
cyanocobalamin (vitamin B-12) 1,000 mcg PO DAILY Supplement 10/22/22 12/03/23 11/21/23 History
1,000 mcg tablet
denosumab 120 mg/1.7 mL (70 mg/mL) 120 mg SC [id number] Cancer 10/22/22 12/03/23 1 Month Ago History
subcutaneous solution (Xgeva) ~10/22/23
loratadine 10 mg tablet (Claritin) 10 mg PO DAILY PRN allergies 10/22/22 12/03/23 Unknown History
tamsulosin 0.4 mg capsule (Flomax) 0.4 mg PO QPM Urinary issue 10/22/22 12/03/23 11/20/23 History
zolpidem 5 mg tablet (Ambien) 5 mg PO HS PRN insomnia 01/15/23 12/03/23 Unknown History
furosemide 80 mg tablet (Lasix) 80 mg PO DAILY Fluid 11/04/23 12/03/23 11/21/23 History
Retention/Swelling
ambrisentan 5 mg tablet (Letairis) 5 mg PO DAILY Endothelin Receptor 11/21/23 12/03/23 11/21/23 History
Antag
guaifenesin 600 mg tablet, 600 mg PO BID Congestion 11/21/23 12/03/23 11/21/23 History
extended release 12 hr (Mucinex)
sildenafil (pulm.hypertension) 20 20 mg PO TID pulmonary hypertension 11/21/23 12/03/23 11/21/23 History
mg tablet
sulfamethoxazole 800 1 tab PO MOWEFR@0800 prophylaxis 11/21/23 12/03/2324 History
mg-trimethoprim 160 mg tablet
talquetamab-tgvs 1 dose SC Q2W multiple myeloma 11/21/23 12/03/23 11/17/23 History
cholecalciferol (vitamin D3) 25 25 mcg PO DAILY Supplement 11/22/23 12/03/23 11/21/23 History
mcg (1,000 unit) tablet (Vitamin
D3)
amoxicillin 875 mg-potassium 1 tab PO BID Infection #5 tabs 11/27/23 12/03/23 Unknown Rx
clavulanate 125 mg tablet
dexamethasone 4 mg tablet 8 mg (2 x 4 mg) PO BID #4 tabs 11/27/23 12/03/23 Unknown Rx
glipizide 5 mg tablet 5 mg PO BID@0800,1700 #60 tabs 11/27/23 12/03/23 Unknown Rx
metformin 1,000 mg tablet 1,000 mg PO BID@0800,1700 #60 tabs 11/27/23 12/03/23 Unknown Rx
mupirocin 2 % topical ointment 1 applic intranasal BID #15 grams 11/27/23 12/03/23 Unknown Rx
Review of Systems
-
Unable to Obtain full review of systems at this time due to: Other (Per HPI)
Vitals / Labs / Diagnostic Testing
Vital Signs
Temp Pulse Resp BP Pulse Ox
97.9 F 99 24 104/63 95
12/04/23 02:53 12/04/23 10:30 12/04/23 10:30 12/04/23 10:25 12/04/23 08:00
Lab Data
12/04/23 05:07
12/04/23 05:07
Microbiology
12/03/23 12:02 Pleural Fluid Body Fluid Culture - Preliminary
Gram negative bacilli
12/03/23 12:02 Pleural Fluid Gram Stain - Preliminary
12/03/23 00:26 Blood/Venous Blood Culture - Preliminary
No Growth in 24 hours- Final report to follow
12/03/23 00:26 Blood/Venous Blood Culture - Preliminary
No Growth in 24 hours- Final report to follow
12/03/23 12:02 Pleural Fluid Fungal Culture - Preliminary
Culture in progress.
Positive cultures are reported as soon as detected.
Final report to follow in four to five weeks.
12/03/23 00:27 Nasal Swab Influenza Types A & B (ARMEN) - Final
Negative for Influenza A & B, NAAT
Negative results must be combined with clinical observations
and patient history.
Nucleic Acid Amplification test (NAAT)performed on the
[employer] platform.
Diagnostic Testing:
Physical Exam
-
Exam:
Well-nourished and well-developed in no apparent distress
HEENT-atraumatic, normocephalic
Neck-supple, no JVD, no bruit
Heart-regular rate and rhythm-no murmurs, rubs or gallops
Chest with diminished breath sounds at the left base and rare crackles and no wheezes
Back-no tenderness
Abdomen-soft, nontender, nondistended, no hepatosplenomegaly
Extremities-no cyanosis, clubbing, edema and good peripheral pulses
Integument-intact, no rashes, lesions or ecchymosis
Neurology-alert and oriented, nonfocal motor and sensory exam
Assessment
-
73-year-old male with a history of prostate cancer and multiple myeloma refractory to treatment as well as diastolic dysfunction developed significant shortness of breath noted to have large left pleural effusion status postthoracentesis-feeling
much improved-pulmonary consulted for shortness of breath/pleural effusion/infection 12/04/2023.
Assessment
Large left pleural effusion
Status post left thoracentesis-1100 mL 12/03/2023-exudate
pH 7.5-not consistent with empyema
Gram stain positive-cultures pending
Anemia-macrocytic
Hyponatremia
Chronic renal insufficiency
Hyperglycemia
Conditions present prior to admission:
Recent hospitalization for diverticulitis 09/2023
Recent hospitalization 11/21/2023--neurotoxicity related to Talvey-11/2023
Prostate cancer status post prostatectomy 2020 with bilateral pelvic lymphadenectomy and radiation-Dr. Escalona and [facility].
Multiple myeloma.
Diabetes.
B12 deficiency.
Diastolic CHF.
Hypertension.
Hyperlipidemia
Pulmonary hypertension.
Diastolic dysfunction with preserved left ventricular function
Mild aortic stenosis
Lumbar spine disease
History of diverticulitis 2015
Renal calculi
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
Cataract surgery
Plan
Respiratory decompensation likely due to large left pleural omfykwwq-idbjhyjpzztqo-vzdmjmq-small pleural effusion was noted CT chest 11/03/2023 and 1 month later large pleural effusion
Supplemental oxygen
Incentive spirometry
CT abdomen reviewed-significant amounts of lung windows noted-moderate sized persistent pleural effusion
Recommend complete drainage
Contacted interventional radiology-recheck pH and cultures
Check cultures
Broad-spectrum antibiotics
Infectious disease following-correspondence reviewed
Diuresis as tolerated
Monitor renal function, electrolytes, intake/output, lower extremity edema and weight
Replace electrolytes as needed
Cardiology following-correspondence reviewed
Monitor renal function
Nephrology following-correspondence reviewed
DVT prophylaxis
Nutrition
Early mobilization
Outpatient pulmonary follow-up with Dr. Marks
Diagnostic data:
Chest x-ray 03/12/2015-NAD
Chest x-ray 10/22/2022-left lower lobe pneumonia
Chest x-ray 09/09/2023-hypoinflated, basilar atelectasis, no evidence for right-sided rib fracture
Chest x-ray 12/03/2023-status post left thoracentesis, no pneumothorax
CT abdomen and pelvis 06/30/2020-few tiny pulmonary nodules developed since 2017, 2.2 mm right lower lobe, 2.7 mm right lower lobe, 1.2 mm right lower lobe and 3 mm right lower lobe, chronic diverticulosis
CT chest 08/30/2023-numerous small well-defined pulmonary nodules mainly in the upper to mid lungs relatively sparing the lower lungs have increased in size and number when compared to PET scan June 2022, cavitation of a nodule in the apical
region of the right upper lobe, diffuse fatty infiltration
CT abdomen 09/09/2023-mild to moderate dependent atelectasis posterior right lung, several small well-defined pulmonary nodules in the right lung appears unchanged from previous CT, fatty infiltration of the liver, no abscess identified, right-sided
colonic diverticulitis
CT abdomen 12/03/2023-suspected small hepatic abscess, appearance of spleen with infarcts, tiny umbilical hernia, large left lung consolidation with air bronchograms likely representing pneumonia with moderate pleural effusion
CT chest 11/03/2023-small left pleural effusion, moderate left lower lobe consolidation
Thoracentesis 12/03/23-1100 mL punch colored pleural fluid removed
Lower extremity ultrasound 11/21/2023-no evidence for DVT bilaterally
Echocardiogram 03/29/2023-EF 60-65%, trace mitral regurgitation, mildly stenotic aortic valve
Echocardiogram 11/05/2023-EF 40-45%, mild aortic stenosis
PET scan 12/22/2020-FDG avid mixed lytic sclerotic expansile lesion lateral left sixth ribs suspicious for metastatic disease, FDG avid sclerotic focus proximal right tibia suspicious for metastatic disease, T6/7 vertebral area also suspicious as
well as mildly enlarged left axillary lymph nodes
PET scan 06/21/2022-recurrent prostate cancer and prostatectomy surgical bed, moderate number of new small subcentimeter solid nodules in the lungs suspicious for metastatic disease
VQ scan 09/05/2023-low probability for pulm embolism
Data Reviewed
-
PFT: Report reviewed by me
EKG: Report reviewed by me
Radiology: Report reviewed by me
CT Scan: Image personally visualized and interpreted and Report reviewed by me
Ultrasound: Report reviewed by me
Medical Tests (Nuc Med, Echo etc): Report reviewed by me
Labs: Labs reviewed by me
Old Records: Reviewed
Total Time Spent with Patient (in minutes): 65
[2023-12-04] MEDS: NOVOLOG FLEXPEN-LOW RESISTANCE 5 UNITS SC (12:25)
[2023-12-04 12:31] LABS: Glucose - Point of Care 390 mg/dl (70-99)
--- NOTE | 2023-12-04 12:53 | VNURNOTE ---
Patient is current with [facility] since 11/27 w/SN, will monitor progress and plan at discharge.
--- NOTE | 2023-12-04 16:09 | CM ---
Patient with Hx multiple myeloma on chemo with Dx Shock -suspected sepsis, Lt Pleural effusion, Intermittent lethargy with weakness, acute ambulatory dysfunction, ANAI. O2 2L. Receiving IV Zosyn. PT & OT recommend HH.
Met with patient, Chanda and daughter Jaycee;
the patient resides in a 3 story house with 2 MP.
He has been independent in ADLs and ambulation.
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
The patient has no DME.
Patient is current with [facility] for SN & PT.
PCP - Eloy Hunter
Pharmacy - [facility]
The expressed concerns indicating she is overwhelmed with patient's care at home. Chanda says she does not know what to do to manage his DM - he had an episode with blood sugar near 300 at home, and she said she only knew to call the PCP. The
patient/family would like to have more knowledge/instruction and would welcome meeting with the DM Educator while here. The is thinking of hiring a skilled nurse caregiver at home to manage his diabetes on a daily basis. Caregiver list
provided.
expressed concern re; his O2 sat dropping at home and inability to ambulate/do stairs when he desats. Discussed possibility of creating first floor setup or installing a chair lift on stairs to second floor.
Message to Dr Dorantes & Margi, DM Educator with patient/ concerns re; diabetic education a & home O2 sats.
They mention that patient missed his chemo today which is [id number].
Plan home with resumption VN, with Caregiver list.
--- NOTE | 2023-12-04 16:10 | W.PN.HOSP.TC ---
Today's Communication/Plan
-
Follow-up pleural fluid culture report
Continue Zosyn
Pulmonology consult
IRAD consulted for repeat thoracentesis and likely CT tube placement
Assessment / Plan
Assessment / Plan
1. Septic shock - resolved
-Required small dose of Levophed support for first 24hr
-maintain on PRN midodrine at this point for SBP < 100
2. Left empyema
-Patient was found to having effusion on chest x-ray
-Lower left lung sections captured on CT abdomen pelvis reviewed. no large loculation.
-S/p drainage of 1.1 L punch colored pleural fluid on 12/02 TWBC 1007 PMN 76% LDH 323. fluid culture growing gram neg bacilli
-Post Thora x-ray still showing residual effusion
-Pulm was involved in care and plan to get repeat thoracentesis with likely CT tube placement
-ID on board and currently patient on Zosyn for rx
3. ANAI
-Creatinine elevated 1.7 at admission. Baseline of 1.1
-Avoid any nephrotoxic medication
-Lasix on hold.
-Nephrology is involved in care for further evaluation
4. Multiple myeloma
-This has remained somewhat refractory to treatments.
-Currently on dexamethasone/talvey
-Hbg 9.9 and plt 140k and continue monitoring.
-Continue prophylactic acyclovir and Bactrim mowefr
5. Type 2 diabetes mellitus
-Remains significantly uncontrolled
-started on novolog 5U ac and ISS
-last a1c of 7.3
-diabetic [employer] consulted
6. Pulm HTN
- continue ambrisentan, hold sildenafil due top hypotension
Prostate cancer status post prostatectomy 2020 with bilateral pelvic lymphadenectomy and radiation-Dr. Escalona and [facility].
Chronic Diastolic CHF
Essential Hypertension
Hyperlipidemia
Mild aortic stenosis
History of diverticulitis
History of nephrolithiasis
Cataract surgery
Full code
Care plan discussed with pulmonology/ID
Patient family at bedside and discussed plan for IRAD to do thoracentesis to CT tube.
Total time spent : 53 mins
I personally saw and examined the patient.
I have reviewed all diagnostic interpretations and treatment plans as written.
Time includes patient management by me, time spent at the patients bedside, time to review lab and imaging results, discussing patient care, documentation in the medical record, and time spent with the family or caregiver and discussing care plan
with RN/Consultants.
Anticipated Discharge: > 48 hours
Subjective/Interval History
-
Date of Service: December 04, 2023
Subjectively feeling better
remains hypoxic
afebrile in night
pressor remains on/off soft
Objective Data
-
Labs:
Laboratory Results
12/04/23
05:07
WBC 10.3
Hgb 9.9 L
Hct 29.7 L
Plt Count 139
Sodium 131 L
Potassium 4.7
Chloride 103
Carbon Dioxide 22
BUN 63 H
Creatinine 1.5 H
Glucose 270 H
Calcium 7.4 L
Vital Signs:
Vital Signs
Temp Pulse Resp BP Pulse Ox
98.1 F 81 22 94/62 92
12/04/23 15:06 12/04/23 16:04 12/04/23 16:04 12/04/23 16:04 12/04/23 16:04
I&O
12/03/23 12/04/23 12/05/23
06:59 06:59 06:59
Intake Total 240 / 240
Output Total 500 / 500
Balance -260 / -260
Review of Systems
-
Respiratory: Denies Cough or Trouble Breathing
Cardiac: Reports No Symptoms
Abdomen/GI: Reports No Symptoms
Physical Exam
-
General: No Apparent Distress and Comfortable
HEENT: Oxygen
Respiratory: Clear to Auscultation; Negative Wheezes
Cardiac: Regular Rhythm and S1/S2; Negative Murmur
GI: Soft, Nontender and Nondistended
Neuro: Awake, Alert, Oriented and No Motor Deficits
Psych: Calm
--- NOTE | 2023-12-04 17:19 | PTCARENOTE ---
Patient returned from IR with 14fr left chest tube with 850ml kaleigh/clear fluid in chamber. Placed chest tube to suction per ordered. Patient with no complaints. VSS. Will continue to closely monitor patient.
[2023-12-04] MEDS: ProAmatine PO (17:27)
[2023-12-04] MEDS: FLOMAX 0.400000000000000022 MG PO (17:27)
[2023-12-04] MEDS: NOVOLOG FLEXPEN 3 UNITS SC (17:33)
[2023-12-04] MEDS: NOVOLOG FLEXPEN-LOW RESISTANCE 3 UNITS SC (17:34)
[2023-12-04 17:51] LABS: Glucose - Point of Care 289 mg/dl (70-99)
[2023-12-04] MEDS: ROXICODONE 5 MG PO (19:41)
--- NOTE | 2023-12-04 20:46 | PTCARENOTE ---
Received pt from [facility]. Pt OOB in the chair. Pt is AAOx3. NSR on the monitor. On RA O2 sat 93%, lungs diminished. Left CT in place, -20 suction. BRPx1. Pt c/o pain @ chest tube site, PRN pain medication given (see MAR). Pt assisted back to bed
x1. Call bal in reach.
[2023-12-04] MEDS: MELATONIN 5 MG PO (20:54)
[2023-12-04 21:51] LABS: Glucose - Point of Care 422 mg/dl (70-99)
[2023-12-04 22:09] LABS: Glucose 388 mg/dl (70-99)
[2023-12-04] MEDS: NOVOLOG FLEXPEN 5 UNITS SC (22:33)
[2023-12-05] VITALS (12 sets, daily range): BP systolic 107–127; BP diastolic 53–71; BMI 27.2
[2023-12-05] MEDS: ZOSYN 50 IV ×5 (00:06→23:26)
[2023-12-05 00:53] LABS: Glucose - Point of Care 343 mg/dl (70-99)
[2023-12-05] MEDS: NOVOLOG FLEXPEN 4 UNITS SC (00:59)
[2023-12-05 05:42] LABS: Hematocrit 26.7 % (39.0-52.0); Hemoglobin 9.2 g/dL (13.0-18.0); Mean Corp Hgb Conc. 34.5 g/dL (33.0-37.0); Mean Corpuscular Hgb 32.1 pg (27.0-31.0); Mean Platelet Volume 10.7 fL (7.4-10.4); Platelet Count 140 10^3/uL (130-400); Red Blood Cell Count 2.87 10^6/uL (4.70-6.10); Red Cell Dist. Width 19.3 % (11.5-14.5); White Blood Cell Count 8.8 10^3/uL (4.8-10.8)
[2023-12-05 05:54] LABS: Blood Urea Nitrogen 64 mg/dl (9-20); Calcium 7.6 mg/dl (8.4-10.2); Carbon Dioxide 21 mmol/L (22-30); Chloride 105 mmol/L (98-107); Estimated Creatinine Clearance 40 ml/min; Glucose 213 mg/dl (70-99); Potassium 4.7 mmol/L (3.5-5.1); Sodium 131 mmol/L (135-145); eGFR 48.55
[2023-12-05 07:39] LABS: Glucose - Point of Care 237 mg/dl (70-99)
[2023-12-05] MEDS: ProAmatine 10 MG PO (08:19)
[2023-12-05] MEDS: MUCINEX 600 MG PO ×2 (08:19→19:33)
[2023-12-05] MEDS: ZOVIRAX 400 MG PO ×2 (08:19→19:33)
[2023-12-05] MEDS: BACTRIM DS 800 MG/160 MG 1 TABLET PO (08:19)
[2023-12-05] MEDS: VITAMIN D3 (cholecalciferol) 25 MCG PO (08:20)
[2023-12-05] MEDS: DECADRON 8 MG PO ×2 (08:20→19:33)
[2023-12-05] MEDS: ROXICODONE 5 MG PO ×3 (08:20→23:27)
[2023-12-05] MEDS: BACTROBAN 2% OINTMENT 1 APPLIC NASAL ×2 (08:20→19:33)
[2023-12-05] MEDS: NOVOLOG FLEXPEN 3 UNITS SC (08:21)
[2023-12-05] MEDS: NOVOLOG FLEXPEN-LOW RESISTANCE 3 UNITS SC (08:21)
[2023-12-05] MEDS: NON-FORMULARY ITEM 5 MG PO (08:21)
--- NOTE | 2023-12-05 09:48 | PN.DE.MGMTRT ---
Insulin Management
- -
12/05/2023: Diabetes Management Consult
73 year old male readmitted on 12/02 with significant SOB noted for large left pleural effusion s/p thoracentesis. Diabetes eval is requested on 12/04.
PMH: HTN, HFpEF, RBBB, pulmonary HTN, mild , multiple myeloma, CKD 3B, obesity, prostate cancer s/p Prostatectomy and radiation, B12 deficiency, diverticulitis, sciatica, insomnia, hepatic steatosis, hyponatremia, Pseudomonas bacteremia, renal
stones and T2DM. A1C 7.3% on 11/22, Cr 1.7-->1.5, eGFR 48.55. Pt was taking ~100 units of insulin during recent hospitalization and was transitioned to oral regimen upon discharge; Metformin 1000 mg BID and Glipizide 5mg BID. Pt states that glucose
remained elevated at home since discharge, >300 at times. Glucose on admission was 191, trended up to 422 yesterday. pt was started on AC NovoLog. Glucose has remained elevated, premeal 237 to 390.
Pt awake, A/O x3, sitting up in chair, offers no complaints, able to discuss diabetes management.
Reports he was taking Metformin 1000mg BID and Glipizide 5mg BID, both were put on hold due to ANAI
Pt remains on steroids- Dexa 8mg BID, contributing to Hyperglycemia.
Current diabetes regimen includes: NovoLog 6 units AC and moderate corrective with meals.
Will start Lantus 20 units in AM, 1st dose now. Increase NovoLog to 8 units AC and change to moderate corrective with meals.
Will follow and adjust further if needed. Plan of care discussed with pt and Nurse at bedside.
Diabetes History
- -
Type of Diabetes: 2 requiring insulin
Pre-Admission Diabetes Regimen
12/05/23
05:08
Creatinine 1.5 H
Insulin Pump Settings
IP Diabetes Regimen
12/04/23 12/04/23 12/04/23
12:20 17:34 21:37
Glucose
POC Glucose 390 H 289 H 422 H
12/04/23 12/05/23 12/05/23
21:45 00:36 05:08
Glucose 388 H 213 H
POC Glucose 343 H
12/05/23
07:27
Glucose
POC Glucose 237 H
Meal type: Breakfast
Amount consumed: 100%
Patient Education
--- NOTE | 2023-12-05 10:04 | W.PN.PUL.V3 ---
Today's Communication / Plan
-
Monitor chest tube output
Follow radiographically
Continue antibiotics
Assessment
-
73-year-old male with a history of prostate cancer and multiple myeloma refractory to treatment as well as diastolic dysfunction developed significant shortness of breath noted to have large left pleural effusion status postthoracentesis-feeling
much improved-pulmonary consulted for shortness of breath/pleural effusion/infection 12/04/2023.
Assessment
Large left pleural effusion
Status post left thoracentesis-1100 mL 12/03/2023-exudate
pH 7.5-not consistent with empyema
Gram stain positive-cultures pending
Chest tube placement 12/04/2023
Anemia-macrocytic
Hyponatremia
Chronic renal insufficiency
Hyperglycemia
Conditions present prior to admission:
Recent hospitalization for diverticulitis 09/2023
Recent hospitalization 11/21/2023--neurotoxicity related to Talvey-11/2023
Prostate cancer status post prostatectomy 2020 with bilateral pelvic lymphadenectomy and radiation-Dr. Escalona and [facility].
Multiple myeloma.
Diabetes.
B12 deficiency.
Diastolic CHF.
Hypertension.
Hyperlipidemia
Pulmonary hypertension.
Diastolic dysfunction with preserved left ventricular function
Mild aortic stenosis
Lumbar spine disease
History of diverticulitis 2015
Renal calculi
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
Cataract surgery
Plan
Respiratory status improved with fluid removal
Supplemental oxygen as needed
Incentive spirometry
Nebulizers if needed-currently not bronchospastic
Reviewed CT abdomen reviewed-significant amounts of lung windows noted-moderate sized persistent pleural effusion
Chest tube placed 12/04/2023
Monitor chest tube output--1040 mL / 24-hour
Follow radiographically to ensure complete fluid evacuation-explained to patient that occasionally chest tubes need to be upsized, reposition, additional drains placed for complete evacuation, tPA/DNase instillation
Recheck pH and cultures
Cytology from pleural fluid pending
Cultures [id number] bacilli-identification pending
Broad-spectrum antibiotics
Infectious disease following-correspondence reviewed
Continue diuresis as tolerated
Monitor renal function, electrolytes, intake/output, lower extremity edema and weight
Replace electrolytes as needed
Cardiology following-correspondence reviewed
Monitor renal function
Nephrology following-correspondence reviewed
DVT prophylaxis
Nutrition
Early mobilization
Outpatient pulmonary follow-up with Dr. Marks
Diagnostic data:
Chest x-ray 03/12/2015-NAD
Chest x-ray 10/22/2022-left lower lobe pneumonia
Chest x-ray 09/09/2023-hypoinflated, basilar atelectasis, no evidence for right-sided rib fracture
Chest x-ray 12/03/2023-status post left thoracentesis, no pneumothorax
CT abdomen and pelvis 06/30/2020-few tiny pulmonary nodules developed since 2018, 2.2 mm right lower lobe, 2.7 mm right lower lobe, 1.2 mm right lower lobe and 3 mm right lower lobe, chronic diverticulosis
CT chest 08/30/2023-numerous small well-defined pulmonary nodules mainly in the upper to mid lungs relatively sparing the lower lungs have increased in size and number when compared to PET scan June 2022, cavitation of a nodule in the apical
region of the right upper lobe, diffuse fatty infiltration
CT abdomen 09/09/2023-mild to moderate dependent atelectasis posterior right lung, several small well-defined pulmonary nodules in the right lung appears unchanged from previous CT, fatty infiltration of the liver, no abscess identified, right-sided
colonic diverticulitis
CT abdomen 12/03/2023-suspected small hepatic abscess, appearance of spleen with infarcts, tiny umbilical hernia, large left lung consolidation with air bronchograms likely representing pneumonia with moderate pleural effusion
CT chest 11/03/2023-small left pleural effusion, moderate left lower lobe consolidation
Thoracentesis 12/03/23-1100 mL punch colored pleural fluid removed
Lower extremity ultrasound 11/21/2023-no evidence for DVT bilaterally
Echocardiogram 03/29/2023-EF 60-65%, trace mitral regurgitation, mildly stenotic aortic valve
Echocardiogram 11/05/2023-EF 40-45%, mild aortic stenosis
PET scan 12/22/2020-FDG avid mixed lytic sclerotic expansile lesion lateral left sixth ribs suspicious for metastatic disease, FDG avid sclerotic focus proximal right tibia suspicious for metastatic disease, T6/7 vertebral area also suspicious as
well as mildly enlarged left axillary lymph nodes
PET scan 06/21/2022-recurrent prostate cancer and prostatectomy surgical bed, moderate number of new small subcentimeter solid nodules in the lungs suspicious for metastatic disease
VQ scan 09/05/2023-low probability for pulm embolism
Subjective Data
-
Date of Service:
Date of Service: December 05, 2023
Chief Complaint: Pulmonary Follow Up, Dyspnea Follow Up and Other (Pleural effusion)
Subjective:
He feels improved after chest tube placement, did not sleep well, requesting trazodone, no increase shortness of breath, chest pain controlled, mild pleurisy, no abdominal pain or lower extremity swelling
Review of Systems
General: Other (Per HPI)
Objective Data
Data Reviewed
Vital Signs / I&O:
Vital Signs
Temp Pulse Resp BP Pulse Ox
97.8 F 88 16 115/65 94
12/05/23 07:36 12/05/23 08:00 12/05/23 08:00 12/05/23 08:00 12/05/23 06:00
Intake and Output
12/04/23 12/05/23 12/06/23
06:59 06:59 06:59
Intake Total 240 / 240 475 / 475 240 / 240
Output Total 500 / 500 1340 / 1340
Balance -260 / -260 -865 / -865 240 / 240
SaO2: 94
Nasal Cannula flow liters per minute: 2
Physical Exam
General: Respiratory Distress (n) and Comfortable
HEENT: Normocephalic, Anicteric and Moist Mucous Membranes
Cardiovascular: Regular Rhythm
Respiratory: Wheeze (n), Crackles (Left greater than right base), Rhonchi (n), Non-Labored Respirations, Accessory Resp Muscle Use (n) and Stridor (n)
GI: Soft, Non Distended and Non Tender
Neurology: Awake, Alert and No Motor Deficits
Skin: Warm, Good Color, Cyanosis (n), Jaundice (n) and Rash (n)
Labs/Micro/Reports
Lab Data
12/05/23 05:08
12/05/23 05:08
Microbiology
12/03/23 12:02 Pleural Fluid Body Fluid Culture - Preliminary
Gram negative bacilli
12/03/23 12:02 Pleural Fluid Gram Stain - Preliminary
12/03/23 00:26 Blood/Venous Blood Culture - Preliminary
No Growth in 48 hours- Final report to follow
12/03/23 00:26 Blood/Venous Blood Culture - Preliminary
No Growth in 48 hours- Final report to follow
12/03/23 12:02 Pleural Fluid Fungal Culture - Preliminary
Culture in progress.
Positive cultures are reported as soon as detected.
Final report to follow in four to five weeks.
12/03/23 00:27 Nasal Swab Influenza Types A & B (ARMEN) - Final
Negative for Influenza A & B, NAAT
Negative results must be combined with clinical observations
and patient history.
Nucleic Acid Amplification test (NAAT)performed on the
[employer] platform.
--- NOTE | 2023-12-05 10:17 | W.PN.CARDCBS ---
Today's Communication / Plan
-
Continue current cardiac meds
Impression / Plan
-
Primary Public Address Servicer: Dr. Ginger Lal
PCP: Dr. Hunter
Impression:
-Left pleural effusion with severe pleuritic pain
-Acute kidney injury
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
-Admission to [facility], discharged 11/19/2023 after initiation of Talvey (talquetamab) therapy for refractory myeloma
-Active Multiple myeloma
-Diverticular abscess, treated with Augmentin, with hx diverticulitis 2015
-Ching-Splenic hematoma following fall 2023
-Recent left lower lobe pneumonia 10/2023
-Recent Pseudomonas bacteremia
-Concern for septic emboli of lungs by review of records from [place], not confirmed
-Pulmonary hypertension and chronic RV dysfunction/heart failure with preserved ejection fraction
-Mild aortic stenosis
-Hypertension
-Dyslipidemia on red yeast rice
-CT imaging noting coronary atherosclerosis without history of WI
-Aortic atherosclerosis without aneurysm
-Right bundle branch block
-Type 2 diabetes mellitus
-Fatty liver infiltration
-Hx prostate cancer status post prostatectomy
-Degenerative joint disease of lumbar spine
-Hyponatremia
Echocardiogram 08/30/2023: Ejection fraction 55 to 60%, D-shaped septum in systole and diastole consistent with RV pressure and volume overload, mild aortic stenosis with mean gradient of 11 mmHg aortic valve area 1.5 cm�, mild TR with PA systolic of
55 mmHg
Echo 11/05/2023: Mildly reduced left ventricular systolic function. Global hypokinesis. Abnormal (paradoxical) septal motion consistent with left bundle branch block. Flattened septum in systole consistent with RV pressure overload. Left ventricular
ejection fraction is 40-45 %. Trace mitral regurgitation. Aortic valve peak/mean gradients are 23/15 mmHg. MARYELLEN 1.2 cm2. Mild aortic stenosis. Estimated pulmonary artery pressure of 30-35 mmHg.
Right heart catheterization 09/13/2023
Hemodynamics (mmHg):
RA (m) : 13
RV (s/d,m) : 77/12, 17
PA (s/d, m) : 77/23, 48
PCWP (m) : 18
Cardiac Output : 5.2 L/min
Cardiac Index : 2.5 L/min/m-2
Systemic vascular resistance: 13.5 Wood units or 1077 [id number]-yk(-5)
Pulmonary vascular resistance: 5.8 Wood units or 461 armmv-tdk-bn(-5)
Plan:
He presents with a very large left pleural effusion significantly increased since the chest CT of November 20
Underwent L thoracentesis and currently has chest tube in place
Does not appear to be overtly volume overloaded on exam
Weaned of O2
Cr still above baseline and has fluid loss from chest tube output therefore would hold off restarting diuretics for now
Pressor weaned off
Midodrine added
Continue Ambrisentan
Sildenafil on hold until blood pressure stabilizes
Progress Note - Public Address Servicer
Subjective
Date of Service: December 05, 2023
No acute overnight events. Resting comfortably. Tells me that his breathing is comfortable thoracentesis. Does report some irritation and discomfort related to chest tube.
Objective
Labs:
12/05/23 05:08
12/05/23 05:08
Labs
Hgb 9.2 g/dL (13.0-18.0) L 12/05/23 05:08
Hct 26.7 % (39.0-52.0) L 12/05/23 05:08
Plt Count 140 10^3/uL (130-400) 12/05/23 05:08
Sodium 131 mmol/L (135-145) L 12/05/23 05:08
Potassium 4.7 mmol/L (3.5-5.1) 12/05/23 05:08
BUN 64 mg/dl (9-20) H 12/05/23 05:08
Creatinine 1.5 mg/dL (0.7-1.3) H 12/05/23 05:08
Glucose 213 mg/dl (70-99) H 12/05/23 05:08
Troponins
12/03/23 12/03/23
00:17 00:53
Troponin I Cancelled < 0.012
Vital Signs and I&O:
Vital Signs
Temp Pulse Resp BP Pulse Ox
97.8 F 88 16 115/65 94
12/05/23 07:36 12/05/23 08:00 12/05/23 08:00 12/05/23 08:00 12/05/23 10:04
Vital Signs
Temp Pulse Resp BP Pulse Ox
97.8 F 88 16 115/65 94
12/05/23 07:36 12/05/23 08:00 12/05/23 08:00 12/05/23 08:00 12/05/23 10:04
Intake & Output
12/03/23 12/04/23 12/05/23 12/06/23
06:59 06:59 06:59 06:59
Intake Total 240 / 240 475 / 475 240 / 240
Output Total 500 / 500 1340 / 1340
Balance -260 / -260 -865 / -865 240 / 240
Physical Exam
Physical Exam
Gen: NAD, AAOx3, out of bed to chair resting comfortably
HEENT: NC/AT, sclera anicteric
Neck: No JVD
CV: RRR, NL s1/s2
Lungs: CTAB, L sided chest tube with serosanguineous drainage
Abd: S/ND
Ext: No LE edema
Skin: Warm, dry
Neuro: Non-focal
--- NOTE | 2023-12-05 10:49 | W.PN.ID1 ---
Date of Service
Date of Service: December 05, 2023
Today's Communication
Continue Zosyn.
Assessment / Plan
# Left empyema
# Hypotension resolved
# Immunocompromised host: Refractory multiple myeloma, recent Talvey
- Pleural fluid Cx: GNR
-12/04 s/p chest tube placement
- Continue Zosyn pending identification of organism
- Continue prophylactic acyclovir and Bactrim MWF.
#Additional Past Medical History:
Refractory Multiple myeloma, recent new regimen Talvey
DM type 2
Hypertension
Congestive heart failure slight reduced EF
Pulmonary hypertension
Nephrolithiasis
CKD3b
Pulmonary nodules
Diverticulitis
Fatty liver
hx [place] 9 prostate cancer s/p prostatectomy/XRT (2020) with recurrence by PET
Chief Complaint
-: Pneumonia and Other (empyema)
Subjective / Review of Systems
Chest tube site sore.
Vital Signs / Physical Exam
Vital Signs
Vital Signs
Temp Pulse Resp BP Pulse Ox
97.8 F 88 16 115/65 94
12/05/23 07:36 12/05/23 08:00 12/05/23 08:00 12/05/23 08:00 12/05/23 10:04
Physical Exam
Constitutional: No Acute Distress
Pulmonary: Other (decreased BS left; chest tube in place with cloudy serous fluid)
Gastrointestinal: Soft and Non Tender
Extremities: Negative Edema
Objective Data
Lab Data
Lab Results
12/05/23 05:08
12/05/23 05:08
Estimated Creat Clear 40 ml/min 12/05/23 05:08
Lactic Acid 1.8 mmol/L (0.7-2.0) 12/03/23 00:26
Total Bilirubin 0.6 mg/dl (0.2-1.3) 12/03/23 00:53
AST 15 U/L (17-59) L 12/03/23 00:53
ALT 18 U/L (0-50) 12/03/23 00:53
Alkaline Phosphatase 69 U/L (38-126) 12/03/23 00:53
Most recent labs reviewed.
Micro Results:
12/03/23 12:02 Body Fluid Culture - Preliminary
Pleural Fluid Gram negative bacilli
Gram Stain - Preliminary
12/03/23 00:26 Blood Culture - Preliminary
Blood/Venous No Growth in 48 hours- Final report to follow
12/03/23 00:26 Blood Culture - Preliminary
Blood/Venous No Growth in 48 hours- Final report to follow
12/03/23 12:02 Fungal Smear - Pending
Pleural Fluid Fungal Culture - Preliminary
Culture in progress.
Positive cultures are reported as soon as detected.
Final report to follow in four to five weeks.
12/03/23 00:27 Influenza Types A & B (ARMEN) - Final
Nasal Swab Negative for Influenza A & B, NAAT
Negative results must be combined with clinical observations
and patient history.
Nucleic Acid Amplification test (NAAT)performed on the
[employer] platform.
12/03/23 CXR: Moderate to large left pleural effusion with associated atelectasis and/or pneumonia, progressed.
[2023-12-05 11:26] LABS: Body Fluid Glucose 242 mg/dl; Body Fluid LDH 241 U/L; Body Fluid Protein 4.9 g/dl
--- NOTE | 2023-12-05 11:34 | W.PN.NEPH.PH ---
Today's Communication / Plan
-
follow BMP
Assessment/Plan
-
Assessment
Multiple myeloma refractory to treatment
Right ventricular heart failure with preserved ejection fraction
Diabetes mellitus type 2
Acute kidney injury
Hyponatremia
Anemia
Left lower lobe pneumonia/effusion
Diarrhea
Diverticulitis
Liver abscess
Plan
follow BMP
chest tube per pulmonary
can continue bactrim from renal standpoint
abx continue
-
-
Date of Service: December 05, 2023
CC / HPI / ROS
-
Chief Complaint:
ANAI
History of Present Illness:
ANAI/Cr stable 1.[address]
BP stable
Na stable low
Review of Systems:
feeling better today
no CP
Labs
-
Labs:
WBC 8.8 10^3/uL (4.8-10.8) 12/05/23 05:08
RBC 2.87 10^6/uL (4.70-6.10) L 12/05/23 05:08
Hgb 9.2 g/dL (13.0-18.0) L 12/05/23 05:08
Hct 26.7 % (39.0-52.0) L 12/05/23 05:08
Plt Count 140 10^3/uL (130-400) 12/05/23 05:08
Sodium 131 mmol/L (135-145) L 12/05/23 05:08
Potassium 4.7 mmol/L (3.5-5.1) 12/05/23 05:08
Chloride 105 mmol/L (98-107) 12/05/23 05:08
Carbon Dioxide 21 mmol/L (22-30) L 12/05/23 05:08
BUN 64 mg/dl (9-20) H 12/05/23 05:08
Creatinine 1.5 mg/dL (0.7-1.3) H 12/05/23 05:08
eGFR 48.55 12/05/23 05:08
Glucose 213 mg/dl (70-99) H 12/05/23 05:08
Calcium 7.6 mg/dl (8.4-10.2) L 12/05/23 05:08
Phosphorus 4.4 mg/dl (2.5-4.5) 12/03/23 06:20
Kaa-W-Pkutvextlve Pept 1770 pg/ml 12/03/23 00:53
Albumin 2.6 g/dl (3.5-5.0) L 12/03/23 00:53
Physical Exam
-
Vital Signs:
Vital Signs
Temp Pulse Resp BP Pulse Ox
97.8 F 88 16 115/65 94
12/05/23 11:26 12/05/23 08:00 12/05/23 08:00 12/05/23 08:00 12/05/23 10:04
Cardiovascular:: Regular rate and rhythm
Respiratory:: Bilateral: Coarse
Lung Excursion:: Normal
Abdomen:: Nontender and Soft
Bowel Sounds:: Normal
Extremity Edema:: None: Bilateral:
[2023-12-05 11:36] LABS: Body Fluid Mononuclear 22.3 %; Body Fluid Polymorphonuclear 77.7 %; Body Fluid WBC 188 /CUMM
[2023-12-05 11:51] LABS: Glucose - Point of Care 328 mg/dl (70-99)
[2023-12-05 11:51] LABS: Body Fluid Second Tech HB
--- NOTE | 2023-12-05 11:55 | CM ---
Patient with Hx multiple myeloma on chemo with Dx Shock -suspected sepsis, Lt Pleural effusion, Intermittent lethargy with weakness, acute ambulatory dysfunction, ANAI. O2 2L. Chest tube placement. Receiving IV Zosyn, IV Decadron. PT & OT
recommend HH.
Spoke with Bridget, daughter who is an oncology pharmacist & ; daughter spoke with Dr Lewis on Sunday and would like to know oncology treatment plan (Dtr wants clarification if immunotherapy is being held or discontinued) and prognosis so
that they can make some good decisions about d/c plans, they are asking for SNF placement. /daughter has not spoken with patient yet about placement. They cannot afford to take him home with 24 hr care. SNF referrals requested to [facility],
[facility]. Discussed that referrals may be preliminary as do not know final d/c needs (eg; if pleural catheter would be needed).
Message to Dr Dorantes & Rian with family request for oncology treatment plan and prognosis. Also would be helpful to know if patient will need pleural catheter at d/c.
Plan SNF referrals.
[2023-12-05] MEDS: LANTUS 0.200000000000000011 UNITS SC (12:04)
[2023-12-05] MEDS: NOVOLOG FLEXPEN 5 UNITS SC (12:04)
[2023-12-05] MEDS: NOVOLOG FLEXPEN-MODERATE RESISTANCE 7 UNITS SC (12:05)
[2023-12-05] MEDS: NOVOLOG FLEXPEN 8 UNITS SC ×2 (12:05→16:12)
--- NOTE | 2023-12-05 13:59 | W.PN.HOSP.TC ---
Today's Communication/Plan
-
cxr in am
repeat test on pleural fluid
continue abx per ID
Assessment / Plan
Assessment / Plan
1. Septic shock - resolved
-Required small dose of Levophed support for first 24hr
-maintain on PRN midodrine at this point for SBP < 100
2. Left empyema from Pseudomonas
-Patient was found to having effusion on chest x-ray
-Lower left lung sections captured on CT abdomen pelvis reviewed. no large loculation.
-on 12/02 S/p drainage of 1.1 L punch colored pleural fluid on 12/02 TWBC 1007 PMN 76% LDH 323. fluid culture growing pansensitive pseudomonas.
-Post Thora x-ray still showing residual effusion and got CT tube placement on 12/03 and drained 1040 fluid overnight. repeat labs ordered, was not collected in IR dept yesterday , Asked RN to send samples to labs,.
-Repeat CXR in 2 views
-ID on board and currently patient on Zosyn for rx
3. ANAI
-Creatinine elevated 1.7 at admission. Baseline of 1.1
-Avoid any nephrotoxic medication
-Lasix on hold.
-Nephrology is involved in care for further evaluation
4. Multiple myeloma
-This has remained somewhat refractory to treatments.
-Currently on dexamethasone/talvey
-Hbg 9.9 and plt 140k and continue monitoring.
-Continue prophylactic acyclovir and Bactrim mowefr
-Discussed with client support consultant oncology who talked to Dr Lewis, patient will need rehab before can be considered for any further therapy.
5. Type 2 diabetes mellitus
-Remains significantly uncontrolled
-started on novolog 5U ac and ISS
-last a1c of 7.3
-diabetic PREDICTIVE MAINTENANCE SPECIALIST consulted
6. Pulm HTN
- continue ambrisentan, hold sildenafil due top hypotension
Hyponatremia
Prostate cancer status post prostatectomy 2021 with bilateral pelvic lymphadenectomy and radiation-Dr. Escalona and [facility].
Chronic Diastolic CHF
Essential Hypertension
Hyperlipidemia
Mild aortic stenosis
History of diverticulitis
History of nephrolithiasis
Cataract surgery
Full code
Care plan discussed with pulmonology/ID
Total time spent : 52 mins
Anticipated Discharge: > 48 hours
Subjective/Interval History
-
Date of Service: December 05, 2023
no chest pain/shortness breath
sleep disturbance and requested trazodone to be resumed
Objective Data
-
Labs:
Laboratory Results
12/05/23
05:08
WBC 8.8
Hgb 9.2 L
Hct 26.7 L
Plt Count 140
Sodium 131 L
Potassium 4.7
Chloride 105
Carbon Dioxide 21 L
BUN 64 H
Creatinine 1.5 H
Glucose 213 H
Calcium 7.6 L
Vital Signs:
Vital Signs
Temp Pulse Resp BP Pulse Ox
97.8 F 88 16 115/65 94
12/05/23 11:26 12/05/23 08:00 12/05/23 08:00 12/05/23 08:00 12/05/23 10:04
I&O
12/04/23 12/05/23 12/06/23
06:59 06:59 06:59
Intake Total 240 / 240 475 / 475 240 / 240
Output Total 500 / 500 1340 / 1340
Balance -260 / -260 -865 / -865 240 / 240
Review of Systems
-
Respiratory: Reports No Symptoms
Cardiac: Reports No Symptoms
Abdomen/GI: Reports No Symptoms
Physical Exam
-
General: No Apparent Distress and Comfortable
HEENT: Oxygen
Respiratory: Clear to Auscultation; Negative Wheezes
Cardiac: Regular Rhythm and S1/S2; Negative Murmur
GI: Soft, Nontender and Nondistended
Neuro: Awake, Alert, Oriented and No Motor Deficits
Psych: Calm
[2023-12-05] MEDS: ProAmatine PO ×2 (14:19→17:32)
[2023-12-05 14:26] LABS: Urine Sodium 37 mmol/L (30-90)
[2023-12-05 15:07] LABS: Osmolality Urine 491 mOsm/kg (300-900)
[2023-12-05] MEDS: NOVOLOG FLEXPEN-MODERATE RESISTANCE 5 UNITS SC (16:12)
[2023-12-05] MEDS: MIRALAX 17 GRAMS PO (16:12)
[2023-12-05 16:22] LABS: Glucose - Point of Care 281 mg/dl (70-99)
[2023-12-05] MEDS: FLOMAX 0.400000000000000022 MG PO (17:32)
--- NOTE | 2023-12-05 18:36 | PTCARENOTE ---
OOB all day, ambulates to the bathroom occasionally. Left chest tube dressing CDI, pleural fluid specimen sent as ordered. Chest tube collection cannister exchanged for abnormal amts in sections. 50ml output for this shift. Remains on RAIR,
93%, SR 1st degree avb, bbb on tele. BP 100-100s/50-60s. Took Gita x2 this shift - 2/10 left chest tube site pain. States that the gita is the only med that helps.
[2023-12-05] MEDS: HEPARIN 5000 UNITS SC (19:33)
[2023-12-05] MEDS: DESYREL 50 MG PO (20:49)
[2023-12-05 22:32] LABS: Glucose - Point of Care 240 mg/dl (70-99)
[2023-12-06] VITALS (15 sets, daily range): BP systolic 101–135; BP diastolic 48–79; PULSE 78–105; O2SAT 95–96; BMI 27.7
[2023-12-06] MEDS: ZOSYN 50 IV (05:24)
--- NOTE | 2023-12-06 05:27 | PTCARENOTE ---
`18 ml out of chest tube entire shift- remains on room air. no sob or distress
[2023-12-06 05:51] LABS: Hematocrit 25.9 % (39.0-52.0); Hemoglobin 8.5 g/dL (13.0-18.0); Mean Corp Hgb Conc. 32.8 g/dL (33.0-37.0); Mean Corpuscular Hgb 31.8 pg (27.0-31.0); Mean Platelet Volume 10.3 fL (7.4-10.4); Platelet Count 117 10^3/uL (130-400); Red Blood Cell Count 2.67 10^6/uL (4.70-6.10); Red Cell Dist. Width 18.9 % (11.5-14.5); White Blood Cell Count 5.3 10^3/uL (4.8-10.8)
[2023-12-06 06:14] LABS: Blood Urea Nitrogen 56 mg/dl (9-20); Calcium 7.6 mg/dl (8.4-10.2); Carbon Dioxide 22 mmol/L (22-30); Chloride 104 mmol/L (98-107); Estimated Creatinine Clearance 47 ml/min; Glucose 226 mg/dl (70-99); Sodium 131 mmol/L (135-145); eGFR 57.65
[2023-12-06] MEDS: NOVOLOG FLEXPEN-MODERATE RESISTANCE 5 UNITS SC (07:20)
[2023-12-06] MEDS: NOVOLOG FLEXPEN 8 UNITS SC (07:20)
[2023-12-06] MEDS: LANTUS 0.200000000000000011 UNITS SC ×2 (07:21→21:27)
[2023-12-06] MEDS: MUCINEX 600 MG PO ×2 (07:22→19:14)
[2023-12-06] MEDS: VITAMIN D3 (cholecalciferol) 25 MCG PO (07:22)
[2023-12-06] MEDS: DECADRON 8 MG PO ×2 (07:22→19:14)
[2023-12-06] MEDS: ZOVIRAX 400 MG PO ×2 (07:22→19:14)
[2023-12-06] MEDS: HEPARIN 5000 UNITS SC ×2 (07:23→19:14)
[2023-12-06] MEDS: ProAmatine PO ×3 (07:23→17:14)
[2023-12-06] MEDS: NON-FORMULARY ITEM 5 MG PO (07:24)
[2023-12-06] MEDS: BACTROBAN 2% OINTMENT 1 APPLIC NASAL ×2 (07:24→19:12)
[2023-12-06 07:36] LABS: Glucose - Point of Care 259 mg/dl (70-99)
--- NOTE | 2023-12-06 08:38 | PN.DE.INSRRT ---
Insulin Recommendation
- -
12/06/2023: Diabetes Management F/U:
73 year old male readmitted on 12/02 with significant SOB noted for large left pleural effusion s/p thoracentesis. Diabetes eval is requested on 12/04.
PMH: HTN, HFpEF, RBBB, pulmonary HTN, mild , multiple myeloma, CKD 3B, obesity, prostate cancer s/p Prostatectomy and radiation, B12 deficiency, diverticulitis, sciatica, insomnia, hepatic steatosis, hyponatremia, Pseudomonas bacteremia, renal
stones and T2DM. A1C 7.3% on 11/22, Cr 1.7-->1.5, eGFR 48.55. Pt was taking ~100 units of insulin during recent hospitalization and was transitioned to oral regimen upon discharge; Metformin 1000 mg BID and Glipizide 5mg BID. Pt states that glucose
remained elevated at home since discharge, >300 at times. Glucose on admission was 191, trended up to 422 yesterday. pt was started on AC NovoLog. Glucose has remained elevated, premeal 237 to 390.
Pt awake, A/O x3, sitting up in chair, offers no complaints, able to discuss diabetes management.
Pt remains on steroids- Dexa 8mg BID, contributing to Hyperglycemia. Premeal range 237 to 328, requiring 5 units of additional corrective
Will increase NovoLog to 13 units AC, cont moderate corrective with meals.
FBG 259 this AM. Will change Lantus 20 units to BID.
Will follow and adjust further if needed. Plan of care discussed with pt and Nurse at bedside.
Diabetes History
- -
Type of Diabetes: 2 requiring insulin
Pre-Admission Diabetes Regimen
12/06/23
05:23
Creatinine 1.3
Insulin Pump Settings
IP Diabetes Regimen
12/05/23 12/05/23 12/05/23
11:40 16:11 22:19
Glucose
POC Glucose 328 H 281 H 240 H
12/06/23 12/06/23
05:23 07:20
Glucose 226 H
POC Glucose 259 H
Meal type: Lunch
Meal type: Breakfast
Amount consumed: 100%
Amount consumed: 100%
Patient Education
--- NOTE | 2023-12-06 09:05 | W.PN.CARDCBS ---
Today's Communication / Plan
-
Continue chest tube management.
Creatinine is improved at 1.3. Likely restart Lasix 80 mg daily in AM.
Continue Letairis and hopefully restart sildenafil over next 24 hours as well.
Continue antibiotics and steroids.
Hemoglobin back down to 8.5.
Impression / Plan
-
Primary Gymnastics Coach Or Instructor: Dr. Ginger Lal
PCP: Dr. Hunter
Impression:
-Left pleural effusion with severe pleuritic pain
-Acute kidney injury
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
-Admission to [facility], discharged 11/19/2023 after initiation of Talvey (talquetamab) therapy for refractory myeloma
-Active Multiple myeloma
-Diverticular abscess, treated with Augmentin, with hx diverticulitis 2015
-Ching-Splenic hematoma following fall 2023
-Recent left lower lobe pneumonia 10/2023
-Recent Pseudomonas bacteremia
-Concern for septic emboli of lungs by review of records from [place], not confirmed
-Pulmonary hypertension and chronic RV dysfunction/heart failure with preserved ejection fraction
-Mild aortic stenosis
-Hypertension
-Dyslipidemia on red yeast rice
-CT imaging noting coronary atherosclerosis without history of SD
-Aortic atherosclerosis without aneurysm
-Right bundle branch block
-Type 2 diabetes mellitus
-Fatty liver infiltration
-Hx prostate cancer status post prostatectomy
-Degenerative joint disease of lumbar spine
-Hyponatremia
Echocardiogram 08/30/2023: Ejection fraction 55 to 60%, D-shaped septum in systole and diastole consistent with RV pressure and volume overload, mild aortic stenosis with mean gradient of 11 mmHg aortic valve area 1.5 cm�, mild TR with PA systolic of
55 mmHg
Echo 11/05/2023: Mildly reduced left ventricular systolic function. Global hypokinesis. Abnormal (paradoxical) septal motion consistent with left bundle branch block. Flattened septum in systole consistent with RV pressure overload. Left ventricular
ejection fraction is 40-45 %. Trace mitral regurgitation. Aortic valve peak/mean gradients are 23/15 mmHg. MARYELLEN 1.2 cm2. Mild aortic stenosis. Estimated pulmonary artery pressure of 30-35 mmHg.
Right heart catheterization 09/13/2023
Hemodynamics (mmHg):
RA (m) : 13
RV (s/d,m) : 77/12, 17
PA (s/d, m) : 77/23, 48
PCWP (m) : 18
Cardiac Output : 5.2 L/min
Cardiac Index : 2.5 L/min/m-2
Systemic vascular resistance: 13.5 Wood units or 1077 [id number]-ht(-5)
Pulmonary vascular resistance: 5.8 Wood units or 461 jhajk-gpl-rf(-5)
Plan:
He presents with a very large left pleural effusion significantly increased since the chest CT of November 20
Underwent L thoracentesis and currently has chest tube in place
Volume status overall stable. Creat down to 1.3, Would likely restart lasix 80mg po daily in AM
Weaned of O2
Pressor weaned off
cont Midodrine added
Continue Ambrisentan
likely restart Sildenafil over next 24 hours
Progress Note - Gymnastics Coach Or Instructor
Subjective
Date of Service: December 06, 2023
breathing is improved with chest tube. no chest pains
Objective
Labs:
12/06/23 05:23
12/06/23 05:23
Labs
Hgb 8.5 g/dL (13.0-18.0) L 12/06/23 05:23
Hct 25.9 % (39.0-52.0) L 12/06/23 05:23
Plt Count 117 10^3/uL (130-400) L 12/06/23 05:23
Sodium 131 mmol/L (135-145) L 12/06/23 05:23
Potassium 5.0 mmol/L (3.5-5.1) 12/06/23 05:23
BUN 56 mg/dl (9-20) H 12/06/23 05:23
Creatinine 1.3 mg/dL (0.7-1.3) 12/06/23 05:23
Glucose 226 mg/dl (70-99) H 12/06/23 05:23
Vital Signs and I&O:
Vital Signs
Temp Pulse Resp BP Pulse Ox
96.9 F L 85 19 110/69 92
12/06/23 03:53 12/06/23 08:00 12/06/23 08:00 12/06/23 06:00 12/06/23 06:00
Vital Signs
Temp Pulse Resp BP Pulse Ox
96.9 F L 85 19 110/69 92
12/06/23 03:53 12/06/23 08:00 12/06/23 08:00 12/06/23 06:00 12/06/23 06:00
Intake & Output
12/04/23 12/05/23 12/06/23 12/07/23
06:59 06:59 06:59 06:59
Intake Total 240 / 240 475 / 475 1740 / 1740
Output Total 500 / 500 1340 / 1340 518 / 518
Balance -260 / -260 -865 / -865 1222 / 1222
Physical Exam
Physical Exam
GEN: No distress, awake, Ox3
HEENT: supple, anicteric, mmm
LUNGS: + chest tube, scatt rhonchi
CV: Reg, S1/S2, 1/6 syst LSB, no gallop
ABD: soft, BS+, NT/ND
EXT: No edema
NEURO: Gross non-focal
SKIN: No rash
--- NOTE | 2023-12-06 09:19 | W.PN.NEPH.PH ---
Today's Communication / Plan
-
follow BMP
Assessment/Plan
-
Assessment
Multiple myeloma refractory to treatment
Right ventricular heart failure with preserved ejection fraction
Diabetes mellitus type 2
Acute kidney injury
Hyponatremia
Anemia
Left lower lobe pneumonia/effusion
Diarrhea
Diverticulitis
Liver abscess
Plan
follow BMP
chest tube per pulmonary
can continue bactrim from renal standpoint
abx continue
lasix to be restarted by primary team eventually
will sign off, call with questions
-
-
Date of Service: December 06, 2023
CC / HPI / ROS
-
Chief Complaint:
ANAI
History of Present Illness:
ANAI/Cr down to 1.[address]
BP stable
Na stable low 131
Review of Systems:
feeling better today
no CP
Labs
-
Labs:
WBC 5.3 10^3/uL (4.8-10.8) 12/06/23 05:23
RBC 2.67 10^6/uL (4.70-6.10) L 12/06/23 05:23
Hgb 8.5 g/dL (13.0-18.0) L 12/06/23 05:23
Hct 25.9 % (39.0-52.0) L 12/06/23 05:23
Plt Count 117 10^3/uL (130-400) L 12/06/23 05:23
Sodium 131 mmol/L (135-145) L 12/06/23 05:23
Potassium 5.0 mmol/L (3.5-5.1) 12/06/23 05:23
Chloride 104 mmol/L (98-107) 12/06/23 05:23
Carbon Dioxide 22 mmol/L (22-30) 12/06/23 05:23
BUN 56 mg/dl (9-20) H 12/06/23 05:23
Creatinine 1.3 mg/dL (0.7-1.3) 12/06/23 05:23
eGFR 57.65 12/06/23 05:23
Glucose 226 mg/dl (70-99) H 12/06/23 05:23
Calcium 7.6 mg/dl (8.4-10.2) L 12/06/23 05:23
Phosphorus 4.4 mg/dl (2.5-4.5) 12/03/23 06:20
Ucm-V-Yfotfsnnbaq Pept 1770 pg/ml 12/03/23 00:53
Albumin 2.6 g/dl (3.5-5.0) L 12/03/23 00:53
Physical Exam
-
Vital Signs:
Vital Signs
Temp Pulse Resp BP Pulse Ox
97.4 F 85 19 110/69 92
12/06/23 08:05 12/06/23 08:00 12/06/23 08:00 12/06/23 06:00 12/06/23 06:00
Cardiovascular:: Regular rate and rhythm
Respiratory:: Bilateral: Coarse
Lung Excursion:: Normal
Abdomen:: Nontender and Soft
Bowel Sounds:: Normal
Extremity Edema:: None: Bilateral:
--- NOTE | 2023-12-06 09:50 | W.PN.ID1 ---
Date of Service
Date of Service: December 06, 2023
Today's Communication
Recommend cefepime 2g IV q12h through 12/27/23.
Home infusion sheet submitted to manager rn case.
Assessment / Plan
# Left empyema with Pseudomonas
# Recent hx Pseudomonas bacteremia (11/03/23) treated
# Prolonged QTc
# Immunocompromised host: Refractory multiple myeloma, recent Talvey
- Pleural fluid Cx: Pseudomonas (pansensitive)
-12/04 s/p chest tube placement, possible dc chest tube today, per pulm
- Underlying prolonged QTc precludes use of quinolones.
- Change Zosyn to cefepime 2g IV q12h through 12/27/23.
- Ordered midline.
-Home infusion sheet submitted to manager rn case.
- Continue prophylactic acyclovir and Bactrim MWF.
Plan discussed with his pharmacist daughter, Bridget.
#Additional Past Medical History:
Refractory Multiple myeloma, recent new regimen Talvey
DM type 2
Hypertension
Congestive heart failure slight reduced EF
Pulmonary hypertension
Nephrolithiasis
CKD3b
Pulmonary nodules
Diverticulitis
Fatty liver
hx Patt 9 prostate cancer s/p prostatectomy/XRT (2020) with recurrence by PET
Chief Complaint
-: Pneumonia and Other (empyema)
Subjective / Review of Systems
Feels better. Wants to go home soon.
Vital Signs / Physical Exam
Vital Signs
Vital Signs
Temp Pulse Resp BP Pulse Ox
97.4 F 85 19 110/69 92
12/06/23 08:05 12/06/23 08:00 12/06/23 08:00 12/06/23 06:00 12/06/23 06:00
Physical Exam
Constitutional: No Acute Distress
Pulmonary: Other (Decreased BS left base; chest tube in place.)
Gastrointestinal: Soft, Non Tender and Non Distended
Extremities: Negative Edema
Neurological: AO x 3
Objective Data
Lab Data
Lab Results
12/06/23 05:23
12/06/23 05:23
Estimated Creat Clear 47 ml/min 12/06/23 05:23
Lactic Acid 1.8 mmol/L (0.7-2.0) 12/03/23 00:26
Total Bilirubin 0.6 mg/dl (0.2-1.3) 12/03/23 00:53
AST 15 U/L (17-59) L 12/03/23 00:53
ALT 18 U/L (0-50) 12/03/23 00:53
Alkaline Phosphatase 69 U/L (38-126) 12/03/23 00:53
Most recent labs reviewed.
Micro Results:
12/03/23 12:02 Body Fluid Culture - Final
Pleural Fluid Pseudomonas aeruginosa
Pseudomonas aeruginosa#2
Gram Stain - Final
12/03/23 00:26 Blood Culture - Preliminary
Blood/Venous No Growth in 72 hours- Final report to follow
12/03/23 00:26 Blood Culture - Preliminary
Blood/Venous No Growth in 72 hours- Final report to follow
12/05/23 10:38 Fungal Smear - Final
Pleural Fluid No yeast or fungal elements seen.
Fungal Culture - Preliminary
Culture in progress.
Positive cultures are reported as soon as detected.
Final report to follow in four to five weeks.
12/03/23 12:02 Fungal Smear - Final
Pleural Fluid No yeast or fungal elements seen.
Fungal Culture - Preliminary
Culture in progress.
Positive cultures are reported as soon as detected.
Final report to follow in four to five weeks.
12/05/23 10:38 Body Fluid Culture - Pending
Pleural Fluid Gram Stain - Preliminary
12/05/23 10:38 Acid Fast Bacilli Smear - Pending
Pleural Fluid Acid Fast Bacilli Culture - Pending
12/03/23 00:27 Influenza Types A & B (ARMEN) - Final
Nasal Swab Negative for Influenza A & B, NAAT
Negative results must be combined with clinical observations
and patient history.
Nucleic Acid Amplification test (NAAT)performed on the
[employer] platform.
12/03/23 CXR: Moderate to large left pleural effusion with associated atelectasis and/or pneumonia, progressed.
Care Review
Plan reviewed with: Physician (Dr. Harjinder Dorantes)
--- NOTE | 2023-12-06 10:06 | W.PN.PUL.V3 ---
Today's Communication / Plan
-
Chest tube drainage decreasing
Chest x-ray reviewed
Check CT chest to ensure complete pleural fluid evacuation
Antibiotics to cover Pseudomonas-infectious disease following
Assessment
-
73-year-old male with a history of prostate cancer and multiple myeloma refractory to treatment as well as diastolic dysfunction developed significant shortness of breath noted to have large left pleural effusion status postthoracentesis-feeling
much improved-pulmonary consulted for shortness of breath/pleural effusion/infection 12/04/2023.
Assessment
Large left pleural effusion
Status post left thoracentesis-1100 mL 12/03/2023-exudate
pH 7.5-not consistent with empyema
Gram stain positive-cultures pending
Chest tube placement 12/04/2023
Anemia-macrocytic
Hyponatremia
Chronic renal insufficiency
Hyperglycemia
Conditions present prior to admission:
Recent hospitalization for diverticulitis 09/2023
Recent hospitalization 11/21/2023--neurotoxicity related to Talvey-11/2023
Prostate cancer status post prostatectomy 2020 with bilateral pelvic lymphadenectomy and radiation-Dr. Escalona and [facility].
Multiple myeloma.
Diabetes.
B12 deficiency.
Diastolic CHF.
Hypertension.
Hyperlipidemia
Pulmonary hypertension.
Diastolic dysfunction with preserved left ventricular function
Mild aortic stenosis
Lumbar spine disease
History of diverticulitis 2015
Renal calculi
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
Cataract surgery
Plan
Respiratory status improved with fluid removal
Supplemental oxygen as needed
Incentive spirometry
Nebulizers if needed-currently not bronchospastic
Reviewed CT abdomen reviewed-significant amounts of lung windows noted-moderate sized persistent pleural effusion
Chest tube placed 12/04/2023
Monitor chest tube output--1040 mL / 24-hour-now diminished significantly
Chest x-ray 12/06/2023 with haziness at the left base-? Still some loculated pleural fluid
Check CT chest to ensure complete fluid evacuation-explained to patient that occasionally chest tubes need to be upsized, reposition, additional drains placed for complete evacuation, tPA/DNase instillation
Recheck pH and cultures
Cytology from pleural fluid pending
Cultures hqbxrmhl-zpcq-peftrgam bacilli-Pseudomonas
Broad-spectrum antibiotics-Zosyn continues
Infectious disease following-correspondence reviewed
Attempts at diuresis as tolerated
Monitor renal function, electrolytes, intake/output, lower extremity edema and weight
Replace electrolytes as needed
Cardiology following-correspondence reviewed
Sildenafil reinitiation in the next 24-48 hours
Monitor renal function-improving
Nephrology following-correspondence reviewed
Resume diuretics
Significant insomnia-trazodone 50 mg restarted
DVT prophylaxis
Nutrition
Early mobilization
Reviewed with nursing as well as Dr. Dorantes
Outpatient pulmonary follow-up with Dr. Marks
Diagnostic data:
Chest x-ray 03/12/2015-NAD
Chest x-ray 10/22/2022-left lower lobe pneumonia
Chest x-ray 09/09/2023-hypoinflated, basilar atelectasis, no evidence for right-sided rib fracture
Chest x-ray 12/03/2023-status post left thoracentesis, no pneumothorax
CT abdomen and pelvis 06/30/2020-few tiny pulmonary nodules developed since 2017, 2.2 mm right lower lobe, 2.7 mm right lower lobe, 1.2 mm right lower lobe and 3 mm right lower lobe, chronic diverticulosis
CT chest 08/30/2023-numerous small well-defined pulmonary nodules mainly in the upper to mid lungs relatively sparing the lower lungs have increased in size and number when compared to PET scan June 2022, cavitation of a nodule in the apical
region of the right upper lobe, diffuse fatty infiltration
CT abdomen 09/09/2023-mild to moderate dependent atelectasis posterior right lung, several small well-defined pulmonary nodules in the right lung appears unchanged from previous CT, fatty infiltration of the liver, no abscess identified, right-sided
colonic diverticulitis
CT abdomen 12/03/2023-suspected small hepatic abscess, appearance of spleen with infarcts, tiny umbilical hernia, large left lung consolidation with air bronchograms likely representing pneumonia with moderate pleural effusion
CT chest 11/03/2023-small left pleural effusion, moderate left lower lobe consolidation
Thoracentesis 12/03/23-1100 mL punch colored pleural fluid removed
Lower extremity ultrasound 11/21/2023-no evidence for DVT bilaterally
Echocardiogram 03/29/2023-EF 60-65%, trace mitral regurgitation, mildly stenotic aortic valve
Echocardiogram 11/05/2023-EF 40-45%, mild aortic stenosis
PET scan 12/22/2020-FDG avid mixed lytic sclerotic expansile lesion lateral left sixth ribs suspicious for metastatic disease, FDG avid sclerotic focus proximal right tibia suspicious for metastatic disease, T6/7 vertebral area also suspicious as
well as mildly enlarged left axillary lymph nodes
PET scan 06/21/2022-recurrent prostate cancer and prostatectomy surgical bed, moderate number of new small subcentimeter solid nodules in the lungs suspicious for metastatic disease
VQ scan 09/05/2023-low probability for pulm embolism
Subjective Data
-
Date of Service:
Date of Service: December 06, 2023
Chief Complaint: Pulmonary Follow Up, Dyspnea Follow Up and Other (Pleural effusion)
Subjective:
Feels much better with pleural fluid evacuation, no complaints of increasing shortness of breath, pleurisy managed, no abdominal pain
Review of Systems
General: Other (Per HPI)
Objective Data
Data Reviewed
Vital Signs / I&O:
Vital Signs
Temp Pulse Resp BP Pulse Ox
97.4 F 85 19 110/69 92
12/06/23 08:05 12/06/23 08:00 12/06/23 08:00 12/06/23 06:00 12/06/23 06:00
Intake and Output
12/05/23 12/06/23 12/07/23
06:59 06:59 06:59
Intake Total 475 / 475 1740 / 1740
Output Total 1340 / 1340 518 / 518
Balance -865 / -865 1222 / 1222
SaO2: 92
Nasal Cannula flow liters per minute: 2
Physical Exam
General: Respiratory Distress (n) and Comfortable
HEENT: Normocephalic, Anicteric and Moist Mucous Membranes
Cardiovascular: Regular Rhythm
Respiratory: Wheeze (n), Crackles (Left greater than right base), Rhonchi (n), Non-Labored Respirations, Accessory Resp Muscle Use (n) and Stridor (n)
GI: Soft, Non Distended and Non Tender
Neurology: Awake, Alert and No Motor Deficits
Skin: Warm, Good Color, Cyanosis (n), Jaundice (n) and Rash (n)
Labs/Micro/Reports
Lab Data
12/06/23 05:23
12/06/23 05:23
Microbiology
12/03/23 12:02 Pleural Fluid Body Fluid Culture - Final
Pseudomonas aeruginosa
Pseudomonas aeruginosa#2
12/03/23 12:02 Pleural Fluid Gram Stain - Final
12/03/23 00:26 Blood/Venous Blood Culture - Preliminary
No Growth in 72 hours- Final report to follow
12/03/23 00:26 Blood/Venous Blood Culture - Preliminary
No Growth in 72 hours- Final report to follow
12/05/23 10:38 Pleural Fluid Fungal Smear - Final
No yeast or fungal elements seen.
12/05/23 10:38 Pleural Fluid Fungal Culture - Preliminary
Culture in progress.
Positive cultures are reported as soon as detected.
Final report to follow in four to five weeks.
12/03/23 12:02 Pleural Fluid Fungal Smear - Final
No yeast or fungal elements seen.
12/03/23 12:02 Pleural Fluid Fungal Culture - Preliminary
Culture in progress.
Positive cultures are reported as soon as detected.
Final report to follow in four to five weeks.
12/05/23 10:38 Pleural Fluid Gram Stain - Preliminary
[2023-12-06] MEDS: STERILE WATER FOR INJECTION 10 ML IV ×2 (10:43→20:38)
[2023-12-06] MEDS: MAXIPIME 2000 MG IV ×2 (10:43→20:38)
[2023-12-06 11:41] LABS: Glucose - Point of Care 304 mg/dl (70-99)
--- NOTE | 2023-12-06 12:10 | CM ---
Addendum entered by Laquita Reyez RN 12/06/23 16:04:
Spoke with [facility]; they are checking benefits for home infusion. They cannot provide nurse for home infusion so [facility] needs to come off service and will need [facility] for Nurse teaching visits at home. She gave heads up to Ene at [facility]
re; referral. She is aware that daughter agrees to be available for teaching visit in hospital.
Spoke with Americo Luque; they are able to accept the referral and will need CM to provide update of date of d/c. Informed her that daughter is contact.
Met with patient and ; relayed referrals to [facility], [facility] & [facility]. asking questions that convey she is still having difficulty grasping the d/c plans.
Plan home with [facility] for home IV Infusion, with [facility] for SN/PT/OT, with [facility].
Addendum entered by Laquita Reyez RN 12/06/23 14:53:
Spoke with Bridget, daughter; family has decided patient will return home. The patient and her mother will primarily doing the home infusion- daughter will be the backup and will be the contact for [facility]. She is aware that a referral was
made to [facility]. Confirmed that CM spoke with Lorelei from [facility] and provided her with patient's clinical info. Informed her that anticipate possible home O2 assessment once d/c date is known. Informed her will meet with her father &
mother today.
Spoke with L[facility]lei [facility] (ph [phone], fax [phone]); informed her d/c date is unknown at this time, maybe 1-2 days. Agreed to send clinical info---> faxed.
Phone call to Jessica [facility]ined[facility]; referral sent including script and midline info---> sent via [employer].
Message from Dr Vargas, Pulmonary; Ct reviewed. Some small amount prob free flowing fluid left. Will ask IR to look at. Maybe reposition tube to completely drain.
Plan home with [facility] for home IV Infusion, with [facility] for PT/OT, with [facility].
Original Note:
Patient with Hx multiple myeloma on chemo with Dx Shock -suspected sepsis, Lt Pleural effusion, Intermittent lethargy with weakness, acute ambulatory dysfunction, ANAI. O2 2L. Chest tube. Receiving IV cefepime, IV Decadron. Midline. PT & OT
12/03 recommend HH.
Script received from Dr nEglish for IV cefapime Q12 until 12/26.
Spoke with Bridget, daughter who is an oncology pharmacist; she is aware that her father wants to return home at discharge. Her mother/patient's may agree to d/c home as pleural catheter will not needed, however will probably prefer patient
go to SNF for IV Abx & rehab and then return home. A stair glide is being installed in the home tomorrow. The family met with a senior financial consultant and discovered patient has LTC insurance which would cover 7 hrs/day 7 days/week caregiver- caregiver
not yet arranged.
Message to Dr Vargas, Dr Dorantes who confirm patient will probably have chest tube removed today or tomorrow, and that pleural catheter such as Asept will not be needed for d/c.
SNF referrals placed.
Plan follow up with daughter re; SNF for IV Abx & rehab vs home with home infusion and VN for rehab.
[2023-12-06] MEDS: NOVOLOG FLEXPEN 13 UNITS SC ×2 (12:39→16:49)
[2023-12-06] MEDS: NOVOLOG FLEXPEN-MODERATE RESISTANCE 7 UNITS SC (12:40)
[2023-12-06] MEDS: SENOKOT-S 1 TABLET PO (12:42)
--- NOTE | 2023-12-06 15:26 | W.PN.HOSP.TC ---
Today's Communication/Plan
-
see note
Assessment / Plan
Assessment / Plan
1. Septic shock - resolved
-Required small dose of Levophed support for first 24hr
-maintain on PRN midodrine at this point for SBP < 100
2. Left empyema from Pseudomonas
-Patient was found to having effusion on chest x-ray
-Lower left lung sections captured on CT abdomen pelvis reviewed. no large loculation.
-on 12/02 S/p drainage of 1.1 L punch colored pleural fluid on 12/02 TWBC 1007 PMN 76% LDH 323. fluid culture growing pansensitive pseudomonas.
-Post Thora x-ray still showing residual effusion and got CT tube placement on 12/03 and drained 1040 fluid overnight. repeat labs ordered, was not collected in IR dept yesterday , Asked RN to send samples to labs,.
-Repeat CXR in showing improvement in left empyema, some residual effusion left.
-Follow-up repeat CT chest ordered today and tube may be repositioned.
-Patient will require to go on IV cefepime. Unsafe to be on oral Levaquin with elevated QTc.
3. ANAI -improving
-Creatinine elevated 1.7 at admission. Baseline of 1.1
-Avoid any nephrotoxic medication
-Lasix on hold.
-Nephrology is involved in care for further evaluation
4. Multiple myeloma
-This has remained somewhat refractory to treatments.
-Currently on dexamethasone/talvey
-Hbg 9.9 and plt 140k and continue monitoring.
-Continue prophylactic acyclovir and Bactrim mowefr
-Discussed with enterprise application administrator oncology who talked to Dr Lewis, patient will need rehab before can be considered for any further therapy.
5. Type 2 diabetes mellitus
-Remains significantly uncontrolled
-started on novolog 5U ac and ISS
-last a1c of 7.3
-diabetic RESTAURANT KITCHEN MANAGER consulted
6. Pulm HTN
- continue ambrisentan, hold sildenafil due top hypotension
Hyponatremia
Prostate cancer status post prostatectomy 2020 with bilateral pelvic lymphadenectomy and radiation-Dr. Escalona and [facility].
Chronic Diastolic CHF
Essential Hypertension
Hyperlipidemia
Mild aortic stenosis
History of diverticulitis
History of nephrolithiasis
Cataract surgery
Full code
Care plan discussed with pulmonology/ID
Anticipated Discharge: Within 24 hours
Subjective/Interval History
-
Date of Service: December 06, 2023
Resting comfortably in chair
Denies of having any shortness of breath
Afebrile overnight
Objective Data
-
Labs:
Laboratory Results
12/06/23
05:23
WBC 5.3
Hgb 8.5 L
Hct 25.9 L
Plt Count 117 L
Sodium 131 L
Potassium 5.0
Chloride 104
Carbon Dioxide 22
BUN 56 H
Creatinine 1.3
Glucose 226 H
Calcium 7.6 L
Vital Signs:
Vital Signs
Temp Pulse Resp BP Pulse Ox
97.4 F 85 19 110/69 92
12/06/23 13:09 12/06/23 08:00 12/06/23 08:00 12/06/23 06:00 12/06/23 10:06
I&O
12/05/23 12/06/23 12/07/23
06:59 06:59 06:59
Intake Total 475 / 475 1740 / 1740
Output Total 1340 / 1340 518 / 518
Balance -865 / -865 1222 / 1222
Review of Systems
-
Respiratory: Reports No Symptoms
Cardiac: Reports No Symptoms
Abdomen/GI: Reports No Symptoms
Physical Exam
-
General: No Apparent Distress and Comfortable
HEENT: Oxygen
Respiratory: Clear to Auscultation and Chest Tubes (Left side, serosanguineous drainage); Negative Wheezes
Cardiac: Regular Rhythm and S1/S2; Negative Murmur
GI: Soft, Nontender and Nondistended
Neuro: Awake, Alert, Oriented and No Motor Deficits
Psych: Calm
[2023-12-06] MEDS: ROXICODONE 5 MG PO (16:35)
[2023-12-06] MEDS: REVATIO 10 MG PO ×2 (16:36→20:36)
[2023-12-06] MEDS: NOVOLOG FLEXPEN-MODERATE RESISTANCE 3 UNITS SC (16:49)
[2023-12-06 17:01] LABS: Glucose - Point of Care 245 mg/dl (70-99)
[2023-12-06] MEDS: MIRALAX 17 GRAMS PO (17:13)
[2023-12-06] MEDS: FLOMAX 0.400000000000000022 MG PO (17:14)
--- NOTE | 2023-12-06 18:29 | PTCARENOTE ---
OOB all day. CXR and CT scan Chest completed today. Chest tube maintained as ordered. 33ml output this shift kaleigh. Remains on rair 98%. Appetite good, No BM x2 days- Senna and Miralax given. Voids adequate. Kayli given x1 this shift for pain
3- pt requested Roxycodone. good relief of pain. Insulin teaching completed x3 this shift- pt demonstrates adequate knowledge. Did once with present. Midline has been inserted for extended IV antibiotics.
[2023-12-06] MEDS: DESYREL 50 MG PO (20:37)
[2023-12-06] MEDS: FLUSH (NSS) 2 FLUSH IV (20:40)
[2023-12-06 21:21] LABS: Glucose - Point of Care 235 mg/dl (70-99)
[2023-12-07] VITALS (14 sets, daily range): BP systolic 91–159; BP diastolic 46–87; PULSE 89; O2SAT 95; BMI 26.9
[2023-12-07 05:33] LABS: Hematocrit 25.9 % (39.0-52.0); Hemoglobin 8.6 g/dL (13.0-18.0); Mean Corp Hgb Conc. 33.2 g/dL (33.0-37.0); Mean Corpuscular Hgb 32.1 pg (27.0-31.0); Mean Corpuscular Volume 96.6 fL (80.0-94.0); Mean Platelet Volume 10.2 fL (7.4-10.4); Platelet Count 121 10^3/uL (130-400); Red Blood Cell Count 2.68 10^6/uL (4.70-6.10); Red Cell Dist. Width 18.8 % (11.5-14.5); White Blood Cell Count 4.6 10^3/uL (4.8-10.8)
--- NOTE | 2023-12-07 05:46 | PTCARENOTE ---
Pt resting well overnight. AAOx3. VSS Afebrile. SR/BBB/1st AVB. Mild discomfort to left lateral chest from CT. Left CT at -20cm. No crepitus, tidaling, air leaks noted. 100ml s/s drainage in canister. Lungs clear but diminished on left. Ambulating
to bathroom with assist. No change from previous assessment. Turns self in bed. AM labs obtained. Ordered EKG obtained. Call bal remains within reach. Will continue to monitor.
[2023-12-07 06:14] LABS: ALT (SGPT) 15 U/L (0-50); AST (SGOT) 12 U/L (17-59); Albumin 2.6 g/dl (3.5-5.0); Alkaline Phosphatase 60 U/L (38-126); Blood Urea Nitrogen 53 mg/dl (9-20); Calcium 7.9 mg/dl (8.4-10.2); Carbon Dioxide 22 mmol/L (22-30); Chloride 107 mmol/L (98-107); Estimated Creatinine Clearance 61 ml/min; Glucose 219 mg/dl (70-99); Potassium 5.1 mmol/L (3.5-5.1); Sodium 131 mmol/L (135-145); Total Bilirubin 0.6 mg/dl (0.2-1.3); Total Protein 7.7 g/dl (6.3-8.2); eGFR > 60.00
--- NOTE | 2023-12-07 06:48 | PN.DE.MGMTRT ---
Insulin Management
- -
12/07/2023: Diabetes Management F/U:
73 year old male readmitted on 12/02 with significant SOB noted for large left pleural effusion s/p thoracentesis. Diabetes eval is requested on 12/04.
PMH: HTN, HFpEF, RBBB, pulmonary HTN, mild , multiple myeloma, CKD 3B, obesity, prostate cancer s/p Prostatectomy and radiation, B12 deficiency, diverticulitis, sciatica, insomnia, hepatic steatosis, hyponatremia, Pseudomonas bacteremia, renal
stones and T2DM. A1C 7.3% on 11/22, Cr 1.7-->1.5, eGFR 48.55. Pt was taking ~100 units of insulin during recent hospitalization and was transitioned to oral regimen upon discharge; Metformin 1000 mg BID and Glipizide 5mg BID. Pt states that glucose
remained elevated at home since discharge, >300 at times. Glucose on admission was 191, trended up to 422 yesterday. pt was started on AC NovoLog. Glucose has remained elevated, premeal 237 to 390.
Pt awake, A/O x3, sitting up in chair, offers no complaints, able to discuss diabetes management.
Pt remains on steroids- Dexa 8mg BID, contributing to Hyperglycemia.
FBG 219 this AM, Premeal range 245 to 304 requiring 3-7 units of additional corrective throughout day yesterday.
Will increase NovoLog to 16 units AC, and increase Lantus to 25 units BID. Cont moderate corrective with meals.
Will follow and adjust further if needed. Plan of care discussed with pt, Hospitalist and pt's Nurse.
Diabetes History
- -
Type of Diabetes: 2 requiring insulin
Pre-Admission Diabetes Regimen
12/07/23
05:22
Creatinine 1.0
Insulin Pump Settings
IP Diabetes Regimen
12/06/23 12/06/23 12/06/23
07:20 11:29 16:47
Glucose
POC Glucose 259 H 304 H 245 H
12/06/23 12/07/23
21:07 05:22
Glucose 219 H
POC Glucose 235 H
Meal type: Breakfast
Amount consumed: 80%
Patient Education
[2023-12-07 07:53] LABS: Glucose - Point of Care 246 mg/dl (70-99)
[2023-12-07] MEDS: NOVOLOG FLEXPEN-MODERATE RESISTANCE 3 UNITS SC ×2 (08:34→12:24)
[2023-12-07] MEDS: NOVOLOG FLEXPEN 16 UNITS SC ×3 (08:35→17:30)
[2023-12-07] MEDS: ZOVIRAX 400 MG PO ×2 (08:36→20:41)
[2023-12-07] MEDS: ProAmatine 10 MG PO ×3 (08:36→17:26)
[2023-12-07] MEDS: DECADRON 8 MG PO ×2 (08:36→20:41)
[2023-12-07] MEDS: MUCINEX 600 MG PO ×2 (08:36→20:41)
[2023-12-07] MEDS: LANTUS 0.25 UNITS SC ×2 (08:36→21:48)
[2023-12-07] MEDS: HEPARIN 5000 UNITS SC ×2 (08:36→20:40)
[2023-12-07] MEDS: VITAMIN D3 (cholecalciferol) 25 MCG PO (08:36)
[2023-12-07] MEDS: BACTROBAN 2% OINTMENT 1 APPLIC NASAL ×2 (08:37→20:39)
[2023-12-07] MEDS: NON-FORMULARY ITEM 5 MG PO (08:37)
[2023-12-07] MEDS: REVATIO 10 MG PO ×3 (08:38→20:41)
[2023-12-07] MEDS: BACTRIM DS 800 MG/160 MG 1 TABLET PO (08:40)
--- NOTE | 2023-12-07 09:14 | CM ---
Addendum entered by Tanna Park 12/07/23 12:31:
Medication costs covered by insurance will have supplies cost of $140 per week.
Chest tube removed, plan repeat CXR in am.
Shahida garcia aware of possible d/c tomorrow. She will be in to day to initiate teaching, and will reach out to daughter and spouse.
Ene from [facility] updated.
Plan: home with IV anbx thru [facility] and [facility]
family will transport.
[facility]

[facility]

Original Note:
TC to Jessica [facility]ined[facility]. They are reviewing medication costs.
Copy of insurance Cards faxed to [phone].
Shahida will reach out to daughter to set up teaching.
[2023-12-07] MEDS: MAXIPIME 2000 MG IV ×2 (09:27→20:39)
[2023-12-07] MEDS: STERILE WATER FOR INJECTION 10 ML IV ×2 (09:27→20:40)
--- NOTE | 2023-12-07 09:54 | W.PN.PUL.V3 ---
Today's Communication / Plan
-
Chest tube removal-Dr. Vargas contacted and placed order for interventional radiology
Midline placed
Cefepime 2 g IV every 12 hours through 12/27/2023
Outpatient pulmonary follow-up
Assessment
-
73-year-old male with a history of prostate cancer and multiple myeloma refractory to treatment as well as diastolic dysfunction developed significant shortness of breath noted to have large left pleural effusion status postthoracentesis-feeling
much improved-pulmonary consulted for shortness of breath/pleural effusion/infection 12/04/2023.
Assessment
Large left pleural effusion
Status post left thoracentesis-1100 mL 12/03/2023-exudate
pH 7.5-not consistent with empyema
Gram stain positive-cultures pending
Chest tube placement 12/04/2023
Anemia-macrocytic
Hyponatremia
Chronic renal insufficiency
Hyperglycemia
Conditions present prior to admission:
Recent hospitalization for diverticulitis 09/2023
Recent hospitalization 11/21/2023--neurotoxicity related to Talvey-11/2023
Prostate cancer status post prostatectomy 2020 with bilateral pelvic lymphadenectomy and radiation-Dr. Escalona and [facility]
Multiple myeloma-recently placed on new therapy- Talvey
Diabetes.
B12 deficiency.
Diastolic CHF.
Hypertension.
Hyperlipidemia
Pulmonary hypertension.
Diastolic dysfunction with preserved left ventricular function
Mild aortic stenosis
Lumbar spine disease
History of diverticulitis 2015
Renal calculi
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
Cataract surgery
Plan
His respiratory status has improved with fluid removal
Supplemental oxygen as needed-wean to room air
Incentive spirometry
Nebulizers if needed-currently not bronchospastic
His initial CT abdomen reviewed-significant amounts of lung windows noted-moderate sized persistent pleural effusion
Chest tube placed 12/04/2023
Monitor chest tube output--1040 mL / 24-hour-now diminished significantly
Chest x-ray 12/06/2023 with haziness at the left base-? Still some loculated pleural fluid
CT chest 12/06/2023 with small amount of free-flowing fluid still noted-Dr. Vargas reviewed with radiology-not enough fluid for chest tube manipulation and likely ready for removal
Cytology from pleural fluid 12/04/2023-pending
Cultures [id number] bacilli-Pseudomonas
Broad-spectrum antibiotics-initially on Zosyn and now changed to cefepime 2 g IV every 12 hours
Infectious disease following-correspondence reviewed
Now has midline for home administration
Continue attempts at diuresis
Monitor renal function, electrolytes, intake/output, lower extremity edema and weight
Replace electrolytes as needed
Cardiology following-correspondence reviewed
Sildenafil reinitiation in the next 24-48 hours
Renal function improving
Nephrology following-correspondence reviewed
Diuretics resumed
Significant insomnia-trazodone 50 mg restarted
DVT prophylaxis
Nutrition
Early mobilization
Reviewed with nursing as well as Dr. Dorantes-Dr. Vargas also reviewed with his Chanda on 12/07/2023
Outpatient pulmonary follow-up with Dr. Marks
Diagnostic data:
Chest x-ray 03/12/2015-NAD
Chest x-ray 10/22/2022-left lower lobe pneumonia
Chest x-ray 09/09/2023-hypoinflated, basilar atelectasis, no evidence for right-sided rib fracture
Chest x-ray 12/03/2023-status post left thoracentesis, no pneumothorax
CT abdomen and pelvis 06/30/2020-few tiny pulmonary nodules developed since 2018, 2.2 mm right lower lobe, 2.7 mm right lower lobe, 1.2 mm right lower lobe and 3 mm right lower lobe, chronic diverticulosis
CT chest 08/30/2023-numerous small well-defined pulmonary nodules mainly in the upper to mid lungs relatively sparing the lower lungs have increased in size and number when compared to PET scan June 2022, cavitation of a nodule in the apical
region of the right upper lobe, diffuse fatty infiltration
CT abdomen 09/09/2023-mild to moderate dependent atelectasis posterior right lung, several small well-defined pulmonary nodules in the right lung appears unchanged from previous CT, fatty infiltration of the liver, no abscess identified, right-sided
colonic diverticulitis
CT abdomen 12/03/2023-suspected small hepatic abscess, appearance of spleen with infarcts, tiny umbilical hernia, large left lung consolidation with air bronchograms likely representing pneumonia with moderate pleural effusion
CT chest 11/03/2023-small left pleural effusion, moderate left lower lobe consolidation
Thoracentesis 12/03/23-1100 mL punch colored pleural fluid removed
Lower extremity ultrasound 11/21/2023-no evidence for DVT bilaterally
Echocardiogram 03/29/2023-EF 60-65%, trace mitral regurgitation, mildly stenotic aortic valve
Echocardiogram 11/05/2023-EF 40-45%, mild aortic stenosis
PET scan 12/22/2020-FDG avid mixed lytic sclerotic expansile lesion lateral left sixth ribs suspicious for metastatic disease, FDG avid sclerotic focus proximal right tibia suspicious for metastatic disease, T6/7 vertebral area also suspicious as
well as mildly enlarged left axillary lymph nodes
PET scan 06/21/2022-recurrent prostate cancer and prostatectomy surgical bed, moderate number of new small subcentimeter solid nodules in the lungs suspicious for metastatic disease
VQ scan 09/05/2023-low probability for pulm embolism
Subjective Data
-
Date of Service:
Date of Service: December 07, 2023
Chief Complaint: Pulmonary Follow Up, Dyspnea Follow Up and Other (Pleural effusion)
Subjective:
Feels much better, no complaints of shortness of breath, no chest pain, pleurisy, productive cough, anxious to be discharged home
Review of Systems
General: Other (Per HPI)
Objective Data
Data Reviewed
Vital Signs / I&O:
Vital Signs
Temp Pulse Resp BP Pulse Ox
97.8 F 73 16 117/60 93
12/07/23 07:20 12/07/23 06:00 12/07/23 06:00 12/07/23 06:00 12/07/23 04:01
Intake and Output
12/06/23 12/07/23 12/08/23
06:59 06:59 06:59
Intake Total 1740 / 1740 1200 / 1200
Output Total 518 / 518 1658 / 1658
Balance 1222 / 1222 -458 / -458
SaO2: 93
Nasal Cannula flow liters per minute: 2
Physical Exam
General: Respiratory Distress (n) and Comfortable
HEENT: Normocephalic, Anicteric and Moist Mucous Membranes
Cardiovascular: Regular Rhythm
Respiratory: Wheeze (n), Crackles (Left greater than right base), Rhonchi (n), Non-Labored Respirations, Accessory Resp Muscle Use (n) and Stridor (n)
GI: Soft, Non Distended and Non Tender
Neurology: Awake, Alert and No Motor Deficits
Skin: Warm, Good Color, Cyanosis (n), Jaundice (n) and Rash (n)
Labs/Micro/Reports
Lab Data
12/07/23 05:22
12/07/23 05:22
Microbiology
12/03/23 00:26 Blood/Venous Blood Culture - Preliminary
No Growth in 4 days- Final report to follow
12/03/23 00:26 Blood/Venous Blood Culture - Preliminary
No Growth in 4 days- Final report to follow
12/05/23 10:38 Pleural Fluid Body Fluid Culture - Preliminary
No Growth After 18-24 Hours
12/05/23 10:38 Pleural Fluid Gram Stain - Preliminary
12/03/23 12:02 Pleural Fluid Body Fluid Culture - Final
Pseudomonas aeruginosa
Pseudomonas aeruginosa#2
12/03/23 12:02 Pleural Fluid Gram Stain - Final
12/05/23 10:38 Pleural Fluid Fungal Smear - Final
No yeast or fungal elements seen.
12/05/23 10:38 Pleural Fluid Fungal Culture - Preliminary
Culture in progress.
Positive cultures are reported as soon as detected.
Final report to follow in four to five weeks.
12/03/23 12:02 Pleural Fluid Fungal Smear - Final
No yeast or fungal elements seen.
12/03/23 12:02 Pleural Fluid Fungal Culture - Preliminary
Culture in progress.
Positive cultures are reported as soon as detected.
Final report to follow in four to five weeks.
--- NOTE | 2023-12-07 10:11 | W.PN.ID1 ---
Date of Service
Date of Service: December 07, 2023
Today's Communication
Continue antibiotics.
Assessment / Plan
# Left empyema with Pseudomonas
# Recent hx Pseudomonas bacteremia (11/03/23) treated
# Prolonged QTc
# Immunocompromised host: Refractory multiple myeloma, recent Talvey
- Pleural fluid Cx: Pseudomonas (pansensitive)
- s/p chest tube placement, possible dc chest tube today, per pulm
- Underlying prolonged QTc precludes use of quinolones.
- Continue cefepime 2g IV q12h through 12/27/23.
- Ordered midline.
- Home infusion sheet submitted to rehabilitation case coordinator.
- Continue prophylactic acyclovir and Bactrim MWF.
#Additional Past Medical History:
Refractory Multiple myeloma, recent new regimen Talvey
DM type 2
Hypertension
Congestive heart failure slight reduced EF
Pulmonary hypertension
Nephrolithiasis
CKD3b
Pulmonary nodules
Diverticulitis
Fatty liver
hx Patt 9 prostate cancer s/p prostatectomy/XRT (2020) with recurrence by PET
����������������������������������������������������������
Chief Complaint
-: Pneumonia and Other (Left empyema 2* Pseudomonas)
Subjective / Review of Systems
Patient seen and examined. No specific complaints today other than constipation attributed to narcotic use. Breathing comfortable.
Review of Systems: No Fever and No Chills
Vital Signs / Physical Exam
Vital Signs
Vital Signs
Temp Pulse Resp BP Pulse Ox
97.8 F 91 21 112/50 93
12/07/23 07:20 12/07/23 10:00 12/07/23 10:00 12/07/23 10:12/07/23 09:54
Physical Exam
Constitutional: No Acute Distress, Comfortable and Non-toxic
Eyes: No Conjunctival Hemorrhage and Sclera Anicteric
Cardiovascular: S1/S2; Negative S3/S4
Pulmonary: Clear, Non Labored and Other (Left chest tube in place.); Negative Wheezes or Rales
Gastrointestinal: Soft, Non Tender and Non Distended
Extremities: Negative Edema, Cyanosis or Erythema
Skin: Warm and Dry; Negative Rash or Jaundice
Neurological: Awake and Alert
Objective Data
Lab Data
Lab Results
12/07/23 05:22
12/07/23 05:22
Estimated Creat Clear 61 ml/min 12/07/23 05:22
Lactic Acid 1.8 mmol/L (0.7-2.0) 12/03/23 00:26
Total Bilirubin 0.6 mg/dl (0.2-1.3) 12/07/23 05:22
AST 12 U/L (17-59) L 12/07/23 05:22
ALT 15 U/L (0-50) 12/07/23 05:22
Alkaline Phosphatase 60 U/L (38-126) 12/07/23 05:22
Most recent labs reviewed.
Micro Results:
12/03/23 00:26 Blood Culture - Preliminary
Blood/Venous No Growth in 4 days- Final report to follow
12/03/23 00:26 Blood Culture - Preliminary
Blood/Venous No Growth in 4 days- Final report to follow
12/05/23 10:38 Body Fluid Culture - Preliminary
Pleural Fluid No Growth After 18-24 Hours
Gram Stain - Preliminary
12/03/23 12:02 Body Fluid Culture - Final
Pleural Fluid Pseudomonas aeruginosa
Pseudomonas aeruginosa#2
Gram Stain - Final
12/05/23 10:38 Fungal Smear - Final
Pleural Fluid No yeast or fungal elements seen.
Fungal Culture - Preliminary
Culture in progress.
Positive cultures are reported as soon as detected.
Final report to follow in four to five weeks.
12/03/23 12:02 Fungal Smear - Final
Pleural Fluid No yeast or fungal elements seen.
Fungal Culture - Preliminary
Culture in progress.
Positive cultures are reported as soon as detected.
Final report to follow in four to five weeks.
12/05/23 10:38 Acid Fast Bacilli Smear - Pending
Pleural Fluid Acid Fast Bacilli Culture - Pending
12/03/23 00:27 Influenza Types A & B (ARMEN) - Final
Nasal Swab Negative for Influenza A & B, NAAT
Negative results must be combined with clinical observations
and patient history.
Nucleic Acid Amplification test (NAAT)performed on the
[employer] platform.
Pleural fluid Cult - Final 12/03/2023
1. Pseudomonas aeruginosa
M.I.C. RX
--------- ---
Cefepime <=2 S
Ceftazidime 4 S
Ciprofloxacin 0.5 S
Gentamicin <=4 S
Levofloxacin 1 S
Meropenem <=1 S
Piperacillin/Tazobactam <=16 S
Tobramycin <=4 S
2. Pseudomonas aeruginosa#2
M.I.C. RX
--------- ---
Cefepime <=2 S
Ceftazidime 4 S
Ciprofloxacin <=0.25 S
Gentamicin <=4 S
Levofloxacin 1 S
Meropenem <=1 S
Piperacillin/Tazobactam <=16 S
Tobramycin <=4 S
Imaging:
12/03/23 CXR: Moderate to large left pleural effusion with associated atelectasis and/or pneumonia, progressed.
--- NOTE | 2023-12-07 10:24 | PN.IRAD.UPD ---
Update Note - IRAD
- -
left side chest tube removed at bedside. New clean ,dry dressing placed over site. Patient tolerated procedure well. RN notified
--- NOTE | 2023-12-07 10:42 | W.PN.UPDATE ---
Update Note
Progress Note Update
Left chest tube removed at bedside. Vaseline gauze and DSD applied. Pt tolerated the procedure well. Change dressing as needed
[2023-12-07] MEDS: DULCOLAX 10 MG PO (11:28)
--- NOTE | 2023-12-07 11:30 | PTCARENOTE ---
Assumed care of patient at beginning of this shift with CT at -20cm suction, dressing intact and no c/o sob or cp. Pulmonary in to see patient and ordered CT d/c'd. IR up to remove CT at bedside; dressing currently d&i. Patient c/o constipation;
dulcolax po ordered and given.
Patient seen by Gonzalo Ramey, personal development educator; lantus and mealtime novolog increased. This RN also did education with patient and had him dial up insulin on novolog pen and self-inject. Patient needed a lot of review and cuing, especially dialing up
correct dose with the addition of the sliding scale coverage. He stated his would also like to speak with the personal development educator to review home insulins, she will be in this afternoon; tiger text sent to Gonzalo Ramey.
[2023-12-07 11:43] LABS: Glucose - Point of Care 221 mg/dl (70-99)
--- NOTE | 2023-12-07 11:51 | W.PN.CARDCBS ---
Today's Communication / Plan
-
Chest tube has been removed. Will give Lasix 40 mg daily today and then start his outpatient dose of 80 mg daily tomorrow.
Creatinine is normal.
Continue Letairis and will start sildenafil in a.m.
Impression / Plan
-
Primary Auto Service Instructor: Dr. Ginger Lal
PCP: Dr. Hunter
Impression:
-Left pleural effusion with severe pleuritic pain
-Acute kidney injury
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
-Admission to [facility], discharged 11/19/2023 after initiation of Talvey (talquetamab) therapy for refractory myeloma
-Active Multiple myeloma
-Diverticular abscess, treated with Augmentin, with hx diverticulitis 2015
-Ching-Splenic hematoma following fall 2023
-Recent left lower lobe pneumonia 10/2023
-Recent Pseudomonas bacteremia
-Concern for septic emboli of lungs by review of records from [place], not confirmed
-Pulmonary hypertension and chronic RV dysfunction/heart failure with preserved ejection fraction
-Mild aortic stenosis
-Hypertension
-Dyslipidemia on red yeast rice
-CT imaging noting coronary atherosclerosis without history of [place]
-Aortic atherosclerosis without aneurysm
-Right bundle branch block
-Type 2 diabetes mellitus
-Fatty liver infiltration
-Hx prostate cancer status post prostatectomy
-Degenerative joint disease of lumbar spine
-Hyponatremia
Echocardiogram 08/30/2023: Ejection fraction 55 to 60%, D-shaped septum in systole and diastole consistent with RV pressure and volume overload, mild aortic stenosis with mean gradient of 11 mmHg aortic valve area 1.5 cm�, mild TR with PA systolic of
55 mmHg
Echo 11/05/2023: Mildly reduced left ventricular systolic function. Global hypokinesis. Abnormal (paradoxical) septal motion consistent with left bundle branch block. Flattened septum in systole consistent with RV pressure overload. Left ventricular
ejection fraction is 40-45 %. Trace mitral regurgitation. Aortic valve peak/mean gradients are 23/15 mmHg. MARYELLEN 1.2 cm2. Mild aortic stenosis. Estimated pulmonary artery pressure of 30-35 mmHg.
Right heart catheterization 09/13/2023
Hemodynamics (mmHg):
RA (m) : 13
RV (s/d,m) : 77/12, 17
PA (s/d, m) : 77/23, 48
PCWP (m) : 18
Cardiac Output : 5.2 L/min
Cardiac Index : 2.5 L/min/m-2
Systemic vascular resistance: 13.5 Wood units or 1077 [id number](-5)
Pulmonary vascular resistance: 5.8 Wood units or 461 [id number](-5)
Plan:
He presents with a very large left pleural effusion significantly increased since the chest CT of November 20
Chest tube was placed and was removed this morning. His weight is overall down. Will restart Lasix today. Will give 40 mg p.o. today and then 80 mg daily starting tomorrow. Creatinine is much improved. And now normal. Sodium is stable at 131.
Pressor weaned off
cont Midodrine added
Continue Ambrisentan
likely restart Sildenafil over next 24 hours
Progress Note - Auto Service Instructor
Subjective
Date of Service: December 07, 2023
Feeling better and chest tube has been removed.
Objective
Labs:
12/07/23 05:22
12/07/23 05:22
Labs
Hgb 8.6 g/dL (13.0-18.0) L 12/07/23 05:22
Hct 25.9 % (39.0-52.0) L 12/07/23 05:22
Plt Count 121 10^3/uL (130-400) L 12/07/23 05:22
Sodium 131 mmol/L (135-145) L 12/07/23 05:22
Potassium 5.1 mmol/L (3.5-5.1) 12/07/23 05:22
BUN 53 mg/dl (9-20) H 12/07/23 05:22
Creatinine 1.0 mg/dL (0.7-1.3) 12/07/23 05:22
Glucose 219 mg/dl (70-99) H 12/07/23 05:22
Vital Signs and I&O:
Vital Signs
Temp Pulse Resp BP Pulse Ox
98.0 F 91 21 112/50 93
12/07/23 11:05 12/07/23 10:00 12/07/23 10:00 12/07/23 10:00 12/07/23 09:54
Vital Signs
Temp Pulse Resp BP Pulse Ox
98.0 F 91 21 112/50 93
12/07/23 11:05 12/07/23 10:00 12/07/23 10:00 12/07/23 10:00 12/07/23 09:54
Intake & Output
12/05/23 12/06/23 12/07/23 12/08/23
06:59 06:59 06:59 06:59
Intake Total 475 / 475 1740 / 1740 1200 / 1200
Output Total 1340 / 1340 518 / 518 1658 / 1658
Balance -865 / -865 1222 / 1222 -458 / -458
Physical Exam
Physical Exam
GEN: No distress, awake, Ox3
HEENT: supple, anicteric, mmm
LUNGS: CTA, no wheezes/rales
CV: Reg, S1/S2, 1/6 syst LSB, no gallop
ABD: soft, BS+, NT/ND
EXT: No edema
NEURO: Gross non-focal
SKIN: No rash
--- NOTE | 2023-12-07 12:00 | PTCARENOTE ---
Diabetes Education- Met with Dasia and his who was on speaker phone at home. Discussed action of both rapid acting and long acting insulins. Proper timing of meal time insulin is to check blood sugar, inject insulin and eat in approximately 15
minutes. Long acting to be taken BID and at the same time each morning and evening. To inject rapid acting in abdomen and long acting in outer thigh. Discussed symptoms and treatment of hypoglycemia (which he has experienced in the past). Both Dasia
and Chanda are aware that as steroids are decreased, so should his blood sugars, they will call their PCP for insulin adjustments. Instructions with good return demonstration x3 using the insulin pen. Many questions answered. Education booklet with
phone number for questions as well as information marked. Log sheet provided to assist with organizing. He will need RX for more test strips for him home glucometer.
[2023-12-07] MEDS: LASIX 40 MG PO (12:25)
--- NOTE | 2023-12-07 14:36 | W.PN.HOSP.TC ---
Today's Communication/Plan
-
see note
discharge in AM possibly
Assessment / Plan
Assessment / Plan
1. Septic shock - resolved
-Required small dose of Levophed support for first 24hr
-maintain on PRN midodrine at this point for SBP < 100
2. Left empyema from Pseudomonas
-Patient was found to having effusion on chest x-ray
-Lower left lung sections captured on CT abdomen pelvis reviewed. no large loculation.
-on 12/02 S/p drainage of 1.1 L punch colored pleural fluid on 12/02 TWBC 1007 PMN 76% LDH 323. fluid culture growing pansensitive pseudomonas.
-Post Thora x-ray still showing residual effusion and got CT tube placement on 12/03 and drained 1040 fluid overnight. repeat labs ordered, was not collected in IR dept yesterday , Asked RN to send samples to labs,.
-Repeat CXR in showing improvement in left empyema, some residual effusion left.
-Repeat CT chest reviewed. Patient with small collection not amenable to repositioning of CT tube. IRAD planning to remove CT tube today
-Follow-up chest x-ray in the morning ordered.
-Patient will require to go on IV cefepime. Unsafe to be on oral Levaquin with elevated QTc.
3. ANAI - resolved
-Creatinine elevated 1.7 at admission. Baseline of 1.1
-Lasix back on.
-Nephrology is involved in care for further evaluation
4. Multiple myeloma
-This has remained somewhat refractory to treatments.
-Currently on dexamethasone/talvey
-Hbg 9.9 and plt 140k and continue monitoring.
-Continue prophylactic acyclovir and Bactrim mowefr
-Discussed with carbon capture power plant operator oncology who talked to Dr Lewis, patient will need rehab before can be considered for any further therapy.
-SPEP/FLC ratio labs sent with CBC CMP on primary oncology request
5. Type 2 diabetes mellitus
-Remains significantly uncontrolled
-last a1c of 7.3
-Discussed with diabetic SURGICAL SUPPLY ASSISTANT who recommended patient to be discharged on current insulin regimen. Patient has been educated regarding giving insulin injection and comfortable doing at home
6. Pulm HTN
- continue ambrisentan, sildenafil resumed at lower dose due to soft BP
Hyponatremia
Prostate cancer status post prostatectomy 2020 with bilateral pelvic lymphadenectomy and radiation-Dr. Escalona and [facility]
Chronic Diastolic CHF
Essential Hypertension
Hyperlipidemia
Mild aortic stenosis
History of diverticulitis
History of nephrolithiasis
Cataract surgery
Full code
Anticipated Discharge: Within 24 hours
Subjective/Interval History
-
Date of Service: December 07, 2023
Resting comfortably in chair
No complaints overnight
Objective Data
-
Labs:
Laboratory Results
12/07/23
05:22
WBC 4.6 L
Hgb 8.6 L
Hct 25.9 L
Plt Count 121 L
Sodium 131 L
Potassium 5.1
Chloride 107
Carbon Dioxide 22
BUN 53 H
Creatinine 1.0
Glucose 219 H
Calcium 7.9 L
Total Bilirubin 0.6
AST 12 L
ALT 15
Alkaline Phosphatase 60
Vital Signs:
Vital Signs
Temp Pulse Resp BP Pulse Ox
98.0 F 84 23 115/57 93
12/07/23 11:05 12/07/23 14:00 12/07/23 14:00 12/07/23 14:00 12/07/23 09:54
I&O
12/06/23 12/07/23 12/08/23
06:59 06:59 06:59
Intake Total 1740 / 1740 1200 / 1200
Output Total 518 / 518 1658 / 1658
Balance 1222 / 1222 -458 / -458
Review of Systems
-
Respiratory: Reports No Symptoms
Cardiac: Reports No Symptoms
Abdomen/GI: Reports Constipated
Physical Exam
-
General: No Apparent Distress and Comfortable
HEENT: Oxygen
Respiratory: Clear to Auscultation and Chest Tubes (Left side, serosanguineous drainage); Negative Wheezes
Cardiac: Regular Rhythm and S1/S2; Negative Murmur
GI: Soft, Nontender and Nondistended
Neuro: Awake, Alert, Oriented and No Motor Deficits
Psych: Calm
[2023-12-07] MEDS: NOVOLOG FLEXPEN-MODERATE RESISTANCE SC (16:48)
[2023-12-07 16:55] LABS: Glucose - Point of Care 136 mg/dl (70-99)
[2023-12-07] MEDS: FLOMAX 0.400000000000000022 MG PO (17:26)
[2023-12-07] MEDS: FLUSH (NSS) 2 FLUSH IV (20:40)
[2023-12-07] MEDS: DESYREL 50 MG PO (20:41)
--- NOTE | 2023-12-07 21:27 | PTCARENOTE ---
Pt received at beginning of shift resting in chair. Chest tube out on day shift. Dressing c/d/i. Lungs clear diminished on left side. RA POX 96% RR 20. Rest of VSS afebrile. SR/BBB/1st AVB on CM. Back to bed. HS meds given. Rest of assessment as
documented. Call bal remains within reach. Will continue to monitor.
[2023-12-07 21:55] LABS: Glucose - Point of Care 134 mg/dl (70-99)
[2023-12-08] VITALS (7 sets, daily range): BP systolic 103–114; BP diastolic 51–66; BMI 27.2
[2023-12-08 04:26] LABS: Hematocrit 25.7 % (39.0-52.0); Hemoglobin 8.7 g/dL (13.0-18.0); Mean Corp Hgb Conc. 33.9 g/dL (33.0-37.0); Mean Corpuscular Hgb 31.9 pg (27.0-31.0); Mean Corpuscular Volume 94.1 fL (80.0-94.0); Mean Platelet Volume 10.2 fL (7.4-10.4); Platelet Count 127 10^3/uL (130-400); Red Blood Cell Count 2.73 10^6/uL (4.70-6.10); Red Cell Dist. Width 18.7 % (11.5-14.5); White Blood Cell Count 4.6 10^3/uL (4.8-10.8)
[2023-12-08 04:52] LABS: ALT (SGPT) 18 U/L (0-50); AST (SGOT) 13 U/L (17-59); Albumin 2.6 g/dl (3.5-5.0); Alkaline Phosphatase 61 U/L (38-126); Blood Urea Nitrogen 50 mg/dl (9-20); Calcium 7.9 mg/dl (8.4-10.2); Carbon Dioxide 23 mmol/L (22-30); Chloride 108 mmol/L (98-107); Estimated Creatinine Clearance 55 ml/min; Glucose 157 mg/dl (70-99); Potassium 4.9 mmol/L (3.5-5.1); Sodium 133 mmol/L (135-145); Total Bilirubin 0.4 mg/dl (0.2-1.3); Total Protein 7.7 g/dl (6.3-8.2); eGFR > 60.00
[2023-12-08 07:42] LABS: Glucose - Point of Care 165 mg/dl (70-99)
[2023-12-08] MEDS: DECADRON 8 MG PO (07:58)
[2023-12-08] MEDS: LASIX 80 MG PO (07:58)
[2023-12-08] MEDS: ZOVIRAX 400 MG PO (07:58)
[2023-12-08] MEDS: MUCINEX 600 MG PO (07:58)
[2023-12-08] MEDS: REVATIO 10 MG PO (07:58)
[2023-12-08] MEDS: LANTUS 0.25 UNITS SC (07:59)
[2023-12-08] MEDS: VITAMIN D3 (cholecalciferol) 25 MCG PO (07:59)
[2023-12-08] MEDS: NOVOLOG FLEXPEN 16 UNITS SC (08:00)
[2023-12-08] MEDS: NOVOLOG FLEXPEN-MODERATE RESISTANCE 1 UNITS SC (08:00)
[2023-12-08] MEDS: NON-FORMULARY ITEM 5 MG PO (08:01)
[2023-12-08] MEDS: BACTROBAN 2% OINTMENT 1 APPLIC NASAL (08:01)
[2023-12-08] MEDS: HEPARIN 5000 UNITS SC (08:02)
--- NOTE | 2023-12-08 08:22 | W.PN.CARDCBS ---
Today's Communication / Plan
-
Continue Lasix 80 mg p.o. daily. Weight is overall stable and creatinine is normal.
Continue Ambrisentan and sildenafil for pulm hypertension.
OK for D/C from cardiology
Impression / Plan
-
Primary Analog Ic Design Architect: Dr. Ginger Lal
PCP: Dr. Hunter
Impression:
-Left pleural effusion with severe pleuritic pain
-Acute kidney injury
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
-Admission to [facility], discharged 11/19/2023 after initiation of Talvey (talquetamab) therapy for refractory myeloma
-Active Multiple myeloma
-Diverticular abscess, treated with Augmentin, with hx diverticulitis 2015
-Ching-Splenic hematoma following fall 2023
-Recent left lower lobe pneumonia 10/2023
-Recent Pseudomonas bacteremia
-Concern for septic emboli of lungs by review of records from [place], not confirmed
-Pulmonary hypertension and chronic RV dysfunction/heart failure with preserved ejection fraction
-Mild aortic stenosis
-Hypertension
-Dyslipidemia on red yeast rice
-CT imaging noting coronary atherosclerosis without history of [place]
-Aortic atherosclerosis without aneurysm
-Right bundle branch block
-Type 2 diabetes mellitus
-Fatty liver infiltration
-Hx prostate cancer status post prostatectomy
-Degenerative joint disease of lumbar spine
-Hyponatremia
Echocardiogram 08/30/2023: Ejection fraction 55 to 60%, D-shaped septum in systole and diastole consistent with RV pressure and volume overload, mild aortic stenosis with mean gradient of 11 mmHg aortic valve area 1.5 cm�, mild TR with PA systolic of
55 mmHg
Echo 11/05/2023: Mildly reduced left ventricular systolic function. Global hypokinesis. Abnormal (paradoxical) septal motion consistent with left bundle branch block. Flattened septum in systole consistent with RV pressure overload. Left ventricular
ejection fraction is 40-45 %. Trace mitral regurgitation. Aortic valve peak/mean gradients are 23/15 mmHg. MARYELLEN 1.2 cm2. Mild aortic stenosis. Estimated pulmonary artery pressure of 30-35 mmHg.
Right heart catheterization 09/13/2023
Hemodynamics (mmHg):
RA (m) : 13
RV (s/d,m) : 77/12, 17
PA (s/d, m) : 77/23, 48
PCWP (m) : 18
Cardiac Output : 5.2 L/min
Cardiac Index : 2.5 L/min/m-2
Systemic vascular resistance: 13.5 Wood units or 1077 [id number](-5)
Pulmonary vascular resistance: 5.8 Wood units or 461 [id number](-5)
Plan:
Chest tube is out and he feels well. Continue Lasix 80 mg p.o. daily.
Creatinine is normal at 1.1. Sodium is also improved to 133.
Back on sildenafil
cont Midodrine
Continue Ambrisentan
Progress Note - Analog Ic Design Architect
Subjective
Date of Service: December 08, 2023
Feels well and breathing is stable
Objective
Labs:
12/08/23 04:03
12/08/23 04:03
Labs
Hgb 8.7 g/dL (13.0-18.0) L 12/08/23 04:03
Hct 25.7 % (39.0-52.0) L 12/08/23 04:03
Plt Count 127 10^3/uL (130-400) L 12/08/23 04:03
Sodium 133 mmol/L (135-145) L 12/08/23 04:03
Potassium 4.9 mmol/L (3.5-5.1) 12/08/23 04:03
BUN 50 mg/dl (9-20) H 12/08/23 04:03
Creatinine 1.1 mg/dL (0.7-1.3) 12/08/23 04:03
Glucose 157 mg/dl (70-99) H 12/08/23 04:03
Vital Signs and I&O:
Vital Signs
Temp Pulse Resp BP Pulse Ox
98.4 F 80 19 108/56 96
12/08/23 03:39 12/08/23 06:00 12/08/23 06:00 12/08/23 06:00 12/07/23 19:24
Vital Signs
Temp Pulse Resp BP Pulse Ox
98.4 F 80 19 108/56 96
12/08/23 03:39 12/08/23 06:00 12/08/23 06:00 12/08/23 06:00 12/07/23 19:24
Intake & Output
12/06/23 12/07/23 12/08/23 12/09/23
06:59 06:59 06:59 06:59
Intake Total 1740 / 1740 1200 / 1200 100 / 100
Output Total 518 / 518 1658 / 1658
Balance 1222 / 1222 -458 / -458 100 / 100
Physical Exam
Physical Exam
GEN: No distress, awake, Ox3
HEENT: supple, anicteric, mmm
LUNGS: scatt rhonchi
CV: Reg, S1/S2, 2/6 syst LSB, no gallop
ABD: soft, BS+, NT/ND
EXT: No edema
NEURO: Gross non-focal
SKIN: No rash
--- NOTE | 2023-12-08 08:47 | W.PN.ID1 ---
Date of Service
Date of Service: December 08, 2023
Today's Communication
Continue antibiotics.
Assessment / Plan
# Left empyema with Pseudomonas
# Recent hx Pseudomonas bacteremia (11/03/23) treated
# Prolonged QTc
# Immunocompromised host: Refractory multiple myeloma, recent Talvey
- Pleural fluid Cx: Pseudomonas (pansensitive)
- s/p chest tube placement, possible dc chest tube today, per pulm
- Underlying prolonged QTc precludes use of quinolones.
- Continue cefepime 2g IV q12h through 12/27/23.
- Ordered midline.
- Home infusion sheet submitted to case packer.
- Continue prophylactic acyclovir and Bactrim MWF.
#Additional Past Medical History:
Refractory Multiple myeloma, recent new regimen Talvey
DM type 2
Hypertension
Congestive heart failure slight reduced EF
Pulmonary hypertension
Nephrolithiasis
CKD3b
Pulmonary nodules
Diverticulitis
Fatty liver
hx Patt 9 prostate cancer s/p prostatectomy/XRT (2020) with recurrence by PET
����������������������������������������������������������
Chief Complaint
-: Pneumonia and Other (Left empyema 2* Pseudomonas)
Subjective / Review of Systems
Patient seen and examined. Overall feels well. Chest tube removed. Breathing is comfortable.
Review of Systems: No Fever and No Chills
Vital Signs / Physical Exam
Vital Signs
Vital Signs
Temp Pulse Resp BP Pulse Ox
98.4 F 80 19 108/56 96
12/08/23 07:37 12/08/23 06:00 12/08/23 06:00 12/08/23 06:00 12/07/23 19:24
Physical Exam
Constitutional: No Acute Distress, Comfortable and Non-toxic
Eyes: Sclera Anicteric
Cardiovascular: S1/S2; Negative S3/S4
Pulmonary: Symmetric and Non Labored; Negative Wheezes or Rales
Gastrointestinal: Soft, Non Tender and Non Distended
Neurological: Awake, Alert and Oriented
Psychological: Calm
Lines: PICC (Right upper extremity midline in place.)
Objective Data
Lab Data
Lab Results
12/08/23 04:03
12/08/23 04:03
Estimated Creat Clear 55 ml/min 12/08/23 04:03
Lactic Acid 1.8 mmol/L (0.7-2.0) 12/03/23 00:26
Total Bilirubin 0.4 mg/dl (0.2-1.3) 12/08/23 04:03
AST 13 U/L (17-59) L 12/08/23 04:03
ALT 18 U/L (0-50) 12/08/23 04:03
Alkaline Phosphatase 61 U/L (38-126) 12/08/23 04:03
Most recent labs reviewed.
Micro Results:
12/03/23 00:26 Blood Culture - Final
Blood/Venous No Growth - Final Report
12/03/23 00:26 Blood Culture - Final
Blood/Venous No Growth - Final Report
12/05/23 10:38 Acid Fast Bacilli Smear - Preliminary
Pleural Fluid Acid Fast Bacilli Culture - Preliminary
12/05/23 10:38 Body Fluid Culture - Preliminary
Pleural Fluid No Growth After 48 Hours
Gram Stain - Preliminary
12/03/23 12:02 Body Fluid Culture - Final
Pleural Fluid Pseudomonas aeruginosa
Pseudomonas aeruginosa#2
Gram Stain - Final
12/05/23 10:38 Fungal Smear - Final
Pleural Fluid No yeast or fungal elements seen.
Fungal Culture - Preliminary
Culture in progress.
Positive cultures are reported as soon as detected.
Final report to follow in four to five weeks.
12/03/23 12:02 Fungal Smear - Final
Pleural Fluid No yeast or fungal elements seen.
Fungal Culture - Preliminary
Culture in progress.
Positive cultures are reported as soon as detected.
Final report to follow in four to five weeks.
12/03/23 00:27 Influenza Types A & B (ARMEN) - Final
Nasal Swab Negative for Influenza A & B, NAAT
Negative results must be combined with clinical observations
and patient history.
Nucleic Acid Amplification test (NAAT)performed on the
[employer] platform.
Pleural fluid Cult - Final 12/03/2023
1. Pseudomonas aeruginosa
M.I.C. RX
--------- ---
Cefepime <=2 S
Ceftazidime 4 S
Ciprofloxacin 0.5 S
Gentamicin <=4 S
Levofloxacin 1 S
Meropenem <=1 S
Piperacillin/Tazobactam <=16 S
Tobramycin <=4 S
2. Pseudomonas aeruginosa#2
M.I.C. RX
--------- ---
Cefepime <=2 S
Ceftazidime 4 S
Ciprofloxacin <=0.25 S
Gentamicin <=4 S
Levofloxacin 1 S
Meropenem <=1 S
Piperacillin/Tazobactam <=16 S
Tobramycin <=4 S
Imaging:
12/03/23 CXR: Moderate to large left pleural effusion with associated atelectasis and/or pneumonia, progressed.
--- NOTE | 2023-12-08 09:45 | W.PN.HOSP.TC ---
Addendum entered and electronically signed by Duong Dorantes MD 12/09/23 11:40:
Contacted by family post discharge on 6/2 AM ;
Got a call from daughter glenis
- dexamethasone indication unclear and was supposed to be stopped at 11/26. Was continued at admission erroneously and then continued at discharge by me as well. Discussed with any of for patient to be rapidly tapered off of dexamethasone in 48
hours. Total use is less than 15 days and low risk of HPA axis suppression.
- Insulin requirement likely to become down as well. Daughter not providing Lantus as blood glucose has been in 100-150 range. Agreed to hold Lantus for now. After discontinuation of dexamethasone Humalog dose can be decreased as well. Continue
metformin dose. Daughter questioning if she would be started back on sulfonylureas, recommended against it as patient have acute renal injury this admission and with complex underlying medical problems/multiple myeloma can have recurrence of renal
failure causing life-threatening hypoglycemia with sulfonylurea use. Daughter in agreement. And will discuss with primary care physician as well.
Addendum entered and electronically signed by Duong Dorantes MD 12/08/23 15:58:
Post discharge changes:
On Discharge instruction erroneously entered ecoli empyema and corrected to Pseudomonas empyema
Also Novolog not covered with insurcance, family contacted RN and have sent humalog kwikpen injection instead.
Original Note:
Today's Communication/Plan
-
d/c home with home care
Assessment / Plan
Assessment / Plan
1. Septic shock - resolved
-Required small dose of Levophed support for first 24hr
-maintain on PRN midodrine at this point for SBP < 100
2. Left empyema from Pseudomonas
-Patient was found to having effusion on chest x-ray
-Lower left lung sections captured on CT abdomen pelvis reviewed. no large loculation.
-on 12/02 S/p drainage of 1.1 L punch colored pleural fluid on 12/02 TWBC 1007 PMN 76% LDH 323. fluid culture growing pansensitive pseudomonas.
-Post Thora x-ray still showing residual effusion and got CT tube placement on 12/03 and drained 1040 fluid overnight. repeat labs ordered, was not collected in IR dept yesterday , Asked RN to send samples to labs,.
-Repeat CXR in showing improvement in left empyema, some residual effusion left.
-Repeat CT chest reviewed. Patient with small collection not amenable to repositioning of CT tube. IRAD removed CT tube yesterday
-Follow-up chest x-ray in the morning today showed stable residual left sided effusion.
-Patient will require to go on IV cefepime. Unsafe to be on oral Levaquin with elevated QTc.
3. ANAI - resolved
-Creatinine elevated 1.7 at admission. Baseline of 1.1
-Lasix back on.
-Nephrology is involved in care for further evaluation
4. Multiple myeloma
-This has remained somewhat refractory to treatments.
-Currently on dexamethasone/talvey
-Hbg 9.9 and plt 140k and continue monitoring.
-Continue prophylactic acyclovir and Bactrim mowefr
-Discussed with stone splitter oncology who talked to Dr Lewis, patient will need rehab before can be considered for any further therapy.
-SPEP/FLC ratio labs sent with CBC CMP on primary oncology request
5. Type 2 diabetes mellitus
-Remains significantly uncontrolled
-last a1c of 7.3
-Discussed with diabetic TIERCE FILLER who recommended patient to be discharged on current insulin regimen. Patient has been educated regarding giving insulin injection and comfortable doing at home
6. Pulm HTN
- continue ambrisentan, sildenafil resumed at lower dose due to soft BP
Hyponatremia
Prostate cancer status post prostatectomy 2020 with bilateral pelvic lymphadenectomy and radiation-Dr. Escalona and [facility].
Chronic Diastolic CHF
Essential Hypertension
Hyperlipidemia
Mild aortic stenosis
History of diverticulitis
History of nephrolithiasis
Cataract surgery
Full code
More than 30 minutes spent in discharge including
Final examination of the patient
Summarizing hospital stay
Instructions for continuing care to all relevant caregivers
Preparation of discharge records, prescriptions, and referral forms
Total time spent (in minutes): 38 mins
Anticipated Discharge: Today
Subjective/Interval History
-
Date of Service: December 08, 2023
no issues overnight
Objective Data
-
Labs:
Laboratory Results
12/08/23
04:03
WBC 4.6 L
Hgb 8.7 L
Hct 25.7 L
Plt Count 127 L
Sodium 133 L
Potassium 4.9
Chloride 108 H
Carbon Dioxide 23
BUN 50 H
Creatinine 1.1
Glucose 157 H
Calcium 7.9 L
Total Bilirubin 0.4
AST 13 L
ALT 18
Alkaline Phosphatase 61
Vital Signs:
Vital Signs
Temp Pulse Resp BP Pulse Ox
98.4 F 77 20 105/60 96
12/08/23 07:37 12/08/23 08:00 12/08/23 08:00 12/08/23 08:00 12/08/23 08:25
I&O
12/07/23 12/08/23 12/09/23
06:59 06:59 06:59
Intake Total 1200 / 1200 100 / 100
Output Total 1658 / 1658
Balance -458 / -458 100 / 100
Review of Systems
-
Respiratory: Reports No Symptoms
Cardiac: Reports No Symptoms
Abdomen/GI: Reports No Symptoms
Physical Exam
-
General: No Apparent Distress and Comfortable
HEENT: Oxygen
Respiratory: Clear to Auscultation; Negative Wheezes
Cardiac: Regular Rhythm and S1/S2; Negative Murmur
GI: Soft, Nontender and Nondistended
Neuro: Awake, Alert, Oriented and No Motor Deficits
Psych: Calm
[2023-12-08] MEDS: ProAmatine PO (10:12)
[2023-12-08] MEDS: STERILE WATER FOR INJECTION 10 ML IV (10:13)
[2023-12-08] MEDS: MAXIPIME 2000 MG IV (10:14)
--- NOTE | 2023-12-08 10:21 | PTCARENOTE ---
Addendum entered by Alona Isidro RN 12/08/23 10:40:
Dr Dorantes made aware that patient continues to need cuing with insulin and self-injection. Confirmed with Fabi MCGUIRE that [facility] will review insulin/self-injection. Also confirmed with her that meds/equipment will be delivered today to patient's home.
Original Note:
Assumed care of patient at beginning of this shift. Patient ordered for discharge. Instructed in insulin administration; patient was able to self-inject with cuing. Reviewed d/c plan with SHAYLA Dunlap who stated [facility] nurse will go out to see patient at
2pm. Fabi stated that [facility] nurse will 'dry teach' patient how to do antibiotic infusion so he will be able to do at 22:00 when his next dose is due. Confirmed with VAT RN that patient can go home with midline. This nurse requested that home care
nurse also review insulin teaching with patient and ; Fabi confirmed that home nurse will do review with patient. Patient requested that be present for discharge instructions. See worklist for full assessment and vital signs; see MAR for med
administration.
--- NOTE | 2023-12-08 12:12 | PTCARENOTE ---
Addendum entered by Alona Isidro RN 12/08/23 13:05:
Instructed by Dr Dorantes to draw a line through the label instruction comment for dexamethasone as he is unable to remove comment, said it is from admission. He stated patient is to continue.
Addendum entered by Alona Isidro RN 12/08/23 12:17:
Confirmed with Dr Dorantes that patient is to resume metformin in addition to insulin, he will send over a prescription for trazadone and will update med list for dexamethasone removing label instruction. He also stated that he is removing ambien from
the med list as patient stated (with daughter also verbalizing on the phone) that trazadone has been working well for him.
Original Note:
Patient for discharge; VN will be at their home at 2pm. When reviewing instructions with patient, and daughter (daughter via speaker phone) it was noted that clarification was needed regarding medications: dexamethasone had label instruction
that read: take 8mg evening of 11/26 and 8mg morning of 11/27 then stop; Patient stated he does not have a prescription for trazadone as he was not on this med prior to admission and wants to verify that patient is to resume metformin in
addition to insulins. [place] text sent to Dr Dorantes to verify and update med list if needed.
--- NOTE | 2023-12-08 12:38 | PTCARENOTE ---
Patient stated he prefers to eat lunch at home and will do insulins at home with meal.
--- NOTE | 2023-12-08 13:41 | PTCARENOTE ---
After patient had left, patient's daughter called stating novolog pen is not covered by patient's insurance but humalog pen is. Dr Dorantes notified via tiger text with daughter's phone number and phone number to [facility] [place]. He stated he will change. Fabi baird
also made aware.
--- NOTE | 2023-12-08 15:02 | CM ---
Patient with Hx multiple myeloma on chemo with Dx Shock -suspected sepsis, Lt Pleural effusion, Intermittent lethargy with weakness, acute ambulatory dysfunction, ANAI. Seen by DM Educator.
Spoke with [facility] (fax [phone]); delivery med/supplies is confirmed today prior to 2pm [facility] Nurse visit.
Spoke with Americo Luque; informed her of d/c today. Ene confirms nurse visit this afternoon for dry teaching IV Abx. Patient will have morning dose here and do his own dose this evening. Ene is aware CM confirmed med/supply delivery today with
[facility]. Ene is aware of request for SN to review insulin administration/teaching with patient at home.
Met with patient, and spoke with his & daughter Bridget by phone; both are aware of d/c today with plan for [facility] nurse visit today 2pm after [facility] delivers the Abx/supplies, and that patient will be able to do his evening dose today.
Daughter made aware that nurse requested VN to review insulin administration.
The patient says he feels ready to go home today. IMM completed. Transport home today with family.
Plan home with [facility] for home IV Infusion, with [facility] for SN/PT/OT, with [facility] Caregivers.
[2023-12-09 00:04] LABS: Free Kappa Light Chains,Quant 2349.16 mg/L (3.30-19.40); Free Lambda Light Chains,Quant 2.18 mg/L (5.71-26.30)
--- NOTE | 2023-12-09 16:45 | W.DCSUMMARY ---
Discharge Summary
Discharge Data
Date of Admission: 12/03/23
Date of Discharge: 12/08/23
-
Pending Results: No
Hospital Course
Discharging Physician : Dr Duong Dorantes
Disposition : Home with home care
Primary care physician : Dr. Eloy Hunter
Principal Discharge diagnosis :
Septic shock
Left empyema from Pseudomonas
Acute kidney injury
Chronic Discharge diagnosis :
Multiple myeloma
Type 2 diabetes mellitus
Pulmonary hypertension
Prostate cancer s/p prostatectomy
Chronic gastric congestive heart failure
Essential hypertension
Hyperlipidemia
Mild aortic stenosis
History of diverticulitis
History of nephrolithiasis
Hospital Course :
73 male with above-mentioned past medical history came to ER with new onset of generalized weakness and ambulatory dysfunction. Patient had episode of fever and was hypotensive in ER. As part of workup patient had chest x-ray which showed a large
left-sided pleural effusion. Patient had resultant hypoxia from this. Patient was felt to having some septic shock going on and required Levophed support. Cardiology was involved in care initially as there was suspicion of pleural effusion being
related to heart failure exacerbation. Interventional radiology was involved in as well and patient underwent thoracentesis of 1.1 L punch colored pleural fluid with high neutrophilic count. Patient pleural fluid culture later identified
Pseudomonas organism patient diagnosed to having empyema. Patient was being maintained on broad-spectrum antibiotics and ID adjusted antibiotic to cefepime based on susceptibility. Repeat chest x-ray showing some persistent residual effusion after
discussion with pulmonology and IRAD patient had a left sided chest tube placement. After improvement in effusion there was minimal residual effusion left. Patient had a CT chest done which did not show any room for chest tube manipulation. Chest
tube was taken out. Home infusion set up was arranged. Patient to follow-up with pulmonology in office for follow-up chest x-ray.
Acute kidney injury likely from shock and sepsis related, this resolved with creatinine back to 1.1. Nephrology was following along. Patient was resumed back on Lasix at discharge.
Patient discharged home post medical stabilization
Important imaging findings :
None
Procedure findings :
None
Discharge Plan
-
Patient Disposition: Home with Home Care
Discharge Diagnosis/Procedures: Left empyema from pseudomonas. sepsis
Condition: Fair
Diet: Low Sodium and Diabetic, Carb Controlled
Activity: As tolerated
Driving Restrictions: No driving
Bathing Restrictions: OK to Shower
Referrals:
Eloy Hunter MD [Family Provider] - in one week
Laurent Vargas MD [Active] - in two to four weeks
Kamilah English MD [Active] - in two to three weeks
Prescriptions:
New
insulin glargine [Lantus Solostar U-100 Insulin] 100 unit/mL (3 mL) Insulin Pen
25 unit SC BID Qty: 5 0RF
Rx Instructions:
TAKE 25 UNITS IN THE MORNING AND AT BEDTIME
(DME) pen needle, diabetic [BD Ultra-Fine Natalie Pen Needle] 32 gauge x 5/32' Needle
Qty: 200 0RF
Rx Instructions:
PT TAKING INSULIN 5 TIMES A DAY
trazodone 50 mg Tablet
50 mg PO HS Qty: 30 0RF
cefepime 2 gram Recon Soln
2,000 mg IV Q12H Qty: 10 0RF
Rx Instructions:
FOR DOCUMENTATION USE ONLY
Last dose 12/27/23.
(DME) OneTouch Verio test strips Strip
Qty: 200 0RF
Rx Instructions:
use AC and HS for glucose check
insulin lispro [Humalog KwikPen Insulin] 100 unit/mL insulin pen
16 unit SC AC Qty: 15 0RF
Continued
red yeast rice 600 MG tablet
1,200 mg PO DAILY
cyanocobalamin (vitamin B-12) 1,000 mcg Tablet
1,000 mcg PO DAILY
acyclovir 400 mg Tablet
400 mg PO BID
tamsulosin [Flomax] 0.4 mg Capsule
0.4 mg PO QPM
loratadine [Claritin] 10 mg Tablet
10 mg PO DAILY PRN (Reason: allergies)
Xgeva 120 mg/1.7 mL (70 mg/mL) Solution
120 mg SC [id number]
coQ10 (ubiquinol) 100 mg Capsule
100 mg PO DAILY
furosemide [Lasix] 80 mg tablet
80 mg PO DAILY
sulfamethoxazole-trimethoprim 800-160 mg tablet
1 tab PO MOWEFR@0800
ambrisentan [Letairis] 5 mg tablet
5 mg PO DAILY
guaifenesin [Mucinex] 600 mg Tablet Extended Release 12hr
600 mg PO BID
cholecalciferol (vitamin D3) [Vitamin D3] 25 mcg (1,000 unit) Tablet
25 mcg PO DAILY
mupirocin 2 % Ointment
1 applic intranasal BID Qty: 15 0RF
metformin 1,000 mg Tablet
1,000 mg PO BID@0800,1700 Qty: 60 0RF
dexamethasone 4 mg tablet
8 mg PO BID Qty: 4 0RF
Rx Instructions:
Take 8mg evening of 11/26 and 8mg morning of 11/27 then stop
talquetamab-tgvs
1 dose SC Q2W Qty: 0 0RF
Rx Instructions:
Follow up with oncology office for discussion regarding resumption of therapy
Changed
sildenafil (pulm.hypertension) 20 mg tablet
10 mg PO TID Qty: 0 0RF
Discontinued
zolpidem [Ambien] 5 mg Tablet
5 mg PO HS PRN (Reason: insomnia)
glipizide 5 mg Tablet
5 mg PO BID@0800,1700 Qty: 60 0RF
amoxicillin-pot clavulanate 875-125 mg tablet
1 tab PO BID Qty: 5 0RF
Discharge Orders:
Discharge Patient (As Directed); Ordered 12/08/23
Ordered By: Duong Dorantes
Discharge Date and Time
Discharge Date/Time: 12/08/23 12:50
Print Language: THAI
--- NOTE | 2023-12-10 09:06 | PTCARENOTE ---
Diabetes Education- Spoke with Dasia at home, states he and Chanda are doing well with the insulin injections 'it took a couple of times but we are good now'. Reminded him to reach out if he has any questions.
[2023-12-11 23:55] LABS: Albumin 2.09 g/dL (3.75-5.01); Alpha 1 Globulin 0.37 g/dL (0.19-0.46); Alpha 2 Globulin 0.71 g/dL (0.48-1.05); SPEP IFE Reflex IFE Done; Total Protein-Electrophoresis 7.6 g/dL (6.3-8.2)
[2023-12-11 23:57] LABS: IgA <2 mg/dL (68-408); IgG 3558 mg/dL (768-1632); IgM <10 mg/dL (35-263)
== END 2023-12-08 12:50 | disposition home health service (06) | DRG 871 ==
LOC: IMU 04:20
PROVIDERS: Radiology Diagnostic Radiology; Radiology Vascular & Interventional Radiology; ADMITTING PHYSICIAN Internal Medicine; ATTENDING PHYSICIAN Hospitalist; CONSULT PHYSICIAN Internal Medicine Cardiovascular Disease; CONSULT PHYSICIAN Internal Medicine Critical Care Medicine; CONSULT PHYSICIAN Internal Medicine Infectious Disease; CONSULT PHYSICIAN Specialist; EMERGENCY PHYSICIAN Emergency Medicine; FAMILY PHYSICIAN Family Medicine
PROC: 0W9B3ZZ Drainage of Left Pleural Cavity, Percutaneous Approach (ICD-10-PCS; 2023-12-03)
PROC: 0W9B30Z Drainage of Left Pleural Cavity with Drainage Device, Percutaneous Approach (ICD-10-PCS; 2023-12-04)
PROC: 0WPBX0Z Removal of Drainage Device from Left Pleural Cavity, External Approach (ICD-10-PCS; 2023-12-08)
DX: A41.52 Sepsis due to Pseudomonas (principal); J18.9 Pneumonia, unspecified organism; J86.9 Pyothorax without fistula; K75.0 Abscess of liver; R65.21 Severe sepsis with septic shock; I50.42 Chronic combined systolic (congestive) and diastolic (congestive) heart failure; C90.00 Multiple myeloma not having achieved remission; E87.1 Hypo-osmolality and hyponatremia; N17.9 Acute kidney failure, unspecified; J90 Pleural effusion, not elsewhere classified; D84.9 Immunodeficiency, unspecified; J98.11 Atelectasis; I13.0 Hypertensive heart and chronic kidney disease with heart failure and stage 1 through stage 4 chronic kidney disease, or unspecified chronic kidney disease; D61.818 Other pancytopenia; K57.20 Diverticulitis of large intestine with perforation and abscess without bleeding; I27.21 Secondary pulmonary arterial hypertension; I27.29 Other secondary pulmonary hypertension; E11.22 Type 2 diabetes mellitus with diabetic chronic kidney disease; N18.32 Chronic kidney disease, stage 3b; E83.51 Hypocalcemia; E53.8 Deficiency of other specified B group vitamins; K76.0 Fatty (change of) liver, not elsewhere classified; R09.02 Hypoxemia; G92.00 Immune effector cell-associated neurotoxicity syndrome, grade unspecified; R06.89 Other abnormalities of breathing; M47.816 Spondylosis without myelopathy or radiculopathy, lumbar region; E78.5 Hyperlipidemia, unspecified; I25.10 Atherosclerotic heart disease of native coronary artery without angina pectoris; E11.65 Type 2 diabetes mellitus with hyperglycemia; R06.09 Other forms of dyspnea; G47.00 Insomnia, unspecified; Z87.01 Personal history of pneumonia (recurrent); Z85.46 Personal history of malignant neoplasm of prostate; Z92.3 Personal history of irradiation; Z87.442 Personal history of urinary calculi; Z87.891 Personal history of nicotine dependence; Z88.3 Allergy status to other anti-infective agents; Z88.1 Allergy status to other antibiotic agents; Z22.322 Carrier or suspected carrier of Methicillin resistant Staphylococcus aureus; Z11.52 Encounter for screening for COVID-19
CPT/HCPCS: 88305; 32555; 32557; 36415; 71045; 71046; 71250; 74176; 80048; 80053; 82150; 82232; 82550; 82570; 82784; 82945; 82947; 82962; 83521; 83605; 83615; 83880; 83935; 83986; 84100; 84155; 84157; 84165; 84300; 84478; 84484; 85025; 85027; 86334; 87015; 87040; 87070; 87077; 87102; 87116; 87186; 87205; 87206; 87502; 87811; 88112; 88341; 88342; 89051; 93005; 97116; 97162; 97166; 97535; 99152; 99153; 99285; C1729; C1769

== ENCOUNTER → 2023-12-14 08:34 | Outpatient (REF) | payer MEDICARE, OTHER, SELFPAY ==
[2023-12-14 09:21] LABS: % Basophils 0.9 % (0-2); % Eosinophils 0.2 % (0-6); % Immature Granulocytes 3.9 % (0-0.5); % Lymphocytes 51.9 % (20.5-51.1); % Monocytes 6.4 % (1.7-9.3); % Neutrophils 36.7 % (42.2-75.2); Absolute Basophils 0.1 10^3/uL (0-0.2); Absolute Immature Granulocytes 0.2 10^3/uL (0-0.05); Absolute Lymphocytes 2.9 10^3/uL (1.2-3.4); Absolute Monocytes 0.4 10^3/uL (0.1-0.6); Absolute Neutrophils 2.1 10^3/uL (1.4-6.5); Hematocrit 30.4 % (39.0-52.0); Hemoglobin 10.5 g/dL (13.0-18.0); Mean Corp Hgb Conc. 34.5 g/dL (33.0-37.0); Mean Corpuscular Hgb 32.1 pg (27.0-31.0); Nucleated Red Blood Cells % 0 % (-); Red Blood Cell Count 3.27 10^6/uL (4.70-6.10); Red Cell Dist. Width 19.4 % (11.5-14.5); White Blood Cell Count 5.6 10^3/uL (4.8-10.8)
[2023-12-14 09:54] LABS: ALT (SGPT) 36 U/L (0-50); AST (SGOT) 27 U/L (17-59); Albumin 3.2 g/dl (3.5-5.0); Alkaline Phosphatase 91 U/L (38-126); Blood Urea Nitrogen 81 mg/dl (9-20); Calcium 10.1 mg/dl (8.4-10.2); Carbon Dioxide 18 mmol/L (22-30); Chloride 106 mmol/L (98-107); Glucose 91 mg/dl (70-99); Sodium 133 mmol/L (135-145); Total Bilirubin 0.9 mg/dl (0.2-1.3); Total Protein 9.5 g/dl (6.3-8.2); eGFR 41.78
[2023-12-14 10:33] LABS: Mean Platelet Volume 10.4 fL (7.4-10.4); Platelet Count 69 10^3/uL (130-400)
[2023-12-15 18:06] LABS: Beta-2-Microglobulin 42.7 mg/L (<=3.0)
== END ==
LOC: REG 08:34
PROVIDERS: ATTENDING PHYSICIAN Internal Medicine Hematology & Oncology
DX: C61 Malignant neoplasm of prostate (principal); E53.9 Vitamin B deficiency, unspecified; D64.9 Anemia, unspecified; C90.00 Multiple myeloma not having achieved remission; C79.51 Secondary malignant neoplasm of bone; D64.81 Anemia due to antineoplastic chemotherapy; N39.0 Urinary tract infection, site not specified; D63.1 Anemia in chronic kidney disease; N18.30 Chronic kidney disease, stage 3 unspecified; E83.52 Hypercalcemia
CPT/HCPCS: 36415; 80053; 82232; 82784; 83521; 84155; 84165; 85025; 86334

== ENCOUNTER 2023-12-16 13:57 | Inpatient (IN) | payer OTHER, SELFPAY ==
[2023-12-16] VITALS (11 sets, daily range): BP systolic 94–110; BP diastolic 43–89; BMI 27.0
--- NOTE | 2023-12-16 09:47 | ED.GENMED ---
History of Present Illness
General
Chief Complaint: Fall
Source: patient, spouse, family and previous hospital records
Exam Limitations: none
Time Seen by Provider: 12/16/23 09:30
Nursing documentation reviewed up to this point in time: agreed with
Travel History
Have you had any contact with someone who has COVID-19?: No
Do you have any symptoms of coronavirus? Fever > 100 degrees, chills, cough, shortness of breath, sore throat, loss of taste or smell, muscle aches, or headache?: No
History of Present Illness
History of Present Illness:
73-year-old male history multiple myeloma presents after a fall apparently had a nosebleed which was spontaneous and went to the bathroom to clean up fell struck his head on the counter, has a headache denies fever denies chest pain or shortness of
breath, bleeding is subsided
1045 additional history patient was recently admitted with sounds like an empyema discharged with a midline to ceftriaxone twice daily according to the spouse patient has been confused he is eating
Past History
Past History
ED Past Medical History: Cancer (Prostate cancer status post prostatectomy and radiation. Multiple myeloma), CHF, HTN, NIDDM, Renal failure and Other (renal stones, diverticulitis, urosepsis)
ED Past Surgical History: Urological
Social History
Tobacco: Non-smoker
Alcohol: None
Drug: None
Personal:
Living: with family
Employment: Retired
Family History
Family History: Other (reviewed and noncontributory)
Review of Systems
Review of Systems
All Other Systems: Not applicable
Constitutional: Reports fatigue; Denies fever
EENT: Reports other (Nosebleed)
Respiratory: Reports no symptoms
Cardiac: Reports no symptoms
ABD/GI: Reports no symptoms
Neurological: Reports headache and weakness
Hematologic/Lymphatic: Reports bleeding (Nosebleed)
Phy Exam
Physical Exam
Physical Exam:
Physical Exam
General: Chronically ill-appearing male
Neck: Dry blood in his right and left neck
Heart: Regular
Lungs: no acute respiratory distress. clear bilaterally
Abdomen: Nontender
Neuro: Awake alert and oriented globally weak
Skin: no rash
Psychiatric: cooperative
Extremities: no edema.
Course
Orders/Labs/Results
Orders:
Orders
12/16/23 09:39
Electrocardiogram (*1) Urgent
Reason for Study: Other
Other Reason for Exam: trauma
CT Cervical Spine W/o Iv Contr Urgent
Comment:
Reason For Exam: fall
CT Head W/o Iv Contrast Urgent
Comment:
Reason For Exam: fall
Cardiac Monitoring- Treatment ONCE
EKG- Treatment ONCE
12/16/23 09:55
Type+Screen Urgent
Complete Blood Count/With Diff Urgent
Comprehensive Metabolic Panel Urgent
12/16/23 10:43
CR Chest Portable - 1 View Urgent
Comment:
Reason For Exam: fall
Reason Study Needs to be Portable: Patient Unstable
12/16/23 10:48
0.9% Sodium Chloride 1000 ml [Nss] 1,000 ml IV BOLUS
12/16/23 11:00
Blood Culture Q30M
EMELY Source: Blood/Venous
Specimen Description:
12/16/23 11:30
Blood Culture Q30M
EMELY Source: Blood/Venous
Specimen Description:
Abnormal Lab Results
12/16/23
09:55
RBC 3.05 L 10^6/uL
(4.70-6.10)
Hgb 9.8 L g/dL
(13.0-18.0)
Hct 27.8 L %
(39.0-52.0)
MCH 32.1 H pg
(27.0-31.0)
RDW 19.7 H %
(11.5-14.5)
Plt Count 73 L 10^3/uL
(130-400)
MPV 10.5 H fL
(7.4-10.4)
Sodium 130 L mmol/L
(135-145)
Carbon Dioxide 15 L mmol/L
(22-30)
Creatinine 2.7 H mg/dL
(0.7-1.3)
Glucose 112 H mg/dl
(70-99)
Calcium 10.4 H mg/dl
(8.4-10.2)
ALT 84 H U/L
(0-50)
Alkaline Phosphatase 144 H U/L
(38-126)
Total Protein 9.6 H g/dl
(6.3-8.2)
Albumin 3.2 L g/dl
(3.5-5.0)
12/16/23 09:55
12/16/23 09:55
Vital Signs
Initial and Last Documented VS:
Initial Vital Signs
Temp Pulse Resp BP Pulse Ox
97.9 F 91 20 96/58 93
12/16/23 08:46 12/16/23 08:46 12/16/23 08:46 12/16/23 08:46 12/16/23 08:46
Last Documented Vital Signs
Temp Pulse Resp BP Pulse Ox
97.9 F 96 14 94/59 92
12/16/23 08:46 12/16/23 10:11 12/16/23 10:11 12/16/23 10:11 12/16/23 10:11
MDM/Problems Addressed
Differential Diagnosis Includes:
Vasovagal skull fracture intracerebral hemorrhage electrolyte abnormality anemia thrombocytopenia deconditioning
MDM/Problems Addressed:
Fall
Chronic conditions affecting care: Kidney disease and Cancer
Acute Exacerbation and/or Progression of Chronic Illness: Kidney disease and Cancer
*Radiology
Radiology exam reviewed: radiology read reviewed
*Pulse Oximetry
Patient hypoxic: no
*Fabrication Engineer Interpretation
Rate: normal
Interpretation: normal
Heart Rate: 78
Rhythm: sinus
*Critical Care Note
Total Time (30-74mins, 75-104mins- exclusive of procedures): 31
Update Note
Update Note:
Update labs noted imaging noted prior records briefly reviewed will check culture start of saline hydration will require admission
ED Attending Note
-
Portions of this chart may have been created with voice recognition software.� Occasional wrong word or��sound alike� substitutions may have occurred due to the inherent limitations of voice recognition software.
Discharge Plan
Departure
Patient Disposition: Admit
Date of Disposition: 12/16/23
Time of Disposition: 10:58
Admit to: Telemetry
Presentation/result/management discussed w/ accepting MD/DO: Hospitalist
Patient with high blood pressure during this ER visit?: No
Condition: Serious
Covid-19: Not Applicable
Discharge Problem:
Multiple myeloma not having achieved remission, Immunocompromised, Hypertensive heart and chronic kidney disease with heart failure and stage 1 through stage 4 chronic kidney disease, or unspecified chronic kidney disease, Weakness, Pancytopenia,
ANAI (acute kidney injury)
Prescriptions:
No Action
red yeast rice 600 MG tablet
1,200 mg PO DAILY
cyanocobalamin (vitamin B-12) 1,000 mcg Tablet
1,000 mcg PO DAILY
acyclovir 400 mg Tablet
400 mg PO BID
tamsulosin [Flomax] 0.4 mg Capsule
0.4 mg PO QPM
loratadine [Claritin] 10 mg Tablet
10 mg PO DAILY PRN (Reason: allergies)
Xgeva 120 mg/1.7 mL (70 mg/mL) Solution
120 mg SC [id number]
coQ10 (ubiquinol) 100 mg Capsule
100 mg PO DAILY
furosemide [Lasix] 80 mg tablet
80 mg PO DAILY
sulfamethoxazole-trimethoprim 800-160 mg tablet
1 tab PO MOWEFR@0800
ambrisentan [Letairis] 5 mg tablet
5 mg PO DAILY
guaifenesin [Mucinex] 600 mg Tablet Extended Release 12hr
600 mg PO BID
cholecalciferol (vitamin D3) [Vitamin D3] 25 mcg (1,000 unit) Tablet
25 mcg PO DAILY
mupirocin 2 % Ointment
1 applic intranasal BID Qty: 15 0RF
metformin 1,000 mg Tablet
1,000 mg PO BID@0800,1700 Qty: 60 0RF
insulin glargine [Lantus Solostar U-100 Insulin] 100 unit/mL (3 mL) Insulin Pen
25 unit SC BID Qty: 5 0RF
Rx Instructions:
TAKE 25 UNITS IN THE MORNING AND AT BEDTIME
(DME) pen needle, diabetic [BD Ultra-Fine Natalie Pen Needle] 32 gauge x ' Needle
Qty: 200 0RF
Rx Instructions:
PT TAKING INSULIN 5 TIMES A DAY
trazodone 50 mg Tablet
50 mg PO HS Qty: 30 0RF
cefepime 2 gram Recon Soln
2,000 mg IV Q12H Qty: 10 0RF
Rx Instructions:
FOR DOCUMENTATION USE ONLY
Last dose 12/27/23.
dexamethasone 4 mg tablet
8 mg PO BID Qty: 4 0RF
Rx Instructions:
Take 8mg evening of 11/26 and 8mg morning of 11/27 then stop
sildenafil (pulm.hypertension) 20 mg tablet
10 mg PO TID Qty: 0 0RF
talquetamab-tgvs
1 dose SC Q2W Qty: 0 0RF
Rx Instructions:
Follow up with oncology office for discussion regarding resumption of therapy
(DME) Fely Robison test strips Strip
Qty: 200 0RF
Rx Instructions:
use AC and HS for glucose check
insulin lispro [Humalog KwikPen Insulin] 100 unit/mL insulin pen
16 unit SC AC Qty: 15 0RF
Referrals:
Eloy Hunter MD [Family Provider] -
Interventions
Interventions:
*Risk Screen - Suicide Last Done: 12/16/23 08:46
*General Assessment Last Done: 12/16/23 08:46
*Neglect/Abuse Screening Last Done: 12/16/23 08:46
ED- Fall Risk Assessment Last Done: 12/16/23 10:00
*ED COVID-19 Vaccine History Last Done: 12/16/23 08:46
ED-Musculoskeletal Assessment Last Done: 12/16/23 10:00
ED- Neurological Assessment Last Done: 12/16/23 10:00
ED-Skin Assessment Last Done: 12/16/23 10:00
Discharge Date and Time
Print Language: HONG KONGER
[2023-12-16 10:10] LABS: % Basophils 0.5 % (0-2); % Immature Granulocytes 1.5 % (0-0.5); % Monocytes 6.4 % (1.7-9.3); % Neutrophils 42.6 % (42.2-75.2); Absolute Immature Granulocytes 0.1 10^3/uL (0-0.05); Absolute Lymphocytes 2.9 10^3/uL (1.2-3.4); Absolute Monocytes 0.4 10^3/uL (0.1-0.6); Absolute Neutrophils 2.5 10^3/uL (1.4-6.5); Hematocrit 27.8 % (39.0-52.0); Hemoglobin 9.8 g/dL (13.0-18.0); Mean Corp Hgb Conc. 35.3 g/dL (33.0-37.0); Mean Corpuscular Hgb 32.1 pg (27.0-31.0); Mean Corpuscular Volume 91.1 fL (80.0-94.0); Mean Platelet Volume 10.5 fL (7.4-10.4); Nucleated Red Blood Cells % 1.2 % (-); Platelet Count 73 10^3/uL (130-400); Red Blood Cell Count 3.05 10^6/uL (4.70-6.10); Red Cell Dist. Width 19.7 % (11.5-14.5); White Blood Cell Count 5.9 10^3/uL (4.8-10.8)
[2023-12-16 10:31] LABS: ALT (SGPT) 84 U/L (0-50); AST (SGOT) 50 U/L (17-59); Albumin 3.2 g/dl (3.5-5.0); Alkaline Phosphatase 144 U/L (38-126); Calcium 10.4 mg/dl (8.4-10.2); Carbon Dioxide 15 mmol/L (22-30); Chloride 103 mmol/L (98-107); Glucose 112 mg/dl (70-99); Potassium 4.2 mmol/L (3.5-5.1); Sodium 130 mmol/L (135-145); Total Bilirubin 0.7 mg/dl (0.2-1.3); Total Protein 9.6 g/dl (6.3-8.2)
[2023-12-16 10:46] LABS: Estimated Creatinine Clearance 22 ml/min; eGFR 23.98
[2023-12-16 11:10] LABS: Blood Urea Nitrogen 122 mg/dl (9-20)
[2023-12-16] MEDS: NSS 1000 IV (11:42)
[2023-12-16 11:51] LABS: Urine Albumin Trace (Neg - Trace); Urine Bilirubin Negative (Negative); Urine Character Clear (Clear); Urine Color Yellow; Urine Glucose Negative (Negative); Urine Ketone Negative (Negative); Urine Leukocyte Negative (Negative); Urine Nitrite Negative (Negative); Urine Occult Blood 1+ (Negative); Urine Specific Gravity 1.015 (<1.030); Urine Urobilinogen Negative (Neg - 1+)
[2023-12-16 11:59] LABS: Lactic Acid 0.9 mmol/L (0.7-2.0)
--- NOTE | 2023-12-16 12:36 | CM ---
CM following re: discharge planning.
Reviewed pt's chart.
Pt is a 73 year old male, arrived to ER after he fell at home.
Pt reports he lives with spouse in a 2SH, 2 steps to enter, has 2 supportive daughters, ambulates without any assistive devices, had [facility] in the past, currently active with [facility] and [facility]. 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
Hospice consult noted. Pt and his family preferred hospice. A referral to hospice made. Per hospice, pt probably will be admitted to inpatient hospice today with [facility].
D/C plan: inpatient hospice with GIP.
CM is available for emotional support.
[2023-12-16 13:02] LABS: Urine Bacteria Few (Negative); Urine White Cell None Seen /HPF (0-5)
[2023-12-16] MEDS: MAXIPIME 2000 MG IV (13:04)
--- NOTE | 2023-12-16 13:06 | HOSPNOTE ---
Referral received. Patient meets inpatient hospice criteria for the management of pain, anxiety, agitation and confusion that could not be managed in the outpatient setting. Dr. James and Dr. Rogers are in agreement. Spoke to family and they are
in agreement as well. Bed requested on . Patient will be admitted by hospice today as inpatient GIP level of care.
--- NOTE | 2023-12-16 13:44 | HPS.HSE ---
Family Physician
-
Family Physician: Eloy Hunter
Chief Complaint
-
fall
History of Present Illness
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
prostate cancer status post prostatectomy, chronic diastolic congestive heart failure, chronic kidney disease stage III who presents with his third admission in the past 3 weeks. Patient is confused and cannot offer any insight to his history at
this time. His reported that patient had a nosebleed (he has an ulcer in his nose that he has been using Bactroban for) and he went into the bathroom to clean himself up. She was standing next to him and he fell backwards hitting his head on
the sink. He was too weak to get up on his own so he was brought into the hospital.
Workup in the emergency department finds him to be confused, agitated and yelling at his , acute kidney injury with hypotension, severe fatigue. He also presents with a new bedsore which she states is painful.
After lengthy discussion with the patient's and daughter Bridget, explained that this is his third admission in 3 weeks. They have said that he has been unable to get chemotherapy for over a month and the last therapy that was given caused
him to have neurotoxic side effects. We spoke about hospice which they are in full agreement with. Hospice consult was placed. Consents were signed. The patient will be admitted to inpatient hospice.
Medical History
Past Medical History
Past Medical History: Reports Other
Additional Past Medical History:
End-stage multiple myeloma not having achieved remission, immunosuppression, pancytopenia
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
Prostate cancer
Pseudomonas empyema
Chronic diastolic congestive heart failure
Stage IIIb chronic kidney disease
Type 2 diabetes mellitus
Splenic infarction
Diverticulitis
Hypertensive heart and chronic kidney disease
Pulmonary hypertension
Essential hypertension now hypotensive
Vitamin B12 deficiency
Past Surgical History: Reports Other
Additional Past Surgical History:
Prostate cancer surgery with prostatectomy and radiation
Social History
Unable to obtain full social history at this time due to: Acuity
Tobacco: Former Smoker
Alcohol: None
Drug: None
Personal:
Living: With Family
Employment: Retired
Family History
Family History: Not pertinent
Allergies / Home Medications
Allergies reflects when Allergies were last updated in [employer].
Home Medications with original date entered in [employer]
Allergy/Medication List:
Allergies
Allergy/AdvReac Type Severity Reaction Status Date / Time
bacitracin Allergy redness Verified 12/16/23 08:57
[From Neosporin
([id number])]
neomycin Allergy redness Verified 12/16/23 08:57
[From Neosporin
([id number])]
polymyxin B Allergy redness Verified 12/16/23 08:57
[From Neosporin
([id number])]
Home Medications
red yeast rice 600 mg tablet 1,200 mg PO DAILY Supplement 11/13/15
acyclovir 400 mg tablet 400 mg PO BID Infection 10/22/22
coQ10 (ubiquinol) 100 mg capsule 100 mg PO DAILY Supplement 10/22/22
cyanocobalamin (vitamin B-12) 1,000 mcg tablet 1,000 mcg PO DAILY Supplement 10/22/22
denosumab 120 mg/1.7 mL (70 mg/mL) subcutaneous solution (Xgeva) 120 mg SC [id number] Cancer 10/22/22
loratadine 10 mg tablet (Claritin) 10 mg PO DAILYPRN PRN allergies 10/22/22
tamsulosin 0.4 mg capsule (Flomax) 0.4 mg PO QPM Urinary issue 10/22/22
furosemide 80 mg tablet (Lasix) 80 mg PO DAILY Fluid Retention/Swelling 11/04/23
ambrisentan 5 mg tablet (Letairis) 5 mg PO DAILY Endothelin Receptor Antag 11/21/23
guaifenesin 600 mg tablet, extended release 12 hr (Mucinex) 600 mg PO BIDPRN PRN cough 11/21/23
sulfamethoxazole 800 mg-trimethoprim 160 mg tablet 1 tab PO MOWEFR@0800 prophylaxis 11/21/23
cholecalciferol (vitamin D3) 25 mcg (1,000 unit) tablet (Vitamin D3) 25 mcg PO DAILY Supplement 11/22/23
metformin 1,000 mg tablet 1,000 mg PO BID@0800,1700 #60 tabs 11/27/23
insulin glargine 100 unit/mL (3 mL) subcutaneous pen (Lantus Solostar U-100 Insulin) 25 unit (0.25 mL) SC BID Diabetes #5 ea 12/07/23
cefepime 2 gram solution for injection 2,000 mg IV Q12H #10 ea 12/08/23
insulin lispro 100 unit/mL subcutaneous pen (Humalog KwikPen (U-100) Insulin) 16 unit (0.16 mL) SC AC #15 mL 12/08/23
sildenafil (pulm.hypertension) 20 mg tablet 10 mg (1/2 x 20 mg) PO TID pulmonary hypertension #0 tabs 12/08/23
talquetamab-tgvs 1 dose SC Q2W multiple myeloma ##0 12/08/23
ondansetron HCl 8 mg tablet 8 mg PO [id number] PRN nausea 12/16/23
trazodone 50 mg tablet 50 mg PO HSPRN PRN sleep 12/16/23
Review of Systems
-
Unable to obtain full review of systems at this time due to: Acuity
Physical Exam
Vital Signs
Vital Signs
Temp Pulse Resp BP Pulse Ox
97.9 F 93 21 110/65 96
12/16/23 08:46 12/16/23 13:00 12/16/23 13:00 12/16/23 13:00 12/16/23 13:00
Physical Exam
General: Well Developed and Appears Chronically Ill
HEENT: NormoCephalic and Anicteric; No Atraumatic (scalp hematoma) or Oxygen
Respiratory: Clear; No Wheezes, Rales, Rhonchi or Crackles
Cardiac: S1/S2 and Regular Rhythm; No Murmur
GI: Soft, Non Tender, Non Distended and Normal Bowel Sounds
Musculoskeletal: No Clubbing, No Cyanosis, No Edema and Other (Significant muscle atrophy)
Skin: Decubitus Ulcers (Pressure related bedsore on sacrum--new)
Neuro: Awake and Other (Confused)
Psych: Agitated (Yelling at his ) and Anxious
Laboratory Results
-
12/16/23 09:55
12/16/23 09:55
Laboratory Results
Lactic Acid 0.9 mmol/L (0.7-2.0) 12/16/23 11:33
Total Bilirubin 0.7 mg/dl (0.2-1.3) 12/16/23 09:55
AST 50 U/L (17-59) 12/16/23 09:55
ALT 84 U/L (0-50) H 12/16/23 09:55
Alkaline Phosphatase 144 U/L (38-126) H 12/16/23 09:55
Impression/Plan
-
Patient is a 73-year-old male
confusion/agitation--multiple reasons--fall, trauma to head (post concussive), ANAI with azotemia (BUN 122), hyponatremia, hypercalcemia--this is the patient's third hospitalization within the last 3 weeks--patient is failing at home--after lengthy
discussion with the patient's and daughter--they are in agreement to pursue hospice--consult was placed, consents have been signed--patient will be admitted to general inpatient hospice--IV morphine boluses with progression to drip if
necessary--patient at risk for becoming more agitated and/or lethargic after hitting head with low platelet count (73K)--they also understand that he may stabilize and will need to be discharged from the hospital should that occur
other medical issues contributing:
End-stage multiple myeloma not having achieved remission and not candidate for any further therapy
Pseudomonas empyema status post recent chest tube and continued on IV cefepime
Anemia of chronic disease
Thrombocytopenia
Hyponatremia
Acute kidney injury with azotemia
Hypercalcemia
Prostate cancer
Type 2 diabetes mellitus
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
Chronic diastolic congestive heart failure
Significant weakness and deconditioning
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
new onset pressure induced sacral decubitus ulcer (POA)
CODE STATUS--DNR/DNI
[2023-12-16] MEDS: TYLENOL 650 MG PO (14:04)
--- NOTE | 2023-12-16 16:46 | CHAP ---
Called by nurse for Mr. Guidry and family. They requested a tile installer for Sacrament of the Sick and final blessing. I contacted [facility] and spoke to Fr. Alicea, who said they would not come. Then contacted Sunitha, Director of Pastoral Care, who will
send a request to other local priests. Meanwhile, I visited Mr. Guidry and his family, and offered emotional and spiritual support. We prayed together, and a prayer blanket was provided.
--- NOTE | 2023-12-16 17:28 | HOSPNOTE ---
Patient admitted under inpatient level of hospice care for the management of pain, agitation and anxiety that could not be managed in the outpatient setting. Patient will need IV morphine and Ativan PRN to control these symptoms. Attending and
hospice biomedical engineering technician in agreement. and daughter are bedside and signed consents. Patient moved to [address] [place] [id number]. Hospice will visit patient daily. Discharge planning continues.
[2023-12-16] MEDS: MORPHINE SULFATE 2 MG IV (18:00)
--- NOTE | 2023-12-16 21:46 | HOSPNOTE ---
patient admitted onto hospice with a terminal diagnosis of Multiple Myeloma under [facility] level of care as symptoms of pain, anxiety, agitation and confusion can not be managed in the outpatient setting. Everett is under the care of Dr. Bonilla.
Ken in agreement with [facility] status. Patient was AAOx3 with intermittent confusion and anxiety. Agitated when attempted to do full skin assessment. Calmer with family at bedside. Patient c/o severe pain to sacrum. Noted a stg 2 wound to sacrum.
Patient can only tolerate being on left side. Requested Morphine when orders placed. Family coping appropriately. Emotional support provided. Patient will be seen by hospice daily. Discharge planning will continue
[2023-12-16] MEDS: DESYREL 50 MG PO (22:19)
--- NOTE | 2023-12-17 05:54 | PTCARENOTE ---
Patient appeared comfortable throughout shift; denies pain; no complaints; will continue to monitor.
[2023-12-17 07:10] VITALS: BP 120/59
--- NOTE | 2023-12-17 08:02 | W.PN.HOSP.TC ---
Today's Communication/Plan
-
see plan
Assessment / Plan
Assessment / Plan
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
prostate cancer status post prostatectomy, chronic diastolic congestive heart failure, chronic kidney disease stage III who presents with his third admission in the past 3 weeks. Patient is confused and cannot offer any insight to his history at
this time. His reported that patient had a nosebleed (he has an ulcer in his nose that he has been using Bactroban for) and he went into the bathroom to clean himself up. She was standing next to him and he fell backwards hitting his head on
the sink. He was too weak to get up on his own so he was brought into the hospital.
confusion/agitation--multiple reasons--fall, trauma to head (post concussive), ANIA with azotemia (BUN 122), hyponatremia, hypercalcemia--this is the patient's third hospitalization within the last 3 weeks--patient is failing at home-after lengthy
discussion with Dr. Bonilla and the patient's and daughter--they are in agreement to pursue hospice--consult was placed, consents have been signed--patient will be admitted to general inpatient hospice--IV morphine boluses with progression to
drip if necessary--patient at risk for becoming more agitated and/or lethargic after hitting head with low platelet count (73K)--they also understand that he may stabilize and will need to be discharged from the hospital should that occur
-patient is more lucid this AM
-I spoke to patient's daughter, family will be in soon and I will come talk to patient and family after their arrival.
other medical issues contributing:
End-stage multiple myeloma not having achieved remission and not candidate for any further therapy
Pseudomonas empyema status post recent chest tube and continued on IV cefepime
Anemia of chronic disease
Thrombocytopenia
Hyponatremia
Acute kidney injury with azotemia
Hypercalcemia
Prostate cancer
Type 2 diabetes mellitus
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
Chronic diastolic congestive heart failure
Significant weakness and deconditioning
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
new onset pressure induced sacral decubitus ulcer (POA)
CODE STATUS--DNR/DNI
Anticipated Discharge: 24 - 48 hours
Subjective/Interval History
-
Date of Service: December 17, 2023
patient more lucid this morning, remembered me from last visit
Objective Data
-
Vital Signs:
Vital Signs
Temp Pulse Resp BP Pulse Ox
97.8 F 106 18 101/43 96
12/16/23 19:38 12/16/23 19:38 12/16/23 19:38 12/16/23 19:38 12/16/23 19:38
I&O
12/16/23 12/17/23 12/18/23
06:59 06:59 06:59
Intake Total 600 / 600
Balance 600 / 600
Review of Systems
-
History Source: Patient
All other systems: Reviewed and negative
Physical Exam
-
General: No Apparent Distress and Comfortable
HEENT: Oxygen
Respiratory: Clear to Auscultation; Negative Wheezes
Cardiac: Regular Rhythm and S1/S2; Negative Murmur
GI: Soft, Nontender and Nondistended
Neuro: Awake, Alert, Oriented and No Motor Deficits
Psych: Calm
Data Reviewed
-
Diagnostic Radiology: Report Reviewed by me
[2023-12-17] MEDS: NSS (PRESERVATIVE FREE) 0.5 ML IV ×2 (10:11→18:07)
[2023-12-17] MEDS: MORPHINE SULFATE 2 MG IV ×5 (10:12→23:20)
[2023-12-17] MEDS: ATIVAN 1 MG IV ×2 (10:12→18:07)
--- NOTE | 2023-12-17 12:14 | HOSPNOTE ---
Saw patient and he seems quite agitated and painful with any movement. I spoke with floor RN and asked her to medicate for agitation and pain. A lot of emtional support needed for spouse and daughter. The patient remains inpatient hospice for
management of agitation and pain. Patient will be seen daily by band manager.
--- NOTE | 2023-12-17 13:04 | CM ---
Inpatient Hospice. CM will remain available to family and hospice team.
[2023-12-17 19:05] VITALS: BP 102/63
[2023-12-17] MEDS: DESYREL PO (22:19)
[2023-12-18] MEDS: MORPHINE SULFATE 2 MG IV ×4 (02:07→13:52)
[2023-12-18] MEDS: ATIVAN 1 MG IV ×5 (02:17→19:57)
[2023-12-18] MEDS: NSS (PRESERVATIVE FREE) 0.5 ML IV ×5 (02:18→19:58)
[2023-12-18 07:10] VITALS: BP 105/53
--- NOTE | 2023-12-18 08:33 | W.PN.HOSP.TC ---
Today's Communication/Plan
-
end of life care
Assessment / Plan
Assessment / Plan
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
prostate cancer status post prostatectomy, chronic diastolic congestive heart failure, chronic kidney disease stage III who presents with his third admission in the past 3 weeks. Patient is confused and cannot offer any insight to his history at
this time. His reported that patient had a nosebleed (he has an ulcer in his nose that he has been using Bactroban for) and he went into the bathroom to clean himself up. She was standing next to him and he fell backwards hitting his head on
the sink. He was too weak to get up on his own so he was brought into the hospital.
confusion/agitation--multiple reasons--fall, trauma to head (post concussive), ANAI with azotemia (BUN 122), hyponatremia, hypercalcemia, bacteremia
-this is the patient's third hospitalization within the last 3 weeks--patient is failing at home-after lengthy discussion with Dr. Bonilla and the patient's and daughter--they are in agreement to pursue hospice--consult was placed, consents
have been signed--patient was admitted to general inpatient hospice-
-IV morphine boluses with progression to drip if necessary-
-patient at risk for becoming more agitated and/or lethargic after hitting head with low platelet count (73K)
-patient somnolent this morning. I expressed to and daughter that time of passing is more likely in manner of hours to days
other medical issues contributing:
End-stage multiple myeloma not having achieved remission and not candidate for any further therapy
Pseudomonas empyema status post recent chest tube and continued on IV cefepime
Anemia of chronic disease
Thrombocytopenia
Hyponatremia
Acute kidney injury with azotemia
Hypercalcemia
Prostate cancer
Type 2 diabetes mellitus
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
Chronic diastolic congestive heart failure
Significant weakness and deconditioning
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
new onset pressure induced sacral decubitus ulcer (POA)
CODE STATUS--DNR/DNI
Anticipated Discharge: 24 - 48 hours
Subjective/Interval History
-
Date of Service: December 18, 2023
patient somnolent, gurgling and not responsive
appears comfortable
Objective Data
-
Vital Signs:
Vital Signs
Temp Pulse Resp BP Pulse Ox
98.9 F 106 18 102/63 99
12/17/23 19:05 12/17/23 19:05 12/17/23 19:05 12/17/23 19:05 12/17/23 20:00
I&O
12/17/23 12/18/23 12/19/23
06:59 06:59 06:59
Intake Total 600 / 600
Balance 600 / 600
Review of Systems
-
Unable to obtain full review of systems at this time due to: Patient Non-verbal
History Source: Patient
Physical Exam
-
General: No Apparent Distress
Respiratory: Rales
Cardiac: S1/S2
GI: Soft and Nontender
Musculoskeletal: No Edema
Neuro: Sedated
Psych: Calm
Data Reviewed
-
Diagnostic Radiology: Report Reviewed by me
Labs: Labs Reviewed by me
[2023-12-18] MEDS: MORPHINE 100 IV (10:28)
--- NOTE | 2023-12-18 10:30 | PTCARENOTE ---
Pt having restlessness and labored breathing. cloak room attendant at bedside. Morphine step 2 started per order. Family at bedside.
[2023-12-18] MEDS: TYLENOL/FEVERALL 650 MG RECTAL ×2 (10:36→14:47)
--- NOTE | 2023-12-18 11:35 | HOSPNOTE ---
Patient is unresponsive at this time. increased secretions noted and was given medication. Patient spike a fever and was given tylenol supp. Patient had increased heart rate, abdominal breathing which was requiring a morphine drip. Attending was
contacted and in agreement. Emotional support provided to family. Patient was washed and repositioned. Patient will be seen daily by hospice nurse.
[2023-12-18] MEDS: ROBINUL 0.200000000000000011 MG IV ×3 (11:42→19:54)
--- NOTE | 2023-12-18 12:15 | HOSPNOTE ---
Floyd was sleeping peacefully, non-responsive, surrounded by family. We prayed together, thanking God for Yobani' life and love, and asking blessings of peace for Yobani and his family. Daughters shared memories of their father - he spent his life
loving and serving others. He enjoyed playing golf, especially with family members; he loved animals. Statuary Painter provided emotional and spiritual support, and assured the family of continuing visits.
--- NOTE | 2023-12-18 12:35 | HOSPNOTE ---
Fr. Garcia from [facility] came on 12/17/23 to provided Sacrament of the Sick, as requested by family.
[2023-12-18] MEDS: MORPHINE SULFATE 4 MG IV ×6 (14:46→19:42)
--- NOTE | 2023-12-18 20:30 | PTCARENOTE ---
Pt's called this nurse into the room, pt noted pulseless and no respirations, morphine infusion stopped, buttonhole maker hand GENERAL ASSISTANT made aware and at the bedside to pronounce pt.
--- NOTE | 2023-12-18 21:10 | W.PN.DEATH ---
Pronouncement of
-
Called to see patient to pronounce.
No spontaneous heart tones or respirations noted.
Patient not responsive to verbal stimuli.
Patient is pronounced .
Time of : 20:30
Date of : 12/18/23
Cause of : Failure to thrive, end-stage multiple myeloma, left empyema with Pseudomonas, chronic diastolic congestive heart failure, chronic kidney disease stage, diabetes mellitus.
Family Notified: Yes (Family at bedside)
[2023-12-18] MEDS: DESYREL PO (21:23)
--- NOTE | 2023-12-19 14:45 | W.DCSUMMARY ---
Discharge Summary
Discharge Data
Date of Admission: 12/16/23
Date of Discharge: 12/18/23
-
Pending Results: No
Hospital Course
Summary
Time of : 20:30
Date of : 12/18/23
Cause of : End-stage multiple myeloma, left empyema with Pseudomonas
Mr. 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
sugars, prostate cancer status post prostatectomy, chronic diastolic congestive heart failure, chronic kidney disease stage III who presents with his third admission in the past 3 weeks. Patient was confused. He presented after a fall hitting his
head. Head CT with scalp soft tissue hematoma. Labs notable for BUN 122 and creatinine 2.7, Na 130. Given patient was no longer a candidate for chemotherapy and had been declining with multiple recent admission, decision made for inpatient
hospice. He was kept comfortable with transition to a morphine gtt. He with family at bedside.
Discharge Plan
-
Patient Disposition:
Date/Time
Date/Time: 12/18/23 20:30
Discharge Date and Time
Discharge Date/Time: 12/18/23 20:30
Print Language: LEBANESE
== END 2023-12-18 20:30 | disposition expired | DRG 840 ==
LOC: 2 NORTH 13:57
PROVIDERS: ADMITTING PHYSICIAN Internal Medicine; ATTENDING PHYSICIAN Student in an Organized Health Care Education/Training Program; EMERGENCY PHYSICIAN Emergency Medicine; FAMILY PHYSICIAN Family Medicine
DX: C90.00 Multiple myeloma not having achieved remission (principal); J86.9 Pyothorax without fistula; I50.32 Chronic diastolic (congestive) heart failure; D61.818 Other pancytopenia; I13.0 Hypertensive heart and chronic kidney disease with heart failure and stage 1 through stage 4 chronic kidney disease, or unspecified chronic kidney disease; E87.1 Hypo-osmolality and hyponatremia; N17.9 Acute kidney failure, unspecified; Z51.5 Encounter for palliative care; Z66 Do not resuscitate; E11.22 Type 2 diabetes mellitus with diabetic chronic kidney disease; N18.32 Chronic kidney disease, stage 3b; R62.7 Adult failure to thrive; L89.159 Pressure ulcer of sacral region, unspecified stage; E83.52 Hypercalcemia; G92.00 Immune effector cell-associated neurotoxicity syndrome, grade unspecified; Z87.891 Personal history of nicotine dependence; Z90.79 Acquired absence of other genital organ(s); Z68.26 Body mass index [BMI] 26.0-26.9, adult
CPT/HCPCS: 70450; 71045; 72125; 80053; 81003; 81015; 83605; 85025; 86850; 86900; 86901; 87040; 87070; 87147; 87149; 87185; 87205; 93005; 96361; 96374; 99291